=== PATIENT | male | born 1945 | race Caucasian/White ===

== ENCOUNTER 2020-05-08 10:22 | Emergency (ER) | payer OTHER, SELFPAY ==
[2020-05-08 10:33] VITALS: BP 163/53; PULSE 77; RESP 18; TEMP 36.4; O2SAT 98; BMI 24.4
--- NOTE | 2020-05-08 12:18 | XRR_ITS ---
PROCEDURE INFORMATION: Exam: XR Chest, 1 View Exam date and time: 05/08/2020 12:19 PM Age: 75 years old Clinical indication: Other: Syncope TECHNIQUE: Imaging protocol: XR of the chest Views: 1 view. COMPARISON: CR Chest 1 [place] [id number] 03/28/2018 10:21 PM FINDINGS: Lungs: Mild pleural thickening left hemithorax persist. Lungs are well aerated without a focal area of consolidation. Pleural space: Unremarkable. No pleural effusion. No pneumothorax. Heart/Mediastinum: Unremarkable. No cardiomegaly. Bones/joints: Prior sternotomy XR/XR chest 1V portable [id number] IMPRESSION: 1. Mild pleural thickening left hemithorax persist. 2. Lungs are well aerated without a focal area of consolidation.
--- NOTE | 2020-05-08 12:19 | ECG_ITS ---
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 Measurements Intervals [place] Rate: 63 P: ME: -1 QRS: 81 QRSD: 120 T: 36 QT: 394 QTc: 405 Interpretive Statements INDETERMINATE RHYTHM ANTEROSEPTAL MYOCARDIAL INFARCTION , OF INDETERMINATE AGE [40+ ms Q WAVE IN V1-V4] Compared to ECG 03/28/2018 23:02:32 No significant changes Electronically Signed On 05-09-2020 20:24:50 CDT by Tito Hernandez M.D. [id number]
--- NOTE | 2020-05-08 12:57 | ED_ITS ---
HPI - SOB/Dyspnea General: Chief Complaint: Shortness of Breath/Dyspnea Stated Complaint: head pain,sob Time Seen by Provider: 05/08/20 12:26 History of Present Illness: HPI Narrative: 75-year-old male presents to the emergency room with complaint of just generally not feeling well. He had some shortness of breath as well as headaches malaise low-grade subjective fever prior to all of this starting he had a few days of diarrhea. The shortness of breath began 5 days ago diarrhea was a couple of days prior to that. He has a chronic baseline mildly productive cough of clear mucousy sputum it is not changed in character or color or quantity. MD elicited complaint: shortness of breath and cough Pertinent past history: COPD Onset (ago): day(s) Timing: constant Severity: mild Exacerbating factors: exertion and coughing Relieving factors: nothing Known history of: COPD Associated symptoms: Reports chest congestion, cough, lightheadedness, myalgias and nausea; Deny abdominal pain, chest pain, diaphoresis, dizziness, extremity pain, fever(s), hemoptysis, orthopnea, palpitations, paresthesias, polydipsia, polyuria, rash, sense of impending doom, syncope or vomiting Treatment prior to arrival: none Review of Systems Const: Denies: fever(s) or diaphoresis ENMT: Denies: throat pain, ear or mastoid pain, nasal discharge or nasal congestion Card: Reports: lightheadedness; Denies: chest pain, palpitations, syncope or orthopnea Resp: Reports: chest congestion; Denies: hemoptysis GI: Reports: nausea; Denies: abdominal pain or vomiting : Denies: flank pain, dysuria, urinary frequency or urinary urgency Musc: Denies: extremity pain Skin/Breast: Denies: rash or pruritus Neuro: Denies: dizziness Endo: Denies: polyuria or polydipsia PFS ED PFSH: Medical History (Updated 05/08/20 @ 14:48 by Raymundo Gutierrez DO) COPD (chronic obstructive pulmonary disease) Physical Exam Const: COMMON NORMALS: no acute distress GENERAL APPEARANCE: cooperative and comfortable ORIENTATION/CONSCIOUSNESS: Yes oriented to person, Yes oriented to place and Yes oriented to time HENMT: COMMON NORMALS: normocephalic, atraumatic and hearing grossly normal bilaterally HEAD & SCALP: normocephalic and atraumatic Eye: COMMON NORMALS: Equal, round and reactive pupils present, EOMs intact bilaterally, conjunctivae normal and no scleral icterus CONJUNCTIVA: Yes conjunctivae normal PUPIL: Yes Equal, round and reactive pupils present Neck/C-Spine: COMMON NORMALS: full ROM, no lymphadenopathy, supple and no JVD Lymph: LYMPHATIC: no lymphadenopathy noted and no lymphedema noted Resp: AUSCULTATION: crackles (Base) Laterality: bilateral and wheezes expiratory wheezes (mild) Cardio: COMMON NORMALS: no JVD, regular rate, regular rhythm and No murmurs present (Cardio) RATE: regular rate RHYTHM: regular rhythm GI: COMMON NORMALS: Soft to palpation and No hepatosplenomegaly present AUSCULTATION: Yes normoactive bowel sounds PALPATION: Yes Soft to palpation, No Tenderness to palpation present (GI), No Guarding due to palpation present (GI) and Yes No hepatosplenomegaly present Extremity: COMMON NORMALS: normal to inspection, capillary refill normal, no clubbing, cyanosis or edema, no calf tenderness and no pedal edema Neuro: SENSORIUM/ORIENTATION: Yes oriented to person, Yes oriented to place and Yes oriented to time Skin: COMMON NORMALS: no rashes or lesions noted GENERAL SKIN EXAM: no rashes or lesions noted Course Vital Signs: Vital signs: Vital Signs Temperature 97.5 F L 05/08/20 10:33 Pulse Rate 73 05/08/20 15:05 Respiratory Rate 20 H 05/08/20 15:05 Blood Pressure 146/70 05/08/20 15:05 Pulse Oximetry 96 05/08/20 15:05 MDM - SOB/Dyspnea MDM Narrative: Medical decision making narrative: We will discharge him home with at home O2 sat monitor continue to monitor regularly watch for sets of blood fall below 90% or difficulty breathing return if has problems Lab Data: Labs: Lab Results 05/08/20 05/08/20 05/08/20 Range/Units 13:46 13:46 13:46 WBC 6.1 (4.0-10.0) 10^3/ uL RBC 3.42 L (4.1-5.3) 10^6/u L Hgb 11.0 L (11.7-16.6) g/dL Hct 34.6 L (42.0-52.0) % MCV 101.2 H (80-94) fL MCH 32.2 (28.0-34.0) pg MCHC 31.8 (30.0-36.0) g/dL RDW 14.0 (12.1-15.1) % Plt Count 191 (130-400) 10^3/c mm MPV 10.6 H (7.4-10.4) fL Neut % (Auto) 73.9 % Lymph % (Auto) 14.0 % [place] % (Auto) 10.6 % Eos % (Auto) 0.5 % Baso % (Auto) 0.2 % Neut # (Auto) 4.54 (1.8-7.7) 10^3/u L Lymph # (Auto) 0.9 (0.8-4.8) 10^3/u L [place] # (Auto) 0.7 (0.2-0.9) 10^3/u L Eos # (Auto) 0.0 (0.0-0.8) 10^3/u L Baso # (Auto) 0.0 (0.0-0.1) 10^3/u L Nucleated RBC % (a uto) 0 % Nucleated RBCs # 0.0 /100WBC D-Dimer 0.63 H (0-0.59) ug/mIFE U Sodium 136 (136-145) mmol/L Potassium 4.5 (3.5-5.1) mmol/L Chloride 100 (98-107) mmol/L Carbon Dioxide 25 (22-29) mmol/L Anion Gap 15.5 (5-19) BUN 10 (8-23) mg/dL Creatinine 0.8 (0.7-1.2) mg/dL GFR Calculation Not Reportable Glucose 214 H (65-115) mg/dL Calculated Osmolal ity 287 (285-295) mOsm/k g Lactate (0.5-2.2) mmol/L Calcium 9.9 (8.5-10.5) mg/dL Total Bilirubin 0.5 (0.15-1.2) mg/dL AST 35 (0-40) U/L ALT 33 (0-41) U/L Alkaline Phosphata se 93 (40-130) IU/L Troponin T Baselin e (0-15) ng/L NT-Pro-B Natriuret Pep 2152 H (0-450) pg/mL Total Protein 6.9 (6.6-8.7) g/dL Albumin 4.3 (3.5-5.2) g/dL Globulin 2.6 (1.3-4.6) g/dL 05/08/20 05/08/20 Range/Units 13:46 13:46 WBC (4.0-10.0) 10^3/ uL RBC (4.1-5.3) 10^6/u L Hgb (11.7-16.6) g/dL Hct (42.0-52.0) % MCV (80-94) fL MCH (28.0-34.0) pg MCHC (30.0-36.0) g/dL RDW (12.1-15.1) % Plt Count (130-400) 10^3/c mm MPV (7.4-10.4) fL Neut % (Auto) % Lymph % (Auto) % [place] % (Auto) % Eos % (Auto) % Baso % (Auto) % Neut # (Auto) (1.8-7.7) 10^3/u L Lymph # (Auto) (0.8-4.8) 10^3/u L [place] # (Auto) (0.2-0.9) 10^3/u L Eos # (Auto) (0.0-0.8) 10^3/u L Baso # (Auto) (0.0-0.1) 10^3/u L Nucleated RBC % (a uto) % Nucleated RBCs # /100WBC D-Dimer (0-0.59) ug/mIFE U Sodium (136-145) mmol/L Potassium (3.5-5.1) mmol/L Chloride (98-107) mmol/L Carbon Dioxide (22-29) mmol/L Anion Gap (5-19) BUN (8-23) mg/dL Creatinine (0.7-1.2) mg/dL GFR Calculation Glucose (65-115) mg/dL Calculated Osmolal ity (285-295) mOsm/k g Lactate 1.2 (0.5-2.2) mmol/L Calcium (8.5-10.5) mg/dL Total Bilirubin (0.15-1.2) mg/dL AST (0-40) U/L ALT (0-41) U/L Alkaline Phosphata se (40-130) IU/L Troponin T Baselin e 18 H (0-15) ng/L NT-Pro-B Natriuret Pep (0-450) pg/mL Total Protein (6.6-8.7) g/dL Albumin (3.5-5.2) g/dL Globulin (1.3-4.6) g/dL Discharge Plan Discharge Patient Disposition: Home Clinical Impression: COPD (chronic obstructive pulmonary disease), Suspected 2019-nCoV infection Condition: Stable Discharge Orders: Discharge Order (Routine); Ordered 05/08/20 Ordered By: Raymundo Gutierrez Referrals: Hamilton Lovett [Primary Care Provider] - Discharge Diet: Usual diet Discharge Activity: Increase activity as tolerated Discharge Date/Time: 05/08/20 15:05 Coding Level of Care Code ED Access Representative for Deyanira Fwd Exam Comprehensive
[2020-05-08 13:47] VITALS: BP 149/89; PULSE 63; RESP 20; O2SAT 97
[2020-05-08 14:02] LABS: Basophils % 0.2 %; Eosinophils % 0.5 %; Hematocrit 34.6 % (42.0-52.0); Lymphocytes # 0.9 10^3/uL (0.8-4.8); Mean Corpuscular HGB Conc 31.8 g/dL (30.0-36.0); Mean Corpuscular Hemoglobin 32.2 pg (28.0-34.0); Mean Corpuscular Volume 101.2 fL (80-94); Mean Platelet Volume 10.6 fL (7.4-10.4); Monocytes # 0.7 10^3/uL (0.2-0.9); Monocytes % 10.6 %; Neutrophils # 4.54 10^3/uL (1.8-7.7); Neutrophils % 73.9 %; Nucleated Red Blood Cells % 0 %; Platelet Count 191 10^3/cmm (130-400); Red Blood Count 3.42 10^6/uL (4.1-5.3); White Blood Count 6.1 10^3/uL (4.0-10.0)
--- NOTE | 2020-05-08 14:19 | ECG_ITS ---
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 Measurements Intervals [place] Rate: 71 P: MS: -1 QRS: 101 QRSD: 120 T: 53 QT: 377 QTc: 410 Interpretive Statements ATRIAL FLUTTER RIGHT AXIS DEVIATION [QRS AXIS > 100] MODERATE INTRAVENTRICULAR CONDUCTION DELAY [110+ ms QRS DURATION] NONSPECIFIC ST & T-WAVE ABNORMALITY Compared to ECG 05/08/2020 13:18:48 Right-axis deviation now present Intraventricular conduction delay now present T-wave abnormality now present Myocardial infarct finding no longer present Electronically Signed On 05-09-2020 20:51:19 CDT by Tito Hernandez M.D. [id number]
[2020-05-08 14:21] LABS: D Dimer 0.63 ug/mIFEU (0-0.59)
[2020-05-08 14:26] LABS: Lactate (Lactic Acid level) 1.2 mmol/L (0.5-2.2)
[2020-05-08 14:30] LABS: Troponin(5th) Baseline 18 ng/L (0-15)
[2020-05-08 14:38] LABS: Alanine Aminotransferase 33 U/L (0-41); Albumin Level 4.3 g/dL (3.5-5.2); Alkaline Phosphatase 93 IU/L (40-130); Aspartate Amino Transferase 35 U/L (0-40); Blood Urea Nitrogen 10 mg/dL (8-23); Calcium 9.9 mg/dL (8.5-10.5); Carbon Dioxide 25 mmol/L (22-29); Chloride 100 mmol/L (98-107); Globulin 2.6 g/dL (1.3-4.6); Glucose 214 mg/dL (65-115); NT Pro B Type Natriuretic Pept 2152 pg/mL (0-450); Osmolality Calculated 287 mOsm/kg (285-295); Sodium 136 mmol/L (136-145); Total Bilirubin 0.5 mg/dL (0.15-1.2); Total Protein 6.9 g/dL (6.6-8.7)
[2020-05-08 14:43] LABS: Anion Gap 15.5 (5-19)
[2020-05-08 14:44] LABS: Potassium 4.5 mmol/L (3.5-5.1)
[2020-05-08 15:05] VITALS: BP 146/70; PULSE 73; RESP 20; O2SAT 96
[2020-05-10 03:25] LABS: Coronavirus Lab Test PTC Negative
== END 2020-05-08 15:05 | disposition home or self-care (01) ==
PROVIDERS: Nurse Practitioner Family; Emergency Provider Family Medicine; Family Provider Family Medicine; PCP Family Medicine
DX: J44.9 Chronic obstructive pulmonary disease, unspecified (principal); Z20.828 Contact with and (suspected) exposure to other viral communicable diseases
CPT/HCPCS: 12345; 71045; 80053; 83605; 83880; 84484; 85025; 85378; 87635; 93005; 99282; 99283

== ENCOUNTER 2020-08-09 16:47 | Emergency (ER) | payer OTHER, SELFPAY ==
[2020-08-09 16:54] VITALS: BP 167/75; PULSE 78; RESP 24; TEMP 36.6; O2SAT 97; BMI 25.0
--- NOTE | 2020-08-09 17:07 | XRR_ITS ---
PROCEDURE INFORMATION: Exam: XR Chest, 1 View Exam date and time: 08/09/2020 5:20 PM Age: 75 years old Clinical indication: Cough and shortness of breath; Prior surgery; Surgery type: Heart; Additional info: Dyspnea TECHNIQUE: Imaging protocol: XR of the chest Views: 1 view. COMPARISON: CR XR chest 1V portable [id number] 05/08/2020 12:29 PM FINDINGS: Lungs: Lungs are clear bilaterally. Pleural space: No pleural effusion. No pneumothorax. Heart/Mediastinum: Redemonstration of a prosthetic heart valve. Stable mild enlargement of the cardiac silhouette. Mediastinal contours are unremarkable. Vasculature: Stable vascular calcifications in the aorta. Bones/joints: Stable poststernotomy changes in the chest. XR/XR chest 1V portable [id number] IMPRESSION: 1. No acute cardiopulmonary process. 2. Incidental/nonacute findings are listed in the report.
--- NOTE | 2020-08-09 17:09 | ED_ITS ---
Documented by User: Raymundo Gutierrez DO 08/10/20 07:15 HPI - SOB/Dyspnea General: Chief Complaint: Shortness of Breath/Dyspnea Stated Complaint: Weakness/SOB/ Cough Time Seen by Provider: 08/09/20 17:05 History of Present Illness: HPI Narrative: 75-year-old male presents to the emergency room with complaint of shortness of breath for the last 7 days. He also has chills and a cough. He has had some myalgias as well as some diarrhea with it for the last week as well. No anosmia. MD elicited complaint: shortness of breath and cough Pertinent past history: COPD, diabetes and other (Coronary artery disease) Onset (ago): day(s) (7) Timing: constant Severity: mild Exacerbating factors: coughing Relieving factors: rest Known history of: COPD, diabetes and other (Coronary artery disease) Associated symptoms: Reports chest congestion (Chronic at baseline with baseline sputum production no changes), cough and myalgias; Deny abdominal pain, chest pain, diaphoresis, dizziness, extremity pain, fever(s), hemoptysis, lightheadedness, nausea, orthopnea, palpitations, paresthesias, polydipsia, polyuria, rash, sense of impending doom, syncope or vomiting Treatment prior to arrival: none Review of Systems Const: Denies: fever(s) or diaphoresis ENMT: Denies: throat pain, ear or mastoid pain, nasal discharge or nasal congestion Card: Denies: chest pain, palpitations, lightheadedness, syncope or orthopnea Resp: Reports: chest congestion (Chronic at baseline with baseline sputum production no changes); Denies: hemoptysis GI: Denies: abdominal pain, nausea or vomiting : Denies: flank pain, dysuria, urinary frequency or urinary urgency Musc: Denies: extremity pain Skin/Breast: Denies: rash or pruritus Neuro: Denies: dizziness Endo: Denies: polyuria or polydipsia PFS ED PFSH: Medical History (Updated 08/09/20 @ 19:40 by Andrei Gabriel DO) COPD (chronic obstructive pulmonary disease) Coronary artery disease Diabetes mellitus Physical Exam Const: COMMON NORMALS: no acute distress GENERAL APPEARANCE: cooperative and comfortable ORIENTATION/CONSCIOUSNESS: Yes awake, Yes oriented to person, Yes oriented to place and Yes oriented to time HENMT: COMMON NORMALS: normocephalic, atraumatic and hearing grossly normal bilaterally HEAD & SCALP: normocephalic and atraumatic Neck/C-Spine: COMMON NORMALS: no JVD Resp: COMMON NORMALS: normal respiratory effort AUSCULTATION: rhonchi and wheezes Cardio: COMMON NORMALS: no JVD, regular rate, regular rhythm and No murmurs present (Cardio) RATE: regular rate RHYTHM: regular rhythm GI: COMMON NORMALS: Soft to palpation and No hepatosplenomegaly present AUSCULTATION: Yes normoactive bowel sounds PALPATION: Yes Soft to palpation, No Tenderness to palpation present (GI), No Guarding due to palpation present (GI) and Yes No hepatosplenomegaly present Extremity: COMMON NORMALS: normal to inspection, capillary refill normal, no clubbing, cyanosis or edema, no calf tenderness and no pedal edema Neuro: SENSORIUM/ORIENTATION: Yes oriented to person, Yes oriented to place and Yes oriented to time Skin: COMMON NORMALS: no rashes or lesions noted GENERAL SKIN EXAM: no rashes or lesions noted Course Vital Signs: Vital signs: Vital Signs Temperature 97.8 F 08/09/20 16:54 Pulse Rate 78 08/09/20 20:41 Respiratory Rate 18 08/09/20 20:41 Blood Pressure 147/87 08/09/20 20:41 Pulse Oximetry 94 08/09/20 20:41 MDM - SOB/Dyspnea MDM Narrative: Medical decision making narrative: Care turned over to Dr. Gabriel at change of shift. Please see his notes for final diagnosis and disposition. Lab Data: Labs: Lab Results 08/09/20 08/09/20 08/09/20 Range/Units 17:28 17:28 17:28 WBC 7.0 (4.0-10.0) 10^3/ uL RBC 3.58 L (4.1-5.3) 10^6/u L Hgb 11.1 L (11.7-16.6) g/dL Hct 33.2 L (42.0-52.0) % MCV 92.7 (80-94) fL MCH 31.0 (28.0-34.0) pg MCHC 33.4 (30.0-36.0) g/dL RDW 14.4 (12.1-15.1) % Plt Count 210 (130-400) 10^3/c mm MPV 11.8 H (7.4-10.4) fL Neut % (Auto) 61.8 % Lymph % (Auto) 19.2 % [place] % (Auto) 13.0 % Eos % (Auto) 0.3 % Baso % (Auto) 0.3 % Neut # (Auto) 4.34 (1.8-7.7) 10^3/u L Lymph # (Auto) 1.4 (0.8-4.8) 10^3/u L [place] # (Auto) 0.9 (0.2-0.9) 10^3/u L Eos # (Auto) 0.0 (0.0-0.8) 10^3/u L Baso # (Auto) 0.0 (0.0-0.1) 10^3/u L Nucleated RBC % (a uto) 0 % Nucleated RBCs # 0.0 /100WBC PT (12.1-14.9) SECO NDS INR (0.8-1.2) D-Dimer (0-0.59) ug/mIFE U Sodium 131 L (136-145) mmol/L Potassium 4.8 (3.5-5.1) mmol/L Chloride 92 L (98-107) mmol/L Carbon Dioxide 27 (22-29) mmol/L Anion Gap 16.8 (5-19) BUN 14 (8-23) mg/dL Creatinine 1.0 (0.7-1.2) mg/dL GFR Calculation Not Reportable Glucose 368 H (65-115) mg/dL Calculated Osmolal ity 287 (285-295) mOsm/k g Lactic Acid 2.2 (0.5-2.2) mmol/L Calcium 9.8 (8.5-10.5) mg/dL Ferritin 186 (30-400) ng/mL Total Bilirubin 0.2 (0.15-1.2) mg/dL AST 20 (0-40) U/L ALT 22 (0-41) U/L Alkaline Phosphata se 141 H (40-130) IU/L Troponin T Baselin e (0-15) ng/L Troponin T 120 [address] [place] (0-15) ng/L Delta Troponin T (0-10) ABS# Total Protein 7.1 (6.6-8.7) g/dL Albumin 4.1 (3.5-5.2) g/dL Globulin 3.0 (1.3-4.6) g/dL SARS-CoV-2 Ag (Rap id) (Negative) 08/09/20 08/09/20 08/09/20 Range/Units 17:28 17:28 17:32 WBC (4.0-10.0) 10^3/ uL RBC (4.1-5.3) 10^6/u L Hgb (11.7-16.6) g/dL Hct (42.0-52.0) % MCV (80-94) fL MCH (28.0-34.0) pg MCHC (30.0-36.0) g/dL RDW (12.1-15.1) % Plt Count (130-400) 10^3/c mm MPV (7.4-10.4) fL Neut % (Auto) % Lymph % (Auto) % [place] % (Auto) % Eos % (Auto) % Baso % (Auto) % Neut # (Auto) (1.8-7.7) 10^3/u L Lymph # (Auto) (0.8-4.8) 10^3/u L [place] # (Auto) (0.2-0.9) 10^3/u L Eos # (Auto) (0.0-0.8) 10^3/u L Baso # (Auto) (0.0-0.1) 10^3/u L Nucleated RBC % (a uto) % Nucleated RBCs # /100WBC PT 13.70 (12.1-14.9) SECO NDS INR 1.02 (0.8-1.2) D-Dimer 1.31 H (0-0.59) ug/mIFE U Sodium (136-145) mmol/L Potassium (3.5-5.1) mmol/L Chloride (98-107) mmol/L Carbon Dioxide (22-29) mmol/L Anion Gap (5-19) BUN (8-23) mg/dL Creatinine (0.7-1.2) mg/dL GFR Calculation Glucose (65-115) mg/dL Calculated Osmolal ity (285-295) mOsm/k g Lactic Acid (0.5-2.2) mmol/L Calcium (8.5-10.5) mg/dL Ferritin (30-400) ng/mL Total Bilirubin (0.15-1.2) mg/dL AST (0-40) U/L ALT (0-41) U/L Alkaline Phosphata se (40-130) IU/L Troponin T Baselin e 17 H (0-15) ng/L Troponin T 120 Min [place] (0-15) ng/L Delta Troponin T (0-10) ABS# Total Protein (6.6-8.7) g/dL Albumin (3.5-5.2) g/dL Globulin (1.3-4.6) g/dL SARS-CoV-2 Ag (Rap id) Negative (Negative) 08/09/20 Range/Units 19:35 WBC (4.0-10.0) 10^3/ uL RBC (4.1-5.3) 10^6/u L Hgb (11.7-16.6) g/dL Hct (42.0-52.0) % MCV (80-94) fL MCH (28.0-34.0) pg MCHC (30.0-36.0) g/dL RDW (12.1-15.1) % Plt Count (130-400) 10^3/c mm MPV (7.4-10.4) fL Neut % (Auto) % Lymph % (Auto) % [place] % (Auto) % Eos % (Auto) % Baso % (Auto) % Neut # (Auto) (1.8-7.7) 10^3/u L Lymph # (Auto) (0.8-4.8) 10^3/u L [place] # (Auto) (0.2-0.9) 10^3/u L Eos # (Auto) (0.0-0.8) 10^3/u L Baso # (Auto) (0.0-0.1) 10^3/u L Nucleated RBC % (a uto) % Nucleated RBCs # /100WBC PT (12.1-14.9) SECO NDS INR (0.8-1.2) D-Dimer (0-0.59) ug/mIFE U Sodium (136-145) mmol/L Potassium (3.5-5.1) mmol/L Chloride (98-107) mmol/L Carbon Dioxide (22-29) mmol/L Anion Gap (5-19) BUN (8-23) mg/dL Creatinine (0.7-1.2) mg/dL GFR Calculation Glucose (65-115) mg/dL Calculated Osmolal ity (285-295) mOsm/k g Lactic Acid (0.5-2.2) mmol/L Calcium (8.5-10.5) mg/dL Ferritin (30-400) ng/mL Total Bilirubin (0.15-1.2) mg/dL AST (0-40) U/L ALT (0-41) U/L Alkaline Phosphata se (40-130) IU/L Troponin T Baselin e (0-15) ng/L Troponin T 120 Min [place] 15.76 H (0-15) ng/L Delta Troponin T -1.24 L (0-10) ABS# Total Protein (6.6-8.7) g/dL Albumin (3.5-5.2) g/dL Globulin (1.3-4.6) g/dL SARS-CoV-2 Ag (Rap id) (Negative) Discharge Plan Discharge Patient Disposition: Home Clinical Impression: Acute exacerbation of chronic obstructive airways disease, Suspected 2019-nCoV infection Condition: Stable Prescriptions: New dexamethasone 6 mg tablet 6 mg PO DAILY Qty: 5 RF: 0 Discharge Orders: Discharge ED (Routine); Ordered 08/09/20 Ordered By: Andrei Gabriel Referrals: Hamilton Lovett [Primary Care Provider] - 1-3 days Discharge Diet: Advance as tolerated Discharge Activity: Limit activity as instructed Patient Instructions: Chronic Obstructive Pulmonary Disease (ED) Activity Restrictions/Additional Instructions: Medications as directed. Use your inhaler every 4 hours while awake for the next 48 hours, then as needed. Return for increasing shortness of breath despite treatment, inability to control fever, vomiting liquids or medications, other concerning symptoms. You should get a call Wednesday or Wednesday about your Covid PCR test. You should stay at home/quarantine your self until the results of that test are complete and known to be negative. 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 Line Repairer for Chg Fwd Exam Comprehensive Documented by User: Andrei Gabriel DO 08/10/20 00:03 HPI - SOB/Dyspnea General: Chief Complaint: Shortness of Breath/Dyspnea Stated Complaint: Weakness/SOB/ Cough Time Seen by Provider: 08/09/20 17:05 PFSH ED PFSH: Medical History (Updated 08/09/20 @ 19:40 by Andrei Gabriel DO) COPD (chronic obstructive pulmonary disease) Coronary artery disease Diabetes mellitus Course Vital Signs: Vital signs: Vital Signs Temperature 97.8 F 08/09/20 16:54 Pulse Rate 78 08/09/20 20:41 Respiratory Rate 18 08/09/20 20:41 Blood Pressure 147/87 08/09/20 20:41 Pulse Oximetry 94 08/09/20 20:41 MDM - SOB/Dyspnea MDM Narrative: Medical decision making narrative: 5-year-old male checked out to me by Dr. Gutierrez at shift change. This gentleman has had some cough, diarrhea, and shortness of breath. No fever tonight. On my reexamination, he is sitting up in bed, eating a sandwich. Respirations are nonlabored. His chest x-ray is stable from prior, no definite signs of pneumonitis or pneumonia. Hemoglobin is 11.1. White blood cell count is 7. His D-dimer is elevated. His rapid antigen Covid test is negative he is reswabbed for PCR Covid test. He is not requiring oxygen. He will be discharged home. He knows to return for any worsening of his shortness of breath. He is on day 6 or 7 of symptoms. If his test comes back positive in the 10-day window, he could be a candidate for monoclonal antibody infusion. He was made aware of this. Lab Data: Labs: Lab Results 08/09/20 08/09/20 08/09/20 Range/Units 17:28 17:28 17:28 WBC 7.0 (4.0-10.0) 10^3/ uL RBC 3.58 L (4.1-5.3) 10^6/u L Hgb 11.1 L (11.7-16.6) g/dL Hct 33.2 L (42.0-52.0) % MCV 92.7 (80-94) fL MCH 31.0 (28.0-34.0) pg MCHC 33.4 (30.0-36.0) g/dL RDW 14.4 (12.1-15.1) % Plt Count 210 (130-400) 10^3/c mm MPV 11.8 H (7.4-10.4) fL Neut % (Auto) 61.8 % Lymph % (Auto) 19.2 % [place] % (Auto) 13.0 % Eos % (Auto) 0.3 % Baso % (Auto) 0.3 % Neut # (Auto) 4.34 (1.8-7.7) 10^3/u L Lymph # (Auto) 1.4 (0.8-4.8) 10^3/u L [place] # (Auto) 0.9 (0.2-0.9) 10^3/u L Eos # (Auto) 0.0 (0.0-0.8) 10^3/u L Baso # (Auto) 0.0 (0.0-0.1) 10^3/u L Nucleated RBC % (a uto) 0 % Nucleated RBCs # 0.0 /100WBC PT (12.1-14.9) SECO NDS INR (0.8-1.2) D-Dimer (0-0.59) ug/mIFE U Sodium 131 L (136-145) mmol/L Potassium 4.8 (3.5-5.1) mmol/L Chloride 92 L (98-107) mmol/L Carbon Dioxide 27 (22-29) mmol/L Anion Gap 16.8 (5-19) BUN 14 (8-23) mg/dL Creatinine 1.0 (0.7-1.2) mg/dL GFR Calculation Not Reportable Glucose 368 H (65-115) mg/dL Calculated Osmolal ity 287 (285-295) mOsm/k g Lactic Acid 2.2 (0.5-2.2) mmol/L Calcium 9.8 (8.5-10.5) mg/dL Ferritin 186 (30-400) ng/mL Total Bilirubin 0.2 (0.15-1.2) mg/dL AST 20 (0-40) U/L ALT 22 (0-41) U/L Alkaline Phosphata se 141 H (40-130) IU/L Troponin T Baselin e (0-15) ng/L Troponin T 120 [address] [place] (0-15) ng/L Delta Troponin T (0-10) ABS# Total Protein 7.1 (6.6-8.7) g/dL Albumin 4.1 (3.5-5.2) g/dL Globulin 3.0 (1.3-4.6) g/dL SARS-CoV-2 Ag (Rap id) (Negative) 08/09/20 08/09/20 08/09/20 Range/Units 17:28 17:28 17:32 WBC (4.0-10.0) 10^3/ uL RBC (4.1-5.3) 10^6/u L Hgb (11.7-16.6) g/dL Hct (42.0-52.0) % MCV (80-94) fL MCH (28.0-34.0) pg MCHC (30.0-36.0) g/dL RDW (12.1-15.1) % Plt Count (130-400) 10^3/c mm MPV (7.4-10.4) fL Neut % (Auto) % Lymph % (Auto) % [place] % (Auto) % Eos % (Auto) % Baso % (Auto) % Neut # (Auto) (1.8-7.7) 10^3/u L Lymph # (Auto) (0.8-4.8) 10^3/u L [place] # (Auto) (0.2-0.9) 10^3/u L Eos # (Auto) (0.0-0.8) 10^3/u L Baso # (Auto) (0.0-0.1) 10^3/u L Nucleated RBC % (a uto) % Nucleated RBCs # /100WBC PT 13.70 (12.1-14.9) SECO NDS INR 1.02 (0.8-1.2) D-Dimer 1.31 H (0-0.59) ug/mIFE U Sodium (136-145) mmol/L Potassium (3.5-5.1) mmol/L Chloride (98-107) mmol/L Carbon Dioxide (22-29) mmol/L Anion Gap (5-19) BUN (8-23) mg/dL Creatinine (0.7-1.2) mg/dL GFR Calculation Glucose (65-115) mg/dL Calculated Osmolal ity (285-295) mOsm/k g Lactic Acid (0.5-2.2) mmol/L Calcium (8.5-10.5) mg/dL Ferritin (30-400) ng/mL Total Bilirubin (0.15-1.2) mg/dL AST (0-40) U/L ALT (0-41) U/L Alkaline Phosphata se (40-130) IU/L Troponin T Baselin e 17 H (0-15) ng/L Troponin T 120 [address] [place] (0-15) ng/L Delta Troponin T (0-10) ABS# Total Protein (6.6-8.7) g/dL Albumin (3.5-5.2) g/dL Globulin (1.3-4.6) g/dL SARS-CoV-2 Ag (Rap id) Negative (Negative) 08/09/20 Range/Units 19:35 WBC (4.0-10.0) 10^3/ uL RBC (4.1-5.3) 10^6/u L Hgb (11.7-16.6) g/dL Hct (42.0-52.0) % MCV (80-94) fL MCH (28.0-34.0) pg MCHC (30.0-36.0) g/dL RDW (12.1-15.1) % Plt Count (130-400) 10^3/c mm MPV (7.4-10.4) fL Neut % (Auto) % Lymph % (Auto) % [place] % (Auto) % Eos % (Auto) % Baso % (Auto) % Neut # (Auto) (1.8-7.7) 10^3/u L Lymph # (Auto) (0.8-4.8) 10^3/u L [place] # (Auto) (0.2-0.9) 10^3/u L Eos # (Auto) (0.0-0.8) 10^3/u L Baso # (Auto) (0.0-0.1) 10^3/u L Nucleated RBC % (a uto) % Nucleated RBCs # /100WBC PT (12.1-14.9) SECO NDS INR (0.8-1.2) D-Dimer (0-0.59) ug/mIFE U Sodium (136-145) mmol/L Potassium (3.5-5.1) mmol/L Chloride (98-107) mmol/L Carbon Dioxide (22-29) mmol/L Anion Gap (5-19) BUN (8-23) mg/dL Creatinine (0.7-1.2) mg/dL GFR Calculation Glucose (65-115) mg/dL Calculated Osmolal ity (285-295) mOsm/k g Lactic Acid (0.5-2.2) mmol/L Calcium (8.5-10.5) mg/dL Ferritin (30-400) ng/mL Total Bilirubin (0.15-1.2) mg/dL AST (0-40) U/L ALT (0-41) U/L Alkaline Phosphata se (40-130) IU/L Troponin T Baselin e (0-15) ng/L Troponin T 120 Min [place] 15.76 H (0-15) ng/L Delta Troponin T -1.24 L (0-10) ABS# Total Protein (6.6-8.7) g/dL Albumin (3.5-5.2) g/dL Globulin (1.3-4.6) g/dL SARS-CoV-2 Ag (Rap id) (Negative) Discharge Plan Discharge Patient Disposition: Home Clinical Impression: Acute exacerbation of chronic obstructive airways disease, Suspected 2019-nCoV infection Condition: Stable Prescriptions: New dexamethasone 6 mg tablet 6 mg PO DAILY Qty: 5 RF: 0 Discharge Orders: Discharge ED (Routine); Ordered 08/09/20 Ordered By: Andrei Gabriel Referrals: Hamilton Lovett [Primary Care Provider] - 1-3 days Discharge Diet: Advance as tolerated Discharge Activity: Limit activity as instructed Patient Instructions: Chronic Obstructive Pulmonary Disease (ED) Activity Restrictions/Additional Instructions: Medications as directed. Use your inhaler every 4 hours while awake for the next 48 hours, then as needed. Return for increasing shortness of breath despite treatment, inability to control fever, vomiting liquids or medications, other concerning symptoms. You should get a call Wednesday or Wednesday about your Covid PCR test. You should stay at home/quarantine your self until the results of that test are complete and known to be negative. 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 Line Repairer for Deyan[employer] Fwd Exam Comprehensive
[2020-08-09 17:26] VITALS: O2SAT 97
--- NOTE | 2020-08-09 17:40 | PC.NURSE ---
portable xray at bedside
--- NOTE | 2020-08-09 17:49 | ECG_ITS ---
[facility] Test Date: 2020-08-09 Pat Name: Anuj Irving Department: Room: Gender: Male Telephone Sales Representative: : 1945 Requested By: Raymundo Tomas Order Number: [id number] Dolly MD: Ariana Schwartz M.D. Measurements Intervals [place] Rate: 60 P: 68 [place]: 153 QRS: 74 QRSD: 116 T: 40 QT: 429 QTc: 431 Interpretive Statements SINUS RHYTHM LOW QRS VOLTAGE IN PRECORDIAL LEADS [QRS DEFLECTION < 1.0 mV IN CHEST LEADS] POSSIBLE ANTERIOR MYOCARDIAL INFARCTION , OF INDETERMINATE AGE [30 ms Q WAVE IN V3/V4, OR R < 0.2 mV IN V4] Compared to ECG 05/08/2020 14:39:07 Low QRS voltage now present Myocardial infarct finding now present Atrial flutter no longer present Right-axis deviation no longer present Intraventricular conduction delay no longer present T-wave abnormality no longer present Electronically Signed On 08-11-2020 9:14:52 ADMINISTRATIVE UNDERWRITER by Ariana Schwartz M.D. [email or web address]
[2020-08-09 18:12] LABS: Basophils % 0.3 %; Eosinophils % 0.3 %; Hematocrit 33.2 % (42.0-52.0); Hemoglobin 11.1 g/dL (11.7-16.6); Lymphocytes # 1.4 10^3/uL (0.8-4.8); Lymphocytes % 19.2 %; Mean Corpuscular HGB Conc 33.4 g/dL (30.0-36.0); Mean Corpuscular Volume 92.7 fL (80-94); Mean Platelet Volume 11.8 fL (7.4-10.4); Monocytes # 0.9 10^3/uL (0.2-0.9); Neutrophils # 4.34 10^3/uL (1.8-7.7); Neutrophils % 61.8 %; Nucleated Red Blood Cells % 0 %; Platelet Count 210 10^3/cmm (130-400); Red Blood Count 3.58 10^6/uL (4.1-5.3); Red Cell Distribution Width 14.4 % (12.1-15.1)
[2020-08-09 18:22] LABS: Lactic Sepsis W/Reflex 2.2 mmol/L (0.5-2.2)
[2020-08-09 18:27] LABS: Alanine Aminotransferase 22 U/L (0-41); Albumin Level 4.1 g/dL (3.5-5.2); Alkaline Phosphatase 141 IU/L (40-130); Anion Gap 16.8 (5-19); Aspartate Amino Transferase 20 U/L (0-40); Blood Urea Nitrogen 14 mg/dL (8-23); Calcium 9.8 mg/dL (8.5-10.5); Carbon Dioxide 27 mmol/L (22-29); Chloride 92 mmol/L (98-107); Ferritin 186 ng/mL (30-400); Glucose 368 mg/dL (65-115); Osmolality Calculated 287 mOsm/kg (285-295); Potassium 4.8 mmol/L (3.5-5.1); Sodium 131 mmol/L (136-145); Total Bilirubin 0.2 mg/dL (0.15-1.2); Total Protein 7.1 g/dL (6.6-8.7)
[2020-08-09 18:31] LABS: SARS Covid-2 Antigen Negative (Negative)
[2020-08-09 18:33] LABS: Slide Review Slide Review Perform
[2020-08-09 18:34] LABS: Troponin(5th) Baseline 17 ng/L (0-15)
[2020-08-09 18:35] LABS: INR 1.02 (0.8-1.2)
[2020-08-09 18:38] LABS: D Dimer 1.31 ug/mIFEU (0-0.59)
[2020-08-09] MEDS: dexamethasone 4 mg/mL INJ 6 MG IVP (18:40)
[2020-08-09 18:52] VITALS: BP 132/80; PULSE 60; RESP 23; O2SAT 98
[2020-08-09 19:00] VITALS: BP 144/84; PULSE 87; RESP 18; O2SAT 97
[2020-08-09 19:39] LABS: Reflex Lactate Order REFLEX LACTIC ORDERD
[2020-08-09 20:00] VITALS: BP 158/78; PULSE 82; RESP 18; O2SAT 97
[2020-08-09 20:03] LABS: Troponin 5 2HR 15.76 ng/L (0-15)
[2020-08-09 20:27] LABS: Troponin 5 2HR Delta -1.24 ABS# (0-10)
[2020-08-09 20:41] VITALS: BP 147/87; PULSE 78; RESP 18; O2SAT 94
[2020-08-11 18:29] LABS: Coronavirus Test Green County Not Detected
== END 2020-08-09 20:43 | disposition home or self-care (01) ==
PROVIDERS: Family Medicine; Emergency Provider Emergency Medicine; PCP Family Medicine
DX: J44.1 Chronic obstructive pulmonary disease with (acute) exacerbation (principal); Z20.822 Contact with and (suspected) exposure to COVID-19; I25.10 Atherosclerotic heart disease of native coronary artery without angina pectoris; E11.9 Type 2 diabetes mellitus without complications
CPT/HCPCS: 12345; 71045; 80053; 82728; 83605; 84484; 85025; 85378; 85610; 87426; 87635; 93005; 96374; 99283; 99284; J1100

== ENCOUNTER 2021-07-12 10:54 | Observation (INO) | payer OTHER, MEDICARE, SELFPAY ==
--- NOTE | 2021-07-12 11:05 | XRR_ITS ---
PROCEDURE INFORMATION: Exam: XR Chest Exam date and time: 07/12/2021 11:05 AM Age: 76 years old Clinical indication: Dyspnea TECHNIQUE: Imaging protocol: XR of the chest. Views: 1 view. COMPARISON: CR XR chest 1V portable [id number] 08/09/2020 5:28 PM FINDINGS: Tubes, catheters and devices: There is prosthetic mitral valve. Lungs: Lungs are moderately hyperinflated. Visualized portions of the lungs are otherwise clear. Pleural spaces: Unremarkable. No pleural effusion. No pneumothorax. Heart/Mediastinum: See Bones/joints finding. Bones/joints: Sternotomy wires and mediastinal surgical clips are present, consistent with previous coronary arterial bypass grafting. XR/XR chest 1V portable [id number] IMPRESSION: 1. Pulmonary emphysema. 2. No acute infiltrate.
[2021-07-12 11:17] VITALS: BP 120/57; PULSE 91; RESP 20; O2SAT 91
--- NOTE | 2021-07-12 11:21 | W.ED.GENADLT ---
HPI - General Adult General: Chief complaint: Weakness Stated complaint: WEAKNESS/ WHEEZING Time Seen by Provider: 07/12/21 11:01 History of Present Illness: HPI narrative: Patient is a 76-year-old male with history of CAD w/ CABG from 2009, prosthetic mitral valve repalcement, COPD followed by cardiology at [facility] presenting to the emergency room with complaints generalized weakness and inability get up from the ground earlier this morning. Patient for the last 3 days point has become increasingly short of breath physical activity. Earlier this morning, patient was sitting down when he could not get up. His called EMS and patient was brought to the emergency room. Patient has no complaints of cough, runny nose, sore throat, fever/chills, abdominal complaints diarrhea, melena or hematochezia. Patient tells me that he tries to use disability for the last 3 days without any improvement in his dyspnea. He does not remember when his last catheter echo was. Onset: inability to get up x 1 hr ago, dyspnea on exertion x 3 days Duration: ongoing Location: home Severity:moderate Review of Systems Narrative: Constitutional: No fever, no chills. HEENT: No vision changes CV: No chest pain, no palpitations PULM: no cough, +dyspnea. GI: No abdominal pain, no N/V/D. : No dysuria MSKEL: No muscle pain SKIN: No new rashes, no lesions. NEURO: No headache, no focal weakness. HEME: No visible bruises PSYCH: Normal mood PFSH ED PFSH: Medical History (Updated 08/17/20 @ 00:00 by ) COPD (chronic obstructive pulmonary disease) Coronary artery disease Diabetes mellitus Physical Exam Narrative: EXAM NARRATIVE: Head: Atraumatic Eyes: PERRL, conjunctiva without injection ENT: Mucous membrane moist NECK: Supple, ROM intact LUNGS: +b/l wheezing diffusely CV: RRR ABDOMEN: Soft, nontender in all quadrants EXTREMITY: Normal ROM SKIN: No rash or erythema NEURO: Awake and alert, no focal motor deficits PSYCH: Normal mood and affect Course Vital Signs: Vital signs: Vital Signs Pulse Rate 102 H 07/12/21 12:52 Respiratory Rate 18 07/12/21 12:52 Blood Pressure 126/62 07/12/21 12:52 Pulse Oximetry 98 07/12/21 12:52 MDM - General Adult MDM Narrative: Medical decision making narrative: 76-year-old male with history of COPD, CABG presenting to the emergency room for complaints of generalized weakness and inability to get up from the ground earlier today. On exam, patient was noted to be bilateral wheezing, satting at 93% on room air. Had a conversation with patient's was tells me that patient has exertional dyspnea for the last 3 days. EKG showing regular sinus rhythm at HT of [93]. Normal axis. No ST elevations/depressions to suggest coronary occlusion. Normal IA, QRS, QT intervals. Troponin within normal limit. BNP is noted to be 1200. Previous BNP of 2000 consistent with baseline. Patient has no signs of volume overload at this time. Given high HEART score and no recent cardiac evaluation in over 2 years in the setting of exertional chest pain, patient will admitted for chest pain workup. Wheezing improved with a breathing treamtent. Disposition: Admission Lab Data: Labs: Lab Results 07/12/21 07/12/21 07/12/21 11:30 11:30 11:30 WBC 8.2 10^3/uL 10^3/ uL (4.0-10.0) RBC 3.89 10^6/uL L 10 ^6/uL (4.1-5.3) Hgb 12.5 g/dL g/dL (11.7-16.6) Hct 37.5 % L % (42.0-52.0) MCV 96.4 fl H fl (80-94) MCH 32.1 pg pg (28.0-34.0) MCHC 33.3 g/dL g/dL (30.0-36.0) RDW 14.8 % % (12.1-15.1) Plt Count 152 10^3/cmm 10^3 /cmm (130-400) MPV 12.0 fL H fL (7.4-10.4) Neut % (Auto) 71.0 % % Lymph % (Auto) 10.6 % % [place] % (Auto) 15.9 % % Eos % (Auto) 0.1 % % Baso % (Auto) 0.1 % % Neut # (Auto) 5.82 10^3/uL 10^3 /uL (1.8-7.7) Lymph # (Auto) 0.9 10^3/uL 10^3/ uL (0.8-4.8) [place] # (Auto) 1.3 10^3/uL H 10^ 3/uL (0.2-0.9) Eos # (Auto) 0.0 10^3/uL 10^3/ uL (0.0-0.8) Baso # (Auto) 0.0 10^3/uL 10^3/ uL (0.0-0.1) Nucleated RBC % (a uto) 0 % % Nucleated RBCs # 0.0 /100WBC /100W BC Sodium 140 mmol/L mmol/L (136-145) Potassium 4.9 mmol/L mmol/L (3.5-5.1) Chloride 102 mmol/L mmol/L (98-107) Carbon Dioxide 18 mmol/L L mmol/ L (22-29) Anion Gap 24.9 H (5-19) BUN 19 mg/dL mg/dL (8-23) Creatinine 1.1 mg/dL mg/dL (0.7-1.2) GFR Calculation Not Reportable Glucose 215 mg/dL H mg/dL (65-115) Calculated Osmolal ity 299 mOsm/kg H mOs m/kg (285-295) Calcium 8.7 mg/dL mg/dL (8.5-10.5) Troponin T Baselin e 15 ng/L ng/L (0-15) Troponin T 120 Min [place] Troponin T NT-Pro-B Natriuret Pep 1223 pg/mL H pg/m L (0-450) 07/12/21 13:15 WBC RBC Hgb Hct MCV MCH MCHC RDW Plt Count MPV Neut % (Auto) Lymph % (Auto) [place] % (Auto) Eos % (Auto) Baso % (Auto) Neut # (Auto) Lymph # (Auto) [place] # (Auto) Eos # (Auto) Baso # (Auto) Nucleated RBC % (a uto) Nucleated RBCs # Sodium Potassium Chloride Carbon Dioxide Anion Gap BUN Creatinine GFR Calculation Glucose Calculated Osmolal ity Calcium Troponin T Baselin e Troponin T 120 Min [place] 15.79 ng/L H ng/L (0-15) Delta Troponin T 0.79 ABS# ABS# (0-10) NT-Pro-B Natriuret Pep Discharge Plan Discharge Prescriptions: No Action dexamethasone 6 mg tablet 6 mg PO DAILY Qty: 5 RF: 0 Coding Level of Care Code ED Chief Development Officer for Deyanira Pinon
[2021-07-12] MEDS: ipratropium-albuterol 3 mL Neb INHALATION ×3 (11:28→12:09)
[2021-07-12 11:47] LABS: Basophils % 0.1 %; Eosinophils % 0.1 %; Hematocrit 37.5 % (42.0-52.0); Hemoglobin 12.5 g/dL (11.7-16.6); Lymphocytes # 0.9 10^3/uL (0.8-4.8); Lymphocytes % 10.6 %; Mean Corpuscular HGB Conc 33.3 g/dL (30.0-36.0); Mean Corpuscular Hemoglobin 32.1 pg (28.0-34.0); Mean Corpuscular Volume 96.4 fl (80-94); Monocytes # 1.3 10^3/uL (0.2-0.9); Monocytes % 15.9 %; Neutrophils # 5.82 10^3/uL (1.8-7.7); Nucleated Red Blood Cells % 0 %; Platelet Count 152 10^3/cmm (130-400); Red Blood Count 3.89 10^6/uL (4.1-5.3); Red Cell Distribution Width 14.8 % (12.1-15.1); White Blood Count 8.2 10^3/uL (4.0-10.0)
[2021-07-12 12:10] LABS: Troponin(5th) Baseline 15 ng/L (0-15)
[2021-07-12 12:17] LABS: Anion Gap 24.9 (5-19); Blood Urea Nitrogen 19 mg/dL (8-23); Calcium 8.7 mg/dL (8.5-10.5); Carbon Dioxide 18 mmol/L (22-29); Chloride 102 mmol/L (98-107); Glucose 215 mg/dL (65-115); NT Pro B Type Natriuretic Pept 1223 pg/mL (0-450); Osmolality Calculated 299 mOsm/kg (285-295); Potassium 4.9 mmol/L (3.5-5.1); Sodium 140 mmol/L (136-145)
[2021-07-12 12:52] VITALS: BP 126/62; PULSE 102; RESP 18; O2SAT 98
--- NOTE | 2021-07-12 13:00 | PC.NURSE ---
Patient given lunch
--- NOTE | 2021-07-12 13:05 | ECG_ITS ---
[facility] Test Date: 2021-07-12 Pat Name: Anuj Irving Department: Room: Gender: Male Cut Pressman: : 1945 Requested By: Lanie Hooker Order Number: [id number] Reading MD: CECE BLOOM Measurements Intervals [place] Rate: 93 P: -69 MI: 203 QRS: 81 QRSD: 121 T: -27 QT: 379 QTc: 473 Interpretive Statements SINUS RHYTHM ANTEROSEPTAL MYOCARDIAL INFARCTION , OF INDETERMINATE AGE [40+ ms Q WAVE IN V1-V4] MODERATE T-WAVE ABNORMALITY, CONSIDER INFERIOR ISCHEMIA [-0.1+ mV T-WAVE IN II/aVF] Compared to ECG 07/12/2021 11:57:01 T-wave abnormality now present Possible ischemia now present First degree AV block no longer present Myocardial infarct finding still present Electronically Signed On 07-13-2021 19:59:52 IT QUALITY ANALYST by CECE BLOOM [id number]
[2021-07-12 14:07] LABS: Troponin 5 2HR 15.79 ng/L (0-15); Troponin 5 2HR Delta 0.79 ABS# (0-10)
--- NOTE | 2021-07-12 16:50 | PM.HP ---
Providers/Chief Complaint Primary Care Provider: Hamilton Lovett Chief Complaint: WEAKNESS/ WHEEZING History of Present Illness Anuj Irving is a 76 year old male who is presenting today for leg weakness. Patient is stating that today when he got out of his chair he just could not get enough energy to keep his balance, his legs gave up on him and he sat on the floor. No chest pain, no strokelike symptoms, no seizure-like activities. Patient is stating that he is active for his age she takes care of daily activities at home, rakes leaves take care of his yard. No chest pain. He occasionally gets short of breath. He was on oxygen in the past however does not require any for his COPD. 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 His flight control manager was in [place]. Today his main complaint is leg weakness: By the time I saw him he was nonfocal, able to move his upper and lower extremities without any limitations, has good strength, patient stated that he walked in the emergency room without any problems, he thinks he is back to his baseline He is worried about his sugar because he does not eat very much at home after taking insulin, no recent chest pain, fever, he is vaccinated for COVID-19 In the ER normal hemodynamics EKG without any ischemic or infarctive changes, hospital requested to admit him for observation because of his recent leg weakness Normal TSH, BNP 1200, clinically does not look fluid overloaded, chest x-ray without from edema, no infiltrate EKG without ischemic or infarctive changes Troponin without significant delta Review of Systems Const: Reports: fatigue; Denies: fever(s), chills or body aches Eyes: Denies: change in vision ENMT: Denies: throat pain Card: Denies: chest pain Resp: Reports: dyspnea GI: Denies: abdominal pain : Denies: flank pain Musc: Denies: neck pain Skin/Breast: Denies: rash Neuro: Denies: headache(s) Psych: Denies: anxiety Endo: Denies: polyuria Marvel/Lymph: Denies: easy bruising All/Imm: Denies: urticaria Medications/Allergies Home Medications Medication Instructions Recorded Confirmed Last Taken Type albuterol sulfate 2 puff INHALATION QID PRN 07/12/21 07/12/21 Unknown History apixaban [Eliquis] 5 mg PO BID 07/12/21 07/12/21 07/12/21 History atorvastatin 40 mg PO DAILY 07/12/21 07/12/21 07/11/21 History cholecalciferol (vitamin D3) 25 mcg PO DAILY 07/12/21 07/12/21 07/12/21 History [Vitamin D3] docusate sodium 200 mg PO BEDTIME 07/12/21 07/12/21 07/11/21 History ferrous gluconate 324 mg PO BID 07/12/21 07/12/21 07/12/21 History furosemide [Lasix] 20 mg PO DAILY 07/12/21 07/12/21 07/12/21 History glipizide 5 mg PO BID 07/12/21 07/12/21 07/12/21 History insulin glargine [Lantus Solostar 15 unit SUBCUT BID 07/12/21 07/12/21 07/12/21 History U-100 Insulin] ipratropium bromide 1 puff INHALATION QID 07/12/21 07/12/21 Unknown History lisinopril 5 mg PO DAILY 07/12/21 07/12/21 07/12/21 History metformin 1,000 mg PO BID 07/12/21 07/12/21 07/12/21 History metoprolol tartrate 50 mg PO BID 07/12/21 07/12/21 07/12/21 History multivitamin 1 tab PO DAILY 07/12/21 07/12/21 07/12/21 History omeprazole 40 mg PO BID 07/12/21 07/12/21 07/12/21 History potassium chloride 10 meq PO DAILY 07/12/21 07/12/21 07/12/21 History Allergies Allergy/AdvReac Type Severity Reaction Status Date / Time No Known Allergies Allergy Verified 05/08/20 10:38 PFSH Acute PFSH: Medical History (Updated 07/12/21 @ 18:08 by Asya Giron MD) COPD (chronic obstructive pulmonary disease) Coronary artery disease Diabetes mellitus HTN (hypertension) Surgical History (Updated 07/12/21 @ 18:08 by Asya Giron MD) 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 Family History (Updated 07/12/21 @ 18:05 by Asya Giron MD) Denies family history of Diabetes Clotting disorder Dementia Social History (Updated 07/12/21 @ 18:05 by Asya Giron MD) Smoking and tobacco status: current every day smoker Alcohol intake: never Substance/Drug Use: never Household members: spouse Housing: House Vitals/I&O/Wt Last Vital Signs Pulse 102 H 07/12/21 12:52 Resp 18 07/12/21 12:52 BP 126/62 07/12/21 12:52 Pulse Ox 98 07/12/21 12:52 Physical Exam Narrative: EXAM NARRATIVE: Very pleasant elderly male Appears stated age Clinically euvolemic Mild rhonchi at the base of the lungs Saturating well on room air Variable S1, S2 with systolic murmur Soft abdomen No signs of focal deficits Abdomen soft No signs of edema No signs of meningismus Has good strength of upper and lower extremities No focal deficit NIH 0 Data : 07/12/21 11:30 07/12/21 11:30 A&P Assessment and plan (1) Generalized weakness: Status: Acute Additional A&P Information Generalized weakness Check TSH No active chest pain or shortness of breath Saturating well on room air Troponin without significant delta EKG without ischemic changes We will check B12 level will request PT evaluation in the morning Consistent carb diet Hyperglycemia noted, will check A1c level, will request diabetic teaching at discharge Plan to discharge him tomorrow if clinically stable We will request echo Keep him on low-dose Lasix for now however clinically euvolemic Full code Attestations Medical Necessity Statement*: Less than 2 midnights anticipated Time Spent in Patient Care: Greater than 35 minutes Coding Level of Care Code Acute Tracer Clerk for Deyanira Pinon Diagnoses Generalized weakness R53.1
--- NOTE | 2021-07-12 17:05 | ECG_ITS ---
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: : 1945 Requested By: Lanie Hooker Order Number: [id number] Reading MD: CEEC BLOOM Measurements Intervals Warren Rate: 92 P: 0 WA: 288 QRS: 44 QRSD: 101 T: 60 QT: 361 QTc: 447 Interpretive Statements SINUS RHYTHM WITH FIRST DEGREE AV BLOCK POSSIBLE ANTERIOR MYOCARDIAL INFARCTION , OF INDETERMINATE AGE [30 ms Q WAVE IN V3/V4, OR R < 0.2 mV IN V4] Compared to ECG 08/09/2020 17:58:42 First degree AV block now present Myocardial infarct finding still present Electronically Signed On 07-13-2021 19:59:57 REGISTRATION MANAGER by CECE BLOOM [email or web address]
[2021-07-12 18:12] LABS: Troponin 5 6HR 14.62 ng/L (0-15)
[2021-07-12 18:13] LABS: Troponin 5 6HR Delta -0.38 ng/L (0-12)
[2021-07-12 19:01] LABS: Vitamin B12 607 pg/mL (232-1245)
[2021-07-12 19:09] LABS: Estmated Average Glucose 163; Hemoglobin A1C 7.3 % (4.0-6.0)
[2021-07-12 19:55] VITALS: BMI 27.1
[2021-07-12 20:04] VITALS: BP 126/62; PULSE 102; RESP 18; O2SAT 98
[2021-07-12] MEDS: FUROsemide 20 mg Tablet PO (20:35)
[2021-07-12] MEDS: pantoprazole DR 40 mg Tablet PO (20:35)
[2021-07-12] MEDS: docusate sodium 100 mg Capsule 200 MG PO (20:35)
[2021-07-12] MEDS: apixaban 5 mg Tablet PO (20:35)
[2021-07-12] MEDS: insulin glargine 100 units/1 mL 15 UNIT SUBCUT (21:14)
[2021-07-12] MEDS: insulin lispro 100 unit/1 mL SUBCUT (21:15)
[2021-07-12 23:47] VITALS: BP 121/71; PULSE 89; RESP 18; TEMP 36.8; O2SAT 96
[2021-07-13] VITALS (8 sets, daily range): BP systolic 127–159; BP diastolic 67–75; PULSE 76–93; RESP 16–19; TEMP 36.4–36.8; O2SAT 97–98
[2021-07-13 06:25] LABS: Hematocrit 30.9 % (42.0-52.0); Hemoglobin 10.5 g/dL (11.7-16.6); Lymphocytes # 0.5 10^3/uL (0.8-4.8); Lymphocytes % 10.2 %; Mean Corpuscular Hemoglobin 32.5 pg (28.0-34.0); Mean Corpuscular Volume 95.7 fl (80-94); Mean Platelet Volume 11.5 fL (7.4-10.4); Monocytes # 0.6 10^3/uL (0.2-0.9); Monocytes % 11.4 %; Neutrophils # 3.94 10^3/uL (1.8-7.7); Neutrophils % 77.6 %; Nucleated Red Blood Cells % 0 %; Platelet Count 129 10^3/cmm (130-400); Red Blood Count 3.23 10^6/uL (4.1-5.3); Red Cell Distribution Width 14.6 % (12.1-15.1); White Blood Count 5.1 10^3/uL (4.0-10.0)
[2021-07-13 07:08] LABS: Alanine Aminotransferase 18 U/L (0-41); Albumin Level 4.1 g/dL (3.5-5.2); Alkaline Phosphatase 83 IU/L (40-130); Anion Gap 19.9 (5-19); Aspartate Amino Transferase 32 U/L (0-40); Blood Urea Nitrogen 23 mg/dL (8-23); Calcium 8.5 mg/dL (8.5-10.5); Carbon Dioxide 20 mmol/L (22-29); Chloride 100 mmol/L (98-107); Globulin 2.3 g/dL (1.3-4.6); Glucose 282 mg/dL (65-115); Osmolality Calculated 294 mOsm/kg (285-295); Potassium 4.9 mmol/L (3.5-5.1); Sodium 135 mmol/L (136-145); Total Bilirubin 0.7 mg/dL (0.15-1.2); Total Protein 6.4 g/dL (6.6-8.7)
[2021-07-13 07:10] LABS: Magnesium 2.1 mg/dL (1.7-2.3)
[2021-07-13] MEDS: insulin lispro 100 unit/1 mL SUBCUT ×2 (09:32→13:47)
[2021-07-13] MEDS: insulin glargine 100 units/1 mL 15 UNIT SUBCUT (09:33)
[2021-07-13] MEDS: atorvastatin 40 mg Tablet PO (09:33)
[2021-07-13] MEDS: potassium chloride ER 10 mEq Tablet PO (09:33)
[2021-07-13] MEDS: pantoprazole DR 40 mg Tablet PO (09:33)
[2021-07-13] MEDS: apixaban 5 mg Tablet PO (09:33)
[2021-07-13] MEDS: lisinopril 5 mg Tablet PO (09:33)
[2021-07-13] MEDS: metoprolol tartrate 50 mg Tablet PO (09:33)
--- NOTE | 2021-07-13 10:11 | PC.CHAP ---
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 administration specialist visit [] Patient/Family/Request visit [] Outpatient visit [] Follow-up visit [] Physician referral [] Code/Alert [x] Routine visit [] Staff referral [] Actively dying [] Patient sleeping [] Family support [] [] Out of room [] Palliative care [] [] Receiving care in room [] Pre-surgical visit [] Trauma [] Long length of stay [] ICU visit [] Other: Relational/Emotional Strength [x] Patient feels connected with others/family/visitors/staff [] Distress [] Loneliness/isolation [] Abandonment Spirituality of Patient [x] Person of Laxmi [] Attends Taoism of their Laxmi [x] Believes in Prayer [x Reads Bible or Faith materials [] There are Spiritual issues to be addressed 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 Interventions [x] Prayer [x] Active listening [x] Non-anxious presence [x] Spiritual/emotional support [] Crisis/trauma care [] Spiritual counseling [] Bereavement support [] Provided bereavement packet [] Provided Bible/devotional materials [] Provided toy/stuffed animal, coloring book to patient or family member [] Provided Communion [] Anointing/[place] [] Salvation [x] Completed spiritual assessment [] Other: Impact on Illness or Injury [] Angry [] Fearful [] Anxious [] Often cries [] Exhaustion [] Unable to work [] Unable to attend mormonism [] Unable to walk/stand [] Unable to read [] Unable to drive [] Unable to eat/drink [] Unable to sleep [] Unable to be with family [] Patient intubated [] Other: Z Summary 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 prayed With patient and 1 staff. Time spent with patient 7 minutes.
--- NOTE | 2021-07-13 11:44 | PM.DCS ---
Discharge Providers Date of Admission: 07/12/21 15:12 Date of Discharge: July 13, 2021 Attending Provider at Admission: Asya Giron MD Attending Provider at Discharge: Asya Giron MD Primary Care Provider: Hamilton Lovett Diagnoses at Discharge Discharge Diagnosis (1) Generalized weakness: Status: Acute Reason for Visit Reason for Visit: WEAKNESS/ WHEEZING Hospital Course Hospital Course 76-year-old male who was admitted for evaluation of his recent fall at home. Patient is stating that he try to get up from his chair when he landed on the ground. He attributed this event to his legs giving up on him. He was not able to get up and that is why his called the EMS. However by the time he was evaluated in the ER his symptoms resolved there was no leg weakness there were no strokelike symptoms. He was back to his baseline walking in the ER. Overnight his telemetry did not show any malignant arrhythmia, sinus rhythm no QTC prolongation, TSH, prolactin, normal. PT recommended home exercise program. No severe electrolyte imbalance. 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 Patient will be discharged on 07/13 without change in his medications. Home exercise program recommended. Patient never had any syncopal event, chest pain, shortness of breath. His BNP is high however he was not tachycardic or fluid overloaded, he was not requiring oxygen. Chest x-ray unremarkable. Physical Exam Narrative: EXAM NARRATIVE: male, very pleasant and cooperative S1, S2 Systolic murmur appreciated right second intercostal space Abdomen soft Saturating well on room air EOMI, PERRLA Nonfocal neuro exam Discharge Data Data Completed and Pending: Completed Studies During Hospitalization Category Date Time Status XR chest 1V marya ble [id number] Urgent Exams 07/12/21 11:05 Completed Pending at discharge Category Date Time Status CV. echo complete * [id number] Routine Ultrasound 07/13/21 19:38 Ordered Labs from last 24 hours 07/13/21 07/13/21 07/13/21 05:16 05:16 05:16 WBC 5.1 RBC 3.23 L Hgb 10.5 L Hct 30.9 L MCV 95.7 H MCH 32.5 MCHC 34.0 RDW 14.6 Plt Count 129 L MPV 11.5 H Neut % (Auto) 77.6 Lymph % (Auto) 10.2 Smyth % (Auto) 11.4 Eos % (Auto) 0.0 Baso % (Auto) 0.0 Neut # (Auto) 3.94 Lymph # (Auto) 0.5 L Smyth # (Auto) 0.6 Eos # (Auto) 0.0 Baso # (Auto) 0.0 Nucleated RBC % (a uto) 0 Nucleated RBCs # 0.0 D-Dimer Sodium 135 L Potassium 4.9 Chloride 100 Carbon Dioxide 20 L Anion Gap 19.9 H BUN 23 Creatinine 1.1 GFR Calculation Not Reportable Glucose 282 H Estimat Average Gl ucose Hemoglobin A1c Calculated Osmolal ity 294 Calcium 8.5 Magnesium 2.1 Total Bilirubin 0.7 AST 32 ALT 18 Alkaline Phosphata se 83 Troponin T Baselin e Troponin T 120 Min southern ute Delta Troponin T Troponin T Hi Sens 6Hr Troponin T Hi Sens 6Hr Delta C-Reactive Protein 92.0 H NT-Pro-B Natriuret Pep Total Protein 6.4 L Albumin 4.1 Globulin 2.3 Vitamin B12 Procalcitonin TSH 07/12/21 07/12/21 07/12/21 17:49 13:15 13:15 WBC RBC Hgb Hct MCV MCH MCHC RDW Plt Count MPV Neut % (Auto) Lymph % (Auto) Smyth % (Auto) Eos % (Auto) Baso % (Auto) Neut # (Auto) Lymph # (Auto) Smyth # (Auto) Eos # (Auto) Baso # (Auto) Nucleated RBC % (a uto) Nucleated RBCs # D-Dimer Sodium Potassium Chloride Carbon Dioxide Anion Gap BUN Creatinine GFR Calculation Glucose Estimat Average Gl ucose Hemoglobin A1c Calculated Osmolal ity Calcium Magnesium Total Bilirubin AST ALT Alkaline Phosphata se Troponin T Baselin e Troponin T 120 Min southern [place] Delta Troponin T Troponin T Hi Sens 6Hr 14.62 Troponin T Hi Sens 6Hr Delta -0.38 L C-Reactive Protein NT-Pro-B Natriuret Pep Total Protein Albumin Globulin Vitamin B12 607 Procalcitonin 0.10 TSH 1.00 07/12/21 07/12/21 07/12/21 13:15 11:30 11:30 WBC RBC Hgb Hct MCV MCH MCHC RDW Plt Count MPV Neut % (Auto) Lymph % (Auto) Smyth % (Auto) Eos % (Auto) Baso % (Auto) Neut # (Auto) Lymph # (Auto) Smyth # (Auto) Eos # (Auto) Baso # (Auto) Nucleated RBC % (a uto) Nucleated RBCs # D-Dimer 0.40 Sodium Potassium Chloride Carbon Dioxide Anion Gap BUN Creatinine GFR Calculation Glucose Estimat Average Gl ucose 163 Hemoglobin A1c 7.3 H Calculated Osmolal ity Calcium Magnesium Total Bilirubin AST ALT Alkaline Phosphata se Troponin T Baselin e Troponin T 120 Min southern ute 15.79 H Delta Troponin T 0.79 Troponin T Hi Sens 6Hr Troponin T Hi Sens 6Hr Delta C-Reactive Protein NT-Pro-B Natriuret Pep Total Protein Albumin Globulin Vitamin B12 Procalcitonin TSH 07/12/21 07/12/21 07/12/21 11:30 11:30 11:30 WBC 8.2 RBC 3.89 L Hgb 12.5 Hct 37.5 L MCV 96.4 H MCH 32.1 MCHC 33.3 RDW 14.8 Plt Count 152 MPV 12.0 H Neut % (Auto) 71.0 Lymph % (Auto) 10.6 Smyth % (Auto) 15.9 Eos % (Auto) 0.1 Baso % (Auto) 0.1 Neut # (Auto) 5.82 Lymph # (Auto) 0.9 Smyth # (Auto) 1.3 H Eos # (Auto) 0.0 Baso # (Auto) 0.0 Nucleated RBC % (a uto) 0 Nucleated RBCs # 0.0 D-Dimer Sodium 140 Potassium 4.9 Chloride 102 Carbon Dioxide 18 L Anion Gap 24.9 H BUN 19 Creatinine 1.1 GFR Calculation Not Reportable Glucose 215 H Estimat Average Gl ucose Hemoglobin A1c Calculated Osmolal ity 299 H Calcium 8.7 Magnesium Total Bilirubin AST ALT Alkaline Phosphata se Troponin T Baselin e 15 Troponin T 120 Min [place] Troponin T Troponin T Hi Sens 6Hr Troponin T Hi Sens 6Hr Delta C-Reactive Protein NT-Pro-B Natriuret Pep 1223 H Total Protein Albumin Globulin Vitamin B12 Procalcitonin TSH Vitals: Last Vital Signs Temp 98.3 F 07/13/21 07:00 Pulse 93 07/13/21 07:00 Resp 18 07/13/21 07:00 BP 127/71 07/13/21 07:00 Pulse Ox 97 07/13/21 07:00 Discharge Plan Discharge Patient Disposition: Home Condition: Stable Prescriptions: Continued multivitamin Tablet 1 tab PO DAILY RF: 0 metoprolol tartrate 100 mg Tablet 50 mg PO BID RF: 0 omeprazole 40 mg Capsule,Delayed Release(Dr/Ec) 40 mg PO BID RF: 0 metformin 1,000 mg Tablet 1,000 mg PO BID RF: 0 lisinopril 10 mg Tablet 5 mg PO DAILY RF: 0 docusate sodium 100 mg Capsule 200 mg PO BEDTIME RF: 0 Lasix 20 mg Tablet 20 mg PO DAILY RF: 0 albuterol sulfate 90 mcg/actuation Hfa Aerosol Inhaler 2 puff INHALATION QID PRN (Reason: Shortness Of Breath) RF: 0 glipizide 5 mg Tablet 5 mg PO BID RF: 0 ipratropium bromide 17 mcg/actuation Hfa Aerosol Inhaler 1 puff INHALATION QID RF: 0 ferrous gluconate 324 mg (36 mg iron) Tablet 324 mg PO BID RF: 0 Eliquis 5 mg Tablet 5 mg PO BID RF: 0 potassium chloride 20 mEq Tablet Extended Release 10 meq PO DAILY RF: 0 atorvastatin 80 mg Tablet 40 mg PO DAILY RF: 0 Vitamin D3 25 mcg (1,000 unit) Capsule 25 mcg PO DAILY RF: 0 Lantus Solostar U-100 Insulin 100 unit/mL (3 mL) Insulin Pen 15 unit SUBCUT BID RF: 0 Discharge Orders: Discharge Order (Routine); Ordered 07/13/21 Ordered By: Asya Giron Discharge Diet: Diabetic Discharge Activity: Increase activity as tolerated Patient Instructions: Opioid Safety, Weakness (Generalized) Discharge Attestations Time Spent in Discharge Care*: less than 30 min Quality Metrics Clinical Quality Measures During this hospital stay, did patient experience: None Coding Level of Care Code Acute [facility] note Diagnoses Generalized weakness R53.1
--- NOTE | 2021-07-13 19:38 | USCV_ITS ---
Maria Fernanda Anuj Age: 76 Gender: M : 1945 Exam Date: 07/13/2021 11:17 Ordering Phys: Asya Giron MD Technologist: KATIA Exam Location: [facility] [place] Indication: NEWBY BP: 145 / 74 HR: 94 Rhythm: Sinus Technical Quality: Technically difficult study MEASUREMENTS (Male / Female) Normal Values 2D ECHO LV Diastolic Diameter PLAX 5.3 cm 4.2 - 5.9 / 3.9 - 5.3 cm LV Systolic Diameter PLAX 4.8 cm IVS Diastolic Thickness 1.0 cm 0.6 - 1.0 / 0.6 - 0.9 cm IVS Systolic Thickness 1.2 cm LVPW Diastolic Thickness 0.8 cm 0.6 - 1.0 / 0.6 - 0.9 cm LVPW Systolic Thickness 0.9 cm RV Chamber Size 2.7 cm LVOT Diameter 1.9 cm LV Ejection Fraction 2D Teich 20.9 % LA Diameter 4.0 cm LA Width 3.6 cm LA Height 5.4 cm RA Width 3.2 cm RA Height 4.9 cm Aorta at Sinotubular Diameter 2.1 cm M-MODE LV Diastolic Diameter MM 5.5 cm 4.2 - 5.9 / 3.9 - 5.3 cm LV Systolic Diameter MM 4.8 cm LV Ejection Fraction MM Teich 26.3 % IVS Diastolic Thickness MM 0.9 cm 0.6 - 1.0 / 0.6 - 0.9 cm IVS Systolic Thickness MM 1.1 cm LVPW Diastolic Thickness MM 1.2 cm 0.6 - 1.0 / 0.6 - 0.9 cm LVPW Systolic Thickness MM 1.3 cm RV Diastolic Diameter MM 1.4 cm Aortic Annulus Diameter 3.3 cm LA Ao Ratio MM 1.5 MV E Point Septal Separation 1.5 cm DOPPLER AV Peak Velocity 162.0 cm/s LVOT Peak Velocity 86.0 cm/s AV Area Cont Eq vti 1.3 cm squared AV Area Cont Eq pk 1.5 cm squared MV Peak Velocity 172.0 cm/s MV Area PHT 3.1 cm squared Mitral E to A Ratio 1.6 MV E' Velocity 88.5 cm/s Mitral E to MV E' Ratio 29.9 Mitral E to LV E' Lateral Ratio 26.2 Mitral E to LV E' Septal Ratio 35.5 TR Peak Velocity 157.0 cm/s TR Peak Gradient 9.9 mmHg TV Peak E Velocity 69.0 cm/s Right Atrial Pressure 3.0 mmHg Pulmonary Artery Systolic Pressu 12.9 mmHg RV Acceleration Time 0.1 s RV Ejection Time 0.3 s RV AcT/ET 0.4 FINDINGS Left Ventricle Moderately increased left ventricular cavity size. Severely decreased left ventricular systolic function. Left ventricular ejection fraction is estimated at 35 %. Mid to distal anterior and apical dyskinesis. Right Ventricle The right ventricle is normal in size and function. Right Atrium The right atrium is normal in size. Left Atrium The left atrium is normal in size. Mitral Valve Severely thickened mitral valve. Severe mitral annular calcification. No mitral valve stenosis. Mild mitral valve regurgitation. Aortic Valve Severe aortic valve calcification. Moderate aortic valve stenosis, mean gradient 6 mmHg, YEHUDA 1.3 cm squared. Mild aortic valve regurgitation. Tricuspid Valve Structurally normal tricuspid valve without significant stenosis or regurgitation. Pulmonary artery systolic pressure is normal. Pulmonic Valve Structurally normal pulmonic valve without significant stenosis. There is no pulmonic regurgitation. Pericardium Normal pericardium without effusion. Aorta Normal ascending aorta dimension. CONCLUSIONS 1-Moderately increased left ventricular cavity size. Severely decreased left ventricular systolic function. Left ventricular ejection fraction is estimated at 35 %. Mid to distal anterior and apical dyskinesis. 2-Severely thickened mitral valve. Severe mitral annular calcification. No mitral valve stenosis. Mild mitral valve regurgitation. 3-Severe aortic valve calcification. Moderate aortic valve stenosis, mean gradient 6 mmHg, YEHUDA 1.3 cm squared. Mild aortic valve regurgitation. 4-There is no pericardial effusion. 5-Pulmonary artery systolic pressure is within normal limits. 6-When compared to the prior echocardiogram dated March 30, 2018 there is worsening of aortic stenosis to moderate category with aortic valve area of 1.3 cm squared. Asya Granda MD (Electronically Signed) Final Date: 13 July 2021 19:43 S
== END 2021-07-13 16:25 | disposition home or self-care (01) ==
LOC: ER 18:07 → MEDSURG 19:05
PROVIDERS: Admitting Provider Internal Medicine; Emergency Provider Emergency Medicine; PCP Family Medicine; Visit Provider Internal Medicine
DX: R53.1 Weakness (principal); J44.9 Chronic obstructive pulmonary disease, unspecified; I25.10 Atherosclerotic heart disease of native coronary artery without angina pectoris; E11.9 Type 2 diabetes mellitus without complications; I10 Essential (primary) hypertension; Z95.1 Presence of aortocoronary bypass graft; F17.210 Nicotine dependence, cigarettes, uncomplicated
CPT/HCPCS: 36415; 71045; 80048; 80053; 82607; 83036; 83735; 83880; 84145; 84443; 84484; 85025; 85378; 86140; 93005; 93306; 94640; 96372; 97161; 99285; G0378; J1815 ×2; J2930

== ENCOUNTER 2021-08-18 07:41 | Outpatient (CLI) | payer SELFPAY ==
[2021-08-18 07:47] VITALS: BP 134/72; PULSE 94; RESP 18; TEMP 36.6; O2SAT 98; BMI 25.5
[2021-08-18 08:41] VITALS: BP 125/62; PULSE 91; RESP 17; TEMP 36.6; O2SAT 98
[2021-08-18 09:41] VITALS: BP 130/76; PULSE 92; RESP 18; TEMP 36.4; O2SAT 97
== END 2021-08-18 07:42 | disposition home or self-care (01) ==
LOC: OPS 07:44
PROVIDERS: PCP Family Medicine; Visit Provider Emergency Medicine Emergency Medical Services
DX: U07.1 COVID-19 (principal)
CPT/HCPCS: 96365

== ENCOUNTER 2021-08-26 14:05 | Outpatient (CLI) | payer OTHER, SELFPAY ==
--- NOTE | 2021-08-26 14:35 | CT_ITS ---
WS: [id number] CT HEAD NONCONTRAST HISTORY: HEADACHES X 1 MONTH W/INCREASED WEAKNESS/SYNCOPAL EPISODE TECHNIQUE: Contiguous axial imaging performed through the brain in 2.5 mm imaging. Bone and soft tiss ue windows. Sagittal and coronal reformats reviewed. All CT scans at [facility] use at least one of these dose optimization techniques: automated exposure control; mA and/or kV adjustment per pa tient size (includes targeted exams where dose is matched to clinical indication); or iterative recon struction. DLP: 1076.98 mGy.cm COMPARISON: 10/18/2017 No acute intracranial hemorrhage, midline shift or mass effect. Mild atrophy and moderate low-attenuation in the periventricular white matter from chronic ischemic d isease. No focal area of sulcal effacement. Only mild progression since 2018 of the chronic ischemic type changes. Ventricles: Normal size with no hydrocephalus. No inferior displacement of the cerebellar tonsils. Paranasal sinuses: As visualized are clear. Mastoid air cells: Well pneumatized. Calvarium and scalp: Skull is intact with no soft tissue edema or swelling. Moderate atherosclerotic plaque within the intracranial carotid arteries. CT/CT head wo con* [id number] IMPRESSION: 1. No acute intracranial hemorrhage or edema. 2. Moderate small vessel ischemic disease. No significant progression since e prior study. 3. Moderate calcification in the intracranial carotid arteries.
== END 2021-08-26 14:06 | disposition home or self-care (01) ==
LOC: RAD 14:21
PROVIDERS: PCP Family Medicine; Visit Provider Family Medicine
DX: R51.9 Headache, unspecified (principal); I65.23 Occlusion and stenosis of bilateral carotid arteries
CPT/HCPCS: 70450

== ENCOUNTER 2021-09-13 19:49 | Inpatient (IN) | payer OTHER, MEDICARE, SELFPAY ==
[2021-09-13] VITALS (7 sets, daily range): BP systolic 113–162; BP diastolic 43–72; PULSE 50–96; RESP 17–44; TEMP 36.7; O2SAT 87–100; BMI 27.7
--- NOTE | 2021-09-13 20:00 | PC.NURSE ---
PATIENT PLACED ON CONTINUOUS BEDSIDE CARDIAC, BP AND O2 MONITOR.
--- NOTE | 2021-09-13 20:27 | XRR_ITS ---
PROCEDURE INFORMATION: Exam: XR Chest Exam date and time: 09/13/2021 8:27 PM Age: 76 years old Clinical indication: Dyspnea; Additional info: SOB TECHNIQUE: Imaging protocol: XR of the chest. Views: 1 view. COMPARISON: CR XR chest 1V portable [id number] 07/12/2021 11:58 AM FINDINGS: Lungs: There is mild indistinctness of the pulmonary vasculature and some increased linear opacities present in the mid lower hemithoraces, findings could represent mild pulmonary edema. Pleural spaces: Unremarkable. No pleural effusion. No pneumothorax. Heart/Mediastinum: Mitral valve annulus is present. Bones/joints: Status post median sternotomy. XR/XR chest 1V portable [id number] IMPRESSION: Mild indistinctness of the pulmonary vasculature and increased linear opacities in the mid lower hemithoraces could represent mild pulmonary edema.
--- NOTE | 2021-09-13 20:29 | ED_ITS ---
HPI - SOB/Dyspnea General: Chief Complaint: Shortness of Breath/Dyspnea Stated Complaint: weakness Time Seen by Provider: 09/13/21 20:05 Source: patient Mode of arrival: ambulatory History of Present Illness: HPI Narrative: This patient presents to our emergency department because of increasing shortness of breath throughout the day. He has a longstanding history of COPD but does not wear oxygen at home. He does have a history of coronary disease had a bypass in 2009 but denies any chest pain. He states that he has felt more fatigued over the past couple of days and worsened this afternoon with d ifficulty breathing that did not respond to his metered-dose inhaler. He denies any fevers or chills. He denies any cough. He lives with his both his and his daughter who are both immunized against COVID-19 as is this patient. States has been eating and drinking normally. He denies any leg edema, increasing weight etc. He had a recent surgical procedure on his left eye for what sounds like a blepharoplasty or other surgical correction of lid dysfunction. MD elicited complaint: shortness of breath Pertinent past history: COPD Timing: intermittent and progressively worsening Severity: moderate Exacerbating factors: exertion Relieving factors: oxygen Known history of: COPD Associated symptoms: Deny abdominal pain, chest congestion, chest pain, cough, extremity pain, fever(s), nausea, palpitations, polydipsia, polyuria, syncope or vomiting Treatment prior to arrival: bronchodilator Review of Systems Const: Reports: fatigue; Denies: fever(s) or chills Eyes: Reports: eye redness; Denies: change in vision ENMT: Denies: throat pain, odynophagia or mouth pain Card: Denies: chest pain, palpitations or syncope Resp: Reports: dyspnea and wheezing; Denies: chest congestion GI: Denies: abdominal pain, nausea, vomiting or diarrhea : Denies: flank pain, difficulty urinating or dysuria Musc: Denies: neck pain, extremity pain, extremity swelling or joint swelling Skin/Breast: Denies: rash or skin swelling Psych: Denies: anxiety or depression Endo: Denies: polyuria or polydipsia Marvel/Lymph: Denies: easy bruising or easy bleeding PFS ED PFSH: Medical History COPD (chronic obstructive pulmonary disease) Coronary artery disease Diabetes mellitus HTN (hypertension) Surgical History 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 Family History Denies family history of Diabetes Clotting disorder Dementia Social History Smoking and tobacco status: current every day smoker Alcohol intake: never Household members: spouse Housing: House Physical Exam Narrative: EXAM NARRATIVE: Patient makes good eye contact. He answers questions in a goal-directed fashion. Does have some audible wheezing at the end of sentences but is able to complete 4-5 word sentences. Const: COMMON NORMALS: no acute distress, patient oriented x3 and alert HENMT: COMMON NORMALS: normocephalic, atraumatic, external ears normal, moist oral mucous membranes and oropharynx normal HEAD & SCALP: normocephalic and atraumatic FACE & SINUS: sinuses nontender EXTERNAL EAR: Yes external ears normal Eye: COMMON NORMALS: Equal, round and reactive pupils present, EOMs intact bilaterally and conjunctivae normal (Left conjunctiva is injected. He has some erythema to the lid margins both) EYELID: eyelid abnormality (Erythema of the left eye and surrounding skin) CONJUNCTIVA: Yes conjunctivae normal (Left conjunctiva is injected. He has some erythema to the lid margins both) PUPIL: Yes Equal, round and reactive pupils present Neck/C-Spine: COMMON NORMALS: full ROM, no lymphadenopathy, no JVD and No carotid bruits GENERAL: Yes tender CERVICAL SPINE: Yes cervical ROM normal Chest: COMMONS NORMALS: normal inspection of the chest (Median sternotomy scar noted) Resp: EFFORT & INSPECTION: Yes symmetric chest movement and Yes pursed lip breathing AUSCULTATION: wheezes Cardio: COMMON NORMALS: no JVD, regular rate, No murmurs present (Cardio) and Peripheral pulses 2+ throughout RATE: regular rate PERIPHERAL PULSES: Peripheral pulses 2+ throughout GI: COMMON NORMALS: Normal to inspection, nondistended, normoactive bowel sounds present, Soft to palpation and non-tender PALPATION: Yes Soft to palpation : COMMON NORMALS: Yes no CVA tenderness BLADDER/KIDNEY EXAM: Yes no CVA tenderness Back/Pelvis: COMMON NORMALS: no CVA tenderness, thoracic and lumbar spine normal to inspection, no thoracic nor lumbar tenderness, thoraco-lumbar ROM normal and straight leg raise negative bilaterally Extremity: COMMON NORMALS: normal to inspection, full ROM and capillary refill normal Neuro: COMMON NORMALS: patient oriented x3, moves all extremities, no focal motor deficits and no sensory deficits noted SENSORIUM/ORIENTATION: Yes alert Course Consultations: Consultation #1: I discussed case with on-call overnight hospitalist and reviewed his current findings. She agreed to the admission. Time: 22:31 Vital Signs: Vital signs: Vital Signs Temperature 98.0 F 09/13/21 19:55 Pulse Rate 96 09/13/21 21:36 Respiratory Rate 24 H 09/13/21 21:36 Blood Pressure 133/67 09/13/21 21:36 Pulse Oximetry 95 09/13/21 21:36 MDM - SOB/Dyspnea Medical Decision Making Patient's some improved after DuoNeb as well as Solu-Medrol. I think he has a component of heart failure as well that I think probably needs to be more completely evaluated regarding his dyspnea. He is displaying some irregularity to his heart rhythm throughout his emergency department stay and I think probably he has an underlying atrial fibrillation. He does take Eliquis and I suspect that is the reason for that medication. Medical Records I reviewed the patient's medical records. Lab Data I reviewed the patient's lab results. : 09/13/21 20:41 09/13/21 20:41 Labs/Radiology: Radiology Impressions Chest X-Ray 09/13/21 20:27 IMPRESSION: Mild indistinctness of the pulmonary vasculature and increased linear opacities in the mid lower hemithoraces could represent mild pulmonary edema. Laboratory Results WBC 13.3 10^3/uL (4.0-10.0) H 09/13/21 20:41 RBC 3.40 10^6/uL (4.1-5.3) L 09/13/21 20:41 Hgb 10.7 g/dL (11.7-16.6) L 09/13/21 20:41 Hct 33.8 % (42.0-52.0) L 09/13/21 20:41 MCV 99.4 fl (80-94) H 09/13/21 20:41 MCH 31.5 pg (28.0-34.0) 09/13/21 20:41 MCHC 31.7 g/dL (30.0-36.0) 09/13/21 20:41 RDW 13.7 % (12.1-15.1) 09/13/21 20:41 Plt Count 177 10^3/cmm (130-400) 09/13/21 20:41 MPV 11.2 fL (7.4-10.4) H 09/13/21 20:41 Neut % (Auto) 74.6 % 09/13/21 20:41 Lymph % (Auto) 8.5 % 09/13/21 20:41 Dunn % (Auto) 14.5 % 09/13/21 20:41 Eos % (Auto) 0.1 % 09/13/21 20:41 Baso % (Auto) 0.1 % 09/13/21 20:41 Neut # (Auto) 9.95 10^3/uL (1.8-7.7) H 09/13/21 20:41 Lymph # (Auto) 1.1 10^3/uL (0.8-4.8) 09/13/21 20:41 Dunn # (Auto) 1.9 10^3/uL (0.2-0.9) H 09/13/21 20:41 Eos # (Auto) 0.0 10^3/uL (0.0-0.8) 09/13/21 20:41 Baso # (Auto) 0.0 10^3/uL (0.0-0.1) 09/13/21 20:41 Nucleated RBC % (auto) 0 % 09/13/21 20:41 Nucleated RBCs # 0.0 /100WBC 09/13/21 20:41 Sodium 130 mmol/L (136-145) L 09/13/21 20:41 Potassium 5.5 mmol/L (3.5-5.1) H 09/13/21 20:41 Chloride 97 mmol/L (98-107) L 09/13/21 20:41 Carbon Dioxide 21 mmol/L (22-29) L 09/13/21 20:41 Anion Gap 17.5 (5-19) 09/13/21 20:41 BUN 22 mg/dL (8-23) 09/13/21 20:41 Creatinine 1.3 mg/dL (0.7-1.2) H 09/13/21 20:41 GFR Calculation Not Reportable 09/13/21 20:41 Glucose 268 mg/dL (65-115) H 09/13/21 20:41 Calculated Osmolality 287 mOsm/kg (285-295) 09/13/21 20:41 Calcium 9.3 mg/dL (8.5-10.5) 09/13/21 20:41 Total Bilirubin 0.9 mg/dL (0.15-1.2) 09/13/21 20:41 AST 21 U/L (0-40) 09/13/21 20:41 ALT 19 U/L (0-41) 09/13/21 20:41 Alkaline Phosphatase 106 IU/L (40-130) 09/13/21 20:41 Troponin T Gen 5 ng/L 19 ng/L (0-15) H 09/13/21 20:41 NT-Pro-B Natriuret Pep 3195 pg/mL (0-450) H 09/13/21 20:41 Total Protein 7.3 g/dL (6.6-8.7) 09/13/21 20:41 Albumin 4.6 g/dL (3.5-5.2) 09/13/21 20:41 Globulin 2.7 g/dL (1.3-4.6) 09/13/21 20:41 EKG Data EKG 1: Interpretation: EKG reveals baseline irritability. Appears to be a sinus rhythm. Has somewhat of an indeterminate MT interval however. He has a normal axis. Normal intervals. No evidence of ST-T wave changes at this time. Compared with prior tracings available within the system and there is no interval change. Discharge Plan Discharge Patient Disposition: Admitted As Inpatient Clinical Impression: COPD (chronic obstructive pulmonary disease), Congestive heart failure, Atrial fibrillation Condition: Stable Coding Level of Care Code ED Dialysis Equipment Technician for Chg Fwd Exam Comprehensive
--- NOTE | 2021-09-13 20:40 | ECG_ITS ---
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 Measurements Intervals [place] Rate: 95 P: [place]: QRS: 65 QRSD: 93 T: 73 QT: 338 QTc: 427 Interpretive Statements SUPRAVENTRICULAR RHYTHM LOW QRS VOLTAGE [QRS DEFLECTION < 0.5/1.0 mV IN LIMB/CHEST LEADS] ANTEROSEPTAL MYOCARDIAL INFARCTION , OF INDETERMINATE AGE [40+ ms Q WAVE IN V1-V4] Compared to ECG 07/12/2021 14:22:15 Supraventricular rhythm now present Low QRS voltage now present Sinus rhythm no longer present T-wave abnormality no longer present Possible ischemia no longer present Myocardial infarct finding still present Electronically Signed On 09-15-2021 12:18:24 MENTALLY RETARDED TEACHER by Tito Hernandez M.D. [email or web address]/store/NU/[id number] f
[2021-09-13] MEDS: ondansetron 2 mg/ML SDV 2 mL 4 MG IVP (20:50)
[2021-09-13 20:51] LABS: Basophils % 0.1 %; Eosinophils % 0.1 %; Hematocrit 33.8 % (42.0-52.0); Hemoglobin 10.7 g/dL (11.7-16.6); Lymphocytes # 1.1 10^3/uL (0.8-4.8); Lymphocytes % 8.5 %; Mean Corpuscular HGB Conc 31.7 g/dL (30.0-36.0); Mean Corpuscular Hemoglobin 31.5 pg (28.0-34.0); Mean Corpuscular Volume 99.4 fl (80-94); Mean Platelet Volume 11.2 fL (7.4-10.4); Monocytes # 1.9 10^3/uL (0.2-0.9); Monocytes % 14.5 %; Neutrophils # 9.95 10^3/uL (1.8-7.7); Neutrophils % 74.6 %; Nucleated Red Blood Cells % 0 %; Platelet Count 177 10^3/cmm (130-400); Red Cell Distribution Width 13.7 % (12.1-15.1); White Blood Count 13.3 10^3/uL (4.0-10.0)
--- NOTE | 2021-09-13 20:58 | PC.NURSE ---
PT HAVING LONG PAUSES IN HIS HEART RATE AND RHYTHM. MADE AWARE. EKG REDONE
[2021-09-13] MEDS: ipratropium-albuterol 3 mL Neb INHALATION (21:07)
[2021-09-13 21:09] LABS: Troponin T (5th) Once 19 ng/L (0-15)
[2021-09-13 21:18] LABS: Alanine Aminotransferase 19 U/L (0-41); Albumin Level 4.6 g/dL (3.5-5.2); Alkaline Phosphatase 106 IU/L (40-130); Aspartate Amino Transferase 21 U/L (0-40); Blood Urea Nitrogen 22 mg/dL (8-23); Calcium 9.3 mg/dL (8.5-10.5); Carbon Dioxide 21 mmol/L (22-29); Chloride 97 mmol/L (98-107); Globulin 2.7 g/dL (1.3-4.6); Glucose 268 mg/dL (65-115); NT Pro B Type Natriuretic Pept 3195 pg/mL (0-450); Osmolality Calculated 287 mOsm/kg (285-295); Potassium 5.5 mmol/L (3.5-5.1); Total Bilirubin 0.9 mg/dL (0.15-1.2); Total Protein 7.3 g/dL (6.6-8.7)
[2021-09-13 21:23] LABS: Anion Gap 17.5 (5-19); Sodium 130 mmol/L (136-145)
[2021-09-13 23:11] LABS: SARS Covid-2 Antigen Negative (Negative)
--- NOTE | 2021-09-13 23:36 | PC.NURSE ---
received report from VANE Mckeon. patient presented with sob. COPD. Is not on home O2. He is currently on 2L O2. has been treated with duoneb and solumedrol. he was found to have irregular heartrate, afib with slow conduction. Has h/o CAD with bipass surgery. His Covid is negative. He is to be admitted.
[2021-09-14] VITALS (16 sets, daily range): BP systolic 113–136; BP diastolic 43–69; PULSE 48–96; RESP 14–29; TEMP 36–36.7; O2SAT 84–98; BMI 26.6
--- NOTE | 2021-09-14 01:40 | PM.HP ---
Providers/Chief Complaint Admitting Physician: Belinda Roche MD Primary Care Provider: Hamilton Lovett Chief Complaint: weakness History of Present Illness Anuj Irving is a 76 year old male with PMH DM, HTN, A fib, presenting today with c/o shortness of breath that started suddenly at 2pm, lasted about 2 hrs. Initially attributed to missing his inhalers yesterday however presented to ER when symptoms did not resolve over 2 hrs. He has a new 02 requirement of 2lpm today. Denies any chest pain, palpitations, syncope. Denies any fever, cough, chills or recent URI symptoms. CXR shows B/L infiltrates which appear concerning for pulmonary edema. Rapid Ag negative, pt has had 2 doses of covid vaccine. baseline trop at 19. EKG pending. Last echo 07/15 Left ventricular ejection fraction is estimated at 35 %.? Mid to distal anterior?and apical dyskinesis, severely thickened MR,moderate . HE has a noticebale left red eye which appears to have bacterial conjunctivitis with thick pus like discharge and crusting over eyelashes. He is 1 week post cataract surgery. States that an abx ointment has been prescribed, however has not [facility] delivered [facility]. He has been using lip balm and neosporin skin ointment in his left eye with overall worsening. Review of Systems General: Reports: 10 or more systems reviewed and unremarkable except in HPI and below Const: Denies: fever(s), chills or body aches Eyes: Denies: change in vision, blurry vision or photophobia ENMT: Reports: hoarseness; Denies: throat pain, enlarged tonsils, odynophagia or nasal congestion Card: Denies: chest pain, palpitations, irregular heart rhythm, edema, swelling of feet/ankles, lightheadedness, pre-syncope, dyspnea on exertion or orthopnea Resp: Denies: dyspnea, productive cough, non-productive cough, wheezing, stridor, pain on inspiration, change in phlegm color, hemoptysis or chest congestion GI: Denies: abdominal pain, nausea, vomiting, hematemesis, coffee ground emesis, dysphagia, heartburn, diarrhea, constipation, GI cramping, change in stool character, hematochezia or melena : Denies: flank pain, dysuria, urinary frequency, urinary urgency, urinary hesitancy or hematuria Musc: Denies: neck pain, back pain, extremity pain, joint swelling, joint warmth or deformity Neuro: Denies: headache(s), numbness in extremities, weakness in extremities, sensory changes, difficulty walking, frequent falls, dizziness, vertigo, behavioral changes, Slurred speech present or seizure-like activity Psych: Denies: anxiety, depression, suicidal ideation or homicidal ideation Endo: Denies: polyuria, polydipsia, tired all the time, cold intolerance or hot flashes Marvel/Lymph: Denies: easy bruising or easy bleeding Medications/Allergies Home Medications Medication Instructions Recorded Confirmed Last Taken Type albuterol sulfate 90 mcg/actuation 2 puff INHALATION QID PRN 07/12/21 07/12/21 Unknown History aerosol inhaler apixaban 5 mg tablet (Eliquis) 5 mg PO BID 07/12/21 08/18/21 08/18/21 06:00 History atorvastatin 80 mg tablet 40 mg PO BID 07/12/21 08/18/21 08/18/21 06:00 History cholecalciferol (vitamin D3) 25 25 mcg PO DAILY 07/12/21 08/18/21 08/18/21 06:00 History mcg (1,000 unit) capsule (Vitamin D3) docusate sodium 100 mg capsule 200 mg PO BEDTIME 07/12/21 07/12/21 07/11/21 History ferrous gluconate 324 mg (36 mg 324 mg PO BID 07/12/21 08/18/21 08/18/21 06:00 History iron) tablet furosemide 20 mg tablet (Lasix) 20 mg PO DAILY 07/12/21 08/18/21 08/18/21 06:00 History glipizide 5 mg tablet 5 mg PO BID 07/12/21 08/18/21 08/18/21 06:00 History insulin glargine 100 unit/mL (3 15 unit SUBCUT BID 07/12/21 08/18/21 08/18/21 06:00 History mL) subcutaneous pen (Lantus Solostar U-100 Insulin) ipratropium bromide 17 1 puff INHALATION QID 07/12/21 07/12/21 Unknown History mcg/actuation HFA aerosol inhaler lisinopril 10 mg tablet 5 mg PO DAILY 12/08/18/21 08/18/21 06:00 History metformin 1,000 mg tablet 1,000 mg PO BID 07/12/21 08/18/21 08/18/21 06:00 History metoprolol tartrate 100 mg tablet 50 mg PO BID 07/12/21 08/18/21 08/18/21 06:00 History multivitamin 1 tab PO DAILY 07/12/21 08/18/21 08/18/21 06:00 History omeprazole 40 mg capsule,delayed 40 mg PO BID 07/12/21 08/18/21 08/18/21 06:00 History release potassium chloride 20 mEq 10 meq PO DAILY 07/12/21 08/18/21 08/18/21 06:00 History tablet,extended release Allergies Allergy/AdvReac Type Severity Reaction Status Date / Time No Known Allergies Allergy Verified 09/14/21 00:56 PFSH Acute PFSH: Medical History COPD (chronic obstructive pulmonary disease) Coronary artery disease Diabetes mellitus HTN (hypertension) Surgical History 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 Family History Denies family history of Diabetes Clotting disorder Dementia Social History Smoking and tobacco status: current every day smoker Alcohol intake: never Household members: spouse Housing: House Vitals/I&O/Wt Last Vital Signs Temp 97.4 F L 09/14/21 00:55 Pulse 56 L 09/14/21 00:55 Resp 20 H 09/14/21 00:55 BP 121/52 09/14/21 00:55 Pulse Ox 95 09/14/21 00:55 Weight last 48 hrs Weight 77.111 kg Weight 80.286 kg Physical Exam Narrative: GEN: Awake, alert and oriented, no acute distress HEENT: left eye erythema, congestion, pus like discharge, matting of eyelashes. CVS: S1S2 N RS: B/L scattered rales lung bases. Abd: Soft, nt/nd , bs+ PANTOGRAPH ENGRAVER: no focal neuro deficits Ext: 1+ pitting edema B/L Data : 09/13/21 20:41 09/13/21 20:41 Other data: Ordering Provider/Ordering MD: Jorge L Moore DO Date of Service: 09/13/21 Procedure(s): XR chest 1V portable [id number] Accession Number(s): [id number] Report Number: [id number] PROCEDURE INFORMATION: Exam: XR Chest Exam date and time: 09/13/2021 8:27 PM Age: 76 years old Clinical indication: Dyspnea; Additional info: SOB TECHNIQUE: Imaging protocol: XR of the chest. Views: 1 view. COMPARISON: CR XR chest 1V portable [id number] 07/12/2021 11:58 AM FINDINGS: Lungs: There is mild indistinctness of the pulmonary vasculature and some increased linear opacities present in the mid lower hemithoraces, findings could represent mild pulmonary edema. Pleural spaces: Unremarkable. No pleural effusion. No pneumothorax. Heart/Mediastinum: Mitral valve annulus is present. Bones/joints: Status post median sternotomy. XR/XR chest 1V portable [id number] IMPRESSION: Mild indistinctness of the pulmonary vasculature and increased linear opacities in the mid lower hemithoraces could represent mild pulmonary edema. A&P Assessment and plan (1) Congestive heart failure: CXR with B/L infiltrates c/f pulmonary edema , elevated pro BNP related to acute on chronic systolic HF last known EF 35% 06/2021 baseline trop 19, repeat with am labs, denies chest pain, repeat EKG EKG with a fib, HR well controlled between 50-80 lasix 40mg iv q12h monitor I/O Status: Acute Qualifiers: Heart failure type: systolic Heart failure chronicity: acute on chronic Qualified Code(s): I50.23 - Acute on chronic systolic (congestive) heart failure (2) Atrial fibrillation: currently rate controlled Continue Eliquis 5mg BID Status: Acute (3) Diabetes mellitus: ISS + continue home dose of Lantus Status: Acute (4) COPD (chronic obstructive pulmonary disease): Does not currently appear to be exacerbated Duonebs and budesonide scheduled inhalation Holding off on steroids for now, received 125mg IVP solumedrol x 1 Status: Acute (5) Acute bacterial conjunctivitis of left eye: s/p recent eye surgery, appears to be cataract per description Now with acute red eye and thick pus like discharge moxifloxacin eye drops to left eye , artificial tears No current signs of pre septal or orbital cellulitis Status: Acute Attestations Medical Necessity Statement*: Anticipate >2midnight admission for management of acute on chronic CHF exacerbation, iv diuretics Coding Level of Care Code Acute Dried Fruit Washer for [facility] Fwd Diagnoses Congestive heart failure I50.23 Heart failure type: systolic Heart failure chronicity: acute on chronic Atrial fibrillation I48.91 Diabetes mellitus E11.9 COPD (chronic obstructive pulmonary disease) J44.9 Acute bacterial conjunctivitis of left eye H10.32
--- NOTE | 2021-09-14 01:50 | ECG_ITS ---
[facility] Test Date: 2021-09-14 Pat Name: Anuj Irving Department: Room: 277 Gender: Male Research Group Director: : 1945 Requested By: Belinda Roche Order Number: [id number] Dolly MD: Tito Hernandez M.D. Measurements Intervals [place] Rate: 47 P: -38 SD: 135 QRS: 47 QRSD: 116 T: 80 QT: 535 QTc: 476 Interpretive Statements SINUS BRADYCARDIA ANTERIOR MYOCARDIAL INFARCTION , AGE INDETERMINATE Compared to ECG 07/12/2021 14:22:15 Sinus rhythm no longer present T-wave abnormality no longer present Possible ischemia no longer present Myocardial infarct finding still present Electronically Signed On 09-15-2021 12:15:03 NEEDLE CONTROL CHENILLER by Tito Hernandez M.D. [email or web address] Solutionswest campus of delta regional medical centerPrecyse Technologiesupper valley medical center.[employer]/store/OM/[id number]
[2021-09-14] MEDS: ipratropium-albuterol 3 mL Neb INHALATION ×5 (02:45→19:53)
[2021-09-14 04:39] LABS: Troponin T (5th) Once 21 ng/L (0-15)
[2021-09-14 05:04] LABS: Alanine Aminotransferase 19 U/L (0-41); Albumin Level 4.3 g/dL (3.5-5.2); Alkaline Phosphatase 85 IU/L (40-130); Anion Gap 20.2 (5-19); Aspartate Amino Transferase 21 U/L (0-40); Blood Urea Nitrogen 32 mg/dL (8-23); Calcium 8.8 mg/dL (8.5-10.5); Carbon Dioxide 20 mmol/L (22-29); Chloride 98 mmol/L (98-107); Globulin 2.2 g/dL (1.3-4.6); Glucose 311 mg/dL (65-115); Magnesium 1.9 mg/dL (1.7-2.3); Osmolality Calculated 295 mOsm/kg (285-295); Potassium 5.2 mmol/L (3.5-5.1); Sodium 133 mmol/L (136-145); Total Protein 6.5 g/dL (6.6-8.7)
[2021-09-14] MEDS: FUROsemide 10 mg/mL SDV 4mL 40 MG IVP (06:06)
[2021-09-14] MEDS: artificial tears Op Soln 15 mL Btl 1 DROP EYE-LEFT ×5 (06:06→20:02)
--- NOTE | 2021-09-14 06:34 | ECG_ITS ---
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 Measurements Intervals [place] Rate: 84 P: 60 [place]: 169 QRS: 41 QRSD: 124 T: 91 QT: 412 QTc: 490 Interpretive Statements SINUS RHYTHM POSSIBLE ANTERIOR MYOCARDIAL INFARCTION , OF INDETERMINATE AGE [30 ms Q WAVE IN V3/V4, OR R < 0.2 mV IN V4] Compared to ECG 09/14/2021 03:09:56 Sinus bradycardia no longer present Myocardial infarct finding still present Electronically Signed On 09-15-2021 12:14:26 COMMERCIAL REPORTER by Tito Hernandez M.D. [email or web address] [place] [employer].[facility].[employer]/store/OM/[id number]
[2021-09-14 06:49] LABS: Glucose Point of Care 350 mg/dL (70-110)
[2021-09-14] MEDS: budesonide 0.5 mg/2 mL Neb INHALATION ×2 (07:54→19:53)
[2021-09-14] MEDS: insulin lispro 100 unit/1 mL SUBCUT ×4 (08:05→20:51)
[2021-09-14] MEDS: atorvastatin 40 mg Tablet PO ×2 (08:06→17:21)
[2021-09-14] MEDS: apixaban 5 mg Tablet PO ×2 (08:06→17:21)
[2021-09-14] MEDS: insulin glargine 100 units/1 mL 15 UNIT SUBCUT ×2 (08:07→17:22)
[2021-09-14] MEDS: pantoprazole DR 40 mg Tablet PO ×2 (08:07→17:21)
--- NOTE | 2021-09-14 08:28 | USR_ITS ---
PROCEDURE INFORMATION: Exam: US Retroperitoneal; Complete; Kidneys and Bladder Exam date and time: 09/14/2021 8:28 AM Age: 76 years old Clinical indication: Other: Vidal per blood work; Patient HX: PT has had cabg TECHNIQUE: Imaging protocol: Real-time ultrasound of the retroperitoneum with image documentation. Complete exam focused on the kidneys and bladder. COMPARISON: No relevant prior studies available. FINDINGS: Right kidney: Right renal 22 mm benign cyst. The right kidney measures 10.0 x 5.2 x 5.5 cm. The renal cortex measures 0.4 cm. A brief color Doppler examination of the right kidney was performed showing normal color shifts. Left kidney: The left kidney measures 10.6 x 6.1 x 4.6 cm. The renal cortex measures 1.6 cm. Unremarkable. A brief color Doppler examination of the left kidney was performed showing normal color shifts. Aorta: The proximal abdominal aorta measures 1.3 cm. Infrarenal abdominal aortic aneurysm is present measuring 3.2 cm AP dimension. There is no evidence of rupture or leakage. Urinary bladder: The urinary bladder is imaged in the sagittal and transverse planes, and is partially decompressed but otherwise unremarkable. The wall thickness appears unremarkable. The prevoid volume is estimated to be 572 mL. The post voiding volume is estimated to be 252 mL. US/US renal BI with PV bladder IMPRESSION: 1. Right renal benign cyst. No follow-up imaging is recommended. 2. Infrarenal abdominal aortic aneurysm. 3. Large postvoiding urinary bladder residual.
--- NOTE | 2021-09-14 08:34 | ECG_ITS ---
[facility] Test Date: 2021-09-14 Pat Name: Anuj Irving Department: Room: 277 Gender: Male Product Marketer: : 1945 Requested By: Belinda Roche Order Number: [id number] Dolly MD: Tito Hernandez M.D. Measurements Intervals [place] Rate: 83 P: 63 [place]: 155 QRS: 60 QRSD: 129 T: 82 QT: 418 QTc: 491 Interpretive Statements SINUS RHYTHM POSSIBLE ANTERIOR MYOCARDIAL INFARCTION , OF INDETERMINATE AGE [30 ms Q WAVE IN V3/V4, OR R < 0.2 mV IN V4] Compared to ECG 09/14/2021 07:53:49 No significant changes Electronically Signed On 09-15-2021 12:17:52 COMBAT SYSTEMS OPERATOR MINE WARFARE by Tito Hernandez M.D. [email or web address] ClothingKubi Mobimercy health st[facility].[employer]/store/OM/[id number]
[2021-09-14 11:02] LABS: Urine Creatinine 35 mg/dL (39-259)
[2021-09-14 11:22] LABS: Urea Nitrogen,Urine Random 223 mg/dL
[2021-09-14 11:49] LABS: Glucose Point of Care 373 mg/dL (70-110)
--- NOTE | 2021-09-14 12:34 | ECG_ITS ---
[facility] Test Date: 2021-09-14 Pat Name: Anuj Irving Department: Room: 277 Gender: Male Termite Exterminator: : 1945 Requested By: Belinda Roche Order Number: [id number] Dolly MD: Tito Hernandez M.D. Measurements Intervals [place] Rate: 90 P: 60 [place]: 169 QRS: 57 QRSD: 109 T: 68 QT: 364 QTc: 447 Interpretive Statements SINUS RHYTHM LOW QRS VOLTAGE IN PRECORDIAL LEADS [QRS DEFLECTION < 1.0 mV IN CHEST LEADS] ANTEROSEPTAL MYOCARDIAL INFARCTION , OF INDETERMINATE AGE [40+ ms Q WAVE IN V1-V4] Compared to ECG 09/14/2021 10:53:46 Low QRS voltage now present Myocardial infarct finding still present Electronically Signed On 09-15-2021 12:17:16 ALIGNING INSPECTOR by Tito Hernandez M.D. [email or web address].[facility].[email or web address]/[id number]
--- NOTE | 2021-09-14 13:29 | PM.PN ---
Subjective Subjective: Reports he is feeling better. Occasional cough. Denies chest pain or pressure. Denies orthopnea. Having some wheezing. Vitals/I&O/Wt Last Vital Signs Temp 97.6 F 09/14/21 11:13 Pulse 81 09/14/21 11:31 Resp 18 09/14/21 11:31 BP 113/64 09/14/21 11:13 Pulse Ox 98 09/14/21 11:31 09/13/21 09/14/21 09/14/21 22:59 06:59 14:59 Intake Total 120 / 120 720 / 720 Output Total 400 / 400 Balance 120 / 120 320 / 320 Weight last 48 hrs Weight 77.111 kg Weight 80.286 kg Physical Exam Const: COMMON NORMALS: no acute distress and patient oriented x3 HENMT: COMMON NORMALS: oropharynx normal Neck/C-Spine: COMMON NORMALS: no JVD Resp: COMMON NORMALS: normal respiratory effort AUSCULTATION: wheezes and diminished lung sounds Cardio: COMMON NORMALS: no JVD, regular rhythm, S1 normal heart sound present, S2 normal heart sound present and No murmurs present (Cardio) RHYTHM: regular rhythm HEART SOUNDS: S1 normal heart sound present and S2 normal heart sound present GI: COMMON NORMALS: Normal to inspection, nondistended, normoactive bowel sounds present, Soft to palpation and non-tender PALPATION: Yes Soft to palpation Extremity: COMMON NORMALS: no joint enlargement and no pedal edema (Trace if any) Neuro: COMMON NORMALS: patient oriented x3 and moves all extremities Skin: COMMON NORMALS: no rashes or lesions noted GENERAL SKIN EXAM: no rashes or lesions noted Data : 09/13/21 20:41 09/14/21 03:50 A&P Assessment and plan (1) Hypoxia: Requiring 2 L nasal cannula oxygen supplementation. Not normally on oxygen. Diminished air entry, wheezing. Renal function worsened with attempted diuresis. BNP elevated, but he otherwise does not appear fluid overloaded, no lower extremity edema, cannot really detect JVD. Lungs do not sound wet. For now hold off additional diuresis. Will give bag of 25 g of 25% albumin. Reassess renal function. He appears to be having COPD distribution with some bronchospastic component. He reports was lacking energy yesterday. Reports that he normally walks around his apartment, and usually that helps with his shortness of breath, but yesterday this did not help his lack of energy and dyspnea. Denies orthopnea. No chest pain or pressure. No significant rise in troponin. BNP elevation may be related to lung disease. Escalate breathing treatment frequency, add as needed. Start steroid. Does not have purulent sputum. Check procalcitonin. May help determine if antibiotic should be added for his COPD exacerbation. Status: Acute (2) Congestive heart failure: I am not convinced that he has heart failure at the moment I cannot tell how much urine he is produced, and output is charted. He does report feeling quite better today, but did also receive a large dose of steroid yesterday. Does not appear fluid overloaded currently. If had congestive heart failure exacerbation this may resolve now. No evidence of cardiac ischemia. Hold additional diuretics now with acute kidney injury. Reassess volume status, oxygenation. Resume diuretic, possibly oral depending on further reassessments. last known EF 35% 06/2021 COVID-19 was negative on rapid study. Received full course of vaccination. Status: Acute Qualifiers: Heart failure chronicity: acute on chronic Heart failure type: systolic Qualified Code(s): I50.23 - Acute on chronic systolic (congestive) heart failure (3) Atrial fibrillation: currently rate controlled Continue Eliquis 5mg BID Status: Acute (4) Diabetes mellitus: ISS + continue home dose of Lantus Status: Acute (5) COPD (chronic obstructive pulmonary disease): COPD with exacerbation with diminished air entry, wheezing, cough, although minimal sputum production. Escalated breathing treatments. Start IV steroid given continued nasal cannula oxygen requirement. Check procalcitonin. Status: Acute (6) Acute bacterial conjunctivitis of left eye: Continue moxifloxacin. Status: Acute (7) NADER (acute kidney injury): Hold further diuretic for now. Albumin infusion. Check urine studies. Kidney ultrasound. Discussed with him. Monitor I&O. Recheck renal function. Hold lisinopril. Status: Acute (8) Hyperkalemia: Low potassium diet. Hold lisinopril. Recheck chemistries. Status: Acute Attestations Medical Necessity Statement*: Continue admission for assessment management of hypoxia, COPD exacerbation, reassessment of possible CHF exacerbation, NADER. 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
[2021-09-14 15:11] LABS: Add Urine Microscopic? NO; Charge for UA Resulting for Rev
[2021-09-14 15:16] LABS: Bilirubin Urine Neg (Negative); Blood Urine Neg (Negative); Glucose Urine UA 4+ (Normal); Ketones Urine Negative (Negative); Leukocyte Esterase Urine Negative (Negative); Nitrate Urine Negative (Negative); Protein Urine Neg (Negative); Urine Appearance Clear (CLEAR); Urine Color Straw (Yellow); Urobilinogen Urine Norm (Negative); pH Urine 5 (5-7)
[2021-09-14 16:27] LABS: Glucose Point of Care 356 mg/dL (70-110)
[2021-09-14 16:32] LABS: Anion Gap 23.6 (5-19); Blood Urea Nitrogen 35 mg/dL (8-23); Calcium 9.2 mg/dL (8.5-10.5); Carbon Dioxide 18 mmol/L (22-29); Chloride 89 mmol/L (98-107); Glucose 359 mg/dL (65-115); Osmolality Calculated 284 mOsm/kg (285-295); Potassium 4.6 mmol/L (3.5-5.1); Sodium 126 mmol/L (136-145)
[2021-09-14] MEDS: tamsulosin 0.4 mg Capsule PO (20:02)
[2021-09-14] MEDS: docusate sodium 100 mg Capsule 200 MG PO (20:02)
[2021-09-14 20:42] LABS: Glucose Point of Care 381 mg/dL (70-110)
[2021-09-15] VITALS (19 sets, daily range): BP systolic 121–149; BP diastolic 55–77; PULSE 77–108; RESP 16–24; TEMP 36.5–37; O2SAT 92–99
[2021-09-15] MEDS: artificial tears Op Soln 15 mL Btl 1 DROP EYE-LEFT ×6 (01:45→20:56)
[2021-09-15] MEDS: ipratropium-albuterol 3 mL Neb INHALATION ×6 (03:46→23:21)
[2021-09-15 04:35] LABS: Basophils % 0.1 %; Hemoglobin 8.5 g/dL (11.7-16.6); Lymphocytes # 0.3 10^3/uL (0.8-4.8); Lymphocytes % 2.6 %; Mean Corpuscular Hemoglobin 32.2 pg (28.0-34.0); Mean Corpuscular Volume 94.7 fl (80-94); Mean Platelet Volume 11.3 fL (7.4-10.4); Monocytes % 8.1 %; Neutrophils # 10.73 10^3/uL (1.8-7.7); Neutrophils % 87.6 %; Nucleated Red Blood Cells % 0 %; Platelet Count 154 10^3/cmm (130-400); Red Blood Count 2.64 10^6/uL (4.1-5.3); Red Cell Distribution Width 13.4 % (12.1-15.1); White Blood Count 12.3 10^3/uL (4.0-10.0)
[2021-09-15 04:58] LABS: Alanine Aminotransferase 15 U/L (0-41); Albumin Level 4.4 g/dL (3.5-5.2); Alkaline Phosphatase 71 IU/L (40-130); Anion Gap 18.8 (5-19); Aspartate Amino Transferase 16 U/L (0-40); Blood Urea Nitrogen 34 mg/dL (8-23); Calcium 9.2 mg/dL (8.5-10.5); Carbon Dioxide 21 mmol/L (22-29); Chloride 90 mmol/L (98-107); Globulin 1.9 g/dL (1.3-4.6); Glucose 296 mg/dL (65-115); Magnesium 1.9 mg/dL (1.7-2.3); Osmolality Calculated 279 mOsm/kg (285-295); Potassium 4.8 mmol/L (3.5-5.1); Sodium 125 mmol/L (136-145); Total Bilirubin 0.8 mg/dL (0.15-1.2); Total Protein 6.3 g/dL (6.6-8.7)
[2021-09-15 06:44] LABS: Glucose Point of Care 378 mg/dL (70-110)
[2021-09-15] MEDS: budesonide 0.5 mg/2 mL Neb INHALATION ×2 (07:45→19:33)
[2021-09-15] MEDS: insulin glargine 100 units/1 mL 15 UNIT SUBCUT (08:35)
[2021-09-15] MEDS: insulin lispro 100 unit/1 mL SUBCUT ×4 (08:36→20:58)
[2021-09-15] MEDS: pantoprazole DR 40 mg Tablet PO ×2 (08:36→17:24)
[2021-09-15] MEDS: bumetanide 1 mg Tablet PO (08:36)
[2021-09-15] MEDS: atorvastatin 40 mg Tablet PO ×2 (08:36→17:25)
[2021-09-15] MEDS: apixaban 5 mg Tablet PO ×2 (08:36→17:25)
--- NOTE | 2021-09-15 09:27 | PM.PN ---
Subjective Subjective: Patient is morning was eating breakfast when entered the room Currently on 2 L nasal cannula Patient is feeling better He is full code Ortiz catheter was placed for BPH related symptoms -2 L fluid balance Put him on Bumex 1 mg daily Change steroids to every 12 hours Vitals/I&O/Wt Last Vital Signs Temp 97.8 F 09/15/21 07:35 Pulse 80 09/15/21 08:03 Resp 16 09/15/21 08:03 BP 135/69 09/15/21 07:35 Pulse Ox 95 09/15/21 08:03 09/14/21 09/15/21 09/15/21 22:59 06:59 14:59 Intake Total 340 / 1160 600 / 1760 360 / 360 Output Total 950 / 1350 1300 / 2650 1100 / 1100 Balance -610 / -190 -700 / -890 -740 / -740 Weight last 48 hrs Weight 77.111 kg Weight 80.286 kg Physical Exam Narrative: Patient was sitting at the bedside Saturating well on 2 L nasal cannula Clinically looks slightly fluid overloaded Bilateral breath sounds with mild expiratory wheeze Abdomen soft distended with obesity Patient is fluid overloaded, 1+ edema of legs noted Appropriate mood and affect Nonfocal neuro exam Very pleasant and cooperative Urinary Catheter Management: Ortiz: Cath Placed During This Visit: yes Reason for Continuing Indwelling Catheter: Acute Urinary Retention or Obstruction Urinary Catheter Date of Insertion: 09/14/21 Urinary Catheter Time of Insertion: 15:59 Data : 09/15/21 03:55 09/15/21 03:55 A&P Assessment and plan (1) NADER (acute kidney injury): Status: Acute (2) Hyperkalemia: Status: Acute (3) Hypoxia: Status: Acute (4) Acute bacterial conjunctivitis of left eye: Status: Acute (5) Congestive heart failure: Status: Acute Qualifiers: Heart failure chronicity: acute on chronic Heart failure type: systolic Qualified Code(s): I50.23 - Acute on chronic systolic (congestive) heart failure (6) Atrial fibrillation: Status: Acute (7) Diabetes mellitus: Status: Acute Plan acute systolic congestive heart failure exacerbation Start Bumex 1 mg p.o. daily Clinical signs of fluid overload Currently doing well on 2 L nasal cannula Wean off oxygen to room air Decrease the dose of steroids to every 12 hours Left eye conjunctivitis continue antibiotic NADER: Resolved Hypervolemic hyponatremia anticipate improvement with diuresis Hyperkalemia: Resolved Hyperglycemia noted, hemoglobin A1c 7, escalate long-acting insulin, repeat A1c level Ortiz cath was placed for urine retention Voiding trial at the time of discharge Attestations Medical Necessity Statement*: Continue medical management, discharge if clinically stable by tomorrow Time Spent in Patient Care: 15min Coding Level of Care Code 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
--- NOTE | 2021-09-15 10:19 | PC.CHAP ---
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 jetting machine operator visit [] Patient/Family/Request visit [] Outpatient visit [] Follow-up visit [] Physician referral [] Code/Alert [x] Routine visit [] Staff referral [] Actively dying [] Patient sleeping [] Family support [] [] Out of room [] Palliative care [] [] Receiving care in room [] Pre-surgical visit [] Trauma [] Long length of stay [] ICU visit [] Other: Relational/Emotional Strength [x] Patient feels connected with others/family/visitors/staff [] Distress [] Loneliness/isolation [] Abandonment Spirituality of Patient [x] Person of Laxmi [x] Attends Yarsanism of their Laxmi [x] Believes in Prayer []x Reads Bible or Bahai materials [] There are Spiritual issues to be addressed General Intern Interventions [x] Prayer x] Active listening [x] Non-anxious presence [x]x Spiritual/emotional support [] Crisis/trauma care [] Spiritual counseling [] Bereavement support [] Provided bereavement packet [] Provided Bible/devotional materials [] Provided toy/stuffed animal, coloring book to patient or family member [] Provided Communion [] Anointing/[place] [] Salvation [x] Completed spiritual assessment [] Other: Impact on Illness or Injury [] Angry [] Fearful [] Anxious [] Often cries [] Exhaustion [] Unable to work [] Unable to attend baptism [] Unable to walk/stand [] Unable to read [] Unable to drive [] Unable to eat/drink [] Unable to sleep [] Unable to be with family [] Patient intubated [] Other: Summary Time spent with patient 15 min
[2021-09-15 11:11] LABS: Glucose Point of Care 529 mg/dL (70-110); Glucose Point of Care 546 mg/dL (70-110)
[2021-09-15] MEDS: insulin lispro 100 unit/1 mL 6 UNIT SUBCUT (12:01)
[2021-09-15 12:07] LABS: Estmated Average Glucose 140; Hemoglobin A1C 6.5 % (4.0-6.0)
[2021-09-15 17:02] LABS: Glucose Point of Care 395 mg/dL (70-110)
[2021-09-15 20:26] LABS: Glucose Point of Care 166 mg/dL (70-110)
[2021-09-15] MEDS: insulin glargine 100 units/1 mL 20 UNIT SUBCUT (20:57)
[2021-09-15] MEDS: tamsulosin 0.4 mg Capsule PO (20:57)
[2021-09-16] VITALS (10 sets, daily range): BP systolic 111–124; BP diastolic 60–65; PULSE 92–127; RESP 18–24; TEMP 36.6–36.7; O2SAT 90–96
[2021-09-16] MEDS: artificial tears Op Soln 15 mL Btl 1 DROP EYE-LEFT ×3 (00:05→08:02)
[2021-09-16] MEDS: ipratropium-albuterol 3 mL Neb INHALATION ×3 (03:06→11:36)
[2021-09-16 04:54] LABS: Hematocrit 25.9 % (42.0-52.0); Hemoglobin 8.6 g/dL (11.7-16.6); Lymphocytes # 0.5 10^3/uL (0.8-4.8); Lymphocytes % 4.4 %; Mean Corpuscular HGB Conc 33.2 g/dL (30.0-36.0); Mean Corpuscular Hemoglobin 31.5 pg (28.0-34.0); Mean Corpuscular Volume 94.9 fl (80-94); Mean Platelet Volume 11.3 fL (7.4-10.4); Monocytes # 1.1 10^3/uL (0.2-0.9); Neutrophils # 9.07 10^3/uL (1.8-7.7); Neutrophils % 82.7 %; Nucleated Red Blood Cells % 0 %; Platelet Count 156 10^3/cmm (130-400); Red Blood Count 2.73 10^6/uL (4.1-5.3); Red Cell Distribution Width 13.8 % (12.1-15.1)
[2021-09-16 05:09] LABS: Blood Urea Nitrogen 36 mg/dL (8-23); Calcium 9.6 mg/dL (8.5-10.5); Carbon Dioxide 23 mmol/L (22-29); Chloride 95 mmol/L (98-107); Glucose 280 mg/dL (65-115); Osmolality Calculated 290 mOsm/kg (285-295); Sodium 131 mmol/L (136-145)
[2021-09-16 06:13] LABS: Glucose Point of Care 301 mg/dL (70-110)
[2021-09-16] MEDS: apixaban 5 mg Tablet PO (08:02)
[2021-09-16] MEDS: atorvastatin 40 mg Tablet PO (08:02)
[2021-09-16] MEDS: pantoprazole DR 40 mg Tablet PO (08:02)
[2021-09-16] MEDS: bumetanide 1 mg Tablet PO (08:02)
[2021-09-16] MEDS: insulin lispro 100 unit/1 mL SUBCUT ×3 (08:03→12:08)
[2021-09-16] MEDS: insulin glargine 100 units/1 mL 20 UNIT SUBCUT (08:03)
[2021-09-16] MEDS: budesonide 0.5 mg/2 mL Neb INHALATION (08:22)
[2021-09-16] MEDS: acetaminophen 325 mg Tablet 650 MG PO (09:08)
--- NOTE | 2021-09-16 09:16 | PC.SOCIAL ---
IMM Update pg 2 of IMM updated and reviewed w/ patient. Copy provided and copy in chart updated.
--- NOTE | 2021-09-16 09:28 | PM.DCS ---
Discharge Providers Date of Admission: 09/13/21 22:31 Date of Discharge: September 16, 2021 Attending Provider at Admission: Belinda Roche MD Attending Provider at Discharge: Asya Giron MD Primary Care Provider: Hamilton Lovett Diagnoses at Discharge Discharge Diagnosis (1) NDAER (acute kidney injury): Status: Acute (2) Hyperkalemia: Status: Acute (3) Hypoxia: Status: Acute (4) Acute bacterial conjunctivitis of left eye: Status: Acute (5) Congestive heart failure: Status: Acute Qualifiers: Heart failure chronicity: acute on chronic Heart failure type: systolic Qualified Code(s): I50.23 - Acute on chronic systolic (congestive) heart failure (6) Atrial fibrillation: Status: Acute (7) Diabetes mellitus: Status: Acute Reason for Visit Reason for Visit: weakness Hospital Course Hospital Course 76-year-old male with history of systolic congestive heart failure EF 35% who it was admitted to the hospital for chief complaint of shortness of breath related to fluid overload. He also has history of moderate aortic stenosis, COPD. Does not use oxygen at home. During this hospitalization he was requiring 2 L of oxygen, we were able to wean him off to room air with diuresis, his NADER improved with diuresis with Bumex as well No active wheezing was noted by myself. He did receive Solu-Medrol in the ER. On 09/16 patient will be discharged home after home O2 evaluation and voiding trial, at the time of discharge I am adding Bumex, discontinue Lasix and glipizide. He remained hyperglycemic, hemoglobin A1c 6.5, he is at risk of hypoglycemia that is why I have discontinued his glipizide. Flomax was added because of urine retention related to prostate/BPH. Referral given to see PCP 09/22, [facility] [place]. He is at risk of fluid overload because of moderate aortic stenosis and poor ejection fraction 35%. For his left EYE blepharitis I would like him to follow-up with his front end drupal developer Dr. Pierre he did receive ophthalmic antibiotics during the hospitalization. Patient is stating that he does have ophthalmic antibiotics at home which he was not able to use because he ended up in the hospital. Physical Exam Narrative: Patient was sitting in a chair Saturating well on room air Trace edema of legs S1, S2 variable Awake and alert Left eye conjunctivitis Nonfocal neuro exam Abdomen soft Urinary Catheter Management: Ortiz: Cath Placed During This Visit: yes Reason for Continuing Indwelling Catheter: Acute Urinary Retention or Obstruction Urinary Catheter Date of Insertion: 09/14/21 Urinary Catheter Time of Insertion: 15:59 Discharge Data Studies Completed and Pending Completed Studies During Hospitalization Category Date Time Status XR chest 1V portable [id number] Urgent Exams 09/13/21 20:27 Completed US kidney bilateral with bladder [US renal BI with PV Ultrasound 09/14/21 08:28 Completed bladder] Routine Pending at discharge Category Date Time Status Complete Blood Count w/Auto AM LABS Lab 09/17/21 04:00 Ordered Radiology Impressions Chest X-Ray 09/13/21 20:27 IMPRESSION: Mild indistinctness of the pulmonary vasculature and increased linear opacities in the mid lower hemithoraces could represent mild pulmonary edema. Renal Ultrasound 09/14/21 08:28 IMPRESSION: 1. Right renal benign cyst. No follow-up imaging is recommended. 2. Infrarenal abdominal aortic aneurysm. 3. Large postvoiding urinary bladder residual. Laboratory Results WBC 11.0 10^3/uL (4.0-10.0) H 09/16/21 04:35 RBC 2.73 10^6/uL (4.1-5.3) L 09/16/21 04:35 Hgb 8.6 g/dL (11.7-16.6) L 09/16/21 04:35 Hct 25.9 % (42.0-52.0) L 09/16/21 04:35 MCV 94.9 fl (80-94) H 09/16/21 04:35 MCH 31.5 pg (28.0-34.0) 09/16/21 04:35 MCHC 33.2 g/dL (30.0-36.0) 09/16/21 04:35 RDW 13.8 % (12.1-15.1) 09/16/21 04:35 Plt Count 156 10^3/cmm (130-400) 09/16/21 04:35 MPV 11.3 fL (7.4-10.4) H 09/16/21 04:35 Neut % (Auto) 82.7 % 09/16/21 04:35 Lymph % (Auto) 4.4 % 09/16/21 04:35 [place] % (Auto) 10.0 % 09/16/21 04:35 Eos % (Auto) 0.0 % 09/16/21 04:35 Baso % (Auto) 0.0 % 09/16/21 04:35 Neut # (Auto) 9.07 10^3/uL (1.8-7.7) H 09/16/21 04:35 Lymph # (Auto) 0.5 10^3/uL (0.8-4.8) L 09/16/21 04:35 [place] # (Auto) 1.1 10^3/uL (0.2-0.9) H 09/16/21 04:35 Eos # (Auto) 0.0 10^3/uL (0.0-0.8) 09/16/21 04:35 Baso # (Auto) 0.0 10^3/uL (0.0-0.1) 09/16/21 04:35 Nucleated RBC % (auto) 0 % 09/16/21 04:35 Nucleated RBCs # 0.0 /100WBC 09/16/21 04:35 Sodium 131 mmol/L (136-145) L 09/16/21 04:35 Potassium 5.0 mmol/L (3.5-5.1) 09/16/21 04:35 Chloride 95 mmol/L (98-107) L 09/16/21 04:35 Carbon Dioxide 23 mmol/L (22-29) 09/16/21 04:35 Anion Gap 18.0 (5-19) 09/16/21 04:35 BUN 36 mg/dL (8-23) H 09/16/21 04:35 Creatinine 1.1 mg/dL (0.7-1.2) 09/16/21 04:35 GFR Calculation Not Reportable 09/16/21 04:35 Glucose 280 mg/dL (65-115) H 09/16/21 04:35 POC Glucose 301 mg/dL (70-110) H 09/16/21 06:08 Estimat Average Glucose 140 09/15/21 03:55 Hemoglobin A1c 6.5 % (4.0-6.0) H 09/15/21 03:55 Calculated Osmolality 290 mOsm/kg (285-295) 09/16/21 04:35 Calcium 9.6 mg/dL (8.5-10.5) 09/16/21 04:35 Magnesium 1.9 mg/dL (1.7-2.3) 09/15/21 03:55 Total Bilirubin 0.8 mg/dL (0.15-1.2) 09/15/21 03:55 AST 16 U/L (0-40) 09/15/21 03:55 ALT 15 U/L (0-41) 09/15/21 03:55 Alkaline Phosphatase 71 IU/L (40-130) 09/15/21 03:55 Troponin T Gen 5 ng/L 21 ng/L (0-15) H 09/14/21 03:50 Troponin T Hi Sens 6Hr Cancelled 09/14/21 12:40 Troponin T Hi Sens 6Hr Delta Cancelled 09/14/21 12:40 NT-Pro-B Natriuret Pep 3195 pg/mL (0-450) H 09/13/21 20:41 Total Protein 6.3 g/dL (6.6-8.7) L 09/15/21 03:55 Albumin 4.4 g/dL (3.5-5.2) 09/15/21 03:55 Globulin 1.9 g/dL (1.3-4.6) 09/15/21 03:55 Procalcitonin 0.10 ng/mL (0-0.5) 09/14/21 12:40 Urine Color Straw (Yellow) 09/14/21 10:00 Urine Appearance Clear (CLEAR) 09/14/21 10:00 Urine pH 5 (5-7) 09/14/21 10:00 Ur Specific [place] 1.010 (1.005-1.030) 09/14/21 10:00 Urine Protein Neg (Negative) 09/14/21 10:00 Urine Glucose (UA) 4+ (Normal) H 09/14/21 10:00 Urine Ketones Negative (Negative) 09/14/21 10:00 Urine Blood Neg (Negative) 09/14/21 10:00 Urine Nitrate Negative (Negative) 09/14/21 10:00 Urine Bilirubin Neg (Negative) 09/14/21 10:00 Urine Urobilinogen Norm mg/dL (Negative) 09/14/21 10:00 Ur Leukocyte Esterase Negative (Negative) 09/14/21 10:00 Ur Random Urea Nitrogn 223 mg/dL 09/14/21 10:00 Urine Creatinine 35 mg/dL (39-259) L 09/14/21 10:00 SARS-CoV-2 Ag (Rapid) Negative (Negative) 09/13/21 22:45 Vitals Last Vital Signs Temp 98.0 F 09/16/21 08:00 Pulse 100 09/16/21 08:32 Resp 20 H 09/16/21 08:22 BP 124/65 09/16/21 08:00 Pulse Ox 96 09/16/21 08:22 Discharge Plan Discharge Patient Disposition: Home Condition: Stable Prescriptions: New bumetanide 1 mg tablet 1 mg PO DAILY Qty: 90 5RF Medrol (Pablo) 4 mg tablets,dose pack 4 mg PO DAILY Qty: 21 0RF azithromycin 250 mg tablet 250 mg PO DAILY 4 Days Qty: 4 0RF Rx Instructions: start on day 2 of therapy Continued multivitamin Tablet 1 tab PO DAILY 0RF metoprolol tartrate 100 mg Tablet 50 mg PO BID 0RF omeprazole 40 mg Capsule,Delayed Release(Dr/Ec) 40 mg PO BID 0RF metformin 1,000 mg Tablet 1,000 mg PO BID 0RF lisinopril 10 mg Tablet 5 mg PO DAILY 0RF docusate sodium 100 mg Capsule 200 mg PO BEDTIME 0RF albuterol sulfate 90 mcg/actuation Hfa Aerosol Inhaler 2 puff INHALATION QID PRN (Reason: Shortness Of Breath) 0RF ipratropium bromide 17 mcg/actuation Hfa Aerosol Inhaler 1 puff INHALATION QID 0RF ferrous gluconate 324 mg (36 mg iron) Tablet 324 mg PO BID 0RF Eliquis 5 mg Tablet 5 mg PO BID 0RF potassium chloride 20 mEq Tablet Extended Release 10 meq PO DAILY 0RF atorvastatin 80 mg Tablet 40 mg PO BID 0RF cholecalciferol (vitamin D3) [Vitamin D3] 25 mcg (1,000 unit) Capsule 25 mcg PO DAILY 0RF Lantus Solostar U-100 Insulin 100 unit/mL (3 mL) Insulin Pen 15 unit SUBCUT BID 0RF Discontinued furosemide [Lasix] 20 mg Tablet 20 mg PO DAILY 0RF glipizide 5 mg Tablet 5 mg PO BID 0RF Discharge Orders: Discharge Order (Routine); Ordered 09/16/21 Ordered By: Asya Giron Referrals: Karyn Chester FNP [Nurse Practitioner] - 7-10 days (CHF exacerbation, added Bumex, discontinue Lasix, systolic congestive heart failure) Hamilton Lovett [Primary Care Provider] - 09/22/21 11:00 am Discharge Diet: Cardiac Discharge Activity: Increase activity as tolerated Patient Instructions: Bumetanide (By mouth) (Bumex), Heart Failure (DC), Leg Edema (ED), Low-Sodium Diet (DC), Opioid Safety Discharge Attestations Time Spent in Discharge Care*: less than 30 min Quality Metrics Clinical Quality Measures [ No reported AMI, CVA or VTE this stay] Coding Level of Care Code Acute Chg FW DC note Diagnoses NADER (acute kidney injury) N17.9 Hyperkalemia E87.5 Hypoxia R09.02 Acute bacterial conjunctivitis of left eye H10.32 Congestive heart failure I50.23 Heart failure chronicity: acute on chronic Heart failure type: systolic Atrial fibrillation I48.91 Diabetes mellitus E11.9
--- NOTE | 2021-09-16 10:17 | PC.NURSE ---
Pulled patients metz at 1015. Patient tolerated well, catheter intact.
--- NOTE | 2021-09-16 11:55 | PC.NURSE ---
Discharge teaching and education were given to patient all questions were answered at this time. IV was discontinued. Vitals stable. Ortiz was discontinued, patient urinated after removal. Medications are being delivered to bedside. All belongings are accounted for.
[2021-09-16 20:30] LABS: Glucose Point of Care 281 mg/dL (70-110)
== END 2021-09-16 12:26 | disposition home or self-care (01) | DRG 291 ==
LOC: ER 23:04 → MEDSURG 09-14 00:17
PROVIDERS: Internal Medicine; Admitting Provider Student in an Organized Health Care Education/Training Program; Emergency Provider Emergency Medicine; PCP Family Medicine; Visit Provider Internal Medicine
DX: I11.0 Hypertensive heart disease with heart failure (principal); I50.23 Acute on chronic systolic (congestive) heart failure; N17.9 Acute kidney failure, unspecified; J44.9 Chronic obstructive pulmonary disease, unspecified; I25.10 Atherosclerotic heart disease of native coronary artery without angina pectoris; E11.9 Type 2 diabetes mellitus without complications; F17.200 Nicotine dependence, unspecified, uncomplicated; I48.91 Unspecified atrial fibrillation; Z79.4 Long term (current) use of insulin; Z79.84 Long term (current) use of oral hypoglycemic drugs; Z79.01 Long term (current) use of anticoagulants; H10.32 Unspecified acute conjunctivitis, left eye; R09.02 Hypoxemia; E87.5 Hyperkalemia; R33.9 Retention of urine, unspecified; N40.1 Benign prostatic hyperplasia with lower urinary tract symptoms; Z98.42 Cataract extraction status, left eye
CPT/HCPCS: 36415; 36416; 51702; 71045; 76770; 76857; 80048; 80053; 81003; 82570; 82962; 83036; 83735; 83880; 84145; 84484; 84540; 85025; 87426; 93005; 94640; 94664; 96372; 96374; 96375; 99285; J1815 ×2; J1940; J2405; J2920; J2930; J7626; P9047

== ENCOUNTER 2021-10-22 16:34 | Emergency (ER) | payer OTHER, MEDICARE, SELFPAY ==
--- NOTE | 2021-10-22 17:10 | XRR_ITS ---
PROCEDURE INFORMATION: Exam: XR Chest Exam date and time: 10/22/2021 6:17 PM Age: 76 years old Clinical indication: Shortness of breath; Prior surgery; Surgery date: 6+ months; Surgery type: Triple bypass, weakness for 3 days; Additional info: SOB TECHNIQUE: Imaging protocol: XR of the chest. Views: 1 view. COMPARISON: CR (CHEST, ) 09/13/2021 9:31 PM FINDINGS: Lungs: Unremarkable. No consolidation. Pleural spaces: Trace bilateral pleural effusions. Heart/Mediastinum: Cardiomegaly. Bones/joints: Sternotomy wires. XR/XR chest 1V portable [id number] IMPRESSION: 1. Trace bilateral pleural effusions. 2. Cardiomegaly. 3. Sternotomy wires.
--- NOTE | 2021-10-22 17:11 | ECG_ITS ---
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 Measurements Intervals [place] Rate: 93 P: -47 HI: 219 QRS: 36 QRSD: 118 T: 83 QT: 357 QTc: 445 Interpretive Statements SINUS RHYTHM WITH FIRST DEGREE AV BLOCK LOW QRS VOLTAGE IN PRECORDIAL LEADS [QRS DEFLECTION < 1.0 mV IN CHEST LEADS] POSSIBLE ANTERIOR MYOCARDIAL INFARCTION , OF INDETERMINATE AGE [30 ms Q WAVE IN V3/V4, OR R < 0.2 mV IN V4] Compared to ECG 09/14/2021 15:53:12 First degree AV block now present Myocardial infarct finding still present Electronically Signed On 10-24-2021 10:46:23 CDT by Ariana Schwartz M.D. [email or web address]
[2021-10-22 17:22] VITALS: BP 144/72; PULSE 94; RESP 16; TEMP 36.8; O2SAT 93; BMI 26.9
--- NOTE | 2021-10-22 19:22 | ED_ITS ---
HPI - SOB/Dyspnea General: Chief Complaint: Shortness of Breath/Dyspnea Stated Complaint: SOB, weak Time Seen by Provider: 10/22/21 19:14 History of Present Illness: HPI Narrative: States has had mild shortness of breath the last 3 to 4 days. He said he has h ad it off and on ever since his open heart surgery. He has been on fluid pill and does produce phlegm daily. He denies any fever chest pain chills bowel or bladder problems. Associated symptoms: Deny abdominal pain, chest pain, fever(s), nausea or vomiting Review of Systems Const: Denies: fever(s), chills or body aches Eyes: Denies: eye discomfort ENMT: Denies: throat pain Card: Denies: chest pain Resp: Reports: dyspnea; Denies: wheezing, pain on inspiration or change in phlegm color GI: Denies: abdominal pain, nausea or vomiting Skin/Breast: Denies: rash Neuro: Denies: headache(s) Psych: Denies: depression or suicidal ideation PFS ED PFSH: Medical History COPD (chronic obstructive pulmonary disease) Coronary artery disease Diabetes mellitus HTN (hypertension) Surgical History 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 Family History Denies family history of Diabetes Clotting disorder Dementia Social History Smoking and tobacco status: current every day smoker Alcohol intake: never Household members: spouse Housing: House Physical Exam Const: COMMON NORMALS: no acute distress, patient oriented x3 and alert HENMT: COMMON NORMALS: normocephalic and external ears normal HEAD & SCALP: normocephalic EXTERNAL EAR: Yes external ears normal Eye: COMMON NORMALS: EOMs intact bilaterally Neck/C-Spine: COMMON NORMALS: no JVD Resp: COMMON NORMALS: normal respiratory effort and No use of accessory muscles AUSCULTATION: crackles (Bases very mild) Laterality: right and left Cardio: COMMON NORMALS: no JVD GI: INSPECTION: Yes normal to inspection Extremity: COMMON NORMALS: normal to inspection and full ROM Neuro: COMMON NORMALS: patient oriented x3 SENSORIUM/ORIENTATION: Yes alert Psych: COMMON NORMALS: mental status grossly normal Skin: COMMON NORMALS: no rashes or lesions noted GENERAL SKIN EXAM: no rashes or lesions noted Course Vital Signs: Vital signs: Vital Signs Temperature 98.3 F 10/22/21 17: Pulse Rate 94 10/22/21 17:22 Respiratory Rate 16 10/22/21 17:22 Blood Pressure 144/72 10/22/21 17:22 Pulse Oximetry 93 10/22/21 17:22 MDM - SOB/Dyspnea Medical Decision Making Patient presents with mild exacerbation of chronic dyspnea. Patient does have history of CHF. Does take water pill. Laboratory studies were negative for any concerning finding things. Patient does have chronic anemia and it does appear improved compared to past readings. Chest x-ray shows mild effusions bilateral patient was encouraged to double up water pill next 3 days primary care provider on Wednesday or return here if worsening. Lab Data : 10/22/21 19:26 10/22/21 19:26 Labs/Radiology: Radiology Impressions Chest X-Ray 10/22/21 17:10 IMPRESSION: 1. Trace bilateral pleural effusions. 2. Cardiomegaly. 3. Sternotomy wires. Laboratory Results WBC 4.6 10^3/uL (4.0-10.0) 10/22/21 19: RBC 3.20 10^6/uL (4.1-5.3) L 10/22/21 19: Hgb 10.1 g/dL (11.7-16.6) L 10/22/21 19: Hct 31.4 % (42.0-52.0) L 10/22/21 19: MCV 98.1 fl (80-94) H 10/22/21 19: MCH 31.6 pg (28.0-34.0) 10/22/21 19: MCHC 32.2 g/dL (30.0-36.0) 10/22/21 19: RDW 15.2 % (12.1-15.1) H 10/22/21 19:26 Plt Count 146 10^3/cmm (130-400) 10/22/21 19: MPV 10.5 fL (7.4-10.4) H 10/22/21 19:26 Neut % (Auto) 64.2 % 10/22/21 19:26 Lymph % (Auto) 14.1 % 10/22/21 19:26 [place] % (Auto) 20.6 % 10/22/21 19: Eos % (Auto) 0.4 % 10/22/21 19:26 Baso % (Auto) 0.0 % 10/22/21 19: Neut # (Auto) 2.96 10^3/uL (1.8-7.7) 10/22/21 19: Lymph # (Auto) 0.7 10^3/uL (0.8-4.8) L 10/22/21 19: [place] # (Auto) 1.0 10^3/uL (0.2-0.9) H 10/22/21 19: Eos # (Auto) 0.0 10^3/uL (0.0-0.8) 10/22/21 19: Baso # (Auto) 0.0 10^3/uL (0.0-0.1) 10/22/21 19: Nucleated RBC % (auto) 0 % 10/22/21 19: Nucleated RBCs # 0.0 /100WBC 10/22/21 19:26 Sodium 133 mmol/L (136-145) L 10/22/21 19: Potassium 4.4 mmol/L (3.5-5.1) 10/22/21 19: Chloride 101 mmol/L (98-107) 10/22/21 19: Carbon Dioxide 22 mmol/L (22-29) 10/22/21 19:26 Anion Gap 14.4 (5-19) 10/22/21 19:26 BUN 17 mg/dL (8-23) 10/22/21 19: Creatinine 1.1 mg/dL (0.7-1.2) 10/22/21 19:26 GFR Calculation Not Reportable 10/22/21 19: Glucose 272 mg/dL (65-115) H 10/22/21 19: Calculated Osmolality 287 mOsm/kg (285-295) 10/22/21 19: Calcium 9.4 mg/dL (8.5-10.5) 10/22/21 19: Total Bilirubin 0.8 mg/dL (0.15-1.2) 10/22/21 19:26 AST 20 U/L (0-40) 10/22/21 19:26 ALT 19 U/L (0-41) 10/22/21 19:26 Alkaline Phosphatase 107 IU/L (40-130) 10/22/21 19:26 NT-Pro-B Natriuret Pep 1187 pg/mL (0-450) H 10/22/21 19:26 Total Protein 6.7 g/dL (6.6-8.7) 10/22/21 19:26 Albumin 4.3 g/dL (3.5-5.2) 10/22/21 19:26 Globulin 2.4 g/dL (1.3-4.6) 10/22/21 19:26 Lipase 41 U/L (13-60) 10/22/21 19:26 Discharge Plan Discharge Patient Disposition: Home Clinical Impression: Chronic dyspnea Condition: Stable Prescriptions: No Action bumetanide 1 mg tablet 1 mg PO DAILY Qty: 90 5RF Medrol (Pablo) 4 mg tablets,dose pack 4 mg PO DAILY Qty: 21 0RF multivitamin Tablet 1 tab PO DAILY 0RF metoprolol tartrate 100 mg Tablet 50 mg PO BID 0RF omeprazole 40 mg Capsule,Delayed Release(Dr/Ec) 40 mg PO BID 0RF metformin 1,000 mg Tablet 1,000 mg PO BID 0RF lisinopril 10 mg Tablet 5 mg PO DAILY 0RF docusate sodium 100 mg Capsule 200 mg PO BEDTIME 0RF albuterol sulfate 90 mcg/actuation Hfa Aerosol Inhaler 2 puff INHALATION QID PRN (Reason: Shortness Of Breath) 0RF ipratropium bromide 17 mcg/actuation Hfa Aerosol Inhaler 1 puff INHALATION QID 0RF ferrous gluconate 324 mg (36 mg iron) Tablet 324 mg PO BID 0RF Eliquis 5 mg Tablet 5 mg PO BID 0RF potassium chloride 20 mEq Tablet Extended Release 10 meq PO DAILY 0RF atorvastatin 80 mg Tablet 40 mg PO BID 0RF cholecalciferol (vitamin D3) [Vitamin D3] 25 mcg (1,000 unit) Capsule 25 mcg PO DAILY 0RF Lantus Solostar U-100 Insulin 100 unit/mL (3 mL) Insulin Pen 15 unit SUBCUT BID 0RF Discharge Orders: Discharge ED (Routine); Ordered 10/22/21 Ordered By: Gómez Lema Referrals: Hamilton Lovett [Primary Care Provider] - Discharge Diet: Usual diet Discharge Activity: Increase activity as tolerated Patient Instructions: Pleural Effusion (DC) Activity Restrictions/Additional Instructions: Follow-up with medical provider as directed. Double up water pill for next 3 days follow-up your primary care provider on Wednesday if you have worsening symptoms please return the ER or see your primary care provider.Return to the ER or your medical provider if condition worsens. Please read and understand discharge instructions. If any questions ask please. To use of inhaler. Coding Level of Care Code ED Industrial Coffee Grinder for Chg Fwd Exam Comprehensive
[2021-10-22 19:41] LABS: Eosinophils % 0.4 %; Hematocrit 31.4 % (42.0-52.0); Hemoglobin 10.1 g/dL (11.7-16.6); Lymphocytes # 0.7 10^3/uL (0.8-4.8); Lymphocytes % 14.1 %; Mean Corpuscular HGB Conc 32.2 g/dL (30.0-36.0); Mean Corpuscular Hemoglobin 31.6 pg (28.0-34.0); Mean Corpuscular Volume 98.1 fl (80-94); Mean Platelet Volume 10.5 fL (7.4-10.4); Monocytes % 20.6 %; Neutrophils # 2.96 10^3/uL (1.8-7.7); Neutrophils % 64.2 %; Nucleated Red Blood Cells % 0 %; Platelet Count 146 10^3/cmm (130-400); Red Cell Distribution Width 15.2 % (12.1-15.1); White Blood Count 4.6 10^3/uL (4.0-10.0)
[2021-10-22 20:23] LABS: Alanine Aminotransferase 19 U/L (0-41); Albumin Level 4.3 g/dL (3.5-5.2); Alkaline Phosphatase 107 IU/L (40-130); Anion Gap 14.4 (5-19); Aspartate Amino Transferase 20 U/L (0-40); Blood Urea Nitrogen 17 mg/dL (8-23); Calcium 9.4 mg/dL (8.5-10.5); Carbon Dioxide 22 mmol/L (22-29); Chloride 101 mmol/L (98-107); Globulin 2.4 g/dL (1.3-4.6); Glucose 272 mg/dL (65-115); Lipase 41 U/L (13-60); NT Pro B Type Natriuretic Pept 1187 pg/mL (0-450); Osmolality Calculated 287 mOsm/kg (285-295); Potassium 4.4 mmol/L (3.5-5.1); Sodium 133 mmol/L (136-145); Total Bilirubin 0.8 mg/dL (0.15-1.2); Total Protein 6.7 g/dL (6.6-8.7)
== END 2021-10-22 20:47 | disposition home or self-care (01) ==
PROVIDERS: Emergency Medicine; Emergency Provider Nurse Practitioner Family; PCP Family Medicine
DX: J90 Pleural effusion, not elsewhere classified (principal); I51.7 Cardiomegaly; I50.9 Heart failure, unspecified; R06.00 Dyspnea, unspecified; D64.9 Anemia, unspecified; J44.9 Chronic obstructive pulmonary disease, unspecified; I25.10 Atherosclerotic heart disease of native coronary artery without angina pectoris; E11.9 Type 2 diabetes mellitus without complications; I10 Essential (primary) hypertension; F17.200 Nicotine dependence, unspecified, uncomplicated
CPT/HCPCS: 71045; 80053; 83690; 83880; 85025; 93005; 99283

== ENCOUNTER 2021-11-26 11:04 | Observation (INO) | payer OTHER, MEDICARE, SELFPAY ==
[2021-11-26] VITALS (13 sets, daily range): BP systolic 115–150; BP diastolic 34–67; PULSE 31–81; RESP 15–30; TEMP 36.4–36.8; O2SAT 93–99
--- NOTE | 2021-11-26 11:14 | W.ED.WEAKNES ---
HPI - Weakness General: Chief complaint: Weakness Stated complaint: low HR Time Seen by Provider: 11/26/21 11:14 History of Present Illness: Mr. Irving is a 76-year-old gentleman with history of CAD with history of CABG, atrial fibrillation, COPD, diabetes, hypertension who presents to the emergency department due to generalized weakness and unwell feeling. Over the past few days he has been feeling unwell and saw his primary care provider yesterday. At that time he was prescribed metoprolol succinate 50 mg. It is somewhat unclear the exact plan as he was on metoprolol tartrate 100 mg twice daily however the patient ended up taking both and starting this morning had generalized symptoms. He feels short of breath especially with exertion and feels generalized weakness. Intensity symptoms moderate to severe. Course has persisted. No other specific changes in health, exacerbating, or alleviating factors identified. 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 Family History Denies family history of Diabetes Clotting disorder Dementia Social History Smoking and tobacco status: current every day smoker Alcohol intake: never Household members: spouse Housing: House Physical Exam Const: COMMON NORMALS: alert GENERAL APPEARANCE: cooperative, well developed and ill appearing (somewhat) HENMT: COMMON NORMALS: normocephalic and atraumatic HEAD & SCALP: normocephalic and atraumatic Eye: COMMON NORMALS: conjunctivae normal CONJUNCTIVA: Yes conjunctivae normal SCLERA: sclerae normal Neck/C-Spine: COMMON NORMALS: supple GENERAL: Yes trachea midline Resp: EFFORT & INSPECTION: Yes tachypneic AUSCULTATION: diminished lung sounds Cardio: COMMON NORMALS: regular rhythm RATE: bradycardic RHYTHM: regular rhythm GI: COMMON NORMALS: Soft to palpation PALPATION: Yes Soft to palpation and No Tenderness to palpation present (GI) PERCUSSION: normal to percussion Extremity: GENERAL: Yes normal exam except as noted and No edema Neuro: COMMON NORMALS: moves all extremities SENSORIUM/ORIENTATION: Yes alert and No Orientation impaired Psych: COMMON NORMALS: mental status grossly normal and Normal thought process present THOUGHT PROCESS: Normal thought process present Course ED course: - Patient was seen and evaluated by me at bedside - Patient placed on cardiac monitors, IV access obtained - Initial evaluation notable for exam as above. Initially somewhat ill appearing, blood pressure adequate despite bradycardia. - Labs and xrays personally interpreted by me. EKGs reviewed and personally interpreted. - On initial review of EKG P waves are not identified and therefore atropine was not attempted, given likely history of beta-olivia overdose high-dose IV glucagon given. - Patient had mild improvement, though this sustained beyond predicted half-life of glucagon, heart rates from consistently low 30s to low to mid 40s. - Attempted to order additional dose of glucagon however unfortunately, due to overall hospital supply, we do not have enough to repeat dose can start drip. Given uncertain response to initial dose I will plan to treat hyperkalemia first and observe for effect. I feel that this is reasonable given patient's improvement and overall clinical feeling and blood pressure remaining adequate. - Labs notable for minimal leukocytosis, normal hemoglobin. Metabolic panel notable for likely intravascular dehydration as well as hyperkalemia. - Albuterol, insulin, dextrose given for hyperkalemia - Imaging notable for no lobar consolidation or pneumothorax - Upon serial reexamination after treatment the patient was improved though remains bradycardic requiring inpatient observation period for washout medication - Based on patient history, evaluation, and testing as interpreted the most likely cause of the patient's condition is symptomatic bradycardia likely secondary to beta-olivia toxicity - The results of ED evaluation were discussed with the patient including plan for admission due to requirement for level of care not available if discharged to prevent significant worsening/deterioration. - Admitting service was contacted and Dr Harrell with the hospitalist service agreed to admit the patient - Patient was admitted without further deterioration or significant events. Note: Click bubbles or prepopulated fraga in note writing are used for assistance with data collection and billing and are inherently more limited than narrative and other text portions of this note. Please use narrative for additional clinical history and defer to narrative/free test for any case of contradictory information. If information appears in only free text or click bubble it should be considered present or absent as reported. Please contact note real estate underwriter for clarifications of clinical information or contradictory information. MDM is a brief summary, contradictory or erroneous seeming information should be clarified and full note should be reviewed. Vital Signs: Vital signs: Vital Signs Temperature 98.5 F 11/27/21 11:26 Pulse Rate 67 11/27/21 11:26 Respiratory Rate 19 H 11/27/21 11:26 Blood Pressure 129/57 11/27/21 11:26 Pulse Oximetry 98 11/27/21 11:26 MDM - Weakness Medical Decision Making 76-year-old gentleman presenting with symptomatic bradycardia in the context of likely misunderstanding regarding medications which. Blood pressure remained adequate. Attempted IV glucagon with some improvement that persisted beyond likely half-life of uncertain etiology. Admitted for further observation and management. Medical Records I reviewed the patient's medical records. Lab Data I reviewed the patient's lab results. : 11/27/21 05:01 11/27/21 05:01 Radiology Impressions Chest X-Ray 11/26/21 11:21 IMPRESSION: No acute abnormality. Laboratory Results WBC 11.2 10^3/uL (4.0-10.0) H 11/26/21 11:32 RBC 3.71 10^6/uL (4.1-5.3) L 11/26/21 11:32 Hgb 11.8 g/dL (11.7-16.6) 11/26/21 11:32 Hct 36.5 % (42.0-52.0) L 11/26/21 11:32 MCV 98.4 fl (80-94) H 11/26/21 11:32 MCH 31.8 pg (28.0-34.0) 11/26/21 11:32 MCHC 32.3 g/dL (30.0-36.0) 11/26/21 11:32 RDW 14.4 % (12.1-15.1) 11/26/21 11:32 Plt Count 184 10^3/cmm (130-400) 11/26/21 11:32 MPV 11.8 fL (7.4-10.4) H 11/26/21 11:32 Neut % (Auto) 74.3 % 11/26/21 11:32 Lymph % (Auto) 11.7 % 11/26/21 11:32 [place] % (Auto) 12.4 % 11/26/21 11:32 Eos % (Auto) 0.2 % 11/26/21 11:32 Baso % (Auto) 0.1 % 11/26/21 11:32 Neut # (Auto) 8.35 10^3/uL (1.8-7.7) H 11/26/21 11:32 Lymph # (Auto) 1.3 10^3/uL (0.8-4.8) 11/26/21 11:32 [place] # (Auto) 1.4 10^3/uL (0.2-0.9) H 11/26/21 11:32 Eos # (Auto) 0.0 10^3/uL (0.0-0.8) 11/26/21 11:32 Baso # (Auto) 0.0 10^3/uL (0.0-0.1) 11/26/21 11:32 Nucleated RBC % (auto) 0 % 11/26/21 11:32 Nucleated RBCs # 0.0 /100WBC 11/26/21 11:32 Sodium 136 mmol/L (136-145) 11/26/21 11:32 Potassium 6.0 mmol/L (3.5-5.1) H 11/26/21 11:32 Chloride 100 mmol/L (98-107) 11/26/21 11:32 Carbon Dioxide 23 mmol/L (22-29) 11/26/21 11:32 Anion Gap 19.0 (5-19) 11/26/21 11:32 BUN 25 mg/dL (8-23) H 11/26/21 11:32 Creatinine 1.5 mg/dL (0.7-1.2) H 11/26/21 11:32 GFR Calculation Not Reportable 11/26/21 11:32 Glucose 238 mg/dL (65-115) H 11/26/21 11:32 POC Glucose 249 mg/dL (70-110) H 11/26/21 11:44 Calculated Osmolality 294 mOsm/kg (285-295) 11/26/21 11:32 Calcium 10.0 mg/dL (8.5-10.5) 11/26/21 11:32 Magnesium 1.8 mg/dL (1.7-2.3) 11/26/21 11:32 Total Bilirubin 0.6 mg/dL (0.15-1.2) 11/26/21 11:32 AST 21 U/L (0-40) 11/26/21 11:32 ALT 20 U/L (0-41) 11/26/21 11:32 Alkaline Phosphatase 136 IU/L (40-130) H 11/26/21 11:32 Troponin T Baseline 23 ng/L (0-15) H 11/26/21 11:32 NT-Pro-B Natriuret Pep 2063 pg/mL (0-450) H 11/26/21 11:32 Total Protein 6.9 g/dL (6.6-8.7) 11/26/21 11:32 Albumin 5.0 g/dL (3.5-5.2) 11/26/21 11:32 Globulin 1.9 g/dL (1.3-4.6) 11/26/21 11:32 TSH 2.36 uIU/mL (0.27-4.20) 11/26/21 11:32 Critical Care Time Critical Care Time: Critical Care Time: Yes Total Critical Care Time: 50 Attestation: Due to a high probability of clinically significant, possibly life threatening deterioration, the patient required my highest level of attention and preparedness to intervene emergently and I personally spent this critical care time directly and personally managing the patient. This critical care time included obtaining a history; examining the patient; pulse oximetry; ordering and review of laboratory and imaging studies; arranging urgent treatment with development of a management plan; evaluation of patient's response to treatment; frequent reassessment; and, discussions with other providers as applicable. It was exclusive of separately billable procedures. Primary system involved is cardiac Discharge Plan Discharge Patient Disposition: Admitted As Inpatient Admit Provider: Donnie Harrell Clinical Impression: Symptomatic bradycardia, Toxic effect of beta olivia, NADER (acute kidney injury), Hyperkalemia Condition: Stable Discharge Diet: Cardiac Discharge Activity: Resume usual activity Coding Level of Care Code ED Mine Safety Director for g Fwd Exam Comprehensive
--- NOTE | 2021-11-26 11:21 | ECG_ITS ---
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 Measurements Intervals [place] Rate: 53 P: [place]: QRS: 72 QRSD: 110 T: 71 QT: 464 QTc: 440 Interpretive Statements Sinus rhythm with occasional ventricular standstill and junctional escape beats ANTEROSEPTAL MYOCARDIAL INFARCTION , OF INDETERMINATE AGE [40+ ms Q WAVE IN V1-V4] Compared to ECG 10/22/2021 19:17:21 First degree AV block no longer present Myocardial infarct finding still present Electronically Signed On 11-27-2021 10:55:19 CDT by Himanshu Chavarria M.D. [id number]
--- NOTE | 2021-11-26 11:21 | XRR_ITS ---
PROCEDURE INFORMATION: Exam: XR Chest Exam date and time: 11/26/2021 11:45 AM Age: 76 years old Clinical indication: Shortness of breath; Additional info: Bradycardia, SOB TECHNIQUE: Imaging protocol: XR of the chest. Views: 1 view. COMPARISON: CR (CHEST, ) 10/22/2021 6:17 PM FINDINGS: Lungs: Unremarkable. No consolidation. Pleural spaces: Unremarkable. No pleural effusion. No pneumothorax. Heart/Mediastinum: The heart is not enlarged. The patient has undergone coronary bypass and aortic valve replacement. Bones/joints: Median sternotomy. XR/XR chest 1V portable [id number] IMPRESSION: No acute abnormality.
[2021-11-26 11:42] LABS: Basophils % 0.1 %; Eosinophils % 0.2 %; Hematocrit 36.5 % (42.0-52.0); Hemoglobin 11.8 g/dL (11.7-16.6); Lymphocytes # 1.3 10^3/uL (0.8-4.8); Lymphocytes % 11.7 %; Mean Corpuscular HGB Conc 32.3 g/dL (30.0-36.0); Mean Corpuscular Hemoglobin 31.8 pg (28.0-34.0); Mean Corpuscular Volume 98.4 fl (80-94); Mean Platelet Volume 11.8 fL (7.4-10.4); Monocytes # 1.4 10^3/uL (0.2-0.9); Monocytes % 12.4 %; Neutrophils # 8.35 10^3/uL (1.8-7.7); Neutrophils % 74.3 %; Nucleated Red Blood Cells % 0 %; Platelet Count 184 10^3/cmm (130-400); Red Blood Count 3.71 10^6/uL (4.1-5.3); Red Cell Distribution Width 14.4 % (12.1-15.1); White Blood Count 11.2 10^3/uL (4.0-10.0)
[2021-11-26 11:57] LABS: Glucose Point of Care 249 mg/dL (70-110)
[2021-11-26 12:13] LABS: Troponin(5th) Baseline 23 ng/L (0-15)
[2021-11-26 12:20] LABS: Alanine Aminotransferase 20 U/L (0-41); Alkaline Phosphatase 136 IU/L (40-130); Aspartate Amino Transferase 21 U/L (0-40); Blood Urea Nitrogen 25 mg/dL (8-23); Carbon Dioxide 23 mmol/L (22-29); Chloride 100 mmol/L (98-107); Globulin 1.9 g/dL (1.3-4.6); Glucose 238 mg/dL (65-115); Magnesium 1.8 mg/dL (1.7-2.3); NT Pro B Type Natriuretic Pept 2063 pg/mL (0-450); Osmolality Calculated 294 mOsm/kg (285-295); Sodium 136 mmol/L (136-145); Thyroid Stimulating Hormone 2.36 uIU/mL (0.27-4.20); Total Bilirubin 0.6 mg/dL (0.15-1.2); Total Protein 6.9 g/dL (6.6-8.7)
--- NOTE | 2021-11-26 13:00 | PC.PHAR ---
PT STATES HE TAKES CARE OF HIS OWN MEDICATIONS-PT STATES HE IS UNSURE OF ALL THE NAMES OF THE MEDICATIONS-PT BROUGHT IN METOPROLOL SUCCINATE ER 50MG DAILY AND METOPROLOL TARTRATE 50MG BID PT STATES HE TOOK BOTH OF THEM TODAY-PTS WENT THROUGH THE PTS MEDICATION BOTTLES AT HOME AND STATES THE PT TAKES THE MEDICATIONS ENTERED-PTS STATES THE PT HAS A BOTTLE OF CARVEDILOL 3.125MG BID MEDICATION IS NOT ON PTS VA MED LIST-PT STATES HE IS ONLY USING ONE PRESCRIPTION EYE DROP-NOTES ARE MADE IN THE PHARMACY COMMENTS
--- NOTE | 2021-11-26 13:21 | ECG_ITS ---
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 Measurements Intervals [place] Rate: 35 P: [place]: QRS: 71 QRSD: 95 T: 71 QT: 479 QTc: 367 Interpretive Statements Junctional rhythm, bradycardia ANTEROSEPTAL MYOCARDIAL INFARCTION , PROBABLY old Compared to ECG 11/26/2021 11:37:42 No significant changes Electronically Signed On 11-27-2021 11:00:07 CDT by Himanshu Chavarria M.D. [id number]
[2021-11-26] MEDS: dextrose 10% 250 ML 999 ML IV (13:27)
[2021-11-26] MEDS: insulin regular-human 100 units/1 mL 10 UNIT IVP (13:56)
[2021-11-26 14:00] LABS: Troponin 5 2HR 20.54 ng/L (0-15)
[2021-11-26 14:02] LABS: Troponin 5 2HR Delta -2.46 ABS# (0-10)
--- NOTE | 2021-11-26 15:59 | PM.HP ---
Providers/Chief Complaint Admitting Physician: Donnie Harrell MD Primary Care Provider: Hamilton Lovett Chief Complaint: low HR History of Present Illness Anuj Irving is a 76 year old male with a past medical history of CABG, atrial fibrillation on Eliquis, hypertension, insulin-dependent type 2 diabetes mellitus, hyperlipidemia, COPD, who presents to [facility] due to lightheadedness, dizziness, feeling unwell. Patient tells [facility] 100 metoprolol tartrate q. 24 hours to 50 mg metoprolol succinate. This morning, he accidentally took both of these medications, then he was feeling lightheaded dizzy and feeling unwell. In the emergency room he was found to have sinus bradycardia, heart rate in the 40s, has received calcium gluconate, insulin, glucagon, fluid, magnesium, currently heart rates in the 60s, alert oriented x3, normotensive, feels like he is clinically doing better. Denies any chest pain, no palpitations, no nausea, no vomiting, no history of cardiac arrhythmias, history of bradycardia Review of Systems Const: Denies: fever(s) Eyes: Denies: change in vision ENMT: Denies: nasal congestion Resp: Denies: dyspnea, productive cough, non-productive cough or wheezing GI: Denies: abdominal pain, nausea or vomiting : Denies: dysuria Musc: Denies: back pain Skin/Breast: Denies: rash Endo: Denies: polyuria or polydipsia Medications/Allergies Home Medications Medication Instructions Recorded Confirmed Last Taken Type albuterol sulfate 90 mcg/actuation 2 puff INHALATION Q4H PRN 07/12/21 11/26/21 Unknown History aerosol inhaler apixaban 5 mg tablet (Eliquis) 5 mg PO BID 07/12/21 11/26/21 08/18/21 06:00 History atorvastatin 80 mg tablet 80 mg PO QPM 07/12/21 11/26/21 08/18/21 06:00 History cholecalciferol (vitamin D3) 25 25 mcg PO DAILY 07/12/21 11/26/21 08/18/21 06:00 History mcg (1,000 unit) capsule (Vitamin D3) docusate sodium 100 mg capsule 100 - 200 mg PO DAILY PRN 07/12/21 11/26/21 07/11/21 History insulin glargine 100 unit/mL (3 15 unit SUBCUT BID@0630,1830 07/12/21 11/26/21 11/26/21 History mL) subcutaneous pen (Lantus Solostar U-100 Insulin) lisinopril 10 mg tablet 5 mg PO DAILY 07/12/21 11/26/21 08/18/21 06:00 History metformin 1,000 mg tablet 1,000 mg PO BID 07/12/21 11/26/21 08/18/21 06:00 History metoprolol tartrate 100 mg tablet 50 mg PO BID 07/12/21 11/26/21 11/26/21 History multivitamin 1 tab PO DAILY 07/12/21 11/26/21 08/18/21 06:00 History omeprazole 40 mg capsule,delayed 40 mg PO BID 07/12/21 11/26/21 08/18/21 06:00 History release potassium chloride 20 mEq 10 meq PO DAILY 07/12/21 11/26/21 08/18/21 06:00 History tablet,extended release carboxymethylcellulose sodium 1 % 1 drp OPHTHALMIC (EYE) BID PRN 11/26/21 11/26/21 Unknown History eye liquid gel drops (Refresh Liquigel) carvedilol 6.25 mg tablet 3.125 mg PO BID 11/26/21 11/26/21 Unknown History ferrous gluconate 324 mg (38 mg 324 mg PO BID 11/26/21 11/26/21 Unknown History iron) tablet fluticasone 100 mcg-salmeterol 50 1 inh INHALATION BID 11/26/21 11/26/21 Unknown History mcg/dose blistr powdr for inhalation (Advair Diskus) furosemide 40 mg tablet (Lasix) 40 mg PO QAM 11/26/21 11/26/21 Unknown History glipizide 10 mg tablet 20 mg PO BID 11/26/21 11/26/21 Unknown History ipratropium 20 mcg-albuterol 100 1 puff INHALATION Q6H PRN 11/26/21 11/26/21 Unknown History mcg/actuation mist for inhalation metoprolol succinate 50 mg 50 mg PO DAILY 11/26/21 11/26/21 11/26/21 History tablet,extended release 24 hr prednisolone acetate 1 % eye 1 drp OPHTHALMIC (EYE) BID 11/26/21 11/26/21 Unknown History drops,suspension Allergies Allergy/AdvReac Type Severity Reaction Status Date / Time No Known Allergies Allergy Verified 11/26/21 12:51 PFSH Acute PFSH: Medical History Atrial fibrillation COPD (chronic obstructive pulmonary disease) Coronary artery disease Diabetes mellitus HTN (hypertension) Surgical History 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 Family History Denies family history of Diabetes Clotting disorder Dementia Social History Smoking and tobacco status: current every day smoker Alcohol intake: never Household members: spouse Housing: House Vitals/I&O/Wt Last Vital Signs Temp 97.6 F 11/26/21 11:06 Pulse 43 L 11/26/21 13:30 Resp 20 H 11/26/21 13:30 BP 115/34 11/26/21 13:30 Pulse Ox 99 11/26/21 13:30 Weight last 48 hrs Weight 77.564 kg Physical Exam Const: COMMON NORMALS: no acute distress and patient oriented x3 HENMT: COMMON NORMALS: normocephalic HEAD & SCALP: normocephalic Neck/C-Spine: COMMON NORMALS: no JVD Resp: COMMON NORMALS: normal respiratory effort, No retractions, No use of accessory muscles and clear to auscultation bilaterally AUSCULTATION: clear to auscultation bilaterally Cardio: COMMON NORMALS: no JVD, regular rate, regular rhythm, S1 normal heart sound present and S2 normal heart sound present RATE: regular rate RHYTHM: regular rhythm HEART SOUNDS: S1 normal heart sound present and S2 normal heart sound present GI: COMMON NORMALS: Normal to inspection, nondistended, normoactive bowel sounds present, Soft to palpation, non-tender, No hepatosplenomegaly present, no masses and no bruits PALPATION: Yes Soft to palpation and Yes No hepatosplenomegaly present Extremity: COMMON NORMALS: capillary refill normal, no clubbing, cyanosis or edema, no calf tenderness and no pedal edema Neuro: COMMON NORMALS: patient oriented x3, CN's II-XII intact bilaterally, moves all extremities, no focal motor deficits and no sensory deficits noted Psych: COMMON NORMALS: mental status grossly normal Data : 11/26/21 11:32 11/26/21 11:32 A&P Assessment and plan (1) Symptomatic bradycardia: Status: Acute (2) Toxic effect of beta olivia: Status: Acute (3) NADER (acute kidney injury): Status: Acute (4) Hyperkalemia: Status: Acute Plan Beta-olivia toxicity -Hold beta-blockers -Heart rates in the 60s, normotensive, alert oriented x3 -Continue to monitor Hyperkalemia, status post calcium gluconate, insulin, recheck BMP NADER, will give 5 cc bolus, monitor urine output, monitor creatinine History of CABG, Atrial fibrillation continue Eliquis, hold beta-olivia Insulin-dependent diabetes mellitus, decrease Lantus dose to 10 units twice daily, low-dose sliding scale Full code Eliquis for DVT prophylaxis Attestations Medical Necessity Statement*: Patient requires hospitalization for beta-olivia toxicity, outpatient with observation Coding Level of Care Code Acute Branch Credit Counselor for [facility] Fwd Diagnoses Symptomatic bradycardia R00.1 Toxic effect of beta olivia NADER (acute kidney injury) N17.9 Hyperkalemia E87.5
[2021-11-26] MEDS: sodium chloride 0.9% 500 ML 250 ML IV (16:08)
[2021-11-26 16:43] LABS: Glucose Point of Care 432 mg/dL (70-110)
[2021-11-26] MEDS: calcium gluconate 0.9% NaCL 1 GM/50 ML PREMIX IV (16:53)
[2021-11-26 17:06] LABS: Anion Gap 17.9 (5-19); Blood Urea Nitrogen 29 mg/dL (8-23); Calcium 9.3 mg/dL (8.5-10.5); Carbon Dioxide 19 mmol/L (22-29); Chloride 100 mmol/L (98-107); Glucose 318 mg/dL (65-115); Osmolality Calculated 290 mOsm/kg (285-295); Potassium 5.9 mmol/L (3.5-5.1); Sodium 131 mmol/L (136-145)
--- NOTE | 2021-11-26 17:21 | ECG_ITS ---
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 Measurements Intervals [place] Rate: 43 P: -41 MD: 155 QRS: 63 QRSD: 109 T: 72 QT: 471 QTc: 401 Interpretive Statements Junctional rhythm ANTEROSEPTAL MYOCARDIAL INFARCTION , OF INDETERMINATE AGE [40+ ms Q WAVE IN V1-V4] Compared to ECG 11/26/2021 11:54:09 Myocardial infarct finding still present Electronically Signed On 11-27-2021 11:00:29 CDT by Himanshu Chavarria M.D. [id number]
[2021-11-26 17:49] LABS: Glucose Point of Care 405 mg/dL (70-110)
[2021-11-26] MEDS: pantoprazole DR 40 mg Tablet PO (18:25)
[2021-11-26] MEDS: ferrous gluconate 324 mg Tablet PO (18:25)
[2021-11-26] MEDS: apixaban 5 mg Tablet PO (18:25)
[2021-11-26] MEDS: insulin glargine 100 units/1 mL 10 UNIT SUBCUT (18:25)
[2021-11-26] MEDS: atorvastatin 40 mg Tablet 80 MG PO (18:25)
[2021-11-26] MEDS: insulin lispro 100 unit/1 mL SUBCUT (18:26)
[2021-11-26 20:26] LABS: Add Urine Microscopic? NO; Charge for UA Resulting for Rev
[2021-11-26 20:32] LABS: Bilirubin Urine Neg (Negative); Blood Urine Neg (Negative); Glucose Urine UA 4+ (Normal); Ketones Urine Negative (Negative); Leukocyte Esterase Urine Negative (Negative); Nitrate Urine Negative (Negative); Protein Urine Neg (Negative); Specific Gravity, Urine 1.005 (1.005-1.030); Urine Appearance Clear (CLEAR); Urine Color Yellow (Yellow); Urobilinogen Urine Norm (Negative); pH Urine 5 (5-7)
[2021-11-26] MEDS: prednisoLONE 1% Op Susp 5 mL Btl 1 DROP EYE-BOTH (21:03)
[2021-11-26 21:14] LABS: Glucose Point of Care 163 mg/dL (70-110)
--- NOTE | 2021-11-26 22:56 | PC.NURSE ---
2 doses of Calcium Gluconate given as ordered per day shift Naomi CIFUENTES. Per report from Naomi, RN, ED gave 1 dose of Calcium Gluconate as ordered but ED did not scan it, per report from Naomi. Naomi gave second dose as seen on SEP.
[2021-11-27] VITALS: BP 110/61; PULSE 68; RESP 18; TEMP 36.2; O2SAT 97
[2021-11-27 03:54] VITALS: BP 128/59; PULSE 65; RESP 18; TEMP 36.6; O2SAT 97
[2021-11-27 04:16] VITALS: PULSE 67
[2021-11-27] MEDS: acetaminophen 325 mg Tablet 650 MG PO (04:44)
[2021-11-27 06:14] LABS: Basophils % 0.1 %; Eosinophils % 0.3 %; Hemoglobin 9.8 g/dL (11.7-16.6); Mean Corpuscular HGB Conc 31.6 g/dL (30.0-36.0); Mean Corpuscular Hemoglobin 31.3 pg (28.0-34.0); Mean Platelet Volume 11.7 fL (7.4-10.4); Monocytes # 0.9 10^3/uL (0.2-0.9); Neutrophils # 5.88 10^3/uL (1.8-7.7); Neutrophils % 74.3 %; Nucleated Red Blood Cells % 0 %; Platelet Count 160 10^3/cmm (130-400); Red Blood Count 3.13 10^6/uL (4.1-5.3); Red Cell Distribution Width 14.3 % (12.1-15.1); White Blood Count 7.9 10^3/uL (4.0-10.0)
[2021-11-27 06:22] LABS: Glucose Point of Care 102 mg/dL (70-110)
[2021-11-27 06:53] LABS: Alanine Aminotransferase 21 U/L (0-41); Albumin Level 4.3 g/dL (3.5-5.2); Alkaline Phosphatase 103 IU/L (40-130); Anion Gap 18.3 (5-19); Aspartate Amino Transferase 23 U/L (0-40); Blood Urea Nitrogen 23 mg/dL (8-23); Calcium 9.8 mg/dL (8.5-10.5); Carbon Dioxide 20 mmol/L (22-29); Chloride 103 mmol/L (98-107); Globulin 1.8 g/dL (1.3-4.6); Glucose 92 mg/dL (65-115); Magnesium 1.8 mg/dL (1.7-2.3); NT Pro B Type Natriuretic Pept 920 pg/mL (0-450); Osmolality Calculated 287 mOsm/kg (285-295); Phosphorus 4.3 mg/dL (2.5-4.5); Potassium 4.3 mmol/L (3.5-5.1); Sodium 137 mmol/L (136-145); Total Bilirubin 0.5 mg/dL (0.15-1.2); Total Protein 6.1 g/dL (6.6-8.7)
[2021-11-27] MEDS: insulin glargine 100 units/1 mL 10 UNIT SUBCUT (07:19)
[2021-11-27 07:36] VITALS: BP 140/47; PULSE 67; RESP 17; TEMP 36.5; O2SAT 98
[2021-11-27] MEDS: multivitamin therapeutic Tablet 1 TAB PO (08:20)
[2021-11-27] MEDS: prednisoLONE 1% Op Susp 5 mL Btl 1 DROP EYE-BOTH (08:20)
[2021-11-27] MEDS: apixaban 5 mg Tablet PO (08:20)
[2021-11-27] MEDS: pantoprazole DR 40 mg Tablet PO (08:20)
[2021-11-27 08:59] VITALS: PULSE 67; RESP 16; O2SAT 98
[2021-11-27] MEDS: amiodarone 200 mg Tablet PO (09:22)
[2021-11-27] MEDS: cholecalciferol (vitamin D3) 1,000 unit Tablet 1000 UNIT PO (09:22)
[2021-11-27] MEDS: ferrous gluconate 324 mg Tablet PO (09:22)
--- NOTE | 2021-11-27 10:08 | PM.DCS ---
Discharge Providers Date of Admission: 11/26/21 13:05 Date of Discharge: November 27, 2021 Attending Provider at Admission: Donnie Harrell MD Attending Provider at Discharge: Donnie Harrell MD Primary Care Provider: Hamilton Lovett Diagnoses at Discharge Discharge Diagnosis (1) Symptomatic bradycardia: Status: Acute (2) Toxic effect of beta olivia: Status: Acute (3) NADER (acute kidney injury): Status: Acute (4) Hyperkalemia: Status: Acute Reason for Visit Reason for Visit: low HR Hospital Course Hospital Course Anuj Irving is a 76 year old male with a past medical history of CABG, atrial fibrillation on Eliquis, hypertension, insulin-dependent type 2 diabetes mellitus, hyperlipidemia, COPD, who presents to [facility] due to lightheadedness, dizziness, feeling unwell. Patient was admitted to [facility] for beta-olivia toxicity, symptomatic bradycardia, he accidentally took his metoprolol tart Solo, and succinate. These medications were held, he clinically improved, his heart rates remained in the 60s to 70s s normal sinus rhythm, asymptomatic. Will be discharged on instructions to discontinue metoprolol succinate, Metroprolol tartrate, and to discontinue Coreg which was also on his medication list. For his atrial fibrillation, he was discharged on amiodarone 200 mg once a day, tolerated well, [facility] He also developed acute kidney injury, and hyperkalemia secondary to dehydration, low blood pressures and bradycardia secondary to beta-olivia toxicity. Required fluids, calcium gluconate, insulin, resolved on discharge Physical Exam Const: COMMON NORMALS: no acute distress and patient oriented x3 Resp: COMMON NORMALS: normal respiratory effort, No retractions, No use of accessory muscles and clear to auscultation bilaterally AUSCULTATION: clear to auscultation bilaterally Cardio: COMMON NORMALS: regular rate, regular rhythm, S1 normal heart sound present and S2 normal heart sound present RATE: regular rate RHYTHM: regular rhythm HEART SOUNDS: S1 normal heart sound present and S2 normal heart sound present GI: COMMON NORMALS: Normal to inspection, nondistended, normoactive bowel sounds present, Soft to palpation and non-tender PALPATION: Yes Soft to palpation Extremity: COMMON NORMALS: no pedal edema Neuro: COMMON NORMALS: patient oriented x3 Psych: COMMON NORMALS: mental status grossly normal Discharge Data Studies Completed and Pending Completed Studies During Hospitalization Category Date Time Status XR chest 1V portable [id number] Urgent Exams 11/26/21 11:21 Completed Pending at discharge Category Date Time Status Complete Blood Count w/Auto AM LABS Lab 11/28/21 04:00 Ordered Complete Blood Count w/Auto AM LABS Lab 11/29/21 04:00 Ordered Comprehensive Metabolic Panel AM LABS Lab 11/28/21 04:00 Ordered Comprehensive Metabolic Panel AM LABS Lab 11/29/21 04:00 Ordered Magnesium AM LABS Lab 11/28/21 04:00 Ordered Magnesium AM LABS Lab 11/29/21 04:00 Ordered NT Pro B Type Natriuretic Pept QAM Lab 11/28/21 06:00 Ordered NT Pro B Type Natriuretic Pept QAM Lab 11/29/21 06:00 Ordered Phosphorus AM LABS Lab 11/28/21 04:00 Ordered Phosphorus AM LABS Lab 11/29/21 04:00 Ordered Radiology Impressions Chest X-Ray 11/26/21 11:21 IMPRESSION: No acute abnormality. Laboratory Results WBC 7.9 10^3/uL (4.0-10.0) 11/27/21 05:01 RBC 3.13 10^6/uL (4.1-5.3) L 11/27/21 05:01 Hgb 9.8 g/dL (11.7-16.6) L 11/27/21 05:01 Hct 31.0 % (42.0-52.0) L 11/27/21 05:01 MCV 99.0 fl (80-94) H 11/27/21 05:01 MCH 31.3 pg (28.0-34.0) 11/27/21 05:01 MCHC 31.6 g/dL (30.0-36.0) 11/27/21 05:01 RDW 14.3 % (12.1-15.1) 11/27/21 05:01 Plt Count 160 10^3/cmm (130-400) 11/27/21 05:01 MPV 11.7 fL (7.4-10.4) H 11/27/21 05:01 Neut % (Auto) 74.3 % 11/27/21 05:01 Lymph % (Auto) 13.0 % 11/27/21 05:01 [place] % (Auto) 11.0 % 11/27/21 05:01 Eos % (Auto) 0.3 % 11/27/21 05:01 Baso % (Auto) 0.1 % 11/27/21 05:01 Neut # (Auto) 5.88 10^3/uL (1.8-7.7) 11/27/21 05:01 Lymph # (Auto) 1.0 10^3/uL (0.8-4.8) 11/27/21 05:01 [place] # (Auto) 0.9 10^3/uL (0.2-0.9) 11/27/21 05:01 Eos # (Auto) 0.0 10^3/uL (0.0-0.8) 11/27/21 05:01 Baso # (Auto) 0.0 10^3/uL (0.0-0.1) 11/27/21 05:01 Nucleated RBC % (auto) 0 % 11/27/21 05:01 Nucleated RBCs # 0.0 /100WBC 11/27/21 05:01 Sodium 137 mmol/L (136-145) 11/27/21 05:01 Potassium 4.3 mmol/L (3.5-5.1) 11/27/21 05:01 Chloride 103 mmol/L (98-107) 11/27/21 05:01 Carbon Dioxide 20 mmol/L (22-29) L 11/27/21 05:01 Anion Gap 18.3 (5-19) 11/27/21 05:01 BUN 23 mg/dL (8-23) 11/27/21 05:01 Creatinine 1.2 mg/dL (0.7-1.2) 11/27/21 05:01 GFR Calculation Not Reportable 11/27/21 05:01 Glucose 92 mg/dL (65-115) 11/27/21 05:01 POC Glucose 102 mg/dL (70-110) 11/27/21 06:16 Calculated Osmolality 287 mOsm/kg (285-295) 11/27/21 05:01 Calcium 9.8 mg/dL (8.5-10.5) 11/27/21 05:01 Phosphorus 4.3 mg/dL (2.5-4.5) 11/27/21 05:01 Magnesium 1.8 mg/dL (1.7-2.3) 11/27/21 05:01 Total Bilirubin 0.5 mg/dL (0.15-1.2) 11/27/21 05:01 AST 23 U/L (0-40) 11/27/21 05:01 ALT 21 U/L (0-41) 11/27/21 05:01 Alkaline Phosphatase 103 IU/L (40-130) 11/27/21 05:01 Troponin T Baseline 23 ng/L (0-15) H 11/26/21 11:32 Troponin T 120 Minute 20.54 ng/L (0-15) H 11/26/21 13:31 Delta Troponin T -2.46 ABS# (0-10) L 11/26/21 13:31 Troponin T Hi Sens 6Hr 19.10 ng/L (0-15) H 11/26/21 16:12 Troponin T Hi Sens 6Hr Delta -3.90 ng/L (0-12) L 11/26/21 16:12 NT-Pro-B Natriuret Pep 920 pg/mL (0-450) H 11/27/21 05:01 NT-Pro-B Natriuret Pep Cancelled 11/27/21 05:01 Total Protein 6.1 g/dL (6.6-8.7) L 11/27/21 05:01 Albumin 4.3 g/dL (3.5-5.2) 11/27/21 05:01 Globulin 1.8 g/dL (1.3-4.6) 11/27/21 05:01 TSH 2.36 uIU/mL (0.27-4.20) 11/26/21 11:32 Urine Color Yellow (Yellow) 11/26/21 20:00 Urine Appearance Clear (CLEAR) 11/26/21 20:00 Urine pH 5 (5-7) 11/26/21 20:00 Ur Specific [place] 1.005 (1.005-1.030) 11/26/21 20:00 Urine Protein Neg (Negative) 11/26/21 20:00 Urine Glucose (UA) 4+ (Normal) H 11/26/21 20:00 Urine Ketones Negative (Negative) 11/26/21 20:00 Urine Blood Neg (Negative) 11/26/21 20:00 Urine Nitrate Negative (Negative) 11/26/21 20:00 Urine Bilirubin Neg (Negative) 11/26/21 20:00 Urine Urobilinogen Norm mg/dL (Negative) 11/26/21 20:00 Ur Leukocyte Esterase Negative (Negative) 11/26/21 20:00 Vitals Last Vital Signs Temp 97.7 F 11/27/21 07:36 Pulse 67 11/27/21 08:59 Resp 16 11/27/21 08:59 BP 140/47 11/27/21 07:36 Pulse Ox 98 11/27/21 08:59 Discharge Plan Discharge Patient Disposition: Home Condition: Stable Prescriptions: New amiodarone [Pacerone] 200 mg Tablet 200 mg PO DAILY 30 Days Qty: 30 0RF Continued multivitamin Tablet 1 tab PO DAILY 0RF omeprazole 40 mg Capsule,Delayed Release(Dr/Ec) 40 mg PO BID 0RF metformin 1,000 mg Tablet 1,000 mg PO BID 0RF lisinopril 10 mg Tablet 5 mg PO DAILY 0RF docusate sodium 100 mg Capsule 100 - 200 mg PO DAILY PRN (Reason: Constipation) 0RF albuterol sulfate 90 mcg/actuation Hfa Aerosol Inhaler 2 puff INHALATION Q4H PRN (Reason: Shortness Of Breath) 0RF Eliquis 5 mg Tablet 5 mg PO BID 0RF potassium chloride 20 mEq Tablet Extended Release 10 meq PO DAILY 0RF atorvastatin 80 mg Tablet 80 mg PO QPM 0RF cholecalciferol (vitamin D3) [Vitamin D3] 25 mcg (1,000 unit) Capsule 25 mcg PO DAILY 0RF Lantus Solostar U-100 Insulin 100 unit/mL (3 mL) Insulin Pen 15 unit SUBCUT BID@0630,1830 0RF Lasix 40 mg Tablet 40 mg PO QAM 0RF glipizide 10 mg Tablet 20 mg PO BID 0RF prednisolone acetate 1 % Drops,Suspension 1 drp ophthalmic (eye) BID 0RF Rx Instructions: left eye Advair Diskus 100-50 mcg/dose Blister With Device 1 inh INHALATION BID 0RF Refresh Liquigel 1 % Drops, Liquid Gel 1 drp OPHTHALMIC (EYE) BID PRN (Reason: Dry Eye(S)) 0RF ferrous gluconate 324 mg (38 mg iron) Tablet 324 mg PO BID 0RF ipratropium-albuterol 20-100 mcg/actuation Mist 1 puff INHALATION Q6H PRN (Reason: Shortness Of Breath) 0RF Discontinued metoprolol tartrate 100 mg Tablet 50 mg PO BID 0RF carvedilol 6.25 mg Tablet 3.125 mg PO BID 0RF metoprolol succinate 50 mg Tablet Extended Release 24 Hr 50 mg PO DAILY 0RF Discharge Orders: Discharge Order (Routine); Ordered 11/27/21 Ordered By: Donnie Harrell Referrals: Hamilton Lovett [Primary Care Provider] - Discharge Diet: Cardiac Discharge Activity: Resume usual activity Patient Instructions: Amiodarone (By mouth) (Cordarone, Pacerone), Opioid Safety Activity Restrictions/Additional Instructions: - Please stop beta-olivia including metoprolol tartrate, metoprolol succinate, and Coreg -I started you on amiodarone 200 mg once daily -Follow-up with primary care provider at the [place] next week Discharge Attestations Time Spent in Discharge Care*: less than 30 min Quality Metrics Clinical Quality Measures [ No reported AMI, CVA or VTE this stay] Coding Level of Care Code Acute Chg FW DC note Diagnoses Symptomatic bradycardia R00.1 Toxic effect of beta olivia NADER (acute kidney injury) N17.9 Hyperkalemia E87.5
--- NOTE | 2021-11-27 10:27 | DCPLANNER ---
After several attempts to reach [facility] (All calls unanswered and after awhile ringing in, being disconnected) I [facility]ed info to [facility] as if it were the weekend asking for them to call patient to make appointment please.
--- NOTE | 2021-11-27 10:31 | PC.CHAP ---
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 dinkey locomotive operator visit [] Patient/Family/Request visit [] Outpatient visit [] Follow-up visit [] Physician referral [] Code/Alert [x] Routine visit [] Staff referral [] Actively dying [] Patient sleeping [] Family support [] [] Out of room [] Palliative care [] [x] Receiving care in room [] Pre-surgical visit [] Trauma [x] Long length of stay [] ICU visit [] Other: Relational/Emotional Strength [x] Patient feels connected with others/family/visitors/staff [] Distress [] Loneliness/isolation [] Abandonment Spirituality of Patient [x] Person of Laxmi [] Attends Druze of their Laxmi [x] Believes in Prayer [] Reads Bible or Judaism materials [] There are Spiritual issues to be addressed Experimental Welder Interventions [x] Prayer [x] Active listening [x] Non-anxious presence [x] Spiritual/emotional support [] Crisis/trauma care [x] Spiritual counseling [] Bereavement support [] Provided bereavement packet [] Provided Bible/devotional materials [] Provided toy/stuffed animal, coloring book to patient or family member [] Provided Communion [] Anointing/[place] [] Salvation [x] Completed spiritual assessment [] Other: Impact on Illness or Injury [] Angry [] Fearful [x] Anxious [] Often cries [] Exhaustion [x] Unable to work [] Unable to attend scientology [] Unable to walk/stand [] Unable to read [] Unable to drive [] Unable to eat/drink [] Unable to sleep [] Unable to be with family [] Patient intubated [] Other: Summary Senior took wrong meds going home has good attitude Time spent with patient 10 mins
[2021-11-27 10:59] LABS: Glucose Point of Care 299 mg/dL (70-110)
[2021-11-27 11:26] VITALS: BP 129/57; PULSE 67; RESP 19; TEMP 36.9; O2SAT 98
[2021-11-27] MEDS: insulin lispro 100 unit/1 mL SUBCUT (12:27)
== END 2021-11-27 12:30 | disposition home or self-care (01) ==
LOC: ER 13:05 → CSU 16:20
PROVIDERS: Admitting Provider Family Medicine; Emergency Provider Emergency Medicine; PCP Family Medicine; Visit Provider Family Medicine
DX: R00.1 Bradycardia, unspecified (principal); N17.9 Acute kidney failure, unspecified; E87.5 Hyperkalemia; Z95.1 Presence of aortocoronary bypass graft; I48.91 Unspecified atrial fibrillation; I10 Essential (primary) hypertension; E11.9 Type 2 diabetes mellitus without complications; Z79.4 Long term (current) use of insulin; E78.5 Hyperlipidemia, unspecified; J44.9 Chronic obstructive pulmonary disease, unspecified; Z79.84 Long term (current) use of oral hypoglycemic drugs; I25.10 Atherosclerotic heart disease of native coronary artery without angina pectoris; F17.210 Nicotine dependence, cigarettes, uncomplicated
CPT/HCPCS: 36415; 36416; 71045; 80048; 80053; 81003; 82962; 83735; 83880; 84100; 84443; 84484; 85025; 93005; 94640; 94664; 96365; 96367; 96372; 96375; 99285; G0378; J0610; J1610; J1815 ×2; J3475; J7040; J7611; J7799

== ENCOUNTER → 2021-12-03 13:58 | Outpatient (BNVA) | payer OTHER, SELFPAY | PROVIDERS: PCP Family Medicine; Visit Provider Internal Medicine Cardiovascular Disease | DX: R55 Syncope and collapse (principal); I49.1 Atrial premature depolarization; I49.3 Ventricular premature depolarization | CPT/HCPCS: 93225 ==

== ENCOUNTER → 2021-12-23 12:27 | Outpatient (BNVA) | payer OTHER, SELFPAY | PROVIDERS: PCP Family Medicine; Visit Provider Internal Medicine | DX: I48.91 Unspecified atrial fibrillation (principal); I11.0 Hypertensive heart disease with heart failure; I50.9 Heart failure, unspecified; I35.0 Nonrheumatic aortic (valve) stenosis; I25.10 Atherosclerotic heart disease of native coronary artery without angina pectoris; Z79.01 Long term (current) use of anticoagulants; E11.9 Type 2 diabetes mellitus without complications; Z87.891 Personal history of nicotine dependence; Z79.4 Long term (current) use of insulin | CPT/HCPCS: 99204 ==

== ENCOUNTER 2022-03-03 10:09 | Observation (INO) | payer OTHER, MEDICARE, SELFPAY ==
[2022-03-03] VITALS (23 sets, daily range): BP systolic 111–144; BP diastolic 53–82; PULSE 81–118; RESP 16–25; TEMP 36.4–36.6; O2SAT 88–99; BMI 25.7
--- NOTE | 2022-03-03 10:10 | ECG_ITS ---
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 Measurements Intervals [place] Rate: 109 P: CO: QRS: 70 QRSD: 133 T: -81 QT: 334 QTc: 451 Interpretive Statements ATRIAL FIBRILLATION WITH RAPID VENTRICULAR RESPONSE INTRAVENTRICULAR CONDUCTION DELAY [130+ ms QRS DURATION] POSSIBLE ANTERIOR MYOCARDIAL INFARCTION , OF INDETERMINATE AGE [30 ms Q WAVE IN V3/V4, OR R < 0.2 mV IN V4] POSSIBLE INFERIOR MYOCARDIAL INFARCTION , OF INDETERMINATE AGE [30 ms Q WAVE IN II/aVF] Compared to ECG 11/26/2021 13:36:39 Intraventricular conduction delay now present Junctional rhythm no longer present Myocardial infarct finding still present Electronically Signed On 03-03-2022 18:57:05 CDT by Tito Hernandez M.D. [id number]
--- NOTE | 2022-03-03 10:13 | XRR_ITS ---
PROCEDURE INFORMATION: Exam: XR Chest Exam date and time: 03/03/2022 10:45 AM Age: 77 years old Clinical indication: Cough and dyspnea; Additional info: Dyspnea/cough TECHNIQUE: Imaging protocol: Radiologic exam of the chest. Views: 1 view. Total images: 2 COMPARISON: CR XR chest 1V portable [id number] 11/26/2021 11:45 AM FINDINGS: Lungs: Pulmonary hyperinflation, suggesting COPD. Pleural spaces: Unremarkable. No pleural effusion. No pneumothorax. Heart/Mediastinum: Prior coronary artery bypass grafting. Bones/joints: Spinal degenerative changes are evident. XR/XR chest 1V portable [id number] IMPRESSION: 1. Pulmonary hyperinflation, suggesting COPD. 2. No acute cardiopulmonary process.
[2022-03-03 10:34] LABS: Basophils % 0.2 %; Eosinophils % 0.3 %; Hematocrit 36.1 % (42.0-52.0); Hemoglobin 11.4 g/dL (11.7-16.6); Lymphocytes # 1.3 10^3/uL (0.8-4.8); Lymphocytes % 13.3 %; Mean Corpuscular HGB Conc 31.6 g/dL (30.0-36.0); Mean Corpuscular Hemoglobin 30.4 pg (28.0-34.0); Mean Corpuscular Volume 96.3 fl (80-94); Mean Platelet Volume 12.2 fL (7.4-10.4); Monocytes # 1.1 10^3/uL (0.2-0.9); Neutrophils # 7.39 10^3/uL (1.8-7.7); Nucleated Red Blood Cells % 0 %; Platelet Count 167 10^3/cmm (130-400); Red Blood Count 3.75 10^6/uL (4.1-5.3); Red Cell Distribution Width 15.6 % (12.1-15.1); White Blood Count 10.1 10^3/uL (4.0-10.0)
--- NOTE | 2022-03-03 11:04 | W.ED.SOB ---
HPI - SOB/Dyspnea General: Chief Complaint: Shortness of Breath/Dyspnea Stated Complaint: SOB/ DIZZY/ ELEVATED HEART RATE Time Seen by Provider: 03/03/22 10:13 Source: patient Mode of arrival: EMS Limitations: no limitations History of Present Illness: HPI Narrative: 77-year-old male presents to the emergency room with complaint of dizziness elevated heart rate. He was at the [facility] this morning and was noted to be evidently hypoxic when ambulating. He denies having any chest pain he also reported that he had a rapid heart rate. On arrival here via EMS he is completely asymptomatic satting normally does have a EKG showing A. fib with a rate of 109. Patient has a known history of atrial fibrillation and COPD. MD elicited complaint: shortness of breath Pertinent past history: COPD and other (Atrial fibrillation.) Context: occurred during exertion Timing: intermittent Severity: mild Exacerbating factors: exertion Relieving factors: nothing Known history of: COPD and other (Atrial fibrillation) Associated symptoms: Deny abdominal pain, chest congestion, chest pain, cough, diaphoresis, dizziness, extremity pain, fever(s), hemoptysis, lightheadedness, myalgias, nausea, orthopnea, palpitations, paresthesias, polydipsia, polyuria, rash, sense of impending doom, syncope or vomiting Treatment prior to arrival: none Review of Systems Const: Denies: fever(s), chills, fatigue, malaise or diaphoresis ENMT: Denies: throat pain, ear or mastoid pain, nasal discharge or nasal congestion Card: Denies: chest pain, palpitations, lightheadedness, syncope or orthopnea Resp: Denies: hemoptysis or chest congestion GI: Denies: abdominal pain, nausea or vomiting : Denies: flank pain, difficulty urinating, dysuria, urinary frequency or urinary urgency Musc: Denies: extremity pain Skin/Breast: Denies: rash or pruritus Neuro: Denies: dizziness Endo: Denies: polyuria or polydipsia PFSH ED PFSH: Medical History Atrial fibrillation COPD (chronic obstructive pulmonary disease) Coronary artery disease Diabetes mellitus HTN (hypertension) Surgical History 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 Family History Mother Stroke Denies family history of Diabetes CAD (coronary artery disease) Clotting disorder Dementia Social History Smoking and tobacco status: light tobacco smoker Quit status (tobacco): has quit using tobacco Year quit tobacco: 2016 Former quit date comment: smoked 1 pack per day x 36 years Alcohol intake: current Household members: spouse Housing: House Physical Exam Const: GENERAL APPEARANCE: cooperative and comfortable ORIENTATION/CONSCIOUSNESS: Yes awake, Yes oriented to person, Yes oriented to place and Yes oriented to time HENMT: COMMON NORMALS: normocephalic and atraumatic HEAD & SCALP: normocephalic and atraumatic Resp: COMMON NORMALS: normal respiratory effort, No retractions, No use of accessory muscles and clear to auscultation bilaterally AUSCULTATION: clear to auscultation bilaterally Cardio: COMMON NORMALS: regular rate, regular rhythm and No murmurs present (Cardio) RATE: regular rate RHYTHM: regular rhythm GI: COMMON NORMALS: Soft to palpation and No hepatosplenomegaly present AUSCULTATION: Yes normoactive bowel sounds PALPATION: Yes Soft to palpation, No Tenderness to palpation present (GI), No Guarding due to palpation present (GI) and Yes No hepatosplenomegaly present Extremity: COMMON NORMALS: normal to inspection, capillary refill normal, no clubbing, cyanosis or edema, no calf tenderness and no pedal edema Neuro: SENSORIUM/ORIENTATION: Yes oriented to person, Yes oriented to place and Yes oriented to time Skin: COMMON NORMALS: no rashes or lesions noted GENERAL SKIN EXAM: no rashes or lesions noted Course Vital Signs: Vital signs: Vital Signs Temperature 97.8 F 03/04/22 15:32 Pulse Rate 85 03/04/22 15:32 Respiratory Rate 17 03/04/22 15:32 Blood Pressure 128/65 03/04/22 15:32 Pulse Oximetry 97 03/04/22 15:32 Oxygen Delivery Me thod 03/04/22 11:12 Oxygen Flow Rate 2 03/03/22 14:30 MDM - SOB/Dyspnea Medical Decision Making A. ryan with poor rate control. Made attempts to control his rate in the emergency room however is not well controlled at this point discussed Dr. Rincon will place patient in observation to obtain rate control and adjust medications. He has had recent changes with stopping of his amiodarone and starting I believe digoxin discussed with hospitalist orders written Medical Records I reviewed the patient's medical records. Lab Data I reviewed the patient's lab results. : 03/04/22 05:16 03/04/22 05:16 Labs/Radiology: Radiology Impressions Chest X-Ray 03/03/22 10:13 IMPRESSION: 1. Pulmonary hyperinflation, suggesting COPD. 2. No acute cardiopulmonary process. ADDENDUM: 03/03/22 1112 There has been an aortic valve replacement. Laboratory Results WBC 10.1 10^3/uL (4.0-10.0) H 03/03/22 09:56 RBC 3.75 10^6/uL (4.1-5.3) L 03/03/22 09:56 Hgb 11.4 g/dL (11.7-16.6) L 03/03/22 09:56 Hct 36.1 % (42.0-52.0) L 03/03/22 09:56 MCV 96.3 fl (80-94) H 03/03/22 09:56 MCH 30.4 pg (28.0-34.0) 03/03/22 09:56 MCHC 31.6 g/dL (30.0-36.0) 03/03/22 09:56 RDW 15.6 % (12.1-15.1) H 03/03/22 09:56 Plt Count 167 10^3/cmm (130-400) 03/03/22 09:56 MPV 12.2 fL (7.4-10.4) H 03/03/22 09:56 Neut % (Auto) 73.0 % 03/03/22 09:56 Lymph % (Auto) 13.3 % 03/03/22 09:56 [place] % (Auto) 11.0 % 03/03/22 09:56 Eos % (Auto) 0.3 % 03/03/22 09:56 Baso % (Auto) 0.2 % 03/03/22 09:56 Neut # (Auto) 7.39 10^3/uL (1.8-7.7) 03/03/22 09:56 Lymph # (Auto) 1.3 10^3/uL (0.8-4.8) 03/03/22 09:56 [place] # (Auto) 1.1 10^3/uL (0.2-0.9) H 03/03/22 09:56 Eos # (Auto) 0.0 10^3/uL (0.0-0.8) 03/03/22 09:56 Baso # (Auto) 0.0 10^3/uL (0.0-0.1) 03/03/22 09:56 Nucleated RBC % (auto) 0 % 03/03/22 09:56 Nucleated RBCs # 0.0 /100WBC 03/03/22 09:56 PT 14.40 SECONDS (12.1-14.9) 03/03/22 12:00 INR 1.08 (0.8-1.2) 03/03/22 12:00 Sodium 140 mmol/L (136-145) 03/03/22 09:56 Potassium 4.7 mmol/L (3.5-5.1) 03/03/22 09:56 Chloride 101 mmol/L (98-107) 03/03/22 09:56 Carbon Dioxide 23 mmol/L (22-29) 03/03/22 09:56 Anion Gap 20.7 (5-19) H 03/03/22 09:56 BUN 13 mg/dL (8-23) 03/03/22 09:56 Creatinine 1.0 mg/dL (0.7-1.2) 03/03/22 09:56 GFR Calculation Not Reportable 03/03/22 09:56 Glucose 238 mg/dL (65-115) H 03/03/22 09:56 Calculated Osmolality 298 mOsm/kg (285-295) H 03/03/22 09:56 Calcium 10.2 mg/dL (8.5-10.5) 03/03/22 09:56 Magnesium 1.9 mg/dL (1.7-2.3) 03/03/22 09:56 Total Bilirubin 0.4 mg/dL (0.15-1.2) 03/03/22 09:56 AST 18 U/L (0-40) 03/03/22 09:56 ALT 9 U/L (0-41) 03/03/22 09:56 Alkaline Phosphatase 111 IU/L (40-130) 03/03/22 09:56 Troponin T Baseline 28 ng/L (0-15) H 03/03/22 09:56 Troponin T 120 Minute 24.30 ng/L (0-15) H 03/03/22 11:53 Delta Troponin T -3.70 ABS# (0-10) L 03/03/22 11:53 NT-Pro-B Natriuret Pep 619 pg/mL (0-450) H 03/03/22 09:56 Total Protein 7.5 g/dL (6.6-8.7) 03/03/22 09:56 Albumin 5.0 g/dL (3.5-5.2) 03/03/22 09:56 Globulin 2.5 g/dL (1.3-4.6) 03/03/22 09:56 TSH 2.97 uIU/mL (0.27-4.20) 03/03/22 09:56 Digoxin 0.5 ng/mL (0.6-1.2) L 03/03/22 12:00 Discharge Plan Discharge Patient Disposition: Placed in Observation Admit Provider: Chaz Low Clinical Impression: Atrial fibrillation, Moderate aortic stenosis, Ischemic cardiomyopathy, Diabetes mellitus, Hypoxia Discharge Diet: Diabetic Discharge Activity: Increase activity as tolerated Coding Level of Care Code 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
[2022-03-03 11:15] LABS: Troponin(5th) Baseline 28 ng/L (0-15)
[2022-03-03 11:19] LABS: Alanine Aminotransferase 9 U/L (0-41); Alkaline Phosphatase 111 IU/L (40-130); Anion Gap 20.7 (5-19); Aspartate Amino Transferase 18 U/L (0-40); Blood Urea Nitrogen 13 mg/dL (8-23); Calcium 10.2 mg/dL (8.5-10.5); Carbon Dioxide 23 mmol/L (22-29); Chloride 101 mmol/L (98-107); Globulin 2.5 g/dL (1.3-4.6); Glucose 238 mg/dL (65-115); NT Pro B Type Natriuretic Pept 619 pg/mL (0-450); Osmolality Calculated 298 mOsm/kg (285-295); Potassium 4.7 mmol/L (3.5-5.1); Sodium 140 mmol/L (136-145); Total Bilirubin 0.4 mg/dL (0.15-1.2); Total Protein 7.5 g/dL (6.6-8.7)
[2022-03-03] MEDS: metoprolol succinate ER (24 HR) 25 mg Tablet PO (12:09)
--- NOTE | 2022-03-03 12:13 | ECG_ITS ---
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 Measurements Intervals [place] Rate: 82 P: -89 CA: 174 QRS: 71 QRSD: 109 T: 124 QT: 359 QTc: 419 Interpretive Statements ECTOPIC ATRIAL RHYTHM ANTEROSEPTAL MYOCARDIAL INFARCTION , OF INDETERMINATE AGE [40+ ms Q WAVE IN V1-V4] MODERATE T-WAVE ABNORMALITY, CONSIDER INFERIOR ISCHEMIA [-0.1+ mV T-WAVE IN II/aVF] Compared to ECG 03/03/2022 10:17:50 Ectopic atrial rhythm now present T-wave abnormality now present Possible ischemia now present Atrial fibrillation no longer present Intraventricular conduction delay no longer present Myocardial infarct finding still present Electronically Signed On 03-03-2022 19:01:24 CDT by Tito Hernandez M.D. [id number]
[2022-03-03 12:23] LABS: Digoxin 0.5 ng/mL (0.6-1.2)
--- NOTE | 2022-03-03 12:27 | PC.PHAR ---
PT UNABLE TO VERIFY HOME MEDICATIONS - UNABLE TO VERIFY MEDICATIONS AND AGENCY PT USES FOR HOME HEALTH - [facility] AGENCY - [facility] RECORDS SHOW [facility]'S ELIQUIS IS SUSPENDED AND PT WAS PUT ON DIGOXIN 125MCG ONCE DAILY
[2022-03-03 12:33] LABS: Magnesium 1.9 mg/dL (1.7-2.3); Thyroid Stimulating Hormone 2.97 uIU/mL (0.27-4.20)
--- NOTE | 2022-03-03 12:51 | PM.HP ---
Providers/Chief Complaint Admitting Physician: Chaz Low MD Primary Care Provider: Paola Moore MD Chief Complaint: SOB/ DIZZY/ ELEVATED HEART RATE History of Present Illness Anuj Irving is a 77 year old male who presents to the hospital from his [facility] care provider [facility] the [facility] with concerns of low oxygen level and high heart rate. He reports he went in for regular follow-up today, and this was noticed. He reports he really has not had any symptoms. He has a past history of atrial fibrillation, and in November his medication was changed somewhat secondary to an inadvertent overdose of beta-olivia and at that time he was bradycardic. It appears from reviewing his records that he has paroxysmal atrial fibrillation. It appears he is off anticoagulation secondary to significant GI bleeding requiring transfusion where he was found to have a gastric ulcer. It sounds like this was in November or December. He reports no chest pain or shortness of breath. He reports he gets a little winded when he walks. Recent fever or cough. No blood in stool or black or tarry stool. The emergency department they noted that he presented with atrial fibrillation with rapid ventricular rate. With ambulation his heart rate went up significantly, and he would become hypoxic. Patient had little symptoms with this. Review of Systems General: Reports: 10 or more systems reviewed and unremarkable except in HPI and below Const: Denies: fever(s) or chills Eyes: Denies: change in vision ENMT: Denies: throat pain Card: Denies: chest pain or swelling of feet/ankles Resp: Denies: dyspnea GI: Denies: abdominal pain, nausea, vomiting, hematemesis, hematochezia or melena : Denies: flank pain Musc: Denies: neck pain Skin/Breast: Denies: rash Neuro: Denies: headache(s) or dizziness Psych: Denies: anxiety or depression Endo: Denies: polyuria Marvel/Lymph: Denies: easy bruising All/Imm: Denies: urticaria Medications/Allergies Home Medications Medication Instructions Recorded Confirmed Last Taken Type albuterol sulfate 90 mcg/actuation 2 puff inhalation Q4H PRN 07/12/21 12/23/21 Unknown History aerosol inhaler Shortness Of Breath apixaban 5 mg tablet (Eliquis) 5 mg PO BID 07/12/21 12/23/21 08/18/21 06:00 History atorvastatin 80 mg tablet 80 mg PO QPM 07/12/21 12/23/21 08/18/21 06:00 History cholecalciferol (vitamin D3) 25 25 mcg PO DAILY 07/12/21 12/23/21 08/18/21 06:00 History mcg (1,000 unit) capsule (Vitamin D3) docusate sodium 100 mg capsule 100 - 200 mg PO DAILY PRN 07/12/21 12/23/21 07/11/21 History Constipation insulin glargine 100 unit/mL (3 15 unit SUBCUT BID@0630,1830 07/12/21 12/23/21 11/26/21 History mL) subcutaneous pen (Lantus Solostar U-100 Insulin) lisinopril 10 mg tablet 5 mg PO DAILY 07/12/21 12/23/21 08/18/21 06:00 History metformin 1,000 mg tablet 1,000 mg PO BID 07/12/21 12/23/21 08/18/21 06:00 History multivitamin 1 tab PO DAILY 07/12/21 12/23/21 08/18/21 06:00 History omeprazole 40 mg capsule,delayed 40 mg PO BID 07/12/21 12/23/21 08/18/21 06:00 History release carboxymethylcellulose sodium 1 % 1 drp ophthalmic (eye) BID PRN Dry 11/26/21 12/23/21 Unknown History eye liquid gel drops (Refresh Eye(S) Liquigel) ferrous gluconate 324 mg (38 mg 324 mg PO BID 11/26/21 12/23/21 Unknown History iron) tablet fluticasone 100 mcg-salmeterol 50 1 inh inhalation BID 11/26/21 12/23/21 Unknown History mcg/dose blistr powdr for inhalation (Advair Diskus) furosemide 40 mg tablet (Lasix) 40 mg PO QAM 11/26/21 12/23/21 Unknown History glipizide 10 mg tablet 20 mg PO BID 11/26/21 12/23/21 Unknown History ipratropium 20 mcg-albuterol 100 1 puff inhalation Q6H PRN 11/26/21 12/23/21 Unknown History mcg/actuation mist for inhalation Shortness Of Breath prednisolone acetate 1 % eye 1 drp ophthalmic (eye) BID 11/26/21 12/23/21 Unknown History drops,suspension digoxin 125 mcg (0.125 mg) tablet 125 mcg PO DAILY 03/03/22 03/03/22 Unknown History Allergies Allergy/AdvReac Type Severity Reaction Status Date / Time No Known Allergies Allergy Verified 11/26/21 12:51 PFSH Acute PFSH: Medical History Atrial fibrillation COPD (chronic obstructive pulmonary disease) Coronary artery disease Diabetes mellitus HTN (hypertension) Surgical History 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 Family History Mother Stroke Denies family history of Diabetes CAD (coronary artery disease) Clotting disorder Dementia Social History (Updated 03/03/22 @ 12:55 by Chaz Low MD) Smoking and tobacco status: light tobacco smoker Quit status (tobacco): has quit using tobacco Year quit tobacco: 2016 Former quit date comment: smoked 1 pack per day x 36 years Alcohol intake: current Household members: spouse Housing: House Vitals/I&O/Wt Last Vital Signs Temp 97.9 F 03/03/22 10:26 Pulse 118 H 03/03/22 10:45 Resp 18 03/03/22 10:45 BP 130/68 03/03/22 10:45 Pulse Ox 96 03/03/22 11:23 O2 Del Method 03/03/22 10:45 O2 Flow Rate 2 03/03/22 11:23 Weight last 48 hrs Weight 74.389 kg Physical Exam Narrative: White male, no distress HEENT: Pupils equally round. Oropharynx clear. Neck is supple no lymphadenopathy or thyromegaly Cardiovascular irregular, with current controlled rate. 2/6 systolic murmur Lungs a few faint wheezes on expiration bilaterally Abdomen is soft nontender positive bowel sounds. No obvious organomegaly exams deferred Extremities no cyanosis clubbing. Trace edema. Skin no rash Neuro no obvious focal deficits Data : 03/03/22 09:56 03/03/22 09:56 Other Labs: Initial EKG demonstrates atrial fibrillation with rapid ventricular rate, poor R wave progression and some T wave inversion inferior leads. Chest x-ray shows no infiltrate, consistent with COPD Previous echo in June 2021 demonstrated an EF of 35%, mild mitral regurgitation and moderate aortic stenosis LFTs are normal Troponin 28 with repeat of 24 BNP 619, less elevated than previous numbers TSH normal Digoxin level 0.5 Magnesium level 1.9 Urine may demonstrated baseline rhythm, 98 with frequent supraventricular beats and short runs of paroxysmal atrial tachycardia. No atrial fibrillation was found on this. There was occasional short runs of nonsustained V. tach, bigeminy and trigeminy. No bradycardia was noted. A&P Assessment and plan (1) Atrial fibrillation: It appears patient has paroxysmal atrial fibrillation. His pickle pumper at the [facility] I believe took him off his amiodarone and put him on digoxin for rate control It does not appear he is on any anticoagulation currently. I think this is likely secondary to GI bleed and significant anemia with gastric ulcer that happened rather recently. He has received metoprolol extended release 25 mg in the emergency department. I think this is a good adjunct to add for rate control of his atrial fibrillation. We will plan on continuing this daily. TSH and magnesium level has been checked and normal. Monitor overnight for any bradycardia as this has been an issue in the past during an inadvertent beta-olivia overdose. If does well plan discharge tomorrow. Echocardiogram, to check status of aortic stenosis. Status: Acute (2) Hypoxia: They have noticed hypoxia with ambulation when heart rate increases. I suspect he will need home oxygen. I believe a home oxygen evaluation has already been done. It is not surprising that his oxygen level drops with ambulation considering his ejection fraction is 35%, he has moderate aortic stenosis, probable moderate to severe COPD. I do not suspect any other cause currently Status: Acute (3) Moderate aortic stenosis: Repeat echocardiogram Status: Acute (4) Ischemic cardiomyopathy: History of ischemic cardiomyopathy with history of porcine mitral valve replacement, coronary artery bypass grafting in the past. Last EF is 35%. He appears well compensated currently without evidence of CHF. 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
[2022-03-03 13:57] LABS: INR 1.08 (0.8-1.2)
--- NOTE | 2022-03-03 15:01 | PC.NURSE ---
Patient report called to VANE Schuster for patient admitting to 250.2. Patient remains a/o, vss, without c/o at time of discharge.
--- NOTE | 2022-03-03 16:34 | USCV_ITS ---
Anuj Irving Age: 77 Gender: M : 1945 Exam Date: 03/03/2022 16:41 Ordering Phys: Chaz Low MD Technologist: DIGNA [place] [facility] [place]: A FIB, AORTIC STENOSIS BP: 139 / 68 HR: 83 Rhythm: Atrial fibrillation Technical Quality: Adequate MEASUREMENTS (Male / Female) Normal Values 2D ECHO LV Diastolic Diameter PLAX 5.1 cm 4.2 - 5.9 / 3.9 - 5.3 cm LV Systolic Diameter PLAX 4.2 cm IVS Diastolic Thickness 1.3 cm 0.6 - 1.0 / 0.6 - 0.9 cm IVS Systolic Thickness 1.3 cm LVPW Diastolic Thickness 1.2 cm 0.6 - 1.0 / 0.6 - 0.9 cm LVPW Systolic Thickness 1.3 cm LVOT Diameter 2.0 cm LV Ejection Fraction 2D Teich 37.1 % LV Ejection Fraction MOD 2C 20.9 % LV Ejection Fraction 2C AL 21.9 % LA Diameter 3.7 cm LA Width 4.2 cm LA Height 5.1 cm RA Width 3.6 cm RA Height 5.0 cm Aorta at Sinotubular Diameter 2.4 cm IVC Diameter 1.3 cm M-MODE Aortic Annulus Diameter 2.0 cm LA Ao Ratio MM 1.7 MV E Point Septal Separation 0.9 cm DOPPLER AV Peak Velocity 219.7 cm/s LVOT Peak Velocity 133.0 cm/s AV Area Cont Eq vti 1.8 cm squared AV Area Cont Eq pk 1.9 cm squared MV Peak Velocity 183.0 cm/s MV Area PHT 4.8 cm squared Mitral E to A Ratio 2.7 MV E' Velocity 76.5 cm/s Mitral E to MV E' Ratio 18.8 Mitral E to LV E' Lateral Ratio 17.3 Mitral E to LV E' Septal Ratio 21.0 TR Peak Velocity 334.2 cm/s TR Peak Gradient 44.7 mmHg TR Mean Velocity 271.5 cm/s TR Mean Gradient 31.1 mmHg TR Velocity Time Integral 125.6 cm TV Peak E Velocity 57.0 cm/s Right Atrial Pressure 3.0 mmHg Pulmonary Artery Systolic Pressu 47.7 mmHg PV Peak Velocity 109.0 cm/s RV Acceleration Time 0.1 s RV Ejection Time 0.3 s RV AcT/ET 0.3 FINDINGS Left Ventricle Normal left ventricular cavity size. Mildly increased left ventricular wall thickness. Moderately decreased left ventricular systolic function. Left ventricular ejection fraction is estimated at 35-40%. There is severe hypokinesis of mid to apical inferoseptal, mid to apical inferior , apical anterior, apical lateral and apical mcrae. Abnormal septal motion consistent with conduction abnormality. Right Ventricle Normal right ventricular size and systolic function. RVSP could not be calculated due to incomplete tricuspid regurgitation velocity profile. Right Atrium Normal right atrial size. Left Atrium Mildly increased left atrial size. Mitral Valve Well seated and normal functioning bioprosthetic mitral valve. Prosthetic mitral valve mean gradient is 4.8 mmHg. Trace to mild mitral regurgitation. Aortic Valve Aortic valve not well visualized. Visually appears to be moderately stenotic. Mild aortic valve stenosis by continuity equation peak velocity 2.1 m/s, peak gradient 19 mm Hg, mean gradient 9.9 mmHg, YEHUDA 1.8 cm squared. Mild aortic valve regurgitation. Tricuspid Valve Structurally normal tricuspid valve. No tricuspid valve stenosis. Mild tricuspid valve regurgitation. Pulmonic Valve Pulmonic valve not well visualized. No pulmonary valve stenosis. Trace pulmonary valve regurgitation. Pericardium No pericardial effusion. Aorta Normal size aortic root. IVC Normal IVC dimension with >50% respiratory change of the inferior vena cava. CONCLUSIONS 1. Normal left ventricular cavity size. Mildly increased left ventricular wall thickness. Moderately decreased left ventricular systolic function. Left ventricular ejection fraction is estimated at 35-40%. There is severe hypokinesis of mid to apical inferoseptal, mid to apical inferior , apical anterior, apical lateral and apical mcrae. 2. Well seated and normal functioning bioprosthetic mitral valve. Prosthetic mitral valve mean gradient is 4.8 mmHg. Trace to mild mitral regurgitation. 3. Visually appears to be moderately stenotic. Mild aortic valve stenosis by continuity equation peak velocity 2.1 m/s, peak gradient 19 mm Hg, mean gradient 9.9 mmHg, YEHUDA 1.8 cm squared. Mild aortic valve regurgitation. 4. Study was technically difficult. Optiosn was used per protocol. Miracle Cash MD (Electronically Signed) Final Date: 04 March 2022 19:49 S
[2022-03-03 17:18] LABS: Troponin 5 6HR 25.27 ng/L (0-15)
--- NOTE | 2022-03-03 17:19 | ECG_ITS ---
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 Measurements Intervals [place] Rate: 92 P: -64 DC: 176 QRS: 61 QRSD: 112 T: 92 QT: 352 QTc: 437 Interpretive Statements ECTOPIC ATRIAL RHYTHM WITH OCCASIONAL VENTRICULAR PREMATURE COMPLEXES ANTEROSEPTAL MYOCARDIAL INFARCTION , OF INDETERMINATE AGE [40+ ms Q WAVE IN V1-V4] Compared to ECG 03/03/2022 12:07:37 Ventricular premature complex(es) now present T-wave abnormality no longer present Possible ischemia no longer present Myocardial infarct finding still present Electronically Signed On 03-03-2022 18:58:55 CDT by Tito Hernandez M.D. [id number]
[2022-03-03 17:21] LABS: Troponin 5 6HR Delta -2.73 ng/L (0-12)
[2022-03-03] MEDS: perflutren protein-a microsphr 0.22 mg/mL SDV 3 mL IV (17:28)
[2022-03-03 17:46] LABS: Glucose Point of Care 139 mg/dL (70-110)
[2022-03-03] MEDS: enoxaparin 40 mg/0.4 mL Syringe SUBCUT (18:04)
[2022-03-03] MEDS: pantoprazole DR 40 mg Tablet PO (18:05)
[2022-03-03 20:17] LABS: Glucose Point of Care 297 mg/dL (70-110)
[2022-03-03] MEDS: insulin lispro 100 unit/1 mL SUBCUT (20:28)
[2022-03-03] MEDS: insulin glargine 100 units/1 mL 15 UNIT SUBCUT (20:29)
[2022-03-03] MEDS: budesonide 0.5 mg/2 mL Neb INHALATION (20:44)
[2022-03-03] MEDS: acetaminophen 325 mg Tablet 650 MG PO (21:45)
[2022-03-04] VITALS (7 sets, daily range): BP systolic 128–132; BP diastolic 62–70; PULSE 74–86; RESP 16–18; TEMP 36.6–36.7; O2SAT 95–97
[2022-03-04] MEDS: FUROsemide 40 mg Tablet PO (05:28)
[2022-03-04 05:50] LABS: Basophils % 0.1 %; Eosinophils # 0.1 10^3/uL (0.0-0.8); Eosinophils % 0.6 %; Hematocrit 33.1 % (42.0-52.0); Hemoglobin 10.5 g/dL (11.7-16.6); Lymphocytes # 1.2 10^3/uL (0.8-4.8); Lymphocytes % 11.9 %; Mean Corpuscular HGB Conc 31.7 g/dL (30.0-36.0); Mean Corpuscular Hemoglobin 30.2 pg (28.0-34.0); Mean Corpuscular Volume 95.1 fl (80-94); Mean Platelet Volume 11.9 fL (7.4-10.4); Monocytes # 1.3 10^3/uL (0.2-0.9); Monocytes % 13.1 %; Neutrophils # 7.16 10^3/uL (1.8-7.7); Neutrophils % 72.8 %; Nucleated Red Blood Cells % 0 %; Platelet Count 158 10^3/cmm (130-400); Red Blood Count 3.48 10^6/uL (4.1-5.3); Red Cell Distribution Width 15.6 % (12.1-15.1); White Blood Count 9.8 10^3/uL (4.0-10.0)
[2022-03-04 06:14] LABS: Alanine Aminotransferase 8 U/L (0-41); Albumin Level 4.4 g/dL (3.5-5.2); Alkaline Phosphatase 99 IU/L (40-130); Anion Gap 14.1 (5-19); Aspartate Amino Transferase 16 U/L (0-40); Blood Urea Nitrogen 14 mg/dL (8-23); Calcium 9.8 mg/dL (8.5-10.5); Carbon Dioxide 28 mmol/L (22-29); Chloride 102 mmol/L (98-107); Globulin 2.3 g/dL (1.3-4.6); Glucose 100 mg/dL (65-115); Magnesium 2.1 mg/dL (1.7-2.3); Osmolality Calculated 291 mOsm/kg (285-295); Potassium 4.1 mmol/L (3.5-5.1); Sodium 140 mmol/L (136-145); Total Bilirubin 0.4 mg/dL (0.15-1.2); Total Protein 6.7 g/dL (6.6-8.7)
[2022-03-04 06:32] LABS: Glucose Point of Care 123 mg/dL (70-110)
[2022-03-04] MEDS: insulin glargine 100 units/1 mL 15 UNIT SUBCUT (07:55)
[2022-03-04] MEDS: pantoprazole DR 40 mg Tablet PO (07:56)
[2022-03-04] MEDS: metoprolol succinate ER (24 HR) 25 mg Tablet PO (07:57)
[2022-03-04] MEDS: digoxin 125 mcg Tablet PO (07:57)
[2022-03-04] MEDS: lisinopril 5 mg Tablet PO (07:58)
[2022-03-04 11:03] LABS: Glucose Point of Care 341 mg/dL (70-110)
--- NOTE | 2022-03-04 11:32 | PC.CHAP ---
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 utility locate technician visit [] Patient/Family/Request visit [] Outpatient visit [] Follow-up visit [] Physician referral [] Code/Alert [x] Routine visit [] Staff referral [] Actively dying [] Patient sleeping [] Family support [] [] Out of room [] Palliative care [] [x] Receiving care in room [] Pre-surgical visit [] Trauma [] Long length of stay [] ICU visit [] Other: Relational/Emotional Strength [] Patient feels connected with others/family/visitors/staff [] Distress [] Loneliness/isolation [] Abandonment Spirituality of Patient [] Person of Laxmi [] Attends Temple of their Laxmi [] Believes in Prayer [] Reads Bible or Holiness materials [] There are Spiritual issues to be addressed Radio Disc Jockey Interventions [] Prayer [] Active listening [] Non-anxious presence [] Spiritual/emotional support [] Crisis/trauma care [] Spiritual counseling [] Bereavement support [] Provided bereavement packet [] Provided Bible/devotional materials [] Provided toy/stuffed animal, coloring book to patient or family member [] Provided Communion [] Anointing/[place] [] Salvation [] Completed spiritual assessment [] Other: Impact on Illness or Injury [] Angry [] Fearful [] Anxious [] Often cries [] Exhaustion [] Unable to work [] Unable to attend yazidism [] Unable to walk/stand [] Unable to read [] Unable to drive [] Unable to eat/drink [] Unable to sleep [] Unable to be with family [] Patient intubated [] Other: Summary Time spent with patient
--- NOTE | 2022-03-04 11:40 | PM.DCS ---
Discharge Providers Date of Admission: 03/03/22 13:05 Date of Discharge: March 04, 2022 Attending Provider at Admission: Chaz Low MD Attending Provider at Discharge: Chaz Low MD Primary Care Provider: Paola Moore MD Diagnoses at Discharge Discharge Diagnosis (1) Atrial fibrillation: Status: Acute (2) Hypoxia: Status: Acute (3) Moderate aortic stenosis: Status: Acute (4) Ischemic cardiomyopathy: Status: Acute (5) Diabetes mellitus: Status: Acute Reason for Visit Reason for Visit: SOB/ DIZZY/ ELEVATED HEART RATE Hospital Course Hospital Course Anuj reports he is feeling good this morning. No palpitations or chest discomfort overnight. Does not really feel short of breath. Patient was admitted yesterday with atrial fibrillation with rapid ventricular rate, decreased oxygen saturation with ambulation. Metoprolol 25 mg was added to his digoxin. He tolerated this well and his heart rate was controlled throughout the night. Based upon a home oxygen evaluation done yesterday qualifies for 2 L of oxygen. This is notable with exertion, and he does not seem to require this at rest. Therefore initially as the patient desires to be discharged quickly he can be discharged without oxygen during transport. An echocardiogram was performed during his hospital stay demonstrating aortic stenosis, diminished EF around 35%, and no real changes from previous echo. 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 There was some confusion regarding his Eliquis and whether he was still taking this. It was not resolved on discharge. I instructed the patient to resume his home medications. This will be addressed at his follow-up in 3 to 5 days. Physical Exam Narrative: White male, no distress HEENT: Pupils equally round. Oropharynx clear. Neck is supple no lymphadenopathy or thyromegaly Cardiovascular irregular, with current controlled rate. 2/6 systolic murmur Lungs a few faint wheezes on expiration bilaterally Abdomen is soft nontender positive bowel sounds. No obvious organomegaly exams deferred Extremities no cyanosis clubbing. Trace edema. Skin no rash Neuro no obvious focal deficits Discharge Data Studies Completed and Pending Completed Studies During Hospitalization Category Date Time Status XR chest 1V portable [id number] Stat Exams 03/03/22 10:13 Completed Pending at discharge Category Date Time Status CV. echo wo/w contrast [id number] Routine Ultrasound 03/03/22 16:34 Taken Radiology Impressions Chest X-Ray 03/03/22 10:13 IMPRESSION: 1. Pulmonary hyperinflation, suggesting COPD. 2. No acute cardiopulmonary process. ADDENDUM: 03/03/22 1112 There has been an aortic valve replacement. Laboratory Results WBC 9.8 10^3/uL (4.0-10.0) 03/04/22 05:16 RBC 3.48 10^6/uL (4.1-5.3) L 03/04/22 05:16 Hgb 10.5 g/dL (11.7-16.6) L 03/04/22 05:16 Hct 33.1 % (42.0-52.0) L 03/04/22 05:16 MCV 95.1 fl (80-94) H 03/04/22 05:16 MCH 30.2 pg (28.0-34.0) 03/04/22 05:16 MCHC 31.7 g/dL (30.0-36.0) 03/04/22 05:16 RDW 15.6 % (12.1-15.1) H 03/04/22 05:16 Plt Count 158 10^3/cmm (130-400) 03/04/22 05:16 MPV 11.9 fL (7.4-10.4) H 03/04/22 05:16 Neut % (Auto) 72.8 % 03/04/22 05:16 Lymph % (Auto) 11.9 % 03/04/22 05:16 [place] % (Auto) 13.1 % 03/04/22 05:16 Eos % (Auto) 0.6 % 03/04/22 05:16 Baso % (Auto) 0.1 % 03/04/22 05:16 Neut # (Auto) 7.16 10^3/uL (1.8-7.7) 03/04/22 05:16 Lymph # (Auto) 1.2 10^3/uL (0.8-4.8) 03/04/22 05:16 [place] # (Auto) 1.3 10^3/uL (0.2-0.9) H 03/04/22 05:16 Eos # (Auto) 0.1 10^3/uL (0.0-0.8) 03/04/22 05:16 Baso # (Auto) 0.0 10^3/uL (0.0-0.1) 03/04/22 05:16 Nucleated RBC % (auto) 0 % 03/04/22 05:16 Nucleated RBCs # 0.0 /100WBC 03/04/22 05:16 PT 14.40 SECONDS (12.1-14.9) 03/03/22 12:00 INR 1.08 (0.8-1.2) 03/03/22 12:00 Sodium 140 mmol/L (136-145) 03/04/22 05:16 Potassium 4.1 mmol/L (3.5-5.1) 03/04/22 05:16 Chloride 102 mmol/L (98-107) 03/04/22 05:16 Carbon Dioxide 28 mmol/L (22-29) 03/04/22 05:16 Anion Gap 14.1 (5-19) 03/04/22 05:16 BUN 14 mg/dL (8-23) 03/04/22 05:16 Creatinine 0.9 mg/dL (0.7-1.2) 03/04/22 05:16 GFR Calculation Not Reportable 03/04/22 05:16 Glucose 100 mg/dL (65-115) 03/04/22 05:16 POC Glucose 341 mg/dL (70-110) H 03/04/22 10:52 Calculated Osmolality 291 mOsm/kg (285-295) 03/04/22 05:16 Calcium 9.8 mg/dL (8.5-10.5) 03/04/22 05:16 Magnesium 2.1 mg/dL (1.7-2.3) 03/04/22 05:16 Total Bilirubin 0.4 mg/dL (0.15-1.2) 03/04/22 05:16 AST 16 U/L (0-40) 03/04/22 05:16 ALT 8 U/L (0-41) 03/04/22 05:16 Alkaline Phosphatase 99 IU/L (40-130) 03/04/22 05:16 Troponin T Baseline 28 ng/L (0-15) H 03/03/22 09:56 Troponin T 120 Minute 24.30 ng/L (0-15) H 03/03/22 11:53 Delta Troponin T -3.70 ABS# (0-10) L 03/03/22 11:53 Troponin T Hi Sens 6Hr 25.27 ng/L (0-15) H 03/03/22 16:03 Troponin T Hi Sens 6Hr Delta -2.73 ng/L (0-12) L 03/03/22 16:03 NT-Pro-B Natriuret Pep 619 pg/mL (0-450) H 03/03/22 09:56 Total Protein 6.7 g/dL (6.6-8.7) 03/04/22 05:16 Albumin 4.4 g/dL (3.5-5.2) 03/04/22 05:16 Globulin 2.3 g/dL (1.3-4.6) 03/04/22 05:16 TSH 2.97 uIU/mL (0.27-4.20) 03/03/22 09:56 Digoxin 0.5 ng/mL (0.6-1.2) L 03/03/22 12:00 Vitals Last Vital Signs Temp 97.8 F 03/04/22 11:12 Pulse 85 03/04/22 11:12 Resp 17 03/04/22 11:12 BP 128/65 03/04/22 11:12 Pulse Ox 97 03/04/22 11:12 O2 Del Method 03/04/22 11:12 O2 Flow Rate 2 03/03/22 14:30 Discharge Plan Discharge Patient Disposition: Home Condition: Stable Prescriptions: New metoprolol succinate 25 mg Tablet Extended Release 24 Hr 25 mg PO DAILY Qty: 30 0RF Continued multivitamin Tablet 1 tab PO DAILY omeprazole 40 mg Capsule,Delayed Release(Dr/Ec) 40 mg PO BID metformin 1,000 mg Tablet 1,000 mg PO BID lisinopril 10 mg Tablet 5 mg PO DAILY docusate sodium 100 mg Capsule 100 - 200 mg PO DAILY PRN (Reason: Constipation) albuterol sulfate 90 mcg/actuation Hfa Aerosol Inhaler 2 puff INHALATION Q4H PRN (Reason: Shortness Of Breath) Eliquis 5 mg Tablet 5 mg PO BID atorvastatin 80 mg Tablet 80 mg PO QPM cholecalciferol (vitamin D3) [Vitamin D3] 25 mcg (1,000 unit) Capsule 25 mcg PO DAILY insulin glargine [Lantus Solostar U-100 Insulin] 100 unit/mL (3 mL) Insulin Pen 15 unit SUBCUT BID@0630,1830 furosemide [Lasix] 40 mg Tablet 40 mg PO QAM glipizide 10 mg Tablet 20 mg PO BID prednisolone acetate 1 % Drops,Suspension 1 drp ophthalmic (eye) BID Rx Instructions: left eye fluticasone propion-salmeterol [Advair Diskus] 100-50 mcg/dose Blister With Device 1 inh INHALATION BID carboxymethylcellulose sodium [Refresh Liquigel] 1 % Drops, Liquid Gel 1 drp OPHTHALMIC (EYE) BID PRN (Reason: Dry Eye(S)) ferrous gluconate 324 mg (38 mg iron) Tablet 324 mg PO BID ipratropium-albuterol 20-100 mcg/actuation Mist 1 puff INHALATION Q6H PRN (Reason: Shortness Of Breath) digoxin 125 mcg (0.125 mg) Tablet 125 mcg PO DAILY Discharge Orders: Discharge Order (Routine); Ordered 03/04/22 Ordered By: Chaz Low Other Ambulatory Orders: DME: Oxygen (Order) Location: None Selected Ordered By: Chaz Low Referrals: Paola Moore MD [Primary Care Provider] - 4-7 days Discharge Diet: Diabetic Discharge Activity: Increase activity as tolerated Patient Instructions: Opioid Safety Activity Restrictions/Additional Instructions: Ask your [facility] physician whether you supposed to be taking Eliquis. This may have been discontinued Home oxygen evaluation prior to discharge New medicine is Toprol-XL 25 mg once daily When seen by your primary care provider, see if glipizide dose should be lowered as this could potentially cause hypoglycemia with increasing age Discharge Attestations Time Spent in Discharge Care*: greater than 30 min Quality Metrics Clinical Quality Measures [ No reported AMI, CVA or VTE this stay] Coding Level of Care Code Acute Chg FW DC note Diagnoses Atrial fibrillation I48.91 Hypoxia R09.02 Moderate aortic stenosis I35.0 Ischemic cardiomyopathy I25.5 Diabetes mellitus E11.9
[2022-03-04] MEDS: insulin lispro 100 unit/1 mL SUBCUT (12:11)
[2022-03-04] MEDS: acetaminophen 325 mg Tablet 650 MG PO (12:12)
--- NOTE | 2022-03-04 13:25 | PC.NURSE ---
Discussed discharge, medications and follow up appointments with patient. Verbalized understanding.
== END 2022-03-04 14:30 | disposition home or self-care (01) ==
LOC: ER 11:48 → MEDSURG 14:43
PROVIDERS: Admitting Provider Internal Medicine; Emergency Provider Family Medicine; PCP Family Medicine; Visit Provider Internal Medicine
DX: I48.91 Unspecified atrial fibrillation (principal); R09.02 Hypoxemia; I35.0 Nonrheumatic aortic (valve) stenosis; I25.5 Ischemic cardiomyopathy; E11.9 Type 2 diabetes mellitus without complications; Z79.01 Long term (current) use of anticoagulants; Z79.4 Long term (current) use of insulin; J44.9 Chronic obstructive pulmonary disease, unspecified; I25.10 Atherosclerotic heart disease of native coronary artery without angina pectoris; I10 Essential (primary) hypertension; Z95.1 Presence of aortocoronary bypass graft; F17.210 Nicotine dependence, cigarettes, uncomplicated
CPT/HCPCS: 36415; 36416; 71045; 80053; 80162; 82962; 83735; 83880; 84443; 84484; 85025; 85610; 93005; 93306; 94640; 94760; 96360; 96361; 96372; 99285; C8929; G0378; J1650; J1815; J7626; Q9956

== ENCOUNTER 2022-04-04 05:48 | Inpatient (IN) | payer OTHER, SELFPAY ==
[2022-04-04] VITALS (10 sets, daily range): BP systolic 136–175; BP diastolic 61–81; PULSE 81–112; RESP 21–34; TEMP 36.6–37.7; O2SAT 85–99; BMI 25.7; BMI 30.2
--- NOTE | 2022-04-04 05:55 | ECG_ITS ---
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 Measurements Intervals [place] Rate: 105 P: MD: QRS: 58 QRSD: 125 T: 71 QT: 326 QTc: 431 Interpretive Statements ATRIAL FLUTTER/TACHYCARDIA WITH RAPID VENTRICULAR RESPONSE WITH ABERRANT CONDUCTION OR VENTRICULAR PREMATURE COMPLEXES ANTEROSEPTAL MYOCARDIAL INFARCTION , OF INDETERMINATE AGE [40+ ms Q WAVE IN V1-V4] Compared to ECG 03/03/2022 17:19:06 Ectopic atrial rhythm no longer present Myocardial infarct finding still present Electronically Signed On 04-05-2022 13:21:37 CDT by Tito Hernandez M.D. [id number]
--- NOTE | 2022-04-04 05:58 | ED_ITS ---
HPI - Arrhythmia/Palpitations General: Chief Complaint: Fall Stated Complaint: WEAKNESS Time Seen by Provider: 04/04/22 05:57 Source: patient Mode of arrival: EMS History of Present Illness: 77-year-old male presents to the emergency room via EMS after a fall at home.. Patient states he fell this morning while he was on the commode he leaned forward and fell off the floor Mar he hit his head. He struck states he did not lose consciousness he just fell. He fell several hours ago he could not tell me exactly when he is normally on oxygen at home on arrival here he is hypoxic. He is awake and alert at this time he is c omplaining of shortness of breath he placed back on oxygen after arriving here. He denies any recent fever sweats chills nausea vomiting diarrhea no dysuria urgency or frequency denies abdominal or chest pain. He was early last month with Mk davis. He is currently on Eliquis. He is diabetic he is also on Lasix. He states he did take his medications last night. MD complaint: rapid heart beat Severity: moderate Arrhythmia history: atrial fibrillation Associated symptoms: Reports short of breath and syncope; Deny anxiety, cough, diaphoresis, muscle cramps, nausea, paresthesias, pre- syncope, sense of impending doom or vomiting Review of Systems Const: Denies: fever(s), chills, fatigue, malaise or diaphoresis ENMT: Denies: throat pain, ear or mastoid pain, nasal discharge or nasal congestion Card: Reports: palpitations, irregular heart rhythm, edema and syncope; Denies: chest pain or pre-syncope Resp: Denies: dyspnea, productive cough or non-productive cough GI: Reports: abdominal pain; Denies: nausea or vomiting : Denies: flank pain, difficulty urinating, dysuria, urinary frequency or urinary urgency Musc: Denies: muscle cramps Skin/Breast: Denies: rash or pruritus Psych: Denies: anxiety PFSH ED PFSH: Medical History Atrial fibrillation COPD (chronic obstructive pulmonary disease) Coronary artery disease Diabetes mellitus HTN (hypertension) Surgical History 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 Family History Mother Stroke Denies family history of Diabetes CAD (coronary artery disease) Clotting disorder Dementia Social History Smoking and tobacco status: light tobacco smoker Quit status (tobacco): has quit using tobacco Year quit tobacco: 2016 Former quit date comment: smoked 1 pack per day x 36 years Alcohol intake: current Household members: spouse Housing: House Physical Exam Const: ORIENTATION/CONSCIOUSNESS: Yes awake, Yes oriented to person, Yes oriented to place and Yes oriented to time HENMT: COMMON NORMALS: normocephalic, atraumatic and hearing grossly normal bilaterally HEAD & SCALP: normocephalic and atraumatic Resp: AUSCULTATION: crackles Laterality: bilateral and posterior Cardio: COMMON NORMALS: No murmurs present (Cardio) RATE: tachycardic RHYTHM: abnormal rhythm irregularly irregular GI: COMMON NORMALS: Soft to palpation and No hepatosplenomegaly present AUSCULTATION: Yes normoactive bowel sounds PALPATION: Yes Soft to palpation, No Tenderness to palpation present (GI), No Guarding due to palpation present (GI) and Yes No hepatosplenomegaly present Extremity: COMMON NORMALS: normal to inspection, capillary refill normal, no clubbing, cyanosis or edema, no calf tenderness and no pedal edema Neuro: SENSORIUM/ORIENTATION: Yes oriented to person, Yes oriented to place and Yes oriented to time Skin: COMMON NORMALS: no rashes or lesions noted GENERAL SKIN EXAM: no rashes or lesions noted Course Vital Signs: Vital signs: Vital Signs Temperature 99.8 F H 04/04/22 05:49 Pulse Rate 96 04/04/22 05:49 Respiratory Rate 23 H 04/04/22 05:49 Blood Pressure 148/74 04/04/22 05:49 Pulse Oximetry 85 L 04/04/22 05:49 Oxygen Delivery Me thod 04/04/22 05:49 MDM - Arrhythmia/Palpitations Medical Decision Making Congestive heart failure exacerbation along with rhabdomyolysis possible sepsis and mild acute kidney injury. We will admit the patient. He was down for quite some time he has some pretty impressive pressure ulcers developed on his knees from being on the floor last night suspect he is down longer than he is leading us to believe discussed with hospitalist orders written Medical Records I reviewed the patient's medical records. Lab Data I reviewed the patient's lab results. : 04/04/22 06:04 04/04/22 06:04 Laboratory Results WBC 14.0 10^3/uL (4.0-10.0) H 04/04/22 06:04 RBC 3.10 10^6/uL (4.1-5.3) L 04/04/22 06:04 Hgb 9.4 g/dL (11.7-16.6) L 04/04/22 06:04 Hct 28.9 % (42.0-52.0) L 04/04/22 06:04 MCV 93.2 fl (80-94) 04/04/22 06:04 MCH 30.3 pg (28.0-34.0) 04/04/22 06:04 MCHC 32.5 g/dL (30.0-36.0) 04/04/22 06:04 RDW 15.6 % (12.1-15.1) H 04/04/22 06:04 Plt Count 160 10^3/cmm (130-400) 04/04/22 06:04 MPV 12.0 fL (7.4-10.4) H 04/04/22 06:04 Neut % (Auto) 79.7 % 04/04/22 06:04 Lymph % (Auto) 2.2 % 04/04/22 06:04 [place] % (Auto) 15.8 % 04/04/22 06:04 Eos % (Auto) 0.0 % 04/04/22 06:04 Baso % (Auto) 0.1 % 04/04/22 06:04 Neut # (Auto) 11.19 10^3/uL (1.8-7.7) H 04/04/22 06:04 Lymph # (Auto) 0.3 10^3/uL (0.8-4.8) L 04/04/22 06:04 [place] # (Auto) 2.2 10^3/uL (0.2-0.9) H 04/04/22 06:04 Eos # (Auto) 0.0 10^3/uL (0.0-0.8) 04/04/22 06:04 Baso # (Auto) 0.0 10^3/uL (0.0-0.1) 04/04/22 06:04 Nucleated RBC % (auto) 0 % 04/04/22 06:04 Nucleated RBCs # 0.0 /100WBC 04/04/22 06:04 Specimen Type Arterial 04/04/22 06:22 Sample Site Radial, right 04/04/22 06:22 ABG pH 7.46 (7.35-7.45) H 04/04/22 06: ABG pCO2 31.7 mmHg (35-45) L 04/04/22 06: ABG pO2 98.3 mmHg (80.0-100.0) 04/04/22 06: ABG HCO3 22.7 mmol/L (22-26) 04/04/22: ABG O2 Saturation 99.1 04/04/22 06:22 ABG Base Excess -0.7 mmol/L (-2.0-2.0) 04/04/22 06: Lei Test Pos 04/04/22 06:22 A-a O2 Gradient 1.4 mmHg (5-10) L 04/04/22 06:22 Hematocrit 29.3 % (42-52) L 04/04/22 06:22 Hgb O2 Saturation 96.4 % (95-100) 04/04/22 06:22 Carboxyhemoglobin 2.1 %THgb (0.4-20.1) 04/04/22 06: Methemoglobin 0.7 % (0.4-1.5) 04/04/22 06:22 Total Hemoglobin 9.6 g/dL (14-18) L 04/04/22 06:22 Sodium 135.0 mmol/L (131-143) 04/04/22 06:22 Potassium 4.1 mmol/L (3.5-5.0) 04/04/22 06:22 Glucose 338.0 mg/dL (70-115) H 04/04/22 06:22 Ionized Calcium 1.1 mmol/L (1.1-1.4) 04/04/22 06:22 O2 Delivery Device Nc 04/04/22 06:22 O2 Liters/Min 3.0 % 04/04/22 06:22 Stock Parts Inspector ID [email or web address] 04/04/22 06:22 Sodium 135 mmol/L (136-145) L 04/04/22 06:04 Potassium 4.3 mmol/L (3.5-5.1) 04/04/22 06:04 Chloride 96 mmol/L (98-107) L 04/04/22 06:04 Carbon Dioxide 22 mmol/L (22-29) 04/04/22 06:04 Anion Gap 21.3 (5-19) H 04/04/22 06:04 BUN 20 mg/dL (8-23) 04/04/22 06:04 Creatinine 1.5 mg/dL (0.7-1.2) H 04/04/22 06:04 GFR Calculation Not Reportable 04/04/22 06:04 Glucose 319 mg/dL (65-115) H 04/04/22 06:04 Calculated Osmolality 295 mOsm/kg (285-295) 04/04/22 06:04 Lactic Acid 3.2 mmol/L (0.5-2.2) H 04/04/22 06:04 Calcium 9.1 mg/dL (8.5-10.5) 04/04/22 06:04 Magnesium 1.8 mg/dL (1.7-2.3) 04/04/22 06:04 Total Bilirubin 0.9 mg/dL (0.15-1.2) 04/04/22 06:04 AST 28 U/L (0-40) 04/04/22 06:04 ALT 16 U/L (0-41) 04/04/22 06:04 Alkaline Phosphatase 88 U/L (40-130) 04/04/22 06:04 Creatine Kinase 619 U/L (39-308) H* 04/04/22 06:04 Troponin T Baseline 34 ng/L (0-15) H 04/04/22 06:04 NT-Pro-B Natriuret Pep 1667 pg/mL (0-450) H 04/04/22 06:04 Total Protein 7.2 g/dL (6.6-8.7) 04/04/22 06:04 Albumin 4.2 g/dL (3.5-5.2) 04/04/22 06:04 Globulin 3.0 g/dL (1.3-4.6) 04/04/22 06:04 Lipase 47 U/L (13-60) 04/04/22 06:04 Digoxin 1.0 ng/mL (0.6-1.2) 04/04/22 06:04 Serum Ketones Negative (Negative) 04/04/22 06:45 Discharge Plan Discharge Condition: Stable Prescriptions: No Action multivitamin Tablet 1 tab PO DAILY omeprazole 40 mg Capsule,Delayed Release(Dr/Ec) 40 mg PO BID metformin 1,000 mg Tablet 1,000 mg PO BID lisinopril 10 mg Tablet 5 mg PO DAILY docusate sodium 100 mg Capsule 100 - 200 mg PO DAILY PRN (Reason: Constipation) albuterol sulfate 90 mcg/actuation Hfa Aerosol Inhaler 2 puff INHALATION Q4H PRN (Reason: Shortness Of Breath) Eliquis 5 mg Tablet 5 mg PO BID atorvastatin 80 mg Tablet 80 mg PO QPM cholecalciferol (vitamin D3) [Vitamin D3] 25 mcg (1,000 unit) Capsule 25 mcg PO DAILY insulin glargine [Lantus Solostar U-100 Insulin] 100 unit/mL (3 mL) Insulin Pen 15 unit SUBCUT BID@0630,1830 furosemide [Lasix] 40 mg Tablet 40 mg PO QAM glipizide 10 mg Tablet 20 mg PO BID prednisolone acetate 1 % Drops,Suspension 1 drp ophthalmic (eye) BID Rx Instructions: left eye fluticasone propion-salmeterol [Advair Diskus] 100-50 mcg/dose Blister With Device 1 inh INHALATION BID carboxymethylcellulose sodium [Refresh Liquigel] 1 % Drops, Liquid Gel 1 drp OPHTHALMIC (EYE) BID PRN (Reason: Dry Eye(S)) ferrous gluconate 324 mg (38 mg iron) Tablet 324 mg PO BID ipratropium-albuterol 20-100 mcg/actuation Mist 1 puff INHALATION Q6H PRN (Reason: Shortness Of Breath) digoxin 125 mcg (0.125 mg) Tablet 125 mcg PO DAILY metoprolol succinate 25 mg Tablet Extended Release 24 Hr 25 mg PO DAILY Qty: 30 0RF Referrals: Paola Moore MD [Primary Care Provider] - Coding Level of Care Code ED Field Representative for Chg Fwd Exam Detailed
--- NOTE | 2022-04-04 05:59 | XRR_ITS ---
PROCEDURE INFORMATION: Exam: XR Chest Exam date and time: 04/04/2022 6:25 AM Age: 77 years old Clinical indication: Cough and dyspnea; Additional info: Dyspnea/cough TECHNIQUE: Imaging protocol: Radiologic exam of the chest. Views: 1 view. COMPARISON: CR XR chest 1V portable [id number] 03/03/2022 10:45 AM FINDINGS: Lungs: Lungs symmetrically expanded. No consolidation. Mild basilar scarring. Pulmonary vasculature within normal limits. Pleural spaces: Unremarkable. No pleural effusion. No pneumothorax. Heart/Mediastinum: Evidence of CABG and prosthetic valve. No cardiomegaly. Bones/joints: Median sternotomy wires. XR/XR chest 1V portable [id number] IMPRESSION: No acute radiographic findings.
--- NOTE | 2022-04-04 06:01 | CTR_ITS ---
PROCEDURE INFORMATION: Exam: CT Head Without Contrast Exam date and time: 04/04/2022 6:30 AM Age: 77 years old Clinical indication: Injury or trauma; Fall; Blunt trauma (contusions or hematomas); Additional info: Fall/anti-coagulants TECHNIQUE: Imaging protocol: Computed tomography of the head without contrast. Radiation optimization: All CT scans at this facility use at least one of these dose optimization techniques: automated exposure control; mA and/or kV adjustment per patient size (includes targeted exams where dose is matched to clinical indication); or iterative reconstruction. COMPARISON: CT head wo con* [id number] 08/26/2021 2:49 PM RADIATION DOSE METRICS: Total DLP (mGy-cm): 1140.39 FINDINGS: Brain: No intracranial hemorrhage. Diffuse age related atrophy. Normal doherty-white differentiation with no evidence of edema or territorial infarct. Chronic decreased attenuation of the deep white matter is nonspecific but compatible with chronic microvascular angiopathy. No extra-axial fluid collection. Cerebral ventricles: Ventriculomegaly in the setting of atrophy, similar to prior. No hydrocephalus. Paranasal sinuses: Visualized sinuses are unremarkable. No fluid levels. Mastoid air cells: Visualized mastoid air cells are well aerated. Bones/joints: No acute fracture. Soft tissues: Unremarkable. CT/CT head wo con* [id number] IMPRESSION: 1. No acute findings. 2. Atrophy and chronic small vessel ischemic disease.
--- NOTE | 2022-04-04 06:01 | CTR_ITS ---
PROCEDURE INFORMATION: Exam: CT Cervical Spine Without Contrast Exam date and time: 04/04/2022 6:34 AM Age: 77 years old Clinical indication: Injury or trauma; Fall; Blunt trauma; Additional info: Fall/trauma TECHNIQUE: Imaging protocol: Computed tomography of the cervical spine without contrast. Radiation optimization: All CT scans at this facility use at least one of these dose optimization techniques: automated exposure control; mA and/or kV adjustment per patient size (includes targeted exams where dose is matched to clinical indication); or iterative reconstruction. COMPARISON: CT head wo con* [id number] 04/04/2022 6:30 AM RADIATION DOSE METRICS: Total DLP (mGy-cm): 201.17 FINDINGS: Bones/joints: Vertebral bodies and posterior elements intact and normally aligned. Disc space narrowing at C5 through 7 with small osteophytes. No high-grade stenosis. Lungs: No acute findings within the included lung apices. Pleural thickening on the left. Soft tissues: Unremarkable. CT/CT cervical spin wo con* [id number] IMPRESSION: 1. No acute findings. 2. Cervical spondylosis. No evidence of high-grade stenosis.
[2022-04-04 06:10] LABS: Basophils % 0.1 %; Hematocrit 28.9 % (42.0-52.0); Hemoglobin 9.4 g/dL (11.7-16.6); Lymphocytes # 0.3 10^3/uL (0.8-4.8); Lymphocytes % 2.2 %; Mean Corpuscular HGB Conc 32.5 g/dL (30.0-36.0); Mean Corpuscular Hemoglobin 30.3 pg (28.0-34.0); Mean Corpuscular Volume 93.2 fl (80-94); Monocytes # 2.2 10^3/uL (0.2-0.9); Monocytes % 15.8 %; Neutrophils # 11.19 10^3/uL (1.8-7.7); Neutrophils % 79.7 %; Nucleated Red Blood Cells % 0 %; Platelet Count 160 10^3/cmm (130-400); Red Cell Distribution Width 15.6 % (12.1-15.1)
--- NOTE | 2022-04-04 06:15 | PC.NURSE ---
patient fell some time during the night, unsure on what time or how long he lay in the floor. He states he remembers getting up to go to the bathroom and then when EMS got there. He denies pain anywhere. He has redness to both knees but denies pain. He is unsure if he hit his head. He denies any dizziness, headache. No obvious injuries noted to head. Of note his O2 sat was 84% on RA. He states he has home O2 but has not been having to wear it and checks his O2 sat daily and has been 96% on RA. His has audible crackles. He denies any increase in sob but resp are 30. No edema noted to extremities.
[2022-04-04 06:28] LABS: ABG PCO2 31.7 mmHg (35-45); ABG PH Result 7.46 (7.35-7.45); Alveolar-Arterial Oxygen Gradi 1.4 mmHg (5-10); Arterial Blood Gas Hematocrit 29.3 % (42-52); Base Excess ABG -0.7 mmol/L (-2.0-2.0); Blood Gas Allen Test Pos; Blood Gas Sample Site Radial, right; Blood Gas Sample Type Arterial; Carboxyhemoglobin 2.1 %THgb (0.4-20.1); HCO3 ABG 22.7 mmol/L (22-26); HGB O2 Sat 96.4 % (95-100); Ionized Calcium Level - ABG 1.1 mmol/L (1.1-1.4); Methemoglobin 0.7 % (0.4-1.5); Oxygen Device NC; Oxygen Saturation ABG 99.1; PO2 ABG 98.3 mmHg (80.0-100.0); Potassium Level - ABG 4.1 mmol/L (3.5-5.0); Total Hemoglobin 9.6 g/dL (14-18)
[2022-04-04 06:36] LABS: Lactic Sepsis W/Reflex 3.2 mmol/L (0.5-2.2)
[2022-04-04 06:37] LABS: Alanine Aminotransferase 16 U/L (0-41); Albumin Level 4.2 g/dL (3.5-5.2); Alkaline Phosphatase 88 U/L (40-130); Anion Gap 21.3 (5-19); Aspartate Amino Transferase 28 U/L (0-40); Blood Urea Nitrogen 20 mg/dL (8-23); Calcium 9.1 mg/dL (8.5-10.5); Carbon Dioxide 22 mmol/L (22-29); Chloride 96 mmol/L (98-107); Glucose 319 mg/dL (65-115); Lipase 47 U/L (13-60); Magnesium 1.8 mg/dL (1.7-2.3); Osmolality Calculated 295 mOsm/kg (285-295); Potassium 4.3 mmol/L (3.5-5.1); Sodium 135 mmol/L (136-145); Total Bilirubin 0.9 mg/dL (0.15-1.2); Total Protein 7.2 g/dL (6.6-8.7); Troponin(5th) Baseline 34 ng/L (0-15)
[2022-04-04 06:40] LABS: Creatine Phosphokinase 619 U/L (39-308)
[2022-04-04] MEDS: FUROsemide 10 mg/mL SDV 4mL 40 MG IVP (06:45)
[2022-04-04] MEDS: piperacillin-tazobactam 3.375 GM in sodium chloride 0.9% (plus) 50 ML IV (06:54)
[2022-04-04 07:02] LABS: NT Pro B Type Natriuretic Pept 1667 pg/mL (0-450)
--- NOTE | 2022-04-04 07:11 | PC.NURSE ---
WHILE AT DOORWAY PT IS RESTING IN BED. LAB IN ROOM OBTAINING BLOOD CULTURES. PT IS ON CONTINUOUS SPO2, NIBP, AND CM.
[2022-04-04 07:36] LABS: Ketone (Acetest) Serum Negative (Negative)
--- NOTE | 2022-04-04 07:46 | ECG_ITS ---
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 Measurements Intervals [place] Rate: 90 P: [place]: QRS: 67 QRSD: 119 T: 89 QT: 381 QTc: 467 Interpretive Statements ATRIAL FIBRILLATION ANTEROSEPTAL MYOCARDIAL INFARCTION , OF INDETERMINATE AGE [40+ ms Q WAVE IN V1-V4] Compared to ECG 04/04/2022 05:55:19 Ventricular premature complex(es) no longer present Myocardial infarct finding still present Electronically Signed On 04-05-2022 13:30:15 CDT by Tito Hernandez M.D. [id number]
[2022-04-04 07:55] LABS: Reflex Lactate Order REFLEX LACTIC ORDERD
[2022-04-04 08:56] LABS: Adenovirus Not Detected (NOT DETECT); Chlamydia Pneumoniae Not Detected (NOT DETECT); Coronavirus 229E,HKU1,NL63,OC4 Not Detected (NOT DETECT); Human Metapneumovirus Not Detected (NOT DETECT); Human Rhinovirus/Enterovirus Not Detected (NOT DETECT); Influenza A Not Detected (NOT DETECT); Influenza A H1 Not Detected (NOT DETECT); Influenza A H1-2009 Not Detected (NOT DETECT); Influenza A H3 Not Detected (NOT DETECT); Influenza B Not Detected (NOT DETECT); Mycoplasma Pneumoniae Not Detected (NOT DETECT); Parainfluenza Virus Type 1 Not Detected (NOT DETECT); Parainfluenza Virus Type 2 Not Detected (NOT DETECT); Parainfluenza Virus Type 3 Not Detected (NOT DETECT); Parainfluenza Virus Type 4 Not Detected (NOT DETECT); Respiratory Syncytial Virus A Not Detected (NOT DETECT); Respiratory Syncytial Virus B Not Detected (NOT DETECT); SARS-COV-2 Not Detected (NOT DETECT)
[2022-04-04 08:56] LABS: Lactic Acid level (Lactate) 1.2 mmol/L (0.5-2.2)
--- NOTE | 2022-04-04 09:47 | PC.PHAR ---
Addendum entered by Mariely Hernandez 04/04/22 10:13: Spoke with pt's - gave a phone number to [facility] & [facility]. I spoke with Paty and she stated the main location is closed today and may be unable to get medication list until Wednesday. Paty is supposed to call back with an update. Original Note: Pt states he uses [facility] for assistance at home with medications. Attempting to call [facility] to obtain med list
--- NOTE | 2022-04-04 11:36 | ECG_ITS ---
[facility] Test Date: 2022-04-04 Pat Name: Anuj Irving Department: Room: 277 Gender: Male [employer]: : 1945 Requested By: Raymundo Tomas Order Number: [id number] Dolly MD: Tito Hernandez M.D. Measurements Intervals Dowell Rate: 99 P: ND: QRS: 46 QRSD: 120 T: 67 QT: 351 QTc: 450 Interpretive Statements ATRIAL FIBRILLATION ANTEROSEPTAL MYOCARDIAL INFARCTION , OF INDETERMINATE AGE [40+ ms Q WAVE IN V1-V4] Compared to ECG 04/04/2022 07:46:55 No significant changes Electronically Signed On 04-05-2022 13:29:30 CDT by Tito Hernandez M.D. [id number]
[2022-04-04 14:10] LABS: Troponin 5 6HR 45.07 ng/L (0-15)
[2022-04-04 14:22] LABS: Troponin 5 6HR Delta 11.07 ng/L (0-12)
--- NOTE | 2022-04-04 16:19 | PM.HP ---
Providers/Chief Complaint Admitting Physician: Sincere Quinonez MD Primary Care Provider: Paola Moore MD Chief Complaint: WEAKNESS History of Present Illness Anuj Irving is a 77 year old male with history of A. fib on Eliquis, coronary artery bypass graft times 09/2009, hypertension, hyperlipidemia, NIDDM followed by Dr. Hernandez. Patient was in the bathroom and fell down. He does not recall the fall but states that he could not get up thereafter he had not been weak or dizzy or using a walker in the preceding time. Typically he walks fine and lives with his . was outside working in the yard so he was down for an hour or more on his own. He states his knees were injured from trying to get up off the ground she found him and called 911 Patient was hypoxic in the emergency department and started on oxygen but that did slowly improve. He denies fevers chills sweats nausea vomiting diarrhea or chest pain. He does admit to cough and dyspnea on exertion the last 3 days Of note the patient was just discharged following observation hospitalization by Dr. Low for new onset atrial fibrillation with RVR. Patient noted to have EKG showing septal ID age indeterminant and echocardiogram showing EF 35 to 40% with severe hypokinesis of the mid and apical inferoseptal and essentially apical portions of his heart. Patient has a prosthetic mitral valve and this is moderately stenotic. There is mild aortic stenosis IVC did not show volume overload on 03/03/2022. Weight that day 74.389 kg today's weight unchanged but I am not sure this was a measured weight possibly just recorded from previous Review of Systems Narrative: General no fevers chills weight gain weight loss night sweats Cardiovascular no chest pain palpitations or significant edema Respiratory positive for cough shortness of breath dyspnea on exertion last 3 days GI no nausea vomiting diarrhea constipation melena hematochezia no dysuria hematuria incontinence Neuro no seizures strokes limb weakness he did fall off the commode feeling very weak cannot give a good story why Heme no bleeding or bruising problems before he is on Eliquis Psych negative Musculoskeletal he states he does not hurt anywhere now but did hurt in the knees earlier states the injuries are from trying to get up off the ground Medications/Allergies Home Medications Medication Instructions Recorded Confirmed Last Taken Type albuterol sulfate 90 mcg/actuation 2 puff inhalation Q4H PRN 07/12/21 04/04/22 Unknown History aerosol inhaler Shortness Of Breath apixaban 5 mg tablet (Eliquis) 5 mg PO BID 07/12/21 04/04/22 08/18/21 06:00 History atorvastatin 80 mg tablet 80 mg PO QPM 07/12/21 04/04/22 08/18/21 06:00 History cholecalciferol (vitamin D3) 25 25 mcg PO DAILY 07/12/21 04/04/22 08/18/21 06:00 History mcg (1,000 unit) capsule (Vitamin D3) docusate sodium 100 mg capsule 100 - 200 mg PO DAILY PRN 07/12/21 04/04/22 07/11/21 History Constipation insulin glargine 100 unit/mL (3 15 unit SUBCUT BID@0630,1830 07/12/21 04/04/22 11/26/21 History mL) subcutaneous pen (Lantus Solostar U-100 Insulin) lisinopril 10 mg tablet 5 mg PO DAILY 07/12/21 04/04/22 08/18/21 06:00 History metformin 1,000 mg tablet 1,000 mg PO BID 07/12/21 04/04/22 08/18/21 06:00 History multivitamin 1 tab PO DAILY 07/12/21 04/04/22 08/18/21 06:00 History omeprazole 40 mg capsule,delayed 40 mg PO BID 07/12/21 04/04/22 08/18/21 06:00 History release carboxymethylcellulose sodium 1 % 1 drp ophthalmic (eye) BID PRN Dry 11/26/21 04/04/22 Unknown History eye liquid gel drops (Refresh Eye(S) Liquigel) ferrous gluconate 324 mg (38 mg 324 mg PO BID 11/26/21 04/04/22 Unknown History iron) tablet fluticasone 100 mcg-salmeterol 50 1 inh inhalation BID 11/26/21 04/04/22 Unknown History mcg/dose blistr powdr for inhalation (Advair Diskus) furosemide 40 mg tablet (Lasix) 40 mg PO QAM 11/26/21 04/04/22 Unknown History glipizide 10 mg tablet 20 mg PO BID 11/26/21 04/04/22 Unknown History ipratropium 20 mcg-albuterol 100 1 puff inhalation Q6H PRN 11/26/21 04/04/22 Unknown History mcg/actuation mist for inhalation Shortness Of Breath prednisolone acetate 1 % eye 1 drp ophthalmic (eye) BID 11/26/21 04/04/22 Unknown History drops,suspension digoxin 125 mcg (0.125 mg) tablet 125 mcg PO DAILY 03/03/22 04/04/22 Unknown History metoprolol succinate 25 mg 25 mg PO DAILY #30 tabs 03/04/22 04/04/22 Unknown Rx tablet,extended release 24 hr Allergies Allergy/AdvReac Type Severity Reaction Status Date / Time No Known Allergies Allergy Verified 11/26/21 12:51 PFSH Acute PFSH: Medical History Atrial fibrillation COPD (chronic obstructive pulmonary disease) Coronary artery disease Diabetes mellitus HTN (hypertension) Surgical History 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 Family History Mother Stroke Denies family history of Diabetes CAD (coronary artery disease) Clotting disorder Dementia Social History Smoking and tobacco status: light tobacco smoker Quit status (tobacco): has quit using tobacco Year quit tobacco: 2016 Former quit date comment: smoked 1 pack per day x 36 years Alcohol intake: current Household members: spouse Housing: House Vitals/I&O/Wt Last Vital Signs Temp 99.8 F H 04/04/22 05:49 Pulse 98 04/04/22 11:09 Resp 25 H 04/04/22 11:09 BP 140/66 04/04/22 11:09 Pulse Ox 95 04/04/22 11:09 O2 Del Method 04/04/22 05:49 04/04/22 04/04/22 04/04/22 06:59 14:59 22:59 Intake Total 50 / 50 Balance 50 / 50 Weight last 48 hrs Weight 74.389 kg Physical Exam Narrative: General well-developed well-nourished male chronically ill-appearing CV regular rate and rhythm without murmurs rubs gallops Lungs wheezing tight with coarse rhonchi throughout and moderate air movement Abdomen positive bowel sounds soft nontender mild lower abdominal distention no rebound tenderness Calves 1+ bilateral pretibial edema Skin warm and dry Mentation is alert and oriented to person place his age and his birthday but did not know the day date month or year. He did correct the year from 2011 to 2020 to 2021 Data : 04/04/22 06:04 04/04/22 06:04 Micro: Microbiology 04/04/22 07:17 Blood Culture - Preliminary Blood SPECIMEN COLLECTED 04/04/22 07:13 Blood Culture - Preliminary Blood SPECIMEN COLLECTED A&P Assessment and plan (1) Ischemic cardiomyopathy: Patient fell off the toilet and did not had head or neck injury but did have significant difficulty getting back up. He will do physical therapy. He will be on telemetry looking for arrhythmia. Status: Acute (2) Moderate aortic stenosis: Stable Status: Acute (3) Suspected 2019-nCoV infection: PCR and rapid testing sent thus far negative Status: Acute (4) Rhabdomyolysis: Continue with IV fluid and daily BMP repeat CPK in the morning Status: Acute (5) Atrial fibrillation: Resume digoxin Eliquis and metoprolol Status: Acute (6) Acute kidney injury: Monitor urine output Status: Acute Attestations Medical Necessity Statement*: Patient with rhabdomyolysis will be hydrated and kidney function followed anticipate 2 days in the hospital start physical therapy continue telemetry Coding Level of Care Code Acute Software Security Consultant for Deyanira Pinon History Comprehensive Exam Comprehensive Medical Decision Making High Complexity Diagnoses Ischemic cardiomyopathy I25.5 Moderate aortic stenosis I35.0 Suspected 2019-nCoV infection Z20.828 Rhabdomyolysis M62.82 Atrial fibrillation I48.91 Acute kidney injury N17.9
--- NOTE | 2022-04-04 17:34 | XRR_ITS ---
PROCEDURE INFORMATION: Exam: XR Chest Exam date and time: 04/04/2022 5:42 PM Age: 77 years old Clinical indication: Other: Weakness; Additional info: Respiratory distress and tachypnea TECHNIQUE: Imaging protocol: Radiologic exam of the chest. Views: 1 view. COMPARISON: CR (CHEST, ) 04/04/2022 6:25 AM FINDINGS: Lungs: Emphysematous changes. Bilateral mid to lower lung field right greater left atelectasis versus early infiltrate. Pleural spaces: Unremarkable. No pleural effusion. No pneumothorax. Heart/Mediastinum: Mild cardiomegaly. Bones/joints: Sternotomy wires. XR/XR chest 1V portable [id number] IMPRESSION: 1. Emphysematous changes. 2. Bilateral mid to lower lung field right greater left atelectasis versus early infiltrate. 3. Mild cardiomegaly.
[2022-04-04] MEDS: sodium chlor 0.9% + KCl 20 mEq 20 MEQ/1,000 ML BAG 125 MEQ IV ×2 (17:51→23:21)
[2022-04-04] MEDS: apixaban 5 mg Tablet PO (17:51)
[2022-04-04 18:46] LABS: SARS Covid-2 Antigen Negative (Negative)
[2022-04-04 19:56] LABS: Add Urine Microscopic? YES; Bilirubin Urine Neg (Negative); Blood Urine 3+ (Negative); Glucose Urine UA 4+ (Normal); Ketones Urine Negative (Negative); Leukocyte Esterase Urine Trace (Negative); Nitrate Urine Negative (Negative); Protein Urine 2+ (Negative); Specific Gravity, Urine 1.015 (1.005-1.030); Urine Appearance SL Hazy (CLEAR); Urine Color Dark Yellow (Yellow); Urobilinogen Urine 4 mg/dL (Negative); pH Urine 5 (5-7)
[2022-04-04 19:57] LABS: Add Urine Culture? No; Bacteria Urine TRACE /hpf; Coarse Granular Casts Urine 0-4 /lpf; Mucus Urine TRACE /hpf
[2022-04-04 23:14] LABS: Glucose Point of Care 360 mg/dL (70-110)
--- NOTE | 2022-04-04 23:30 | PC.NURSE ---
Spoke with regarding patient with History of dm, takes 15units of lantus BID at home but does not have accuchecks or coverage ordered here. The patients blood glucose was 360 when checked by the nurse. Dr Giron ordered accuchecks and mod coverage, home dose of lantus, and also changed diet order.
[2022-04-04] MEDS: insulin lispro 100 unit/1 mL SUBCUT (23:51)
[2022-04-05] VITALS (14 sets, daily range): BP systolic 110–163; BP diastolic 48–68; PULSE 65–90; RESP 16–26; TEMP 36.4–37.1; O2SAT 93–99
[2022-04-05 05:27] LABS: Basophils % 0.2 %; Eosinophils % 0.4 %; Hematocrit 29.3 % (42.0-52.0); Hemoglobin 9.2 g/dL (11.7-16.6); Lymphocytes % 10.3 %; Mean Corpuscular HGB Conc 31.4 g/dL (30.0-36.0); Mean Corpuscular Volume 95.4 fl (80-94); Mean Platelet Volume 11.4 fL (7.4-10.4); Neutrophils # 6.24 10^3/uL (1.8-7.7); Neutrophils % 66.9 %; Nucleated Red Blood Cells % 0 %; Platelet Count 153 10^3/cmm (130-400); Red Blood Count 3.07 10^6/uL (4.1-5.3); Red Cell Distribution Width 15.5 % (12.1-15.1); White Blood Count 9.3 10^3/uL (4.0-10.0)
[2022-04-05] MEDS: FUROsemide 40 mg Tablet PO (05:44)
[2022-04-05 05:56] LABS: Anion Gap 12.8 (5-19); Blood Urea Nitrogen 17 mg/dL (8-23); Calcium 8.5 mg/dL (8.5-10.5); Carbon Dioxide 27 mmol/L (22-29); Chloride 104 mmol/L (98-107); Creatinine Clr Calc Pharmacy 64.9615; Glucose 141 mg/dL (65-115); Osmolality Calculated 294 mOsm/kg (285-295); Potassium 3.8 mmol/L (3.5-5.1); Sodium 140 mmol/L (136-145)
[2022-04-05 06:16] LABS: Glucose Point of Care 170 mg/dL (70-110)
[2022-04-05] MEDS: insulin glargine 100 units/1 mL 15 UNIT SUBCUT ×2 (06:30→18:06)
[2022-04-05] MEDS: sodium chlor 0.9% + KCl 20 mEq 20 MEQ/1,000 ML BAG 125 MEQ IV ×2 (06:30→20:45)
[2022-04-05] MEDS: insulin lispro 100 unit/1 mL SUBCUT ×3 (09:12→17:44)
[2022-04-05] MEDS: lisinopril 10 mg Tablet 5 MG PO (09:13)
[2022-04-05] MEDS: apixaban 5 mg Tablet PO ×2 (09:13→17:44)
[2022-04-05] MEDS: metoprolol succinate ER (24 HR) 25 mg Tablet PO (09:13)
[2022-04-05] MEDS: pantoprazole DR 40 mg Tablet PO (09:13)
[2022-04-05] MEDS: digoxin 125 mcg Tablet PO (09:13)
--- NOTE | 2022-04-05 11:11 | P.PN_ITS ---
Subjective Subjective: The 77-year-old male admitted following fall in the bathroom and could not get up without help. He admits to shortness of breath but does not have good recollection of how he crumpled to the floor. He was found to have mild rhabdomyolysis and mild lactic acidosis on admission. Notably he is on metformin. Lactic acid normalized quickly and his renal function has been stable. On my evaluation he had significant tachypnea coarse breath sounds ultimately improved with nebulizer therapy. He states he has inhalers at home. Patient tells me he smoked since 1960 and quit about 3 years ago. He states he did not inhale. Tells me not to laugh but that he really did not inhale Vitals/I&O/Wt Last Vital Signs Temp 98.5 F 04/05/22 08:00 Pulse 90 04/05/22 09:13 Resp 16 04/05/22 08:47 BP 141/68 04/05/22 08:00 Pulse Ox 97 04/05/22 08:47 O2 Del Method 04/05/22 08:47 O2 Flow Rate 2 04/05/22 08:47 04/04/22 04/05/22 04/05/22 22:59 06:59 14:59 Intake Total 100 / 150 2081.25 / 2231.25 360 / 360 Output Total 500 / 800 1350 / 2150 Balance -400 / -650 731.25 / 81.25 360 / 360 Weight last 48 hrs Weight 89.448 kg Weight 87.543 kg Weight 74.389 kg Physical Exam Narrative: General well-developed well-nourished male chronically ill-appearing CV regular rate and rhythm without murmurs rubs gallops Lungs wheezing with coarse rhonchi throughout and moderate air movement improved from yesterday Abdomen positive bowel sounds soft nontender mild lower abdominal distention no rebound tenderness Calves 1+ bilateral pretibial edema Skin warm and dry Data : 04/05/22 05:15 04/05/22 05:15 Micro: Microbiology 04/04/22 07:17 Blood Culture - Preliminary Blood NEGATIVE TO DATE 04/04/22 07:13 Blood Culture - Preliminary Blood NEGATIVE TO DATE A&P Assessment and plan (1) Acute exacerbation of chronic obstructive pulmonary disease (COPD): I think the patient has COPD from smoking despite not inhaling. He is getting better with nebulizers. Add steroids. Patient will be scheduled for pulmonary function tests. Status: Acute (2) Ischemic cardiomyopathy: Patient fell off the toilet and did not had head or neck injury but did have significant difficulty getting back up. He will do physical therapy. He will be on telemetry looking for arrhythmia. No significant arrhythmias Status: Acute (3) Moderate aortic stenosis: Stable Status: Acute (4) Suspected 2019-nCoV infection: COVID testing negative on PCR and antigen Status: Acute (5) Rhabdomyolysis: Continue with IV fluid and daily BMP repeat CPK in the morning Resolving Status: Acute (6) Atrial fibrillation: Resume digoxin Eliquis and metoprolol Stable Status: Acute (7) Acute kidney injury: Monitor urine output Status: Acute Attestations Medical Necessity Statement*: Hospitalized through tomorrow start PT and OT. We will do home oxygen need testing Time Spent in Patient Care: 35 minutes spent in the evaluation and coordination of care for this patient today Coding Level of Care Code Acute Transfer Car Operator for Deyanira Pinon History Detailed Exam Detailed Medical Decision Making High Complexity Diagnoses Acute exacerbation of chronic obstructive pulmonary disease (COPD) J44.1 Ischemic cardiomyopathy I25.5 Moderate aortic stenosis I35.0 Suspected 2019-nCoV infection Z20.828 Rhabdomyolysis M62.82 Atrial fibrillation I48.91 Acute kidney injury N17.9
[2022-04-05] MEDS: acetaminophen 325 mg Tablet 650 MG PO ×2 (11:16→18:19)
[2022-04-05 13:24] LABS: Glucose Point of Care 271 mg/dL (70-110)
[2022-04-05] MEDS: dilTIAZem ER (24HR) 180 mg Capsule PO (13:49)
[2022-04-05 16:51] LABS: Glucose Point of Care 165 mg/dL (70-110)
[2022-04-05] MEDS: dexamethasone 4 mg Tablet PO (17:44)
[2022-04-05 20:32] LABS: Glucose Point of Care 127 mg/dL (70-110)
[2022-04-06] VITALS (9 sets, daily range): BP systolic 132–158; BP diastolic 51–59; PULSE 61–76; RESP 18–24; TEMP 36.6–37.1; O2SAT 87–99
[2022-04-06] MEDS: sodium chlor 0.9% + KCl 20 mEq 20 MEQ/1,000 ML BAG 125 MEQ IV (05:06)
[2022-04-06] MEDS: insulin glargine 100 units/1 mL 15 UNIT SUBCUT (05:07)
[2022-04-06] MEDS: FUROsemide 40 mg Tablet PO (05:07)
[2022-04-06 06:35] LABS: Glucose Point of Care 267 mg/dL (70-110)
[2022-04-06] MEDS: dexamethasone 4 mg Tablet PO (08:29)
[2022-04-06] MEDS: lisinopril 10 mg Tablet 5 MG PO (08:29)
[2022-04-06] MEDS: digoxin 125 mcg Tablet PO (08:29)
[2022-04-06] MEDS: pantoprazole DR 40 mg Tablet PO (08:29)
[2022-04-06] MEDS: dilTIAZem ER (24HR) 180 mg Capsule PO (08:29)
[2022-04-06] MEDS: apixaban 5 mg Tablet PO (08:29)
[2022-04-06] MEDS: insulin lispro 100 unit/1 mL SUBCUT (08:30)
--- NOTE | 2022-04-06 10:44 | P.DS_ITS ---
Discharge Providers Date of Admission: 04/04/22 11:35 Date of Discharge: April 06, 2022 Attending Provider at Admission: Sincere Quinonez MD Attending Provider at Discharge: Yung Morrison MD Primary Care Provider: Paola Moore MD Diagnoses at Discharge Discharge Diagnosis (1) Acute exacerbation of chronic obstructive pulmonary disease (COPD): Status: Acute (2) Ischemic cardiomyopathy: Status: Acute (3) Moderate aortic stenosis: Status: Acute (4) Suspected 2019-nCoV infection: Status: Acute (5) Rhabdomyolysis: Status: Acute (6) Atrial fibrillation: Status: Acute (7) Acute kidney injury: Status: Acute Reason for Visit Reason for Visit: WEAKNESS Hospital Course Hospital Course HPI: Sincere Quinonez MD 77 year old male with history of A. fib on Eliquis, coronary artery bypass graft times 09/2009, hypertension, hyperlipidemia, NIDDM followed by Dr. Hernandez. Patient was in the bathroom and fell down.? He does not recall the fall but states that he could not get up thereafter he had not been weak or dizzy or using a walker in the preceding time.? Typically he walks fine and lives with his .? was outside working in the yard so he was down for an hour or more on his own.? He states his knees were injured from trying to get up off the ground she found him and called 911 Patient was hypoxic in the emergency department and started on oxygen but that did slowly improve.? He denies fevers chills sweats nausea vomiting diarrhea or chest pain.? He does admit to cough and dyspnea on exertion the last 3 days Of note the patient was just discharged following observation hospitalization by Dr. Low for new onset atrial fibrillation with RVR.? Patient noted to have EKG showing septal [place] age indeterminant and echocardiogram showing EF 35 to 40% with severe hypokinesis of the mid and apical inferoseptal and essentially apical portions of his heart.? Patient has a prosthetic mitral valve and this is moderately stenotic.? There is mild aortic stenosis IVC did not show volume o verload on 03/03/2022.? Weight that day 74.389 kg today's weight unchanged but I am not sure this was a measured weight possibly just recorded from previous. Hospital course: During the hospital stay was managed for COPD exacerbation, he was kept on nebs steroids, supplemental oxygen as needed, Responded well to above conservative medical management at the time of discharge he qualified for 2 L home oxygen, Outpatient PFT has been scheduled, patient has also been discharged on prednisone 40 mg p.o. daily for 5 days, and has been asked to continue with his home inhalers. For his history of A. fib Cardizem 180 mg p.o. daily was started, which provided better heart rate control, metoprolol has been discontinued, he has been continued on Eliquis. Overall patient responded well to medical management Will continue to see cardiology as outpatient, as well as primary care physician. Patient was discharged in stable condition to home. Physical Exam Const: COMMON NORMALS: patient oriented x3 HENMT: COMMON NORMALS: hearing grossly normal bilaterally Resp: COMMON NORMALS: normal respiratory effort, No retractions and No use of accessory muscles OTHER: Bilateral expiratory wheezing present in both lungs field Cardio: COMMON NORMALS: No gallops present (Cardio), No murmurs present (Cardio), No rub (Cardio) and Peripheral pulses 2+ throughout PERIPHERAL PULSES: Peripheral pulses 2+ throughout OTHER: Irregularly irregular irregularly irregular rhythm, S1-S2 variable intensity GI: COMMON NORMALS: Normal to inspection, nondistended, normoactive bowel sounds present, Soft to palpation, non-tender, No hepatosplenomegaly present and no masses AUSCULTATION: Yes normoactive bowel sounds PALPATION: Yes Soft to palpation and Yes No hepatosplenomegaly present RECTAL EXAM: Yes deferred Extremity: COMMON NORMALS: no clubbing, cyanosis or edema and no pedal edema Neuro: COMMON NORMALS: patient oriented x3 Discharge Data Studies Completed and Pending Completed Studies During Hospitalization Category Date Time Status CT cervical spin wo con* [id number] Stat Cat Scan 04/04/22 06:[address] head wo con* [id number] Stat Cat Scan 04/04/22 06:01 Completed XR chest 1V portable [id number] Stat Exams 04/04/22 05:59 Completed XR chest 1V portable [id number] Urgent Exams 04/04/22 17:34 Completed Pending at discharge Category Date Time Status Blood Culture Stat Lab 04/04/22 07:17 Results Respiratory Viral Panel PCR Stat Lab 04/04/22 07:15 Received Radiology Impressions Cervical Spine CT 04/04/22 06:01 IMPRESSION: 1. No acute findings. 2. Cervical spondylosis. No evidence of high-grade stenosis. Head CT 04/04/22 06:01 IMPRESSION: 1. No acute findings. 2. Atrophy and chronic small vessel ischemic disease. Chest X-Ray 04/04/22 17:34 IMPRESSION: 1. Emphysematous changes. 2. Bilateral mid to lower lung field right greater left atelectasis versus early infiltrate. 3. Mild cardiomegaly. Laboratory Results WBC 9.3 10^3/uL (4.0-10.0) 04/05/22 05:15 RBC 3.07 10^6/uL (4.1-5.3) L 04/05/22 05:15 Hgb 9.2 g/dL (11.7-16.6) L 04/05/22 05:15 Hct 29.3 % (42.0-52.0) L 04/05/22 05:15 MCV 95.4 fl (80-94) H 04/05/22 05:15 MCH 30.0 pg (28.0-34.0) 04/05/22 05:15 MCHC 31.4 g/dL (30.0-36.0) 04/05/22 05:15 RDW 15.5 % (12.1-15.1) H 04/05/22 05:15 Plt Count 153 10^3/cmm (130-400) 04/05/22 05:15 MPV 11.4 fL (7.4-10.4) H 04/05/22 05:15 Neut % (Auto) 66.9 % 04/05/22 05:15 Lymph % (Auto) 10.3 % 04/05/22 05:15 [place] % (Auto) 21.0 % 04/05/22 05:15 Eos % (Auto) 0.4 % 04/05/22 05:15 Baso % (Auto) 0.2 % 04/05/22 05:15 Neut # (Auto) 6.24 10^3/uL (1.8-7.7) 04/05/22 05:15 Lymph # (Auto) 1.0 10^3/uL (0.8-4.8) 04/05/22 05:15 [place] # (Auto) 2.0 10^3/uL (0.2-0.9) H 04/05/22 05:15 Eos # (Auto) 0.0 10^3/uL (0.0-0.8) 04/05/22 05:15 Baso # (Auto) 0.0 10^3/uL (0.0-0.1) 04/05/22 05:15 Nucleated RBC % (auto) 0 % 04/05/22 05:15 Nucleated RBCs # 0.0 /100WBC 04/05/22 05:15 Specimen Type Arterial 04/04/22 06:22 Sample Site Radial, right 04/04/22 06:22 ABG pH 7.46 (7.35-7.45) H 04/04/22 06:22 ABG pCO2 31.7 mmHg (35-45) L 04/04/22 06: ABG pO2 98.3 mmHg (80.0-100.0) 04/04/22 06: ABG HCO3 22.7 mmol/L (22-26) 04/04/22 06: ABG O2 Saturation 99.1 04/04/22 06:22 ABG Base Excess -0.7 mmol/L (-2.0-2.0) 04/04/22 06:22 Lei Test Pos 04/04/22 06:22 A-a O2 Gradient 1.4 mmHg (5-10) L 04/04/22 06:22 Hematocrit 29.3 % (42-52) L 04/04/22 06:22 Hgb O2 Saturation 96.4 % (95-100) 04/04/22 06:22 Carboxyhemoglobin 2.1 %THgb (0.4-20.1) 04/04/22 06:22 Methemoglobin 0.7 % (0.4-1.5) 04/04/22 06:22 Total Hemoglobin 9.6 g/dL (14-18) L 04/04/22 06:22 Sodium 135.0 mmol/L (131-143) 04/04/22 06:22 Potassium 4.1 mmol/L (3.5-5.0) 04/04/22 06:22 Glucose 338.0 mg/dL (70-115) H 04/04/22 06:22 Ionized Calcium 1.1 mmol/L (1.1-1.4) 04/04/22 06:22 O2 Delivery Device Nc 04/04/22 06:22 O2 Liters/Min 3.0 % 04/04/22 06:22 Silk Screen Operator ID [email or web address] 04/04/22 06:22 Sodium 140 mmol/L (136-145) 04/05/22 05:15 Potassium 3.8 mmol/L (3.5-5.1) 04/05/22 05:15 Chloride 104 mmol/L (98-107) 04/05/22 05:15 Carbon Dioxide 27 mmol/L (22-29) 04/05/22 05:15 Anion Gap 12.8 (5-19) 04/05/22 05:15 BUN 17 mg/dL (8-23) 04/05/22 05:15 Creatinine 1.0 mg/dL (0.7-1.2) 04/05/22 05:15 GFR Calculation Not Reportable 04/05/22 05:15 Glucose 141 mg/dL (65-115) H 04/05/22 05:15 POC Glucose 267 mg/dL (70-110) H 04/06/22 06:31 Calculated Osmolality 294 mOsm/kg (285-295) 04/05/22 05:15 Lactic Acid 3.2 mmol/L (0.5-2.2) H 04/04/22 06:04 Lactic Acid (Sepsis) 1.2 mmol/L (0.5-2.2) 04/04/22 08:17 Calcium 8.5 mg/dL (8.5-10.5) 04/05/22 05:15 Magnesium 1.8 mg/dL (1.7-2.3) 04/04/22 06:04 Total Bilirubin 0.9 mg/dL (0.15-1.2) 04/04/22 06:04 AST 28 U/L (0-40) 04/04/22 06:04 ALT 16 U/L (0-41) 04/04/22 06:04 Alkaline Phosphatase 88 U/L (40-130) 04/04/22 06:04 Creatine Kinase 619 U/L (39-308) H* 04/04/22 06:04 Troponin T Baseline 34 ng/L (0-15) H 04/04/22 06:04 Troponin T 120 Minute 37.90 ng/L (0-15) H 04/04/22 08:17 Delta Troponin T 3.90 ABS# (0-10) 04/04/22 08:17 Troponin T Hi Sens 6Hr 45.07 ng/L (0-15) H 04/04/22 13:11 Troponin T Hi Sens 6Hr Delta 11.07 ng/L (0-12) 04/04/22 13:11 NT-Pro-B Natriuret Pep 1667 pg/mL (0-450) H 04/04/22 06:04 Total Protein 7.2 g/dL (6.6-8.7) 04/04/22 06:04 Albumin 4.2 g/dL (3.5-5.2) 04/04/22 06:04 Globulin 3.0 g/dL (1.3-4.6) 04/04/22 06:04 Lipase 47 U/L (13-60) 04/04/22 06:04 Urine Color Dark yellow (Yellow) 04/04/22 19:40 Urine Appearance Sl hazy (CLEAR) 04/04/22 19:40 Urine pH 5 (5-7) 04/04/22 19:40 Ur Specific Widen 1.015 (1.005-1.030) 04/04/22 19:40 Urine Protein 2+ (Negative) H 04/04/22 19:40 Urine Glucose (UA) 4+ (Normal) H 04/04/22 19:40 Urine Ketones Negative (Negative) 04/04/22 19:40 Urine Blood 3+ (Negative) H 04/04/22 19:40 Urine Nitrate Negative (Negative) 04/04/22 19:40 Urine Bilirubin Neg (Negative) 04/04/22 19:40 Urine Urobilinogen 4 mg/dL (Negative) H 04/04/22 19:40 Ur Leukocyte Esterase Trace (Negative) H 04/04/22 19:40 Urine RBC 5-10 /hpf (0-2) H 04/04/22 19:40 Urine WBC 5-10 /hpf (0-5) H 04/04/22 19:40 Ur Squamous Epith Cells 5-10 /hpf (0-5) H 04/04/22 19:40 Amorphous Sediment Not Reportable 04/04/22 19:40 Urine Bacteria Trace /hpf (NONE) 04/04/22 19:40 Coarse Granular Casts 0-4 /lpf H 04/04/22 19:40 Urine Mucus Trace /hpf 04/04/22 19:40 Digoxin 1.0 ng/mL (0.6-1.2) 04/04/22 06:04 Serum Ketones Negative (Negative) 04/04/22 06:45 Coronavirus 229E (PCR) Not detected (NOT DETECT) 04/04/22 06:53 SARS-CoV-2 (PCR) Not detected (NOT DETECT) 04/04/22 06:53 SARS-CoV-2 Ag (Rapid) Negative (Negative) 04/04/22 18:00 Vitals Last Vital Signs Temp 98.2 F 04/06/22 07:16 Pulse 64 04/06/22 08:29 Resp 18 04/06/22 07:55 BP 134/59 04/06/22 07:16 Pulse Ox 95 04/06/22 07:55 O2 Del Method 04/06/22 07:55 O2 Flow Rate 2 04/06/22 07:53 Discharge Plan Discharge Patient Disposition: Home Condition: Stable Prescriptions: New DILT-XR 180 mg Capsule,Ext.Rel 24h Degradable 180 mg PO DAILY 30 Days Qty: 30 3RF prednisone 20 mg tablet 40 mg PO BID 5 Days Qty: 20 0RF Continued multivitamin Tablet 1 tab PO DAILY omeprazole 40 mg Capsule,Delayed Release(Dr/Ec) 40 mg PO BID metformin 1,000 mg Tablet 1,000 mg PO BID lisinopril 10 mg Tablet 5 mg PO DAILY docusate sodium 100 mg Capsule 100 - 200 mg PO DAILY PRN (Reason: Constipation) albuterol sulfate 90 mcg/actuation Hfa Aerosol Inhaler 2 puff INHALATION Q4H PRN (Reason: Shortness Of Breath) Eliquis 5 mg Tablet 5 mg PO BID atorvastatin 80 mg Tablet 80 mg PO QPM cholecalciferol (vitamin D3) [Vitamin D3] 25 mcg (1,000 unit) Capsule 25 mcg PO DAILY insulin glargine [Lantus Solostar U-100 Insulin] 100 unit/mL (3 mL) Insulin Pen 15 unit SUBCUT BID@0630,1830 furosemide [Lasix] 40 mg Tablet 40 mg PO QAM glipizide 10 mg Tablet 20 mg PO BID prednisolone acetate 1 % Drops,Suspension 1 drp ophthalmic (eye) BID Rx Instructions: left eye fluticasone propion-salmeterol [Advair Diskus] 100-50 mcg/dose Blister With Device 1 inh INHALATION BID carboxymethylcellulose sodium [Refresh Liquigel] 1 % Drops, Liquid Gel 1 drp OPHTHALMIC (EYE) BID PRN (Reason: Dry Eye(S)) ferrous gluconate 324 mg (38 mg iron) Tablet 324 mg PO BID ipratropium-albuterol 20-100 mcg/actuation Mist 1 puff INHALATION Q6H PRN (Reason: Shortness Of Breath) digoxin 125 mcg (0.125 mg) Tablet 125 mcg PO DAILY Discontinued metoprolol succinate 25 mg Tablet Extended Release 24 Hr 25 mg PO DAILY Qty: 30 0RF Discharge Orders: Discharge Order (Routine); Ordered 04/06/22 Ordered By: Yung Morrison Other Ambulatory Orders: Pulmonary Function Screen with Bronchodilator (Routine) Facility: [facility] - Location: Respiratory Therapy Ordered By: Sincere Quinonez Referrals: Paola Moore MD [Primary Care Provider] - 04/14/22 9:00 am Patient Instructions: Diltiazem (By mouth), Prednisone (By mouth), Acute Kidney Injury (DC), Opioid Safety Discharge Attestations Time Spent in Discharge Care*: less than 30 min Quality Metrics Clinical Quality Measures [ No reported AMI, CVA or VTE this stay] Coding Level of Care Code Acute Chg FW DC note Exam Detailed Diagnoses Acute exacerbation of chronic obstructive pulmonary disease (COPD) J44.1 Ischemic cardiomyopathy I25.5 Moderate aortic stenosis I35.0 Suspected 2019-nCoV infection Z20.828 Rhabdomyolysis M62.82 Atrial fibrillation I48.91 Acute kidney injury N17.9
[2022-04-06 11:38] LABS: Glucose Point of Care 541 mg/dL (70-110)
[2022-04-06] MEDS: insulin lispro 100 unit/1 mL 25 UNIT SUBCUT (13:17)
--- NOTE | 2022-04-06 14:25 | PC.NURSE ---
Discharge Note Patient discharged to home via private vehicle accompanied by spouse. Discharge instructions reviewed with patient and/or hvac sales representative. Mobile pharmacy medications and/or prescriptions provided. Belongings/home medications returned.
[2022-04-08 17:08] LABS: Adenovirus Not Detected (Not Detected); Human Metapneumovirus Not Detected (Not Detected); Human Parainflu Virus 1 Not Detected (Not Detected); Human Parainflu Virus 2 Not Detected (Not Detected); Human Parainflu Virus 3 Not Detected (Not Detected); Human Rsv A Not Detected (Not Detected); Influenza A Not Detected (Not Detected); Influenza B Not Detected (Not Detected); Rhinovirus/Enterovirus Not Detected (Not Detected)
== END 2022-04-06 14:25 | disposition home or self-care (01) | DRG 191 ==
LOC: ER 06:26 → MEDSURG 12:29
PROVIDERS: Admitting Provider Internal Medicine; Emergency Provider Family Medicine; PCP Family Medicine; Visit Provider Internal Medicine
DX: J44.1 Chronic obstructive pulmonary disease with (acute) exacerbation (principal); E87.2 Acidosis; M62.82 Rhabdomyolysis; N17.9 Acute kidney failure, unspecified; I25.5 Ischemic cardiomyopathy; I35.0 Nonrheumatic aortic (valve) stenosis; I48.91 Unspecified atrial fibrillation; Z79.01 Long term (current) use of anticoagulants; Z95.1 Presence of aortocoronary bypass graft; W18.30XA Fall on same level, unspecified, initial encounter; Z87.891 Personal history of nicotine dependence; E11.9 Type 2 diabetes mellitus without complications; Z79.84 Long term (current) use of oral hypoglycemic drugs; I10 Essential (primary) hypertension; E78.5 Hyperlipidemia, unspecified
CPT/HCPCS: 36415; 36416; 36600; 70450; 71045; 72125; 80048; 80051; 80053; 80162; 81001; 82009; 82330; 82550; 82805; 82962; 83605; 83690; 83735; 83880; 84484; 85025; 87040; 87426; 87633; 87635; 93005; 94640; 94760; 96365; 96372; 96375; 97110; 97116; 97161; 97166; 99285; J1815; J1940; J2543; J3535; J8540

== ENCOUNTER 2022-04-10 09:46 | Emergency (ER) | payer OTHER, SELFPAY ==
[2022-04-10 09:49] VITALS: BP 149/78; PULSE 124; RESP 24; TEMP 36.5; O2SAT 89; BMI 25.7
[2022-04-10 09:54] VITALS: BP 125/87; PULSE 98; RESP 22; TEMP 36.5; O2SAT 96
--- NOTE | 2022-04-10 10:02 | ECG_ITS ---
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 Measurements Intervals [place] Rate: 94 P: VT: QRS: 71 QRSD: 117 T: 94 QT: 342 QTc: 430 Interpretive Statements ATRIAL FIBRILLATION ANTEROSEPTAL MYOCARDIAL INFARCTION , OF INDETERMINATE AGE [40+ ms Q WAVE IN V1-V4] Compared to ECG 04/04/2022 11:36:54 Myocardial infarct finding still present Electronically Signed On 04-10-2022 13:41:55 CDT by Miracle Cash M.D. [email or web address]
--- NOTE | 2022-04-10 10:02 | XR_ITS ---
WS: [id number] XR chest 1V portable [id number] REASON FOR EXAM: sob FINDINGS: The chest appears similar to presumed baseline examination of 03/03/2022. Status post aortocoronary artery bypass surgery and porcine aortic valve replacement. Mild cardiomega ly. Compared to the previous examination of 04/04/2022, the ill-defined lung opacity in the right lower laurence ng has resolved. The remaining reticular interstitial densities in the lower lung fraga appear to be chronic compared to recent exams. Ill-defined lucencies in the upper lung fraga. Chronic blunting of the costophrenic angles and flattening of the hemidiaphragms. XR/XR chest 1V portable [id number] IMPRESSION: The chest appears similar to previous presumed baseline examination with no def inite acute abnormality. Mild cardiomegaly. Probable obstructive lung disease/Central lobar emphysema.
--- NOTE | 2022-04-10 10:14 | PC.NURSE ---
Nurse's assessment completed on patient. His vitals are stable now that he is on 3L nasal cannula. Patient states he was a patient here a week ago for a fall. He has intermittent confusion reportedly, but is A&Ox4 now and is recalling events from last stay. EKG completed, IV is being started and labs obtained.
[2022-04-10 10:15] VITALS: BP 125/87; PULSE 98; RESP 22; TEMP 36.5; O2SAT 99
--- NOTE | 2022-04-10 10:15 | ED_ITS ---
HPI - SOB/Dyspnea General: Chief Complaint: Shortness of Breath/Dyspnea Stated Complaint: weakness Time Seen by Provider: 04/10/22 09:57 Source: patient Mode of arrival: ambulatory Limitations: no limitations History of Present Illness: HPI Narrative: 77-year-old male who has a history of COPD was admitted last week discharged on the I believe with COPD exacerbation he was discharged on 2 L of oxygen. He states that he has had weakness along with continuing dyspnea since his discharge denies any fever patient's pulse ox here is 98% on that 2 L he was discharged on. He is able speak in full sentences denies any chest pain. Associated symptoms: Deny abdominal pain, chest pain, fever(s), nausea or vomiting Review of Systems Const: Reports: fatigue; Denies: fever(s), chills, body aches or change in appetite Eyes: Denies: blurry vision or eye discomfort ENMT: Denies: throat pain or dental pain Card: Denies: chest pain Resp: Reports: dyspnea GI: Denies: abdominal pain, nausea, vomiting or diarrhea : Denies: dysuria Musc: Denies: neck pain or back pain Skin/Breast: Denies: rash Neuro: Denies: headache(s) Psych: Denies: depression Marvel/Lymph: Denies: easy bruising All/Imm: Denies: urticaria PFSH ED PFSH: Medical History Acute exacerbation of chronic obstructive pulmonary disease (COPD) Acute kidney injury Atrial fibrillation COPD (chronic obstructive pulmonary disease) Coronary artery disease Diabetes mellitus HTN (hypertension) Ischemic cardiomyopathy Moderate aortic stenosis Rhabdomyolysis Suspected 2019-nCoV infection Surgical History 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 Family History Mother Stroke Denies family history of Diabetes CAD (coronary artery disease) Clotting disorder Dementia Social History Smoking and tobacco status: light tobacco smoker Quit status (tobacco): has quit using tobacco Year quit tobacco: 2016 Former quit date comment: smoked 1 pack per day x 36 years Alcohol intake: current Household members: spouse Housing: House 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 Const: COMMON NORMALS: patient oriented x3 HENMT: COMMON NORMALS: normocephalic and atraumatic HEAD & SCALP: normocephalic and atraumatic Eye: COMMON NORMALS: Equal, round and reactive pupils present and EOMs intact bilaterally PUPIL: Yes Equal, round and reactive pupils present Neck/C-Spine: COMMON NORMALS: full ROM and supple Chest: COMMONS NORMALS: normal inspection of the chest and normal palpation of entire chest wall Resp: COMMON NORMALS: normal respiratory effort, No retractions, No use of accessory muscles and clear to auscultation bilaterally AUSCULTATION: clear to auscultation bilaterally Cardio: COMMON NORMALS: regular rate and No murmurs present (Cardio) RATE: regular rate RHYTHM: abnormal rhythm irregularly irregular GI: COMMON NORMALS: Normal to inspection, nondistended, normoactive bowel sounds present, Soft to palpation, non-tender and no masses PALPATION: Yes Soft to palpation Extremity: COMMON NORMALS: normal to inspection and full ROM Neuro: COMMON NORMALS: patient oriented x3, moves all extremities and no focal motor deficits Psych: COMMON NORMALS: mental status grossly normal, Normal thought process present and cooperative THOUGHT PROCESS: Normal thought process present Skin: COMMON NORMALS: no rashes or lesions noted and no wounds GENERAL SKIN EXAM: no rashes or lesions noted Course Vital Signs: Vital signs: Vital Signs Temperature 97.7 F 04/10/22 10:15 Pulse Rate 75 04/10/22 11:17 Respiratory Rate 18 04/10/22 11:17 Blood Pressure 159/67 04/10/22 11:17 Pulse Oximetry 98 04/10/22 11:17 Oxygen Delivery Id thod 04/10/22 11:17 Oxygen Flow Rate 2 04/10/22 11:17 MDM - SOB/Dyspnea Medical Decision Making Patient presents for shortness of breath he states that she feels much better here currently he is not on any extra oxygen he is requesting discharge informed him his electrolytes hemolyzed he does not want to stay for redraw informed his white count is elevated as well his x-ray shows no change she has been on the steroids could cause a slight leukocytosis we will start him on antibiotics as well we will start him on doxycycline he is to follow-up with PCP and return if worsening he understands agrees to plan. Lab Data : 04/10/22 10:18 04/10/22 11:35 Labs/Radiology: Radiology Impressions Chest X-Ray 04/10/22 10:02 IMPRESSION: The chest appears similar to previous presumed baseline examination with no definite acute abnormality. Mild cardiomegaly. Probable obstructive lung disease/Central lobar emphysema. Laboratory Results WBC 22.8 10^3/uL (4.0-10.0) H 04/10/22 10:18 RBC 3.30 10^6/uL (4.1-5.3) L 04/10/22 10:18 Hgb 9.8 g/dL (11.7-16.6) L 04/10/22 10:18 Hct 31.7 % (42.0-52.0) L 04/10/22 10:18 MCV 96.1 fl (80-94) H 04/10/22 10:18 MCH 29.7 pg (28.0-34.0) 04/10/22 10:18 MCHC 30.9 g/dL (30.0-36.0) 04/10/22 10:18 RDW 15.5 % (12.1-15.1) H 04/10/22 10:18 Plt Count 311 10^3/cmm (130-400) 04/10/22 10:18 MPV 11.5 fL (7.4-10.4) H 04/10/22 10:18 Lymph % (Auto) Not Reportable 04/10/22 10:18 [place] % (Auto) Not Reportable 04/10/22 10:18 Lymph # (Auto) Not Reportable 04/10/22 10:18 [place] # (Auto) Not Reportable 04/10/22 10:18 Total Counted 100 (0-100) 04/10/22 10:18 Atypical Lymphs % 0.0 % (0-5) 04/10/22 10:18 Absolute Neutrophils 19.4 10^3/cmm (1.4-6.5) H 04/10/22 10:18 Segmented Neutrophils 84 % 04/10/22 10:18 Abs Segm Neuts (Man) 19.2 10/cmm (1.6-7.1) H 04/10/22 10:18 Band Neutrophils 1.0 % 04/10/22 10:18 Abs Band Neuts (Man) 0.2 10^3/cmm (0.0-1.2) 04/10/22 10:18 Absolute Lymphocytes 0.9 10^3/cmm (1.2-3.4) L 04/10/22 10:18 Lymphocytes (Manual) 4 % 04/10/22 10:18 Monocytes (Manual) 8.0 % 04/10/22 10:18 Absolute Monocytes 1.8 10^3/cmm (0.1-0.6) H 04/10/22 10:18 Eosinophils (Manual) 0 % 04/10/22 10:18 Absolute Eosinophils 0.0 10^3/cmm (0.0-0.7) 04/10/22 10:18 Basophils (Manual) 0.0 % 04/10/22 10: Absolute Basophils 0.0 10^3/cmm (0.0-0.2) 04/10/22 10:18 Metamyelocytes 1.0 % 04/10/22 10:18 Myelocytes 2.0 % 04/10/22 10:18 Platelet Estimate Normal (Normal) 04/10/22 10:18 Hypochromasia 1+ H 04/10/22 10:18 Anisocytosis 1+ H 04/10/22 10:18 Specimen Type Arterial 04/10/22 10:29 Sample Site Radial, right 04/10/22 10:29 ABG pH 7.45 (7.35-7.45) 04/10/22 10:29 ABG pCO2 34.9 mmHg (35-45) L 04/10/22 10:29 ABG pO2 122.0 mmHg (80.0-100.0) H 04/10/22 10:29 ABG HCO3 24.3 mmol/L (22-26) 04/10/22 10:29 ABG Base Excess 0.5 mmol/L (-2.0-2.0) 04/10/22 10:29 Lei Test Pos 04/10/22 10:29 Hematocrit 29.7 % (42-52) L 04/10/22 10:29 Hgb O2 Saturation 97.8 % (95-100) 04/10/22 10:29 Carboxyhemoglobin 1.8 %THgb (0.4-20.1) 04/10/22 10:29 Methemoglobin 0.6 % (0.4-1.5) 04/10/22 10:29 Total Hemoglobin 9.7 g/dL (14-18) L 04/10/22 10:29 O2 Delivery Device Nc 04/10/22 10:29 O2 Liters/Min 2.0 % 04/10/22 10:29 FiO2 28.0 % 04/10/22 10:29 Anatomic Pathology Assistant ID Ed 04/10/22 10:29 Sodium Cancelled 04/10/22 10:18 Potassium Cancelled 04/10/22 10:18 Chloride Cancelled 04/10/22 10:18 Carbon Dioxide Cancelled 04/10/22 10:18 Anion Gap Cancelled 04/10/22 10:18 BUN Cancelled 04/10/22 10:18 Creatinine Cancelled 04/10/22 10:18 GFR Calculation Cancelled 04/10/22 10:18 Glucose Cancelled 04/10/22 10:18 Calculated Osmolality Cancelled 04/10/22 10:18 Calcium Cancelled 04/10/22 10:18 Total Bilirubin Cancelled 04/10/22 10:18 AST Cancelled 04/10/22 10:18 ALT Cancelled 04/10/22 10:18 Alkaline Phosphatase Cancelled 04/10/22 10:18 NT-Pro-B Natriuret Pep Cancelled 04/10/22 10:18 Total Protein Cancelled 04/10/22 10:18 Albumin Cancelled 04/10/22 10:18 Globulin Cancelled 04/10/22 10:18 Discharge Plan Discharge Patient Disposition: Home Clinical Impression: Acute exacerbation of chronic obstructive airways disease Condition: Stable Prescriptions: New doxycycline hyclate 100 mg capsule 100 mg PO BID 7 Days Qty: 14 0RF No Action multivitamin Tablet 1 tab PO DAILY omeprazole 40 mg Capsule,Delayed Release(Dr/Ec) 40 mg PO BID metformin 1,000 mg Tablet 1,000 mg PO BID lisinopril 10 mg Tablet 5 mg PO DAILY docusate sodium 100 mg Capsule 100 - 200 mg PO DAILY PRN (Reason: Constipation) albuterol sulfate 90 mcg/actuation Hfa Aerosol Inhaler 2 puff INHALATION Q4H PRN (Reason: Shortness Of Breath) Eliquis 5 mg Tablet 5 mg PO BID atorvastatin 80 mg Tablet 80 mg PO QPM cholecalciferol (vitamin D3) [Vitamin D3] 25 mcg (1,000 unit) Capsule 25 mcg PO DAILY insulin glargine [Lantus Solostar U-100 Insulin] 100 unit/mL (3 mL) Insulin Pen 15 unit SUBCUT BID@0630,1830 furosemide [Lasix] 40 mg Tablet 40 mg PO QAM glipizide 10 mg Tablet 20 mg PO BID prednisolone acetate 1 % Drops,Suspension 1 drp ophthalmic (eye) BID Rx Instructions: left eye fluticasone propion-salmeterol [Advair Diskus] 100-50 mcg/dose Blister With D evice 1 inh INHALATION BID carboxymethylcellulose sodium [Refresh Liquigel] 1 % Drops, Liquid Gel 1 drp OPHTHALMIC (EYE) BID PRN (Reason: Dry Eye(S)) ferrous gluconate 324 mg (38 mg iron) Tablet 324 mg PO BID ipratropium-albuterol 20-100 mcg/actuation Mist 1 puff INHALATION Q6H PRN (Reason: Shortness Of Breath) digoxin 125 mcg (0.125 mg) Tablet 125 mcg PO DAILY DILT-XR 180 mg Capsule,Ext.Rel 24h Degradable 180 mg PO DAILY 30 Days Qty: 30 3RF prednisone 20 mg tablet 40 mg PO BID 5 Days Qty: 20 0RF Discharge Orders: Discharge ED (Routine); Ordered 04/10/22 Ordered By: Dayana Lane Referrals: Paola Moore MD [Primary Care Provider] - Discharge Diet: Advance as tolerated Discharge Activity: Resume usual activity Patient Instructions: COPD (Chronic Obstructive Pulmonary Disease) (ED) Coding Level of Care Code ED Cosmetic Account Coordinator for Chg Fwd Exam Comprehensive
[2022-04-10 10:25] VITALS: PULSE 82; RESP 17; O2SAT 99
[2022-04-10] MEDS: levalbuterol 1.25 mg/3 mL Neb INHALATION (10:25)
[2022-04-10] MEDS: ipratropium-albuterol 3 mL Neb INHALATION (10:25)
[2022-04-10 10:28] LABS: Hematocrit 31.7 % (42.0-52.0); Hemoglobin 9.8 g/dL (11.7-16.6); Mean Corpuscular HGB Conc 30.9 g/dL (30.0-36.0); Mean Corpuscular Hemoglobin 29.7 pg (28.0-34.0); Mean Corpuscular Volume 96.1 fl (80-94); Mean Platelet Volume 11.5 fL (7.4-10.4); Platelet Count 311 10^3/cmm (130-400); Red Cell Distribution Width 15.5 % (12.1-15.1); White Blood Count 22.8 10^3/uL (4.0-10.0)
[2022-04-10 10:32] VITALS: PULSE 76
[2022-04-10 10:39] LABS: ABG PCO2 34.9 mmHg (35-45); ABG PH Result 7.45 (7.35-7.45); Arterial Blood Gas Hematocrit 29.7 % (42-52); Base Excess ABG 0.5 mmol/L (-2.0-2.0); Blood Gas Allen Test Pos; Blood Gas Operator Identificat ED; Blood Gas Sample Site Radial, right; Blood Gas Sample Type Arterial; Carboxyhemoglobin 1.8 %THgb (0.4-20.1); HCO3 ABG 24.3 mmol/L (22-26); HGB O2 Sat 97.8 % (95-100); Methemoglobin 0.6 % (0.4-1.5); Oxygen Device NC; Total Hemoglobin 9.7 g/dL (14-18)
--- NOTE | 2022-04-10 11:00 | PC.NURSE ---
Report from VANE Perez
[2022-04-10 11:04] LABS: Slide Review Slide Review Perform
[2022-04-10 11:11] LABS: Absolute Neutrophil 19.4 10^3/cmm (1.4-6.5); Absolute Segmented Neutrophil 19.2 10/cmm (1.6-7.1); Band Neutrophils Absolute 0.2 10^3/cmm (0.0-1.2); Eosinophils 0 %; Lymphocytes 4 %; Lymphocytes Absolute 0.9 10^3/cmm (1.2-3.4); Monocytes Absolute 1.8 10^3/cmm (0.1-0.6); Platelet Estimate Normal (Normal); Segmented Neutrophils 84 %; Total Cells Counted 100 (0-100)
[2022-04-10 11:12] LABS: Anisocytosis 1+; Hypochromasia 1+
[2022-04-10 11:17] VITALS: BP 159/67; PULSE 75; RESP 18; O2SAT 98
[2022-04-10] MEDS: doxycycline 100 mg Tablet PO (11:33)
[2022-04-10 12:16] LABS: Alanine Aminotransferase 99 U/L (0-41); Albumin Level 3.5 g/dL (3.5-5.2); Alkaline Phosphatase 94 U/L (40-130); Aspartate Amino Transferase 78 U/L (0-40); Blood Urea Nitrogen 28 mg/dL (8-23); Calcium 8.8 mg/dL (8.5-10.5); Carbon Dioxide 23 mmol/L (22-29); Chloride 102 mmol/L (98-107); Globulin 2.4 g/dL (1.3-4.6); Glucose 181 mg/dL (65-115); NT Pro B Type Natriuretic Pept 2226 pg/mL (0-450); Osmolality Calculated 288 mOsm/kg (285-295); Sodium 134 mmol/L (136-145); Total Bilirubin 0.6 mg/dL (0.15-1.2); Total Protein 5.9 g/dL (6.6-8.7)
[2022-04-10 12:19] LABS: Anion Gap 13.6 (5-19); Potassium 4.6 mmol/L (3.5-5.1)
== END 2022-04-10 11:42 | disposition home or self-care (01) ==
PROVIDERS: Emergency Provider Emergency Medicine; PCP Family Medicine
DX: J44.1 Chronic obstructive pulmonary disease with (acute) exacerbation (principal); I10 Essential (primary) hypertension; E11.9 Type 2 diabetes mellitus without complications; I48.91 Unspecified atrial fibrillation; I25.10 Atherosclerotic heart disease of native coronary artery without angina pectoris; Z87.891 Personal history of nicotine dependence
CPT/HCPCS: 36600; 71045; 80053; 82805; 83880; 85007; 85025; 93005; 94640; 96374; 99285; J2930; J7614

== ENCOUNTER 2022-04-27 15:01 | Emergency (ER) | payer OTHER, SELFPAY ==
--- NOTE | 2022-04-27 15:03 | ECG_ITS ---
[facility] Test Date: 2022-04-27 Pat Name: Anuj Irving Department: Room: Gender: Male Change Room Attendant: : 1945 Requested By: Jignesh Umaña Order Number: [id number] Dolly MD: Tito Hernandez M.D. Measurements Intervals [place] Rate: 89 P: MT: QRS: 65 QRSD: 113 T: 90 QT: 345 QTc: 422 Interpretive Statements ATRIAL FIBRILLATION LOW QRS VOLTAGE IN PRECORDIAL LEADS [QRS DEFLECTION < 1.0 mV IN CHEST LEADS] POSSIBLE ANTERIOR MYOCARDIAL INFARCTION , OF INDETERMINATE AGE [30 ms Q WAVE IN V3/V4, OR R < 0.2 mV IN V4] Compared to ECG 04/10/2022 10:11:17 Low QRS voltage now present Atrial fibrillation no longer present Myocardial infarct finding still present Electronically Signed On 04-27-2022 17:35:54 CDT by Tito Hernandez M.D. [email or web address]
--- NOTE | 2022-04-27 15:03 | XR_ITS ---
WS: [id number] XR chest 1V portable [id number] REASON FOR EXAM: sob FINDINGS: The chest is unchanged compared to previous examination 04/10/2022. The chest is unchanged compared to previous examination of 04/10/2022. Previous aortocoronary artery bypass surgery and poor seen aortic valve replacement. Mild cardiomegal y. Chronic lung opacity and lucencies compatible with central lobar emphysema. Blunting of the costophrenic angles. No acute pulmonary parenchymal or pleural abnormality is identified. XR/XR chest 1V portable [id number] IMPRESSION: Stable abnormal chest.
[2022-04-27 15:05] VITALS: BP 133/52; PULSE 91; RESP 24; TEMP 36.8; O2SAT 97; BMI 25.7
--- NOTE | 2022-04-27 15:31 | ED_ITS ---
Documented by User: MINDA Cook 04/28/22 07:21 HPI - SOB/Dyspnea General: Chief Complaint: Shortness of Breath/Dyspnea Stated Complaint: SOB Time Seen by Provider: 04/27/22 15:09 History of Present Illness: HPI Narrative: Patient is a 77-year-old male who comes to the ED with shortness of breath. Patient has a history of CAD, hypertension, diabetes and COPD. he is on 2 L of oxygen continuously at home. Shortness of breath started today when he went out and did grocery shopping. He had his oxygen with him and was wearing it but forgot to turn it on. His shortness of breath progressed and got worse while he was out shopping and when he came home he noticed the oxygen was not turned on and then he turned on his oxygen. He called EMS and they came out and evaluated patient and brought him here to the ED for further evaluation. They gave him a dose of terbutaline and Decadron while in route patient says that shortness of breath is completely resolved. Denies any chest pain or cough. Here in the ED he says he feels completely normal and denies any current shortness of breath or chest pain. Associated symptoms: Deny abdominal pain, chest pain, fever(s), nausea, orthopnea, palpitations or vomiting Review of Systems Const: Denies: fever(s), chills or fatigue Eyes: Denies: change in vision or eye discomfort ENMT: Denies: throat pain, odynophagia, nasal discharge or nasal congestion Card: Denies: chest pain, palpitations, edema, swelling of feet/ankles, dyspnea on exertion or orthopnea Resp: Reports: dyspnea; Denies: productive cough or non-productive cough GI: Denies: abdominal pain, nausea, vomiting, diarrhea, constipation or hematochezia : Denies: flank pain, difficulty urinating, dysuria or hematuria Musc: Denies: neck pain, back pain or extremity swelling Skin/Breast: Denies: rash or new lesions Neuro: Denies: headache(s), numbness in extremities or weakness in extremities [facility] ED PFSH: Medical History Acute exacerbation of chronic obstructive pulmonary disease (COPD) Acute kidney injury Atrial fibrillation COPD (chronic obstructive pulmonary disease) Coronary artery disease Diabetes mellitus HTN (hypertension) Ischemic cardiomyopathy Moderate aortic stenosis Rhabdomyolysis Suspected 2019-nCoV infection Surgical History 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 Family History Mother Stroke Denies family history of Diabetes CAD (coronary artery disease) Clotting disorder Dementia Social History Smoking and tobacco status: light tobacco smoker Quit status (tobacco): has quit using tobacco Year quit tobacco: 2016 Former quit date comment: smoked 1 pack per day x 36 years Alcohol intake: current Household members: spouse Housing: House 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 Const: COMMON NORMALS: patient oriented x3 HENMT: COMMON NORMALS: normocephalic HEAD & SCALP: normocephalic MOUTH: Normal oral and palatal mucosa present THROAT: posterior oropharynx normal and uvula midline Neck/C-Spine: COMMON NORMALS: supple GENERAL: Yes normal visual inspection Resp: COMMON NORMALS: normal respiratory effort, No retractions, No use of accessory muscles and clear to auscultation bilaterally AUSCULTATION: clear to auscultation bilaterally Cardio: COMMON NORMALS: regular rate, regular rhythm, S1 normal heart sound present, S2 normal heart sound present, No gallops present (Cardio), No clicks present (Cardio), No murmurs present (Cardio) and Peripheral pulses 2+ throughout RATE: regular rate RHYTHM: regular rhythm HEART SOUNDS: S1 normal heart sound present and S2 normal heart sound present PERIPHERAL PULSES: Peripheral pulses 2+ throughout GI: COMMON NORMALS: Normal to inspection, nondistended, normoactive bowel sounds present, Soft to palpation, non-tender and no masses PALPATION: Yes Soft to palpation : COMMON NORMALS: Yes no CVA tenderness BLADDER/KIDNEY EXAM: Yes no CVA tenderness Back/Pelvis: COMMON NORMALS: no CVA tenderness Neuro: COMMON NORMALS: patient oriented x3 GAIT: Yes Normal gait present Course Vital Signs: Vital signs: Vital Signs Temperature 98.3 F 04/27/22 16:13 Pulse Rate 82 04/27/22 16:13 Respiratory Rate 19 H 04/27/22 16:13 Blood Pressure 123/56 04/27/22 16:13 Pulse Oximetry 99 04/27/22 16:13 Oxygen Delivery Me thod 04/27/22 15:05 Oxygen Flow Rate 2 04/27/22 15:05 MDM - SOB/Dyspnea Lab Data I reviewed the patient's lab results. : 04/27/22 15:20 04/27/22 15:20 Labs/Radiology: Radiology Impressions Chest X-Ray 04/27/22 15:03 IMPRESSION: Stable abnormal chest. Laboratory Results WBC 8.6 10^3/uL (4.0-10.0) 04/27/22 15:20 RBC 2.86 10^6/uL (4.1-5.3) L 04/27/22 15:20 Hgb 8.5 g/dL (11.7-16.6) L 04/27/22 15:20 Hct 26.7 % (42.0-52.0) L 04/27/22 15:20 MCV 93.4 fl (80-94) 04/27/22 15:20 MCH 29.7 pg (28.0-34.0) 04/27/22 15:20 MCHC 31.8 g/dL (30.0-36.0) 04/27/22 15:20 RDW 16.6 % (12.1-15.1) H 04/27/22 15:20 Plt Count 117 10^3/cmm (130-400) L 04/27/22 15:20 MPV 11.9 fL (7.4-10.4) H 04/27/22 15:20 Neut % (Auto) 71.4 % 04/27/22 15:20 Lymph % (Auto) 12.5 % 04/27/22 15:20 [place] % (Auto) 14.2 % 04/27/22 15:20 Eos % (Auto) 0.3 % 04/27/22 15:20 Baso % (Auto) 0.0 % 04/27/22 15:20 Neut # (Auto) 6.16 10^3/uL (1.8-7.7) 04/27/22 15:20 Lymph # (Auto) 1.1 10^3/uL (0.8-4.8) 04/27/22 15:20 [place] # (Auto) 1.2 10^3/uL (0.2-0.9) H 04/27/22 15:20 Eos # (Auto) 0.0 10^3/uL (0.0-0.8) 04/27/22 15:20 Baso # (Auto) 0.0 10^3/uL (0.0-0.1) 04/27/22 15:20 Nucleated RBC % (auto) 0 % 04/27/22 15:20 Nucleated RBCs # 0.0 /100WBC 04/27/22 15:20 Sodium 135 mmol/L (136-145) L 04/27/22 15:20 Potassium 4.1 mmol/L (3.5-5.1) 04/27/22 15:20 Chloride 98 mmol/L (98-107) 04/27/22 15:20 Carbon Dioxide 22 mmol/L (22-29) 04/27/22 15:20 Anion Gap 19.1 (5-19) H 04/27/22 15:20 BUN 17 mg/dL (8-23) 04/27/22 15:20 Creatinine 1.1 mg/dL (0.7-1.2) 04/27/22 15:20 GFR Calculation Not Reportable 04/27/22 15:20 Glucose 254 mg/dL (65-115) H 04/27/22 15:20 Calculated Osmolality 290 mOsm/kg (285-295) 04/27/22 15:20 Calcium 9.3 mg/dL (8.5-10.5) 04/27/22 15:20 Total Bilirubin 0.7 mg/dL (0.15-1.2) 04/27/22 15:20 AST 17 U/L (0-40) 04/27/22 15:20 ALT 17 U/L (0-41) 04/27/22 15:20 Alkaline Phosphatase 109 U/L (40-130) 04/27/22 15:20 Troponin T Baseline 65 ng/L (0-15) H 04/27/22 15:20 Troponin T 120 Minute 58.01 ng/L (0-15) H 04/27/22 17:20 Delta Troponin T -6.99 ABS# (0-10) L 04/27/22 17:20 NT-Pro-B Natriuret Pep 1311 pg/mL (0-450) H 04/27/22 15:20 Total Protein 6.4 g/dL (6.6-8.7) L 04/27/22 15:20 Albumin 3.8 g/dL (3.5-5.2) 04/27/22 15:20 Globulin 2.6 g/dL (1.3-4.6) 04/27/22 15:20 Discharge Plan Discharge Patient Disposition: Home Clinical Impression: COPD (chronic obstructive pulmonary disease) Qualifiers: COPD type: unspecified COPD Qualified Code(s): J44.9 - Chronic obstructive pulmonary disease, unspecified Condition: Stable Prescriptions: No Action multivitamin Tablet 1 tab PO DAILY omeprazole 40 mg Capsule,Delayed Release(Dr/Ec) 40 mg PO BID metformin 1,000 mg Tablet 1,000 mg PO BID lisinopril 10 mg Tablet 5 mg PO DAILY docusate sodium 100 mg Capsule 100 - 200 mg PO DAILY PRN (Reason: Constipation) albuterol sulfate 90 mcg/actuation Hfa Aerosol Inhaler 2 puff INHALATION Q4H PRN (Reason: Shortness Of Breath) Eliquis 5 mg Tablet 5 mg PO BID atorvastatin 80 mg Tablet 80 mg PO QPM cholecalciferol (vitamin D3) [Vitamin D3] 25 mcg (1,000 unit) Capsule 25 mcg PO DAILY insulin glargine [Lantus Solostar U-100 Insulin] 100 unit/mL (3 mL) Insulin Pen 15 unit SUBCUT BID@0630,1830 furosemide [Lasix] 40 mg Tablet 40 mg PO QAM glipizide 10 mg Tablet 20 mg PO BID prednisolone acetate 1 % Drops,Suspension 1 drp ophthalmic (eye) BID Rx Instructions: left eye fluticasone propion-salmeterol [Advair Diskus] 100-50 mcg/dose Blister With Device 1 inh INHALATION BID carboxymethylcellulose sodium [Refresh Liquigel] 1 % Drops, Liquid Gel 1 drp OPHTHALMIC (EYE) BID PRN (Reason: Dry Eye(S)) ferrous gluconate 324 mg (38 mg iron) Tablet 324 mg PO BID ipratropium-albuterol 20-100 mcg/actuation Mist 1 puff INHALATION Q6H PRN (Reason: Shortness Of Breath) digoxin 125 mcg (0.125 mg) Tablet 125 mcg PO DAILY DILT-XR 180 mg Capsule,Ext.Rel 24h Degradable 180 mg PO DAILY 30 Days Qty: 30 3RF Discharge Orders: Discharge ED (Routine); Ordered 04/27/22 Ordered By: Hamilton Rahman Referrals: Paola Moore MD [Primary Care Provider] - Discharge Diet: Usual diet Discharge Activity: Resume usual activity Patient Instructions: COPD (Chronic Obstructive Pulmonary Disease) (ED) Activity Restrictions/Additional Instructions: Continue with routine care. Follow-up with primary care for further instruction and evaluation. Return to ER for increased shortness of breath, chest pain, or new concerns. Sign Out Sign Out Data: Patient Sign Out occurred on 04/27/22 at 17:05. Patient's care was discussed, and care was transferred from to Hamilton Rahman. Coding Level of Care Code ED Clinical Account Specialist for Chg Fwd Exam Comprehensive Documented by User: SHLOMO Cifuentes 04/27/22 18:18 HPI - SOB/Dyspnea General: Chief Complaint: Shortness of Breath/Dyspnea Stated Complaint: SOB Time Seen by Provider: 04/27/22 15:09 PFSH ED PFSH: Medical History Acute exacerbation of chronic obstructive pulmonary disease (COPD) Acute kidney injury Atrial fibrillation COPD (chronic obstructive pulmonary disease) Coronary artery disease Diabetes mellitus HTN (hypertension) Ischemic cardiomyopathy Moderate aortic stenosis Rhabdomyolysis Suspected 2019-nCoV infection Surgical History 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 Family History Mother Stroke Denies family history of Diabetes CAD (coronary artery disease) Clotting disorder Dementia Social History Smoking and tobacco status: light tobacco smoker Quit status (tobacco): has quit using tobacco Year quit tobacco: 2016 Former quit date comment: smoked 1 pack per day x 36 years Alcohol intake: current Household members: spouse Housing: House 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 Patient had gone to the [facility] and was being evaluated and noticed to have a low oxygen level and complaints of shortness of breath. EMS was called and brought patient to the emergency department. It was noted that patient's oxygen tank that he had taken for his appointment at the [facility] was turned off causing patient to be short of breath. Patient was treated by EMS with 1 dose of steroid and terbutaline. Patient was significantly improved on arrival to the ER with oxygen in place. Physical exam was unremarkable. Laboratory values noted a troponin of 65 which patient does tend to run a elevated troponin, the second troponin came down to 58 and showed a delta decline. BNP was lower than normal in the 1100s. CBC did note some anemia with patient although patient is chronically low in the 9000's. Remainder of labs were unremarkable. Patient felt better and wanted to be discharged home. Differential diagnosis included but not limited to ACS, pneumonia, exacerbation of COPD. Lab Data : 04/27/22 15:20 04/27/22 15:20 Labs/Radiology: Radiology Impressions Chest X-Ray 04/27/22 15:03
[2022-04-27 15:36] LABS: Eosinophils % 0.3 %; Hematocrit 26.7 % (42.0-52.0); Hemoglobin 8.5 g/dL (11.7-16.6); Lymphocytes # 1.1 10^3/uL (0.8-4.8); Lymphocytes % 12.5 %; Mean Corpuscular HGB Conc 31.8 g/dL (30.0-36.0); Mean Corpuscular Hemoglobin 29.7 pg (28.0-34.0); Mean Corpuscular Volume 93.4 fl (80-94); Mean Platelet Volume 11.9 fL (7.4-10.4); Monocytes # 1.2 10^3/uL (0.2-0.9); Monocytes % 14.2 %; Neutrophils # 6.16 10^3/uL (1.8-7.7); Neutrophils % 71.4 %; Nucleated Red Blood Cells % 0 %; Platelet Count 117 10^3/cmm (130-400); Red Blood Count 2.86 10^6/uL (4.1-5.3); Red Cell Distribution Width 16.6 % (12.1-15.1); White Blood Count 8.6 10^3/uL (4.0-10.0)
[2022-04-27 15:40] VITALS: PULSE 94; RESP 20; O2SAT 98
[2022-04-27 15:55] LABS: Troponin(5th) Baseline 65 ng/L (0-15)
[2022-04-27 16:12] LABS: Alanine Aminotransferase 17 U/L (0-41); Albumin Level 3.8 g/dL (3.5-5.2); Alkaline Phosphatase 109 U/L (40-130); Anion Gap 19.1 (5-19); Aspartate Amino Transferase 17 U/L (0-40); Blood Urea Nitrogen 17 mg/dL (8-23); Calcium 9.3 mg/dL (8.5-10.5); Carbon Dioxide 22 mmol/L (22-29); Chloride 98 mmol/L (98-107); Globulin 2.6 g/dL (1.3-4.6); Glucose 254 mg/dL (65-115); NT Pro B Type Natriuretic Pept 1311 pg/mL (0-450); Osmolality Calculated 290 mOsm/kg (285-295); Potassium 4.1 mmol/L (3.5-5.1); Sodium 135 mmol/L (136-145); Total Bilirubin 0.7 mg/dL (0.15-1.2); Total Protein 6.4 g/dL (6.6-8.7)
[2022-04-27 16:13] VITALS: BP 123/56; PULSE 82; RESP 19; TEMP 36.8; O2SAT 99
[2022-04-27 18:08] LABS: Troponin 5 2HR 58.01 ng/L (0-15)
== END 2022-04-27 18:40 | disposition home or self-care (01) ==
PROVIDERS: Physician Assistant; Emergency Provider Nurse Practitioner Family; PCP Family Medicine
DX: J44.9 Chronic obstructive pulmonary disease, unspecified (principal); E11.9 Type 2 diabetes mellitus without complications; I10 Essential (primary) hypertension; I48.91 Unspecified atrial fibrillation; I25.5 Ischemic cardiomyopathy; I25.10 Atherosclerotic heart disease of native coronary artery without angina pectoris; Z79.4 Long term (current) use of insulin; Z79.84 Long term (current) use of oral hypoglycemic drugs; Z79.01 Long term (current) use of anticoagulants; Z87.891 Personal history of nicotine dependence; Z95.3 Presence of xenogenic heart valve; Z95.1 Presence of aortocoronary bypass graft; Z99.81 Dependence on supplemental oxygen
CPT/HCPCS: 71045; 80053; 83880; 84484; 85025; 93005; 99285

== ENCOUNTER 2022-06-20 17:02 | Inpatient (IN) | payer OTHER, SELFPAY ==
[2022-06-20 17:31] VITALS: BP 127/48; PULSE 59; RESP 16; TEMP 36.4; O2SAT 93
[2022-06-20 18:53] LABS: Basophils % 0.1 %; Eosinophils # 0.1 10^3/uL (0.0-0.8); Eosinophils % 0.6 %; Hematocrit 30.5 % (42.0-52.0); Hemoglobin 9.7 g/dL (11.7-16.6); Lymphocytes # 1.2 10^3/uL (0.8-4.8); Lymphocytes % 11.5 %; Mean Corpuscular HGB Conc 31.8 g/dL (30.0-36.0); Mean Corpuscular Hemoglobin 29.6 pg (28.0-34.0); Mean Platelet Volume 12.3 fL (7.4-10.4); Monocytes # 1.3 10^3/uL (0.2-0.9); Monocytes % 12.2 %; Neutrophils # 7.89 10^3/uL (1.8-7.7); Neutrophils % 74.3 %; Nucleated Red Blood Cells % 0 %; Platelet Count 141 10^3/cmm (130-400); Red Blood Count 3.28 10^6/uL (4.1-5.3); Red Cell Distribution Width 15.7 % (12.1-15.1); White Blood Count 10.6 10^3/uL (4.0-10.0)
[2022-06-20 19:15] LABS: Troponin(5th) Baseline 50 ng/L (0-15)
[2022-06-20 19:19] LABS: Alanine Aminotransferase 10 U/L (0-41); Albumin Level 4.4 g/dL (3.5-5.2); Alkaline Phosphatase 93 U/L (40-130); Anion Gap 18.2 (5-19); Aspartate Amino Transferase 21 U/L (0-40); Blood Urea Nitrogen 29 mg/dL (8-23); Carbon Dioxide 21 mmol/L (22-29); Chloride 91 mmol/L (98-107); Globulin 2.4 g/dL (1.3-4.6); Glucose 137 mg/dL (65-115); Lipase 75 U/L (13-60); Osmolality Calculated 268 mOsm/kg (285-295); Potassium 5.2 mmol/L (3.5-5.1); Sodium 125 mmol/L (136-145); Total Bilirubin 0.4 mg/dL (0.15-1.2); Total Protein 6.8 g/dL (6.6-8.7)
--- NOTE | 2022-06-20 19:53 | W.ED.NAVMDI ---
HPI - Nausea/Vomiting/Diarrhea General: Chief complaint: Nausea/Vomiting/Diarrhea Stated complaint: weakness Time Seen by Provider: 06/20/22 19:40 History of Present Illness: 77-year-old male presents emergency department chief complaint of having some epigastric abdominal pain in which she had episode couple of his of vomiting just prior to arrival reports he feels much improved patient reports having a longstanding history of cardiac issues did not call any recent chest pain back pain or any current abdominal pain patient does report his heart rate does run low at times, the patient does remark cardiac medications earlier today. Patient reports having no other associated symptoms. Besides he had several episodes of nonbloody emesis prior to arrival. Associated nausea: Yes Associated symtoms: Reports fatigue, malaise and nausea; Denies anxiety, change in vision, chest pain, headache(s) or palpitations Review of Systems General: Reports: 10 or more systems reviewed and unremarkable except in HPI and below Const: Reports: fatigue and malaise; Denies: fever(s) or chills Eyes: Denies: change in vision or blurry vision Card: Denies: chest pain or palpitations Resp: Denies: dyspnea or productive cough GI: Reports: abdominal pain, nausea and vomiting : Denies: flank pain Musc: Denies: extremity pain or extremity swelling Skin/Breast: Denies: rash or pruritus Neuro: Denies: headache(s) Psych: Denies: anxiety or depression Marvel/Lymph: Denies: easy bleeding All/Imm: Denies: urticaria, throat swelling or facial swelling PFS ED PFSH: Medical History Acute exacerbation of chronic obstructive pulmonary disease (COPD) Acute kidney injury Atrial fibrillation COPD (chronic obstructive pulmonary disease) Coronary artery disease Diabetes mellitus HTN (hypertension) Ischemic cardiomyopathy Moderate aortic stenosis Rhabdomyolysis Suspected 2019-nCoV infection Surgical History 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 Family History Mother Stroke Denies family history of Diabetes CAD (coronary artery disease) Clotting disorder Dementia Social History Smoking and tobacco status: light tobacco smoker Quit status (tobacco): has quit using tobacco Year quit tobacco: 2017 Former quit date comment: smoked 1 pack per day x 36 years Alcohol intake: current Household members: spouse Housing: House 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 Const: COMMON NORMALS: no acute distress, patient oriented x3 and healthy appearing HENMT: COMMON NORMALS: normocephalic and atraumatic HEAD & SCALP: normocephalic and atraumatic Eye: COMMON NORMALS: Equal, round and reactive pupils present and EOMs intact bilaterally PUPIL: Yes Equal, round and reactive pupils present Neck/C-Spine: COMMON NORMALS: full ROM, supple and no JVD Lymph: LYMPHATIC: no lymphadenopathy noted Chest: COMMONS NORMALS: normal inspection of the chest and normal palpation of entire chest wall Resp: COMMON NORMALS: normal respiratory effort, No retractions and clear to auscultation bilaterally EFFORT & INSPECTION: Yes able to speak in complete sentences and Yes symmetric chest movement AUSCULTATION: clear to auscultation bilaterally Cardio: COMMON NORMALS: no JVD, regular rate and regular rhythm RATE: regular rate RHYTHM: regular rhythm GI: COMMON NORMALS: Normal to inspection, nondistended, normoactive bowel sounds present, Soft to palpation and non-tender INSPECTION: Yes normal to inspection PALPATION: Yes Soft to palpation : COMMON NORMALS: Yes no CVA tenderness BLADDER/KIDNEY EXAM: Yes no CVA tenderness Back/Pelvis: COMMON NORMALS: no CVA tenderness Extremity: COMMON NORMALS: normal to inspection and full ROM Neuro: COMMON NORMALS: patient oriented x3, CN's II-XII intact bilaterally, moves all extremities and no focal motor deficits Psych: COMMON NORMALS: mental status grossly normal, Normal thought process present, cooperative and normal affect THOUGHT PROCESS: Normal thought process present Skin: COMMON NORMALS: no rashes or lesions noted GENERAL SKIN EXAM: no rashes or lesions noted Course Vital Signs: Vital signs: Vital Signs Temperature 97.6 F 06/20/22 17:31 Pulse Rate 59 L 06/20/22 17:31 Respiratory Rate 16 06/20/22 17:31 Blood Pressure 127/48 06/20/22 17:31 Pulse Oximetry 93 06/20/22 17:31 Oxygen Delivery Me thod 06/20/22 17:31 MDM - Nausea/Vomiting/Diarrhea Medical Decision Making Due to the patient's symptoms and condition lab work and imaging will be obtained we will continue to follow did note to the patient his heart rates been running in the high 40s upon his arrival patient reports he is chronic for him he is not recalling any recent chest pain or palpitations we will be doing a basic cardiac work-up patient reports his abdominal pain is since this resolved obtain basic lab work on his abdomen as well patient continues to be very symptomatic and being very bradycardic have witnessed the rate get down to the low 30s this is suggestive of a calcium channel overdose patient's blood pressure also continue to get lower with time which witness of blood pressure less than 90/40 due to this patient be treated the calcium channel overdose in which glucagon and calcium gluconate will be provided as well as IV fluids patient's blood pressure and heart rate did not respond to fluids. Patient did have a CT imaging the abdomen pelvis obtained that came back unremarkable patient did have several slight lab abnormalities include his chronic renal failure and slightly elevated troponins discussed the patient's case with the on-call hospitalist Dr. Gray is recommended placement in the ICU at this time. Lab Data 06/20/22 18:23 06/20/22 18:23 Radiology Impressions Chest/Abdomen X-ray 06/20/22 19:55 IMPRESSION: No acute findings. Abdomen/Pelvis CT 06/20/22 20:07 IMPRESSION: 1. No acute findings. 2. Punctate cholelithiasis. 3. Infrarenal abdominal aortic aneurysm measuring up to 3.4 cm. COMMENTS: Consistent with the [place] [employer]'s Incidental Findings Committee white paper (J Am Kyara Radiol 2018): Any incidental renal lesion less than 1 cm or classified as too small to characterize, or any incidental cystic renal lesion characterized as simple-appearing, is likely benign. No follow-up imaging is recommended for these lesions per consensus recommendations based on imaging criteria. Laboratory Results WBC 10.6 10^3/uL (4.0-10.0) H 06/20/22 18: RBC 3.28 10^6/uL (4.1-5.3) L 06/20/22 18:23 Hgb 9.7 g/dL (11.7-16.6) L 06/20/22 18:23 Hct 30.5 % (42.0-52.0) L 06/20/22 18:23 MCV 93.0 fl (80-94) 06/20/22 18:23 MCH 29.6 pg (28.0-34.0) 06/20/22 18: MCHC 31.8 g/dL (30.0-36.0) 06/20/22 18: RDW 15.7 % (12.1-15.1) H 06/20/22 18: Plt Count 141 10^3/cmm (130-400) 06/20/22 18: MPV 12.3 fL (7.4-10.4) H 06/20/22 18: Neut % (Auto) 74.3 % 06/20/22 18: Lymph % (Auto) 11.5 % 06/20/22 18: [place] % (Auto) 12.2 % 06/20/22 18: Eos % (Auto) 0.6 % 06/20/22 18: Baso % (Auto) 0.1 % 06/20/22 18: Neut # (Auto) 7.89 10^3/uL (1.8-7.7) H 06/20/22 18: Lymph # (Auto) 1.2 10^3/uL (0.8-4.8) 06/20/22 18: [place] # (Auto) 1.3 10^3/uL (0.2-0.9) H 06/20/22 18: Eos # (Auto) 0.1 10^3/uL (0.0-0.8) 06/20/22 18: Baso # (Auto) 0.0 10^3/uL (0.0-0.1) 06/20/22 18: Nucleated RBC % (auto) 0 % 06/20/22 18: Nucleated RBCs # 0.0 /100WBC 06/20/22 18: Sodium 125 mmol/L (136-145) L 06/20/22 18: Potassium 5.2 mmol/L (3.5-5.1) H 06/20/22 18: Chloride 91 mmol/L (98-107) L 06/20/22 18: Carbon Dioxide 21 mmol/L (22-29) L 06/20/22 18: Anion Gap 18.2 (5-19) 06/20/22 18: BUN 29 mg/dL (8-23) H 06/20/22 18: Creatinine 1.6 mg/dL (0.7-1.2) H 06/20/22 18: GFR Calculation Not Reportable 06/20/22 18: Glucose 137 mg/dL (65-115) H 06/20/22 18: POC Glucose 178 mg/dL (70-110) H 06/20/22 21:42 Calculated Osmolality 268 mOsm/kg (285-295) L 06/20/22 18: Calcium 9.0 mg/dL (8.5-10.5) 06/20/22 18: Total Bilirubin 0.4 mg/dL (0.15-1.2) 06/20/22 18: AST 21 U/L (0-40) 06/20/22 18: ALT 10 U/L (0-41) 06/20/22 18: Alkaline Phosphatase 93 U/L (40-130) 06/20/22 18: Troponin T Baseline 50 ng/L (0-15) H 06/20/22 18: Troponin T 120 Minute 44.39 ng/L (0-15) H 06/20/22 20:08 Delta Troponin T -5.61 ABS# (0-10) L 06/20/22 20:08 C-Reactive Protein 3.0 mg/L (0.0-4.9) 06/20/22 20:08 NT-Pro-B Natriuret Pep 1008 pg/mL (0-450) H 06/20/22 20:08 Total Protein 6.8 g/dL (6.6-8.7) 06/20/22 18: Albumin 4.4 g/dL (3.5-5.2) 06/20/22 18: Globulin 2.4 g/dL (1.3-4.6) 06/20/22 18: Lipase 75 U/L (13-60) H 06/20/22 18: Urine Color Yellow (Yellow) 06/20/22 20:21 Urine Appearance Clear (CLEAR) 06/20/22 20: Urine pH 5 (5-7) 06/20/22 20: Ur Specific [place] 1.015 (1.005-1.030) 06/20/22 20:21 Urine Protein Neg (Negative) 06/20/22 20:21 Urine Glucose (UA) Norm (Normal) 06/20/22 20:21 Urine Ketones Negative (Negative) 06/20/22 20:21 Urine Blood Neg (Negative) 06/20/22 20:21 Urine Nitrate Negative (Negative) 06/20/22 20:21 Urine Bilirubin Neg (Negative) 06/20/22 20:21 Urine Urobilinogen Neg mg/dL (Negative) 06/20/22 20:21 Ur Leukocyte Esterase 1+ (Negative) H 06/20/22 20:21 Urine RBC None /hpf (0-2) 06/20/22 20:21 Urine WBC 0-4 /hpf (0-5) H 06/20/22 20:21 Ur Squamous Epith Cells None /hpf (0-5) 06/20/22 20:21 Amorphous Sediment Not Reportable 06/20/22 20:21 Urine Bacteria None /hpf (NONE) 06/20/22 20:21 Hyaline Casts 0-4 /lpf H 06/20/22 20:21 Discharge Plan Discharge Patient Disposition: Admitted As Inpatient Clinical Impression: Symptomatic bradycardia, Poisoning by calcium-channel blockers, Chronic kidney failure, Vomiting, Abdominal pain Condition: Stable Prescriptions: No Action multivitamin Tablet 1 tab PO DAILY omeprazole 40 mg Capsule,Delayed Release(Dr/Ec) 40 mg PO BID metformin 1,000 mg Tablet 1,000 mg PO BID lisinopril 10 mg Tablet 5 mg PO DAILY docusate sodium 100 mg Capsule 100 - 200 mg PO DAILY PRN (Reason: Constipation) albuterol sulfate 90 mcg/actuation Hfa Aerosol Inhaler 2 puff INHALATION Q4H PRN (Reason: Shortness Of Breath) Eliquis 5 mg Tablet 5 mg PO BID atorvastatin 80 mg Tablet 80 mg PO QPM cholecalciferol (vitamin D3) [Vitamin D3] 25 mcg (1,000 unit) Capsule 25 mcg PO DAILY insulin glargine [Lantus Solostar U-100 Insulin] 100 unit/mL (3 mL) Insulin Pen 15 unit SUBCUT BID@0630,1830 furosemide [Lasix] 40 mg Tablet 40 mg PO QAM glipizide 10 mg Tablet 20 mg PO BID prednisolone acetate 1 % Drops,Suspension 1 drp ophthalmic (eye) BID Rx Instructions: left eye fluticasone propion-salmeterol [Advair Diskus] 100-50 mcg/dose Blister With Device 1 inh INHALATION BID carboxymethylcellulose sodium [Refresh Liquigel] 1 % Drops, Liquid Gel 1 drp OPHTHALMIC (EYE) BID PRN (Reason: Dry Eye(S)) ferrous gluconate 324 mg (38 mg iron) Tablet 324 mg PO BID ipratropium-albuterol 20-100 mcg/actuation Mist 1 puff INHALATION Q6H PRN (Reason: Shortness Of Breath) digoxin 125 mcg (0.125 mg) Tablet 125 mcg PO DAILY DILT-XR 180 mg Capsule,Ext.Rel 24h Degradable 180 mg PO DAILY 30 Days Qty: 30 3RF Referrals: Paola Moore MD [Primary Care Provider] - Coding Level of Care Code ED Sliding Joint Maker for Chg Fwd Exam Comprehensive
--- NOTE | 2022-06-20 19:55 | XRR_ITS ---
PROCEDURE INFORMATION: Exam: XR Complete Acute Abdomen Series Including Chest Exam date and time: 06/20/2022 9:22 PM Age: 77 years old Clinical indication: Vomiting; Prior surgery; Surgery date: 6+ months; Surgery type: Cabg TECHNIQUE: Imaging protocol: Radiologic exam. Complete acute abdomen series, including 2 or more views of the abdomen and a single view chest. COMPARISON: CT abdomen pelvis w con* [id number] 06/20/2022 8:35 PM FINDINGS: Lungs: No consolidation. Pleural spaces: No pleural effusions. No pneumothorax. Heart/Mediastinum: Sequela of prior CABG. No cardiomegaly. Gastrointestinal tract: Normal. No bowel dilation. Intraperitoneal space: Normal. No free air. Bones/joints: Sternotomy wires noted. No acute fracture. Soft tissues: Normal. XR/XR acute abdomen series [id number] IMPRESSION: No acute findings.
--- NOTE | 2022-06-20 19:56 | ECG_ITS ---
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 Measurements Intervals [place] Rate: 43 P: 0 [place]: 0 QRS: 67 QRSD: 123 T: 55 QT: 394 QTc: 333 Interpretive Statements ATRIAL FIBRILLATION WITH SLOW VENTRICULAR RESPONSE ANTEROSEPTAL MYOCARDIAL INFARCTION , OF INDETERMINATE AGE [40+ ms Q WAVE IN V1-V4] Diffuse nonspecific ST-T changes Compared to ECG 04/27/2022 15:15:07 No significant changes Electronically Signed On 06-22-2022 14:55:12 FISHER EEL by Ariana Schwartz M.D. [id number]
--- NOTE | 2022-06-20 20:07 | CTR_ITS ---
PROCEDURE INFORMATION: Exam: CT Abdomen And Pelvis With Contrast Exam date and time: 06/20/2022 8:35 PM Age: 77 years old Clinical indication: Vomiting; Abdominal pain; Epigastric; Additional info: Epigastric abdominal pain TECHNIQUE: Imaging protocol: Computed tomography of the abdomen and pelvis with contrast. Radiation optimization: All CT scans at this facility use at least one of these dose optimization techniques: automated exposure control; mA and/or kV adjustment per patient size (includes targeted exams where dose is matched to clinical indication); or iterative reconstruction. Contrast material: OMNI 350; Contrast volume: 70 ml; Contrast route: INTRAVENOUS (IV); COMPARISON: US renal BI with PV bladder 09/14/2021 8:42 AM RADIATION DOSE METRICS: Total DLP (mGy-cm): 633.63 FINDINGS: Liver: No mass. Gallbladder and bile ducts: Contracted gallbladder with punctate gallstone. No ductal dilation. Pancreas: Normal. No ductal dilation. Spleen: Normal. No splenomegaly. Adrenal glands: Normal. No mass. Kidneys and ureters: 3 cm cyst noted in the upper pole of the right kidney. No hydronephrosis. Stomach and bowel: Colonic diverticulosis. No obstruction. No mucosal thickening. Appendix: No evidence of appendicitis. Intraperitoneal space: Unremarkable. No free air. No significant fluid collection. Vasculature: Infrarenal abdominal aortic aneurysm measuring up to 3.4 cm in size. Lymph nodes: Unremarkable. No enlarged lymph nodes. Urinary bladder: Unremarkable as visualized. Reproductive: Unremarkable as visualized. Bones/joints: No acute fracture. Soft tissues: Unremarkable. CT/CT abdomen pelvis w con* [id number] IMPRESSION: 1. No acute findings. 2. Punctate cholelithiasis. 3. Infrarenal abdominal aortic aneurysm measuring up to 3.4 cm. COMMENTS: Consistent with the [employer]'s Incidental Findings Committee white paper (J Am Kyara Radiol 2018): Any incidental renal lesion less than 1 cm or classified as too small to characterize, or any incidental cystic renal lesion characterized as simple-appearing, is likely benign. No follow-up imaging is recommended for these lesions per consensus recommendations based on imaging criteria.
[2022-06-20] MEDS: sodium chloride 0.9% 500 ML IV (20:14)
[2022-06-20] MEDS: ondansetron 2 mg/ML SDV 2 mL 4 MG IVP ×2 (20:14→22:49)
[2022-06-20 20:33] LABS: Troponin 5 2HR 44.39 ng/L (0-15)
[2022-06-20 20:35] LABS: Troponin 5 2HR Delta -5.61 ABS# (0-10)
[2022-06-20 20:41] LABS: NT Pro B Type Natriuretic Pept 1008 pg/mL (0-450)
[2022-06-20 21:11] LABS: Urine Appearance Clear (CLEAR); Urine Color Yellow (Yellow)
[2022-06-20 21:12] LABS: Add Urine Microscopic? YES; Bilirubin Urine Neg (Negative); Blood Urine Neg (Negative); Glucose Urine UA Norm (Normal); Ketones Urine Negative (Negative); Leukocyte Esterase Urine 1+ (Negative); Nitrate Urine Negative (Negative); Protein Urine Neg (Negative); Specific Gravity, Urine 1.015 (1.005-1.030); Urobilinogen Urine Neg (Negative); pH Urine 5 (5-7)
[2022-06-20] MEDS: iohexol 350 mg/mL 500 mL Btl (per mL) IV (21:12)
[2022-06-20 21:13] LABS: Add Urine Culture? No; Hyaline Casts Urine 0-4 /lpf; WBC Urine 0-4 /hpf (0-5)
[2022-06-20] MEDS: calcium gluconate 0.9% NaCL 1 GM/50 ML PREMIX IV (21:46)
[2022-06-20] MEDS: sodium chloride 0.9% 1,000 ML 125 ML IV (21:47)
--- NOTE | 2022-06-20 21:52 | ECG_ITS ---
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 Measurements Intervals [place] Rate: 55 P: -79 MS: 148 QRS: 62 QRSD: 124 T: -68 QT: 406 QTc: 389 Interpretive Statements SINUS BRADYCARDIA ANTERIOR MYOCARDIAL INFARCTION , PROBABLY RECENT [40+ ms Q WAVE AND/OR ST/T ABNORMALITY IN V3/V4] ACUTE [place] Compared to ECG 06/20/2022 19:41:15 Atrial fibrillation no longer present Myocardial infarct finding still present Electronically Signed On 06-22-2022 14:55:31 SUBSTANCE ABUSE THERAPIST by Ariana Schwartz M.D. [email or web address]/store/OM/[id number]
[2022-06-20 21:54] LABS: Glucose Point of Care 178 mg/dL (70-110)
--- NOTE | 2022-06-20 22:48 | P.HP_ITS ---
Providers/Chief Complaint Admitting Physician: Isatu Gray MD Primary Care Provider: Paola Moore MD Chief Complaint: weakness History of Present Illness Anuj Irving is a 77 year old male past medical history of COPD, atrial fibrillation, coronary artery disease, diabetes mellitus, hypertension, ischemic cardiomyopathy, moderate aortic stenosis, rhabdomyolysis presented to the hospital today with complaint of epigastric abdominal pain. He also had vomiting just prior to arrival to the ER and vomited again once he came here. He was found to be bradycardic into the 30s. He states he does have low heart rate at home as well from time to time. He did take all his medications today as directed. He has had several episodes of vomiting today. Reports feeling tired overall. Denies any vision changes, chest pain, headache, palpitations. Generally feels weak. He says earlier he was also short of breath but now is feeling better. He has been feeling lightheaded from time to time as well all day today. He is chronically on oxygen 2 L nasal cannula at home around-the- clock. He says he does smoke cigars once in a while. Lives at home with his . Denies any lower extremity edema. No blood in the vomitus noted. ED course: On arrival to ER blood pressure 127/48, respiratory 16, pulse high 30s to low 40s. Patient states this is chronic for him. ER suspected calcium channel olivia overdose as patient's blood pressure continuing to get lower over time as well. Patient was given 5 mg of glucagon and calcium gluconate x1. Heart rate occasionally would go into 50s but dropped out again. He also was given IV fluids. Heart rate and blood pressure did not respond to IV fluids either. CT abdomen pelvis was done which did not show any acute pathology. Patient's labs remarkable for WBC 10.6, hemoglobin 9.7, sodium 125, potassium 5.2, chloride 91, CO2 21, creatinine 1.6, magnesium 1.5, BNP 1000, lipase 75, UA positive for 1+ leukocyte esterase, WBC 0-4, hyaline cast 0-4. I have requested a digoxin level at this time. It has returned at 1.6. Medications/Allergies Home Medications Medication Instructions Recorded Confirmed Last Taken Type albuterol sulfate 90 mcg/actuation 2 puff inhalation Q4H PRN 07/12/21 06/21/22 Unknown History aerosol inhaler Shortness Of Breath apixaban 5 mg tablet (Eliquis) 5 mg PO BID 07/12/21 04/04/22 08/18/21 06:00 History atorvastatin 80 mg tablet 80 mg PO QPM 07/12/21 06/21/22 08/18/21 06:00 History cholecalciferol (vitamin D3) 25 25 mcg PO DAILY 07/12/21 04/04/22 08/18/21 06:00 History mcg (1,000 unit) capsule (Vitamin D3) docusate sodium 100 mg capsule 100 - 200 mg PO DAILY PRN 07/12/21 04/04/2207/11 History Constipation insulin glargine 100 unit/mL (3 15 unit SUBCUT BID@0630,1830 07/12/21 04/04/22 11/26/21 History mL) subcutaneous pen (Lantus Solostar U-100 Insulin) lisinopril 10 mg tablet 5 mg PO DAILY 07/12/21 04/04/22 08/18/21 06:00 History metformin 1,000 mg tablet 1,000 mg PO BID 07/12/21 04/04/22 08/18/21 06:00 History multivitamin 1 tab PO DAILY 07/12/21 04/04/22 08/18/21 06:00 History omeprazole 40 mg capsule,delayed 40 mg PO BID 07/12/21 04/04/22 08/18/21 06:00 History release carboxymethylcellulose sodium 1 % 1 drp ophthalmic (eye) BID PRN Dry 11/26/21 04/04/22 Unknown History eye liquid gel drops (Refresh Eye(S) Liquigel) ferrous gluconate 324 mg (38 mg 324 mg PO BID 11/26/21 04/04/22 Unknown History iron) tablet fluticasone 100 mcg-salmeterol 50 1 inh inhalation BID 11/26/21 06/21/22 06/20/22 History mcg/dose blistr powdr for inhalation (Advair Diskus) furosemide 40 mg tablet (Lasix) 40 mg PO QAM 11/26/21 04/04/22 Unknown History glipizide 10 mg tablet 20 mg PO BID 11/26/21 04/04/22 Unknown History ipratropium 20 mcg-albuterol 100 1 puff inhalation Q6H PRN 11/26/21 06/21/22 Unknown History mcg/actuation mist for inhalation Shortness Of Breath prednisolone acetate 1 % eye 1 drp ophthalmic (eye) BID 11/26/21 04/04/22 Unknown History drops,suspension digoxin 125 mcg (0.125 mg) tablet 125 mcg PO DAILY 03/03/22 04/04/22 Unknown History diltiazem HCl 180 mg 180 mg PO DAILY 30 days #30 caps 04/06/22 Unknown Rx capsule,extended release 24 hr, controlled (DILT-XR) Allergies Allergy/AdvReac Type Severity Reaction Status Date / Time No Known Allergies Allergy Verified 11/26/21 12:51 PFSH Acute PFSH: Medical History Acute exacerbation of chronic obstructive pulmonary disease (COPD) Acute kidney injury Atrial fibrillation COPD (chronic obstructive pulmonary disease) Coronary artery disease Diabetes mellitus HTN (hypertension) Ischemic cardiomyopathy Moderate aortic stenosis Rhabdomyolysis Suspected 2019-nCoV infection Surgical History 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 Family History Mother Stroke Denies family history of Diabetes CAD (coronary artery disease) Clotting disorder Dementia Social History Smoking and tobacco status: light tobacco smoker Quit status (tobacco): has quit using tobacco Year quit tobacco: 2016 Former quit date comment: smoked 1 pack per day x 36 years Alcohol intake: current Household members: spouse Housing: House 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 No acute respiratory distress. HEENT: Normocephalic, atraumatic, EOMI, breathing normally. Cardio: Bradycardic, normal S1-S2 Respiratory: Good bilateral air entry, no wheezes no rhonchi appreciated GI: Abdomen soft, nontender, nondistended, bowel sounds + Behavior: Appropriate and cooperative Extremities: No edema, no cyanosis Data 06/20/22 18:23 06/20/22 18:23 A&P Assessment and plan (1) Symptomatic bradycardia: (2) Chronic kidney failure: (3) Vomiting: (4) Abdominal pain: (5) COPD (chronic obstructive pulmonary disease): Qualifiers: COPD type: unspecified COPD Qualified Code(s): J44.9 - Chronic obstructive pulmonary disease, unspecified (6) Diabetes mellitus: (7) HTN (hypertension): (8) Coronary artery disease: (9) Congestive heart failure (CHF): (10) Aortic stenosis: (11) History of mitral valve replacement with bioprosthetic valve: (12) Hyperkalemia: (13) Hyponatremia: Plan #Symptomatic sinus bradycardia secondary to digoxin toxicity with component of polypharmacy #Hyponatremia, hyperkalemia secondary to above #Acute kidney injury, unsure if underlying CKD, baseline normal to 1.1 #Hypomagnesemia #Chronic congestive heart failure with reduced ejection fraction 35 to 40% #Mitral valve replacement, bioprosthetic #Mild aortic valve stenosis #Diabetes mellitus, insulin-dependent #COPD ? Digoxin level 1.6. No evidence of heart block on EKGs done in ER ? Status post glucagon 5 mg, calcium gluconate x1 ? We will administer 60 mg DigiFab after discussion with pharmacy regarding dosage. May repeat dose if response inadequate. - Check dig level again in AM. ? Check serum potassium hourly for 4 hours, replete as needed. - Check serial EKG's - Sliding scale insulin low intensity sliding scale as pt vomiting. Will hold home lantus at this time. - Hold diltiazem. Stop digoxin indefinitely - Hold glipizide, lisinopril, lasix - Continue omeprazole - Continue supportive care - Duoneb q6H PRN - Discussed with poison control as well who discussed with their lpn private duty as well. - Consider cardiology consultation. Full Code Attestations Medical Necessity Statement*: Will cross > 2 midnight stay for management of bradycardia due to digoxin toxicity. Critical Care Time: The high probability of a clinically significant, sudden or life threatening deterioration of the patient's [cardiovascular, ga strointestinal] system(s) required my full and direct attention, intervention and personal management. The critical care time is as shown. This time is in addition to time spent performing any reported procedures but includes the following: [x] Data and vital sign review and interpretation [x] Patient assessment, examination and intervention [x] Documentation [x] Medication orders and management, discussion with poison control, discussion with pharmacy, discussion with RN, ER doc. Critical Care Time (min): 80 Coding Level of Care Code Acute Spun Paste Machine Operator for g Fwd Diagnoses Symptomatic bradycardia R00.1 Chronic kidney failure N18.9 Vomiting R11.10 Abdominal pain R10.9 COPD (chronic obstructive pulmonary disease) J44.9 COPD type: unspecified COPD Diabetes mellitus E11.9 HTN (hypertension) I10 Coronary artery disease I25.10 Congestive heart failure (CHF) I50.9 Aortic stenosis I35.0 History of mitral valve replacement with bioprosthetic valve Z95.3 Hyperkalemia E87.5 Hyponatremia E87.1
[2022-06-20 23:11] LABS: Digoxin 1.6 ng/mL (0.6-1.2)
[2022-06-20 23:18] VITALS: BP 127/51; PULSE 47; RESP 16; O2SAT 96
[2022-06-20 23:56] VITALS: O2SAT 86
[2022-06-21] VITALS (61 sets, daily range): BP systolic 102–155; BP diastolic 39–90; PULSE 33–85; RESP 14–30; TEMP 36.4–36.6; O2SAT 82–96; BMI 23.4
[2022-06-21 00:38] LABS: Glucose Point of Care 237 mg/dL (70-110)
[2022-06-21 01:46] LABS: Magnesium 1.5 mg/dL (1.7-2.3)
[2022-06-21 01:48] LABS: Troponin 5 6HR 44.52 ng/L (0-15)
--- NOTE | 2022-06-21 01:49 | ECG_ITS ---
[facility] Test Date: 2022-06-21 Pat Name: Anuj Irving Department: Room: [facility]07 Gender: Male Digitizer: : 1945 Requested By: Isatu Gray Order Number: [id number] Dolly MD: Ariana Schwartz M.D. Measurements Intervals [place] Rate: 44 P: -52 IL: 146 QRS: 54 QRSD: 117 T: 36 QT: 406 QTc: 348 Interpretive Statements SINUS BRADYCARDIA LOW QRS VOLTAGE IN EXTREMITY LEADS [QRS DEFLECTION < 0.5 mV IN LIMB LEADS] ANTERIOR MYOCARDIAL INFARCTION , OF INDETERMINATE AGE [40+ ms Q WAVE AND/OR ST/T ABNORMALITY IN V3/V4] Compared to ECG 06/20/2022 21:56:22 Low QRS voltage now present Myocardial infarct finding still present Electronically Signed On 06-22-2022 15:38:44 SCARF AND ANNEAL OPERATOR by Ariana Schwartz M.D. [email or web address] [email or web address]/store/[id number]
[2022-06-21 01:52] LABS: Troponin 5 6HR Delta -5.48 ng/L (0-12)
--- NOTE | 2022-06-21 02:00 | PC.NURSE ---
Physician Communication Upon patient transfer to ICU, orders received for metz catheter and an NPO diet. Additionally, patient's blood sugar 237; insulin sliding scale set to start at 0800. Patient requesting something to eat and drink, able to use urinal as needed. Dr. Gray contacted; order received for a clear liquid diet (advance as tolerated) and to give a first dose of insulin now, metz catheter order cancelled as well. Pharmacy called and insulin sliding scale order modified to accommodate first dose now.
[2022-06-21] MEDS: insulin lispro 100 unit/1 mL SUBCUT ×3 (02:22→21:31)
[2022-06-21 02:30] LABS: Glucose Point of Care 184 mg/dL (70-110)
--- NOTE | 2022-06-21 03:15 | ECG_ITS ---
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 Measurements Intervals [place] Rate: 39 P: 0 [place]: 0 QRS: 59 QRSD: 82 T: 102 QT: 401 QTc: 323 Interpretive Statements SUPRAVENTRICULAR BRADYCARDIA LOW QRS VOLTAGE [QRS DEFLECTION < 0.5/1.0 mV IN LIMB/CHEST LEADS] ANTEROSEPTAL MYOCARDIAL INFARCTION , OF INDETERMINATE AGE [40+ ms Q WAVE IN V1-V4] MODERATE T-WAVE ABNORMALITY, CONSIDER LATERAL ISCHEMIA [-0.1+ mV T-WAVE IN I/aVL/V5/V6] MODERATE T-WAVE ABNORMALITY, CONSIDER INFERIOR ISCHEMIA [-0.1+ mV T-WAVE IN II/aVF] CRITICAL TEST RESULT Compared to ECG 06/21/2022 01:49:43 T-wave abnormality now present Possible ischemia now present Sinus bradycardia no longer present Myocardial infarct finding still present Electronically Signed On 06-22-2022 18:04:14 PSYCHOLOGY INTERN by Ariana Schwartz M.D. [id number]
[2022-06-21] MEDS: atropine 0.1 mg/mL Syr 10 mL 0.5 MG IVP (03:38)
[2022-06-21 03:58] LABS: Alanine Aminotransferase 11 U/L (0-41); Albumin Level 3.8 g/dL (3.5-5.2); Alkaline Phosphatase 85 U/L (40-130); Anion Gap 14.5 (5-19); Aspartate Amino Transferase 22 U/L (0-40); Blood Urea Nitrogen 27 mg/dL (8-23); Calcium 8.3 mg/dL (8.5-10.5); Carbon Dioxide 21 mmol/L (22-29); Chloride 95 mmol/L (98-107); Globulin 1.9 g/dL (1.3-4.6); Glucose 137 mg/dL (65-115); Magnesium 1.5 mg/dL (1.7-2.3); Osmolality Calculated 269 mOsm/kg (285-295); Potassium 4.5 mmol/L (3.5-5.1); Sodium 126 mmol/L (136-145); Total Bilirubin 0.4 mg/dL (0.15-1.2); Total Protein 5.7 g/dL (6.6-8.7)
--- NOTE | 2022-06-21 04:08 | PC.NURSE ---
Bradycardia Following digifab administration, patient's HR was maintaining in the mid-high 40s, order received from Dr. Gray to notify her if HR decreases further. At 0330, patient's HR dropping into the low 30s, as low as 33. Dr. Gray notified and order received for 0.5 mg atropine IVP once now. Medication administered per SEP.
--- NOTE | 2022-06-21 05:07 | ECG_ITS ---
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 Measurements Intervals [place] Rate: 54 P: 0 VA: 0 QRS: 57 QRSD: 124 T: 69 QT: 432 QTc: 411 Interpretive Statements ATRIAL FIBRILLATION WITH SLOW VENTRICULAR RESPONSE MODERATE INTRAVENTRICULAR CONDUCTION DELAY [105+ ms QRS DURATION, 80+ ms Q/S IN V1/V2, NO Q AND 60+ ms R IN I/aVL/V5/V6] ST DEVIATION AND MODERATE T-WAVE ABNORMALITY, CONSIDER LATERAL ISCHEMIA [-0.1+ mV T-WAVE IN I/aVL/V5/V6] Compared to ECG 06/21/2022 03:17:10 Intraventricular conduction delay now present Myocardial infarct finding no longer present T-wave abnormality still present Possible ischemia still present Electronically Signed On 06-22-2022 13:53:28 INVERFORM MACHINE OPERATOR by Ariana Schwartz M.D. [id number]
--- NOTE | 2022-06-21 05:16 | PC.NURSE ---
EKG Since atropine administration, patient's telemetry showed change in rhythm. Dr. Gray notified, order for EKG obtained. See report.
[2022-06-21 05:48] LABS: Basophils % 0.1 %; Eosinophils % 0.5 %; Hematocrit 29.3 % (42.0-52.0); Hemoglobin 9.2 g/dL (11.7-16.6); Lymphocytes # 1.2 10^3/uL (0.8-4.8); Lymphocytes % 14.2 %; Mean Corpuscular HGB Conc 31.4 g/dL (30.0-36.0); Mean Corpuscular Hemoglobin 30.1 pg (28.0-34.0); Mean Corpuscular Volume 95.8 fl (80-94); Mean Platelet Volume 11.6 fL (7.4-10.4); Monocytes % 11.4 %; Neutrophils # 5.96 10^3/uL (1.8-7.7); Neutrophils % 69.6 %; Nucleated Red Blood Cells % 0 %; Platelet Count 111 10^3/cmm (130-400); Red Blood Count 3.06 10^6/uL (4.1-5.3); Red Cell Distribution Width 15.9 % (12.1-15.1); White Blood Count 8.6 10^3/uL (4.0-10.0)
--- NOTE | 2022-06-21 06:15 | ECG_ITS ---
[facility] Test Date: 2022-06-21 Pat Name: Anuj Irving Department: Room: [facility]07 Gender: Male Legal Document Specialist: : 1945 Requested By: Isatu Gray Order Number: [id number] Dolly MD: Ariana Schwartz M.D. Measurements Intervals [place] Rate: 40 P: 0 MS: 0 QRS: 62 QRSD: 120 T: 88 QT: 388 QTc: 319 Interpretive Statements Possible junctional rhythm ANTEROSEPTAL MYOCARDIAL INFARCTION , PROBABLY OLD [40+ ms Q WAVE IN V1-V4] CRITICAL TEST RESULT Diffuse nonspecific ST-T changes Compared to ECG 06/21/2022 05:07:43 Myocardial infarct finding now present Atrial fibrillation no longer present Intraventricular conduction delay no longer present T-wave abnormality no longer present Possible ischemia no longer present Electronically Signed On 06-23-2022 0:04:26 DIRECTOR BUSINESS DEVELOPMENT by Ariana Schwartz M.D. [email or web address] medical [id number]
[2022-06-21 06:58] LABS: Potassium 4.6 mmol/L (3.5-5.1)
[2022-06-21 07:27] LABS: Glucose Point of Care 74 mg/dL (70-110)
[2022-06-21] MEDS: apixaban 5 mg Tablet PO ×2 (09:37→21:33)
--- NOTE | 2022-06-21 09:49 | USCV_ITS ---
Anuj Irving Age: 77 Gender: M : 1945 Exam Date: 06/21/2022 10:14 Ordering Phys: Ariana Schwartz MD ([email or web address]) Technologist: Jose Aden Exam Location: [facility] [place] Indication: BETH CARDIA BP: 134 / 75 HR: 49 Rhythm: Sinus Technical Quality: Adequate MEASUREMENTS (Male / Female) Normal Values 2D ECHO LV Diastolic Diameter PLAX 5.5 cm 4.2 - 5.9 / 3.9 - 5.3 cm LV Systolic Diameter PLAX 3.8 cm IVS Diastolic Thickness 1.1 cm 0.6 - 1.0 / 0.6 - 0.9 cm IVS Systolic Thickness 1.6 cm LVPW Diastolic Thickness 1.3 cm 0.6 - 1.0 / 0.6 - 0.9 cm LVPW Systolic Thickness 1.1 cm LVOT Diameter 2.0 cm LV Ejection Fraction 2D Teich 57.6 % LV Ejection Fraction MOD 2C 59.0 % LV Ejection Fraction 2C AL 58.8 % LA Diameter 3.9 cm Aorta at Sinotubular Diameter 3.1 cm M-MODE Aortic Annulus Diameter 3.2 cm LA Ao Ratio MM 1.2 MV E Point Septal Separation 1.4 cm FINDINGS Left Ventricle Severe hypokinesia of the mid and apical septum and inferior wall segments. Left ventricular ejection fraction around 45% Right Ventricle The right ventricle is normal in size and function. Right Atrium The right atrium is normal in size. Left Atrium The left atrium is normal in size. Mitral Valve Thickened mitral valve. Moderate mitral annular calcification. Aortic Valve Thickened aortic valve. Tricuspid Valve No gross abnormalities noted Pulmonic Valve Could not visualize well Pericardium No pericardial effusion. Aorta Normal aortic annulus size. IVC Inferior vena cava not visualized. CONCLUSIONS Severe hypokinesia of the mid and apical septum and inferior wall segments. Left ventricular ejection fraction around 45%. Thickened mitral valve. Moderate mitral annular calcification. Thickened aortic valve. There is no pericardial effusion. There are no intracardiac masses. Compared to the study from 03/03/2022, the LV ejection fraction appears to have improved. Dr Ariana Schwartz MD [facility] (Electronically Signed) Final Date: 21 June 2022 14:15 S
[2022-06-21 10:46] LABS: Digoxin 1.2 ng/mL (0.6-1.2)
[2022-06-21] MEDS: pantoprazole 40 mg SDV IVP (11:11)
[2022-06-21 11:23] LABS: Glucose Point of Care 187 mg/dL (70-110)
--- NOTE | 2022-06-21 15:28 | P.CONIM_ITS ---
Providers/Reason For Consult Consulting Physician/Specialty*: ALICJA Schwartz MD/cardiology Reason for Consult*: Patient with bradycardia/digitoxicity Requesting Physician: Dr. Gray/Dr. Schaefer Attending Physician: Jignesh Schaefer MD Primary Care Provider: Paola Moore MD History of Present Illness History of Present Illness Anuj Irving is a 77 year old male with a history of atherosclerotic heart diseas, high blood pressure, dyslipidemia, type 2 diabetes and atrial fibrillation, initially presented to the emergency room with complaints of some queasy sensation in the stomach. Later on he had an episode of nausea and vomi ting, while being in the emergency room. Patient was found to be bradycardic with a heart rate in the 40s. He also had some low blood pressures in the 90s. He was told to have low-dose of calcium olivia. He was given calcium gluconate in the emergency room. Digoxin level is 1.6. He returned he was also given Digibind. He was found to have hyponatremia and some hyperkalemia. Currently seems to be in atrial fibrillation with controlled ventricular response rate. Denies any chest pain or chest tightness. Has a history of coronary artery disease and had three-vessel coronary bypass surgery, approximately 10 years ago in [place]. He has not had any recent coronary interventions. He has a history of chronic atrial fibrillation and is on oral anticoagulation. Has not had bleeding complications. Overall functional status has been fairly stable. Denies any fever or chills. No cough. Review of Systems Narrative: CONSTITUTIONAL: No fever or chills. EYES: No blurring of vision or other visual disturbances lately. ENT: No hoarseness of voice, auditory disturbances or sore throat. CARDIOVASCULAR: As mentioned above. RESPIRATORY: No significant cough. GASTROINTESTINAL: Nausea and vomiting as mentioned above GENITOURINARY: No dysuria or hematuria. INTEGUMENTARY: No skin rashes or history of skin cancer. NEURO: No transient ischemic attacks or amaurosis. PSYCHIATRIC: No history of psychosis or major depression. HEMATOLOGIC: No bleeding disorders or significant anemia. ENDOCRINE: No history of polyuria or polydipsia. MUSCULOSKELETAL: No recent joint pain or swelling. ALLERGY/IMMUNOLOGY: As mentioned above. Medications/Allergies Home Medications Medication Instructions Recorded Confirmed Last Taken Type albuterol sulfate 90 mcg/actuation 2 puff inhalation Q4H PRN 07/12/21 06/21/22 Unknown History aerosol inhaler Shortness Of Breath apixaban 5 mg tablet (Eliquis) 5 mg PO BID 07/12/21 06/21/22 06/20/22 History atorvastatin 80 mg tablet 80 mg PO QPM 07/12/21 06/21/22 08/18/21 06:00 History cholecalciferol (vitamin D3) 25 25 mcg PO DAILY 07/12/21 06/21/22 06/20/22 History mcg (1,000 unit) capsule (Vitamin D3) docusate sodium 100 mg capsule 100 - 200 mg PO DAILY PRN 07/12/21 06/21/22 06/20/22 History Constipation insulin glargine 100 unit/mL (3 15 unit SUBCUT BID@0630,1830 07/12/21 06/21/22 06/20/22 History mL) subcutaneous pen (Lantus Solostar U-100 Insulin) lisinopril 10 mg tablet 5 mg PO DAILY 07/12/21 04/04/22 08/18/21 06:00 History metformin 1,000 mg tablet 1,000 mg PO BID 07/12/21 04/04/22 08/18/21 06:00 History multivitamin 1 tab PO DAILY 07/12/21 04/04/22 08/18/21 06:00 History omeprazole 40 mg capsule,delayed 40 mg PO BID 07/12/21 06/21/22 06/20/22 History release carboxymethylcellulose sodium 1 % 1 drp ophthalmic (eye) BID PRN Dry 11/26/21 04/04/22 Unknown History eye liquid gel drops (Refresh Eye(S) Liquigel) ferrous gluconate 324 mg (38 mg 324 mg PO BID 11/26/21 06/21/22 06/20/22 History iron) tablet fluticasone 100 mcg-salmeterol 50 1 inh inhalation BID 11/26/21 06/21/22 06/20/22 History mcg/dose blistr powdr for inhalation (Advair Diskus) furosemide 40 mg tablet (Lasix) 40 mg PO QAM 11/26/21 06/21/22 06/20/22 History glipizide 10 mg tablet 20 mg PO BID 11/26/21 06/21/22 06/20/22 History ipratropium 20 mcg-albuterol 100 1 puff inhalation Q6H PRN 11/26/21 06/21/22 Unknown History mcg/actuation mist for inhalation Shortness Of Breath prednisolone acetate 1 % eye 1 drp ophthalmic (eye) BID 11/26/21 04/04/22 Unknown History drops,suspension digoxin 125 mcg (0.125 mg) tablet 125 mcg PO DAILY 03/03/22 06/21/22 06/20/22 History diltiazem HCl 180 mg 180 mg PO DAILY 30 days #30 caps 04/06/22 06/21/22 06/20/22 Rx capsule,extended release 24 hr, controlled (DILT-XR) Allergies Allergy/AdvReac Type Severity Reaction Status Date / Time No Known Allergies Allergy Verified 11/26/21 12:51 Current Medications Generic Name Dose Route Start Last Admin Trade Name Freq PRN Reason Stop Dose Admin Apixaban 5 mg 06/21/22 09:00 06/21/22 09:37 Apixaban 5 Mg Tablet PO 5 mg BID@0900,2100 SHIELA Administration Insulin Human Lispro 0 unit 06/21/22 02:30 06/21/22 12:38 Insulin Lispro 100 Unit/1 Ml SUBCUT 4 unit WM&BEDTIME SHIELA Administration Protocol Pantoprazole Sodium 40 mg 06/21/22 09:00 06/21/22 11:11 Pantoprazole 40 Mg Sdv IVP 40 mg DAILY SHIELA Administration PFSH Acute PFSH: Medical History (Updated 06/21/22 @ 15:35 by Jignesh Schaefer MD) Acute exacerbation of chronic obstructive pulmonary disease (COPD) Acute kidney injury Atrial fibrillation COPD (chronic obstructive pulmonary disease) Coronary artery disease Diabetes mellitus HTN (hypertension) Ischemic cardiomyopathy Moderate aortic stenosis Rhabdomyolysis Suspected 2019-nCoV infection Surgical History (Updated 06/21/22 @ 03:12 by Isatu Gray MD) 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 Family History Mother Stroke Denies family history of Diabetes CAD (coronary artery disease) Clotting disorder Dementia Social History Smoking and tobacco status: light tobacco smoker Quit status (tobacco): has quit using tobacco Year quit tobacco: 2016 Former quit date comment: smoked 1 pack per day x 36 years Alcohol intake: current Household members: spouse Housing: House 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 Not in any acute distress. HEENT: No significant pallor, icterus or lymphadenopathy.Oral cavity: There are no mucous membrane lesions. NECK: Trachea appears to be central. No masses noted. No JVD or thyromegaly appreciated. RESPIRATORY: Chest is symmetrical. No intercostals muscle retraction or any accessory muscle activation. There is no chest wall tenderness. Breath sounds are heard bilaterally. No rales or rhonchi heard. No evidence of any conso lidation. BREASTS: Deferred. HEART: The first heart sound is variable. Second heart rate is normal. No S3. Short systolic murmur in the mitral area. No diastolic murmurs. ABDOMEN: No vessel pulsations or distention. No tenderness. No organomegaly appreciated. Bowel sounds are normally heard. : Deferred. RECTAL: Deferred. LYMPHATIC: No lymphadenopathy noted in the neck. EXTREMITIES: No edema or cyanosis. No clubbing. Peripheral pulses are palpable but weak bilaterally. MUSCULOSKELETAL: No acute joint deformities or swelling SKIN: There are no significant rashes or ecchymosis NEUROPSYCHIATRIC: The patient is alert and oriented x3. Appears to be in a good mood. No tremors or rigidity noted. Data 06/21/22 04:23 06/21/22 06:11 Other Labs: Laboratory Last Values WBC 8.6 10^3/uL (4.0-10.0) 06/21/22 04:23 RBC 3.06 10^6/uL (4.1-5.3) L 06/21/22 04:23 Hgb 9.2 g/dL (11.7-16.6) L 06/21/22 04:23 Hct 29.3 % (42.0-52.0) L 06/21/22 04:23 MCV 95.8 fl (80-94) H 06/21/22 04:23 MCH 30.1 pg (28.0-34.0) 06/21/22 04:23 MCHC 31.4 g/dL (30.0-36.0) 06/21/22 04:23 RDW 15.9 % (12.1-15.1) H 06/21/22 04:23 Plt Count 111 10^3/cmm (130-400) L 06/21/22 04:23 MPV 11.6 fL (7.4-10.4) H 06/21/22 04:23 Neut % (Auto) 69.6 % 06/21/22 04:23 Lymph % (Auto) 14.2 % 06/21/22 04:23 [place] % (Auto) 11.4 % 06/21/22 04:23 Eos % (Auto) 0.5 % 06/21/22 04:23 Baso % (Auto) 0.1 % 06/21/22 04:23 Neut # (Auto) 5.96 10^3/uL (1.8-7.7) 06/21/22 04:23 Lymph # (Auto) 1.2 10^3/uL (0.8-4.8) 06/21/22 04:23 [place] # (Auto) 1.0 10^3/uL (0.2-0.9) H 06/21/22 04:23 Eos # (Auto) 0.0 10^3/uL (0.0-0.8) 06/21/22 04:23 Baso # (Auto) 0.0 10^3/uL (0.0-0.1) 06/21/22 04:23 Nucleated RBC % (auto) 0 % 06/21/22 04:23 Nucleated RBCs # 0.0 /100WBC 06/21/22 04:23 Sodium 126 mmol/L (136-145) L 06/21/22 03:27 Sodium Cancelled 06/21/22 03:27 Potassium 4.6 mmol/L (3.5-5.1) 06/21/22 06:11 Chloride 95 mmol/L (98-107) L 06/21/22 03:27 Chloride Cancelled 06/21/22 03:27 Carbon Dioxide 21 mmol/L (22-29) L 06/21/22 03:27 Carbon Dioxide Cancelled 06/21/22 03:27 Anion Gap 14.5 (5-19) 06/21/22 03:27 Anion Gap Cancelled 06/21/22 03:27 BUN 27 mg/dL (8-23) H 06/21/22 03:27 BUN Cancelled 06/21/22 03:27 Creatinine 1.5 mg/dL (0.7-1.2) H 06/21/22 03:27 Creatinine Cancelled 06/21/22 03:27 GFR Calculation Cancelled 06/21/22 03:27 GFR Calculation Not Reportable 06/21/22 03:27 Glucose 137 mg/dL (65-115) H 06/21/22 03:27 Glucose Cancelled 06/21/22 03:27 POC Glucose 187 mg/dL (70-110) H 06/21/22 11:15 Calculated Osmolality 269 mOsm/kg (285-295) L 06/21/22 03:27 Calculated Osmolality Cancelled 06/21/22 03:27 Calcium 8.3 mg/dL (8.5-10.5) L 06/21/22 03:27 Calcium Cancelled 06/21/22 03:27 Magnesium 1.5 mg/dL (1.7-2.3) L 06/21/22 03:27 Total Bilirubin 0.4 mg/dL (0.15-1.2) 06/21/22 03:27 AST 22 U/L (0-40) 06/21/22 03:27 ALT 11 U/L (0-41) 06/21/22 03:27 Alkaline Phosphatase 85 U/L (40-130) 06/21/22 03:27 Troponin T Baseline 50 ng/L (0-15) H 06/20/22 18:23 Troponin T 120 Minute 44.39 ng/L (0-15) H 06/20/22 20:08 Delta Troponin T -5.61 ABS# (0-10) L 06/20/22 20:08 Troponin T Hi Sens 6Hr 44.52 ng/L (0-15) H 06/21/22 00:50 Troponin T Hi Sens 6Hr Delta -5.48 ng/L (0-12) L 06/21/22 00:50 C-Reactive Protein 3.0 mg/L (0.0-4.9) 06/20/22 20:08 NT-Pro-B Natriuret Pep 1008 pg/mL (0-450) H 06/20/22 20:08 Total Protein 5.7 g/dL (6.6-8.7) L 06/21/22 03:27 Albumin 3.8 g/dL (3.5-5.2) 06/21/22 03:27 Globulin 1.9 g/dL (1.3-4.6) 06/21/22 03:27 Lipase 75 U/L (13-60) H 06/20/22 18:23 Urine Color Yellow (Yellow) 06/20/22 20:21 Urine Appearance Clear (CLEAR) 06/20/22 20:21 Urine pH 5 (5-7) 06/20/22 20:21 Ur Specific [place] 1.015 (1.005-1.030) 06/20/22 20:21 Urine Protein Neg (Negative) 06/20/22 20:21 Urine Glucose (UA) Norm (Normal) 06/20/22 20:21 Urine Ketones Negative (Negative) 06/20/22 20:21 Urine Blood Neg (Negative) 06/20/22 20:21 Urine Nitrate Negative (Negative) 06/20/22 20:21 Urine Bilirubin Neg (Negative) 06/20/22 20:21 Urine Urobilinogen Neg mg/dL (Negative) 06/20/22 20:21 Ur Leukocyte Esterase 1+ (Negative) H 06/20/22 20:21 Urine RBC None /hpf (0-2) 06/20/22 20:21 Urine WBC 0-4 /hpf (0-5) H 06/20/22 20:21 Ur Squamous Epith Cells None /hpf (0-5) 06/20/22 20:21 Amorphous Sediment Not Reportable 06/20/22 20:21 Urine Bacteria None /hpf (NONE) 06/20/22 20:21 Hyaline Casts 0-4 /lpf H 06/20/22 20:21 Digoxin 1.2 ng/mL (0.6-1.2) 06/21/22 06:11 Echo: My impression: Severe hypokinesia of the mid and apical septum and inferior ?wall segments.? ?Left ventricular ejection fraction around 45%. ?Thickened mitral valve. Moderate mitral annular calcification. ?Thickened aortic valve. ?There is no pericardial effusion. ?There are no intracardiac masses. ?Compared to the study from 03/03/2022, the LV ejection fraction ?appears to have improved. EKG 1: My Interpretation: Possible junctional rhythm rate of [address]-T changes. Poor R wave progression. Possible old anteroseptal IN EKG computer-generated impression: Chest/Abdomen X-ray 06/20/22 19:55 IMPRESSION: No acute findings. Abdomen/Pelvis CT 06/20/22 20:07 IMPRESSION: 1. No acute findings. 2. Punctate cholelithiasis. 3. Infrarenal abdominal aortic aneurysm measuring up to 3.4 cm. COMMENTS: Consistent with the [employer]'s Incidental Findings Committee white paper (J Am Kyara Radiol 2018): Any incidental renal lesion less than 1 cm or classified as too small to characterize, or any incidental cystic renal lesion characterized as simple-appearing, is likely benign. No follow-up imaging is recommended for these lesions per consensus recommendations based on imaging criteria. A&P Assessment and plan (1) Atrial fibrillation: Patient apparently has a history of bradycardia off and on. Currently seems to be in controlled ventricular response rate. Hemodynamically seems to be stable. It might be appropriate for him to stay off the digoxin. May start him on a lower dose of diltiazem-120 mg p.o. daily. Based on the clinical progress, further recommendations will be made. (2) Hypomagnesemia: Magnesium supplement the magnesium SR would be appropriate. (3) Digoxin overdose: The patient may stay off the digoxin at this point. (4) Hyponatremia: This is being corrected. Repeat BMP in the morning (5) Hyperkalemia: There is also being corrected. (6) History of mitral valve replacement with bioprosthetic valve: The mitral valve function appears to be appropriate. (7) Aortic stenosis: Patient was found to have a low gradient severe aortic valve stenosis. (8) Congestive heart failure (CHF): The heart failure seems to be compensated clinically. May continue on the current medications for the time being . IV Lasix on a as needed basis (9) Symptomatic bradycardia: Patient is currently seems to be back to the atrial fibrillation with a controlled ventricular response rate. May stay off the digoxin. Consider starting on a lower dose of Cardizem. Plan Based on the clinical progress, further recommendations will be made. Thank for the opportunity to this patient make these recommendations Coding Level of Care Code Acute Electrical Engineer for Deyanira Pinon Medical Decision Making Moderate Complexity Diagnoses Atrial fibrillation I48.91 Hypomagnesemia E83.42 Digoxin overdose T46.0X1A Hyponatremia E87.1 Hyperkalemia E87.5 History of mitral valve replacement with bioprosthetic valve Z95.3 Aortic stenosis I35.0 Congestive heart failure (CHF) I50.9 Symptomatic bradycardia R00.1
--- NOTE | 2022-06-21 15:28 | PM.PN ---
Subjective Subjective: Patient reports nausea, emesis, and abdominal pain has resolved. Endorses a history of bradycardia. Expresses strong desire to discharge as soon as possible. Denies fevers, chills chest pain or shortness of breath. Chronically on oxygen at baseline Medications: Reviewed: Yes Vitals/I&O/Wt Last Vital Signs Temp 97.9 F 06/21/22 14:00 Pulse 47 L 06/21/22 15:00 Resp 21 H 06/21/22 15:00 BP 123/55 06/21/22 15:00 Pulse Ox 94 06/21/22 15:00 O2 Del Method 06/21/22 15:00 O2 Flow Rate 2 06/21/22 15:00 06/21/22 06/21/22 06/21/22 06:59 14:59 22:59 Intake Total 290 / 290 772 / 772 Output Total 150 / 150 Balance 140 / 140 772 / 772 Weight last 48 hrs Weight 67.993 kg Weight 67.993 kg Weight 75.75 kg Physical Exam Narrative: General: Patient is awake and alert. Frail appearing. Head: Normocephalic. Atraumatic. Neck: No JVD. Cardiovascular: No gallops. No murmurs. No peripheral edema. Bradycardic. Lungs: Breath sounds are diminished in bilateral bases, no use of accessory muscles, no crackles or wheezes. Skin: No jaundice. No rashes. Abdomen: Normal bowel sounds, abdomen soft and nontender. Genito Urinary: Genital exam not performed since complaints not related. Rectal: Rectal exam not performed since no symptoms indicated blood loss. Extremities: No cyanosis or clubbing. Musculoskeletal: Muscle mass appropriate for age. Neurological: Moves all 4 extremities. No myoclonus. Data 06/21/22 04:23 06/21/22 06:11 A&P Assessment and plan (1) Digoxin overdose: Status post digifab Repeat digoxin level 1.2 Discontinue digoxin Telemetry monitoring (2) Symptomatic bradycardia: Bradycardia is improving Remains bradycardic but asymptomatic throughout day shift Telemetry monitoring Cardiology consulted, appreciate recommendations (3) Atrial fibrillation: Continue apixaban Restart home cardizem per cardiology Telemetry monitoring Correct electrolytes (4) Hyponatremia: Acute on chronic Na 126 Trend (5) Hypomagnesemia: Replace magnesium (6) Hyperkalemia: Resolved Continue to monitor electrolytes (7) History of mitral valve replacement with bioprosthetic valve: Echocardiogram ordered, follow up (8) Congestive heart failure (CHF): Restart home oral Lasix Strict I&Os Daily weights (9) Chronic kidney failure: Renal function somewhat labile (10) Vomiting: Nausea/emesis has resolved Advanced diet Antiemetics if needed (11) Hypoxia: Chronic hypoxic respiratory failure Oxygen demands at baseline (12) COPD (chronic obstructive pulmonary disease): Not in acute exacerbation Continue to monitor DuoNebs PRN Qualifiers: COPD type: unspecified COPD Qualified Code(s): J44.9 - Chronic obstructive pulmonary disease, unspecified (13) Diabetes mellitus: Hold glipizide Hold metformin Start home Lantus at reduced dose Sliding scale insulin correction (14) Coronary artery disease: Continue high intensity statin Attestations Medical Necessity Statement*: Patient requires ongoing hospitalization for bradycardia and digoxin overdose management including telemetry monitoring, serial labs, electrolyte replacement, and cardiology evaluation with expected hospitalization to cross two midnights. Coding Level of Care Code Acute Assistant Manager Pt for Deyanira Pinon Diagnoses Digoxin overdose T46.0X1A Symptomatic bradycardia R00.1 Atrial fibrillation I48.91 Hyponatremia E87.1 Hypomagnesemia E83.42 Hyperkalemia E87.5 History of mitral valve replacement with bioprosthetic valve Z95.3 Congestive heart failure (CHF) I50.9 Chronic kidney failure N18.9 Vomiting R11.10 Hypoxia R09.02 COPD (chronic obstructive pulmonary disease) J44.9 COPD type: unspecified COPD Diabetes mellitus E11.9 Coronary artery disease I25.10
[2022-06-21 17:50] LABS: Glucose Point of Care 121 mg/dL (70-110)
[2022-06-21] MEDS: dilTIAZem ER (24HR) 120 mg Capsule PO (18:03)
[2022-06-21] MEDS: atorvastatin 40 mg Tablet 80 MG PO (18:03)
[2022-06-21] MEDS: insulin glargine 100 units/1 mL 10 UNIT SUBCUT (18:47)
[2022-06-21 20:21] LABS: Glucose Point of Care 176 mg/dL (70-110)
[2022-06-22] VITALS (40 sets, daily range): BP systolic 121–150; BP diastolic 38–69; PULSE 43–76; RESP 19–34; O2SAT 89–96
[2022-06-22 03:52] LABS: Basophils % 0.1 %; Eosinophils % 0.1 %; Hematocrit 28.8 % (42.0-52.0); Hemoglobin 9.1 g/dL (11.7-16.6); Lymphocytes # 0.4 10^3/uL (0.8-4.8); Lymphocytes % 2.9 %; Mean Corpuscular HGB Conc 31.6 g/dL (30.0-36.0); Mean Corpuscular Hemoglobin 29.9 pg (28.0-34.0); Mean Corpuscular Volume 94.7 fl (80-94); Mean Platelet Volume 12.9 fL (7.4-10.4); Monocytes % 15.4 %; Neutrophils % 79.9 %; Nucleated Red Blood Cells % 0 %; Platelet Count 122 10^3/cmm (130-400); Red Blood Count 3.04 10^6/uL (4.1-5.3); Red Cell Distribution Width 15.9 % (12.1-15.1); White Blood Count 13.1 10^3/uL (4.0-10.0)
[2022-06-22 04:23] LABS: Digoxin 1.1 ng/mL (0.6-1.2)
[2022-06-22 04:28] LABS: Albumin Level 4.1 g/dL (3.5-5.2); Anion Gap 16.3 (5-19); Blood Urea Nitrogen 23 mg/dL (8-23); Calcium 9.1 mg/dL (8.5-10.5); Carbon Dioxide 21 mmol/L (22-29); Chloride 102 mmol/L (98-107); Glucose 184 mg/dL (65-115); Magnesium 1.8 mg/dL (1.7-2.3); Phosphorus 2.4 mg/dL (2.5-4.5); Potassium 5.3 mmol/L (3.5-5.1); Sodium 134 mmol/L (136-145)
[2022-06-22 05:53] LABS: 25 Hydroxy Vitamin D 43 ng/mL (30-100)
[2022-06-22] MEDS: FUROsemide 40 mg Tablet PO (06:38)
[2022-06-22] MEDS: insulin glargine 100 units/1 mL 10 UNIT SUBCUT (06:40)
--- NOTE | 2022-06-22 06:54 | PC.NURSE ---
Shift Note Frequent safety and comfort rounds continue. Orders and/or nursing care completed as indicated. Patient monitored for response to intervention and treatment(s). Education provided includes treatment plan. Patient verbalized understanding of teaching. Patient had an uneventful shift, remains alert & oriented x4 on 2LNC. No wounds or skin issues noted at this time. No reports of pain overnight. Will continue to monitor.
[2022-06-22 08:09] LABS: Glucose Point of Care 180 mg/dL (70-110)
[2022-06-22] MEDS: pantoprazole 40 mg SDV IVP (08:23)
[2022-06-22] MEDS: apixaban 5 mg Tablet PO (08:23)
[2022-06-22] MEDS: dilTIAZem ER (24HR) 120 mg Capsule PO (08:23)
[2022-06-22] MEDS: insulin lispro 100 unit/1 mL SUBCUT ×2 (08:24→12:46)
--- NOTE | 2022-06-22 10:02 | PC.CHAP ---
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 health program analyst visit [] Patient/Family/Request visit [] Outpatient visit [] Follow-up visit [] Physician referral [] Code/Alert [x] Routine visit [] Staff referral [] Actively dying [x] Patient sleeping [] Family support [] [] Out of room [] Palliative care [] [] Receiving care in room [] Pre-surgical visit [] Trauma [] Long length of stay [x] ICU visit [] Other: Relational/Emotional Strength [] Patient feels connected with others/family/visitors/staff [] Distress [] Loneliness/isolation [] Abandonment Spirituality of Patient [] Person of Laxmi [] Attends Sikh of their Laxmi [] Believes in Prayer [] Reads Bible or Jehovah'S Witness materials [] There are Spiritual issues to be addressed Supervisor Offset Plate Preparation Interventions [x] Prayer [] Active listening [] Non-anxious presence [] Spiritual/emotional support [] Crisis/trauma care [] Spiritual counseling [] Bereavement support [] Provided bereavement packet [] Provided Bible/devotional materials [] Provided toy/stuffed animal, coloring book to patient or family member [] Provided Communion [] Anointing/[place] [] Salvation [x] Completed spiritual assessment [] Other: Impact on Illness or Injury [] Angry [] Fearful [] Anxious [] Often cries [] Exhaustion [] Unable to work [] Unable to attend zoroastrian [] Unable to walk/stand [] Unable to read [] Unable to drive [] Unable to eat/drink [] Unable to sleep [] Unable to be with family [] Patient intubated [] Other: Summary Time spent with patient
--- NOTE | 2022-06-22 11:06 | PM.DCS ---
Discharge Providers Date of Admission: 06/20/22 23:08 Date of Discharge: June 22, 2022 Attending Provider at Admission: Isatu Gray MD Attending Provider at Discharge: Yung Morrison MD Primary Care Provider: Paola Moore MD Diagnoses at Discharge Discharge Diagnosis (1) Atrial fibrillation: Status: Acute (2) Hypomagnesemia: Status: Acute (3) Digoxin overdose: Status: Acute (4) Hyponatremia: Status: Acute (5) Hyperkalemia: Status: Acute (6) History of mitral valve replacement with bioprosthetic valve: Status: Acute (7) Aortic stenosis: Status: Acute (8) Congestive heart failure (CHF): Status: Acute (9) Symptomatic bradycardia: Status: Acute Reason for Visit Reason for Visit: weakness Hospital Course Hospital Course HPI : Isatu Gray MD Anuj Irving is a 77 year old male past medical history of COPD, atrial fibrillation, coronary artery disease, diabetes mellitus, hypertension, ischemic cardiomyopathy, moderate aortic stenosis, rhabdomyolysis presented to the hospital today with complaint of epigastric abdominal pain.? He also had vomiting just prior to arrival to the ER and vomited again once he came here.? He was found to be bradycardic into the 30s.? He states he does have low heart rate at home as well from time to time.? He did take all his medications today as directed.? He has had several episodes of vomiting today.? Reports feeling tired overall.? Denies any vision changes, chest pain, headache, palpitations.? Generally feels weak.? He says earlier he was also short of breath but now is feeling better.? He has been feeling lightheaded from time to time as well all day today.? He is chronically on oxygen 2 L nasal cannula at home [id number].? He says he does smoke cigars once in a while.? Lives at home with his .? Denies any lower extremity edema.? No blood in the vomitus noted. ED course: On arrival to ER blood pressure 127/48, respiratory 16, pulse high 30s to low 40s.? Patient states this is chronic for him.? ER suspected calcium channel olivia overdose as patient's blood pressure continuing to get lower over time as well.? Patient was given 5 mg of glucagon and calcium gluconate x1.? Heart rate occasionally would go into 50s but dropped out again.? He also was given IV fluids.? Heart rate and blood pressure did not respond to IV fluids either.? CT abdomen pelvis was done which did not show any acute pathology.? Patient's labs remarkable for WBC 10.6, hemoglobin 9.7, sodium 125, potassium 5.2, chloride 91, CO2 21, creatinine 1.6, magnesium 1.5, BNP 1000, lipase 75, UA positive for 1+ leukocyte esterase, WBC 0-4, hyaline cast 0-4. I have requested a digoxin level at this time.? It has returned at 1.6. Hospital course: Patient was admitted for the management of dig toxicity, during the hospital stay he received DigiFab, electrolyte abnormality were corrected , patient heart rate continue to be in low 50s, digoxin has been discontinued on discharge, dose of Cardizem has been decreased to 120 from 180. Patient also possibly NADER on CKD, for now serum creatinine was improving, his metformin has been kept on hold, given borderline GFR, he has been asked to repeat BMP in a week, and follow-up with his primary care physician, at that point in time decision regarding initiation of metformin can be taken, or possibly can be switched to some other oral antidiabetic. Patient has been asked to follow-up with his PCP as well as cardiology as outpatient. Patient has overall responded well to above medical management and is being discharged in stable condition to home. Physical Exam Const: COMMON NORMALS: patient oriented x3 Resp: COMMON NORMALS: normal respiratory effort, No retractions, No use of accessory muscles and clear to auscultation bilaterally EFFORT & INSPECTION: Yes symmetric chest movement AUSCULTATION: clear to auscultation bilaterally Cardio: COMMON NORMALS: regular rate, regular rhythm, S1 normal heart sound present, S2 normal heart sound present, No gallops present (Cardio), No murmurs present (Cardio), No rub (Cardio) and Peripheral pulses 2+ throughout RATE: regular rate RHYTHM: regular rhythm HEART SOUNDS: S1 normal heart sound present and S2 normal heart sound present PERIPHERAL PULSES: Peripheral pulses 2+ throughout GI: COMMON NORMALS: Normal to inspection, nondistended, normoactive bowel sounds present, Soft to palpation, non-tender, No hepatosplenomegaly present and no masses AUSCULTATION: Yes normoactive bowel sounds PALPATION: Yes Soft to palpation and Yes No hepatosplenomegaly present RECTAL EXAM: Yes deferred Extremity: COMMON NORMALS: no clubbing, cyanosis or edema and no pedal edema Neuro: COMMON NORMALS: patient oriented x3 Discharge Data Studies Completed and Pending Completed Studies During Hospitalization Category Date Time Status CT abdomen pelvis w con* [id number] Stat Cat Scan 06/20/22 20:07 Completed XR acute abdomen series [id number] Stat Exams 06/20/22 19:55 Completed CV. echo limited [id number] Routine Ultrasound 06/21/22 09:49 Completed Radiology Impressions Chest/Abdomen X-ray 06/20/22 19:55 IMPRESSION: No acute findings. Abdomen/Pelvis CT 06/20/22 20:07 IMPRESSION: 1. No acute findings. 2. Punctate cholelithiasis. 3. Infrarenal abdominal aortic aneurysm measuring up to 3.4 cm. COMMENTS: Consistent with the [employer]'s Incidental Findings Committee white paper (J Am Kyara Radiol 2018): Any incidental renal lesion less than 1 cm or classified as too small to characterize, or any incidental cystic renal lesion characterized as simple-appearing, is likely benign. No follow-up imaging is recommended for these lesions per consensus recommendations based on imaging criteria. Laboratory Results WBC 13.1 10^3/uL (4.0-10.0) H 06/22/22 02:59 RBC 3.04 10^6/uL (4.1-5.3) L 06/22/22 02:59 Hgb 9.1 g/dL (11.7-16.6) L 06/22/22 02:59 Hct 28.8 % (42.0-52.0) L 06/22/22 02:59 MCV 94.7 fl (80-94) H 06/22/22 02:59 MCH 29.9 pg (28.0-34.0) 06/22/22 02:59 MCHC 31.6 g/dL (30.0-36.0) 06/22/22 02:59 RDW 15.9 % (12.1-15.1) H 06/22/22 02:59 Plt Count 122 10^3/cmm (130-400) L 06/22/22 02:59 MPV 12.9 fL (7.4-10.4) H 06/22/22 02:59 Neut % (Auto) 79.9 % 06/22/22 02:59 Lymph % (Auto) 2.9 % 06/22/22 02:59 [place] % (Auto) 15.4 % 06/22/22 02:59 Eos % (Auto) 0.1 % 06/22/22 02:59 Baso % (Auto) 0.1 % 06/22/22 02:59 Neut # (Auto) 10.50 10^3/uL (1.8-7.7) H 06/22/22 02:59 Lymph # (Auto) 0.4 10^3/uL (0.8-4.8) L 06/22/22 02:59 [place] # (Auto) 2.0 10^3/uL (0.2-0.9) H 06/22/22 02:59 Eos # (Auto) 0.0 10^3/uL (0.0-0.8) 06/22/22 02:59 Baso # (Auto) 0.0 10^3/uL (0.0-0.1) 06/22/22 02:59 Nucleated RBC % (auto) 0 % 06/22/22 02:59 Nucleated RBCs # 0.0 /100WBC 06/22/22 02:59 Sodium 134 mmol/L (136-145) L 06/22/22 02:59 Potassium 5.3 mmol/L (3.5-5.1) H 06/22/22 02:59 Chloride 102 mmol/L (98-107) 06/22/22 02:59 Carbon Dioxide 21 mmol/L (22-29) L 06/22/22 02:59 Anion Gap 16.3 (5-19) 06/22/22 02:59 BUN 23 mg/dL (8-23) 06/22/22 02:59 Creatinine 1.4 mg/dL (0.7-1.2) H 06/22/22 02:59 GFR Calculation Not Reportable 06/22/22 02:59 Glucose 184 mg/dL (65-115) H 06/22/22 02:59 POC Glucose 180 mg/dL (70-110) H 06/22/22 08:05 Calculated Osmolality 269 mOsm/kg (285-295) L 06/21/22 03:27 Calculated Osmolality Cancelled 06/21/22 03:27 Calcium 9.1 mg/dL (8.5-10.5) 06/22/22 02:59 Phosphorus 2.4 mg/dL (2.5-4.5) L 06/22/22 02:59 Magnesium 1.8 mg/dL (1.7-2.3) 06/22/22 02:59 Total Bilirubin 0.4 mg/dL (0.15-1.2) 06/21/22 03:27 AST 22 U/L (0-40) 06/21/22 03:27 ALT 11 U/L (0-41) 06/21/22 03:27 Alkaline Phosphatase 85 U/L (40-130) 06/21/22 03:27 Troponin T Baseline 50 ng/L (0-15) H 06/20/22 18:23 Troponin T 120 Minute 44.39 ng/L (0-15) H 06/20/22 20:08 Delta Troponin T -5.61 ABS# (0-10) L 06/20/22 20:08 Troponin T Hi Sens 6Hr 44.52 ng/L (0-15) H 06/21/22 00:50 Troponin T Hi Sens 6Hr Delta -5.48 ng/L (0-12) L 06/21/22 00:50 C-Reactive Protein 3.0 mg/L (0.0-4.9) 06/20/22 20:08 NT-Pro-B Natriuret Pep 1008 pg/mL (0-450) H 06/20/22 20:08 Total Protein 5.7 g/dL (6.6-8.7) L 06/21/22 03:27 Albumin 4.1 g/dL (3.5-5.2) 06/22/22 02:59 Globulin 1.9 g/dL (1.3-4.6) 06/21/22 03:27 Lipase 75 U/L (13-60) H 06/20/22 18:23 25-OH Vitamin D Total 43 ng/mL (30-100) 06/22/22 02:59 Urine Color Yellow (Yellow) 06/20/22 20:21 Urine Appearance Clear (CLEAR) 06/20/22 20:21 Urine pH 5 (5-7) 06/20/22 20:21 Ur Specific [place] 1.015 (1.005-1.030) 06/20/22 20:21 Urine Protein Neg (Negative) 06/20/22 20:21 Urine Glucose (UA) Norm (Normal) 06/20/22 20:21 Urine Ketones Negative (Negative) 06/20/22 20:21 Urine Blood Neg (Negative) 06/20/22 20:21 Urine Nitrate Negative (Negative) 06/20/22 20:21 Urine Bilirubin Neg (Negative) 06/20/22 20:21 Urine Urobilinogen Neg mg/dL (Negative) 06/20/22 20:21 Ur Leukocyte Esterase 1+ (Negative) H 06/20/22 20:21 Urine RBC None /hpf (0-2) 06/20/22 20:21 Urine WBC 0-4 /hpf (0-5) H 06/20/22 20:21 Ur Squamous Epith Cells None /hpf (0-5) 06/20/22 20:21 Amorphous Sediment Not Reportable 06/20/22 20:21 Urine Bacteria None /hpf (NONE) 06/20/22 20:21 Hyaline Casts 0-4 /lpf H 06/20/22 20:21 Digoxin 1.1 ng/mL (0.6-1.2) 06/22/22 02:59 Vitals Last Vital Signs Temp 97.5 F L 06/21/22 21:30 Pulse 47 L 06/22/22 10:00 Resp 27 H 06/22/22 10:00 BP 140/53 06/22/22 09:00 Pulse Ox 96 06/22/22 10:00 O2 Del Method 06/21/22 21:30 O2 Flow Rate 2 06/21/22 21:30 Discharge Plan Discharge Patient Disposition: Home Condition: Stable Prescriptions: New diltiazem HCl 120 mg Capsule,Extended Release 24hr 120 mg PO DAILY 30 Days Qty: 30 2RF Continued multivitamin Tablet 1 tab PO DAILY omeprazole 40 mg Capsule,Delayed Release(Dr/Ec) 40 mg PO BID lisinopril 10 mg Tablet 5 mg PO DAILY docusate sodium 100 mg Capsule 100 - 200 mg PO DAILY PRN (Reason: Constipation) albuterol sulfate 90 mcg/actuation Hfa Aerosol Inhaler 2 puff INHALATION Q4H PRN (Reason: Shortness Of Breath) Eliquis 5 mg Tablet 5 mg PO BID atorvastatin 80 mg Tablet 80 mg PO QPM cholecalciferol (vitamin D3) [Vitamin D3] 25 mcg (1,000 unit) Capsule 25 mcg PO DAILY insulin glargine [Lantus Solostar U-100 Insulin] 100 unit/mL (3 mL) Insulin Pen 15 unit SUBCUT BID@0630,1830 furosemide [Lasix] 40 mg Tablet 40 mg PO QAM glipizide 10 mg Tablet 20 mg PO BID prednisolone acetate 1 % Drops,Suspension 1 drp ophthalmic (eye) BID Rx Instructions: left eye fluticasone propion-salmeterol [Advair Diskus] 100-50 mcg/dose Blister With Device 1 inh INHALATION BID carboxymethylcellulose sodium [Refresh Liquigel] 1 % Drops, Liquid Gel 1 drp OPHTHALMIC (EYE) BID PRN (Reason: Dry Eye(S)) ferrous gluconate 324 mg (38 mg iron) Tablet 324 mg PO BID ipratropium-albuterol 20-100 mcg/actuation Mist 1 puff INHALATION Q6H PRN (Reason: Shortness Of Breath) Held metformin 1,000 mg Tablet 1,000 mg PO BID Hold Instructions: Resume on 07/06/22. Discontinued digoxin 125 mcg (0.125 mg) Tablet 125 mcg PO DAILY diltiazem HCl [DILT-XR] 180 mg Capsule,Ext.Rel 24h Degradable 180 mg PO DAILY 30 Days Qty: 30 3RF Discharge Orders: Discharge Order (Routine); Ordered 06/22/22 Ordered By: Yung Morrison Other Ambulatory Orders: Basic Metabolic Panel (Routine) Timeframe: 1 Week Facility: [facility] - Location: Lab - Main Lab Ordered By: Yung Morrison Referrals: Paola Moore MD [Primary Care Provider] - 1 week Tito Hernandez M.D [Physician] - 1 month Karyn Chester FNP [Nurse Practitioner] - 1 week Patient Instructions: Opioid Safety Discharge Attestations Time Spent in Discharge Care*: less than 30 min Quality Metrics Clinical Quality Measures [ No reported AMI, CVA or VTE this stay] Coding Level of Care Code Acute Chg FW DC note Diagnoses Atrial fibrillation I48.91 Hypomagnesemia E83.42 Digoxin overdose T46.0X1A Hyponatremia E87.1 Hyperkalemia E87.5 History of mitral valve replacement with bioprosthetic valve Z95.3 Aortic stenosis I35.0 Congestive heart failure (CHF) I50.9 Symptomatic bradycardia R00.1
[2022-06-22 11:49] LABS: Glucose Point of Care 177 mg/dL (70-110)
--- NOTE | 2022-06-22 13:59 | PC.NURSE ---
Patient was given all discharge instructions and went over all medications and appointments. was informed of all information over the phone as well. Patient left the facility without oxygen and stated that he would make it home without it. Education provided.
== END 2022-06-22 13:20 | disposition home health service (06) | DRG 309 ==
LOC: ER 23:06 → ICU 23:09
PROVIDERS: Internal Medicine; Nurse Practitioner; Admitting Provider Internal Medicine; Emergency Provider Emergency Medicine; PCP Family Medicine; Visit Provider Internal Medicine
DX: R00.1 Bradycardia, unspecified (principal); E87.1 Hypo-osmolality and hyponatremia; I13.0 Hypertensive heart and chronic kidney disease with heart failure and stage 1 through stage 4 chronic kidney disease, or unspecified chronic kidney disease; I50.22 Chronic systolic (congestive) heart failure; N17.9 Acute kidney failure, unspecified; T46.0X5A Adverse effect of cardiac-stimulant glycosides and drugs of similar action, initial encounter; J44.9 Chronic obstructive pulmonary disease, unspecified; I48.20 Chronic atrial fibrillation, unspecified; I25.10 Atherosclerotic heart disease of native coronary artery without angina pectoris; Z95.1 Presence of aortocoronary bypass graft; N18.9 Chronic kidney disease, unspecified; E11.22 Type 2 diabetes mellitus with diabetic chronic kidney disease; I25.5 Ischemic cardiomyopathy; I35.0 Nonrheumatic aortic (valve) stenosis; Z99.81 Dependence on supplemental oxygen; Z95.2 Presence of prosthetic heart valve; F17.210 Nicotine dependence, cigarettes, uncomplicated; E87.5 Hyperkalemia; E83.42 Hypomagnesemia; E78.5 Hyperlipidemia, unspecified; Z79.84 Long term (current) use of oral hypoglycemic drugs; Z79.01 Long term (current) use of anticoagulants; Z79.51 Long term (current) use of inhaled steroids
CPT/HCPCS: 36415; 36416; 74022; 74177; 80053; 80069; 80162; 81001; 82306; 82962; 83690; 83735; 83880; 84132; 84484; 85025; 86140; 93005; 93308; 94664; 96361; 96372; 96374; 96375; 99285; C9113; J0461; J0610; J1162; J1610; J1815; J2405; J3475; J7030; J7040; Q9967

== ENCOUNTER → 2022-06-29 13:23 | Outpatient (BNVA) | payer OTHER, SELFPAY | PROVIDERS: PCP Family Medicine; Visit Provider Nurse Practitioner Family | DX: I48.91 Unspecified atrial fibrillation (principal); Z79.01 Long term (current) use of anticoagulants | CPT/HCPCS: 93005; 99213 ==

== ENCOUNTER 2022-08-16 14:45 | Emergency (ER) | payer OTHER, SELFPAY ==
[2022-08-16 15:11] VITALS: BP 148/56; PULSE 50; RESP 18; TEMP 36.6; O2SAT 93; BMI 23.0
--- NOTE | 2022-08-16 15:13 | W.ED.SOB ---
HPI - SOB/Dyspnea General: Chief Complaint: Shortness of Breath/Dyspnea Stated Complaint: SOB Time Seen by Provider: 08/16/22 15:13 History of Present Illness: HPI Narrative: Mr. Irving is a 77-year-old gentleman with history of atrial fibrillation on anticoagulation, insulin-dependent diabetic, hypertension presenting to the emergency department due to shortness of breath. He reports mostly headache over the past few days which is frontal in nature and pounding. He rarely gets headaches. He also noticed increased work of breathing. He has had mild cough. Denies other infectious symptoms. Intensity of symptoms is moderate to severe. Course has persisted. No other specific changes in health, exacerbating, or alleviating factors identified. Onset (ago): day(s) Timing: progressively worsening Severity: moderate Exacerbating factors: exertion Relieving factors: nothing Known history of: COPD and other Associated symptoms: Reports no associated symptoms Review of Systems General: Reports: 10 or more systems reviewed and unremarkable except in HPI and below PFSH ED PFSH: Medical History Abdominal pain Acute exacerbation of chronic obstructive pulmonary disease (COPD) Acute kidney injury Aortic stenosis Atrial fibrillation Chronic kidney failure Congestive heart failure (CHF) COPD (chronic obstructive pulmonary disease) Coronary artery disease Diabetes mellitus Digoxin overdose HTN (hypertension) Hyperkalemia Hypomagnesemia Hyponatremia Hypoxia Ischemic cardiomyopathy Moderate aortic stenosis Poisoning by calcium-channel blockers Rhabdomyolysis Suspected 2019-nCoV infection Symptomatic bradycardia Vomiting Surgical History History of mitral valve replacement with bioprosthetic valve 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 Family History Mother Stroke Denies family history of Diabetes CAD (coronary artery disease) Clotting disorder Dementia Social History Smoking and tobacco status: light tobacco smoker Quit status (tobacco): has quit using tobacco Year quit tobacco: 2017 Former quit date comment: smoked 1 pack per day x 36 years Alcohol intake: current Household members: spouse Housing: House 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 Const: COMMON NORMALS: patient oriented x3 and alert GENERAL APPEARANCE: cooperative and well developed HENMT: COMMON NORMALS: normocephalic and atraumatic HEAD & SCALP: normocephalic and atraumatic Eye: COMMON NORMALS: conjunctivae normal CONJUNCTIVA: Yes conjunctivae normal SCLERA: sclerae normal Neck/C-Spine: COMMON NORMALS: supple GENERAL: Yes trachea midline Resp: COMMON NORMALS: normal respiratory effort EFFORT & INSPECTION: Yes able to speak in complete sentences AUSCULTATION: diminished lung sounds Cardio: COMMON NORMALS: regular rate RATE: regular rate RHYTHM: abnormal rhythm irregularly irregular GI: COMMON NORMALS: Soft to palpation PALPATION: Yes Soft to palpation and No Tenderness to palpation present (GI) PERCUSSION: normal to percussion Extremity: GENERAL: Yes normal exam except as noted and No edema Neuro: COMMON NORMALS: patient oriented x3, CN's II-XII intact bilaterally, moves all extremities, no focal motor deficits and no sensory deficits noted SENSORIUM/ORIENTATION: Yes alert and No Orientation impaired Psych: COMMON NORMALS: mental status grossly normal and Normal thought process present THOUGHT PROCESS: Normal thought process present Course Vital Signs: Vital signs: Vital Signs Temperature 97.9 F 08/16/22 15:11 Pulse Rate 76 08/16/22 19:35 Respiratory Rate 16 08/16/22 19:35 Blood Pressure 151/85 08/16/22 19:35 Pulse Oximetry 93 08/16/22 19:35 Oxygen Delivery Nd thod 08/16/22 18:28 MDM - SOB/Dyspnea Medical Decision Making 77-year-old gentleman with history of COPD and atrial fibrillation presenting to the emergency department for headache and increased work of breathing. Exam as above. EKG personally interpreted by me and showing sinus rhythm with nonspecific ST segment abnormalities. There is interventricular conduction delay. No STEMI. In comparison to prior bradycardia is no longer present. Laboratory studies personally interpreted by me. Hematologic panel with no leukocytosis, near baseline anemia present, normal platelet count which is improved from prior. Metabolic panel with mild hyperkalemia and evidence of dehydration, CKD again noted. Negative range 2-hour delta troponin. BNP is mildly elevated. Rapid viral testing is negative. Chest x-ray interpreted by me with bibasilar consolidation which is mild., No pneumothorax. Confirmed with radiology interpretation. CT head with no large intracranial hemorrhage. No acute finding confirmed by radiology interpretation. The patient felt improved with ED treatment including IV fluids, analgesia, RT treatment and methylprednisolone. The most likely etiology of the patient's symptoms is likely multifactorial. Patient has COPD exacerbation however is on baseline room air and after treatment does not have evidence of dyspnea on exam. His headache is improved and represents nonspecific headache. I considered disposition options. Patient is comfortable with discharge The results of ED evaluation were discussed with the patient including prescriptions and/or symptomatic cares (if applicable) including appropriate and responsible use, followup plan, and return precautions. Plan to treat for COPD exacerbation with steroids, albuterol, antibiotic. The patient verbalized understanding and felt safe for discharge. A broad range of differentials were considered in this case and ED evaluation tailored to likely and clinically significant etiologies as appropriate. Medical complexity is increased by patient's significant pertinent comorbidities including atrial fibrillation, COPD. Based on my interaction with the patient and their medical understanding/literacy I believe that the presentation to the emergency department is reasonable as they could not differentiate and/or assess for potentially emergent conditions without my evaluation. I reviewed recent notes including cardiology note and discharge summary/H&P from prior hospitalization. I reviewed multiple prior imaging studies including chest x-rays, CT imaging of head abdomen and pelvis. I reviewed multiple prior laboratory studies for recent comparison. Medical Records I reviewed the patient's medical records. Lab Data I reviewed the patient's lab results. 08/16/22 15:48 08/16/22 15:48 Labs/Radiology: Radiology Impressions Chest X-Ray 08/16/22 15:17 IMPRESSION: Probable bilateral small volume pleural effusions. Head CT 08/16/22 15:56 IMPRESSION: No acute intracranial abnormality. Laboratory Results WBC 7.3 10^3/uL (4.0-10.0) 08/16/22 15:48 RBC 2.94 10^6/uL (4.1-5.3) L 08/16/22 15:48 Hgb 8.7 g/dL (11.7-16.6) L 08/16/22 15:48 Hct 27.9 % (42.0-52.0) L 08/16/22 15:48 MCV 94.9 fl (80-94) H 08/16/22 15:48 MCH 29.6 pg (28.0-34.0) 08/16/22 15:48 MCHC 31.2 g/dL (30.0-36.0) 08/16/22 15:48 RDW 16.0 % (12.1-15.1) H 08/16/22 15:48 Plt Count 153 10^3/cmm (130-400) 08/16/22 15:48 MPV 12.3 fL (7.4-10.4) H 08/16/22 15:48 Neut % (Auto) 73.9 % 08/16/22 15:48 Lymph % (Auto) 11.3 % 08/16/22 15:48 [place] % (Auto) 12.9 % 08/16/22 15:48 Eos % (Auto) 0.6 % 08/16/22 15:48 Baso % (Auto) 0.1 % 08/16/22 15:48 Neut # (Auto) 5.37 10^3/uL (1.8-7.7) 08/16/22 15:48 Lymph # (Auto) 0.8 10^3/uL (0.8-4.8) 08/16/22 15:48 [place] # (Auto) 0.9 10^3/uL (0.2-0.9) 08/16/22 15:48 Eos # (Auto) 0.0 10^3/uL (0.0-0.8) 08/16/22 15:48 Baso # (Auto) 0.0 10^3/uL (0.0-0.1) 08/16/22 15:48 Nucleated RBC % (auto) 0 % 08/16/22 15:48 Nucleated RBCs # 0.0 /100WBC 08/16/22 15:48 Sodium 140 mmol/L (136-145) 08/16/22 15:48 Potassium 5.3 mmol/L (3.5-5.1) H 08/16/22 15:48 Chloride 106 mmol/L (98-107) 08/16/22 15:48 Carbon Dioxide 20 mmol/L (22-29) L 08/16/22 15:48 Anion Gap 19.3 (5-19) H 08/16/22 15:48 BUN 20 mg/dL (8-23) 08/16/22 15:48 Creatinine 1.3 mg/dL (0.7-1.2) H 08/16/22 15:48 GFR Calculation Not Reportable 08/16/22 15:48 Glucose 87 mg/dL (65-115) 08/16/22 15:48 Calculated Osmolality 292 mOsm/kg (285-295) 08/16/22 15:48 Calcium 9.3 mg/dL (8.5-10.5) 08/16/22 15:48 Total Bilirubin 0.4 mg/dL (0.15-1.2) 08/16/22 15:48 AST 16 U/L (0-40) 08/16/22 15:48 ALT 10 U/L (0-41) 08/16/22 15:48 Alkaline Phosphatase 81 U/L (40-130) 08/16/22 15:48 Troponin T Baseline 36 ng/L (0-15) H 08/16/22 15:48 Troponin T 120 Minute 36.66 ng/L (0-15) H 08/16/22 17:50 Delta Troponin T 0.66 ABS# (0-10) 08/16/22 17:50 NT-Pro-B Natriuret Pep 1212 pg/mL (0-450) H 08/16/22 15:48 Total Protein 6.3 g/dL (6.6-8.7) L 08/16/22 15:48 Albumin 4.2 g/dL (3.5-5.2) 08/16/22 15:48 Globulin 2.1 g/dL (1.3-4.6) 08/16/22 15:48 Influenza Type A Ag negative (Negative) 08/16/22 17:30 Influenza Type B Ag negative (Negative) 08/16/22 17:30 SARS-CoV-2 Ag (Rapid) negative (Negative) 08/16/22 17:30 Discharge Plan Discharge Patient Disposition: Home Clinical Impression: Acute exacerbation of chronic obstructive airways disease, Headache Condition: Stable Prescriptions: New prednisone 50 mg tablet 50 mg PO DAILY 5 Days Qty: 5 0RF albuterol sulfate 90 mcg/actuation HFA aerosol inhaler 2 inh inhalation Q4H PRN (Reason: shortness of breath or wheezing) Qty: 8.5 0RF amoxicillin-pot clavulanate 875-125 mg tablet 1 tab PO BID Qty: 20 0RF No Action multivitamin Tablet 1 tab PO DAILY omeprazole 40 mg Capsule,Delayed Release(Dr/Ec) 40 mg PO BID metformin 1,000 mg Tablet 1,000 mg PO BID Hold Instructions: Resume on 12/12/22. lisinopril 10 mg Tablet 5 mg PO DAILY docusate sodium 100 mg Capsule 100 - 200 mg PO DAILY PRN (Reason: Constipation) albuterol sulfate 90 mcg/actuation Hfa Aerosol Inhaler 2 puff INHALATION Q4H PRN (Reason: Shortness Of Breath) Eliquis 5 mg Tablet 5 mg PO BID atorvastatin 80 mg Tablet 80 mg PO QPM cholecalciferol (vitamin D3) [Vitamin D3] 25 mcg (1,000 unit) Capsule 25 mcg PO DAILY insulin glargine [Lantus Solostar U-100 Insulin] 100 unit/mL (3 mL) Insulin Pen 15 unit SUBCUT BID@0630,1830 furosemide [Lasix] 40 mg Tablet 40 mg PO QAM glipizide 10 mg Tablet 20 mg PO BID prednisolone acetate 1 % Drops,Suspension 1 drp ophthalmic (eye) BID Rx Instructions: left eye fluticasone propion-salmeterol [Advair Diskus] 100-50 mcg/dose Blister With Device 1 inh INHALATION BID carboxymethylcellulose sodium [Refresh Liquigel] 1 % Drops, Liquid Gel 1 drp OPHTHALMIC (EYE) BID PRN (Reason: Dry Eye(S)) ferrous gluconate 324 mg (38 mg iron) Tablet 324 mg PO BID ipratropium-albuterol 20-100 mcg/actuation Mist 1 puff INHALATION Q6H PRN (Reason: Shortness Of Breath) diltiazem HCl 120 mg Capsule,Extended Release 24hr 120 mg PO DAILY 30 Days Qty: 30 2RF Discharge Orders: Discharge ED (Routine); Ordered 08/16/22 Ordered By: Cornell Hernandez Referrals: Paola Moore MD [Primary Care Provider] - Discharge Diet: Usual diet Discharge Activity: Increase activity as tolerated Patient Instructions: Dehydration (ED), Acute Headache (ED), Pneumonia (ED) Activity Restrictions/Additional Instructions: Thank you for visiting the emergency department. You were seen and evaluated for headache and generalized illness. The most likely cause of your symptoms is multifactorial including pneumonia with exacerbation of underlying lung disease. I will prescribe steroids and antibiotics. Please also use your albuterol metered-dose inhaler 2 puffs every 4 hours for 24 hours followed by 2 puffs every 6 hours for 24 hours followed by 2 puffs every 8 hours for 24 hours and then return to the normal schedule. Please follow-up with your primary care provider. Return to the emergency department for worsening symptoms or anything else that you are concerned about a feel needs emergency department evaluation. Coding Level of Care Code ED Hand Laminator for Deyanira Pinon
--- NOTE | 2022-08-16 15:17 | XRR_ITS ---
PROCEDURE INFORMATION: Exam: XR Chest Exam date and time: 08/16/2022 3:56 PM Age: 77 years old Clinical indication: Shortness of breath; Prior surgery; Surgery type: Bypass; Additional info: SOB TECHNIQUE: Imaging protocol: Radiologic exam of the chest. Views: 1 view. COMPARISON: CR XR chest 1V portable [id number] 04/27/2022 3:19 PM FINDINGS: Lungs: No consolidation. Pleural spaces: Probable bilateral small volume pleural effusions. No pneumothorax. Heart/Mediastinum: No cardiomegaly. Cardiac valve replacement noted. Bones/joints: Sternotomy wires noted. Visualized osseous structures are intact. XR/XR chest 1V portable [id number] IMPRESSION: Probable bilateral small volume pleural effusions.
--- NOTE | 2022-08-16 15:17 | ECG_ITS ---
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 Measurements Intervals [place] Rate: 50 P: 0 [place]: 0 QRS: 54 QRSD: 126 T: 32 QT: 422 QTc: 386 Interpretive Statements UNCERTAIN REGULAR RHYTHM MODERATE INTRAVENTRICULAR CONDUCTION DELAY [110+ ms QRS DURATION] NONSPECIFIC ST & T-WAVE ABNORMALITY Compared to ECG 06/21/2022 06:33:17 Intraventricular conduction delay now present T-wave abnormality now present Myocardial infarct finding no longer present ST (T wave) deviation no longer present Electronically Signed On 08-18-2022 7:45:42 COMMUNICATIONS EDITOR by Tito Hernandez M.D. [email or web address].Net Orange/store/[id number]
[2022-08-16] MEDS: ketorolac 30 mg/mL INJ 15 MG IVP (15:44)
[2022-08-16] MEDS: acetaminophen 500 mg Tablet 1000 MG PO (15:47)
--- NOTE | 2022-08-16 15:56 | CTR_ITS ---
PROCEDURE INFORMATION: Exam: CT Head Without Contrast Exam date and time: 08/16/2022 4:04 PM Age: 77 years old Clinical indication: Pain; Headache TECHNIQUE: Imaging protocol: Computed tomography of the head without contrast. Radiation optimization: All CT scans at this facility use at least one of these dose optimization techniques: automated exposure control; mA and/or kV adjustment per patient size (includes targeted exams where dose is matched to clinical indication); or iterative reconstruction. COMPARISON: CT head wo con* [id number] 04/04/2022 6:30 AM RADIATION DOSE METRICS: Total DLP (mGy-cm): 1110.59 FINDINGS: Brain: No hemorrhage. No edema. Moderate diffuse cerebral atrophy and sequela of chronic small vessel ischemic disease. No mass effect. Cerebral ventricles: No ventriculomegaly. Paranasal sinuses: Visualized sinuses are unremarkable. No fluid levels. Mastoid air cells: Visualized mastoid air cells are well aerated. Bones/joints: Unremarkable. No acute fracture. Soft tissues: Unremarkable. CT/CT head wo con* [id number] IMPRESSION: No acute intracranial abnormality.
[2022-08-16 16:04] LABS: Basophils % 0.1 %; Eosinophils % 0.6 %; Hematocrit 27.9 % (42.0-52.0); Hemoglobin 8.7 g/dL (11.7-16.6); Lymphocytes # 0.8 10^3/uL (0.8-4.8); Lymphocytes % 11.3 %; Mean Corpuscular HGB Conc 31.2 g/dL (30.0-36.0); Mean Corpuscular Hemoglobin 29.6 pg (28.0-34.0); Mean Corpuscular Volume 94.9 fl (80-94); Mean Platelet Volume 12.3 fL (7.4-10.4); Monocytes # 0.9 10^3/uL (0.2-0.9); Monocytes % 12.9 %; Neutrophils # 5.37 10^3/uL (1.8-7.7); Neutrophils % 73.9 %; Nucleated Red Blood Cells % 0 %; Platelet Count 153 10^3/cmm (130-400); Red Blood Count 2.94 10^6/uL (4.1-5.3); White Blood Count 7.3 10^3/uL (4.0-10.0)
[2022-08-16] MEDS: ipratropium-albuterol 3 mL Neb INHALATION (16:27)
[2022-08-16 16:28] VITALS: PULSE 47; RESP 18; O2SAT 95
[2022-08-16 16:31] VITALS: PULSE 42
[2022-08-16 16:50] LABS: Troponin(5th) Baseline 36 ng/L (0-15)
[2022-08-16 16:55] LABS: Alanine Aminotransferase 10 U/L (0-41); Albumin Level 4.2 g/dL (3.5-5.2); Alkaline Phosphatase 81 U/L (40-130); Anion Gap 19.3 (5-19); Aspartate Amino Transferase 16 U/L (0-40); Blood Urea Nitrogen 20 mg/dL (8-23); Calcium 9.3 mg/dL (8.5-10.5); Carbon Dioxide 20 mmol/L (22-29); Chloride 106 mmol/L (98-107); Globulin 2.1 g/dL (1.3-4.6); Glucose 87 mg/dL (65-115); NT Pro B Type Natriuretic Pept 1212 pg/mL (0-450); Osmolality Calculated 292 mOsm/kg (285-295); Potassium 5.3 mmol/L (3.5-5.1); Sodium 140 mmol/L (136-145); Total Bilirubin 0.4 mg/dL (0.15-1.2); Total Protein 6.3 g/dL (6.6-8.7)
[2022-08-16] MEDS: sodium chloride 0.9% 500 ML 999 ML IV (17:30)
--- NOTE | 2022-08-16 17:44 | ECG_ITS ---
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 Measurements Intervals [place] Rate: 58 P: -29 NV: 165 QRS: 82 QRSD: 124 T: 60 QT: 425 QTc: 417 Interpretive Statements SINUS BRADYCARDIA WITH OCCASIONAL SUPRAVENTRICULAR PREMATURE COMPLEXES MODERATE INTRAVENTRICULAR CONDUCTION DELAY [110+ ms QRS DURATION] NONSPECIFIC ST & T-WAVE ABNORMALITY Compared to ECG 08/16/2022 15:13:23 No significant changes Electronically Signed On 08-18-2022 7:50:29 RETURN AGENT AIRPORT by Tito Hernandez M.D. [id number]
[2022-08-16 18:06] LABS: Influenza A by IFA negative (Negative); Influenza B by IFA negative (Negative); SARS Covid-2 Antigen negative (Negative)
[2022-08-16 18:28] VITALS: BP 133/92; O2SAT 98
[2022-08-16 19:05] LABS: Troponin 5 2HR 36.66 ng/L (0-15)
[2022-08-16 19:12] LABS: Troponin 5 2HR Delta 0.66 ABS# (0-10)
[2022-08-16 19:35] VITALS: BP 151/85; PULSE 76; RESP 16; O2SAT 93
--- NOTE | 2022-08-16 19:45 | PC.NURSE ---
PO tylenol. Pt sent home with Tylenol 1000mg to take later on.
== END 2022-08-16 19:51 | disposition home or self-care (01) ==
PROVIDERS: Emergency Provider Emergency Medicine; PCP Family Medicine
DX: J44.1 Chronic obstructive pulmonary disease with (acute) exacerbation (principal); R51.9 Headache, unspecified; Z79.01 Long term (current) use of anticoagulants; Z79.84 Long term (current) use of oral hypoglycemic drugs; Z79.4 Long term (current) use of insulin; Z20.822 Contact with and (suspected) exposure to COVID-19; F17.210 Nicotine dependence, cigarettes, uncomplicated; I13.0 Hypertensive heart and chronic kidney disease with heart failure and stage 1 through stage 4 chronic kidney disease, or unspecified chronic kidney disease; E11.22 Type 2 diabetes mellitus with diabetic chronic kidney disease; N18.9 Chronic kidney disease, unspecified; I50.9 Heart failure, unspecified; I25.10 Atherosclerotic heart disease of native coronary artery without angina pectoris; Z95.1 Presence of aortocoronary bypass graft
CPT/HCPCS: 36415; 70450; 71045; 80053; 83880; 84484; 85025; 87040; 87426; 87804; 93005; 94640; 96361; 96374; 96375; 99285; J1885; J2930; J7040

== ENCOUNTER 2022-09-10 16:34 | Inpatient (IN) | payer OTHER, SELFPAY ==
[2022-09-10] VITALS (10 sets, daily range): BP systolic 132–141; BP diastolic 35–42; PULSE 51–59; RESP 18–27; TEMP 36.9; O2SAT 93–98; BMI 25.7
--- NOTE | 2022-09-10 16:53 | ED_ITS ---
HPI - SOB/Dyspnea General: Chief Complaint: Shortness of Breath/Dyspnea Stated Complaint: RESPIRATORY DISTRESS Time Seen by Provider: 09/10/22 16:52 History of Present Illness: HPI Narrative: Mr. Irving is a 77-year-old gentleman with complex past medical history including atrial fibrillation, COPD presenting to the emergency department for generalized illness. He reports a few day history of diarrhea and some lower abdominal pain mostly with radiation to the back. Additionally he was in respiratory distress despite his supplemental oxygen for EMS. He does endorse cough and generalized malaise. Denies fevers. No other specific changes in health, exacerbating, or alleviating factors identified. Onset (ago): day(s) Timing: constant Severity: moderate Exacerbating factors: exertion Known history of: COPD Associated symptoms: Reports abdominal pain, nausea and other Review of Systems General: Reports: 10 or more systems reviewed and unremarkable except in HPI and below GI: Reports: abdominal pain and nausea PFS ED PFSH: Medical History Abdominal pain Acute exacerbation of chronic obstructive pulmonary disease (COPD) Acute kidney injury Aortic stenosis Atrial fibrillation Chronic kidney failure Congestive heart failure (CHF) COPD (chronic obstructive pulmonary disease) Coronary artery disease Diabetes mellitus Digoxin overdose HTN (hypertension) Hyperkalemia Hypomagnesemia Hyponatremia Hypoxia Ischemic cardiomyopathy Moderate aortic stenosis Poisoning by calcium-channel blockers Rhabdomyolysis Suspected 2019-nCoV infection Symptomatic bradycardia Vomiting Surgical History History of mitral valve replacement with bioprosthetic valve 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 Family History Mother Stroke Denies family history of Diabetes CAD (coronary artery disease) Clotting disorder Dementia Social History Smoking and tobacco status: light tobacco smoker Quit status (tobacco): has quit using tobacco Year quit tobacco: 2017 Former quit date comment: smoked 1 pack per day x 36 years Alcohol intake: current Household members: spouse Housing: House 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 Const: COMMON NORMALS: alert GENERAL APPEARANCE: cooperative, well developed and ill appearing HENMT: COMMON NORMALS: normocephalic and atraumatic HEAD & SCALP: normocephalic and atraumatic Eye: COMMON NORMALS: conjunctivae normal CONJUNCTIVA: Yes conjunctivae normal SCLERA: sclerae normal Neck/C-Spine: COMMON NORMALS: supple GENERAL: Yes trachea midline Resp: EFFORT & INSPECTION: Yes tachypneic AUSCULTATION: rhonchi and diminished lung sounds Cardio: COMMON NORMALS: regular rate and regular rhythm RATE: regular rate RHYTHM: regular rhythm GI: COMMON NORMALS: Soft to palpation PALPATION: Yes Soft to palpation and Yes Tenderness to palpation present (GI) Extremity: GENERAL: Yes normal exam except as noted and No edema Neuro: COMMON NORMALS: moves all extremities SENSORIUM/ORIENTATION: Yes alert and No Orientation impaired Psych: COMMON NORMALS: mental status grossly normal and Normal thought process present THOUGHT PROCESS: Normal thought process present Course Vital Signs: Vital signs: Vital Signs Temperature 97.9 F 09/15/22 12:00 Pulse Rate 91 09/15/22 12:00 Respiratory Rate 16 09/15/22 12:00 Blood Pressure 135/77 09/15/22 12:00 Pulse Oximetry 94 09/15/22 12:00 Oxygen Delivery Me thod 09/15/22 11:43 Oxygen Flow Rate 2 09/15/22 11:43 MDM - SOB/Dyspnea Medical Decision Making 77-year-old gentleman presenting with abdominal pain and respiratory symptoms. Patient on nasal cannula 4 L at 85 to 87%. He received albuterol, steroids, and was placed on CPAP. Exam as above. RT to bedside ABG pH 7.48, PCO2 31.3, PO2 66 on supplemental oxygen. EKG notable for atrial fibrillation with slowed response, no STEMI. Labs history significant for cytosis, normocytic anemia, normal platelet count. Metabolic panel with hyponatremia and hypokalemia, patient is significant NADER, elevated lactic and hypomagnesemia present. Initial troponin elevated with negative range 2-hour delta of your BNP is elevated at baseline. Chest x-ray demonstrates retrocardiac consolidation and pleural effusions. CT with likely pneumonia and gastroenteritis. During ED course patient treated with albuterol, insulin and D50, broad-spectrum antibiotics, fluids, calcium, magnesium replenishment. Nephrology consulted. Most likely etiology patient symptoms is NADER with electrolyte treat in the context of enteritis and pneumonia with exacerbation of underlying lung disease. The results of ED evaluation were discussed with the patient including plan for admission due to requirement for level of care not available if discharged to prevent significant worsening/deterioration. Patient agreeable with plan. Discussed with hospitalist service who was agreeable to admit patient. Medical Records I reviewed the patient's medical records. Lab Data I reviewed the patient's lab results. 09/15/22 01:02 09/15/22 11:42 Labs/Radiology: Radiology Impressions Chest X-Ray 09/10/22 17:29 IMPRESSION: 1. Retrocardiac consolidation that may be secondary to atelectasis or in the appropriate clinical setting, pneumonia. 2. A layering small left pleural effusion or pleural thickening, not significantly changed from the comparison examinations. ADDENDUM: 09/10/221944 Findings were discussed with Cornell Hernandez at 09/10/2022 7:43 PM CLAIM EXAMINER. Chest/Abdomen/Pelvis CT 09/10/22 18:55 IMPRESSION: 1. Left retrocardiac and lingular patchy consolidation that in the appropriate clinical setting, may represent pneumonia. Aspiration may present a similar picture. 2. Peribronchial thickening/inflammatory changes noted in the right upper lobe consistent with a focal area bronchitis/pneumonitis. 3. A small left pleural effusion. 4. Severe coronary artery atherosclerotic disease, status post surgical revascularization and mitral valve replacement. IMPRESSION: 1. Findings consistent with gastroenteritis and a diarrheal state. 2. Moderate diverticulosis of the left colon without acute diverticulitis. 3. 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 Renal Ultrasound 09/11/22 23:14 IMPRESSION: 1. No hydronephrosis or solid mass. 2. Stable 2.3 cm RIGHT renal cyst. Laboratory Results WBC 34.3 10^3/uL (4.0-10.0) H* 09/10/22 17:41 RBC 3.27 10^6/uL (4.1-5.3) L 09/10/22 17:41 Hgb 9.7 g/dL (11.7-16.6) L 09/10/22 17:41 Hct 30.7 % (42.0-52.0) L 09/10/22 17:41 MCV 93.9 fl (80-94) 09/10/22 17:41 MCH 29.7 pg (28.0-34.0) 09/10/22 17:41 MCHC 31.6 g/dL (30.0-36.0) 09/10/22 17:41 RDW 16.7 % (12.1-15.1) H 09/10/22 17:41 Plt Count 213 10^3/cmm (130-400) 09/10/22 17:41 MPV 12.2 fL (7.4-10.4) H 09/10/22 17:41 Neut % (Auto) 85.6 % 09/10/22 17:41 Lymph % (Auto) 1.6 % 09/10/22 17:41 [place] % (Auto) 9.8 % 09/10/22 17:41 Eos % (Auto) 0.0 % 09/10/22 17:41 Baso % (Auto) 0.1 % 09/10/22 17:41 Neut # (Auto) 29.38 10^3/uL (1.8-7.7) H 09/10/22 17:41 Lymph # (Auto) 0.6 10^3/uL (0.8-4.8) L 09/10/22 17:41 [place] # (Auto) 3.4 10^3/uL (0.2-0.9) H 09/10/22 17:41 Eos # (Auto) 0.0 10^3/uL (0.0-0.8) 09/10/22 17:41 Baso # (Auto) 0.1 10^3/uL (0.0-0.1) 09/10/22 17:41 Nucleated RBC % (auto) 0 % 09/10/22 17:41 Nucleated RBCs # 0.0 /100WBC 09/10/22 17:41 Specimen Type Arterial 09/10/22 17:28 Sample Site Radial, left 09/10/22 17:28 ABG pH 7.48 (7.35-7.45) H 09/10/22 17:28 ABG pCO2 31.3 mmHg (35-45) L 09/10/22 17:28 ABG pO2 66.0 mmHg (80.0-100.0) L 09/10/22 17:28 ABG HCO3 23.3 mmol/L (22-26) 09/10/22 17:28 ABG Base Excess 0.2 mmol/L (-2.0-2.0) 09/10/22 17:28 Lei Test Pos 09/10/22 17:28 Hematocrit 30.6 % (42-52) L 09/10/22 17:28 O2 Delivery Device Nc 09/10/22 17:28 O2 Liters/Min 4.0 % 09/10/22 17:28 FiO2 36.0 % 09/10/22 17:28 Event Coordinator Marketing And Sales ID [email or web address] 09/10/22 17:28 Sodium 131 mmol/L (136-145) L 09/10/22 17:41 Potassium 7.6 mmol/L (3.5-5.1) H* 09/10/22 17:41 Chloride 89 mmol/L (98-107) L 09/10/22 17:41 Carbon Dioxide 24 mmol/L (22-29) 09/10/22 17:41 Anion Gap 25.6 (5-19) H 09/10/22 17:41 BUN 48 mg/dL (8-23) H 09/10/22 17:41 Creatinine 5.2 mg/dL (0.7-1.2) H 09/10/22 17:41 GFR Calculation Not Reportable 09/10/22 17:41 Glucose 226 mg/dL (65-115) H 09/10/22 17:41 Calculated Osmolality 292 mOsm/kg (285-295) 09/10/22 17:41 Lactate 2.3 mmol/L (0.5-2.2) H 09/10/22 17:41 Calcium 9.2 mg/dL (8.5-10.5) 09/10/22 17:41 Magnesium 1.4 mg/dL (1.7-2.3) L 09/10/22 17:41 Total Bilirubin 0.7 mg/dL (0.15-1.2) 09/10/22 17:41 AST 27 U/L (0-40) 09/10/22 17:41 ALT 10 U/L (0-41) 09/10/22 17:41 Alkaline Phosphatase 82 U/L (40-130) 09/10/22 17:41 Troponin T Baseline 120 ng/L (0-15) H* 09/10/22 17:41 Troponin T 120 Minute 111.3 ng/L (0-15) H 09/10/22 19:20 Delta Troponin T -8.7 ABS# (0-10) L 09/10/22 19:20 NT-Pro-B Natriuret Pep 7948 pg/mL (0-450) H 09/10/22 17:41 Total Protein 6.7 g/dL (6.6-8.7) 09/10/22 17:41 Albumin 4.4 g/dL (3.5-5.2) 09/10/22 17:41 Globulin 2.3 g/dL (1.3-4.6) 09/10/22 17:41 Lipase 43 U/L (13-60) 09/10/22 17:41 TSH 3.22 uIU/mL (0.27-4.20) 09/10/22 17:41 Urine Color Yellow (Yellow) 09/10/22 19:17 Urine Appearance Clear (CLEAR) 09/10/22 19:17 Urine pH 5 (5-7) 09/10/22 19:17 Ur Specific [place] 1.020 (1.005-1.030) 09/10/22 19:17 Urine Protein 1+ (Negative) H 09/10/22 19:17 Urine Glucose (UA) Norm (Normal) 09/10/22 19:17 Urine Ketones Negative (Negative) 09/10/22 19:17 Urine Blood 3+ (Negative) H 09/10/22 19:17 Urine Nitrate Negative (Negative) 09/10/22 19:17 Urine Bilirubin 1+ (Negative) H 09/10/22 19:17 Urine Urobilinogen Norm mg/dL (Negative) 09/10/22 19:17 Ur Leukocyte Esterase Negative (Negative) 09/10/22 19:17 Urine RBC 0-4 /hpf (0-2) H 09/10/22 19:17 Urine WBC 0-4 /hpf (0-5) H 09/10/22 19:17 Ur Squamous Epith Cells 0-4 /hpf (0-5) H 09/10/22 19:17 Amorphous Sediment Not Reportable 09/10/22 19:17 Urine Bacteria Trace /hpf (NONE) 09/10/22 19:17 Coronavirus 229E (PCR) Not detected (NOT DETECT) 09/10/22 17:55 SARS-CoV-2 (PCR) Not detected (NOT DETECT) 09/10/22 17:55 Critical Care Time Critical Care Time: Critical Care Time: Yes Total Critical Care Time: 45 Attestation: Due to a high probability of clinically significant, possibly life threatening deterioration, the patient required my highest level of attention and preparedness to intervene emergently and I personally spent this critical care time directly and personally managing the patient. This critical care time included obtaining a history; examining the patient; pulse oximetry; ordering and review of laboratory and imaging studies; arranging urgent treatment with development of a management plan; evaluation of patient's response to treatment; frequent reassessment; and, discussions with other providers as applicable. It was exclusive of separately billable procedures. Primary this involved is metabolic Discharge Plan Discharge Patient Disposition: Admitted As Inpatient Admit Provider: Yung Morrison Clinical Impression: Pneumonia, NADER (acute kidney injury), Acute hyperkalemia Condition: Stable Coding Level of Care Code ED Clinical Secretary for Deyanira Pinon
--- NOTE | 2022-09-10 17:29 | XRR_ITS ---
PROCEDURE INFORMATION: Exam: XR Chest Exam date and time: 09/10/2022 6:59 PM Age: 77 years old Clinical indication: Cough and shortness of breath; Additional info: SOB TECHNIQUE: Imaging protocol: Radiologic exam of the chest. Views: 1 view. COMPARISON: 1. CR (CHEST, ) 08/16/2022 3:56 PM 2. XR CHEST 1V PORTABLE 04/27/2022 3:20 PM FINDINGS: Tubes, catheters and devices: EKG monitoring leads overlie the thoracic wall. Lungs: There is retrocardiac consolidation. Pleural spaces: There is a small left layering pleural effusion or pleural thickening. No pneumothorax. Heart/Mediastinum: Normal in size. There has been a median sternotomy for coronary revascularization and mitral valve replacement. Bones/joints: No acute fracture. XR/XR chest 1V portable [id number] IMPRESSION: 1. Retrocardiac consolidation that may be secondary to atelectasis or in the appropriate clinical setting, pneumonia. 2. A layering small left pleural effusion or pleural thickening, not significantly changed from the comparison examinations.
[2022-09-10 17:41] LABS: ABG PCO2 31.3 mmHg (35-45); ABG PH Result 7.48 (7.35-7.45); Arterial Blood Gas Hematocrit 30.6 % (42-52); Base Excess ABG 0.2 mmol/L (-2.0-2.0); Blood Gas Allen Test Pos; Blood Gas Operator Identificat MONRO; Blood Gas Sample Site Radial, left; Blood Gas Sample Type Arterial; HCO3 ABG 23.3 mmol/L (22-26); Oxygen Device NC
--- NOTE | 2022-09-10 17:41 | ECG_ITS ---
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 Measurements Intervals [place] Rate: 41 P: 0 VT: 0 QRS: -38 QRSD: 118 T: 163 QT: 484 QTc: 403 Interpretive Statements ATRIAL FIBRILLATION WITH SLOW VENTRICULAR RESPONSE INDETERMINATE AXIS ANTEROSEPTAL MYOCARDIAL INFARCTION , PROBABLY RECENT [40+ ms Q WAVE IN V1-V4] ACUTE [place] Compared to ECG 08/16/2022 17:44:38 Indeterminate axis now present Myocardial infarct finding now present Sinus bradycardia no longer present Intraventricular conduction delay no longer present T-wave abnormality no longer present Electronically Signed On 09-10-2022 20:08:12 SOFTWARE ENGINEERING ASSOCIATE MANAGER by Ariana Schwartz M.D. [email or web address].[email or web address]/store/[id number]
[2022-09-10 18:17] LABS: Basophils # 0.1 10^3/uL (0.0-0.1); Basophils % 0.1 %; Hematocrit 30.7 % (42.0-52.0); Hemoglobin 9.7 g/dL (11.7-16.6); Lymphocytes # 0.6 10^3/uL (0.8-4.8); Lymphocytes % 1.6 %; Mean Corpuscular HGB Conc 31.6 g/dL (30.0-36.0); Mean Corpuscular Hemoglobin 29.7 pg (28.0-34.0); Mean Corpuscular Volume 93.9 fl (80-94); Mean Platelet Volume 12.2 fL (7.4-10.4); Monocytes # 3.4 10^3/uL (0.2-0.9); Monocytes % 9.8 %; Neutrophils # 29.38 10^3/uL (1.8-7.7); Neutrophils % 85.6 %; Nucleated Red Blood Cells % 0 %; Platelet Count 213 10^3/cmm (130-400); Red Blood Count 3.27 10^6/uL (4.1-5.3); Red Cell Distribution Width 16.7 % (12.1-15.1)
[2022-09-10 18:27] LABS: White Blood Count 34.3 10^3/uL (4.0-10.0)
[2022-09-10 18:39] LABS: Lactate (Lactic Acid level) 2.3 mmol/L (0.5-2.2)
[2022-09-10 18:48] LABS: Troponin(5th) Baseline 120 ng/L (0-15)
[2022-09-10 18:50] LABS: Alanine Aminotransferase 10 U/L (0-41); Albumin Level 4.4 g/dL (3.5-5.2); Alkaline Phosphatase 82 U/L (40-130); Anion Gap 25.6 (5-19); Aspartate Amino Transferase 27 U/L (0-40); Blood Urea Nitrogen 48 mg/dL (8-23); Calcium 9.2 mg/dL (8.5-10.5); Carbon Dioxide 24 mmol/L (22-29); Chloride 89 mmol/L (98-107); Globulin 2.3 g/dL (1.3-4.6); Glucose 226 mg/dL (65-115); Lipase 43 U/L (13-60); Magnesium 1.4 mg/dL (1.7-2.3); NT Pro B Type Natriuretic Pept 7948 pg/mL (0-450); Osmolality Calculated 292 mOsm/kg (285-295); Sodium 131 mmol/L (136-145); Thyroid Stimulating Hormone 3.22 uIU/mL (0.27-4.20); Total Bilirubin 0.7 mg/dL (0.15-1.2); Total Protein 6.7 g/dL (6.6-8.7)
[2022-09-10 18:51] LABS: Potassium 7.6 mmol/L (3.5-5.1)
[2022-09-10] MEDS: piperacillin-tazobactam 3.375 GM in sodium chloride 0.9% (plus) 50 ML IV (18:55)
--- NOTE | 2022-09-10 18:55 | CTR_ITS ---
PROCEDURE INFORMATION: Exam: CT Chest Without Contrast; Diagnostic Exam date and time: 09/10/2022 8:39 PM Age: 77 years old Clinical indication: Other: Vidal. Hyperpotassemia; Shortness of breath; Prior surgery; Surgery type: Cabg. Mitral valve; Patient HX: SOB with hyperpotassemia and vidal. ; Additional info: SOB, vidal, abd pain TECHNIQUE: Imaging protocol: Diagnostic computed tomography of the chest without contrast. Radiation optimization: All CT scans at this facility use at least one of these dose optimization techniques: automated exposure control; mA and/or kV adjustment per patient size (includes targeted exams where dose is matched to clinical indication); or iterative reconstruction. Other protocol: This patient has received 4 known CTs and 0 known cardiac nuclear medicine studies in the 12 months prior to the current study. COMPARISON: CR (CHEST, ) 09/10/2022 6:59 PM RADIATION DOSE METRICS: Total DLP (mGy-cm): 519.08 FINDINGS: Lungs: There is mosaic attenuation of the lung parenchyma as seen in small airways disease. There is a small area of peribronchial thickening/inflammatory changes in the suprahilar region of the right upper lobe. Pleural spaces: A small left pleural effusion is present, similar to that of the comparison study. Heart: There is left lower lobe retrocardiac and lingular patchy consolidation. Coronary arteries: There is severe atherosclerotic calcification of the coronary arteries. There has been a median sternotomy for coronary revascularization. There has been mitral valvular replacement. Esophagus: No focal wall thickening. Mediastinal space: There are no enlarged mediastinal lymph nodes or masses. Lymph nodes: No enlarged hilar lymph nodes. Vasculature: There is no thoracic aortic aneurysm. There are moderate atherosclerotic calcifications scattered throughout the thoracic aorta. Liver: Normal in size and homogeneous density. Bones/joints: No acute fracture. There has been a median sternotomy. There is segmental ossification of the anterior longitudinal ligament consistent with benign diffuse idiopathic skeletal hyperostosis (DISH). Soft tissues: Unremarkable. PROCEDURE INFORMATION: Exam: CT Abdomen And Pelvis Without Contrast Exam date and time: 09/10/2022 8:39 PM Age: 77 years old Clinical indication: Other: Vidal. Hyperpotassemia; Shortness of breath; Prior surgery; Surgery type: Cabg. Mitral valve; Patient HX: SOB with hyperpotassemia and vidal. ; Additional info: SOB, vidal, abd pain TECHNIQUE: Imaging protocol: Computed tomography of the abdomen and pelvis without contrast. Radiation optimization: All CT scans at this facility use at least one of these dose optimization techniques: automated exposure control; mA and/or kV adjustment per patient size (includes targeted exams where dose is matched to clinical indication); or iterative reconstruction. Other protocol: This patient has received 4 known CTs and 0 known cardiac nuclear medicine studies in the 12 months prior to the current study. COMPARISON: CT abdomen pelvis w con* [id number] 06/20/2022 8:35 PM RADIATION DOSE METRICS: Total DLP (mGy-cm): 519.08 FINDINGS: Lungs: There is patchy consolidation in the left lower lobe. Liver: The liver is normal in size and homogeneous density. Gallbladder and bile ducts: No calcified gallstones. No ductal dilation. Pancreas: Normal size and homogeneous density. No ductal dilation. Spleen: The spleen is top-normal in size measuring 12 cm in length. It contains a small punctate granuloma. Adrenal glands: Normal. No mass. Kidneys and ureters: No evidence of hydronephrosis. No renal or ureteral calculi. There are vascular calcifications in both renal julieta. Stomach and bowel: There is thickening of the gastric wall that may be secondary to gastritis or underdistension. There is no evidence of small bowel or colonic obstruction. There are multiple, small bowel loops with thickened mcrae consistent with enteritis (axial series 15, images 43 - 66; coronal series 16, image 22). There is fluid and stool throughout the colon consistent with a diarrheal state. Moderate diverticulosis is present in the left colon without acute diverticulitis. Appendix: No evidence of appendicitis. Intraperitoneal space: No free air. No significant fluid collection. Vasculature: There is moderate atherosclerotic calcification of the abdominal aorta and its branches. In the mid infrarenal aorta, there is a small aneurysm measuring 3.3 cm in diameter, stable from the comparison study. There are no para-aortic fluid collections to suggest leakage. Lymph nodes: No enlarged retroperitoneal or mesenteric lymph nodes. Urinary bladder: The bladder is mostly decompressed by Ortiz catheter. There is bladder wall thickening that may be secondary to cystitis, underdistension or increased trabeculation. Reproductive: Unremarkable as visualized. Bones/joints: No acute fracture. There are multilevel anterior osteophytes and degenerative disc disease. Soft tissues: Unremarkable. CT/[place] [id number] IMPRESSION: 1. Left retrocardiac and lingular patchy consolidation that in the appropriate clinical setting, may represent pneumonia. Aspiration may present a similar picture. 2. Peribronchial thickening/inflammatory changes noted in the right upper lobe consistent with a focal area bronchitis/pneumonitis. 3. A small left pleural effusion. 4. Severe coronary artery atherosclerotic disease, status post surgical revascularization and mitral valve replacement. IMPRESSION: 1. Findings consistent with gastroenteritis and a diarrheal state. 2. Moderate diverticulosis of the left colon without acute diverticulitis. 3. 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
[2022-09-10] MEDS: calcium gluconate 0.9% NaCL 1 GM/50 ML PREMIX IV ×2 (19:25→22:17)
--- NOTE | 2022-09-10 19:29 | ECG_ITS ---
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 Measurements Intervals [place] Rate: 49 P: -19 ND: 142 QRS: 69 QRSD: 104 T: 132 QT: 472 QTc: 428 Interpretive Statements SINUS BRADYCARDIA ANTEROSEPTAL MYOCARDIAL INFARCTION , PROBABLY RECENT [40+ ms Q WAVE IN V1-V4] ACUTE [place] Nonspecific T wave change Compared to ECG 09/10/2022 17:41:48 Atrial fibrillation no longer present Indeterminate axis no longer present Myocardial infarct finding still present Electronically Signed On 09-10-2022 20:19:39 TRIAGE SPECIALIST by Ariana Schwartz M.D. [id number]
[2022-09-10] MEDS: albuterol 2.5 mg/3 mL Neb INHALATION ×2 (19:31→22:19)
[2022-09-10] MEDS: dextrose 50% syringe 50 mL IVP (19:48)
[2022-09-10] MEDS: insulin regular-human 100 units/1 mL 10 UNIT IVP (19:51)
[2022-09-10 20:10] LABS: Troponin 5 2HR Delta -8.7 ABS# (0-10)
[2022-09-10] MEDS: magnesium sulfate premix 4 GM/100 ML PREMIX IV (20:10)
[2022-09-10] MEDS: sodium chloride 0.9% 500 ML 999 ML IV ×3 (20:10→23:00)
[2022-09-10 20:11] LABS: Troponin 5 2HR 111.3 ng/L (0-15)
[2022-09-10 20:19] LABS: Bilirubin Urine 1+ (Negative); Blood Urine 3+ (Negative); Protein Urine 1+ (Negative); Urine Appearance Clear (CLEAR); Urine Color Yellow (Yellow); pH Urine 5 (5-7)
[2022-09-10] MEDS: vancomycin 1,500 MG/300 ML PIGGYBACK 200 MG IV (20:19)
[2022-09-10 20:20] LABS: Add Urine Microscopic? YES
[2022-09-10 20:22] LABS: Squamous Epithelial Cell Urine 0-4 /hpf (0-5)
[2022-09-10 20:23] LABS: Add Urine Culture? No
[2022-09-10 21:15] LABS: Adenovirus Not Detected (NOT DETECT); Chlamydia Pneumoniae Not Detected (NOT DETECT); Coronavirus 229E,HKU1,NL63,OC4 Not Detected (NOT DETECT); Human Metapneumovirus Not Detected (NOT DETECT); Human Rhinovirus/Enterovirus Not Detected (NOT DETECT); Influenza A Not Detected (NOT DETECT); Influenza A H1 Not Detected (NOT DETECT); Influenza A H1-2009 Not Detected (NOT DETECT); Influenza A H3 Not Detected (NOT DETECT); Influenza B Not Detected (NOT DETECT); Mycoplasma Pneumoniae Not Detected (NOT DETECT); Parainfluenza Virus Type 1 Not Detected (NOT DETECT); Parainfluenza Virus Type 2 Not Detected (NOT DETECT); Parainfluenza Virus Type 3 Not Detected (NOT DETECT); Parainfluenza Virus Type 4 Not Detected (NOT DETECT); Respiratory Syncytial Virus A Not Detected (NOT DETECT); Respiratory Syncytial Virus B Not Detected (NOT DETECT); SARS-COV-2 Not Detected (NOT DETECT)
[2022-09-10 21:43] LABS: Bacteria Urine TRACE /hpf; Glucose Urine UA Norm (Normal); Ketones Urine Negative (Negative); Leukocyte Esterase Urine Negative (Negative); Nitrate Urine Negative (Negative); RBC Urine 0-4 /hpf (0-2); Urobilinogen Urine Norm (Negative); WBC Urine 0-4 /hpf (0-5)
--- NOTE | 2022-09-10 22:58 | P.HP_ITS ---
Providers/Chief Complaint Admitting Physician: Yung Morrison MD Primary Care Provider: Paola Moore MD Chief Complaint: RESPIRATORY DISTRESS History of Present Illness Anuj Irving is a 77 year old male with PMH of ?COPD, atrial fibrillation, coronary artery disease, diabetes mellitus, hypertension, ischemic cardiomyopathy, moderate aortic stenosis, patient likely has underlying sick sinus syndrome, was according to patient he does have episodes of bradycardia event at home, came in today with chief complaint of lower abdominal pain as well as diarrhea going on for the last 3 days, patient is a poor historian, but currently he denies any chest pain shortness of breath fever nausea vomiting cough, states that he was having good urine output at home, I will have to corroborate his complaints with the family members, as it looks like that patient is not a very good historian. CT chest abdomen and pelvis without contrast had shown: Left retrocardiac and lingular patchy consolidation, Peribronchial thickening/inflammatory changes noted in the right upper lobe consistent with a focal area bronchitis/pneumonitis. A small left pleural effusion. Abdomen and pelvis findings: Suggestive of possible gastroenteritis. EKG : Atrial fibrillation with slow ventricular response Pertinent labs WBC 34.3, H&H 9.7/30, PLT : 213 , serum sodium 131 serum potassium 7.6, BUN 48 serum creatinine 5.2, serum lactic acid 2.3, AST ALT alk phos T. bili normal Troponin trend:120-111 Urinalysis: Urine WBC 0-4, urine bacteria trace, 3+ blood, nitrate negative, leukocyte esterase negative Patient received hyperkalemia cocktail, has also received , patient has received normal saline bolus. Review of Systems General: Reports: 10 or more systems reviewed and unremarkable except in HPI and below Const: Denies: fever(s), chills, body aches, change in appetite or diaphoresis Card: Denies: palpitations, edema, swelling of feet/ankles, dyspnea on exertion, orthopnea or leg pain with exertion Resp: Denies: dyspnea, productive cough, wheezing or pain on inspiration GI: Reports: abdominal pain and diarrhea; Denies: nausea, vomiting or constipation : Denies: flank pain or difficulty urinating Musc: Denies: back pain, extremity pain or extremity swelling Neuro: Denies: headache(s), difficulty walking or confusion Medications/Allergies Home Medications Medication Instructions Recorded Confirmed Last Taken Type albuterol sulfate 90 mcg/actuation 2 puff inhalation Q4H PRN 07/12/21 09/10/22 Unknown History aerosol inhaler Shortness Of Breath apixaban 5 mg tablet (Eliquis) 5 mg PO BID 07/12/21 09/10/22 09/10/22 History atorvastatin 80 mg tablet 80 mg PO QPM 07/12/21 09/10/22 09/09/22 History cholecalciferol (vitamin D3) 25 25 mcg PO DAILY 07/12/21 09/10/22 09/09/22 History mcg (1,000 unit) capsule (Vitamin D3) docusate sodium 100 mg capsule 100 - 200 mg PO DAILY PRN 07/12/21 09/10/22 06/20/22 History Constipation insulin glargine 100 unit/mL (3 15 unit SUBCUT BID@0630,1830 07/12/21 09/10/22 09/10/22 History mL) subcutaneous pen (Lantus Solostar U-100 Insulin) lisinopril 10 mg tablet 5 mg PO DAILY 07/12/21 09/10/22 09/10/22 History metformin 1,000 mg tablet 1,000 mg PO BID 07/12/21 09/10/22 09/10/22 History multivitamin 1 tab PO DAILY 07/12/21 09/10/22 09/10/22 History omeprazole 40 mg capsule,delayed 40 mg PO BID 07/12/21 09/10/22 09/10/22 History release carboxymethylcellulose sodium 1 % 1 drp ophthalmic (eye) BID PRN Dry 11/26/21 09/10/22 Unknown History eye liquid gel drops (Refresh Eye(S) Liquigel) ferrous gluconate 324 mg (38 mg 324 mg PO BID 11/26/21 09/10/22 09/10/22 History iron) tablet fluticasone 100 mcg-salmeterol 50 1 inh inhalation BID 11/26/21 09/10/22 09/09/22 History mcg/dose blistr powdr for inhalation (Advair Diskus) furosemide 40 mg tablet (Lasix) 40 mg PO QAM 11/26/21 09/10/22 09/10/22 History glipizide 10 mg tablet 20 mg PO BID 11/26/21 09/10/22 09/10/22 History ipratropium 20 mcg-albuterol 100 1 puff inhalation Q6H PRN 11/26/21 09/10/22 Unknown History mcg/actuation mist for inhalation Shortness Of Breath prednisolone acetate 1 % eye 1 drp ophthalmic (eye) BID 11/26/21 09/10/22 09/10/22 History drops,suspension diltiazem HCl 120 mg 120 mg PO DAILY 30 days #30 caps 06/22/22 09/10/22 09/09/22 Rx capsule,extended release 24 hr albuterol sulfate 90 mcg/actuation 2 inh inhalation Q4H PRN shortness 08/16/22 09/10/22 Unknown Rx aerosol inhaler of breath or wheezing #8.5 grams Allergies Allergy/AdvReac Type Severity Reaction Status Date / Time No Known Allergies Allergy Verified 06/29/22 09:24 PFSH Acute PFSH: Medical History (Updated 09/10/22 @ 23:21 by Yung Morrison MD) Abdominal pain Acute exacerbation of chronic obstructive pulmonary disease (COPD) Acute kidney injury Aortic stenosis Atrial fibrillation Chronic kidney failure Congestive heart failure (CHF) COPD (chronic obstructive pulmonary disease) Coronary artery disease Diabetes mellitus Digoxin overdose HTN (hypertension) Hyperkalemia Hypomagnesemia Hyponatremia Hypoxia Ischemic cardiomyopathy Moderate aortic stenosis Poisoning by calcium-channel blockers Rhabdomyolysis Suspected 2018-nCoV infection Symptomatic bradycardia Vomiting Surgical History History of mitral valve replacement with bioprosthetic valve 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 Family History Mother Stroke Denies family history of Diabetes CAD (coronary artery disease) Clotting disorder Dementia Social History Smoking and tobacco status: light tobacco smoker Quit status (tobacco): has quit using tobacco Year quit tobacco: 2016 Former quit date comment: smoked 1 pack per day x 36 years Alcohol intake: current Household members: spouse Housing: House 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 Vital Signs Temp 98.5 F 09/10/22 17:02 Pulse 51 L 09/10/22 22:25 Resp 20 H 09/10/22 22:25 BP 140/42 09/10/22 22:00 Pulse Ox 94 09/10/22 22:25 O2 Del Method 09/10/22 22:25 O2 Flow Rate 2.5 09/10/22 22:25 09/10/22 09/10/22 09/10/22 06:59 14:59 22:59 Intake Total 1100 / 1100 Balance 1100 / 1100 Weight last 48 hrs Weight 74.389 kg Physical Exam Const: COMMON NORMALS: patient oriented x3 HENMT: COMMON NORMALS: normocephalic and atraumatic HEAD & SCALP: normocephalic and atraumatic Resp: COMMON NORMALS: normal respiratory effort, No retractions, No use of accessory muscles and clear to auscultation bilaterally EFFORT & INSPECTION: Yes symmetric chest movement AUSCULTATION: clear to auscultation bilaterally Cardio: COMMON NORMALS: regular rate, regular rhythm, S1 normal heart sound present, S2 normal heart sound present, No gallops present (Cardio), No murmurs present (Cardio), No rub (Cardio) and Peripheral pulses 2+ throughout RATE: regular rate RHYTHM: regular rhythm HEART SOUNDS: S1 normal heart sound present and S2 normal heart sound present PERIPHERAL PULSES: Peripheral pulses 2+ throughout GI: COMMON NORMALS: Normal to inspection, nondistended, normoactive bowel sounds present, Soft to palpation, non-tender, No hepatosplenomegaly present and no masses AUSCULTATION: Yes normoactive bowel sounds PALPATION: Yes Soft to palpation and Yes No hepatosplenomegaly present RECTAL EXAM: Yes deferred : COMMON NORMALS: Yes no CVA tenderness BLADDER/KIDNEY EXAM: Yes no CVA tenderness Back/Pelvis: COMMON NORMALS: no CVA tenderness Extremity: COMMON NORMALS: no clubbing, cyanosis or edema and no pedal edema Neuro: COMMON NORMALS: patient oriented x3 Urinary Catheter Management: Ortiz: Cath Placed During This Visit: yes Urinary Catheter Date of Insertion: 09/10/22 Urinary Catheter Time of Insertion: 19:30 Data 09/10/22 17:41 09/10/22 17:41 Micro: Microbiology 09/10/22 18:25 Blood Culture - Preliminary Blood SPECIMEN COLLECTED 09/10/22 18:35 Blood Culture - Preliminary Blood SPECIMEN COLLECTED A&P Assessment and plan (1) Atrial fibrillation: (2) COPD (chronic obstructive pulmonary disease): (3) Aortic stenosis: (4) HFrEF (heart failure with reduced ejection fraction): (5) Acute hyperkalemia: (6) Pneumonia: (7) Acute renal failure: (8) Acute bacterial conjunctivitis of left eye: (9) Diarrhea: (10) Diabetes mellitus: (11) HTN (hypertension): (12) NSTEMI (non-ST elevated myocardial infarction): (13) Sepsis: Plan 77 year old male with PMH of ?COPD, atrial fibrillation, coronary artery disease, diabetes mellitus, hypertension, ischemic cardiomyopathy, moderate aortic stenosis, patient likely has underlying sick sinus syndrome, was according to patient he does have episodes of bradycardia event at home, came in today with chief complaint of lower abdominal pain as well as diarrhea going on for the last 3 days. Assessment: Acute renal failure: Possibly prerenal: Patient is complaining of diarrhea, is on lisinopril as well Lasix at home. Baseline serum creatinine is around 1-1.4. CT abdomen and pelvis has failed to show any obstructive uropathy Follow renal ultrasound Random urine sodium Random urine creatinine Random urine protein FENA Random UPCR Patient has received IV fluid bolus Monitor and output charting Ortiz catheter in place Avoid nephrotoxic's Monitor BMP every 4 hours Renal on board Sepsis: Patient meets sepsis criteria, significant leukocytosis, elevated lactic acid, diarrhea, pneumonia, acute kidney injury. Follow blood culture, urine culture Currently empirically started on Vanco and Zosyn Acute hyperkalemia: Has received hyperkalemia cocktail (dextrose insulin, calcium gluconate) Monitor serum potassium every 4H Telemetry monitoring Diarrhea: Follow stool C. difficile PCR and other stool studies. Ensure adequate hydration History of COPD: Continue DuoNebs, home inhaler, supplemental oxygen as needed H/OHFrEF : Currently compensated Most recent 2D echo done in May results reviewed: Severe hypokinesia of the mid and apical septum and inferior wall segments.? Left ventricular ejection fraction around 45%.?Thickened mitral valve. Moderate mitral annular calcification. ?Thickened aortic valve. History of atrial fibrillation: Currently heart rate is well controlled Hold Cardizem, hold Eliquis for now, in view of any procedure. Possible placement of dialysis catheter. Can be resumed later at appropriate stage. History of diabetes: LDSSI Monitor fingerstick glucose CODE STATUS: Full code DVT prophylaxis: On subcu heparin Attestations Medical Necessity Statement*: Patient is to be in hospital for management of acute renal failure. Anticipate length of stay greater than 2 midnights Time Spent in Patient Care: Greater than 35 minutes (>than 50% of time spent in counselling and/or direct pt care on unit) . Critical Care Time: The high probability of a clinically significant, sudden or life threatening deterioration of the patient's [] system(s) required my full and direct attention, intervention and personal management. The critical care time is as shown. This time is in addition to time spent performing any reported procedures but includes the following: [x] Data and vital sign review and interpretation [x] Patient assessment, examination and intervention [x] Documentation [x] Medication orders and management Critical Care Time (min): 60 Coding Level of Care Code Critical Care >/= 30 minutes Diagnoses Atrial fibrillation I48.91 COPD (chronic obstructive pulmonary disease) J44.9 Aortic stenosis I35.0 HFrEF (heart failure with reduced ejection fraction) I50.20 Acute hyperkalemia E87.5 Pneumonia J18.9 Acute renal failure N17.9 Acute bacterial conjunctivitis of left eye H10.32 Diarrhea R19.7 Diabetes mellitus E11.9 HTN (hypertension) I10 NSTEMI (non-ST elevated myocardial infarction) I21.4 Sepsis A41.9
--- NOTE | 2022-09-10 23:29 | ECG_ITS ---
[facility] Test Date: 2022-09-11 Pat Name: Anuj Irving Department: Room: [facility] Gender: Male Food Order Expediter: : 1945 Requested By: Cornell Hernandez Order Number: [id number] Dolly MD: Miracle Cash M.D. Measurements Intervals [place] Rate: 58 P: 0 [place]: 0 QRS: 34 QRSD: 141 T: 114 QT: 451 QTc: 446 Interpretive Statements POSSIBLE JUNCTIONAL RHYTHM INTRAVENTRICULAR CONDUCTION DELAY [130+ ms QRS DURATION] Compared to ECG 09/10/2022 19:29:13 Intraventricular conduction delay now present Sinus bradycardia no longer present Myocardial infarct finding no longer present T-wave abnormality no longer present Electronically Signed On 09-11-2022 23:22:53 LITIGATION ATTORNEY by Miracle Cash M.D. [id number]
[2022-09-11] VITALS (32 sets, daily range): BP systolic 111–146; BP diastolic 30–70; PULSE 38–102; RESP 12–27; TEMP 36.6–36.8; O2SAT 83–100
[2022-09-11] MEDS: heparin 5,000 unit/mL INJ 1 mL 5000 UNIT SUBCUT ×3 (00:04→23:21)
[2022-09-11 00:11] LABS: Anion Gap 31.5 (5-19); Blood Urea Nitrogen 54 mg/dL (8-23); Calcium 9.2 mg/dL (8.5-10.5); Carbon Dioxide 17 mmol/L (22-29); Chloride 88 mmol/L (98-107); Glucose 403 mg/dL (65-115); Osmolality Calculated 304 mOsm/kg (285-295); Potassium 5.5 mmol/L (3.5-5.1); Sodium 131 mmol/L (136-145)
[2022-09-11 00:13] LABS: Troponin 5 6HR Delta -14.2 ng/L (0-12)
[2022-09-11 00:14] LABS: Creatinine Clr Calc Pharmacy 9.7991
[2022-09-11 00:15] LABS: Troponin 5 6HR 105.8 ng/L (0-15)
[2022-09-11 00:57] LABS: Creatinine Urine, Random 128 mg/dL (39-259)
[2022-09-11] MEDS: insulin lispro 100 unit/1 mL 10 UNIT SUBCUT (01:08)
[2022-09-11] MEDS: sodium bicarbonate 650 mg Tablet 1300 MG PO ×4 (01:08→20:50)
[2022-09-11] MEDS: insulin glargine 100 units/1 mL 20 UNIT SUBCUT ×2 (01:08→20:50)
[2022-09-11] MEDS: lactated ringers 1,000 ML 100 ML IV ×3 (01:09→23:20)
[2022-09-11] MEDS: piperacillin-tazobactam 3.375 GM in sodium chloride 0.9% (plus) 50 ML IV ×3 (01:09→20:49)
[2022-09-11 02:12] LABS: ABG PCO2 31.7 mmHg (35-45); ABG PH Result 7.31 (7.35-7.45); Alveolar-Arterial Oxygen Gradi 3.9 mmHg (5-10); Arterial Blood Gas Hematocrit 28.6 % (42-52); Base Excess ABG -9.2 mmol/L (-2.0-2.0); Blood Gas Allen Test Pos; Blood Gas LPM 2.5 %; Blood Gas Operator Identificat JB; Blood Gas Sample Site Radial, right; Blood Gas Sample Type Arterial; Carboxyhemoglobin 2.1 %THgb (0.4-20.1); HGB O2 Sat 93.7 % (95-100); Ionized Calcium Level - ABG 1.2 mmol/L (1.1-1.4); Methemoglobin 0.3 % (0.4-1.5); Oxygen Device NC; Oxygen Saturation ABG 95.9; PO2 ABG 80.3 mmHg (80.0-100.0); Potassium Level - ABG 5.4 mmol/L (3.5-5.0); Total Hemoglobin 9.3 g/dL (14-18)
[2022-09-11 03:23] LABS: Hematocrit 28.9 % (42.0-52.0); Hemoglobin 8.8 g/dL (11.7-16.6); Lymphocytes # 0.4 10^3/uL (0.8-4.8); Lymphocytes % 1.7 %; Mean Corpuscular HGB Conc 30.4 g/dL (30.0-36.0); Mean Corpuscular Hemoglobin 29.3 pg (28.0-34.0); Mean Corpuscular Volume 96.3 fl (80-94); Mean Platelet Volume 12.7 fL (7.4-10.4); Monocytes # 1.5 10^3/uL (0.2-0.9); Monocytes % 6.2 %; Neutrophils # 21.68 10^3/uL (1.8-7.7); Neutrophils % 89.5 %; Nucleated Red Blood Cells % 0 %; Platelet Count 181 10^3/cmm (130-400); White Blood Count 24.2 10^3/uL (4.0-10.0)
[2022-09-11 03:31] LABS: INR 1.39 (0.8-1.2)
[2022-09-11 03:32] LABS: Partial Thromboplastin Time 35.4 SECONDS (23.9-36.7)
[2022-09-11 03:35] LABS: Anion Gap 26.7 (5-19); Blood Urea Nitrogen 55 mg/dL (8-23); Carbon Dioxide 19 mmol/L (22-29); Chloride 87 mmol/L (98-107); Glucose 438 mg/dL (65-115); Magnesium 2.7 mg/dL (1.7-2.3); Osmolality Calculated 298 mOsm/kg (285-295); Phosphorus 2.9 mg/dL (2.5-4.5); Potassium 5.7 mmol/L (3.5-5.1); Sodium 127 mmol/L (136-145)
[2022-09-11 03:43] LABS: Procalcitonin 6.16 ng/mL (0-0.5)
[2022-09-11] MEDS: sodium polystyrene sulfonate 15 gm/60 mL Btl PO (04:24)
--- NOTE | 2022-09-11 06:05 | ECG_ITS ---
[facility] Test Date: 2022-09-11 Pat Name: Anuj Irving Department: Room: [facility] Gender: Male Psychological Operations Officer: : 1945 Requested By: Yung Morrison Order Number: [id number] Dolyl MD: Miracle Cash M.D. Measurements Intervals [place] Rate: 41 P: 0 AL: 0 QRS: 81 QRSD: 118 T: 118 QT: 521 QTc: 430 Interpretive Statements SUPRAVENTRICULAR BRADYCARDIA ANTEROSEPTAL MYOCARDIAL INFARCTION , PROBABLY RECENT [40+ ms Q WAVE IN V1-V4] Compared to ECG 09/11/2022 00:24:34 Myocardial infarct finding now present Intraventricular conduction delay no longer present Electronically Signed On 09-11-2022 16:47:51 MEDIA SUPERVISOR by Miracle Cash M.D. [id number]
[2022-09-11 06:25] LABS: Urine Random Sodium 64 mmol/L
[2022-09-11 06:40] LABS: Urine Protein Random 273 mg/dL
[2022-09-11] MEDS: budesonide 0.5 mg/2 mL Neb INHALATION ×2 (07:50→20:03)
[2022-09-11] MEDS: ipratropium-albuterol 3 mL Neb INHALATION ×4 (07:50→20:03)
[2022-09-11 08:04] LABS: ABG PCO2 30.1 mmHg (35-45); ABG PH Result 7.49 (7.35-7.45); Arterial Blood Gas Hematocrit 24.7 % (42-52); Base Excess ABG -0.5 mmol/L (-2.0-2.0); Blood Gas Allen Test Pos; Blood Gas Operator Identificat CAK; Blood Gas Sample Site Radial, right; Blood Gas Sample Type Arterial; Carboxyhemoglobin 1.9 %THgb (0.4-20.1); HCO3 ABG 22.6 mmol/L (22-26); HGB O2 Sat 97.4 % (95-100); Ionized Calcium Level - ABG 1.1 mmol/L (1.1-1.4); Methemoglobin 0.3 % (0.4-1.5); Oxygen Device NC; Oxygen Saturation ABG 99.5; PO2 ABG 97.2 mmHg (80.0-100.0); Potassium Level - ABG 5.1 mmol/L (3.5-5.0); Total Hemoglobin 8.1 g/dL (14-18)
[2022-09-11 08:05] LABS: Blood Urea Nitrogen 56 mg/dL (8-23); Calcium 8.8 mg/dL (8.5-10.5); Carbon Dioxide 20 mmol/L (22-29); Chloride 92 mmol/L (98-107); Glucose 354 mg/dL (65-115); Osmolality Calculated 304 mOsm/kg (285-295); Sodium 132 mmol/L (136-145)
[2022-09-11 08:06] LABS: Potassium 5.4 mmol/L (3.5-5.1)
[2022-09-11 08:08] LABS: Anion Gap 25.4 (5-19)
[2022-09-11] MEDS: insulin lispro 100 unit/1 mL SUBCUT ×3 (08:47→18:22)
[2022-09-11] MEDS: pantoprazole DR 40 mg Tablet PO ×2 (08:47→18:20)
[2022-09-11 08:56] LABS: Glucose Point of Care 333 mg/dL (70-110)
[2022-09-11] MEDS: citric acid-sodium citrate 30 mL UDC 60 ML PO ×2 (09:19→18:20)
--- NOTE | 2022-09-11 10:03 | PM.CONSULT ---
Providers/Reason For Consult Consulting Physician/Specialty*: [facility]/Nephrology Reason for Consult*: NADER Attending Physician: Isatu Gray MD Primary Care Provider: Paola Moore MD History of Present Illness History of Present Illness Anuj Irving is a 77 year old male Patient is a 77-year-old male with past medical history of atrial fibrillation, COPD, coronary artery disease, diabetes, diabetes Beatties, hypertension, ischemic cardiomyopathy, moderate aortic stenosis, presented to the emergency department with abdominal pain and diarrhea going on for [address] chest abdomen pelvis without contrast was done in the ER that showed left-sided consolidation and findings suggestive of gastroenteritis. EKG showed A-fib. Patient's creatinine was 1.2 in July, now he presented with a creatinine of 5.2 with a serum potassium initially of 7.6. Also has elevated lactate of 2.3. After patient received medical management in the ER for hyperkalemia his potassium this morning is 5.4 creatinine is stable. He has poor urine output about 50 cc in the last 24 hours. Currently he denies any complaints. Currently receiving LR at 75 cc an hour. Review of Systems Narrative: Other ros NEGATIVE Medications/Allergies Home Medications Medication Instructions Recorded Confirmed Last Taken Type albuterol sulfate 90 mcg/actuation 2 puff inhalation Q4H PRN 07/12/21 09/10/22 Unknown History aerosol inhaler Shortness Of Breath apixaban 5 mg tablet (Eliquis) 5 mg PO BID 07/12/21 09/10/22 09/10/22 History atorvastatin 80 mg tablet 80 mg PO QPM 07/12/21 09/10/22 09/09/22 History cholecalciferol (vitamin D3) 25 25 mcg PO DAILY 07/12/21 09/10/22 09/09/22 History mcg (1,000 unit) capsule (Vitamin D3) docusate sodium 100 mg capsule 100 - 200 mg PO DAILY PRN 07/12/21 09/10/22 06/20/22 History Constipation insulin glargine 100 unit/mL (3 15 unit SUBCUT BID@0630,1830 07/12/21 09/10/22 09/10/22 History mL) subcutaneous pen (Lantus Solostar U-100 Insulin) lisinopril 10 mg tablet 5 mg PO DAILY 07/12/21 09/10/22 09/10/22 History metformin 1,000 mg tablet 1,000 mg PO BID 07/12/21 09/10/22 09/10/22 History multivitamin 1 tab PO DAILY 07/12/21 09/10/22 09/10/22 History omeprazole 40 mg capsule,delayed 40 mg PO BID 07/12/21 09/10/22 09/10/22 History release carboxymethylcellulose sodium 1 % 1 drp ophthalmic (eye) BID PRN Dry 11/26/21 09/10/22 Unknown History eye liquid gel drops (Refresh Eye(S) Liquigel) ferrous gluconate 324 mg (38 mg 324 mg PO BID 11/26/21 09/10/22 09/10/22 History iron) tablet fluticasone 100 mcg-salmeterol 50 1 inh inhalation BID 11/26/21 09/10/22 09/09/22 History mcg/dose blistr powdr for inhalation (Advair Diskus) furosemide 40 mg tablet (Lasix) 40 mg PO QAM 11/26/21 09/10/22 09/10/22 History glipizide 10 mg tablet 20 mg PO BID 11/26/21 09/10/22 09/10/22 History ipratropium 20 mcg-albuterol 100 1 puff inhalation Q6H PRN 11/26/21 09/10/22 Unknown History mcg/actuation mist for inhalation Shortness Of Breath prednisolone acetate 1 % eye 1 drp ophthalmic (eye) BID 11/26/21 09/10/22 09/10/22 History drops,suspension diltiazem HCl 120 mg 120 mg PO DAILY 30 days #30 caps 06/22/22 09/10/22 09/09/22 Rx capsule,extended release 24 hr albuterol sulfate 90 mcg/actuation 2 inh inhalation Q4H PRN shortness 08/16/22 09/10/22 Unknown Rx aerosol inhaler of breath or wheezing #8.5 grams Allergies Allergy/AdvReac Type Severity Reaction Status Date / Time No Known Allergies Allergy Verified 06/29/22 09:24 Current Medications Generic Name Dose Route Start Last Admin Trade Name Freq PRN Reason Stop Dose Admin Albuterol Sulfate 2.5 mg 09/11/22 08:00 09/11/22 07:50 Albuterol 2.5 Mg/3 Ml Neb INHALATION Not Given QID.RESPIRATORY SHIELA Albuterol/Ipratropium 3 ml 09/11/22 08:00 09/11/22 07:50 Ipratropium-Albuterol 3 Ml Neb INHALATION 3 ml QID.RESPIRATORY SHIELA Administration Budesonide 0.5 mg 09/11/22 08:00 09/11/22 07:50 Budesonide 0.5 Mg/2 Ml Neb INHALATION 0.5 mg BID.RESPIRATORY SHIELA Administration Citric Acid/Sodium Citrate 60 ml 09/11/22 09:00 09/11/22 09:19 Citric Acid-Sodium Citrate 30 Ml Udc PO 09/13/22 18:00 60 ml BID SHIELA Administration Heparin Sodium (Porcine) 5,000 unit 09/10/22 23:00 09/11/22 00:04 Heparin 5,000 Unit/Ml Inj 1 Ml SUBCUT 5,000 unit Q12H SHIELA Administration Piperacillin Sod/Tazobactam 50 mls @ 12.5 mls/hr 09/11/22 01:00 09/11/22 08:45 Sod 3.375 gm/ Sodium Chloride IV 12.5 mls/hr Q8H SHIELA Administration Protocol Lactated Ringer's 1,000 mls @ 100 mls/hr 09/11/22 01:00 09/11/22 01:09 Lactated Ringers IV 100 mls/hr .Q10H SHIELA Administration Insulin Glargine 20 unit 09/11/22 00:25 09/11/22 01:08 Insulin Glargine 100 Units/1 Ml SUBCUT 20 unit BEDTIME SHIELA Administration Insulin Human Lispro 0 unit 09/11/22 08:00 09/11/22 08:47 Insulin Lispro 100 Unit/1 Ml SUBCUT 10 unit TIDWM SHIELA Administration Protocol Pantoprazole Sodium 40 mg 09/11/22 09:00 09/11/22 08:[address] 40 Mg Tablet PO 40 mg BID SHIELA Administration Sodium Bicarbonate 1,300 mg 09/11/22 00:20 09/11/22 08:47 Sodium Bicarbonate 650 Mg Tablet PO 1,300 mg TID SHIELA Administration PFSH Acute PFSH: Medical History (Updated 09/10/22 @ 23:21 by Yung Morrison MD) Abdominal pain Acute exacerbation of chronic obstructive pulmonary disease (COPD) Acute kidney injury Aortic stenosis Atrial fibrillation Chronic kidney failure Congestive heart failure (CHF) COPD (chronic obstructive pulmonary disease) Coronary artery disease Diabetes mellitus Digoxin overdose HTN (hypertension) Hyperkalemia Hypomagnesemia Hyponatremia Hypoxia Ischemic cardiomyopathy Moderate aortic stenosis Poisoning by calcium-channel blockers Rhabdomyolysis Suspected 2018-nCoV infection Symptomatic bradycardia Vomiting Surgical History History of mitral valve replacement with bioprosthetic valve 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 Family History Mother Stroke Denies family history of Diabetes CAD (coronary artery disease) Clotting disorder Dementia Social History Smoking and tobacco status: light tobacco smoker Quit status (tobacco): has quit using tobacco Year quit tobacco: 2016 Former quit date comment: smoked 1 pack per day x 36 years Alcohol intake: current Household members: spouse Housing: House 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 Vital Signs Temp 98.2 F 09/11/22 04:00 Pulse 59 L 09/11/22 09:00 Resp 20 H 09/11/22 09:00 BP 129/51 09/11/22 09:00 Pulse Ox 93 09/11/22 09:00 O2 Del Method 09/11/22 07:45 O2 Flow Rate 2 09/11/22 07:45 09/10/22 09/11/22 09/11/22 22:59 06:59 14:59 Intake Total 1100 / 1100 1379.65 / 2479.65 480 / 480 Output Total 50 / 50 Balance 1100 / 1100 1329.65 / 2429.65 480 / 480 Weight last 48 hrs Weight 66.224 kg Weight 74.389 kg Physical Exam Narrative: PT IS WAKE ALERT , NO DISTRESS DRY MUCOUS MEMEBRANES NO EDEMA Urinary Catheter Management: Ortiz: Cath Placed During This Visit: yes Reason for Continuing Indwelling Catheter: Accurate Measurement of Urinary Output in Critically Ill Patients Urinary Catheter Date of Insertion: 09/10/22 Urinary Catheter Time of Insertion: 19:30 Data 09/11/22 02:38 09/11/22 07:32 Micro: Microbiology 09/10/22 19:47 Legionella Urinary Antigen - Final Urine Catheterized 09/10/22 18:25 Blood Culture - Preliminary Blood SPECIMEN COLLECTED 02/16/23 18:35 Blood Culture - Preliminary Blood SPECIMEN COLLECTED A&P Assessment and plan (1) Acute renal failure: Plan 1. Acute on chronic kidney disease: Creatinine baseline of 1.2 a month ago, now presents with NADER secondary to prerenal/likely has developed ATN. Continue IV fluids, no acute indication for dialysis, continue to monitor renal function closely. Avoid nephrotoxins and IV contrast studies. Holding RAÚL inhibitors, diuretics and metformin 2. Metabolic acidosis: We will order Bicitra and monitor 3. Severe hyperkalemia: Status post med management,, potassium 5.4 this morning, bicarbonate should help, we will also check with pharmacy if Lokelma is available. 4. Acute on chronic respiratory failure: History of COPD and CHF, hold diuretics and RAÚL inhibitor's temporarily 5. A-fib: Rate controlled 6. History of CHF Patient evaluated using audiovisual cart. Time spent 45 minutes. Consult Attestations Medical Necessity Statement: PER PRIMARY Coding Level of Care Code Acute Code for [facility] Diagnoses Acute renal failure N17.9
--- NOTE | 2022-09-11 11:02 | PC.CHAP ---
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 monitoring analyst visit [] Patient/Family/Request visit [] Outpatient visit [] Follow-up visit [] Physician referral [] Code/Alert [x] Routine visit [] Staff referral [] Actively dying [] Patient sleeping []x Family support [] [] Out of room [] Palliative care [] [] Receiving care in room [] Pre-surgical visit [] Trauma [] Long length of stay [] ICU visit [] Other: Relational/Emotional Strength [x] Patient feels connected with others/family/visitors/staff [] Distress [] Loneliness/isolation [] Abandonment Spirituality of Patient [x] Person of Laxmi [] Attends Quaker of their Laxmi []x Believes in Prayer [] Reads Bible or Bahai materials [] There are Spiritual issues to be addressed Rod Mill Operator Interventions []x Prayer [x] Active listening []x Non-anxious presence [] Spiritual/emotional support [] Crisis/trauma care [] Spiritual counseling [] Bereavement support [] Provided bereavement packet [] Provided Bible/devotional materials [] Provided toy/stuffed animal, coloring book to patient or family member [] Provided Communion [] Anointing/[place] [] Salvation [x] Completed spiritual assessment [] Other: Impact on Illness or Injury [] Angry [] Fearful [] Anxious [] Often cries [] Exhaustion [] Unable to work [] Unable to attend buddhism [] Unable to walk/stand [] Unable to read [] Unable to drive [] Unable to eat/drink [] Unable to sleep [] Unable to be with family [] Patient intubated [] Other: Summary Time spent with patient 10 min
[2022-09-11 12:07] LABS: Glucose Point of Care 295 mg/dL (70-110)
--- NOTE | 2022-09-11 12:07 | ECG_ITS ---
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 Measurements Intervals Gonzales Rate: 45 P: 0 TN: 0 QRS: 77 QRSD: 118 T: 115 QT: 518 QTc: 448 Interpretive Statements Atrial fibrillation with a slow ventricular response rate of 45 bpm LOW QRS VOLTAGE IN EXTREMITY LEADS [QRS DEFLECTION < 0.5 mV IN LIMB LEADS] POSSIBLE ANTERIOR MYOCARDIAL INFARCTION , OF INDETERMINATE AGE [30 ms Q WAVE IN V3/V4, OR R < 0.2 mV IN V4] CRITICAL TEST RESULT Compared to ECG 09/11/2022 06:13:36 Low QRS voltage now present Myocardial infarct finding still present Electronically Signed On 09-12-2022 19:28:44 DIRECTOR OF OPERATIONS HOME HEALTH by Ariana Schwartz M.D. [id number]
--- NOTE | 2022-09-11 12:38 | PM.PN ---
Subjective Subjective: Seen this morning. Patient was having bouts of bradycardia on telemetry down to 40s. It was this morning around 1030 he had another bradycardic episode. He is sleeping at this time. He does have a history of symptomatic bradycardia in the past. Recently in May he was in the hospital for digoxin toxicity with bradycardia for which she required DigiFab antibodies. His digoxin was stopped. His Cardizem dose was reduced from 1 80-1 20. Potassium was also elevated this morning at 5.4. When seen he states he has no symptoms at this time denies any chest pain, shortness of breath, abdominal pain. He states the diarrhea started a few days ago and he does not know what the trigger for it was. He did not eat out at a restaurant. Denies recent antibiotic use. Vitals/I&O/Wt Last Vital Signs Temp 98.2 F 09/11/22 04:00 Pulse 45 L 09/11/22 12:26 Resp 16 09/11/22 12:00 BP 116/52 09/11/22 12:00 Pulse Ox 94 09/11/22 12:00 O2 Del Method 09/11/22 12:00 O2 Flow Rate 2 09/11/22 12:00 09/10/22 09/11/22 09/11/22 22:59 06:59 14:59 Intake Total 1100 / 1100 1379.65 / 2479.65 1480 / 1480 Output Total 50 / 50 Balance 1100 / 1100 1329.65 / 2429.65 1480 / 1480 Weight last 48 hrs Weight 66.224 kg Weight 74.389 kg Physical Exam Narrative: General: Alert oriented x3, patient seen sitting up in bed on 2 L nasal cannula appearing comfortable.? No acute respiratory distress. HEENT: Normocephalic, atraumatic, EOMI, breathing normally. Cardio: Bradycardic, normal S1-S2 Respiratory: Good bilateral air entry, no wheezes no rhonchi appreciated GI: Abdomen soft, nontender, nondistended, bowel sounds + Behavior: Appropriate and cooperative Extremities: No edema, no cyanosis ? Urinary Catheter Management: Ortiz: Cath Placed During This Visit: yes Reason for Continuing Indwelling Catheter: Accurate Measurement of Urinary Output in Critically Ill Patients Urinary Catheter Date of Insertion: 09/10/22 Urinary Catheter Time of Insertion: 19:30 Data 09/11/22 02:38 09/11/22 07:32 Micro: Microbiology 09/10/22 19:47 Bacterial Antigens - Final Urine Kidney 09/10/22 19:47 Legionella Urinary Antigen - Final Urine Catheterized 09/10/22 18:25 Blood Culture - Preliminary Blood SPECIMEN COLLECTED 09/10/22 18:35 Blood Culture - Preliminary Blood SPECIMEN COLLECTED A&P Assessment and plan (1) Sepsis: (2) Diarrhea: (3) Diabetes mellitus: (4) HTN (hypertension): (5) Acute renal failure: (6) HFrEF (heart failure with reduced ejection fraction): (7) Aortic stenosis: (8) COPD (chronic obstructive pulmonary disease): (9) Pneumonia: (10) NADER (acute kidney injury): (11) Acute hyperkalemia: (12) Atrial fibrillation: (13) Bradycardia: Plan #Sepsis secondary to diarrhea, rule out C. difficile. #Hyperkalemia secondary to NADER #Pneumonia #Acute kidney injury, unsure if underlying CKD, baseline normal to 1.1. Presented with creatinine 6.1. Patient is oliguric. #Hypomagnesemia #Gastroenteritis #Chronic congestive heart failure with reduced ejection fraction 35 to 40% #Mitral valve replacement, bioprosthetic #Mild aortic valve stenosis #Diabetes mellitus, insulin-dependent #COPD #History of CABG x3 #Bradycardia, most likely sick sinus syndrome -Baseline creatinine 1-1.4. CT abdomen pelvis did not show any obstructive uropathy ? Follow renal ultrasound ? Urine sodium urine creatinine urine protein Francia pending at this time ? Avoid nephrotoxic's ? Renal on board. Plan for possibly Lokelma and Bicitra today. ? Hold RAÚL inhibitor, metformin ? Continue on vancomycin and Zosyn at this time. Follow blood culture, urine culture ? Check C. difficile and other stool studies ova parasite screen, stool culture bacterial panel ? Check potassium every 4-6 hours. Did receive x-ray insulin calcium gluconate in the ER. ? We will hold off on Kayexalate due to diarrhea. We will see if we have Lokelma available. ? DuoNeb every 4 hour as needed, supplemental oxygen as needed ? Heart failure seems to be compensated at this time. ? Heart rate is well controlled and at times bradycardic. Hold Cardizem for now. Hold Eliquis for now in case of any procedure. ? Consult cardiology for bradycardia/sick sinus syndrome. Question of whether pacemaker would be appropriate at this point. Discussed with Dr. Schwartz. He will see the patient in consultation. Diet: Renal diet, low potassium GI prophylaxis: On omeprazole 40 twice daily at home Full code Continue subcutaneous heparin twice daily Attestations Medical Necessity Statement*: Will cross greater than 2 midnight stay for management of acute kidney injury, sepsis secondary to diarrhea versus pneumonia, bradycardia. Other Coding Information Focused coding review requested Diagnoses Sepsis A41.9 Diarrhea R19.7 Diabetes mellitus E11.9 HTN (hypertension) I10 Acute renal failure N17.9 HFrEF (heart failure with reduced ejection fraction) I50.20 Aortic stenosis I35.0 COPD (chronic obstructive pulmonary disease) J44.9 Pneumonia J18.9 NADER (acute kidney injury) N17.9 Acute hyperkalemia E87.5 Atrial fibrillation I48.91 Bradycardia R00.1
--- NOTE | 2022-09-11 14:31 | PM.CONSULT ---
Providers/Reason For Consult Consulting Physician/Specialty*: ALICJA Schwartz MD/cardiology Reason for Consult*: Patient to bradycardia and multiple cardiac problem Requesting Physician: Dr. Gray Attending Physician: Isatu Gray MD Primary Care Provider: Paola Moore MD History of Present Illness History of Present Illness Anuj Irving is a 77 year old male with a history of atherosclerotic heart disease, atrial fibrillation and cardiomyopathy, was brought to the emergency room for progressive weakness and shortness of breath. He was having diarrhea for 3 days or so prior to the hospital admission. Patient was found to be in acute renal failure with hyperkalemia. The electrolyte abnormalities is being corrected. His potassium is almost back to the normal range now. He was found to have heart rate in the upper 30s and low 40s for a while. Cardiology consult is requested for further cardiac evaluation recommendations. This patient has a history of coronary artery disease and had three-vessel coronary bypass surgery in 2009, ischemic cardiomyopathy with an ejection fraction of 45% by echocardiogram in May 2022, history of chronic atrial fibrillation , occasional bradycardia, COPD with intermittent exacerbation, chronic renal insufficiency, type 2 diabetes, dyslipidemia and multiple other medical problems. In the past, he had a hospital admission for dig toxicity complicated with bradycardia. The beta-olivia is also causes bradycardia. He denies any chest pain or chest tightness. No shortness of breath.\ He was getting Kyoxalate. The potassium level was around 7.4 at the time of admission currently it is at 5.4. Patient denies any chest pain or chest tightness. No unusual shortness of breath. He is a very poor historian. No fever, chills or cough. Review of Systems Narrative: GENERAL: The patient is alert and oriented times three. Not in any acute distress. HEENT: Mild pallor, no icterus or lymphadenopathy.Oral cavity: There are no mucous membrane lesions. NECK: Trachea appears to be central. No masses noted. No JVD or thyromegaly appreciated. RESPIRATORY: Chest is symmetrical. No intercostals muscle retraction or any accessory muscle activation. There is no chest wall tenderness. Breath sounds are heard bilaterally. No rales or rhonchi heard. No evidence of any consolidation. BREASTS: Deferred. HEART: The heart sounds are normal. No S3 or S4. No significant murmurs. No pericardial rub ABDOMEN: No vessel pulsations or distention. No tenderness. No organomegaly appreciated. Bowel sounds are normally heard. : Deferred. RECTAL: Deferred. LYMPHATIC: No lymphadenopathy noted in the neck. EXTREMITIES: No edema or cyanosis. No clubbing. MUSCULOSKELETAL: No acute joint deformities or swelling SKIN: There are no significant rashes or ecchymosis NEUROPSYCHIATRIC: The patient is alert and oriented x3. Appears to be in a good mood. No tremors or rigidity noted. Medications/Allergies Home Medications Medication Instructions Recorded Confirmed Last Taken Type albuterol sulfate 90 mcg/actuation 2 puff inhalation Q4H PRN 07/12/21 09/10/22 Unknown History aerosol inhaler Shortness Of Breath apixaban 5 mg tablet (Eliquis) 5 mg PO BID 07/12/21 09/10/22 09/10/22 History atorvastatin 80 mg tablet 80 mg PO QPM 07/12/21 09/10/22 09/09/22 History cholecalciferol (vitamin D3) 25 25 mcg PO DAILY 07/12/21 09/10/22 09/09/22 History mcg (1,000 unit) capsule (Vitamin D3) docusate sodium 100 mg capsule 100 - 200 mg PO DAILY PRN 07/12/21 09/10/22 06/20/22 History Constipation insulin glargine 100 unit/mL (3 15 unit SUBCUT BID@0630,1830 07/12/21 09/10/22 09/10/22 History mL) subcutaneous pen (Lantus Solostar U-100 Insulin) lisinopril 10 mg tablet 5 mg PO DAILY 07/12/21 09/10/22 09/10/22 History metformin 1,000 mg tablet 1,000 mg PO BID 07/12/21 09/10/22 09/10/22 History multivitamin 1 tab PO DAILY 07/12/21 09/10/22 09/10/22 History omeprazole 40 mg capsule,delayed 40 mg PO BID 07/12/21 09/10/22 09/10/22 History release carboxymethylcellulose sodium 1 % 1 drp ophthalmic (eye) BID PRN Dry 11/26/21 09/10/22 Unknown History eye liquid gel drops (Refresh Eye(S) Liquigel) ferrous gluconate 324 mg (38 mg 324 mg PO BID 11/26/21 09/10/22 09/10/22 History iron) tablet fluticasone 100 mcg-salmeterol 50 1 inh inhalation BID 11/26/21 09/10/22 09/09/22 History mcg/dose blistr powdr for inhalation (Advair Diskus) furosemide 40 mg tablet (Lasix) 40 mg PO QAM 11/26/21 09/10/22 09/10/22 History glipizide 10 mg tablet 20 mg PO BID 11/26/21 09/10/22 09/10/22 History ipratropium 20 mcg-albuterol 100 1 puff inhalation Q6H PRN 11/26/21 09/10/22 Unknown History mcg/actuation mist for inhalation Shortness Of Breath prednisolone acetate 1 % eye 1 drp ophthalmic (eye) BID 11/26/21 09/10/22 09/10/22 History drops,suspension diltiazem HCl 120 mg 120 mg PO DAILY 30 days #30 caps 06/22/22 09/10/22 09/09/22 Rx capsule,extended release 24 hr albuterol sulfate 90 mcg/actuation 2 inh inhalation Q4H PRN shortness 08/16/22 09/10/22 Unknown Rx aerosol inhaler of breath or wheezing #8.5 grams Allergies Allergy/AdvReac Type Severity Reaction Status Date / Time No Known Allergies Allergy Verified 06/29/22 09:24 Current Medications Generic Name Dose Route Start Last Admin Trade Name Freq PRN Reason Stop Dose Admin Albuterol Sulfate 2.5 mg 09/11/22 08:00 09/11/22 12:25 Albuterol 2.5 Mg/3 Ml Neb INHALATION Not Given QID.RESPIRATORY SHIELA Albuterol/Ipratropium 3 ml 09/11/22 08:00 09/11/22 12:22 Ipratropium-Albuterol 3 Ml Neb INHALATION 3 ml QID.RESPIRATORY SHIELA Administration Budesonide 0.5 mg 09/11/22 08:00 09/11/22 07:50 Budesonide 0.5 Mg/2 Ml Neb INHALATION 0.5 mg BID.RESPIRATORY SHIELA Administration Citric Acid/Sodium Citrate 60 ml 09/11/22 09:00 09/11/22 09:19 Citric Acid-Sodium Citrate 30 Ml Udc PO 09/13/22 18:00 60 ml BID SHIELA Administration Heparin Sodium (Porcine) 5,000 unit 09/10/22 23:00 09/11/22 11:58 Heparin 5,000 Unit/Ml Inj 1 Ml SUBCUT 5,000 unit Q12H SHIELA Administration Lactated Ringer's 1,000 mls @ 75 mls/hr 09/11/22 01:00 09/11/22 11:58 Lactated Ringers IV 100 mls/hr .[id number] SHIELA Administration Insulin Glargine 20 unit 09/11/22 00:25 09/11/22 01:08 Insulin Glargine 100 Units/1 Ml SUBCUT 20 unit BEDTIME SHIELA Administration Insulin Human Lispro 0 unit 09/11/22 08:00 09/11/22 11:59 Insulin Lispro 100 Unit/1 Ml SUBCUT 8 unit TIDWM SHIELA Administration Protocol Pantoprazole Sodium 40 mg 09/11/22 09:00 09/11/22 08:[address] 40 Mg Tablet PO 40 mg BID SHIELA Administration Sodium Bicarbonate 1,300 mg 09/11/22 00:20 09/11/22 08:47 Sodium Bicarbonate 650 Mg Tablet PO 1,300 mg TID SHIELA Administration PFSH Acute PFSH: Medical History Abdominal pain Acute exacerbation of chronic obstructive pulmonary disease (COPD) Acute kidney injury Aortic stenosis Atrial fibrillation Chronic kidney failure Congestive heart failure (CHF) COPD (chronic obstructive pulmonary disease) Coronary artery disease Diabetes mellitus Digoxin overdose HTN (hypertension) Hyperkalemia Hypomagnesemia Hyponatremia Hypoxia Ischemic cardiomyopathy Moderate aortic stenosis Poisoning by calcium-channel blockers Rhabdomyolysis Suspected 2019-nCoV infection Symptomatic bradycardia Vomiting Surgical History History of mitral valve replacement with bioprosthetic valve 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 Family History Mother Stroke Denies family history of Diabetes CAD (coronary artery disease) Clotting disorder Dementia Social History Smoking and tobacco status: light tobacco smoker Quit status (tobacco): has quit using tobacco Year quit tobacco: 2016 Former quit date comment: smoked 1 pack per day x 36 years Alcohol intake: current Household members: spouse Housing: House 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 Not in any acute distress. [] HEENT: Moderate pallor. No icterus or lymphadenopathy.Oral cavity: There are no mucous membrane lesions. NECK: Trachea appears to be central. No masses noted. No JVD or thyromegaly appreciated. RESPIRATORY: Chest is symmetrical. No intercostals muscle retraction or any accessory muscle activation. There is no chest wall tenderness. Breath sounds are heard bilaterally. No rales or rhonchi heard. No evidence of any consolidation. [] BREASTS: Deferred. [] HEART: The heart sounds are normal. No S3 or S4. Ejection systolic murmur grade 3 or 6 in the aortic area. No diastolic murmurs. No pericardial rub ABDOMEN: No vessel pulsations or distention. No tenderness. No organomegaly appreciated. Bowel sounds are normally heard. [] : Deferred. [] RECTAL: Deferred. [] LYMPHATIC: No lymphadenopathy noted in the neck. EXTREMITIES: No edema or cyanosis. No clubbing. MUSCULOSKELETAL: No acute joint deformities or swelling SKIN: There are no significant rashes or ecchymosis NEUROPSYCHIATRIC: Alert and oriented to place and person. No focal motor deficits. Urinary Catheter Management: Ortiz: Cath Placed During This Visit: yes Reason for Continuing Indwelling Catheter: Accurate Measurement of Urinary Output in Critically Ill Patients Urinary Catheter Date of Insertion: 09/10/22 Urinary Catheter Time of Insertion: 19:30 Data 09/11/22 02:38 09/11/22 07:32 Other Labs: Laboratory Last Values WBC 24.2 10^3/uL (4.0-10.0) H 09/11/22 02:38 RBC 3.00 10^6/uL (4.1-5.3) L 09/11/22 02:38 Hgb 8.8 g/dL (11.7-16.6) L 09/11/22 02:38 Hct 28.9 % (42.0-52.0) L 09/11/22 02:38 MCV 96.3 fl (80-94) H 09/11/22 02:38 MCH 29.3 pg (28.0-34.0) 09/11/22 02:38 MCHC 30.4 g/dL (30.0-36.0) 09/11/22 02:38 RDW 17.0 % (12.1-15.1) H 09/11/22 02:38 Plt Count 181 10^3/cmm (130-400) 09/11/22 02:38 MPV 12.7 fL (7.4-10.4) H 09/11/22 02:38 Neut % (Auto) 89.5 % 09/11/22 02:38 Lymph % (Auto) 1.7 % 09/11/22 02:38 Elliott % (Auto) 6.2 % 09/11/22 02:38 Eos % (Auto) 0.0 % 09/11/22 02:38 Baso % (Auto) 0.0 % 09/11/22 02:38 Neut # (Auto) 21.68 10^3/uL (1.8-7.7) H 09/11/22 02:38 Lymph # (Auto) 0.4 10^3/uL (0.8-4.8) L 09/11/22 02:38 Elliott # (Auto) 1.5 10^3/uL (0.2-0.9) H 09/11/22 02:38 Eos # (Auto) 0.0 10^3/uL (0.0-0.8) 09/11/22 02:38 Baso # (Auto) 0.0 10^3/uL (0.0-0.1) 09/11/22 02:38 Nucleated RBC % (auto) 0 % 09/11/22 02:38 Nucleated RBCs # 0.0 /100WBC 09/11/22 02:38 PT 17.50 SECONDS (12.1-14.9) H 09/11/22 02:38 INR 1.39 (0.8-1.2) H 09/11/22 02:38 APTT 35.4 SECONDS (23.9-36.7) 09/11/22 02:38 Specimen Type Arterial 09/11/22 07:53 Sample Site Radial, right 09/11/22 07:53 ABG pH 7.49 (7.35-7.45) H 09/11/22 07:53 ABG pCO2 30.1 mmHg (35-45) L 09/11/22 07:53 ABG pO2 97.2 mmHg (80.0-100.0) 09/11/22 07:53 ABG HCO3 22.6 mmol/L (22-26) 09/11/22 07:53 ABG O2 Saturation 99.5 09/11/22 07:53 ABG Base Excess -0.5 mmol/L (-2.0-2.0) 09/11/22 07:53 Lei Test Pos 09/11/22 07:53 A-a O2 Gradient 2.0 mmHg (5-10) L 09/11/22 07:53 Hematocrit 24.7 % (42-52) L 09/11/22 07:53 Hgb O2 Saturation 97.4 % (95-100) 09/11/22 07:53 Carboxyhemoglobin 1.9 %THgb (0.4-20.1) 09/11/22 07:53 Methemoglobin 0.3 % (0.4-1.5) L 09/11/22 07:53 Total Hemoglobin 8.1 g/dL (14-18) L 09/11/22 07:53 Sodium 131.0 mmol/L (131-143) 09/11/22 07:53 Potassium 5.1 mmol/L (3.5-5.0) H 09/11/22 07:53 Glucose 339.0 mg/dL (70-115) H 09/11/22 07:53 Ionized Calcium 1.1 mmol/L (1.1-1.4) 09/11/22 07:53 O2 Delivery Device Nc 09/11/22 07:53 O2 Liters/Min 2.0 % 09/11/22 07:53 FiO2 36.0 % 09/10/22 17:28 Leasing Property Manager ID Cak 09/11/22 07:53 Sodium 137 mmol/L (136-145) 09/11/22 13:40 Potassium 4.4 mmol/L (3.5-5.1) 09/11/22 13:40 Chloride 93 mmol/L (98-107) L 09/11/22 13:40 Carbon Dioxide 24 mmol/L (22-29) 09/11/22 13:40 Anion Gap 24.4 (5-19) H 09/11/22 13:40 BUN 56 mg/dL (8-23) H 09/11/22 13:40 Creatinine 5.9 mg/dL (0.7-1.2) H* 09/11/22 13:40 GFR Calculation Not Reportable 09/11/22 13:40 Glucose 181 mg/dL (65-115) H 09/11/22 13:40 POC Glucose 202 mg/dL (70-110) H 09/11/22 18:17 Calculated Osmolality 304 mOsm/kg (285-295) H 09/11/22 13:40 Lactate 2.3 mmol/L (0.5-2.2) H 09/10/22 17:41 Calcium 8.9 mg/dL (8.5-10.5) 09/11/22 13:40 Phosphorus 2.9 mg/dL (2.5-4.5) 09/11/22 02:38 Magnesium 2.7 mg/dL (1.7-2.3) H 09/11/22 02:38 Total Bilirubin 0.7 mg/dL (0.15-1.2) 09/10/22 17:41 AST 27 U/L (0-40) 09/10/22 17:41 ALT 10 U/L (0-41) 09/10/22 17:41 Alkaline Phosphatase 82 U/L (40-130) 09/10/22 17:41 Troponin T Baseline 120 ng/L (0-15) H* 09/10/22 17:41 Troponin T 120 Minute 111.3 ng/L (0-15) H 09/10/22 19:20 Delta Troponin T -8.7 ABS# (0-10) L 09/10/22 19:20 Troponin T Hi Sens 6Hr 105.8 ng/L (0-15) H 09/10/22 23:33 Troponin T Hi Sens 6Hr Delta -14.2 ng/L (0-12) L 09/10/22 23:33 NT-Pro-B Natriuret Pep 7948 pg/mL (0-450) H 09/10/22 17:41 Total Protein 6.7 g/dL (6.6-8.7) 09/10/22 17:41 Albumin 4.4 g/dL (3.5-5.2) 09/10/22 17:41 Globulin 2.3 g/dL (1.3-4.6) 09/10/22 17:41 Lipase 43 U/L (13-60) 09/10/22 17:41 Procalcitonin 6.16 ng/mL (0-0.5) H 09/11/22 02:38 TSH 3.22 uIU/mL (0.27-4.20) 09/10/22 17:41 Urine Color Yellow (Yellow) 09/10/22 19:17 Urine Appearance Clear (CLEAR) 09/10/22 19:17 Urine pH 5 (5-7) 09/10/22 19:17 Ur Specific Dike 1.020 (1.005-1.030) 09/10/22 19:17 Urine Protein 1+ (Negative) H 09/10/22 19:17 Urine Glucose (UA) Norm (Normal) 09/10/22 19:17 Urine Ketones Negative (Negative) 09/10/22 19:17 Urine Blood 3+ (Negative) H 09/10/22 19:17 Urine Nitrate Negative (Negative) 09/10/22 19:17 Urine Bilirubin 1+ (Negative) H 09/10/22 19:17 Urine Urobilinogen Norm mg/dL (Negative) 09/10/22 19:17 Ur Leukocyte Esterase Negative (Negative) 09/10/22 19:17 Urine RBC 0-4 /hpf (0-2) H 09/10/22 19:17 Urine WBC 0-4 /hpf (0-5) H 09/10/22 19:17 Ur Squamous Epith Cells 0-4 /hpf (0-5) H 09/10/22 19:17 Amorphous Sediment Not Reportable 09/10/22 19:17 Urine Bacteria Trace /hpf (NONE) 09/10/22 19:17 U Random Total Protein 273 mg/dL 09/11/22 Unknown Ur Random Sodium 64 mmol/L 09/11/22 Unknown Urine Creatinine 128 mg/dL (39-259) 09/11/22 00:05 Digoxin 1.0 ng/mL (0.6-1.2) 09/11/22 13:40 Coronavirus 229E (PCR) Not detected (NOT DETECT) 09/10/22 17:55 SARS-CoV-2 (PCR) Not detected (NOT DETECT) 09/10/22 17:55 Micro: Microbiology 09/11/22 03:20 MRSA Culture - Final Nose 09/11/22 06:20 Enteric Pathogens (PCR) - Final Stool Routine Collection Parasite Antigen Panel - Final 09/10/22 19:47 Bacterial Antigens - Final Urine Kidney 09/10/22 19:47 Legionella Urinary Antigen - Final Urine Catheterized 09/10/22 18:25 Blood Culture - Preliminary Blood SPECIMEN COLLECTED 09/10/22 18:35 Blood Culture - Preliminary Blood SPECIMEN COLLECTED Echo: My impression: ?Severe hypokinesia of the mid and apical septum and inferior ?wall segments.? ?Left ventricular ejection fraction around 45%. ?Thickened mitral valve. Moderate mitral annular calcification. ?Thickened aortic valve. ?There is no pericardial effusion. ?There are no intracardiac masses. ?Compared to the study from 03/03/2022, the LV ejection fraction ?appears to have improved. EKG 1: My Interpretation: Atrial fibrillation with possible junctional rhythm of 45 bpm. Occasional supraventricular ectopics. Poor R wave progression with a QS pattern in lead V2 and V3 suggesting anteroseptal infarction nonspecific T wave change the anterolateral leads A&P Assessment and plan (1) Acute hyperkalemia: The hyperkalemia is being corrected now. The latest potassium level was 5.4. (2) NADER (acute kidney injury): Most likely the dehydration might have caused the the acute kidney injury. Careful hydration would be appropriate. (3) HFrEF (heart failure with reduced ejection fraction): The heart failure is currently compensated. May continue on the current medications. (4) Aortic stenosis: The stenosis is moderate based on the echocardiogram. We may do a repeat echocardiogram to reevaluate the valve. Based on the results, further recommendations will be made (5) COPD (chronic obstructive pulmonary disease): Patient is on 24-hour oxygen. Has been using 2 and half liters at home; currently is on 3 L (6) Pneumonia: Clinically the patient is stable -continue antibiotics as prescribed (7) Atrial fibrillation: Patient may have underlying sinus node dysfunction. Sometime down the line he may require a permanent pacer implantation. As of now since he is stable, will be closely monitored on the telemetry Plan Continue the treatment for the acute renal failure as per nephrology. We will closely monitor the heart rhythm Continue on your current medications. Consult Attestations Medical Necessity Statement: Patient requires continued hospital stay for close monitoring and further management Coding Level of Care Code 35486 Diagnoses Acute hyperkalemia E87.5 NADER (acute kidney injury) N17.9 HFrEF (heart failure with reduced ejection fraction) I50.20 Aortic stenosis I35.0 COPD (chronic obstructive pulmonary disease) J44.9 Pneumonia J18.9 Atrial fibrillation I48.91
[2022-09-11 14:40] LABS: Anion Gap 24.4 (5-19); Blood Urea Nitrogen 56 mg/dL (8-23); Calcium 8.9 mg/dL (8.5-10.5); Carbon Dioxide 24 mmol/L (22-29); Chloride 93 mmol/L (98-107); Glucose 181 mg/dL (65-115); Osmolality Calculated 304 mOsm/kg (285-295); Potassium 4.4 mmol/L (3.5-5.1); Sodium 137 mmol/L (136-145)
[2022-09-11 15:15] LABS: Creatinine Clr Calc Pharmacy 9.6546
[2022-09-11 18:20] LABS: Glucose Point of Care 202 mg/dL (70-110)
[2022-09-11] MEDS: atorvastatin 40 mg Tablet 80 MG PO (18:20)
[2022-09-11 20:41] LABS: Anion Gap 20.8 (5-19); Blood Urea Nitrogen 63 mg/dL (8-23); Calcium 8.9 mg/dL (8.5-10.5); Carbon Dioxide 25 mmol/L (22-29); Chloride 91 mmol/L (98-107); Glucose 285 mg/dL (65-115); Osmolality Calculated 302 mOsm/kg (285-295); Potassium 4.8 mmol/L (3.5-5.1); Sodium 132 mmol/L (136-145)
[2022-09-11 20:47] LABS: Creatinine Clr Calc Pharmacy 9.6546
[2022-09-11 20:56] LABS: Glucose Point of Care 322 mg/dL (70-110)
--- NOTE | 2022-09-11 23:14 | US_ITS ---
WS: [id number] RENAL ULTRASOUND HISTORY: ARF COMPARISON: 09/14/2021 TECHNIQUE: 2-D and color Doppler imaging of the kidney submitted. Right kidney: 13.0 cm x 5.1 cm x 4.9 cm. Normal size kidney. Cortical cyst upper pole measures 2.3 x 2.0 cm. Similar to the prior exam. No hyd ronephrosis or solid mass. Left kidney: 11.1 cm x 6.6 cm x 5.2 cm. Normal echogenicity with no hydronephrosis or mass. Aorta: Not visualized. Urinary Bladder: Nondistended urinary bladder. US/US renal BI* [id number] IMPRESSION: 1. No hydronephrosis or solid mass. 2. Stable 2.3 cm RIGHT renal cyst.
[2022-09-12] VITALS (28 sets, daily range): BP systolic 102–146; BP diastolic 42–69; PULSE 72–107; RESP 16–26; O2SAT 92–100; BMI 22.8
[2022-09-12 05:33] LABS: Basophils % 0.1 %; Eosinophils % 0.2 %; Hematocrit 22.7 % (42.0-52.0); Hemoglobin 7.3 g/dL (11.7-16.6); Lymphocytes # 0.7 10^3/uL (0.8-4.8); Lymphocytes % 5.9 %; Mean Corpuscular HGB Conc 32.2 g/dL (30.0-36.0); Mean Corpuscular Hemoglobin 30.3 pg (28.0-34.0); Mean Corpuscular Volume 94.2 fl (80-94); Mean Platelet Volume 12.2 fL (7.4-10.4); Monocytes # 1.4 10^3/uL (0.2-0.9); Monocytes % 12.6 %; Neutrophils # 8.93 10^3/uL (1.8-7.7); Neutrophils % 80.1 %; Nucleated Red Blood Cells % 0 %; Platelet Count 168 10^3/cmm (130-400); Red Blood Count 2.41 10^6/uL (4.1-5.3); Red Cell Distribution Width 16.7 % (12.1-15.1); White Blood Count 11.1 10^3/uL (4.0-10.0)
[2022-09-12 08:02] LABS: Glucose Point of Care 207 mg/dL (70-110)
[2022-09-12] MEDS: ipratropium-albuterol 3 mL Neb INHALATION ×3 (08:25→20:27)
[2022-09-12] MEDS: budesonide 0.5 mg/2 mL Neb INHALATION ×2 (08:25→20:27)
[2022-09-12] MEDS: sodium bicarbonate 650 mg Tablet 1300 MG PO ×3 (09:24→20:50)
[2022-09-12] MEDS: pantoprazole DR 40 mg Tablet PO ×2 (09:24→17:20)
[2022-09-12] MEDS: citric acid-sodium citrate 30 mL UDC 60 ML PO ×2 (09:25→17:20)
[2022-09-12] MEDS: insulin lispro 100 unit/1 mL SUBCUT ×4 (09:25→20:49)
[2022-09-12] MEDS: piperacillin-tazobactam 3.375 GM in sodium chloride 0.9% (plus) 50 ML IV ×2 (09:26→20:49)
[2022-09-12] MEDS: vancomycin 500 MG in sodium chloride 0.9% (plus) 100 ML 200 MG IV (09:37)
--- NOTE | 2022-09-12 10:40 | PM.PN ---
Subjective Subjective: Patient is feeling okay. No chest pain or palpitations no dizziness or syncopal episodes. Denies any unusual shortness of breath. No fever, chills or cough Medications: Medication Review Details: Current Medications Acetaminophen (Acetaminophen 325 Mg Tablet) 650 mg PO Q6H PRN PRN Reason: Mild/Mod Pain Or Temp >/= 101 Albuterol/Ipratropium (Ipratropium-Albuterol 3 Ml Neb) 3 ml INHALATION QID.RESPIRATORY SHIELA Last Admin: 09/12/22 08:25 Dose: 3 ml Atorvastatin Calcium (Atorvastatin 40 Mg Tablet) 80 mg PO QPM SHIELA Last Admin: 09/11/22 18:20 Dose: 80 mg Bisacodyl (Bisacodyl 5 Mg Tablet) 10 mg PO DAILY PRN; Protocol PRN Reason: Constipation (see protocol) Budesonide (Budesonide 0.5 Mg/2 Ml Neb) 0.5 mg INHALATION BID.RESPIRATORY [facility] Last Admin: 09/12/22 08:25 Dose: 0.5 mg Citric Acid/Sodium Citrate (Citric Acid-Sodium Citrate 30 Ml Udc) 60 ml PO BID [facility] Stop: 09/13/22 18:00 Last Admin: 09/12/22 09:25 Dose: 60 ml Dextrose (Dextrose 50% Syringe 50 Ml) 25 ml IVP ONCE PRN; Protocol PRN Reason: hypoglycemia protocol Dextrose (Dextrose 50% Syringe 50 Ml) 50 ml IVP PRN PRN; Protocol PRN Reason: hypoglycemia protocol Dextrose (Dextrose 50% Syringe 50 Ml) 25 ml IVP ONCE PRN; Protocol PRN Reason: hypoglycemia protocol Dextrose (Dextrose 50% Syringe 50 Ml) 50 ml IVP PRN PRN; Protocol PRN Reason: hypoglycemia protocol Glucagon (Glucagon 1 Mg/Ml Inj 1 Ml) 1 mg IM ONCE PRN; Protocol PRN Reason: Adult Acute Hypoglycemia Prot. Glucagon (Glucagon 1 Mg/Ml Inj 1 Ml) 1 mg IM ONCE PRN; Protocol PRN Reason: Adult Acute Hypoglycemia Prot. Heparin Sodium (Porcine) (Heparin 5,000 Unit/Ml Inj 1 Ml) 5,000 unit SUBCUT Q12H [facility] Last Admin: 09/11/22 23:21 Dose: 5,000 unit Dextrose (D5w) 500 mls @ 100 mls/hr IV ONCE PRN; Protocol PRN Reason: Adult Acute Hypoglycemia Prot Vancomycin HCl 500 mg/ Sodium (Chloride) 100 mls @ 200 mls/hr IV Q24H [facility] Last Infusion: 09/12/22 10:07 Dose: Infused Lactated Ringer's (Lactated Ringers) 1,000 mls @ 75 mls/hr IV .[id number] [facility] Last Admin: 09/11/22 23:20 Dose: 100 mls/hr Piperacillin Sod/Tazobactam (Sod 3.375 gm/ Sodium Chloride) 50 mls @ 12.5 mls/hr IV Q12H [facility]IELA; Protocol Last Admin: 09/12/22 09:26 Dose: 12.5 mls/hr Dextrose (D5w) 500 mls @ 100 mls/hr IV ONCE PRN; Protocol PRN Reason: Adult Acute Hypoglycemia Prot Insulin Glargine (Insulin Glargine 100 Units/1 Ml) 20 unit SUBCUT BEDTIME [facility] Last Admin: 09/11/22 20:50 Dose: 20 unit Insulin Human Lispro (Insulin Lispro 100 Unit/1 Ml) 0 unit SUBCUT WM&BEDTIME [facility]; Protocol Last Admin: 09/12/22 09:25 Dose: 8 unit Ondansetron HCl (Ondansetron 2 Mg/Ml Sdv 2 Ml) 4 mg IVP Q8H PRN PRN Reason: vomiting, or N/V if npo Pantoprazole Sodium (Pantoprazole Dr 40 Mg Tablet) 40 mg PO BID [facility] Last Admin: 09/12/22 09:24 Dose: 40 mg Sodium Bicarbonate (Sodium Bicarbonate 650 Mg Tablet) 1,300 mg PO TID [facility] Last Admin: 09/12/22 09:24 Dose: 1,300 mg Vitals/I&O/Wt Last Vital Signs Temp 97.8 F 09/11/22 16:00 Pulse 79 09/12/22 10:00 Resp 25 H 09/12/22 10:00 BP 144/55 09/12/22 10:00 Pulse Ox 99 09/12/22 10:00 O2 Del Method 09/12/22 08:30 O2 Flow Rate 2 09/12/22 08:30 09/11/22 09/12/22 09/12/22 22:59 06:59 14:59 Intake Total 1680.35 / 3520.35 530 / 4050.35 580 / 580 Output Total 1800 / 1800 Balance 1680.35 / 3520.35 -1270 / 2250.35 580 / 580 Weight last 48 hrs Weight 146 lb Weight 146 lb Weight 164 lb Physical Exam Narrative: GENERAL: The patient is alert and oriented times three. Not in any acute distress. HEENT: Moderate pallor. No icterus or lymphadenopathy.Oral cavity: There are no mucous membrane lesions. NECK: Trachea appears to be central. No masses noted. No JVD or thyromegaly appreciated. RESPIRATORY: Chest is symmetrical. No intercostals muscle retraction or any accessory muscle activation. There is no chest wall tenderness. Breath sounds are heard bilaterally. No rales or rhonchi heard. No evidence of any consolidation. BREASTS: Deferred. HEART: The heart sounds are normal. No S3 or S4. Ejection systolic murmur grade 3 or 6 in the aortic area. No diastolic murmurs. No pericardial rub ABDOMEN: No vessel pulsations or distention. No tenderness. No organomegaly appreciated. Bowel sounds are normally heard. : Deferred. RECTAL: Deferred. LYMPHATIC: No lymphadenopathy noted in the neck. EXTREMITIES: No edema or cyanosis. No clubbing. MUSCULOSKELETAL: No acute joint deformities or swelling SKIN: There are no significant rashes or ecchymosis NEUROPSYCHIATRIC: Alert and oriented to place and person. No focal motor deficits. Urinary Catheter Management: Ortiz: Cath Placed During This Visit: yes Reason for Continuing Indwelling Catheter: Accurate Measurement of Urinary Output in Critically Ill Patients Urinary Catheter Date of Insertion: 09/10/22 Urinary Catheter Time of Insertion: 19:30 Data 09/12/22 04:52 09/11/22 20:15 Other Labs: Laboratory Last Values WBC 11.1 10^3/uL (4.0-10.0) H 09/12/22 04:52 RBC 2.41 10^6/uL (4.1-5.3) L 09/12/22 04:52 Hgb 7.3 g/dL (11.7-16.6) L 09/12/22 04:52 Hct 22.7 % (42.0-52.0) L 09/12/22 04:52 MCV 94.2 fl (80-94) H 09/12/22 04:52 MCH 30.3 pg (28.0-34.0) 09/12/22 04:52 MCHC 32.2 g/dL (30.0-36.0) D 09/12/22 04:52 RDW 16.7 % (12.1-15.1) H 09/12/22 04:52 Plt Count 168 10^3/cmm (130-400) 09/12/22 04:52 MPV 12.2 fL (7.4-10.4) H 09/12/22 04:52 Neut % (Auto) 80.1 % 09/12/22 04:52 Lymph % (Auto) 5.9 % 09/12/22 04:52 [place] % (Auto) 12.6 % 09/12/22 04:52 Eos % (Auto) 0.2 % 09/12/22 04:52 Baso % (Auto) 0.1 % 09/12/22 04:52 Neut # (Auto) 8.93 10^3/uL (1.8-7.7) H 09/12/22 04:52 Lymph # (Auto) 0.7 10^3/uL (0.8-4.8) L 09/12/22 04:52 [place] # (Auto) 1.4 10^3/uL (0.2-0.9) H 09/12/22 04:52 Eos # (Auto) 0.0 10^3/uL (0.0-0.8) 09/12/22 04:52 Baso # (Auto) 0.0 10^3/uL (0.0-0.1) 09/12/22 04:52 Nucleated RBC % (auto) 0 % 09/12/22 04:52 Nucleated RBCs # 0.0 /100WBC 09/12/22 04:52 PT 17.50 SECONDS (12.1-14.9) H 09/11/22 02:38 INR 1.39 (0.8-1.2) H 09/11/22 02:38 APTT 35.4 SECONDS (23.9-36.7) 09/11/22 02:38 Specimen Type Arterial 09/11/22 07:53 Sample Site Radial, right 09/11/22 07:53 ABG pH 7.49 (7.35-7.45) H 09/11/22 07:53 ABG pCO2 30.1 mmHg (35-45) L 09/11/22 07:53 ABG pO2 97.2 mmHg (80.0-100.0) 09/11/22 07:53 ABG HCO3 22.6 mmol/L (22-26) 09/11/22 07:53 ABG O2 Saturation 99.5 09/11/22 07:53 ABG Base Excess -0.5 mmol/L (-2.0-2.0) 09/11/22 07:53 Lei Test Pos 09/11/22 07:53 A-a O2 Gradient 2.0 mmHg (5-10) L 09/11/22 07:53 Hematocrit 24.7 % (42-52) L 09/11/22 07:53 Hgb O2 Saturation 97.4 % (95-100) 09/11/22 07:53 Carboxyhemoglobin 1.9 %THgb (0.4-20.1) 09/11/22 07:53 Methemoglobin 0.3 % (0.4-1.5) L 09/11/22 07:53 Total Hemoglobin 8.1 g/dL (14-18) L 09/11/22 07:53 Sodium 131.0 mmol/L (131-143) 09/11/22 07:53 Potassium 5.1 mmol/L (3.5-5.0) H 09/11/22 07:53 Glucose 339.0 mg/dL (70-115) H 09/11/22 07:53 Ionized Calcium 1.1 mmol/L (1.1-1.4) 09/11/22 07:53 O2 Delivery Device Nc 09/11/22 07:53 O2 Liters/Min 2.0 % 09/11/22 07:53 FiO2 36.0 % 09/10/22 17:28 [employer] Service Officer ID Cak 09/11/22 07:53 Sodium 132 mmol/L (136-145) L 09/11/22 20:15 Potassium 4.8 mmol/L (3.5-5.1) 09/11/22 20:15 Chloride 91 mmol/L (98-107) L 09/11/22 20:15 Carbon Dioxide 25 mmol/L (22-29) 09/11/22 20:15 Anion Gap 20.8 (5-19) H 09/11/22 20:15 BUN 63 mg/dL (8-23) H 09/11/22 20:15 Creatinine 5.9 mg/dL (0.7-1.2) H* 09/11/22 20:15 GFR Calculation Not Reportable 09/11/22 20:15 Glucose 285 mg/dL (65-115) H 09/11/22 20:15 POC Glucose 207 mg/dL (70-110) H 09/12/22 07:59 Calculated Osmolality 302 mOsm/kg (285-295) H 09/11/22 20:15 Lactate 2.3 mmol/L (0.5-2.2) H 09/10/22 17:41 Calcium 8.9 mg/dL (8.5-10.5) 09/11/22 20:15 Phosphorus 2.9 mg/dL (2.5-4.5) 09/11/22 02:38 Magnesium 2.7 mg/dL (1.7-2.3) H 09/11/22 02:38 Total Bilirubin 0.7 mg/dL (0.15-1.2) 09/10/22 17:41 AST 27 U/L (0-40) 09/10/22 17:41 ALT 10 U/L (0-41) 09/10/22 17:41 Alkaline Phosphatase 82 U/L (40-130) 09/10/22 17:41 Troponin T Baseline 120 ng/L (0-15) H* 09/10/22 17:41 Troponin T 120 Minute 111.3 ng/L (0-15) H 09/10/22 19:20 Delta Troponin T -8.7 ABS# (0-10) L 09/10/22 19:20 Troponin T Hi Sens 6Hr 105.8 ng/L (0-15) H 09/10/22 23:33 Troponin T Hi Sens 6Hr Delta -14.2 ng/L (0-12) L 09/10/22 23:33 NT-Pro-B Natriuret Pep 7948 pg/mL (0-450) H 09/10/22 17:41 Total Protein 6.7 g/dL (6.6-8.7) 09/10/22 17:41 Albumin 4.4 g/dL (3.5-5.2) 09/10/22 17:41 Globulin 2.3 g/dL (1.3-4.6) 09/10/22 17:41 Lipase 43 U/L (13-60) 09/10/22 17:41 Procalcitonin 6.16 ng/mL (0-0.5) H 09/11/22 02:38 TSH 3.22 uIU/mL (0.27-4.20) 09/10/22 17:41 Urine Color Yellow (Yellow) 09/10/22 19:17 Urine Appearance Clear (CLEAR) 09/10/22 19:17 Urine pH 5 (5-7) 09/10/22 19:17 Ur Specific [place] 1.020 (1.005-1.030) 09/10/22 19:17 Urine Protein 1+ (Negative) H 09/10/22 19:17 Urine Glucose (UA) Norm (Normal) 09/10/22 19:17 Urine Ketones Negative (Negative) 09/10/22 19:17 Urine Blood 3+ (Negative) H 09/10/22 19:17 Urine Nitrate Negative (Negative) 09/10/22 19:17 Urine Bilirubin 1+ (Negative) H 09/10/22 19:17 Urine Urobilinogen Norm mg/dL (Negative) 09/10/22 19:17 Ur Leukocyte Esterase Negative (Negative) 09/10/22 19:17 Urine RBC 0-4 /hpf (0-2) H 09/10/22 19:17 Urine WBC 0-4 /hpf (0-5) H 09/10/22 19:17 Ur Squamous Epith Cells 0-4 /hpf (0-5) H 09/10/22 19:17 Amorphous Sediment Not Reportable 09/10/22 19:17 Urine Bacteria Trace /hpf (NONE) 09/10/22 19:17 U Random Total Protein 273 mg/dL 09/11/22 Unknown Ur Random Sodium 64 mmol/L 09/11/22 Unknown Urine Creatinine 128 mg/dL (39-259) 09/11/22 00:05 Digoxin 1.0 ng/mL (0.6-1.2) 09/11/22 13:40 Coronavirus 229E (PCR) Not detected (NOT DETECT) 09/10/22 17:55 SARS-CoV-2 (PCR) Not detected (NOT DETECT) 09/10/22 17:55 Micro: Microbiology 09/10/22 18:25 Blood Culture - Preliminary Blood NEGATIVE TO DATE 09/10/22 18:35 Blood Culture - Preliminary Blood NEGATIVE TO DATE 09/11/22 03:20 MRSA Culture - Final Nose 09/11/22 06:20 Enteric Pathogens (PCR) - Final Stool Routine Collection Parasite Antigen Panel - Final 09/10/22 19:47 Bacterial Antigens - Final Urine Kidney A&P Assessment and plan (1) Acute hyperkalemia: Patient is currently normokalemic. The BUN and the creatinine still remains high. The urine output is improving. (2) Atrial fibrillation: Patient may have underlying sinus node dysfunction. Sometime down the line he may require a permanent pacer implantation. As of now since he is stable, will be closely monitored on the telemetry (3) NADER (acute kidney injury): Evaluation and management as per the nephrology service (4) HFrEF (heart failure with reduced ejection fraction): The heart failure is currently compensated. May continue on the current medications. (5) Aortic stenosis: The stenosis is moderate based on the echocardiogram. We may do a repeat echocardiogram to reevaluate the valve. Based on the results, further recommendations will be made (6) COPD (chronic obstructive pulmonary disease): Patient is on 24-hour oxygen. Has been using 2.5 L/min by NC at home; currently is on 3 L. May continue on the current measures. (7) Pneumonia: Clinically the patient is stable -continue antibiotics as prescribed Plan Continue the treatment for the acute renal failure as per nephrology. We will closely monitor the heart rhythm Continue on the other current medications. At this point, the patient may not require any specific cardiac intervention. Attestations Medical Necessity Statement*: Deferred to the primary Coding Level of Care Code 75030 Diagnoses Acute hyperkalemia E87.5 Atrial fibrillation I48.91 NADER (acute kidney injury) N17.9 HFrEF (heart failure with reduced ejection fraction) I50.20 Aortic stenosis I35.0 COPD (chronic obstructive pulmonary disease) J44.9 Pneumonia J18.9
[2022-09-12 11:24] LABS: Glucose Point of Care 196 mg/dL (70-110)
[2022-09-12] MEDS: heparin 5,000 unit/mL INJ 1 mL 5000 UNIT SUBCUT (11:25)
--- NOTE | 2022-09-12 12:02 | P.PN_ITS ---
Subjective Subjective: seen this AM digoxin level 1.0 therapeutic talked with pt he states he may have accidentally taken his old digoxin at home however is unsure his dig level should have been < 0.3 as undetected he was aware that he is not supposed to be taking it he states this time, he will just throw the bottle out to ensure such an accident doesnt happen again cr 5.9 today K 4.8 1800 cc urine output overnight hb 7.3. wbc 11.1(down from 33 at admission) Vitals/I&O/Wt Last Vital Signs Temp 97.8 F 09/11/22 16:00 Pulse 81 09/12/22 11:13 Resp 16 09/12/22 11:10 BP 144/55 09/12/22 10:00 Pulse Ox 96 09/12/22 11:10 O2 Del Method 09/12/22 11:10 O2 Flow Rate 2 09/12/22 11:10 09/11/22 09/12/22 09/12/22 22:59 06:59 14:59 Intake Total 1680.35 / 3520.35 530 / 4050.35 580 / 580 Output Total 1800 / 1800 Balance 1680.35 / 3520.35 -1270 / 2250.35 580 / 580 Weight last 48 hrs Weight 66.224 kg Weight 66.224 kg Weight 74.389 kg Physical Exam Narrative: General: Alert oriented x3, patient seen sitting up in recliner on 2 L nasal cannula appearing comfortable.? No acute respiratory distress. HEENT: Normocephalic, atraumatic, EOMI, breathing normally. Cardio: RRR, normal S1-S2 Respiratory: Good bilateral air entry, no wheezes no rhonchi appreciated GI: Abdomen soft, nontender, nondistended, bowel sounds + Behavior: Appropriate and cooperative Extremities: No edema, no cyanosis ? Urinary Catheter Management: Ortiz: Cath Placed During This Visit: yes Reason for Continuing Indwelling Catheter: Accurate Measurement of Urinary Output in Critically Ill Patients Urinary Catheter Date of Insertion: 09/10/22 Urinary Catheter Time of Insertion: 19:30 Data 09/12/22 04:52 09/11/22 20:15 Micro: Microbiology 09/10/22 18:25 Blood Culture - Preliminary Blood NEGATIVE TO DATE 09/10/22 18:35 Blood Culture - Preliminary Blood NEGATIVE TO DATE 09/11/22 03:20 MRSA Culture - Final Nose 09/11/22 06:20 Enteric Pathogens (PCR) - Final Stool Routine Collection Parasite Antigen Panel - Final 09/10/22 19:47 Bacterial Antigens - Final Urine Kidney A&P Assessment and plan (1) Sepsis: (2) Diarrhea: (3) Diabetes mellitus: (4) HTN (hypertension): (5) Acute renal failure: (6) HFrEF (heart failure with reduced ejection fraction): (7) Aortic stenosis: (8) COPD (chronic obstructive pulmonary disease): (9) Pneumonia: (10) NADER (acute kidney injury): (11) Acute hyperkalemia: (12) Atrial fibrillation: (13) Bradycardia: Plan #Sepsis secondary to diarrhea, rule out C. difficile. #Hyperkalemia secondary to NADER #Pneumonia #Acute kidney injury, unsure if underlying CKD, baseline normal to 1.1. Pre sented with creatinine 6.1. Patient is oliguric. #Hypomagnesemia #Gastroenteritis #Chronic congestive heart failure with reduced ejection fraction 35 to 40% #Mitral valve replacement, bioprosthetic #Mild aortic valve stenosis #Diabetes mellitus, insulin-dependent #COPD #History of CABG x3 #Bradycardia, most likely sick sinus syndrome -Baseline creatinine 1-1.4. CT abdomen pelvis did not show any obstructive uropathy ? Renal ultrasound showed: no hydronephrosis. Stable 2.3 cm right renal cyst. ? Avoid nephrotoxic's ? Renal on board. ? Hold RAÚL inhibitor, metformin ? Continue on vancomycin and Zosyn at this time. Follow blood culture, urine culture ? Check C. difficile (pending) and other stool studies ova parasite screen negative, stool culture bacterial panel negative ? Check potassium Q12H. Did receive x-ray insulin calcium gluconate in the ER. ? We will hold off on Kayexalate due to diarrhea. ? DuoNeb every 4 hour as needed, supplemental oxygen as needed ? Heart failure seems to be compensated at this time. ? Heart rate is well controlled and at times bradycardic. Hold Cardizem for now. Hold Eliquis for now in case of any procedure. Patient apparently may have taken digoxin at home. Level 1.0. Had a discussion with patient. He is not to take anymore of that. ? Consult cardiology for bradycardia/sick sinus syndrome. Pacemaker recommended at some point down the road. For now focus on electrolytes and kidney function. Diet: Renal diet, low potassium GI prophylaxis: On omeprazole 40 twice daily at home Full code Continue subcutaneous heparin twice daily Attestations Medical Necessity Statement*: Continued hospitalization for management of NADER, bradycardia. Diagnoses Sepsis A41.9 Diarrhea R19.7 Diabetes mellitus E11.9 HTN (hypertension) I10 Acute renal failure N17.9 HFrEF (heart failure with reduced ejection fraction) I50.20 Aortic stenosis I35.0 COPD (chronic obstructive pulmonary disease) J44.9 Pneumonia J18.9 NADER (acute kidney injury) N17.9 Acute hyperkalemia E87.5 Atrial fibrillation I48.91 Bradycardia R00.1
[2022-09-12 12:53] LABS: Ferritin 226 ng/mL (30-400); Iron 17 ug/dL (59-158); Percent Saturation 6.7 % (20-50); Total Iron Binding Capacity 251 mcg/dl; Unsaturated Iron Binding 234 ug/dL (112-347)
--- NOTE | 2022-09-12 13:02 | PM.PN ---
Subjective Subjective: no new complaints Medications: Reviewed: Yes Vitals/I&O/Wt Last Vital Signs Temp 97.8 F 09/11/22 16:00 Pulse 107 H 09/12/22 12:00 Resp 23 H 09/12/22 12:00 BP 124/63 09/12/22 12:00 Pulse Ox 96 09/12/22 12:00 O2 Del Method 09/12/22 11:10 O2 Flow Rate 2 09/12/22 11:10 09/11/22 09/12/22 09/12/22 22:59 06:59 14:59 Intake Total 1680.35 / 3520.35 530 / 4050.35 580 / 580 Output Total 1800 / 1800 Balance 1680.35 / 3520.35 -1270 / 2250.35 580 / 580 Weight last 48 hrs Weight 66.224 kg Weight 66.224 kg Weight 74.389 kg Physical Exam Narrative: PT IS WAKE ALERT , NO DISTRESS DRY MUCOUS MEMEBRANES NO EDEMA Urinary Catheter Management: Ortiz: Cath Placed During This Visit: yes Reason for Continuing Indwelling Catheter: Accurate Measurement of Urinary Output in Critically Ill Patients Urinary Catheter Date of Insertion: 09/10/22 Urinary Catheter Time of Insertion: 19:30 Data 09/12/22 04:52 09/11/22 20:15 Micro: Microbiology 09/10/22 19:47 Urine Culture - Preliminary Urine,Clean Catch 09/10/22 18:25 Blood Culture - Preliminary Blood NEGATIVE TO DATE 09/10/22 18:35 Blood Culture - Preliminary Blood NEGATIVE TO DATE 09/11/22 03:20 MRSA Culture - Final Nose 09/11/22 06:20 Enteric Pathogens (PCR) - Final Stool Routine Collection Parasite Antigen Panel - Final 09/10/22 19:47 Bacterial Antigens - Final Urine Kidney A&P Assessment and plan (1) Acute renal failure: Plan 1. Acute on chronic kidney disease: Creatinine baseline of 1.2 a month ago, now presents with NADER secondary to prerenal/likely has developed ATN. Continue IV fluids, no acute indication for dialysis, continue to monitor renal function closely. Avoid nephrotoxins and IV contrast studies. Holding RAÚL inhibitors, diuretics and metformin 2. Metabolic acidosis: We will order Bicitra and monitor 3. Severe hyperkalemia: improved 4. Acute on chronic respiratory failure: History of COPD and CHF, hold diuretics and RAÚL inhibitor's temporarily 5. A-fib: Rate controlled 6. History of CHF Patient evaluated using audiovisual cart. Time spent 45 minutes. Attestations Medical Necessity Statement*: Continued hospitalization for management of NADER, bradycardia. Coding Level of Care Code Acute Code for g Fwd Diagnoses Acute renal failure N17.9
[2022-09-12] MEDS: lactated ringers 1,000 ML 100 ML IV (14:15)
[2022-09-12] MEDS: acetaminophen 325 mg Tablet 650 MG PO ×2 (14:19→20:50)
[2022-09-12 17:10] LABS: Glucose Point of Care 147 mg/dL (70-110)
[2022-09-12] MEDS: atorvastatin 40 mg Tablet 80 MG PO (17:20)
--- NOTE | 2022-09-12 18:59 | PC.NURSE ---
Shift Note Frequent safety and comfort rounds continue. Orders and nursing care completed as indicated. Patient sat up in the chair today for about 5 hours with SBA, patient tolerated well. After lunch this nurse assisted patient back to bed and at this time patient complained of a headache, this nurse gave PRN order of Tylenol as ordered. Patient's vital signs noted to be WNL throughout the day, also received a linen change. Patient monitored for response to intervention and treatments. Education provided includes oxygen requirement, prevention of pressure injury and NADER disease process, more educational reinforcement needed. Report given bedside to VANE Giles.
[2022-09-12 19:34] LABS: Basophils % 0.1 %; Eosinophils % 0.3 %; Hematocrit 21.5 % (42.0-52.0); Hemoglobin 6.7 g/dL (11.7-16.6); Lymphocytes # 0.5 10^3/uL (0.8-4.8); Lymphocytes % 7.1 %; Mean Corpuscular HGB Conc 31.2 g/dL (30.0-36.0); Mean Corpuscular Hemoglobin 29.5 pg (28.0-34.0); Mean Corpuscular Volume 94.7 fl (80-94); Mean Platelet Volume 11.7 fL (7.4-10.4); Monocytes % 12.5 %; Neutrophils # 5.99 10^3/uL (1.8-7.7); Neutrophils % 78.3 %; Nucleated Red Blood Cells % 0 %; Platelet Count 143 10^3/cmm (130-400); Red Blood Count 2.27 10^6/uL (4.1-5.3); Red Cell Distribution Width 16.6 % (12.1-15.1); White Blood Count 7.7 10^3/uL (4.0-10.0)
[2022-09-12 20:38] LABS: Glucose Point of Care 205 mg/dL (70-110)
[2022-09-12] MEDS: insulin glargine 100 units/1 mL 20 UNIT SUBCUT (20:48)
[2022-09-13] VITALS (26 sets, daily range): BP systolic 110–153; BP diastolic 49–71; PULSE 78–90; RESP 16–27; O2SAT 93–100
[2022-09-13] MEDS: lactated ringers 1,000 ML 100 ML IV (03:20)
[2022-09-13 05:35] LABS: Basophils % 0.1 %; Eosinophils % 0.6 %; Hematocrit 23.9 % (42.0-52.0); Hemoglobin 7.5 g/dL (11.7-16.6); Lymphocytes # 0.6 10^3/uL (0.8-4.8); Lymphocytes % 9.3 %; Mean Corpuscular HGB Conc 31.4 g/dL (30.0-36.0); Mean Corpuscular Volume 95.6 fl (80-94); Monocytes # 0.9 10^3/uL (0.2-0.9); Monocytes % 12.5 %; Neutrophils # 5.26 10^3/uL (1.8-7.7); Neutrophils % 76.2 %; Nucleated Red Blood Cells % 0 %; Platelet Count 172 10^3/cmm (130-400); Red Cell Distribution Width 16.4 % (12.1-15.1); White Blood Count 6.9 10^3/uL (4.0-10.0)
[2022-09-13 06:00] LABS: Anion Gap 15.4 (5-19); Blood Urea Nitrogen 35 mg/dL (8-23); Calcium 8.7 mg/dL (8.5-10.5); Carbon Dioxide 27 mmol/L (22-29); Chloride 99 mmol/L (98-107); Glucose 76 mg/dL (65-115); Magnesium 2.1 mg/dL (1.7-2.3); Osmolality Calculated 291 mOsm/kg (285-295); Phosphorus 3.9 mg/dL (2.5-4.5); Potassium 4.4 mmol/L (3.5-5.1); Sodium 137 mmol/L (136-145)
[2022-09-13 06:03] LABS: Creatinine Clr Calc Pharmacy 14.1264
[2022-09-13] MEDS: acetaminophen 325 mg Tablet 650 MG PO (07:18)
[2022-09-13] MEDS: citric acid-sodium citrate 30 mL UDC 60 ML PO ×2 (08:36→17:11)
[2022-09-13] MEDS: sodium bicarbonate 650 mg Tablet 1300 MG PO ×3 (08:36→20:44)
[2022-09-13] MEDS: piperacillin-tazobactam 3.375 GM in sodium chloride 0.9% (plus) 50 ML IV ×2 (08:36→20:44)
[2022-09-13] MEDS: pantoprazole DR 40 mg Tablet PO ×2 (08:36→17:11)
[2022-09-13 08:37] LABS: Glucose Point of Care 75 mg/dL (70-110)
--- NOTE | 2022-09-13 09:19 | PM.PN ---
Subjective Subjective: seen today feeling better urine output 4800 cc in last 24 hours HR better no bradycardia Vitals/I&O/Wt Last Vital Signs Temp 97.8 F 09/11/22 16:00 Pulse 78 09/13/22 08:00 Resp 16 09/13/22 08:00 BP 148/69 09/13/22 08:00 Pulse Ox 96 09/13/22 08:00 O2 Del Method 09/13/22 08:00 O2 Flow Rate 2 09/13/22 08:00 09/12/22 09/13/22 09/13/22 22:59 06:59 14:59 Intake Total 600 / 2470 1050 / 3520 Output Total 1900 / 1900 2900 / 4800 Balance -1300 / 570 -1850 / -1280 Weight last 48 hrs Weight 69 kg Weight 66.224 kg Physical Exam Narrative: General: Alert oriented x3, patient seen sitting up in recliner on 2 L nasal cannula appearing comfortable.? No acute respiratory distress. HEENT: Normocephalic, atraumatic, EOMI, breathing normally. Cardio: RRR, normal S1-S2 Respiratory: Good bilateral air entry, no wheezes no rhonchi appreciated GI: Abdomen soft, nontender, nondistended, bowel sounds + Behavior: Appropriate and cooperative Extremities: No edema, no cyanosis ? Urinary Catheter Management: Ortiz: Cath Placed During This Visit: yes Reason for Continuing Indwelling Catheter: Accurate Measurement of Urinary Output in Critically Ill Patients Urinary Catheter Date of Insertion: 09/10/22 Urinary Catheter Time of Insertion: 19:30 Data 09/13/22 04:40 09/13/22 04:40 Micro: Microbiology 09/10/22 19:47 Urine Culture - Final Urine,Clean Catch 09/11/22 06:20 Enteric Pathogens (PCR) - Final Stool Routine Collection Parasite Antigen Panel - Final C.difficile Toxin B Gene (PCR) - Final A&P Assessment and plan (1) Sepsis: (2) Diarrhea: (3) Diabetes mellitus: (4) HTN (hypertension): (5) Acute renal failure: (6) HFrEF (heart failure with reduced ejection fraction): (7) Aortic stenosis: (8) COPD (chronic obstructive pulmonary disease): (9) Pneumonia: (10) NADER (acute kidney injury): (11) Acute hyperkalemia: (12) Atrial fibrillation: (13) Bradycardia: Plan #Sepsis secondary to diarrhea, rule out C. difficile. #Hyperkalemia secondary to NADER #Pneumonia #Anemia, iron deficiency vs kidney dysfunction #Acute kidney injury, unsure if underlying CKD, baseline normal to 1.1. Presented with creatinine 6.1. Patient is oliguric. #Hypomagnesemia #Gastroenteritis #Chronic congestive heart failure with reduced ejection fraction 35 to 40% #Mitral valve replacement, bioprosthetic #Mild aortic valve stenosis #Diabetes mellitus, insulin-dependent #COPD #History of CABG x3 #Bradycardia, most likely sick sinus syndrome -Baseline creatinine 1-1.4. CT abdomen pelvis did not show any obstructive uropathy ? Renal ultrasound showed: no hydronephrosis. Stable 2.3 cm right renal cyst. ? Avoid nephrotoxic's ? Renal on board. ? Hold RAÚL inhibitor, metformin ? Continue on vancomycin and Zosyn at this time. Follow blood culture, urine culture ? Check C. difficile (neg) and other stool studies ova parasite screen negative, stool culture bacterial panel negative. ? We will hold off on Kayexalate due to diarrhea. ? DuoNeb every 4 hour as needed, supplemental oxygen as needed ? Heart failure seems to be compensated at this time. ? Heart rate is well controlled and at times bradycardic. Hold Cardizem for now. Hold Eliquis for now in case of any procedure. Patient apparently may have taken digoxin at home. Level 1.0. Had a discussion with patient. He is not to take anymore of that. ? Consult cardiology for bradycardia/sick sinus syndrome. Pacemaker recommended at some point down the road. For now focus on electrolytes and kidney function. - order IV iron sucrose 200 mg x3 days. - no digoxin at dc - start cardizem cd 60 mg daily Diet: Renal diet, low potassium GI prophylaxis: On omeprazole 40 twice daily at home Full code Continue subcutaneous heparin twice daily Attestations Medical Necessity Statement*: Continued hospitalization for management of NADER, bradycardia. Diagnoses Sepsis A41.9 Diarrhea R19.7 Diabetes mellitus E11.9 HTN (hypertension) I10 Acute renal failure N17.9 HFrEF (heart failure with reduced ejection fraction) I50.20 Aortic stenosis I35.0 COPD (chronic obstructive pulmonary disease) J44.9 Pneumonia J18.9 NADER (acute kidney injury) N17.9 Acute hyperkalemia E87.5 Atrial fibrillation I48.91 Bradycardia R00.1
[2022-09-13] MEDS: vancomycin 500 MG in sodium chloride 0.9% (plus) 100 ML 200 MG IV (10:13)
[2022-09-13] MEDS: ipratropium-albuterol 3 mL Neb INHALATION (11:17)
--- NOTE | 2022-09-13 11:55 | PC.SOCIAL ---
Imm update Imm updated with patient at bedside. Copy of page 2 provided. Patient verbalized understanding. Copy in chart initialed, dated and timed.
[2022-09-13] MEDS: iron sucrose 200 MG in sodium chloride 0.9% (100 ml) 100 ML 220 MG IV (12:41)
[2022-09-13] MEDS: insulin lispro 100 unit/1 mL SUBCUT ×2 (12:42→17:19)
--- NOTE | 2022-09-13 12:50 | PC.NURSE ---
Patient up in chair with SBA for breakfast and lunch, patient tolerated the transfer well. Granddaughter currently visiting at bedside. This nurse notified by blood bank that ordered unit of RBCs is ready for patient. Hbg this am noted to be 7.5 notified, verbal orders to hold unit of blood at this time.
--- NOTE | 2022-09-13 13:03 | PM.PN ---
Subjective Subjective: no new complaints Medications: Reviewed: Yes Vitals/I&O/Wt Last Vital Signs Temp 97.8 F 09/11/22 16:00 Pulse 87 09/13/22 12:00 Resp 16 09/13/22 11:17 BP 110/63 09/13/22 12:00 Pulse Ox 98 09/13/22 12:00 O2 Del Method 09/13/22 11:17 O2 Flow Rate 2 09/13/22 11:17 09/12/22 09/13/22 09/13/22 22:59 06:59 14:59 Intake Total 600 / 2470 1050 / 3520 1110 / 1110 Output Total 1900 / 1900 2900 / 4800 Balance -1300 / 570 -1850 / -1280 1110 / 1110 Weight last 48 hrs Weight 69 kg Weight 66.224 kg Physical Exam Narrative: PT IS WAKE ALERT , NO DISTRESS DRY MUCOUS MEMEBRANES NO EDEMA Urinary Catheter Management: Ortiz: Cath Placed During This Visit: yes Reason for Continuing Indwelling Catheter: Accurate Measurement of Urinary Output in Critically Ill Patients Urinary Catheter Date of Insertion: 09/10/22 Urinary Catheter Time of Insertion: 19:30 Data 09/13/22 04:40 09/13/22 04:40 Micro: Microbiology 09/10/22 19:47 Urine Culture - Final Urine,Clean Catch 09/11/22 06:20 Enteric Pathogens (PCR) - Final Stool Routine Collection Parasite Antigen Panel - Final C.difficile Toxin B Gene (PCR) - Final A&P Assessment and plan (1) Acute renal failure: Plan 1. Acute on chronic kidney disease: Creatinine baseline of 1.2 a month ago, now presents with NADER secondary to prerenal/likely has developed ATN. Continue IV fluids, no acute indication for dialysis, continue to monitor renal function closely. Avoid nephrotoxins and IV contrast studies. Holding RAÚL inhibitors, diuretics and metformin - -Cr peakd at 5.9 , improved to 4.1 today , noted polyuria due to recovering ATN 2. Metabolic acidosis: improved , s/p r Bicitra and monitor 3. Severe hyperkalemia: improved 4. Acute on chronic respiratory failure: History of COPD and CHF, hold diuretics and RAÚL inhibitor's temporarily 5. A-fib: Rate controlled 6. History of CHF 7. Anemia : Iron def , Hb 7.5 Patient evaluated using audiovisual cart. Time spent 45 minutes. Attestations Medical Necessity Statement*: Continued hospitalization for management of NADER Coding Level of Care Code Acute Code for Chg Fwd Diagnoses Acute renal failure N17.9
[2022-09-13] MEDS: atorvastatin 40 mg Tablet 80 MG PO (17:11)
[2022-09-13 17:20] LABS: Glucose Point of Care 155 mg/dL (70-110)
[2022-09-13 17:20] LABS: Glucose Point of Care 143 mg/dL (70-110)
[2022-09-13 20:36] LABS: Glucose Point of Care 79 mg/dL (70-110)
[2022-09-13] MEDS: insulin glargine 100 units/1 mL 20 UNIT SUBCUT (20:46)
--- NOTE | 2022-09-13 21:25 | PM.PN ---
Subjective Subjective: The patient is feeling okay. Has not had any chest pain or palpitations. No recurrence of bradycardia on the monitor. Currently he is in atrial fibrillation with a controlled ventricular response rate. Currently the patient was taking digoxin at home and the digoxin level was found to be 1.0. Medications: Medication Review Details: Current Medications Acetaminophen (Acetaminophen 325 Mg Tablet) 650 mg PO Q6H PRN PRN Reason: Mild/Mod Pain Or Temp >/= 101 Last Admin: 09/13/22 07:18 Dose: 650 mg Albuterol/Ipratropium (Ipratropium-Albuterol 3 Ml Neb) 3 ml INHALATION QID.RESPIRATORY SHIELA Last Admin: 09/13/22 20:31 Dose: Not Given Atorvastatin Calcium (Atorvastatin 40 Mg Tablet) 80 mg PO QPM SHIELA Last Admin: 09/13/22 17:11 Dose: 80 mg Bisacodyl (Bisacodyl 5 Mg Tablet) 10 mg PO DAILY PRN; Protocol PRN Reason: Constipation (see protocol) Budesonide (Budesonide 0.5 Mg/2 Ml Neb) 0.5 mg INHALATION BID.RESPIRATORY SHIELA Last Admin: 09/13/22 20:31 Dose: Not Given Dextrose (Dextrose 50% Syringe 50 Ml) 25 ml IVP ONCE PRN; Protocol PRN Reason: hypoglycemia protocol Dextrose (Dextrose 50% Syringe 50 Ml) 50 ml IVP PRN PRN; Protocol PRN Reason: hypoglycemia protocol Dextrose (Dextrose 50% Syringe 50 Ml) 25 ml IVP ONCE PRN; Protocol PRN Reason: hypoglycemia protocol Dextrose (Dextrose 50% Syringe 50 Ml) 50 ml IVP PRN PRN; Protocol PRN Reason: hypoglycemia protocol Glucagon (Glucagon 1 Mg/Ml Inj 1 Ml) 1 mg IM ONCE PRN; Protocol PRN Reason: Adult Acute Hypoglycemia Prot. Glucagon (Glucagon 1 Mg/Ml Inj 1 Ml) 1 mg IM ONCE PRN; Protocol PRN Reason: Adult Acute Hypoglycemia Prot. Dextrose (D5w) 500 mls @ 100 mls/hr IV ONCE PRN; Protocol PRN Reason: Adult Acute Hypoglycemia Prot Vancomycin HCl 500 mg/ Sodium (Chloride) 100 mls @ 200 mls/hr IV Q24H SHIELA Last Infusion: 09/13/22 10:43 Dose: Infused Piperacillin Sod/Tazobactam (Sod 3.375 gm/ Sodium Chloride) 50 mls @ 12.5 mls/hr IV Q12H SHIELA; Protocol Last Admin: 09/13/22 20:44 Dose: 12.5 mls/hr Dextrose (D5w) 500 mls @ 100 mls/hr IV ONCE PRN; Protocol PRN Reason: Adult Acute Hypoglycemia Prot Iron Sucrose 200 mg/ Sodium (Chloride) 110 mls @ 220 mls/hr IV Q24H [facility] Stop: 09/15/22 10:29 Last Infusion: 09/13/22 13:11 Dose: Infused Insulin Glargine (Insulin Glargine 100 Units/1 Ml) 20 unit SUBCUT BEDTIME [facility] Last Admin: 09/13/22 20:46 Dose: 20 unit Insulin Human Lispro (Insulin Lispro 100 Unit/1 Ml) 0 unit SUBCUT WM&BEDTIME [facility]; Protocol Last Admin: 09/13/22 20:45 Dose: Not Given Ondansetron HCl (Ondansetron 2 Mg/Ml Sdv 2 Ml) 4 mg IVP Q8H PRN PRN Reason: vomiting, or N/V if npo Pantoprazole Sodium (Pantoprazole Dr 40 Mg Tablet) 40 mg PO BID [facility] Last Admin: 09/13/22 17:11 Dose: 40 mg Sodium Bicarbonate (Sodium Bicarbonate 650 Mg Tablet) 1,300 mg PO TID [facility] Last Admin: 09/13/22 20:44 Dose: 1,300 mg Vitals/I&O/Wt Last Vital Signs Temp 97.8 F 09/11/22 16:00 Pulse 83 09/13/22 20:00 Resp 22 H 09/13/22 20:00 BP 152/71 09/13/22 20:00 Pulse Ox 97 09/13/22 20:00 O2 Del Method 09/13/22 11:17 O2 Flow Rate 2 09/13/22 11:17 09/13/22 09/13/22 09/13/22 06:59 14:59 22:59 Intake Total 1050 / 3520 2220 / 2220 Output Total 2900 / 4800 1575 / 1575 Balance -1850 / -1280 2220 / 2220 -1575 / 645 Weight last 48 hrs Weight 152 lb 1.903 oz Weight 146 lb Physical Exam Narrative: GENERAL: The patient is alert and oriented times three. Not in any acute distress. HEENT: Moderate pallor. No icterus or lymphadenopathy.Oral cavity: There are no mucous membrane lesions. NECK: Trachea appears to be central. No masses noted. No JVD or thyromegaly appreciated. RESPIRATORY: Chest is symmetrical. No intercostals muscle retraction or any accessory muscle activation. There is no chest wall tenderness. Breath sounds are heard bilaterally. No rales or rhonchi heard. No evidence of any consolidation. BREASTS: Deferred. HEART: The heart sounds are normal. No S3 or S4. Ejection systolic murmur grade 3 or 6 in the aortic area. No diastolic murmurs. No pericardial rub ABDOMEN: No vessel pulsations or distention. No tenderness. No organomegaly appreciated. Bowel sounds are normally heard. : Deferred. RECTAL: Deferred. LYMPHATIC: No lymphadenopathy noted in the neck. EXTREMITIES: No edema or cyanosis. No clubbing. MUSCULOSKELETAL: No acute joint deformities or swelling SKIN: There are no significant rashes or ecchymosis NEUROPSYCHIATRIC: Alert and oriented to place and person. No focal motor deficits. Urinary Catheter Management: Ortiz: Cath Placed During This Visit: yes Reason for Continuing Indwelling Catheter: Accurate Measurement of Urinary Output in Critically Ill Patients Urinary Catheter Date of Insertion: 09/10/22 Urinary Catheter Time of Insertion: 19:30 Data 09/13/22 04:40 09/13/22 04:40 Micro: Microbiology 09/10/22 19:47 Urine Culture - Final Urine,Clean Catch A&P Assessment and plan (1) Bradycardia: The bradycardia is currently resolved. Possibility related to the electrolyte normalities of renal failure coupled with onboard digoxin. Patient that he is advised not to take the digoxin anymore (2) Acute hyperkalemia: Patient is currently normokalemic. The BUN and the creatinine seems to be improving. (3) Atrial fibrillation: Patient may have underlying sinus node dysfunction. Heart rate seems to be staying in the normal range after the correction of the electrolytes. (4) NADER (acute kidney injury): Kidney function is improving evaluation and management as per the nephrology service (5) HFrEF (heart failure with reduced ejection fraction): The heart failure is currently compensated. May continue on the current medications. (6) Aortic stenosis: Patient has moderate aortic valve stenosis. May not require any further investigation at this point. (7) COPD (chronic obstructive pulmonary disease): Patient is on 24-hour oxygen. Has been using 2.5 L/min by MS at home; currently is on 3 L. May continue on the current measures. (8) Pneumonia: Clinically the patient is stable -clinically has improved. (9) Anemia: May need to consider blood transfusion. Plan patient does not require any further intervention at this point from a cardiac standpoint. Attestations Medical Necessity Statement*: Deferred to the primary Coding Level of Care Code 80011 Diagnoses Bradycardia R00.1 Acute hyperkalemia E87.5 Atrial fibrillation I48.91 NADER (acute kidney injury) N17.9 HFrEF (heart failure with reduced ejection fraction) I50.20 Aortic stenosis I35.0 COPD (chronic obstructive pulmonary disease) J44.9 Pneumonia J18.9 Anemia D64.9
[2022-09-14] VITALS (28 sets, daily range): BP systolic 118–169; BP diastolic 59–82; PULSE 72–101; RESP 16–34; TEMP 36.7–37; O2SAT 88–100
[2022-09-14 05:33] LABS: Eosinophils # 0.1 10^3/uL (0.0-0.8); Eosinophils % 0.8 %; Hematocrit 26.1 % (42.0-52.0); Hemoglobin 8.1 g/dL (11.7-16.6); Lymphocytes # 0.9 10^3/uL (0.8-4.8); Lymphocytes % 11.7 %; Mean Corpuscular Hemoglobin 29.5 pg (28.0-34.0); Mean Corpuscular Volume 94.9 fl (80-94); Mean Platelet Volume 11.5 fL (7.4-10.4); Monocytes # 0.9 10^3/uL (0.2-0.9); Neutrophils # 5.57 10^3/uL (1.8-7.7); Neutrophils % 72.8 %; Nucleated Red Blood Cells % 0 %; Platelet Count 203 10^3/cmm (130-400); Red Blood Count 2.75 10^6/uL (4.1-5.3); Red Cell Distribution Width 16.2 % (12.1-15.1); White Blood Count 7.7 10^3/uL (4.0-10.0)
[2022-09-14 05:57] LABS: Anion Gap 16.8 (5-19); Blood Urea Nitrogen 26 mg/dL (8-23); Calcium 8.5 mg/dL (8.5-10.5); Carbon Dioxide 25 mmol/L (22-29); Chloride 104 mmol/L (98-107); Glucose 52 mg/dL (65-115); Osmolality Calculated 294 mOsm/kg (285-295); Potassium 4.8 mmol/L (3.5-5.1); Sodium 141 mmol/L (136-145)
[2022-09-14 07:11] LABS: Glucose Point of Care 48 mg/dL (70-110)
--- NOTE | 2022-09-14 07:12 | PC.NURSE ---
Morning glucose check resulted at 48. Patient alert and oriented, given apple juice, will recheck glucose per protocol.
[2022-09-14 07:45] LABS: Glucose Point of Care 83 mg/dL (70-110)
[2022-09-14] MEDS: piperacillin-tazobactam 3.375 GM in sodium chloride 0.9% (plus) 50 ML IV (08:16)
[2022-09-14] MEDS: pantoprazole DR 40 mg Tablet PO ×2 (08:16→17:37)
[2022-09-14] MEDS: sodium bicarbonate 650 mg Tablet 1300 MG PO (08:16)
[2022-09-14] MEDS: budesonide 0.5 mg/2 mL Neb INHALATION (09:39)
[2022-09-14] MEDS: albuterol 2.5 mg/3 mL Neb INHALATION ×2 (09:39→12:20)
[2022-09-14] MEDS: ipratropium 0.5 mg/2.5 mL Neb INHALATION ×2 (09:39→12:20)
--- NOTE | 2022-09-14 10:34 | P.PN_ITS ---
Subjective Subjective: wheezing, sob, no edema. feels better. no cp or palps or black Medications: Reviewed: Yes Medication Review Details: Current Medications Acetaminophen (Acetaminophen 325 Mg Tablet) 650 mg PO Q6H PRN PRN Reason: Mild/Mod Pain Or Temp >/= 101 Last Admin: 09/13/22 07:18 Dose: 650 mg Albuterol Sulfate (Albuterol 2.5 Mg/3 Ml Neb) 2.5 mg INHALATION QID.RESPIRATORY SHIELA Last Admin: 09/14/22 09:39 Dose: 2.5 mg Atorvastatin Calcium (Atorvastatin 40 Mg Tablet) 80 mg PO QPM SHIELA Last Admin: 09/13/22 17:11 Dose: 80 mg Bisacodyl (Bisacodyl 5 Mg Tablet) 10 mg PO DAILY PRN; Protocol PRN Reason: Constipation (see protocol) Budesonide (Budesonide 0.5 Mg/2 Ml Neb) 0.5 mg INHALATION BID.RESPIRATORY SHIELA Last Admin: 09/14/22 09:39 Dose: 0.5 mg Dextrose (Dextrose 50% Syringe 50 Ml) 25 ml IVP ONCE PRN; Protocol PRN Reason: hypoglycemia protocol Dextrose (Dextrose 50% Syringe 50 Ml) 50 ml IVP PRN PRN; Protocol PRN Reason: hypoglycemia protocol Dextrose (Dextrose 50% Syringe 50 Ml) 25 ml IVP ONCE PRN; Protocol PRN Reason: hypoglycemia protocol Dextrose (Dextrose 50% Syringe 50 Ml) 50 ml IVP PRN PRN; Protocol PRN Reason: hypoglycemia protocol Glucagon (Glucagon 1 Mg/Ml Inj 1 Ml) 1 mg IM ONCE PRN; Protocol PRN Reason: Adult Acute Hypoglycemia Prot. Glucagon (Glucagon 1 Mg/Ml Inj 1 Ml) 1 mg IM ONCE PRN; Protocol PRN Reason: Adult Acute Hypoglycemia Prot. Dextrose (D5w) 500 mls @ 100 mls/hr IV ONCE PRN; Protocol PRN Reason: Adult Acute Hypoglycemia Prot Vancomycin HCl 500 mg/ Sodium (Chloride) 100 mls @ 200 mls/hr IV Q24H SHIELA Last Infusion: 09/13/22 10:43 Dose: Infused Piperacillin Sod/Tazobactam (Sod 3.375 gm/ Sodium Chloride) 50 mls @ 12.5 mls/hr IV Q12H SHIELA; Protocol Last Admin: 09/14/22 08:16 Dose: 12.5 mls/hr Dextrose (D5w) 500 mls @ 100 mls/hr IV ONCE PRN; Protocol PRN Reason: Adult Acute Hypoglycemia Prot Iron Sucrose 200 mg/ Sodium (Chloride) 110 mls @ 220 mls/hr IV Q24H SHIELA Stop: 09/15/22 10:29 Last Infusion: 09/13/22 13:11 Dose: Infused Insulin Glargine (Insulin Glargine 100 Units/1 Ml) 20 unit SUBCUT BEDTIME SHIELA Last Admin: 09/13/22 20:46 Dose: 20 unit Insulin Human Lispro (Insulin Lispro 100 Unit/1 Ml) 0 unit SUBCUT WM&BEDTIME SHIELA; Protocol Last Admin: 09/14/22 08:10 Dose: Not Given Ipratropium [place] (Ipratropium 0.5 Mg/2.5 Ml Neb) 0.5 mg INHALATION QID.RESPIRATORY SHIELA Last Admin: 09/14/22 09:39 Dose: 0.5 mg Ondansetron HCl (Ondansetron 2 Mg/Ml Sdv 2 Ml) 4 mg IVP Q8H PRN PRN Reason: vomiting, or N/V if npo Pantoprazole Sodium (Pantoprazole Dr 40 Mg Tablet) 40 mg PO BID SHIELA Last Admin: 09/14/22 08:16 Dose: 40 mg Sodium Bicarbonate (Sodium Bicarbonate 650 Mg Tablet) 1,300 mg PO TID SHIELA Last Admin: 09/14/22 08:16 Dose: 1,300 mg Vitals/I&O/Wt Last Vital Signs Temp 98.1 F 09/14/22 08:00 Pulse 82 09/14/22 09:55 Resp 16 09/14/22 09:39 BP 155/70 09/14/22 09:00 Pulse Ox 100 09/14/22 09:39 O2 Del Method 09/14/22 09:39 O2 Flow Rate 2 09/14/22 09:39 09/13/22 09/14/22 09/14/22 22:59 06:59 14:59 Intake Total 160 / 2380 410 / 2790 Output Total 2775 / 2775 1600 / 4375 Balance -2615 / -395 -1190 / -1585 Weight last 48 hrs Weight 68.5 kg Weight 69 kg Physical Exam Narrative: comfortable in bed, ANRD vss heent- nc/at, eomi, anicteric neck supple lungs exp wheezes heart irreg, rate controlled abd soft, nt, nd, + bs ext no edema neuro a,a, o x 3 Urinary Catheter Management: Ortiz: Cath Placed During This Visit: yes Reason for Continuing Indwelling Catheter: Accurate Measurement of Urinary Output in Critically Ill Patients Urinary Catheter Date of Insertion: 09/10/22 Urinary Catheter Time of Insertion: 19:30 Data 09/14/22 04:49 09/14/22 04:49 Micro: Microbiology 09/10/22 19:47 Urine Culture - Final Urine,Clean Catch A&P Assessment and plan (1) NADER (acute kidney injury): 77 yr old man a fib, HFrEF, moderate , copd, pna. 1. CKD stage 3- baseline cr 1.2 mg/dl 2. NADER -prerenal azotemia vs ATN -cr improving- d/c ivf -d/c na bicarb 3. anemia- tsat 6.7 %, ferritin 226- iron and epo 4. dm care per medicine 5. normal phos 6. check vanco trough- keep under 19 seen and examined w/ RN- telehealth visit time spent >30 minutes Plan as above Attestations Medical Necessity Statement*: per medicine Time Spent in Patient Care: 16 - 35 minutes (>than 50% of time spent in counselling and/or direct pt care on unit) . Coding Level of Care Code Acute Code for g Fwd Diagnoses NADER (acute kidney injury) N17.9
[2022-09-14] MEDS: vancomycin 500 MG in sodium chloride 0.9% (plus) 100 ML 200 MG IV (10:56)
[2022-09-14 11:12] LABS: Glucose Point of Care 166 mg/dL (70-110)
[2022-09-14] MEDS: iron sucrose 200 MG in sodium chloride 0.9% (100 ml) 100 ML 220 MG IV (11:35)
[2022-09-14] MEDS: epoetin alfa 10,000 unit/mL INJ 10000 UNIT SUBCUT (11:48)
--- NOTE | 2022-09-14 12:09 | PC.CHAP ---
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 vehicle care specialist visit [] Patient/Family/Request visit [] Outpatient visit [] Follow-up visit [] Physician referral [] Code/Alert [x] Routine visit [] Staff referral [] Actively dying [x] Patient sleeping [] Family support [] [] Out of room [] Palliative care [] [] Receiving care in room [] Pre-surgical visit [] Trauma [] Long length of stay [x] ICU visit [] Other: Relational/Emotional Strength [] Patient feels connected with others/family/visitors/staff [] Distress [] Loneliness/isolation [] Abandonment Spirituality of Patient [] Person of Laxmi [] Attends Religious of their Laxmi [] Believes in Prayer [] Reads Bible or Islam materials [] There are Spiritual issues to be addressed Prep Room Supervisor Interventions [x] Prayer [] Active listening [] Non-anxious presence [] Spiritual/emotional support [] Crisis/trauma care [] Spiritual counseling [] Bereavement support [] Provided bereavement packet [] Provided Bible/devotional materials [] Provided toy/stuffed animal, coloring book to patient or family member [] Provided Communion [] Anointing/[place] [] Salvation [x] Completed spiritual assessment [] Other: Impact on Illness or Injury [] Angry [] Fearful [] Anxious [] Often cries [] Exhaustion [] Unable to work [] Unable to attend amish [] Unable to walk/stand [] Unable to read [] Unable to drive [] Unable to eat/drink [] Unable to sleep [] Unable to be with family [] Patient intubated [] Other: Summary Time spent with patient
[2022-09-14 12:30] LABS: Vancomycin Random 24.2 ug/mL (20.0-40.0)
[2022-09-14] MEDS: insulin lispro 100 unit/1 mL SUBCUT ×2 (12:31→17:37)
--- NOTE | 2022-09-14 14:17 | PM.PN ---
Subjective Subjective: Overnight events noted low blood sugar he was given 3 orange juices servings Discontinued Lantus De-escalate sliding scale to low intensity Currently hemodynamically stable Can be transferred to [facility] We will follow-up with nephro recommendations Telemetry did not show any arrhythmias PVCs noted Vitals/I&O/Wt Last Vital Signs Temp 98.6 F 09/14/22 13:00 Pulse 85 09/14/22 13:00 Resp 30 H 09/14/22 13:00 BP 127/64 09/14/22 13:00 Pulse Ox 97 09/14/22 13:00 O2 Del Method 09/14/22 13:00 O2 Flow Rate 2 09/14/22 12:20 09/13/22 09/14/22 09/14/22 22:59 06:59 14:59 Intake Total 160 / 2380 410 / 2790 500 / 500 Output Total 2775 / 2775 1600 / 4375 Balance -2615 / -395 -1190 / -1585 500 / 500 Weight last 48 hrs Weight 68.5 kg Weight 69 kg Physical Exam Narrative: Patient uses 3 L [id number] at home Awake and alert Euvolemic Abdomen soft Pleasant cooperative Hemodynamically stable Nonfocal neuro exam Pleasant and cooperative Variable S1-S2 Urinary Catheter Management: Ortiz: Cath Placed During This Visit: yes Reason for Continuing Indwelling Catheter: Accurate Measurement of Urinary Output in Critically Ill Patients Urinary Catheter Date of Insertion: 09/10/22 Urinary Catheter Time of Insertion: 19:30 Data 09/14/22 04:49 09/14/22 04:49 Micro: Microbiology 09/10/22 19:47 Urine Culture - Final Urine,Clean Catch A&P Assessment and plan (1) Anemia: (2) Bradycardia: (3) Sepsis: (4) NSTEMI (non-ST elevated myocardial infarction): (5) Diarrhea: (6) Diabetes mellitus: (7) HTN (hypertension): (8) Acute renal failure: (9) HFrEF (heart failure with reduced ejection fraction): (10) Aortic stenosis: (11) COPD (chronic obstructive pulmonary disease): (12) Pneumonia: (13) NADER (acute kidney injury): (14) Acute hyperkalemia: (15) Atrial fibrillation: (16) Acute bacterial conjunctivitis of left eye: Plan Sepsis: Resolved Hyperkalemia, ATN: Creatinine improving, appreciate nephro recommendations Chronic iron deficiency anemia: Hemoglobin is stable Hypomagnesemia: Repleted CHF without acute exacerbation EF 35 to 40% Bioprosthetic mitral valve, diabetes: Low blood sugar episodes overnight, discontinue Lantus, de-escalate to low intensity sliding scale Bradycardia: Drug-related, no arrhythmias noted overnight Placement needed pacemaker Renal diet Full code DVT prophylaxis will be sufficed with low-dose Eliquis Discontinue digoxin Counseling done Asked catalytic case operator to arrange home health services Chronic hypoxia patient uses 3 to 3.5 L of 24/7 Transfer out to [facility] Gastroenteritis. Diarrhea, C. difficile ruled out Discontinue IV antibiotics 3.3 cm infrarenal abdominal aorta no active pain hemodynamically stable Attestations Medical Necessity Statement*: Transfer out to [facility] and Moderate Time for a total of 40 minutes, includes reviewing past or interval history, examining/interviewing patient, placing orders, counseling patient/family/other support, updating patient/family/other support, discussing plan of care with staff, communicating with other healthcare providers, documenting encounter and coordinating care Diagnoses Anemia D64.9 Bradycardia R00.1 Sepsis A41.9 NSTEMI (non-ST elevated myocardial infarction) I21.4 Diarrhea R19.7 Diabetes mellitus E11.9 HTN (hypertension) I10 Acute renal failure N17.9 HFrEF (heart failure with reduced ejection fraction) I50.20 Aortic stenosis I35.0 COPD (chronic obstructive pulmonary disease) J44.9 Pneumonia J18.9 NADER (acute kidney injury) N17.9 Acute hyperkalemia E87.5 Atrial fibrillation I48.91 Acute bacterial conjunctivitis of left eye H10.32
--- NOTE | 2022-09-14 14:54 | P.PN_ITS ---
Subjective Subjective: Patient is feeling okay. His hemoglobin slowly is improving. His functional status is also slowly getting better. Telemetry shows atrial fibrillation with a controlled ventricular response rate. No chest pain or shortness of breath. No bradycardic episodes. Medications: Medication Review Details: Home Medications albuterol sulfate 90 mcg/actuation aerosol inhaler 2 puff inhalation Q4H PRN Shortness Of Breath 07/12/21 [History Confirmed 09/10/22] apixaban 5 mg tablet (Eliquis) 5 mg PO BID 07/12/21 [History Confirmed 09/10/22] atorvastatin 80 mg tablet 80 mg PO QPM 07/12/21 [History Confirmed 09/10/22] cholecalciferol (vitamin D3) 25 mcg (1,000 unit) capsule (Vitamin D3) 25 mcg PO DAILY 07/12/21 [History Confirmed 09/10/22] docusate sodium 100 mg capsule 100 - 200 mg PO DAILY PRN Constipation 07/12/21 [History Confirmed 09/10/22] insulin glargine 100 unit/mL (3 mL) subcutaneous pen (Lantus Solostar U-100 Insulin) 15 unit SUBCUT BID@0630,1830 07/12/21 [History Confirmed 09/10/22] lisinopril 10 mg tablet 5 mg PO DAILY 07/12/21 [History Confirmed 09/10/22] metformin 1,000 mg tablet 1,000 mg PO BID 07/12/21 [History Confirmed 09/10/22] multivitamin 1 tab PO DAILY 07/12/21 [History Confirmed 09/10/22] omeprazole 40 mg capsule,delayed release 40 mg PO BID 07/12/21 [History Co nfirmed 09/10/22] carboxymethylcellulose sodium 1 % eye liquid gel drops (Refresh Liquigel) 1 drp ophthalmic (eye) BID PRN Dry Eye(S) 11/26/21 [History Confirmed 09/10/22] ferrous gluconate 324 mg (38 mg iron) tablet 324 mg PO BID 11/26/21 [History Confirmed 09/10/22] fluticasone 100 mcg-salmeterol 50 mcg/dose blistr powdr for inhalation (Advair Diskus) 1 inh inhalation BID 11/26/21 [History Confirmed 09/10/22] furosemide 40 mg tablet (Lasix) 40 mg PO QAM 11/26/21 [History Confirmed 09/10/22] glipizide 10 mg tablet 20 mg PO BID 11/26/21 [History Confirmed 09/10/22] ipratropium 20 mcg-albuterol 100 mcg/actuation mist for inhalation 1 puff inhalation Q6H PRN Shortness Of Breath 11/26/21 [History Confirmed 09/10/22] prednisolone acetate 1 % eye drops,suspension 1 drp ophthalmic (eye) BID 11/14 [History Confirmed 09/10/22] diltiazem HCl 120 mg capsule,extended release 24 hr 120 mg PO DAILY 30 days #30 caps 06/22/22 [Rx Confirmed 09/10/22] albuterol sulfate 90 mcg/actuation aerosol inhaler 2 inh inhalation Q4H PRN shortness of breath or wheezing #8.5 grams 08/16/22 [Rx Confirmed 09/10/22] Active Medications Acetaminophen (Acetaminophen 325 Mg Tablet) 650 mg PO Q6H PRN PRN Reason: Mild/Mod Pain Or Temp >/= 101 Last Admin: 09/13/22 07:18 Dose: 650 mg Albuterol Sulfate (Albuterol 2.5 Mg/3 Ml Neb) 2.5 mg INHALATION QID.RESPIRATORY SHIELA Last Admin: 09/14/22 12:20 Dose: 2.5 mg Atorvastatin Calcium (Atorvastatin 40 Mg Tablet) 80 mg PO QPM SHIELA Last Admin: 09/13/22 17:11 Dose: 80 mg Bisacodyl (Bisacodyl 5 Mg Tablet) 10 mg PO DAILY PRN; Protocol PRN Reason: Constipation (see protocol) Budesonide (Budesonide 0.5 Mg/2 Ml Neb) 0.5 mg INHALATION BID.RESPIRATORY SHIELA Last Admin: 09/14/22 09:39 Dose: 0.5 mg Dextrose (Dextrose 50% Syringe 50 Ml) 25 ml IVP ONCE PRN; Protocol PRN Reason: hypoglycemia protocol Dextrose (Dextrose 50% Syringe 50 Ml) 50 ml IVP PRN PRN; Protocol PRN Reason: hypoglycemia protocol Dextrose (Dextrose 50% Syringe 50 Ml) 25 ml IVP ONCE PRN; Protocol PRN Reason: hypoglycemia protocol Dextrose (Dextrose 50% Syringe 50 Ml) 50 ml IVP PRN PRN; Protocol PRN Reason: hypoglycemia protocol Glucagon (Glucagon 1 Mg/Ml Inj 1 Ml) 1 mg IM ONCE PRN; Protocol PRN Reason: Adult Acute Hypoglycemia Prot. Glucagon (Glucagon 1 Mg/Ml Inj 1 Ml) 1 mg IM ONCE PRN; Protocol PRN Reason: Adult Acute Hypoglycemia Prot. Dextrose (D5w) 500 mls @ 100 mls/hr IV ONCE PRN; Protocol PRN Reason: Adult Acute Hypoglycemia Prot Vancomycin HCl 500 mg/ Sodium (Chloride) 100 mls @ 200 mls/hr IV Q24H SHIELA Last Infusion: 09/14/22 11:38 Dose: Infused Piperacillin Sod/Tazobactam (Sod 3.375 gm/ Sodium Chloride) 50 mls @ 12.5 mls/ hr IV Q12H SHIELA; Protocol Last Infusion: 09/14/22 12:22 Dose: Infused Dextrose (D5w) 500 mls @ 100 mls/hr IV ONCE PRN; Protocol PRN Reason: Adult Acute Hypoglycemia Prot Iron Sucrose 200 mg/ Sodium (Chloride) 110 mls @ 220 mls/hr IV Q24H SHIELA Stop: 09/15/22 10:29 Last Infusion: 09/14/22 12:22 Dose: Infused Insulin Glargine (Insulin Glargine 100 Units/1 Ml) 20 unit SUBCUT BEDTIME SHIELA Last Admin: 09/13/22 20:46 Dose: 20 unit Insulin Human Lispro (Insulin Lispro 100 Unit/1 Ml) 0 unit SUBCUT WM&BEDTIME SHIELA; Protocol Last Admin: 09/14/22 12:31 Dose: 6 unit Ipratropium [place] (Ipratropium 0.5 Mg/2.5 Ml Neb) 0.5 mg INHALATION QID.RESPIRATORY SHIELA Last Admin: 09/14/22 12:20 Dose: 0.5 mg Ondansetron HCl (Ondansetron 2 Mg/Ml Sdv 2 Ml) 4 mg IVP Q8H PRN PRN Reason: vomiting, or N/V if npo Pantoprazole Sodium (Pantoprazole Dr 40 Mg Tablet) 40 mg PO BID SHIELA Last Admin: 09/14/22 08:16 Dose: 40 mg Vitals/I&O/Wt Last Vital Signs Temp 98.6 F 09/14/22 13:00 Pulse 82 09/14/22 14:25 Resp 30 H 09/14/22 13:00 BP 127/64 09/14/22 13:00 Pulse Ox 97 09/14/22 13:00 O2 Del Method 09/14/22 13:00 O2 Flow Rate 2 09/14/22 12:20 09/13/22 09/14/22 09/14/22 22:59 06:59 14:59 Intake Total 160 / 2380 410 / 2790 500 / 500 Output Total 2775 / 2775 1600 / 4375 Balance -2615 / -395 -1190 / -1585 500 / 500 Weight last 48 hrs Weight 151 lb 0.266 oz Weight 152 lb 1.903 oz Physical Exam Narrative: GENERAL: The patient is alert and oriented times three. Not in any acute distress. HEENT: Moderate pallor. No icterus or lymphadenopathy.Oral cavity: There are no mucous membrane lesions. NECK: Trachea appears to be central. No masses noted. No JVD or thyromegaly appreciated. RESPIRATORY: Chest is symmetrical. No intercostals muscle retraction or any accessory muscle activation. There is no chest wall tenderness. Breath sounds are heard bilaterally. No rales or rhonchi heard. No evidence of any consolidation. BREASTS: Deferred. HEART: The heart sounds are normal. No S3 or S4. No significant murmurs. No pericardial rub ABDOMEN: No vessel pulsations or distention. No tenderness. No organomegaly appreciated. Bowel sounds are normally heard. : Deferred. RECTAL: Deferred. LYMPHATIC: No lymphadenopathy noted in the neck. EXTREMITIES: No edema or cyanosis. No clubbing. MUSCULOSKELETAL: No acute joint deformities or swelling SKIN: There are no significant rashes or ecchymosis NEUROPSYCHIATRIC: The patient is alert and oriented x3. Appears to be in a good mood. No tremors or rigidity noted. Urinary Catheter Management: Ortiz: Cath Placed During This Visit: yes Reason for Continuing Indwelling Catheter: Accurate Measurement of Urinary Output in Critically Ill Patients Urinary Catheter Date of Insertion: 09/10/22 Urinary Catheter Time of Insertion: 19:30 Data 09/14/22 04:49 09/14/22 04:49 Other Labs: Laboratory Last Values WBC 7.7 10^3/uL (4.0-10.0) 09/14/22 04:49 RBC 2.75 10^6/uL (4.1-5.3) L 09/14/22 04:49 Hgb 8.1 g/dL (11.7-16.6) L 09/14/22 04:49 Hct 26.1 % (42.0-52.0) L 09/14/22 04:49 MCV 94.9 fl (80-94) H 09/14/22 04:49 MCH 29.5 pg (28.0-34.0) 09/14/22 04:49 MCHC 31.0 g/dL (30.0-36.0) 09/14/22 04:49 RDW 16.2 % (12.1-15.1) H 09/14/22 04:49 Plt Count 203 10^3/cmm (130-400) 09/14/22 04:49 MPV 11.5 fL (7.4-10.4) H 09/14/22 04:49 Neut % (Auto) 72.8 % 09/14/22 04:49 Lymph % (Auto) 11.7 % 09/14/22 04:49 [place] % (Auto) 12.0 % 09/14/22 04:49 Eos % (Auto) 0.8 % 09/14/22 04:49 Baso % (Auto) 0.0 % 09/14/22 04:49 Neut # (Auto) 5.57 10^3/uL (1.8-7.7) 09/14/22 04:49 Lymph # (Auto) 0.9 10^3/uL (0.8-4.8) 09/14/22 04:49 [place] # (Auto) 0.9 10^3/uL (0.2-0.9) 09/14/22 04:49 Eos # (Auto) 0.1 10^3/uL (0.0-0.8) 09/14/22 04:49 Baso # (Auto) 0.0 10^3/uL (0.0-0.1) 09/14/22 04:49 Nucleated RBC % (auto) 0 % 09/14/22 04:49 Nucleated RBCs # 0.0 /100WBC 09/14/22 04:49 PT 17.50 SECONDS (12.1-14.9) H 09/11/22 02:38 INR 1.39 (0.8-1.2) H 09/11/22 02:38 APTT 35.4 SECONDS (23.9-36.7) 09/11/22 02:38 Specimen Type Arterial 09/11/22 07:53 Sample Site Radial, right 09/11/22 07:53 ABG pH 7.49 (7.35-7.45) H 09/11/22 07:53 ABG pCO2 30.1 mmHg (35-45) L 09/11/22 07:53 ABG pO2 97.2 mmHg (80.0-100.0) 09/11/22 07:53 ABG HCO3 22.6 mmol/L (22-26) 09/11/22 07:53 ABG O2 Saturation 99.5 09/11/22 07:53 ABG Base Excess -0.5 mmol/L (-2.0-2.0) 09/11/22 07:53 Lei Test Pos 09/11/22 07:53 A-a O2 Gradient 2.0 mmHg (5-10) L 09/11/22 07:53 Hematocrit 24.7 % (42-52) L 09/11/22 07:53 Hgb O2 Saturation 97.4 % (95-100) 09/11/22 07:53 Carboxyhemoglobin 1.9 %THgb (0.4-20.1) 09/11/22 07:53 Methemoglobin 0.3 % (0.4-1.5) L 09/11/22 07:53 Total Hemoglobin 8.1 g/dL (14-18) L 09/11/22 07:53 Sodium 131.0 mmol/L (131-143) 09/11/22 07:53 Potassium 5.1 mmol/L (3.5-5.0) H 09/11/22 07:53 Glucose 339.0 mg/dL (70-115) H 09/11/22 07:53 Ionized Calcium 1.1 mmol/L (1.1-1.4) 09/11/22 07:53 O2 Delivery Device Nc 09/11/22 07:53 O2 Liters/Min 2.0 % 09/11/22 07:53 FiO2 36.0 % 09/10/22 17:28 Net [employer] Developer ID Cak 09/11/22 07:53 Sodium 141 mmol/L (136-145) 09/14/22 04:49 Potassium 4.8 mmol/L (3.5-5.1) 09/14/22 04:49 Chloride 104 mmol/L (98-107) 09/14/22 04:49 Carbon Dioxide 25 mmol/L (22-29) 09/14/22 04:49 Anion Gap 16.8 (5-19) 09/14/22 04:49 BUN 26 mg/dL (8-23) H 09/14/22 04:49 Creatinine 2.9 mg/dL (0.7-1.2) H 09/14/22 04:49 GFR Calculation Not Reportable 09/14/22 04:49 Glucose 52 mg/dL (65-115) L 09/14/22 04:49 POC Glucose 166 mg/dL (70-110) H 09/14/22 11:09 Calculated Osmolality 294 mOsm/kg (285-295) 09/14/22 04:49 Lactate 2.3 mmol/L (0.5-2.2) H 09/10/22 17:41 Calcium 8.5 mg/dL (8.5-10.5) 09/14/22 04:49 Phosphorus 3.9 mg/dL (2.5-4.5) 09/13/22 04:40 Magnesium 2.1 mg/dL (1.7-2.3) 09/13/22 04:40 Iron 17 ug/dL (59-158) L 09/11/22 13:40 TIBC 251 mcg/dl 09/11/22 13:40 % Saturation 6.7 % (20-50) L 09/11/22 13:40 Unsat Iron Binding 234 ug/dL (112-347) 09/11/22 13:40 Ferritin 226 ng/mL (30-400) 09/11/22 13:40 Total Bilirubin 0.7 mg/dL (0.15-1.2) 09/10/22 17:41 AST 27 U/L (0-40) 09/10/22 17:41 ALT 10 U/L (0-41) 09/10/22 17:41 Alkaline Phosphatase 82 U/L (40-130) 09/10/22 17:41 Troponin T Baseline 120 ng/L (0-15) H* 09/10/22 17:41 Troponin T 120 Minute 111.3 ng/L (0-15) H 09/10/22 19:20 Delta Troponin T -8.7 ABS# (0-10) L 09/10/22 19:20 Troponin T Hi Sens 6Hr 105.8 ng/L (0-15) H 09/10/22 23:33 Troponin T Hi Sens 6Hr Delta -14.2 ng/L (0-12) L 09/10/22 23:33 NT-Pro-B Natriuret Pep 7948 pg/mL (0-450) H 09/10/22 17:41 Total Protein 6.7 g/dL (6.6-8.7) 09/10/22 17:41 Albumin 4.4 g/dL (3.5-5.2) 09/10/22 17:41 Globulin 2.3 g/dL (1.3-4.6) 09/10/22 17:41 Lipase 43 U/L (13-60) 09/10/22 17:41 Procalcitonin 6.16 ng/mL (0-0.5) H 09/11/22 02:38 TSH 3.22 uIU/mL (0.27-4.20) 09/10/22 17:41 Urine Color Yellow (Yellow) 09/10/22 19:17 Urine Appearance Clear (CLEAR) 09/10/22 19:17 Urine pH 5 (5-7) 09/10/22 19:17 Ur Specific [place] 1.020 (1.005-1.030) 09/10/22 19:17 Urine Protein 1+ (Negative) H 09/10/22 19:17 Urine Glucose (UA) Norm (Normal) 09/10/22 19:17 Urine Ketones Negative (Negative) 09/10/22 19:17 Urine Blood 3+ (Negative) H 09/10/22 19:17 Urine Nitrate Negative (Negative) 09/10/22 19:17 Urine Bilirubin 1+ (Negative) H 09/10/22 19:17 Urine Urobilinogen Norm mg/dL (Negative) 09/10/22 19:17 Ur Leukocyte Esterase Negative (Negative) 09/10/22 19:17 Urine RBC 0-4 /hpf (0-2) H 09/10/22 19:17 Urine WBC 0-4 /hpf (0-5) H 09/10/22 19:17 Ur Squamous Epith Cells 0-4 /hpf (0-5) H 09/10/22 19:17 Amorphous Sediment Not Reportable 09/10/22 19:17 Urine Bacteria Trace /hpf (NONE) 09/10/22 19:17 U Random Total Protein 273 mg/dL 09/11/22 Unknown Ur Random Sodium 64 mmol/L 09/11/22 Unknown Urine Creatinine 128 mg/dL (39-259) 09/11/22 00:05 Vancomycin Trough 13.0 ug/mL (10-15) 09/14/22 08:57 Random Vancomycin 24.2 ug/mL (20.0-40.0) 09/14/22 11:55 Digoxin 1.0 ng/mL (0.6-1.2) 09/11/22 13:40 Coronavirus 229E (PCR) Not detected (NOT DETECT) 09/10/22 17:55 SARS-CoV-2 (PCR) Not detected (NOT DETECT) 09/10/22 17:55 Blood Type O Negative 09/12/22 21:00 Rho(D) Type Negative 09/12/22 21:00 Antibody Screen Positive 09/12/22 21:00 Antibody Identification Anti-Fya 09/12/22 21:00 Antigen Identification Fya Antigen - NEGATIVE 09/12/22 21:00 Crossmatch See Detail 09/12/22 21:00 A&P Assessment and plan (1) Bradycardia: The bradycardia is currently resolved. Possibility related to the electrolyte normalities of renal failure coupled with onboard digoxin. Patient that he is advised not to take the digoxin anymore (2) Atrial fibrillation: Patient may have underlying sinus node dysfunction. Heart rate seems to be staying in the normal range after the correction of the electrolytes. (3) NADER (acute kidney injury): Kidney function is improving; evaluation and management as per the nephrology service (4) HFrEF (heart failure with reduced ejection fraction): The heart failure is currently compensated. May continue on the current medications. (5) Aortic stenosis: Patient has moderate aortic valve stenosis. May not require any further investigation at this point. (6) COPD (chronic obstructive pulmonary disease): Patient seems to be stable. He is on oxygen supplement which may be continued. (7) Pneumonia: Clinically the patient is stable -clinically has improved. (8) Anemia: The anemia seems to be improving. Management as per the primary Plan patient does not require any further intervention at this point from a cardiac standpoint. Attestations Medical Necessity Statement*: Deferred to the primary Coding Level of Care Code 64573 Diagnoses Bradycardia R00.1 Atrial fibrillation I48.91 NADER (acute kidney injury) N17.9 HFrEF (heart failure with reduced ejection fraction) I50.20 Aortic stenosis I35.0 COPD (chronic obstructive pulmonary disease) J44.9 Pneumonia J18.9 Anemia D64.9
[2022-09-14 17:28] LABS: Glucose Point of Care 171 mg/dL (70-110)
[2022-09-14] MEDS: apixaban 5 mg Tablet 2.5 MG PO (17:36)
[2022-09-14 22:16] LABS: Glucose Point of Care 210 mg/dL (70-110)
--- NOTE | 2022-09-14 22:39 | PC.NURSE ---
Report called to [facility]. Pt transferring to room 277.
[2022-09-15] VITALS (7 sets, daily range): BP systolic 130–157; BP diastolic 56–77; PULSE 51–91; RESP 16–18; TEMP 36.4–36.7; O2SAT 94–100; BMI 23.7
[2022-09-15 01:11] LABS: Basophils % 0.1 %; Eosinophils # 0.1 10^3/uL (0.0-0.8); Eosinophils % 0.6 %; Hematocrit 26.7 % (42.0-52.0); Hemoglobin 8.1 g/dL (11.7-16.6); Lymphocytes # 0.7 10^3/uL (0.8-4.8); Lymphocytes % 8.8 %; Mean Corpuscular HGB Conc 30.3 g/dL (30.0-36.0); Mean Corpuscular Hemoglobin 29.2 pg (28.0-34.0); Mean Corpuscular Volume 96.4 fl (80-94); Mean Platelet Volume 11.1 fL (7.4-10.4); Monocytes # 0.9 10^3/uL (0.2-0.9); Monocytes % 11.9 %; Neutrophils # 5.79 10^3/uL (1.8-7.7); Neutrophils % 75.4 %; Nucleated Red Blood Cells % 0 %; Platelet Count 187 10^3/cmm (130-400); Red Blood Count 2.77 10^6/uL (4.1-5.3); Red Cell Distribution Width 16.1 % (12.1-15.1); White Blood Count 7.7 10^3/uL (4.0-10.0)
[2022-09-15 01:41] LABS: Anion Gap 17.8 (5-19); Blood Urea Nitrogen 23 mg/dL (8-23); Calcium 8.7 mg/dL (8.5-10.5); Carbon Dioxide 21 mmol/L (22-29); Chloride 104 mmol/L (98-107); Glucose 186 mg/dL (65-115); Osmolality Calculated 293 mOsm/kg (285-295); Potassium 5.8 mmol/L (3.5-5.1); Sodium 137 mmol/L (136-145)
[2022-09-15 05:43] LABS: Glucose Point of Care 157 mg/dL (70-110)
--- NOTE | 2022-09-15 06:40 | PM.DCS ---
Discharge Providers Date of Admission: 09/10/22 22:52 Date of Discharge: September 15, 2022 Attending Provider at Admission: Yung Morrison MD Attending Provider at Discharge: Asya Giron MD Primary Care Provider: Paola Moore MD Diagnoses at Discharge Discharge Diagnosis (1) Bradycardia: Status: Acute (2) Atrial fibrillation: Status: Acute (3) NADER (acute kidney injury): Status: Acute (4) HFrEF (heart failure with reduced ejection fraction): Status: Acute (5) Aortic stenosis: Status: Acute (6) COPD (chronic obstructive pulmonary disease): Status: Acute (7) Pneumonia: Status: Acute (8) Anemia: Status: Acute Reason for Visit Reason for Visit: RESPIRATORY DISTRESS Hospital Course Hospital Course 77 year old male with PMH of ?COPD, atrial fibrillation, coronary artery disease, diabetes mellitus, hypertension, ischemic cardiomyopathy, moderate aortic stenosis, patient likely has underlying sick sinus syndrome, was according to patient he does have episodes of bradycardia event at home, came in with abdominal pain and diarrhea. Initially there was concern for sepsis however stool cultures negative, blood cultures are negative so far, he was initially treated with broad-spectrum antibiotics,, there was no source of infection identified, electrolyte abnormality and lactic acidemia was related to hypovolemia due to diarrhea. He has concern for sick sinus syndrome with bradycardia with underlying atrial flutter rhythm, cardiology was consulted who did not recommend pacemaker placement because of his severe electrolyte abnormality and dehydration. Once electrolytes were replenished his heart rate remained stable in 70s to 80s, blood pressure remained stable as well. He does show atrial flutter rhythm, he does have moderate aortic valve stenosis, chronic kidney disease baseline creatinine around 1.5, patient is unfortunately suffering from polypharmacy, he was mistakenly taking digoxin which was discontinued in the past, digoxin levels were detected during this hospitalization, that would explain his nausea, vomiting, electrolyte abnormality and bradycardia. He was not given DigiFab. Home health services arranged because patient needs extensive counseling regarding his medications. Importance of taking right medication was reiterated multiple times. No need of antibiotics at the time of discharge. Nephrology was consulted for ATN, patient developed oliguric ATN initially and then transition to polyuric phase, he did not become hypotensive, he was given multiple doses of iron for iron deficiency anemia. Chronic anemia hemoglobin remained stable. Patient experienced hypoglycemia in the hospital, we will decrease the dose of Lantus to 10 units at bedtime only, discontinue metformin for worsening of kidney function, decrease the dose of Eliquis to 2.5 mg twice a day because of creatinine clearance, hold Lasix for next 2 to 3 days Discontinue Ortiz catheter before discharge Home health services to be arranged Physical Exam Narrative: Pleasant and cooperative Variable S1-S2 Abdomen soft No signs of edema Patient at baseline uses 3 L of oxygen / Urinary Catheter Management: Ortiz: Cath Placed During This Visit: yes Reason for Continuing Indwelling Catheter: Accurate Measurement of Urinary Output in Critically Ill Patients Urinary Catheter Date of Insertion: 09/10/22 Urinary Catheter Time of Insertion: 19:30 Discharge Data Studies Completed and Pending Completed Studies During Hospitalization Category Date Time Status CT chest abdomen pelvis [[place] [id number] Cat Scan 09/10/22 18:55 Completed ] Stat XR chest 1V portable [id number] Stat Exams 09/10/22 17:29 Completed US renal BI* [id number] Routine Ultrasound 09/11/22 23:14 Completed Pending at discharge Category Date Time Status Antibody Identification Routine Lab 09/12/22 21:00 Results Antigen Typing Patient Routine Lab 09/12/22 21:00 Results Blood Culture Stat Lab 09/10/22 18:25 Results Fecal Occult Blood [Immunochemical Fecal OCB] Routine Lab 09/12/22 12:11 Uncollected Leukocyte Reduced RBC Routine Lab 09/12/22 21:00 Results Sputum Culture and Gram Stain Routine Lab 09/14/22 09:45 Received Type and Screen Routine Lab 09/12/22 21:00 Results Vancomycin Random AM LABS Lab 09/16/22 04:00 Ordered Vancomycin Random AM LABS Lab 09/17/22 04:00 Ordered Radiology Impressions Chest X-Ray 09/10/22 17:29 IMPRESSION: 1. Retrocardiac consolidation that may be secondary to atelectasis or in the appropriate clinical setting, pneumonia. 2. A layering small left pleural effusion or pleural thickening, not significantly changed from the comparison examinations. ADDENDUM: 09/10/221944 Findings were discussed with Cornell Hernandez at 09/10/2022 7:43 PM TRANSACTION ADVISORY SERVICES MANAGER. Chest/Abdomen/Pelvis CT 09/10/22 18:55 IMPRESSION: 1. Left retrocardiac and lingular patchy consolidation that in the appropriate clinical setting, may represent pneumonia. Aspiration may present a similar picture. 2. Peribronchial thickening/inflammatory changes noted in the right upper lobe consistent with a focal area bronchitis/pneumonitis. 3. A small left pleural effusion. 4. Severe coronary artery atherosclerotic disease, status post surgical revascularization and mitral valve replacement. IMPRESSION: 1. Findings consistent with gastroenteritis and a diarrheal state. 2. Moderate diverticulosis of the left colon without acute diverticulitis. 3. 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 Renal Ultrasound 09/11/22 23:14 IMPRESSION: 1. No hydronephrosis or solid mass. 2. Stable 2.3 cm RIGHT renal cyst. Laboratory Results WBC 7.7 10^3/uL (4.0-10.0) 09/15/22 01:02 RBC 2.77 10^6/uL (4.1-5.3) L 09/15/22 01:02 Hgb 8.1 g/dL (11.7-16.6) L 09/15/22 01:02 Hct 26.7 % (42.0-52.0) L 09/15/22 01:02 MCV 96.4 fl (80-94) H 09/15/22 01:02 MCH 29.2 pg (28.0-34.0) 09/15/22 01:02 MCHC 30.3 g/dL (30.0-36.0) 09/15/22 01:02 RDW 16.1 % (12.1-15.1) H 09/15/22 01:02 Plt Count 187 10^3/cmm (130-400) 09/15/22 01:02 MPV 11.1 fL (7.4-10.4) H 09/15/22 01:02 Neut % (Auto) 75.4 % 09/15/22 01:02 Lymph % (Auto) 8.8 % 09/15/22 01:02 [place] % (Auto) 11.9 % 09/15/22 01:02 Eos % (Auto) 0.6 % 09/15/22 01:02 Baso % (Auto) 0.1 % 09/15/22 01:02 Neut # (Auto) 5.79 10^3/uL (1.8-7.7) 09/15/22 01:02 Lymph # (Auto) 0.7 10^3/uL (0.8-4.8) L 09/15/22 01:02 [place] # (Auto) 0.9 10^3/uL (0.2-0.9) 09/15/22 01:02 Eos # (Auto) 0.1 10^3/uL (0.0-0.8) 09/15/22 01:02 Baso # (Auto) 0.0 10^3/uL (0.0-0.1) 09/15/22 01:02 Nucleated RBC % (auto) 0 % 09/15/22 01:02 Nucleated RBCs # 0.0 /100WBC 09/15/22 01:02 PT 17.50 SECONDS (12.1-14.9) H 09/11/22 02:38 INR 1.39 (0.8-1.2) H 09/11/22 02:38 APTT 35.4 SECONDS (23.9-36.7) 09/11/22 02:38 Specimen Type Arterial 09/11/22 07:53 Sample Site Radial, right 09/11/22 07:53 ABG pH 7.49 (7.35-7.45) H 09/11/22 07:53 ABG pCO2 30.1 mmHg (35-45) L 09/11/22 07:53 ABG pO2 97.2 mmHg (80.0-100.0) 09/11/22 07:53 ABG HCO3 22.6 mmol/L (22-26) 09/11/22 07:53 ABG O2 Saturation 99.5 09/11/22 07:53 ABG Base Excess -0.5 mmol/L (-2.0-2.0) 09/11/22 07:53 Lei Test Pos 09/11/22 07:53 A-a O2 Gradient 2.0 mmHg (5-10) L 09/11/22 07:53 Hematocrit 24.7 % (42-52) L 09/11/22 07:53 Hgb O2 Saturation 97.4 % (95-100) 09/11/22 07:53 Carboxyhemoglobin 1.9 %THgb (0.4-20.1) 09/11/22 07:53 Methemoglobin 0.3 % (0.4-1.5) L 09/11/22 07:53 Total Hemoglobin 8.1 g/dL (14-18) L 09/11/22 07:53 Sodium 131.0 mmol/L (131-143) 09/11/22 07:53 Potassium 5.1 mmol/L (3.5-5.0) H 09/11/22 07:53 Glucose 339.0 mg/dL (70-115) H 09/11/22 07:53 Ionized Calcium 1.1 mmol/L (1.1-1.4) 09/11/22 07:53 O2 Delivery Device Nc 09/11/22 07:53 O2 Liters/Min 2.0 % 09/11/22 07:53 FiO2 36.0 % 09/10/22 17:28 Eyelet Riveter ID Cak 09/11/22 07:53 Sodium 137 mmol/L (136-145) 09/15/22 01:02 Potassium 5.8 mmol/L (3.5-5.1) H 09/15/22 01:02 Chloride 104 mmol/L (98-107) 09/15/22 01:02 Carbon Dioxide 21 mmol/L (22-29) L 09/15/22 01:02 Anion Gap 17.8 (5-19) 09/15/22 01:02 BUN 23 mg/dL (8-23) 09/15/22 01:02 Creatinine 2.3 mg/dL (0.7-1.2) H 09/15/22 01:02 GFR Calculation Not Reportable 09/15/22 01:02 Glucose 186 mg/dL (65-115) H 09/15/22 01:02 POC Glucose 157 mg/dL (70-110) H 09/15/22 05:33 Calculated Osmolality 293 mOsm/kg (285-295) 09/15/22 01:02 Lactate 2.3 mmol/L (0.5-2.2) H 09/10/22 17:41 Calcium 8.7 mg/dL (8.5-10.5) 09/15/22 01:02 Phosphorus 3.9 mg/dL (2.5-4.5) 09/13/22 04:40 Magnesium 2.1 mg/dL (1.7-2.3) 09/13/22 04:40 Iron 17 ug/dL (59-158) L 09/11/22 13:40 TIBC 251 mcg/dl 09/11/22 13:40 % Saturation 6.7 % (20-50) L 09/11/22 13:40 Unsat Iron Binding 234 ug/dL (112-347) 09/11/22 13:40 Ferritin 226 ng/mL (30-400) 09/11/22 13:40 Total Bilirubin 0.7 mg/dL (0.15-1.2) 09/10/22 17:41 AST 27 U/L (0-40) 09/10/22 17:41 ALT 10 U/L (0-41) 09/10/22 17:41 Alkaline Phosphatase 82 U/L (40-130) 09/10/22 17:41 Troponin T Baseline 120 ng/L (0-15) H* 09/10/22 17:41 Troponin T 120 Minute 111.3 ng/L (0-15) H 09/10/22 19:20 Delta Troponin T -8.7 ABS# (0-10) L 09/10/22 19:20 Troponin T Hi Sens 6Hr 105.8 ng/L (0-15) H 09/10/22 23:33 Troponin T Hi Sens 6Hr Delta -14.2 ng/L (0-12) L 09/10/22 23:33 NT-Pro-B Natriuret Pep 7948 pg/mL (0-450) H 09/10/22 17:41 Total Protein 6.7 g/dL (6.6-8.7) 09/10/22 17:41 Albumin 4.4 g/dL (3.5-5.2) 09/10/22 17:41 Globulin 2.3 g/dL (1.3-4.6) 09/10/22 17:41 Lipase 43 U/L (13-60) 09/10/22 17:41 Procalcitonin 6.16 ng/mL (0-0.5) H 09/11/22 02:38 TSH 3.22 uIU/mL (0.27-4.20) 09/10/22 17:41 Urine Color Yellow (Yellow) 09/10/22 19:17 Urine Appearance Clear (CLEAR) 09/10/22 19:17 Urine pH 5 (5-7) 09/10/22 19:17 Ur Specific [place] 1.020 (1.005-1.030) 09/10/22 19:17 Urine Protein 1+ (Negative) H 09/10/22 19:17 Urine Glucose (UA) Norm (Normal) 09/10/22 19:17 Urine Ketones Negative (Negative) 09/10/22 19:17 Urine Blood 3+ (Negative) H 09/10/22 19:17 Urine Nitrate Negative (Negative) 09/10/22 19:17 Urine Bilirubin 1+ (Negative) H 09/10/22 19:17 Urine Urobilinogen Norm mg/dL (Negative) 09/10/22 19:17 Ur Leukocyte Esterase Negative (Negative) 09/10/22 19:17 Urine RBC 0-4 /hpf (0-2) H 09/10/22 19:17 Urine WBC 0-4 /hpf (0-5) H 09/10/22 19:17 Ur Squamous Epith Cells 0-4 /hpf (0-5) H 09/10/22 19:17 Amorphous Sediment Not Reportable 09/10/22 19:17 Urine Bacteria Trace /hpf (NONE) 09/10/22 19:17 U Random Total Protein 273 mg/dL 09/11/22 Unknown Ur Random Sodium 64 mmol/L 09/11/22 Unknown Urine Creatinine 128 mg/dL (39-259) 09/11/22 00:05 Vancomycin Trough 13.0 ug/mL (10-15) 09/14/22 08:57 Random Vancomycin 14.0 ug/mL (20.0-40.0) L 09/15/22 01:02 Digoxin 1.0 ng/mL (0.6-1.2) 09/11/22 13:40 Coronavirus 229E (PCR) Not detected (NOT DETECT) 09/10/22 17:55 SARS-CoV-2 (PCR) Not detected (NOT DETECT) 09/10/22 17:55 Blood Type O Negative 09/12/22 21:00 Rho(D) Type Negative 09/12/22 21:00 Antibody Screen Positive 09/12/22 21:00 Antibody Identification Anti-Fya 09/12/22 21:00 Antigen Identification Fya Antigen - NEGATIVE 09/12/22 21:00 Crossmatch See Detail 09/12/22 21:00 Vitals Last Vital Signs Temp 98.0 F 09/15/22 04:00 Pulse 51 L 09/15/22 04:00 Resp 17 09/15/22 04:00 BP 157/64 09/15/22 04:00 Pulse Ox 98 09/15/22 04:00 O2 Del Method 09/15/22 04:00 O2 Flow Rate 3 09/15/22 00:00 Discharge Plan Discharge Patient Disposition: Home Health Service Condition: Stable Prescriptions: New amlodipine 10 mg tablet 10 mg PO DAILY Qty: 30 2RF hydralazine 25 mg tablet 25 mg PO BID Qty: 60 2RF Continued multivitamin Tablet 1 tab PO DAILY omeprazole 40 mg Capsule,Delayed Release(Dr/Ec) 40 mg PO BID docusate sodium 100 mg Capsule 100 - 200 mg PO DAILY PRN (Reason: Constipation) albuterol sulfate 90 mcg/actuation Hfa Aerosol Inhaler 2 puff INHALATION Q4H PRN (Reason: Shortness Of Breath) cholecalciferol (vitamin D3) [Vitamin D3] 25 mcg (1,000 unit) Capsule 25 mcg PO DAILY prednisolone acetate 1 % Drops,Suspension 1 drp ophthalmic (eye) BID Rx Instructions: left eye fluticasone propion-salmeterol [Advair Diskus] 100-50 mcg/dose Blister With Device 1 inh INHALATION BID carboxymethylcellulose sodium [Refresh Liquigel] 1 % Drops, Liquid Gel 1 drp OPHTHALMIC (EYE) BID PRN (Reason: Dry Eye(S)) ferrous gluconate 324 mg (38 mg iron) Tablet 324 mg PO BID ipratropium-albuterol 20-100 mcg/actuation Mist 1 puff INHALATION Q6H PRN (Reason: Shortness Of Breath) albuterol sulfate 90 mcg/actuation HFA aerosol inhaler 2 inh inhalation Q4H PRN (Reason: shortness of breath or wheezing) Qty: 8.5 0RF Changed Eliquis 5 mg Tablet 2.5 mg PO BID Qty: 30 0RF insulin glargine [Lantus Solostar U-100 Insulin] 100 unit/mL (3 mL) Insulin Pen 10 unit SUBCUT BEDTIME Qty: 15 0RF Held furosemide [Lasix] 40 mg Tablet 40 mg PO QAM Hold Instructions: Resume on 09/17/22. Discontinued metformin 1,000 mg Tablet 1,000 mg PO BID Hold Instructions: Resume on 07/06/22. lisinopril 10 mg Tablet 5 mg PO DAILY atorvastatin 80 mg Tablet 80 mg PO QPM glipizide 10 mg Tablet 20 mg PO BID diltiazem HCl 120 mg Capsule,Extended Release 24hr 120 mg PO DAILY 30 Days Qty: 30 2RF Discharge Orders: Discharge Order (Routine); Ordered 09/15/22 Ordered By: Asya Giron Ref[place]: [facility]) [Outside] Paola Moore MD [Primary Care Provider] - Patient Instructions: Opioid Safety, Pain Management Discharge Attestations Time Spent in Discharge Care*: less than 30 min Quality Metrics Clinical Quality Measures [ No reported AMI, CVA or VTE this stay] Coding Level of Care Code Acute Code for Chg Fwd Diagnoses Bradycardia R00.1 Atrial fibrillation I48.91 NADER (acute kidney injury) N17.9 HFrEF (heart failure with reduced ejection fraction) I50.20 Aortic stenosis I35.0 COPD (chronic obstructive pulmonary disease) J44.9 Pneumonia J18.9 Anemia D64.9
[2022-09-15] MEDS: ipratropium 0.5 mg/2.5 mL Neb INHALATION ×2 (08:11→11:41)
[2022-09-15] MEDS: albuterol 2.5 mg/3 mL Neb INHALATION ×2 (08:12→11:41)
[2022-09-15] MEDS: budesonide 0.5 mg/2 mL Neb INHALATION (09:10)
[2022-09-15] MEDS: insulin lispro 100 unit/1 mL SUBCUT (10:31)
[2022-09-15] MEDS: pantoprazole DR 40 mg Tablet PO (10:32)
[2022-09-15] MEDS: apixaban 5 mg Tablet 2.5 MG PO (10:32)
--- NOTE | 2022-09-15 11:14 | PM.PN ---
Subjective Subjective: no new complaints Medications: Reviewed: Yes Vitals/I&O/Wt Last Vital Signs Temp 97.9 F 09/15/22 07:39 Pulse 79 09/15/22 08:00 Resp 16 09/15/22 08:00 BP 130/56 09/15/22 07:39 Pulse Ox 99 09/15/22 08:00 O2 Del Method 09/15/22 08:00 O2 Flow Rate 2 09/15/22 08:00 09/14/22 09/15/22 09/15/22 22:59 06:59 14:59 Intake Total 240 / 740 Output Total 2300 / 2300 1500 / 3800 600 / 600 Balance -2060 / -1560 -1500 / -3060 -600 / -600 Weight last 48 hrs Weight 68.719 kg Weight 68.5 kg Physical Exam Narrative: comfortable in bed, ANRD vss heent- nc/at, eomi, anicteric neck supple lungs exp wheezes heart irreg, rate controlled abd soft, nt, nd, + bs ext no edema neuro a,a, o x 3 Urinary Catheter Management: Ortiz: Cath Placed During This Visit: yes, but has since been removed by the nurse Reason for Continuing Indwelling Catheter: Decision to DC Catheter Urinary Catheter Date of Insertion: 09/10/22 Urinary Catheter Time of Insertion: 19:30 Date Urinary Catheter Removed: 09/15/22 Time Urinary Catheter Discontinued: 09:49 Data 09/15/22 01:02 09/15/22 01:02 Micro: Microbiology 09/14/22 09:45 Gram Stain - Final Sputum - Expectorated Sputum Sputum Culture - Preliminary A&P Assessment and plan (1) NADER (acute kidney injury): 77 yr old man a fib, HFrEF, moderate , copd, pna. 1. CKD stage 3- baseline cr 1.2 mg/dl 2. NADER -prerenal azotemia vs ATN -cr improving- -k elevated , ordered Kayexalate 30 g x 1, repeat BMP prior to discharge 3. anemia- tsat 6.7 %, ferritin 226- iron and epo 4. dm care per medicine 5. normal phos 6. check vanco trough- keep under 19 seen and examined w/ RN- telehealth visit time spent >30 minutes Plan as above Attestations Medical Necessity Statement*: Deferred to the primary Coding Level of Care Code Acute Code for Chg Fwd Diagnoses NADER (acute kidney injury) N17.9
--- NOTE | 2022-09-15 11:15 | PC.SOCIAL ---
IMM Update pg 2 of IMM updated and reviewed w/ patient. Copy provided and Copy in chart dated, and initialed.
[2022-09-15] MEDS: sodium polystyrene sulfonate 15 gm/60 mL Btl 30 GM PO (11:35)
[2022-09-15 11:42] LABS: Glucose Point of Care 232 mg/dL (70-110)
[2022-09-15 12:11] LABS: Anion Gap 16.9 (5-19); Blood Urea Nitrogen 20 mg/dL (8-23); Calcium 8.4 mg/dL (8.5-10.5); Carbon Dioxide 19 mmol/L (22-29); Chloride 102 mmol/L (98-107); Glucose 211 mg/dL (65-115); Osmolality Calculated 285 mOsm/kg (285-295); Potassium 4.9 mmol/L (3.5-5.1); Sodium 133 mmol/L (136-145)
== END 2022-09-15 14:28 | disposition home health service (06) | DRG 917 ==
LOC: ER 21:45 → ICU 22:45 → MEDSURG 09-14 23:49
PROVIDERS: Hospitalist; Internal Medicine; Internal Medicine Nephrology; Admitting Provider Internal Medicine; Emergency Provider Emergency Medicine; PCP Family Medicine; Visit Provider Internal Medicine
DX: T46.0X1A Poisoning by cardiac-stimulant glycosides and drugs of similar action, accidental (unintentional), initial encounter (principal); N17.0 Acute kidney failure with tubular necrosis; I13.0 Hypertensive heart and chronic kidney disease with heart failure and stage 1 through stage 4 chronic kidney disease, or unspecified chronic kidney disease; I50.22 Chronic systolic (congestive) heart failure; E87.20 Acidosis, unspecified; I49.5 Sick sinus syndrome; N18.30 Chronic kidney disease, stage 3 unspecified; E11.22 Type 2 diabetes mellitus with diabetic chronic kidney disease; E11.65 Type 2 diabetes mellitus with hyperglycemia; D63.1 Anemia in chronic kidney disease; J44.9 Chronic obstructive pulmonary disease, unspecified; I48.91 Unspecified atrial fibrillation; I25.10 Atherosclerotic heart disease of native coronary artery without angina pectoris; Z95.1 Presence of aortocoronary bypass graft; I25.5 Ischemic cardiomyopathy; I35.0 Nonrheumatic aortic (valve) stenosis; E86.1 Hypovolemia; E86.0 Dehydration; D50.9 Iron deficiency anemia, unspecified; Z79.51 Long term (current) use of inhaled steroids; Z95.3 Presence of xenogenic heart valve; I71.43 Infrarenal abdominal aortic aneurysm, without rupture; K52.9 Noninfective gastroenteritis and colitis, unspecified; E83.42 Hypomagnesemia; H10.32 Unspecified acute conjunctivitis, left eye; E87.5 Hyperkalemia; Z87.891 Personal history of nicotine dependence
CPT/HCPCS: 12345; 36415; 36416; 36600; 51702; 71045; 71250; 74176; 76770; 80048; 80051; 80053; 80162; 80202; 80503; 81001; 82330; 82575; 82728; 82803; 82805; 82962; 83540; 83550; 83605; 83690; 83735; 83880; 84100; 84145; 84156; 84300; 84443; 84484; 85025; 85610; 85730; 86403; 86850; 86870; 86900; 86902; 86920; 87040; 87070; 87086; 87205; 87449; 87493; 87506; 87635; 87641; 93005; 94640; 96365; 96367; 96372; 96375; 99285; J0610; J1644; J1756; J1815; J2543; J3370; J3475; J7040; J7120; J7613; J7626; J7644; Q3014; Q4081

== ENCOUNTER 2022-11-05 14:55 | Emergency (ER) | payer OTHER, SELFPAY ==
[2022-11-05 15:00] VITALS: BP 129/69; PULSE 100; RESP 18; TEMP 36.7; O2SAT 92
--- NOTE | 2022-11-05 15:05 | XRR_ITS ---
PROCEDURE INFORMATION: Exam: XR Chest Exam date and time: 11/05/2022 3:15 PM Age: 77 years old Clinical indication: Cough and dyspnea; Prior surgery; Surgery type: Cabg. Mitral valve; Additional info: Dyspnea/cough TECHNIQUE: Imaging protocol: Radiologic exam of the chest. Views: 1 view. COMPARISON: [place] [id number] 09/10/2022 8:39 PM FINDINGS: Lungs: Interstitial congestion is seen in the bilateral lower lobes.. Pleural spaces: Unremarkable. No pleural effusion. No pneumothorax. Heart/Mediastinum: Unremarkable. No cardiomegaly. Cardiac valve prosthesis is seen. Bones/joints: Metallic sternotomy wires are present. XR/XR chest 1V portable [id number] IMPRESSION: 1. Bilateral lower lobe interstitial congestion 2. Metallic sternotomy wires are present. 3. Cardiac valve prosthesis is present
[2022-11-05 15:16] LABS: Basophils % 0.1 %; Eosinophils % 0.1 %; Hematocrit 27.6 % (42.0-52.0); Hemoglobin 8.7 g/dL (11.7-16.6); Lymphocytes # 0.5 10^3/uL (0.8-4.8); Mean Corpuscular HGB Conc 31.5 g/dL (30.0-36.0); Mean Corpuscular Hemoglobin 28.5 pg (28.0-34.0); Mean Corpuscular Volume 90.5 fl (80-94); Mean Platelet Volume 11.3 fL (7.4-10.4); Monocytes # 1.6 10^3/uL (0.2-0.9); Monocytes % 12.5 %; Neutrophils # 10.23 10^3/uL (1.8-7.7); Neutrophils % 80.2 %; Nucleated Red Blood Cells % 0 %; Platelet Count 196 10^3/cmm (130-400); Red Blood Count 3.05 10^6/uL (4.1-5.3); Red Cell Distribution Width 16.6 % (12.1-15.1); White Blood Count 12.8 10^3/uL (4.0-10.0)
[2022-11-05 15:32] LABS: ABG PCO2 34.7 mmHg (35-45); ABG PH Result 7.45 (7.35-7.45); Alveolar-Arterial Oxygen Gradi 4.4 mmHg (5-10); Base Excess ABG 0.2 mmol/L (-2.0-2.0); Blood Gas Allen Test Pos; Blood Gas Operator Identificat WALCI; Blood Gas Sample Site Radial, left; Blood Gas Sample Type Arterial; Carboxyhemoglobin 2.1 %THgb (0.4-20.1); HGB O2 Sat 93.5 % (95-100); Ionized Calcium Level - ABG 1.2 mmol/L (1.1-1.4); Methemoglobin 0.3 % (0.4-1.5); Oxygen Device NC; Oxygen Saturation ABG 95.8; PO2 ABG 71.3 mmHg (80.0-100.0); Total Hemoglobin 8.5 g/dL (14-18)
[2022-11-05 15:37] VITALS: PULSE 98; RESP 16; O2SAT 95
[2022-11-05] MEDS: ipratropium-albuterol 3 mL Neb INHALATION (15:39)
[2022-11-05 15:40] LABS: Alanine Aminotransferase 12 U/L (0-41); Albumin Level 4.5 g/dL (3.5-5.2); Alkaline Phosphatase 118 U/L (40-130); Anion Gap 16.1 (5-19); Aspartate Amino Transferase 22 U/L (0-40); Blood Urea Nitrogen 21 mg/dL (8-23); Calcium 8.5 mg/dL (8.5-10.5); Carbon Dioxide 23 mmol/L (22-29); Chloride 99 mmol/L (98-107); Globulin 2.5 g/dL (1.3-4.6); Glucose 234 mg/dL (65-115); Osmolality Calculated 289 mOsm/kg (285-295); Potassium 4.1 mmol/L (3.5-5.1); Sodium 134 mmol/L (136-145); Total Bilirubin 0.4 mg/dL (0.15-1.2)
[2022-11-05 15:41] VITALS: PULSE 101
--- NOTE | 2022-11-05 15:43 | ECG_ITS ---
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 Measurements Intervals [place] Rate: 100 P: 52 MT: 166 QRS: 109 QRSD: 145 T: 4 QT: 377 QTc: 487 Interpretive Statements SINUS TACHYCARDIA RIGHT AXIS DEVIATION [QRS AXIS > 100] INTRAVENTRICULAR CONDUCTION DELAY [130+ ms QRS DURATION] Compared to ECG 09/11/2022 12:22:38 Right-axis deviation now present Intraventricular conduction delay now present Atrial fibrillation no longer present Myocardial infarct finding no longer present Electronically Signed On 11-05-2022 21:09:24 CDT by Ariana Schwartz M.D. [id number]
--- NOTE | 2022-11-05 16:03 | ED_ITS ---
HPI - SOB/Dyspnea General: Chief Complaint: Shortness of Breath/Dyspnea Stated Complaint: Resp Distress Time Seen by Provider: 11/05/22 15:02 Source: patient Mode of arrival: ambulatory History of Present Illness: HPI Narrative: 77-year-old male presents emergency room complaining of shortness of breath he was sent from the [place] recently for pneumonia has a history of COPD is a chronic baseline cough denies fever sweats or chills no chest pain at this time. MD elicited complaint: shortness of breath and cough Pertinent past history: COPD Timing: constant Severity: mild Exacerbating factors: nothing Relieving factors: nothing Known history of: COPD Associated symptoms: Deny abdominal pain, chest congestion, chest pain, cough, diaphoresis, dizziness, extremity pain, fever(s), hemoptysis, lightheadedness, myalgias, nausea, orthopnea, palpitations, paresthesias, polydipsia, polyuria, rash, sense of impending doom, syncope or vomiting Treatment prior to arrival: none Review of Systems Const: Denies: fever(s), chills or diaphoresis ENMT: Denies: throat pain, ear or mastoid pain, nasal discharge or nasal congestion Card: Denies: chest pain, palpitations, edema, lightheadedness, syncope or orthopnea Resp: Reports: dyspnea, productive cough (Unchanged at patient's baseline) and wheezing; Denies: hemoptysis or chest congestion GI: Denies: abdominal pain, nausea or vomiting : Denies: flank pain, dysuria, urinary frequency or urinary urgency Musc: Denies: extremity pain Skin/Breast: Denies: rash or pruritus Neuro: Denies: dizziness Endo: Denies: polyuria or polydipsia PFS ED PFSH: Medical History (Updated 11/05/22 @ 18:10 by Raymundo Gutierrez DO) Abdominal pain Acute bacterial conjunctivitis of left eye Acute exacerbation of chronic obstructive pulmonary disease (COPD) Acute hyperkalemia Acute kidney injury Acute renal failure NADER (acute kidney injury) Anemia Aortic stenosis Atrial fibrillation Bradycardia Chronic kidney failure Congestive heart failure (CHF) COPD (chronic obstructive pulmonary disease) COPD (chronic obstructive pulmonary disease) Coronary artery disease Diabetes mellitus Diarrhea Digoxin overdose HFrEF (heart failure with reduced ejection fraction) HTN (hypertension) Hyperkalemia Hypomagnesemia Hyponatremia Hypoxia Ischemic cardiomyopathy Moderate aortic stenosis NSTEMI (non-ST elevated myocardial infarction) Pneumonia Poisoning by calcium-channel blockers Rhabdomyolysis Sepsis Suspected 2019-nCoV infection Symptomatic bradycardia Vomiting Surgical History History of mitral valve replacement with bioprosthetic valve 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 Family History Mother Stroke Denies family history of Diabetes CAD (coronary artery disease) Clotting disorder Dementia Social History Smoking and tobacco status: light tobacco smoker Quit status (tobacco): has quit using tobacco Year quit tobacco: 2016 Former quit date comment: smoked 1 pack per day x 36 years Alcohol intake: current Household members: spouse Housing: House 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 Const: COMMON NORMALS: no acute distress GENERAL APPEARANCE: cooperative and comfortable ORIENTATION/CONSCIOUSNESS: Yes awake, Yes oriented to person, Yes oriented to place and Yes oriented to time HENMT: COMMON NORMALS: normocephalic, atraumatic and hearing grossly normal bilaterally HEAD & SCALP: normocephalic and atraumatic Resp: COMMON NORMALS: normal respiratory effort, No retractions and No use of accessory muscles AUSCULTATION: wheezes Cardio: COMMON NORMALS: regular rate, regular rhythm and No murmurs present (Cardio) RATE: regular rate RHYTHM: regular rhythm GI: COMMON NORMALS: Soft to palpation and No hepatosplenomegaly present AUSCULTATION: Yes normoactive bowel sounds PALPATION: Yes Soft to palpation, No Tenderness to palpation present (GI), No Guarding due to palpation present (GI) and Yes No hepatosplenomegaly present Extremity: COMMON NORMALS: normal to inspection, capillary refill normal, no clubbing, cyanosis or edema, no calf tenderness and no pedal edema Neuro: SENSORIUM/ORIENTATION: Yes oriented to person, Yes oriented to place a nd Yes oriented to time Skin: COMMON NORMALS: no rashes or lesions noted GENERAL SKIN EXAM: no rashes or lesions noted Course Vital Signs: Vital signs: Vital Signs Temperature 98.1 F 11/05/22 15:00 Pulse Rate 115 H 11/05/22 18:01 Respiratory Rate 14 11/05/22 18:01 Blood Pressure 150/75 11/05/22 18:01 Pulse Oximetry 91 11/05/22 18:01 Oxygen Delivery Me thod Nasal Cannula 11/05/22 18:01 Oxygen Flow Rate 2 11/05/22 18:01 MDM - SOB/Dyspnea Medical Decision Making Bilateral lower lobe infiltrates. Patient is feeling much better is not having wheezing at this point he received a nebulizer and steroids. He is sleeping comfortably without any tachypnea or retractions. His wheezing is markedly decreased. He would prefer to go home we will discharge him home on a steroid taper and oral antibiotics. Recheck early next week with his regular doctor is not worsening or change symptoms return. Medical Records I reviewed the patient's medical records. Lab Data I reviewed the patient's lab results. 11/05/22 14:37 11/05/22 14:37 Labs/Radiology: Radiology Impressions Chest X-Ray 11/05/22 15:05 IMPRESSION: 1. Bilateral lower lobe interstitial congestion 2. Metallic sternotomy wires are present. 3. Cardiac valve prosthesis is present Laboratory Results WBC 12.8 10^3/uL (4.0-10.0) H 11/05/22 14:37 RBC 3.05 10^6/uL (4.1-5.3) L 11/05/22 14:37 Hgb 8.7 g/dL (11.7-16.6) L 11/05/22 14:37 Hct 27.6 % (42.0-52.0) L 11/05/22 14:37 MCV 90.5 fl (80-94) 11/05/22 14:37 MCH 28.5 pg (28.0-34.0) 11/05/22 14:37 MCHC 31.5 g/dL (30.0-36.0) 11/05/22 14:37 RDW 16.6 % (12.1-15.1) H 11/05/22 14:37 Plt Count 196 10^3/cmm (130-400) 11/05/22 14:37 MPV 11.3 fL (7.4-10.4) H 11/05/22 14:37 Neut % (Auto) 80.2 % 11/05/22 14:37 Lymph % (Auto) 4.0 % 11/05/22 14:37 [place] % (Auto) 12.5 % 11/05/22 14:37 Eos % (Auto) 0.1 % 11/05/22 14:37 Baso % (Auto) 0.1 % 11/05/22 14:37 Neut # (Auto) 10.23 10^3/uL (1.8-7.7) H 11/05/22 14:37 Lymph # (Auto) 0.5 10^3/uL (0.8-4.8) L 11/05/22 14:37 [place] # (Auto) 1.6 10^3/uL (0.2-0.9) H 11/05/22 14:37 Eos # (Auto) 0.0 10^3/uL (0.0-0.8) 11/05/22 14:37 Baso # (Auto) 0.0 10^3/uL (0.0-0.1) 11/05/22 14:37 Nucleated RBC % (auto) 0 % 11/05/22 14:37 Nucleated RBCs # 0.0 /100WBC 11/05/22 14:37 Specimen Type Arterial 11/05/22 15:21 Sample Site Radial, left 11/05/22 15:21 ABG pH 7.45 (7.35-7.45) 11/05/22 15:21 ABG pCO2 34.7 mmHg (35-45) L 11/05/22 15:21 ABG pO2 71.3 mmHg (80.0-100.0) L 11/05/22 15:21 ABG HCO3 24.0 mmol/L (22-26) 11/05/22 15:21 ABG O2 Saturation 95.8 11/05/22 15:21 ABG Base Excess 0.2 mmol/L (-2.0-2.0) 11/05/22 15:21 Lei Test Pos 11/05/22 15:21 A-a O2 Gradient 4.4 mmHg (5-10) L 11/05/22 15:21 Hematocrit 26.0 % (42-52) L 11/05/22 15:21 Hgb O2 Saturation 93.5 % (95-100) L 11/05/22 15:21 Carboxyhemoglobin 2.1 %THgb (0.4-20.1) 11/05/22 15:21 Methemoglobin 0.3 % (0.4-1.5) L 11/05/22 15:21 Total Hemoglobin 8.5 g/dL (14-18) L 11/05/22 15:21 Sodium 134.0 mmol/L (131-143) 11/05/22 15:21 Potassium 4.0 mmol/L (3.5-5.0) 11/05/22 15:21 Glucose 306.0 mg/dL (70-115) H 11/05/22 15:21 Ionized Calcium 1.2 mmol/L (1.1-1.4) 11/05/22 15:21 O2 Delivery Device Nc 11/05/22 15:21 O2 Liters/Min 2.0 % 11/05/22 15:21 Lamp Decorator ID [place] 11/05/22 15:21 Sodium 134 mmol/L (136-145) L 11/05/22 14:37 Potassium 4.1 mmol/L (3.5-5.1) 11/05/22 14:37 Chloride 99 mmol/L (98-107) 11/05/22 14:37 Carbon Dioxide 23 mmol/L (22-29) 11/05/22 14:37 Anion Gap 16.1 (5-19) 11/05/22 14:37 BUN 21 mg/dL (8-23) 11/05/22 14:37 Creatinine 1.2 mg/dL (0.7-1.2) 11/05/22 14:37 GFR Calculation Not Reportable 11/05/22 14:37 Glucose 234 mg/dL (65-115) H 11/05/22 14:37 Calculated Osmolality 289 mOsm/kg (285-295) 11/05/22 14:37 Calcium 8.5 mg/dL (8.5-10.5) 11/05/22 14:37 Total Bilirubin 0.4 mg/dL (0.15-1.2) 11/05/22 14:37 AST 22 U/L (0-40) 11/05/22 14:37 ALT 12 U/L (0-41) 11/05/22 14:37 Alkaline Phosphatase 118 U/L (40-130) 11/05/22 14:37 Total Protein 7.0 g/dL (6.6-8.7) 11/05/22 14:37 Albumin 4.5 g/dL (3.5-5.2) 11/05/22 14:37 Globulin 2.5 g/dL (1.3-4.6) 11/05/22 14:37 Urine Color Yellow (Yellow) 11/05/22 16:45 Urine Appearance Clear (CLEAR) 11/05/22 16:45 Urine pH 5 (5-7) 11/05/22 16:45 Ur Specific [place]zan 1.010 (1.005-1.030) 11/05/22 16:45 Urine Protein Neg (Negative) 11/05/22 16:45 Urine Glucose (UA) 4+ (Normal) H 11/05/22 16:45 Urine Ketones Negative (Negative) 11/05/22 16:45 Urine Blood Neg (Negative) 11/05/22 16:45 Urine Nitrate Negative (Negative) 11/05/22 16:45 Urine Bilirubin Neg (Negative) 11/05/22 16:45 Urine Urobilinogen Neg mg/dL (Negative) 11/05/22 16:45 Ur Leukocyte Esterase Negative (Negative) 11/05/22 16:45 Discharge Plan Discharge Patient Disposition: Home Condition: Stable Prescriptions: New doxycycline hyclate 100 mg capsule 100 mg PO BID 10 Days Qty: 20 0RF prednisone 20 mg tablet 20 mg PO TID Qty: 15 0RF Rx Instructions: 1 p.o. 3 times daily x3 days, 1 p.o. twice daily x2 days, 1 p.o. daily x2 days ipratropium-albuterol 0.5 mg-3 mg(2.5 mg base)/3 mL solution for nebulization 3 ml inhalation Q4H PRN (Reason: shortness of breath or wheezing) Qty: 90 0RF No Action multivitamin Tablet 1 tab PO DAILY omeprazole 40 mg Capsule,Delayed Release(Dr/Ec) 40 mg PO BID docusate sodium 100 mg Capsule 100 - 200 mg PO DAILY PRN (Reason: Constipation) albuterol sulfate 90 mcg/actuation Hfa Aerosol Inhaler 2 puff INHALATION Q4H PRN (Reason: Shortness Of Breath) cholecalciferol (vitamin D3) [Vitamin D3] 25 mcg (1,000 unit) Capsule 25 mcg PO DAILY furosemide [Lasix] 40 mg Tablet 40 mg PO QAM Hold Instructions: Resume on 09/17/22. prednisolone acetate 1 % Drops,Suspension 1 drp ophthalmic (eye) BID Rx Instructions: left eye fluticasone propion-salmeterol [Advair Diskus] 100-50 mcg/dose Blister With Device 1 inh INHALATION BID carboxymethylcellulose sodium [Refresh Liquigel] 1 % Drops, Liquid Gel 1 drp OPHTHALMIC (EYE) BID PRN (Reason: Dry Eye(S)) ferrous gluconate 324 mg (38 mg iron) Tablet 324 mg PO BID ipratropium-albuterol 20-100 mcg/actuation Mist 1 puff INHALATION Q6H PRN (Reason: Shortness Of Breath) albuterol sulfate 90 mcg/actuation HFA aerosol inhaler 2 inh inhalation Q4H PRN (Reason: shortness of breath or wheezing) Qty: 8.5 0RF amlodipine 10 mg tablet 10 mg PO DAILY Qty: 30 2RF hydralazine 25 mg tablet 25 mg PO BID Qty: 60 2RF Eliquis 5 mg Tablet 2.5 mg PO BID Qty: 30 0RF Lantus Solostar U-100 Insulin 100 unit/mL (3 mL) Insulin Pen 10 unit SUBCUT BEDTIME Qty: 15 0RF Discharge Orders: Discharge ED (Routine); Ordered 11/05/22 Ordered By: Raymundo Gutierrez Other Ambulatory Orders: DME: Nebulizer with Neb Kit (Order) Location: None Selected Ordered By: Raymundo Gutierrez Referrals: Paola Moore MD [Primary Care Provider] - Patient Instructions: Opioid Safety, Pain Management Coding Level of Care Code ED Vegetable Tester for Deyanira Pinon
[2022-11-05 16:45] VITALS: BP 138/72; PULSE 104; RESP 16; O2SAT 92
[2022-11-05 16:59] LABS: Add Urine Microscopic? NO; Charge for UA Resulting for Rev
[2022-11-05 17:11] LABS: Bilirubin Urine Neg (Negative); Blood Urine Neg (Negative); Glucose Urine UA 4+ (Normal); Ketones Urine Negative (Negative); Leukocyte Esterase Urine Negative (Negative); Nitrate Urine Negative (Negative); Protein Urine Neg (Negative); Urine Appearance Clear (CLEAR); Urine Color Yellow (Yellow); Urobilinogen Urine Neg (Negative); pH Urine 5 (5-7)
[2022-11-05 18:01] VITALS: BP 150/75; PULSE 115; RESP 14; O2SAT 91
== END 2022-11-05 18:45 | disposition home or self-care (01) ==
PROVIDERS: Emergency Provider Family Medicine; PCP Family Medicine
DX: R06.02 Shortness of breath (principal); Z79.01 Long term (current) use of anticoagulants; Z79.4 Long term (current) use of insulin; F17.210 Nicotine dependence, cigarettes, uncomplicated; Z95.1 Presence of aortocoronary bypass graft; E11.22 Type 2 diabetes mellitus with diabetic chronic kidney disease; I13.0 Hypertensive heart and chronic kidney disease with heart failure and stage 1 through stage 4 chronic kidney disease, or unspecified chronic kidney disease; N18.9 Chronic kidney disease, unspecified; I50.9 Heart failure, unspecified; J44.9 Chronic obstructive pulmonary disease, unspecified; I25.10 Atherosclerotic heart disease of native coronary artery without angina pectoris; I25.2 Old myocardial infarction
CPT/HCPCS: 36600; 71045; 80051; 80053; 81003; 82330; 82805; 85025; 93005; 94640; 96374; 99285; J2930

== ENCOUNTER 2022-11-06 12:48 | Emergency (ER) | payer OTHER, SELFPAY ==
[2022-11-06 12:56] VITALS: BP 120/70; PULSE 114; RESP 22; TEMP 36.4; O2SAT 92
--- NOTE | 2022-11-06 13:05 | ED_ITS ---
HPI - SOB/Dyspnea General: Chief Complaint: Shortness of Breath/Dyspnea Stated Complaint: SOB Time Seen by Provider: 11/06/22 12:58 History of Present Illness: HPI Narrative: Patient presents to the ER with complaints of his home oxygen machine not working. Patient was seen yesterday in the ER and diagnosed with pneumonia and was given an antibiotic and a steroid. [facility]. Patient then presents to the ER with a diagnosis of pneumonia and shortness of breath. Patient is currently on his 2 L of oxygen per nasal cannula satting in the mid 90s which he is currently on at home. Patient is really on for sure why he was here other than the [facility]. MD elicited complaint: anxiety (Pneumonia) Pertinent past history: pneumonia Onset (ago): day(s) (Diagnosed yesterday) Context: recent illness Timing: constant Severity: mild Known history of: COPD (Pneumonia) Associated symptoms: Reports chest congestion; Deny abdominal pain, chest pain, fever(s), nausea, palpitations, polyuria or vomiting Review of Systems General: Reports: 10 or more systems reviewed and unremarkable except in HPI and below Const: Denies: fever(s) or chills Eyes: Denies: change in vision ENMT: Denies: throat pain or odynophagia Card: Denies: chest pain, palpitations, irregular heart rhythm or edema Resp: Reports: dyspnea, productive cough and chest congestion GI: Denies: abdominal pain, nausea, vomiting or diarrhea : Denies: flank pain or dysuria Musc: Denies: neck pain or back pain Skin/Breast: Denies: rash or pruritus Neuro: Denies: headache(s), numbness in extremities or weakness in extremities Psych: Denies: anxiety or depression Endo: Denies: polyuria Marvel/Lymph: Denies: easy bruising or easy bleeding PFS ED PFSH: Medical History Abdominal pain Acute bacterial conjunctivitis of left eye Acute exacerbation of chronic obstructive pulmonary disease (COPD) Acute hyperkalemia Acute kidney injury Acute renal failure NADER (acute kidney injury) Anemia Aortic stenosis Atrial fibrillation Bradycardia Chronic kidney failure Congestive heart failure (CHF) COPD (chronic obstructive pulmonary disease) COPD (chronic obstructive pulmonary disease) Coronary artery disease Diabetes mellitus Diarrhea Digoxin overdose HFrEF (heart failure with reduced ejection fraction) HTN (hypertension) Hyperkalemia Hypomagnesemia Hyponatremia Hypoxia Ischemic cardiomyopathy Moderate aortic stenosis NSTEMI (non-ST elevated myocardial infarction) Pneumonia Poisoning by calcium-channel blockers Rhabdomyolysis Sepsis Suspected 2018-nCoV infection Symptomatic bradycardia Vomiting Surgical History History of mitral valve replacement with bioprosthetic valve 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 Family History Mother Stroke Denies family history of Diabetes CAD (coronary artery disease) Clotting disorder Dementia Social History Smoking and tobacco status: light tobacco smoker Quit status (tobacco): has quit using tobacco Year quit tobacco: 2016 Former quit date comment: smoked 1 pack per day x 36 years Alcohol intake: current Household members: spouse Housing: House 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 Const: COMMON NORMALS: no acute distress, average body habitus, patient oriented x3, no limitations, healthy appearing, alert and well nourished HENMT: COMMON NORMALS: normocephalic, atraumatic, hearing grossly normal bilaterally, external ears normal, Normal external nose present and moist oral mucous membranes HEAD & SCALP: normocephalic and atraumatic NOSE: Normal external nose present EXTERNAL EAR: Yes external ears normal Eye: COMMON NORMALS: Equal, round and reactive pupils present, EOMs intact bilaterally, conjunctivae normal and no scleral icterus CONJUNCTIVA: Yes conjunctivae normal PUPIL: Yes Equal, round and reactive pupils present Neck/C-Spine: COMMON NORMALS: full ROM, no lymphadenopathy, supple, no meningeal signs, no JVD and Thyroid normal THYROID: Thyroid normal Chest: COMMONS NORMALS: normal inspection of the chest and normal palpation of entire chest wall Resp: EFFORT & INSPECTION: Yes able to speak in complete sentences and Yes symmetric chest movement AUSCULTATION: rhonchi Cardio: COMMON NORMALS: no JVD, regular rate, regular rhythm, S1 normal heart sound present and S2 normal heart sound present RATE: regular rate RHYTHM: regular rhythm HEART SOUNDS: S1 normal heart sound present and S2 normal heart sound present GI: COMMON NORMALS: Normal to inspection, nondistended, normoactive bowel sounds present, Soft to palpation, non-tender, No hepatosplenomegaly present and no masses PALPATION: Yes Soft to palpation and Yes No hepatosplenomegaly present : COMMON NORMALS: Yes no CVA tenderness BLADDER/KIDNEY EXAM: Yes no CVA tenderness Back/Pelvis: COMMON NORMALS: no CVA tenderness Neuro: COMMON NORMALS: patient oriented x3 SENSORIUM/ORIENTATION: Yes alert MENINGEAL SIGNS: Yes no meningeal signs Psych: COMMON NORMALS: mental status grossly normal, Normal thought process present, cooperative, normal affect, speech normal and activity/motor behavior normal SPEECH: Yes normal speech THOUGHT PROCESS: Normal thought process present Course Vital Signs: Vital signs: Vital Signs Temperature 97.6 F 11/06/22 12:56 Pulse Rate 114 H 11/06/22 12:56 Respiratory Rate 22 H 11/06/22 12:56 Blood Pressure 120/70 11/06/22 12:56 Pulse Oximetry 92 11/06/22 12:56 Oxygen Delivery Me thod Nasal Cannula 11/06/22 12:56 Oxygen Flow Rate 3 11/06/22 12:56 MDM - SOB/Dyspnea Medical Decision Making Records were reviewed from patient's ER visit yesterday as well as speaking to Dr. Odell who took care of him yesterday and Sophie who took care of him as well patient presents to the ER with complaints of pneumonia and shortness of breath. Patient was sent from the [place] for further evaluation. Patient was seen yesterday and diagnosed with pneumonia and given a prescription for antibiotics and steroids. Patient is unsure why he was here other [facility] Was figured out that patient's home oxygen concentrator is not currently working however he has someone coming out to fix it today. Patient is on 2 L of oxygen per nasal cannula currently as well as this is the dose he is on at home he is in no acute distress his oxygen saturation is consistently 93+ percent patient be discharged home to get the current antibiotics and breathing treatments and steroids field. Differential Diagnosis Likely acute exacerbation of chronic obstructive airways disease and community acquired pneumonia Medical Records I reviewed the patient's medical records. Lab Data I reviewed the patient's lab results. Discharge Plan Discharge Patient Disposition: Home Clinical Impression: COPD (chronic obstructive pulmonary disease), Community acquired pneumonia Condition: Stable Prescriptions: No Action multivitamin Tablet 1 tab PO DAILY omeprazole 40 mg Capsule,Delayed Release(Dr/Ec) 40 mg PO BID docusate sodium 100 mg Capsule 100 - 200 mg PO DAILY PRN (Reason: Constipation) albuterol sulfate 90 mcg/actuation Hfa Aerosol Inhaler 2 puff INHALATION Q4H PRN (Reason: Shortness Of Breath) cholecalciferol (vitamin D3) [Vitamin D3] 25 mcg (1,000 unit) Capsule 25 mcg PO DAILY furosemide [Lasix] 40 mg Tablet 40 mg PO QAM Hold Instructions: Resume on 09/17/22. prednisolone acetate 1 % Drops,Suspension 1 drp ophthalmic (eye) BID Rx Instructions: left eye fluticasone propion-salmeterol [Advair Diskus] 100-50 mcg/dose Blister With Device 1 inh INHALATION BID carboxymethylcellulose sodium [Refresh Liquigel] 1 % Drops, Liquid Gel 1 drp OPHTHALMIC (EYE) BID PRN (Reason: Dry Eye(S)) ferrous gluconate 324 mg (38 mg iron) Tablet 324 mg PO BID ipratropium-albuterol 20-100 mcg/actuation Mist 1 puff INHALATION Q6H PRN (Reason: Shortness Of Breath) doxycycline hyclate 100 mg capsule 100 mg PO BID 10 Days Qty: 20 0RF prednisone 20 mg tablet 20 mg PO TID Qty: 15 0RF Rx Instructions: 1 p.o. 3 times daily x3 days, 1 p.o. twice daily x2 days, 1 p.o. daily x2 days ipratropium-albuterol 0.5 mg-3 mg(2.5 mg base)/3 mL solution for nebulization 3 ml inhalation Q4H PRN (Reason: shortness of breath or wheezing) Qty: 90 0RF albuterol sulfate 90 mcg/actuation HFA aerosol inhaler 2 inh inhalation Q4H PRN (Reason: shortness of breath or wheezing) Qty: 8.5 0RF amlodipine 10 mg tablet 10 mg PO DAILY Qty: 30 2RF hydralazine 25 mg tablet 25 mg PO BID Qty: 60 2RF Eliquis 5 mg Tablet 2.5 mg PO BID Qty: 30 0RF Lantus Solostar U-100 Insulin 100 unit/mL (3 mL) Insulin Pen 10 unit SUBCUT BEDTIME Qty: 15 0RF Discharge Orders: Discharge ED (Routine); Ordered 11/06/22 Ordered By: Scooby Reza Referrals: Paola Moore MD [Primary Care Provider] - 1 week Patient Instructions: Pneumonia (ED), COPD Activity Restrictions/Additional Instructions: Please get your medications filled that was prescribed to you from the ER yesterday. Today someone is currently on their way to fix your oxygen concentrator at home. Coding Level of Care Code ED Project Management Engineer for Deyanira Pinon
[2022-11-06 15:18] VITALS: BP 120/70; PULSE 100; RESP 22; TEMP 36.4; O2SAT 93
== END 2022-11-06 15:00 | disposition home or self-care (01) ==
PROVIDERS: Emergency Provider Emergency Medicine; PCP Family Medicine
DX: J44.0 Chronic obstructive pulmonary disease with (acute) lower respiratory infection (principal); J18.9 Pneumonia, unspecified organism; Z79.01 Long term (current) use of anticoagulants; Z79.4 Long term (current) use of insulin; F17.210 Nicotine dependence, cigarettes, uncomplicated; Z95.1 Presence of aortocoronary bypass graft; I13.0 Hypertensive heart and chronic kidney disease with heart failure and stage 1 through stage 4 chronic kidney disease, or unspecified chronic kidney disease; E11.22 Type 2 diabetes mellitus with diabetic chronic kidney disease; N18.9 Chronic kidney disease, unspecified; I50.9 Heart failure, unspecified; I25.10 Atherosclerotic heart disease of native coronary artery without angina pectoris; I25.2 Old myocardial infarction
CPT/HCPCS: 99282

== ENCOUNTER 2022-11-06 15:47 | Inpatient (IN) | payer OTHER, SELFPAY ==
[2022-11-06] VITALS (24 sets, daily range): BP systolic 108–155; BP diastolic 43–88; PULSE 79–160; RESP 14–40; TEMP 36.2–36.8; O2SAT 77–100; BMI 22.2
--- NOTE | 2022-11-06 15:48 | XRR_ITS ---
PROCEDURE INFORMATION: Exam: XR Chest Exam date and time: 11/06/2022 4:14 PM Age: 77 years old Clinical indication: Cough and dyspnea; Additional info: Dyspnea/cough TECHNIQUE: Imaging protocol: Radiologic exam of the chest. Views: 1 view. COMPARISON: CR XR chest 1V portable [id number] 11/05/2022 3:15 PM FINDINGS: Lungs: Worsening bibasilar consolidations, right greater than left. Pleural spaces: No pleural effusion. No pneumothorax. Heart/Mediastinum: Borderline cardiomegaly. Sequela of prior CABG. Cardiac valve replacement noted. Bones/joints: Sternotomy wires noted. Visualized osseous structures are intact. XR/XR chest 1V portable [id number] IMPRESSION: Worsening bibasilar consolidations, right greater than left, consistent with multifocal pneumonia.
--- NOTE | 2022-11-06 15:55 | ECG_ITS ---
[facility] Test Date: 2022-11-06 Pat Name: Anuj Irving Department: Room: Gender: Male Ophthalmic Assistant: : 1945 Requested By: Raymundo Tomas Order Number: [id number] Dolly MD: Tito Hernandez M.D. Measurements Intervals [place] Rate: 135 P: 50 LA: 148 QRS: 87 QRSD: 132 T: -35 QT: 295 QTc: 443 Interpretive Statements ATRIAL FIBRILLATION WITH RVR INTRAVENTRICULAR CONDUCTION DELAY [130+ ms QRS DURATION] Compared to ECG 11/05/2022 15:43:29 Right-axis deviation no longer present Electronically Signed On 11-07-2022 10:31:32 CDT by Tito Hernandez M.D. [email or web address]
[2022-11-06 16:26] LABS: ABG PCO2 35.1 mmHg (35-45); ABG PH Result 7.42 (7.35-7.45); Alveolar-Arterial Oxygen Gradi 6.2 mmHg (5-10); Arterial Blood Gas Hematocrit 27.1 % (42-52); Base Excess ABG -1.4 mmol/L (-2.0-2.0); Blood Gas Allen Test Pos; Blood Gas Operator Identificat WALCI; Blood Gas Sample Site Radial, right; Blood Gas Sample Type Arterial; Carboxyhemoglobin 2.2 %THgb (0.4-20.1); HCO3 ABG 22.8 mmol/L (22-26); HGB O2 Sat 87.2 % (95-100); Ionized Calcium Level - ABG 1.2 mmol/L (1.1-1.4); Methemoglobin 0.6 % (0.4-1.5); Oxygen Device NC; Oxygen Saturation ABG 89.7; PO2 ABG 56.5 mmHg (80.0-100.0); Potassium Level - ABG 4.3 mmol/L (3.5-5.0); Total Hemoglobin 8.8 g/dL (14-18)
--- NOTE | 2022-11-06 16:28 | ED_ITS ---
HPI - SOB/Dyspnea General: Chief Complaint: Shortness of Breath/Dyspnea Stated Complaint: pneumonia Time Seen by Provider: 11/06/22 15:48 Source: patient Mode of arrival: ambulatory History of Present Illness: HPI Narrative: Patient seen yesterday in the emergency room with exacerbation of COPD his sats were normal on his baseline and improved after nebulizers he was discharged home on doxycycline steroids and antibiotics with the finding of pneumonia on his chest x-ray. He returns today was seen by another ER physician his vital signs were stable at that time he was discharged. He returned shortly after that via ambulance. He is now on 6 L by nasal cannula. Normally is on 2 L per nasal cannula at home's oxygen saturations were documented as 93+ percent at the previous visit. There was some concern about his oxygen concentrator working correctly at home. When he was seen earlier this afternoon patient states he felt well and even mention he was not sure why they had sent him here. On arrival back he does tell me he has a moderately productive cough and is more short of breath. He has not filled the antibiotics or the steroids he was given he [facility] He also has not filled the prescription for nebulizer for the same reason. MD elicited complaint: shortness of breath and cough Pertinent past history: COPD Onset (ago): day(s) Timing: intermittent Severity: moderate Exacerbating factors: exertion and coughing Relieving factors: oxygen, rest and bronchodilators Known history of: COPD and congestive heart failure Associated symptoms: Reports chest congestion and cough; Deny abdominal pain, chest pain, diaphoresis, dizziness, extremity pain, fever(s), hemoptysis, lightheadedness, myalgias, nausea, orthopnea, palpitations, paresthesias, polydipsia, polyuria, rash, sense of impending doom, syncope or vomiting Treatment prior to arrival: oxygen Review of Systems Const: Reports: fatigue and malaise; Denies: fever(s), chills or diaphoresis ENMT: Denies: throat pain, ear or mastoid pain, nasal discharge or nasal congestion Card: Denies: chest pain, palpitations, edema, swelling of feet/ankles, lightheadedness, syncope or orthopnea Resp: Reports: chest congestion; Denies: hemoptysis GI: Denies: abdominal pain, nausea or vomiting : Denies: flank pain, dysuria, urinary frequency or urinary urgency Musc: Denies: extremity pain Skin/Breast: Denies: rash or pruritus Neuro: Denies: dizziness Endo: Denies: polyuria or polydipsia PFSH ED PFSH: Medical History Abdominal pain Acute bacterial conjunctivitis of left eye Acute exacerbation of chronic obstructive pulmonary disease (COPD) Acute hyperkalemia Acute kidney injury Acute renal failure NADER (acute kidney injury) Anemia Aortic stenosis Atrial fibrillation Bradycardia Chronic kidney failure Congestive heart failure (CHF) COPD (chronic obstructive pulmonary disease) COPD (chronic obstructive pulmonary disease) Coronary artery disease Diabetes mellitus Diarrhea Digoxin overdose HFrEF (heart failure with reduced ejection fraction) HTN (hypertension) Hyperkalemia Hypomagnesemia Hyponatremia Hypoxia Ischemic cardiomyopathy Moderate aortic stenosis NSTEMI (non-ST elevated myocardial infarction) Pneumonia Poisoning by calcium-channel blockers Rhabdomyolysis Sepsis Suspected 2019-nCoV infection Symptomatic bradycardia Vomiting Surgical History History of mitral valve replacement with bioprosthetic valve 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 Family History Mother Stroke Denies family history of Diabetes CAD (coronary artery disease) Clotting disorder Dementia Social History Smoking and tobacco status: light tobacco smoker Quit status (tobacco): has quit using tobacco Year quit tobacco: 2017 Former quit date comment: smoked 1 pack per day x 36 years Alcohol intake: current Household members: spouse Housing: House 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 Const: GENERAL APPEARANCE: comfortable ORIENTATION/CONSCIOUSNESS: Yes awake, Yes oriented to person, Yes oriented to place and Yes oriented to time HENMT: COMMON NORMALS: normocephalic, atraumatic and hearing grossly normal bilaterally HEAD & SCALP: normocephalic and atraumatic Resp: AUSCULTATION: rhonchi and wheezes Cardio: COMMON NORMALS: regular rhythm and No murmurs present (Cardio) RATE: tachycardic RHYTHM: regular rhythm GI: COMMON NORMALS: Soft to palpation and No hepatosplenomegaly present AUSCULTATION: Yes normoactive bowel sounds PALPATION: Yes Soft to palpation, No Tenderness to palpation present (GI), No Guarding due to palpation present (GI) and Yes No hepatosplenomegaly present Extremity: COMMON NORMALS: normal to inspection, capillary refill normal, no clubbing, cyanosis or edema, no calf tenderness and no pedal edema Neuro: SENSORIUM/ORIENTATION: Yes oriented to person, Yes oriented to place and Yes oriented to time Skin: COMMON NORMALS: no rashes or lesions noted GENERAL SKIN EXAM: no rashes or lesions noted Course Vital Signs: Vital signs: Vital Signs Temperature 97.8 F 11/10/22 04:00 Pulse Rate 95 11/10/22 04:00 Respiratory Rate 21 H 11/10/22 04:00 Blood Pressure 123/57 11/10/22 04:00 Pulse Oximetry 97 11/10/22 04:00 Oxygen Delivery Me thod Nasal Cannula 11/10/22 04:00 Oxygen Flow Rate 3 11/10/22 04:00 Fraction of Inspir ed Oxygen 35 11/09/22 16:00 MDM - SOB/Dyspnea Medical Decision Making Patient has a worsened particularly his oxygen deficit is increased since he was here earlier. He is not having chest pain at this time chest x-ray does show worsening pneumonia from when he was seen yesterday. Will admit started IV antibiotics steroids aggressive pulmonary toilet. Discussed with hospitalist orders written Medical Records I reviewed the patient's medical records. Lab Data I reviewed the patient's lab results. 11/10/22 02:52 11/10/22 02:52 Labs/Radiology: Radiology Impressions Chest X-Ray 11/07/22 05:29 IMPRESSION: 1. Increasing/worsening left mid and lower lung consolidation. 2. Small bilateral pleural effusions slightly worse on the right versus the left. 3. Persistent right basilar consolidation. Chest CT 11/09/22 15:19 IMPRESSION: 1. Extensive ground-glass opacities with areas of more confluency alveolar airspace disease with air bronchograms in the left lung diffusely and in the right lower lobe, increased significantly compared with the previous study. There is also worsening reticulonodular interstitial thickening in the right upper lobe and right middle lobe that has also increased. Findings are concerning for worsening pneumonia, including atypical organisms. Recommend followup chest imaging to insure resolution of these findings. 2. Small loculated pleural effusion associated pleural thickening in the posterior/man left hemithorax is stable. Possible infected pleural fluid or empyema cannot be ruled out. Recommend clinical correlation. 3. Debris layering in the left mainstem bronchus. This may represent bronchial secretions. 4. Stable nonspecific mediastinal lymphadenopathy. This could be reactive in nature. However, followup imaging is recommended to ensure stability/resolution. 5. Incidental/nonacute findings are listed in the report. ADDENDUM: 11/09/22 [id number] THIS REPORT CONTAINS FINDINGS THAT MAY BE CRITICAL TO PATIENT CARE. LIANA Law confirmed on 11/09/2022 at 11:23 PM CDT that a copy of the report containing critical findings was received and there were no questions. Head CT 11/09/22 19:17 IMPRESSION: 1. No acute intracranial abnormality. 2. Advanced diffuse cerebral atrophy and sequela of chronic small vessel ischemic disease. Laboratory Results WBC 17.5 10^3/uL (4.0-10.0) H 11/06/22 16:42 RBC 3.16 10^6/uL (4.1-5.3) L 11/06/22 16:42 Hgb 9.1 g/dL (11.7-16.6) L 11/06/22 16:42 Hct 29.3 % (42.0-52.0) L 11/06/22 16:42 MCV 92.7 fl (80-94) 11/06/22 16:42 MCH 28.8 pg (28.0-34.0) 11/06/22 16:42 MCHC 31.1 g/dL (30.0-36.0) 11/06/22 16:42 RDW 16.6 % (12.1-15.1) H 11/06/22 16:42 Plt Count 215 10^3/cmm (130-400) 11/06/22 16:42 MPV 11.6 fL (7.4-10.4) H 11/06/22 16:42 Neut % (Auto) 79.1 % 11/06/22 16:42 Lymph % (Auto) 2.1 % 11/06/22 16:42 Hunt % (Auto) 16.1 % 11/06/22 16:42 Eos % (Auto) 0.0 % 11/06/22 16:42 Baso % (Auto) 0.1 % 11/06/22 16:42 Neut # (Auto) 13.87 10^3/uL (1.8-7.7) H 11/06/22 16:42 Lymph # (Auto) 0.4 10^3/uL (0.8-4.8) L 11/06/22 16:42 Hunt # (Auto) 2.8 10^3/uL (0.2-0.9) H 11/06/22 16:42 Eos # (Auto) 0.0 10^3/uL (0.0-0.8) 11/06/22 16:42 Baso # (Auto) 0.0 10^3/uL (0.0-0.1) 11/06/22 16:42 Nucleated RBC % (auto) 0 % 11/06/22 16:42 Nucleated RBCs # 0.0 /100WBC 11/06/22 16:42 Specimen Type Arterial 11/06/22 16:15 Sample Site Radial, right 11/06/22 16:15 ABG pH 7.42 (7.35-7.45) 11/06/22 16:15 ABG pCO2 35.1 mmHg (35-45) 11/06/22 16:15 ABG pO2 56.5 mmHg (80.0-100.0) L 11/06/22 16:15 ABG HCO3 22.8 mmol/L (22-26) 11/06/22 16:15 ABG O2 Saturation 89.7 11/06/22 16:15 ABG Base Excess -1.4 mmol/L (-2.0-2.0) 11/06/22 16:15 Lei Test Pos 11/06/22 16:15 A-a O2 Gradient 6.2 mmHg (5-10) 11/06/22 16:15 Hematocrit 27.1 % (42-52) L 11/06/22 16:15 Hgb O2 Saturation 87.2 % (95-100) L 11/06/22 16:15 Carboxyhemoglobin 2.2 %THgb (0.4-20.1) 11/06/22 16:15 Methemoglobin 0.6 % (0.4-1.5) 11/06/22 16:15 Total Hemoglobin 8.8 g/dL (14-18) L 11/06/22 16:15 Sodium 135.0 mmol/L (131-143) 11/06/22 16:15 Potassium 4.3 mmol/L (3.5-5.0) 11/06/22 16:15 Glucose 522.0 mg/dL (70-115) H 11/06/22 16:15 Ionized Calcium 1.2 mmol/L (1.1-1.4) 11/06/22 16:15 O2 Delivery Device Nc 11/06/22 16:15 O2 Liters/Min 5.0 % 11/06/22 16:15 Wire Coiler ID [place] 11/06/22 16:15 Sodium 133 mmol/L (136-145) L 11/06/22 16:42 Potassium 4.4 mmol/L (3.5-5.1) 11/06/22 16:42 Chloride 96 mmol/L (98-107) L 11/06/22 16:42 Carbon Dioxide 21 mmol/L (22-29) L 11/06/22 16:42 Anion Gap 20.4 (5-19) H 11/06/22 16:42 BUN 32 mg/dL (8-23) H 11/06/22 16:42 Creatinine 1.3 mg/dL (0.7-1.2) H 11/06/22 16:42 GFR Calculation Not Reportable 11/06/22 16:42 Glucose 493 mg/dL (65-115) H 11/06/22 16:42 Calculated Osmolality 305 mOsm/kg (285-295) H 11/06/22 16:42 Calcium 9.0 mg/dL (8.5-10.5) 11/06/22 16:42 Total Bilirubin 0.4 mg/dL (0.15-1.2) 11/06/22 16:42 AST 30 U/L (0-40) 11/06/22 16:42 ALT 12 U/L (0-41) 11/06/22 16:42 Alkaline Phosphatase 111 U/L (40-130) 11/06/22 16:42 Total Protein 7.1 g/dL (6.6-8.7) 11/06/22 16:42 Albumin 4.4 g/dL (3.5-5.2) 11/06/22 16:42 Globulin 2.7 g/dL (1.3-4.6) 11/06/22 16:42 Coronavirus 229E (PCR) Not detected (NOT DETECT) 11/06/22 16:06 Influenza Type A Ag negative (Negative) 11/06/22 16:06 Influenza Type B Ag negative (Negative) 11/06/22 16:06 SARS-CoV-2 (PCR) Not detected (NOT DETECT) 11/06/22 16:06 Discharge Plan Discharge Patient Disposition: Admitted As Inpatient Admit Provider: Yung Morrison Clinical Impression: Pneumonia, COPD (chronic obstructive pulmonary disease), Acute exacerbation of chronic obstructive airways disease, Atrial fibrillation Condition: Stable Coding Level of Care Code ED 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
[2022-11-06 17:01] LABS: Influenza A by IFA negative (Negative); Influenza B by IFA negative (Negative)
[2022-11-06] MEDS: cefTRIAXone 1,000 MG in sodium chloride 0.9% (plus) 50 ML 100 MG IV (17:11)
[2022-11-06 17:12] LABS: Basophils % 0.1 %; Hematocrit 29.3 % (42.0-52.0); Hemoglobin 9.1 g/dL (11.7-16.6); Lymphocytes # 0.4 10^3/uL (0.8-4.8); Lymphocytes % 2.1 %; Mean Corpuscular HGB Conc 31.1 g/dL (30.0-36.0); Mean Corpuscular Hemoglobin 28.8 pg (28.0-34.0); Mean Corpuscular Volume 92.7 fl (80-94); Mean Platelet Volume 11.6 fL (7.4-10.4); Monocytes # 2.8 10^3/uL (0.2-0.9); Monocytes % 16.1 %; Neutrophils # 13.87 10^3/uL (1.8-7.7); Neutrophils % 79.1 %; Nucleated Red Blood Cells % 0 %; Platelet Count 215 10^3/cmm (130-400); Red Blood Count 3.16 10^6/uL (4.1-5.3); Red Cell Distribution Width 16.6 % (12.1-15.1); White Blood Count 17.5 10^3/uL (4.0-10.0)
[2022-11-06 17:34] LABS: Alanine Aminotransferase 12 U/L (0-41); Albumin Level 4.4 g/dL (3.5-5.2); Alkaline Phosphatase 111 U/L (40-130); Anion Gap 20.4 (5-19); Aspartate Amino Transferase 30 U/L (0-40); Blood Urea Nitrogen 32 mg/dL (8-23); Carbon Dioxide 21 mmol/L (22-29); Chloride 96 mmol/L (98-107); Globulin 2.7 g/dL (1.3-4.6); Glucose 493 mg/dL (65-115); Osmolality Calculated 305 mOsm/kg (285-295); Potassium 4.4 mmol/L (3.5-5.1); Sodium 133 mmol/L (136-145); Total Bilirubin 0.4 mg/dL (0.15-1.2); Total Protein 7.1 g/dL (6.6-8.7)
[2022-11-06] MEDS: azithromycin 500 MG in sodium chloride 0.9% 250 ML 250 MG IV (18:11)
[2022-11-06 18:23] LABS: Adenovirus Not Detected (NOT DETECT); Chlamydia Pneumoniae Not Detected (NOT DETECT); Coronavirus 229E,HKU1,NL63,OC4 Not Detected (NOT DETECT); Human Metapneumovirus Not Detected (NOT DETECT); Human Rhinovirus/Enterovirus Not Detected (NOT DETECT); Influenza A Not Detected (NOT DETECT); Influenza A H1 Not Detected (NOT DETECT); Influenza A H1-2009 Not Detected (NOT DETECT); Influenza A H3 Not Detected (NOT DETECT); Influenza B Not Detected (NOT DETECT); Mycoplasma Pneumoniae Not Detected (NOT DETECT); Parainfluenza Virus Type 1 Not Detected (NOT DETECT); Parainfluenza Virus Type 2 Not Detected (NOT DETECT); Parainfluenza Virus Type 3 Not Detected (NOT DETECT); Parainfluenza Virus Type 4 Not Detected (NOT DETECT); Respiratory Syncytial Virus A Not Detected (NOT DETECT); Respiratory Syncytial Virus B Not Detected (NOT DETECT); SARS-COV-2 Not Detected (NOT DETECT)
[2022-11-06] MEDS: dilTIAZem 5 mg/mL SDV 5 mL 15 MG IVP (18:30)
[2022-11-06] MEDS: levalbuterol 0.63 mg/3 mL Neb INHALATION (18:36)
--- NOTE | 2022-11-06 18:50 | PM.HP ---
Providers/Chief Complaint Admitting Physician: Yung Morrison MD Primary Care Provider: Paola Moore MD Chief Complaint: pneumonia History of Present Illness Anuj Irving is a 77 year old male with PMH of ?COPD, atrial fibrillation, coronary artery disease, diabetes mellitus, hypertension, ischemic cardiomyopathy, HFrEF,moderate aortic stenosis came in today with chief complaint of worsening shortness of breath, going on for the last few days, accompanied with mild productive cough, denied any fever chest pain, chills headache. Later in the ER patient was also found to be in A-fib with RVR, for which she had to be started on Cardizem drip. X-ray chest showed: ?Increasing/worsening left mid and lower lung consolidation.Small bilateral pleural effusions slightly worse on the right versus the left. Persistent right basilar consolidation. Labs: WBC 17.2, H&H 9.1/ , PLT : 215 , serum sodium 133 serum potassium 4.4, BUN 32 serum creatinine 1.3, ABG: pH 7.42 PCO2 35, PO2 56, on 5 LS Patient was placed on BiPAP in the ER for respiratory distress, as well as she was given 1 dose of ceftriaxone azithromycin. Review of Systems General: Reports: 10 or more systems reviewed and unremarkable except in HPI and below Const: Denies: fever(s), chills, body aches, change in appetite or diaphoresis Card: Reports: palpitations, dyspnea on exertion and orthopnea; Denies: edema, swelling of feet/ankles or leg pain with exertion Resp: Reports: dyspnea; Denies: pain on inspiration GI: Denies: abdominal pain, nausea, vomiting, diarrhea or constipation : Denies: flank pain or difficulty urinating Musc: Denies: back pain, extremity pain or extremity swelling Neuro: Denies: headache(s), difficulty walking or confusion Medications/Allergies Home Medications Medication Instructions Recorded Confirmed Last Taken Type cholecalciferol (vitamin D3) 25 25 mcg PO DAILY 07/12/21 09/16/22 09/09/22 History mcg (1,000 unit) capsule (Vitamin D3) docusate sodium 100 mg capsule 100 - 200 mg PO DAILY PRN 07/12/21 09/16/22 06/20/22 History Constipation omeprazole 40 mg capsule,delayed 40 mg PO BID 07/12/21 09/16/22 09/10/22 History release carboxymethylcellulose sodium 1 % 1 drp ophthalmic (eye) BID PRN Dry 11/26/21 09/16/22 Unknown History eye liquid gel drops (Refresh Eye(S) Liquigel) ferrous gluconate 324 mg (38 mg 324 mg PO BID 11/26/21 09/16/22 09/10/22 History iron) tablet fluticasone 100 mcg-salmeterol 50 1 inh inhalation BID 11/26/21 09/16/22 09/09/22 History mcg/dose blistr powdr for inhalation (Advair Diskus) furosemide 40 mg tablet (Lasix) 40 mg PO QAM 11/26/21 09/16/22 09/10/22 History ipratropium 20 mcg-albuterol 100 1 puff inhalation Q6H PRN 11/26/21 09/16/22 Unknown History mcg/actuation mist for inhalation Shortness Of Breath albuterol sulfate 90 mcg/actuation 2 inh inhalation Q4H PRN shortness 08/16/22 09/16/22 Unknown Rx aerosol inhaler of breath or wheezing #8.5 grams amlodipine 10 mg tablet 10 mg PO DAILY #30 tabs 09/15/22 11/07/22 Unknown Rx apixaban 5 mg tablet (Eliquis) 2.5 mg PO BID #30 tabs 09/15/22 11/07/22 09/10/22 Rx doxycycline hyclate 100 mg capsule 100 mg PO BID 10 days #20 caps 11/05/22 Unknown Rx ipratropium 0.5 mg-albuterol 3 mg 3 ml inhalation Q4H PRN shortness 11/05/22 Unknown Rx (2.5 mg base)/3 mL nebulization of breath or wheezing #90 mL soln prednisone 20 mg tablet 20 mg PO TID #15 tabs 11/05/22 Unknown Rx atorvastatin 80 mg tablet 80 mg PO QPM 11/07/22 11/07/22 Unknown History bacitracin-polymyxin B 500 1 applic ophthalmic (eye) QID 11/07/22 11/07/22 Unknown History unit-10,000 unit/gram eye ointment glimepiride 4 mg tablet 2 mg PO DAILY 11/07/22 11/07/22 Unknown History insulin glargine 100 unit/mL (3 10 unit SUBCUT BID 11/07/22 11/07/22 Unknown History mL) subcutaneous pen (Lantus Solostar U-100 Insulin) pcsyrpsq-iag-luceh acid 300 1 tab PO DAILY 11/07/22 11/07/22 Unknown History mcg-lycopene 600 mcg-lutein 300 mcg tablet (Centrum Silver Men) Allergies Allergy/AdvReac Type Severity Reaction Status Date / Time No Known Allergies Allergy Verified 11/05/22 15:05 PFSH Acute PFSH: Medical History (Updated 11/06/22 @ 18:57 by Yung Morrison MD) Abdominal pain Acute bacterial conjunctivitis of left eye Acute exacerbation of chronic obstructive pulmonary disease (COPD) Acute hyperkalemia Acute kidney injury Acute renal failure NADER (acute kidney injury) Anemia Aortic stenosis Atrial fibrillation Bradycardia Chronic kidney failure Congestive heart failure (CHF) COPD (chronic obstructive pulmonary disease) COPD (chronic obstructive pulmonary disease) Coronary artery disease Diabetes mellitus Diarrhea Digoxin overdose HFrEF (heart failure with reduced ejection fraction) HTN (hypertension) Hyperkalemia Hypomagnesemia Hyponatremia Hypoxia Ischemic cardiomyopathy Moderate aortic stenosis NSTEMI (non-ST elevated myocardial infarction) Pneumonia Poisoning by calcium-channel blockers Rhabdomyolysis Sepsis Suspected 2019-nCoV infection Symptomatic bradycardia Vomiting Surgical History History of mitral valve replacement with bioprosthetic valve 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 Family History Mother Stroke Denies family history of Diabetes CAD (coronary artery disease) Clotting disorder Dementia Social History Smoking and tobacco status: light tobacco smoker Quit status (tobacco): has quit using tobacco Year quit tobacco: 2016 Former quit date comment: smoked 1 pack per day x 36 years Alcohol intake: current Household members: spouse Housing: House 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 Vital Signs Temp 98.2 F 11/06/22 15:50 Pulse 122 H 11/06/22 18:43 Resp 30 H 11/06/22 18:43 BP 114/43 11/06/22 18:43 Pulse Ox 91 11/06/22 18:43 O2 Del Method BiPAP 11/06/22 18:43 O2 Flow Rate 6 11/06/22 16:59 FiO2 60 11/06/22 18:35 11/06/22 11/06/22 11/06/22 06:59 14:59 22:59 Intake Total 50 / 50 Balance 50 / 50 Weight last 48 hrs Weight 64.41 kg Physical Exam Const: COMMON NORMALS: patient oriented x3 HENMT: COMMON NORMALS: normocephalic and atraumatic HEAD & SCALP: normocephalic and atraumatic Resp: OTHER: Labored breathing, use of accessory muscles, tripod position, bilateral rhonchi bilateral wheezing Cardio: OTHER: Irregularly irregular rhythm S1-S2 variable intensity GI: COMMON NORMALS: Normal to inspection, nondistended, normoactive bowel sounds present, Soft to palpation, non-tender, No hepatosplenomegaly present and no masses AUSCULTATION: Yes normoactive bowel sounds PALPATION: Yes Soft to palpation and Yes No hepatosplenomegaly present RECTAL EXAM: Yes deferred Extremity: COMMON NORMALS: no clubbing, cyanosis or edema and no pedal edema Neuro: COMMON NORMALS: patient oriented x3 Data 11/07/22 03:38 11/07/22 03:38 Micro: Microbiology 11/06/22 16:50 Blood Culture - Preliminary Blood SPECIMEN COLLECTED 11/06/22 16:42 Blood Culture - Preliminary Blood SPECIMEN COLLECTED A&P Assessment and plan (1) Pneumonia: (2) COPD exacerbation: (3) Atrial fibrillation with RVR: (4) Chronic kidney disease (CKD), stage III (moderate): (5) Respiratory failure with hypoxia: (6) HTN (hypertension): Plan 77 year old male with PMH of ?COPD, atrial fibrillation, coronary artery disease, diabetes mellitus, hypertension, ischemic cardiomyopathy, HFrEF,moderate aortic stenosis came in today with chief complaint of worsening shortness of breath, going on for the last few days, accompanied with mild productive cough, denied any fever chest pain, chills headache. Later in the ER patient was also found to be in A-fib with RVR, for which she had to be started on Cardizem drip. Assessment: Acute on chronic respiratory failure with hypoxia secondary to pneumonia and COPD exacerbation. Follow blood culture Sputum Gram stain and culture Urine Legionella antigen Bacterial antigen panel MRSA PCR Currently on broad-spectrum antibiotic vancomycin and Zosyn Monitor x-ray chest as needed COPD exacerbation secondary to pneumonia: Currently on Solu-Medrol IV DuoNebs BiPAP Mucomyst inhalation Mucinex p.o. Supplemental oxygen as needed A-fib with RVR: Has been started on Cardizem drip Continue Eliquis for Ac Continue telemetry monitoring HFReF Currently compensated Monitor intake output charting Monitor daily weight Likely CKD stage III Admission serum creatinine is 1.3 Monitor BMP Avoid nephrotoxic's Monitor and output charting Diabetes: MDSSI Monitor fingerstick glucose CODE STATUS: Full code DVT prophylaxis: Currently on Eliquis Attestations Medical Necessity Statement*: Patient needs to be in hospital for management of respiratory failure with hypoxia.Anticipated length of stay greater 2 midnights Coding Level of Care Code 61553 Diagnoses Pneumonia J18.9 COPD exacerbation J44.1 Atrial fibrillation with RVR I48.91 Chronic kidney disease (CKD), stage III (moderate) N18.30 Respiratory failure with hypoxia J96.91 HTN (hypertension) I10
[2022-11-06] MEDS: vancomycin 1,000 MG in sodium chloride 0.9% 250 ML 250 MG IV (19:42)
[2022-11-06] MEDS: dilTIAZem 100 MG in sodium chloride 0.9% (add-van) 100 ML IV (20:31)
[2022-11-06] MEDS: sodium chloride 0.9% 1,000 ML 100 ML IV (21:02)
[2022-11-06] MEDS: piperacillin-tazobactam 3.375 GM in sodium chloride 0.9% (plus) 50 ML IV (21:09)
[2022-11-06] MEDS: apixaban 5 mg Tablet 2.5 MG PO (21:11)
[2022-11-07] VITALS (85 sets, daily range): BP systolic 118–162; BP diastolic 50–94; PULSE 83–117; RESP 17–39; TEMP 36.2–36.8; O2SAT 86–99; BMI 22.5
[2022-11-07] MEDS: piperacillin-tazobactam 3.375 GM in sodium chloride 0.9% (plus) 50 ML IV ×3 (04:07→20:28)
[2022-11-07 04:16] LABS: Basophils % 0.1 %; Hematocrit 30.3 % (42.0-52.0); Hemoglobin 9.2 g/dL (11.7-16.6); Lymphocytes # 0.3 10^3/uL (0.8-4.8); Mean Corpuscular HGB Conc 30.4 g/dL (30.0-36.0); Mean Corpuscular Hemoglobin 28.9 pg (28.0-34.0); Mean Corpuscular Volume 95.3 fl (80-94); Mean Platelet Volume 11.5 fL (7.4-10.4); Monocytes # 3.4 10^3/uL (0.2-0.9); Monocytes % 12.4 %; Neutrophils # 22.33 10^3/uL (1.8-7.7); Neutrophils % 82.2 %; Nucleated Red Blood Cells % 0 %; Platelet Count 307 10^3/cmm (130-400); Red Blood Count 3.18 10^6/uL (4.1-5.3); Red Cell Distribution Width 16.8 % (12.1-15.1); White Blood Count 27.2 10^3/uL (4.0-10.0)
[2022-11-07 04:42] LABS: Lactic Sepsis W/Reflex 2.7 mmol/L (0.5-2.2)
[2022-11-07 04:43] LABS: Alanine Aminotransferase 12 U/L (0-41); Albumin Level 4.1 g/dL (3.5-5.2); Alkaline Phosphatase 101 U/L (40-130); Anion Gap 19.7 (5-19); Aspartate Amino Transferase 31 U/L (0-40); Blood Urea Nitrogen 41 mg/dL (8-23); Calcium 8.7 mg/dL (8.5-10.5); Carbon Dioxide 20 mmol/L (22-29); Chloride 96 mmol/L (98-107); Globulin 2.9 g/dL (1.3-4.6); Magnesium 2.4 mg/dL (1.7-2.3); Osmolality Calculated 307 mOsm/kg (285-295); Potassium 4.7 mmol/L (3.5-5.1); Sodium 131 mmol/L (136-145); Total Bilirubin 0.4 mg/dL (0.15-1.2)
[2022-11-07 04:48] LABS: Procalcitonin 1.21 ng/mL (0-0.5)
[2022-11-07 04:55] LABS: Glucose 546 mg/dL (65-115)
[2022-11-07] MEDS: insulin lispro 100 unit/1 mL 18 UNIT SUBCUT (05:28)
--- NOTE | 2022-11-07 05:29 | XRR_ITS ---
PROCEDURE INFORMATION: Exam: XR Chest Exam date and time: 11/07/2022 5:57 AM Age: 77 years old Clinical indication: Shortness of breath; Prior surgery; Surgery date: 6+ months; Surgery type: Cabg; Additional info: SOB TECHNIQUE: Imaging protocol: Radiologic exam of the chest. Views: 1 view. COMPARISON: CR XR chest 1V portable [id number] 11/06/2022 4:14 PM FINDINGS: Lungs: Persistent right basilar consolidation. Increasing/worsening left mid and lower lung consolidation. Pleural spaces: Small bilateral pleural effusions slightly worse on the right versus the left. Heart/Mediastinum: Postsurgical changes in the mediastinum. Prosthetic heart valve. The cardiac silhouette is mildly enlarged, similar to prior exam. Bones/joints: Median sternotomy wires noted. XR/XR chest 1V portable [id number] IMPRESSION: 1. Increasing/worsening left mid and lower lung consolidation. 2. Small bilateral pleural effusions slightly worse on the right versus the left. 3. Persistent right basilar consolidation.
[2022-11-07 05:36] LABS: ABG PCO2 45.6 mmHg (35-45); ABG PH Result 7.26 (7.35-7.45); Arterial Blood Gas Hematocrit 29.1 % (42-52); Base Excess ABG -6.2 mmol/L (-2.0-2.0); Blood Gas Allen Test Pos; Blood Gas Operator Identificat JB; Blood Gas Sample Site Radial, right; Blood Gas Sample Type Arterial; Carboxyhemoglobin 1.7 %THgb (0.4-20.1); HCO3 ABG 20.6 mmol/L (22-26); HGB O2 Sat 93.1 % (95-100); Ionized Calcium Level - ABG 1.2 mmol/L (1.1-1.4); Methemoglobin 0.5 % (0.4-1.5); Oxygen Device VENT; Oxygen Saturation ABG 95.2; PO2 ABG 80.6 mmHg (80.0-100.0); Potassium Level - ABG 4.8 mmol/L (3.5-5.0); Total Hemoglobin 9.5 g/dL (14-18)
[2022-11-07 05:37] LABS: Alveolar-Arterial Oxygen Gradi 51.1 mmHg (5-10)
[2022-11-07 05:39] LABS: Estmated Average Glucose 226; Hemoglobin A1C 9.5 % (4.0-6.0)
[2022-11-07] MEDS: FUROsemide 10 mg/mL SDV 4mL 40 MG IVP ×2 (05:43→15:12)
[2022-11-07 05:59] LABS: Reflex Lactate Order REFLEX LACTIC ORDERD
[2022-11-07 06:26] LABS: Glucose Point of Care 571 mg/dL (70-110)
[2022-11-07] MEDS: insulin regular-human 250 UNIT in sodium chloride 0.9% 250 ML 13 UNIT IV (07:37)
[2022-11-07] MEDS: acetylcysteine 200 mg/mL MDV 10 mL INHALATION ×4 (07:54→19:59)
[2022-11-07] MEDS: ipratropium-albuterol 3 mL Neb INHALATION ×4 (07:54→19:59)
[2022-11-07] MEDS: budesonide 0.5 mg/2 mL Neb INHALATION ×2 (07:54→19:59)
[2022-11-07] MEDS: sodium chloride 0.9% 1,000 ML 50 ML IV (07:57)
[2022-11-07 08:07] LABS: Glucose Point of Care 494 mg/dL (70-110)
--- NOTE | 2022-11-07 08:14 | PC.PHAR ---
MEDICATIONS VERIFIED USING [facility] LIST AND BY PTS - PT HAS NOT PICKED UP DOXYCYCLINE HYCLATE 100 MG, PREDNISONE 20 MG OR IPRATROPIUM SOLUTION FROM THE PHARMACY YET WRITTEN 11/05/22
[2022-11-07] MEDS: amlodipine 10 mg Tablet PO (08:34)
[2022-11-07] MEDS: apixaban 5 mg Tablet 2.5 MG PO ×2 (08:34→20:27)
[2022-11-07] MEDS: guaiFENesin 600 mg Tablet 1200 MG PO (08:34)
[2022-11-07] MEDS: LORazepam 2 mg/mL INJ 1 mL 1 MG IVP ×3 (08:38→20:42)
[2022-11-07 08:43] LABS: Glucose Point of Care > 600 mg/dL (70-110)
[2022-11-07 08:46] LABS: Anion Gap 20.2 (5-19); Blood Urea Nitrogen 43 mg/dL (8-23); Carbon Dioxide 21 mmol/L (22-29); Chloride 100 mmol/L (98-107); Creatinine Clr Calc Pharmacy 35.4061; Glucose 453 mg/dL (65-115); Osmolality Calculated 315 mOsm/kg (285-295); Potassium 4.2 mmol/L (3.5-5.1); Sodium 137 mmol/L (136-145)
--- NOTE | 2022-11-07 08:57 | PC.NURSE ---
Upon morning assessment, patient foind to be tachypnic, rate in the mid 30's. Laboreded brathing while on bipap. Nurse lerted Dr grady and recieved orders for ativan.
[2022-11-07 09:37] LABS: Glucose Point of Care 360 mg/dL (70-110)
[2022-11-07 11:44] LABS: Glucose Point of Care 160 mg/dL (70-110)
[2022-11-07 11:44] LABS: Glucose Point of Care 269 mg/dL (70-110)
[2022-11-07 12:42] LABS: Glucose Point of Care 96 mg/dL (70-110)
[2022-11-07] MEDS: dextrose 5%-ns + KCl 20 20 MEQ/1,000 ML BAG 75 MEQ IV (13:14)
[2022-11-07 13:40] LABS: Glucose Point of Care 72 mg/dL (70-110)
--- NOTE | 2022-11-07 13:57 | P.PN_ITS ---
Subjective Subjective: Patient was seen and examined this morning, continued to be significantly short of breath, currently extremely tachypneic on BiPAP. Medications: Medication Review Details: Generic Name Dose Route Start Last Admin Trade Name Jaclyn PRN Reason Stop Dose Admin Acetylcysteine 200 mg 11/06/22 20:00 11/07/22 11:32 Acetylcysteine 2 00 Mg/Ml Mdv 10 Ml INHALATION 200 mg Q4H.RESPIRATORY S CH Administration Albuterol/Ipratrop ium 3 ml 11/06/22 20:00 11/07/22 11:28 Ipratropium-Albu terol 3 Ml Neb INHALATION 3 ml QID.RESPIRATORY S CH Administration Amlodipine Besylat e 10 mg 11/07/22 09:00 11/07/22 08:34 Amlodipine 10 Mg Tablet PO 10 mg DAILY SHIELA Administration Apixaban 2.5 mg 11/06/22 20:00 11/07/22 08:34 Apixaban 5 Mg Ta blet PO 2.5 mg BID@0800,2000 SHIELA Administration Budesonide 0.5 mg 11/06/22 20:00 11/07/22 07:54 Budesonide 0.5 M g/2 Ml Neb INHALATION 0.5 mg BID.RESPIRATORY S CH Administration Guaifenesin 1,200 mg 11/07/22 09:00 11/07/22 08:34 Guaifenesin 600 Mg Tablet PO 1,200 mg BID SHIELA Administration Diltiazem HCl 100 mg/ Sodium 100 mls @ 0 mls/h r 11/06/22 18:45 11/07/22 04:19 Chloride IV 0 mg/hr .Q0M SHIELA 0 mls/hr Titration Protocol Per Protocol Vancomycin HCl 1,0 00 mg/ 250 mls @ 250 mls /hr 11/06/22 19:00 11/06/22 20:42 Sodium Chloride IV Infused Q24H SHIELA Infusion Protocol Piperacillin Sod/T azobactam 50 mls @ 12.5 mls /hr 11/06/22 20:00 11/07/22 11:40 Sod 3.375 gm/ So dium Chloride IV 12.5 mls/hr Q8H SHIELA Administration Protocol Insulin Human Regu lar 250 unit 252.5 mls @ 0 mls /hr 11/07/22 06:30 11/07/22 12:30 / Sodium Chlorid e IV 3.8 mls/hr .Q0M SHIELA Titration Protocol Per Protocol Potassium Chloride /Dextrose/Sod Cl 20 meq in 1,000 m ls @ 75 mls/hr 11/07/22 13:15 11/07/22 13:14 Dextrose 5%-Ns + Kcl 20 IV 75 mls/hr .[id number] SHIELA Administration Lorazepam 1 mg 11/07/22 08:09 11/07/22 08:38 Lorazepam 2 Mg/M l Inj 1 Ml IVP 1 mg Q4H PRN Administration ANXIETY Methylprednisolone Sodium Succinate 60 mg 11/06/22 19:00 11/07/22 13:15 Methylprednisolo ne Sod Succ 125 Mg /2 Ml Inj IVP 60 mg Q6H SHIELA Administration Vitals/I&O/Wt Last Vital Signs Temp 97.9 F 11/07/22 12:30 Pulse 110 H 11/07/22 12:30 Resp 28 H 11/07/22 12:30 BP 130/64 11/07/22 12:30 Pulse Ox 91 11/07/22 12:30 O2 Del Method BiPAP 11/07/22 11:20 O2 Flow Rate 6 11/07/22 08:00 FiO2 40 11/07/22 12:00 11/06/22 11/07/22 11/07/22 22:59 06:59 14:59 Intake Total 420.917 / 342.639 3700.542 / 1485.459 628.016 / 628.016 Output Total 300 / 300 600 / 900 550 / 550 Balance 120.917 / 120.917 464.542 / 585.459 78.016 / 78.016 Weight last 48 hrs Weight 65.317 kg Weight 64.455 kg Weight 64.41 kg Physical Exam HENMT: COMMON NORMALS: normocephalic and atraumatic HEAD & SCALP: normocephalic and atraumatic Resp: OTHER: Labored breathing, use of accessory muscles, tripod position, bilateral rhonchi bilateral wheezing Cardio: OTHER: Irregularly irregular rhythm S1-S2 variable intensity GI: COMMON NORMALS: Normal to inspection, nondistended, normoactive bowel sounds present, Soft to palpation, non-tender, No hepatosplenomegaly present and no masses AUSCULTATION: Yes normoactive bowel sounds PALPATION: Yes Soft to palpation and Yes No hepatosplenomegaly present RECTAL EXAM: Yes deferred Extremity: COMMON NORMALS: no clubbing, cyanosis or edema and no pedal edema Urinary Catheter Management: Ortiz: Cath Placed During This Visit: yes Reason for Continuing Indwelling Catheter: Accurate Measurement of Urinary Output in Critically Ill Patients Urinary Catheter Date of Insertion: 11/07/22 Urinary Catheter Time of Insertion: 05:30 Data 11/07/22 03:38 11/07/22 13:26 Micro: Microbiology 11/06/22 16:50 Blood Culture - Preliminary Blood SPECIMEN COLLECTED 11/06/22 16:42 Blood Culture - Preliminary Blood SPECIMEN COLLECTED A&P Assessment and plan (1) Pneumonia: (2) COPD exacerbation: (3) Atrial fibrillation with RVR: (4) Chronic kidney disease (CKD), stage III (moderate): (5) Respiratory failure with hypoxia: (6) HTN (hypertension): Plan 77 year old male with PMH of ?COPD, atrial fibrillation, coronary artery dis ease, diabetes mellitus, hypertension, ischemic cardiomyopathy, HFrEF,moderate aortic stenosis came in today with chief complaint of worsening shortness of breath, going on for the last few days, accompanied with mild productive cough, denied any fever chest pain, chills headache. Later in the ER patient was also found to be in A-fib with RVR, for which she had to be started on Cardizem drip. Assessment: Acute on chronic respiratory failure with hypoxia secondary to pneumonia and COPD exacerbation. Follow blood culture Sputum Gram stain and culture Urine Legionella antigen Bacterial antigen panel MRSA PCR Currently on broad-spectrum antibiotic vancomycin and Zosyn Monitor x-ray chest as needed DKA: Patient was started on insulin drip Currently on DKA protocol (monitor BMP every 4 hours monitor fingerstick glucose) Start D5 NS when blood sugar is less than 200 Monitor and replace serum potassium keep above 4meq COPD exacerbation secondary to pneumonia: Currently on Solu-Medrol IV DuoNebs BiPAP Mucomyst inhalation Mucinex p.o. Supplemental oxygen as needed A-fib with RVR: Has been started on Cardizem drip On p.o. Cardizem Continue Eliquis for Ac Continue telemetry monitoring HFReF Continue Lasix 40 IV daily Monitor intake output charting Monitor daily weight Monitor electrolytes Likely CKD stage III Admission serum creatinine is 1.3 Monitor BMP Avoid nephrotoxic's Monitor and output charting Diabetes: MDSSI Monitor fingerstick glucose CODE STATUS: Full code DVT prophylaxis: Currently on Eliquis Attestations Medical Necessity Statement*: Needs to be in hospital for management of respiratory failure. Critical Care Time: The high probability of a clinically significant, sudden or life threatening deterioration of the patient's [] system(s) required my full and direct attention, intervention and personal management. The critical care time is as shown. This time is in addition to time spent performing any reported procedures but includes the following: [x] Data and vital sign review and interpretation [x] Patient assessment, examination and intervention [x] Documentation [x] Medication orders and management Critical Care Time (min): 35 Coding Level of Care Code Critical Care >/= 30 minutes Diagnoses Pneumonia J18.9 COPD exacerbation J44.1 Atrial fibrillation with RVR I48.91 Chronic kidney disease (CKD), stage III (moderate) N18.30 Respiratory failure with hypoxia J96.91 HTN (hypertension) I10
[2022-11-07 13:59] LABS: Anion Gap 18.1 (5-19); Blood Urea Nitrogen 39 mg/dL (8-23); Calcium 9.3 mg/dL (8.5-10.5); Carbon Dioxide 23 mmol/L (22-29); Chloride 103 mmol/L (98-107); Creatinine Clr Calc Pharmacy 35.4061; Glucose 80 mg/dL (65-115); Osmolality Calculated 300 mOsm/kg (285-295); Potassium 3.1 mmol/L (3.5-5.1); Sodium 141 mmol/L (136-145)
[2022-11-07 14:33] LABS: Glucose Point of Care 82 mg/dL (70-110)
[2022-11-07] MEDS: dilTIAZem 30 mg Tablet PO ×2 (14:38→20:28)
--- NOTE | 2022-11-07 15:00 | PC.NURSE ---
Patient's lung sounds intially improved throughout the shift, however, loud crackles have returned. Nurse alerted Dr grady and recived orders for lasix.
[2022-11-07] MEDS: lidocaine 1% 5 ML in potassium chloride premix 100 ML 26.25 ML IV (15:13)
[2022-11-07 16:40] LABS: Glucose Point of Care 237 mg/dL (70-110)
[2022-11-07 17:28] LABS: Anion Gap 18.5 (5-19); Blood Urea Nitrogen 37 mg/dL (8-23); Carbon Dioxide 22 mmol/L (22-29); Chloride 102 mmol/L (98-107); Glucose 199 mg/dL (65-115); Osmolality Calculated 302 mOsm/kg (285-295); Potassium 3.5 mmol/L (3.5-5.1); Sodium 139 mmol/L (136-145)
[2022-11-07] MEDS: insulin lispro 100 unit/1 mL SUBCUT ×2 (17:36→20:57)
--- NOTE | 2022-11-07 18:21 | PC.NURSE ---
Shift SUmmary: Uneventful shift. Patient transitioned from insulin drip to sliding scale. Rested in bed throughout the day. Lung sounds have had coarse crackles all day, sometimes more pronounced but always present. Crackles are worse on the right side.Lasix given. POtassium replaced. Ativan available PRN for anxiety and patient's increased work of breathing. Total urine output has been 1300 mL.
[2022-11-07] MEDS: vancomycin 1,000 MG in sodium chloride 0.9% 250 ML 250 MG IV (18:51)
[2022-11-07 20:41] LABS: Anion Gap 17.6 (5-19); Blood Urea Nitrogen 36 mg/dL (8-23); Calcium 8.9 mg/dL (8.5-10.5); Carbon Dioxide 22 mmol/L (22-29); Chloride 101 mmol/L (98-107); Glucose 167 mg/dL (65-115); Osmolality Calculated 296 mOsm/kg (285-295); Potassium 3.6 mmol/L (3.5-5.1); Sodium 137 mmol/L (136-145)
[2022-11-07 20:53] LABS: Glucose Point of Care 184 mg/dL (70-110)
[2022-11-07] MEDS: insulin glargine 100 units/1 mL 30 UNIT SUBCUT (20:56)
[2022-11-08] VITALS (37 sets, daily range): BP systolic 112–148; BP diastolic 59–90; PULSE 86–126; RESP 24–44; TEMP 37.2–37.6; O2SAT 90–100; BMI 23.1
[2022-11-08 01:48] LABS: Anion Gap 15.7 (5-19); Blood Urea Nitrogen 35 mg/dL (8-23); Calcium 8.9 mg/dL (8.5-10.5); Carbon Dioxide 23 mmol/L (22-29); Chloride 107 mmol/L (98-107); Glucose 78 mg/dL (65-115); Osmolality Calculated 301 mOsm/kg (285-295); Potassium 3.7 mmol/L (3.5-5.1); Sodium 142 mmol/L (136-145)
[2022-11-08] MEDS: piperacillin-tazobactam 3.375 GM in sodium chloride 0.9% (plus) 50 ML IV ×3 (04:03→20:17)
[2022-11-08] MEDS: LORazepam 2 mg/mL INJ 1 mL 1 MG IVP ×2 (04:04→17:50)
[2022-11-08 05:59] LABS: Basophils % 0.1 %; Hematocrit 25.2 % (42.0-52.0); Hemoglobin 7.8 g/dL (11.7-16.6); Lymphocytes # 0.2 10^3/uL (0.8-4.8); Lymphocytes % 1.2 %; Mean Corpuscular Hemoglobin 29.1 pg (28.0-34.0); Mean Platelet Volume 11.7 fL (7.4-10.4); Monocytes % 5.3 %; Neutrophils # 16.04 10^3/uL (1.8-7.7); Neutrophils % 90.3 %; Nucleated Red Blood Cells % 0 %; Platelet Count 168 10^3/cmm (130-400); Red Blood Count 2.68 10^6/uL (4.1-5.3); Red Cell Distribution Width 17.1 % (12.1-15.1); White Blood Count 17.8 10^3/uL (4.0-10.0)
[2022-11-08 06:20] LABS: Alanine Aminotransferase 11 U/L (0-41); Albumin Level 3.5 g/dL (3.5-5.2); Alkaline Phosphatase 61 U/L (40-130); Aspartate Amino Transferase 32 U/L (0-40); Blood Urea Nitrogen 36 mg/dL (8-23); Calcium 8.9 mg/dL (8.5-10.5); Carbon Dioxide 24 mmol/L (22-29); Chloride 107 mmol/L (98-107); Globulin 2.8 g/dL (1.3-4.6); Glucose 145 mg/dL (65-115); Osmolality Calculated 305 mOsm/kg (285-295); Sodium 142 mmol/L (136-145); Total Bilirubin 0.5 mg/dL (0.15-1.2); Total Protein 6.3 g/dL (6.6-8.7)
[2022-11-08] MEDS: acetylcysteine 200 mg/mL MDV 10 mL INHALATION ×3 (07:59→15:22)
[2022-11-08] MEDS: budesonide 0.5 mg/2 mL Neb INHALATION ×2 (07:59→19:21)
[2022-11-08] MEDS: ipratropium-albuterol 3 mL Neb INHALATION ×4 (07:59→19:21)
[2022-11-08 08:01] LABS: Glucose Point of Care 208 mg/dL (70-110)
[2022-11-08] MEDS: insulin lispro 100 unit/1 mL SUBCUT ×4 (08:09→20:15)
[2022-11-08] MEDS: FUROsemide 10 mg/mL SDV 4mL 40 MG IVP (08:09)
[2022-11-08] MEDS: apixaban 5 mg Tablet 2.5 MG PO (08:40)
[2022-11-08 09:31] LABS: Anion Gap 16.1 (5-19); Blood Urea Nitrogen 37 mg/dL (8-23); Calcium 9.2 mg/dL (8.5-10.5); Carbon Dioxide 23 mmol/L (22-29); Chloride 103 mmol/L (98-107); Glucose 198 mg/dL (65-115); Osmolality Calculated 300 mOsm/kg (285-295); Potassium 4.1 mmol/L (3.5-5.1); Sodium 138 mmol/L (136-145)
--- NOTE | 2022-11-08 11:45 | PM.PN ---
Subjective Subjective: Patient was seen and examined this morning continued to be on BiPAP extremely tachypneic, as well as tachycardic. Medications: Medication Review Details: Generic Name Dose Route Start Last Admin Trade Name Jaclyn PRN Reason Stop Dose Admin Acetylcysteine 200 mg 11/06/22 20:00 11/08/22 07:59 Acetylcysteine 2 00 Mg/Ml Mdv 10 Ml INHALATION 200 mg Q4H.RESPIRATORY S CH Administration Albuterol/Ipratrop ium 3 ml 11/06/22 20:00 11/08/22 07:59 Ipratropium-Albu terol 3 Ml Neb INHALATION 3 ml QID.RESPIRATORY S CH Administration Apixaban 2.5 mg 11/06/22 20:00 11/08/22 08:40 Apixaban 5 Mg Ta blet PO 2.5 mg BID@0800,2000 SHIELA Administration Budesonide 0.5 mg 11/06/22 20:00 11/08/22 07:59 Budesonide 0.5 M g/2 Ml Neb INHALATION 0.5 mg BID.RESPIRATORY S CH Administration Diltiazem HCl 30 mg 11/07/22 14:15 11/08/22 10:09 Diltiazem 30 Mg Tablet PO Not Given Q6H SHIELA Furosemide 40 mg 11/08/22 09:00 11/08/22 08:09 Furosemide 10 Mg /Ml Sdv 4ml IVP 40 mg Q24H SHIELA Administration Guaifenesin 1,200 mg 11/07/22 09:00 11/08/22 10:10 Guaifenesin 600 Mg Tablet PO Not Given BID SHIELA Diltiazem HCl 100 mg/ Sodium 100 mls @ 0 mls/h r 11/06/22 18:45 11/08/22 05:14 Chloride IV Infused .Q0M SHIELA Titration Protocol Per Protocol Vancomycin HCl 1,0 00 mg/ 250 mls @ 250 mls /hr 11/06/22 19:00 11/07/22 20:05 Sodium Chloride IV Infused Q24H SHIELA Infusion Protocol Piperacillin Sod/T azobactam 50 mls @ 12.5 mls /hr 11/06/22 20:00 11/08/22 08:03 Sod 3.375 gm/ So dium Chloride IV Infused Q8H SHIELA Infusion Protocol Insulin Human Regu lar 250 unit 252.5 mls @ 0 mls /hr 11/07/22 06:30 11/08/22 05:14 / Sodium Chlorid e IV Infused .Q0M SHIELA Titration Protocol Per Protocol Insulin Glargine 30 unit 11/07/22 21:00 11/07/22 20:56 Insulin Glargine 100 Units/1 Ml SUBCUT 30 unit BEDTIME SHIELA Administration Insulin Human Lisp ro 0 unit 11/07/22 18:00 11/08/22 08:09 Insulin Lispro 1 00 Unit/1 Ml SUBCUT 6 unit WM&BEDTIME SHIELA Administration Protocol Lorazepam 1 mg 11/07/22 08:09 11/08/22 04:04 Lorazepam 2 Mg/M l Inj 1 Ml IVP 1 mg Q4H PRN Administration ANXIETY Methylprednisolone Sodium Succinate 60 mg 11/06/22 19:00 11/08/22 07:52 Methylprednisolo ne Sod Succ 125 Mg /2 Ml Inj IVP 60 mg Q6H SHIELA Administration Vitals/I&O/Wt Last Vital Signs Temp 99.6 F 11/08/22 08:00 Pulse 112 H 11/08/22 11:16 Resp 31 H 11/08/22 08:00 BP 137/66 11/08/22 08:00 Pulse Ox 100 11/08/22 11:16 O2 Del Method BiPAP 11/08/22 08:00 O2 Flow Rate 60 11/07/22 20:00 FiO2 50 11/08/22 11:16 11/07/22 11/08/22 11/08/22 22:59 06:59 14:59 Intake Total 701.25 / 1333.066 160 / 1493.066 569 / 569 Output Total 1400 / 2300 1000 / 3300 Balance -698.75 / -966.934 -840 / -1806.934 569 / 569 Weight last 48 hrs Weight 66.814 kg Weight 65.317 kg Weight 64.455 kg Weight 64.41 kg Physical Exam Const: COMMON NORMALS: patient oriented x3 HENMT: COMMON NORMALS: normocephalic and atraumatic HEAD & SCALP: normocephalic and atraumatic Resp: OTHER: Labored breathing, use of accessory muscles, tripod position, bilateral rhonchi bilateral wheezing Cardio: OTHER: Irregularly irregular rhythm S1-S2 variable intensity GI: COMMON NORMALS: Normal to inspection, nondistended, normoactive bowel sounds present, Soft to palpation, non-tender, No hepatosplenomegaly present and no masses AUSCULTATION: Yes normoactive bowel sounds PALPATION: Yes Soft to palpation and Yes No hepatosplenomegaly present RECTAL EXAM: Yes deferred Extremity: COMMON NORMALS: no clubbing, cyanosis or edema and no pedal edema Neuro: COMMON NORMALS: patient oriented x3 Urinary Catheter Management: Ortiz: Cath Placed During This Visit: yes Reason for Continuing Indwelling Catheter: Accurate Measurement of Urinary Output in Critically Ill Patients Urinary Catheter Date of Insertion: 11/07/22 Urinary Catheter Time of Insertion: 05:30 Data 11/08/22 05:20 11/08/22 08:50 Micro: Microbiology 11/06/22 16:42 Blood Culture - Preliminary Blood NEGATIVE TO DATE 11/06/22 16:50 Blood Culture - Preliminary Blood NEGATIVE TO DATE A&P Assessment and plan (1) Pneumonia: (2) COPD exacerbation: (3) Atrial fibrillation with RVR: (4) Chronic kidney disease (CKD), stage III (moderate): (5) Respiratory failure with hypoxia: (6) HTN (hypertension): Plan 77 year old male with PMH of ?COPD, atrial fibrillation, coronary artery disease, diabetes mellitus, hypertension, ischemic cardiomyopathy, HFrEF,moderate aortic stenosis came in today with chief complaint of worsening shortness of breath, going on for the last few days, accompanied with mild productive cough, denied any fever chest pain, chills headache. Later in the ER patient was also found to be in A-fib with RVR, for which she had to be started on Cardizem drip. Assessment: Acute on chronic respiratory failure with hypoxia secondary to pneumonia and COPD exacerbation. Follow blood culture:NTD Sputum Gram stain and culture Urine Legionella antigen Bacterial antigen panel MRSA PCR: Currently on broad-spectrum antibiotic vancomycin and Zosyn Monitor x-ray chest as needed Monitor ABG as needed DKA:Resolved Patient was started on insulin drip Currently on DKA protocol (monitor BMP every 4 hours monitor fingerstick glucose) Start D5 NS when blood sugar is less than 200 Monitor and replace serum potassium keep above 4meq COPD exacerbation secondary to pneumonia: Currently on Solu-Medrol IV DuoNebs BiPAP Mucomyst inhalation Mucinex p.o. Supplemental oxygen as needed A-fib with RVR: Has been started on Cardizem drip On p.o. Cardizem Continue Eliquis for Ac Continue telemetry monitoring HFReF Continue Lasix 40 IV daily Monitor intake output charting Monitor daily weight Monitor electrolytes Likely CKD stage III Admission serum creatinine is 1.3 Monitor BMP Avoid nephrotoxic's Monitor and output charting Diabetes: MDSSI Lantus 30sc daily Monitor fingerstick glucose CODE STATUS: Full code DVT prophylaxis: Currently on Eliquis Attestations Medical Necessity Statement*: In hospital for management of respiratory failure. Coding Level of Care Code 98373 Diagnoses Pneumonia J18.9 COPD exacerbation J44.1 Atrial fibrillation with RVR I48.91 Chronic kidney disease (CKD), stage III (moderate) N18.30 Respiratory failure with hypoxia J96.91 HTN (hypertension) I10
[2022-11-08 12:34] LABS: Glucose Point of Care 201 mg/dL (70-110)
[2022-11-08] MEDS: FUROsemide 10 mg/mL SDV 2mL 20 MG IVP (17:50)
[2022-11-08 19:06] LABS: Glucose Point of Care 239 mg/dL (70-110)
[2022-11-08 20:12] LABS: Glucose Point of Care 237 mg/dL (70-110)
[2022-11-08] MEDS: insulin glargine 100 units/1 mL 30 UNIT SUBCUT (20:15)
[2022-11-08] MEDS: vancomycin 1,000 MG in sodium chloride 0.9% 250 ML 250 MG IV (20:16)
[2022-11-09] VITALS (59 sets, daily range): BP systolic 111–156; BP diastolic 61–95; PULSE 103–128; RESP 5–37; TEMP 36.7; O2SAT 84–100
[2022-11-09 02:16] LABS: ABG PCO2 37.3 mmHg (35-45); Alveolar-Arterial Oxygen Gradi 17.1 mmHg (5-10); Arterial Blood Gas Hematocrit 26.8 % (42-52); Base Excess ABG 5.7 mmol/L (-2.0-2.0); Blood Gas Allen Test Pos; Blood Gas Sample Site Radial, right; Blood Gas Sample Type Arterial; Carboxyhemoglobin 1.6 %THgb (0.4-20.1); HCO3 ABG 29.2 mmol/L (22-26); HGB O2 Sat 94.2 % (95-100); Ionized Calcium Level - ABG 1.3 mmol/L (1.1-1.4); Methemoglobin 0.3 % (0.4-1.5); Oxygen Device BIPAP; PO2 ABG 71.5 mmHg (80.0-100.0); Potassium Level - ABG 2.8 mmol/L (3.5-5.0); Total Hemoglobin 8.7 g/dL (14-18)
[2022-11-09] MEDS: piperacillin-tazobactam 3.375 GM in sodium chloride 0.9% (plus) 50 ML IV ×3 (03:32→20:57)
[2022-11-09 04:07] LABS: Basophils % 0.1 %; Eosinophils % 0.1 %; Hematocrit 29.3 % (42.0-52.0); Hemoglobin 8.8 g/dL (11.7-16.6); Lymphocytes # 0.3 10^3/uL (0.8-4.8); Lymphocytes % 1.6 %; Mean Corpuscular Hemoglobin 28.1 pg (28.0-34.0); Mean Corpuscular Volume 93.6 fl (80-94); Mean Platelet Volume 11.8 fL (7.4-10.4); Monocytes # 0.9 10^3/uL (0.2-0.9); Monocytes % 5.5 %; Neutrophils # 13.85 10^3/uL (1.8-7.7); Neutrophils % 89.2 %; Nucleated Red Blood Cells % 0 %; Platelet Count 185 10^3/cmm (130-400); Red Blood Count 3.13 10^6/uL (4.1-5.3); Red Cell Distribution Width 16.7 % (12.1-15.1); White Blood Count 15.5 10^3/uL (4.0-10.0)
[2022-11-09 04:27] LABS: Alanine Aminotransferase 16 U/L (0-41); Albumin Level 3.8 g/dL (3.5-5.2); Alkaline Phosphatase 88 U/L (40-130); Anion Gap 16.7 (5-19); Aspartate Amino Transferase 32 U/L (0-40); Blood Urea Nitrogen 40 mg/dL (8-23); Calcium 9.7 mg/dL (8.5-10.5); Carbon Dioxide 28 mmol/L (22-29); Chloride 108 mmol/L (98-107); Globulin 3.4 g/dL (1.3-4.6); Glucose 76 mg/dL (65-115); Osmolality Calculated 319 mOsm/kg (285-295); Sodium 150 mmol/L (136-145); Total Bilirubin 0.7 mg/dL (0.15-1.2); Total Protein 7.2 g/dL (6.6-8.7)
[2022-11-09 04:46] LABS: Potassium 2.7 mmol/L (3.5-5.1)
[2022-11-09] MEDS: potassium chloride premix 100 ML 50 MEQ IV (04:55)
[2022-11-09] MEDS: LORazepam 2 mg/mL INJ 1 mL 1 MG IVP ×2 (06:06→20:57)
[2022-11-09 07:09] LABS: Glucose Point of Care 97 mg/dL (70-110)
[2022-11-09] MEDS: acetylcysteine 200 mg/mL MDV 10 mL INHALATION (08:46)
[2022-11-09] MEDS: ipratropium-albuterol 3 mL Neb INHALATION ×4 (08:46→19:30)
[2022-11-09] MEDS: budesonide 0.5 mg/2 mL Neb INHALATION ×2 (08:46→19:30)
[2022-11-09] MEDS: FUROsemide 10 mg/mL SDV 4mL 40 MG IVP ×2 (09:28→19:49)
[2022-11-09 12:18] LABS: Glucose Point of Care 99 mg/dL (70-110)
[2022-11-09 14:13] LABS: Glucose Point of Care 88 mg/dL (70-110)
[2022-11-09] MEDS: dilTIAZem 30 mg Tablet PO (15:12)
--- NOTE | 2022-11-09 15:19 | CTR_ITS ---
PROCEDURE INFORMATION: Exam: CT Chest Without Contrast; Diagnostic Exam date and time: 11/09/2022 9:50 PM Age: 77 years old Clinical indication: Shortness of breath; Prior surgery; Surgery type: Cabg. Mitral valve; Patient HX: Worsening SOB. Left lung consolidation noted on cxr. History of copd. ; Additional info: Evalute for empyema TECHNIQUE: Imaging protocol: Diagnostic computed tomography of the chest without contrast. Sagittal and coronal reformatted images were created and reviewed. Radiation optimization: All CT scans at this facility use at least one of these dose optimization techniques: automated exposure control; mA and/or kV adjustment per patient size (includes targeted exams where dose is matched to clinical indication); or iterative reconstruction. REPORTING DATA: Count of CT and Cardiac NM exams in prior 12 months: This patient has received 6 known CTs and 0 known cardiac nuclear medicine studies in the 12 months prior to the current study. COM[place]ISON: [place] [id number] 09/10/2022 8:39 PM RADIATION DOSE METRICS: Total DLP (mGy-cm): 371.05 FINDINGS: Limitations: Evaluation of the mediastinum and vasculature is limited without intravenous contrast. Tubes, catheters and devices: A prosthetic mitral valve is stable. Trachea: Debris layering in the left mainstem bronchus. This may represent bronchial secretions. Lungs: Extensive ground-glass opacities with areas of more confluency alveolar airspace disease with air bronchograms in the left lung diffusely and in the right lower lobe, increased significantly compared with the previous study. There is also worsening reticulonodular interstitial thickening in the right upper lobe and right middle lobe that has also increased. No pulmonary parenchymal nodules or masses. Pleural spaces: Small loculated pleural effusion associated pleural thickening in the posterior/man left hemithorax is stable (series 4, images 18-39). Possible infected pleural fluid or empyema cannot be ruled out. No pneumothorax. Heart: Stable marked enlargement of the heart. Stable calcification of the aortic valve. Coronary arteries: Stable extensive atherosclerotic calcification in the coronary arteries. Esophagus: The esophagus is unremarkable. Mediastinal space: No mediastinal hematoma. No pneumomediastinum. Lymph nodes: Multiple enlarged mediastinal lymph nodes. The largest measures 1.8 cm in short axis, findings are stable (series 4, image 21). Vasculature: Stable moderate atherosclerotic changes in the visualized arteries. No evidence for aortic aneurysm. Pulmonary arteries are unremarkable. Pulmonary veins are unremarkable. Liver: The visualized liver is unremarkable. Gallbladder and bile ducts: No dilatation of the visualized bile ducts. Pancreas: The visualized pancreas is unremarkable. No pancreatic ductal dilatation. Spleen: Calcified granuloma in the spleen. Adrenal glands: The visualized right and left adrenal glands are unremarkable. Kidneys and ureters: The visualized right and left kidneys are unremarkable. Bones/joints: Degenerative changes in the spine and shoulders. Bones are diffusely osteopenic. Poststernotomy changes in the chest. Osseous findings are stable. Soft tissues: No acute abnormality in the extrathoracic soft tissues. Small sebaceous cyst in the left posterior hemithorax is stable measuring 0.9 x 2.3 cm (series 4, image 31). CT/CT chest wo con [id number] IMPRESSION: 1. Extensive ground-glass opacities with areas of more confluency alveolar airspace disease with air bronchograms in the left lung diffusely and in the right lower lobe, increased significantly compared with the previous study. There is also worsening reticulonodular interstitial thickening in the right upper lobe and right middle lobe that has also increased. Findings are concerning for worsening pneumonia, including atypical organisms. Recommend followup chest imaging to insure resolution of these findings. 2. Small loculated pleural effusion associated pleural thickening in the posterior/man left hemithorax is stable. Possible infected pleural fluid or empyema cannot be ruled out. Recommend clinical correlation. 3. Debris layering in the left mainstem bronchus. This may represent bronchial secretions. 4. Stable nonspecific mediastinal lymphadenopathy. This could be reactive in nature. However, followup imaging is recommended to ensure stability/resolution. 5. Incidental/nonacute findings are listed in the report.
--- NOTE | 2022-11-09 15:23 | ECG_ITS ---
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 Measurements Intervals [place] Rate: 126 P: 0 PA: 0 QRS: 79 QRSD: 108 T: 57 QT: 401 QTc: 583 Interpretive Statements ATRIAL FIBRILLATION WITH RAPID VENTRICULAR RESPONSE WITH ABERRANT CONDUCTION OR VENTRICULAR PREMATURE COMPLEXES POSSIBLE ANTERIOR MYOCARDIAL INFARCTION , OF INDETERMINATE AGE [30 ms Q WAVE IN V3/V4, OR R < 0.2 mV IN V4] Compared to ECG 11/06/2022 15:55:30 Ventricular premature complex(es) now present Aberrant conduction of supraventricular beat(s) now present Myocardial infarct finding now present Intraventricular conduction delay no longer present Electronically Signed On 11-09-2022 17:06:48 CDT by Tito Hernandez M.D. [email or web address]
[2022-11-09] MEDS: enoxaparin 60 mg/0.6 mL Syringe SUBCUT (16:08)
[2022-11-09] MEDS: lidocaine 1% 5 ML in potassium chloride premix 100 ML 26.25 ML IV (16:08)
[2022-11-09 16:42] LABS: Troponin(5th) Baseline 344 ng/L (0-15)
[2022-11-09] MEDS: dilTIAZem 100 MG in sodium chloride 0.9% (add-van) 100 ML IV (16:43)
--- NOTE | 2022-11-09 17:23 | ECG_ITS ---
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 Measurements Intervals [place] Rate: 123 P: 0 NE: 0 QRS: 76 QRSD: 120 T: 0 QT: 315 QTc: 451 Interpretive Statements ATRIAL FIBRILLATION WITH RAPID VENTRICULAR RESPONSE POSSIBLE ANTERIOR MYOCARDIAL INFARCTION , OF INDETERMINATE AGE [30 ms Q WAVE IN V3/V4, OR R < 0.2 mV IN V4] Compared to ECG 11/09/2022 15:51:51 Aberrant conduction of supraventricular beat(s) no longer present Ventricular premature complex(es) no longer present Myocardial infarct finding still present Electronically Signed On 11-10-2022 15:08:00 CDT by Tito Hernandez M.D. [id number]
[2022-11-09 18:01] LABS: Glucose Point of Care 244 mg/dL (70-110)
[2022-11-09] MEDS: insulin lispro 100 unit/1 mL SUBCUT ×2 (18:13→22:13)
[2022-11-09] MEDS: guaiFENesin 600 mg Tablet 1200 MG PO (18:13)
--- NOTE | 2022-11-09 18:57 | P.PN_ITS ---
Subjective Subjective: Patient continues to be on BiPAP. Currently saturating 98 to 99%, however attempts to wean off BiPAP have not been started today. Heart rate is uncontrolled ranging between 124 to 127 bpm. Patient is drowsy, easily wakes up to calling name, able to answer most questions appropriately when awakened. Following all commands, however tires out easily. KCl supplementation is ongoing. Troponin series ordered today due to persistent ongoing A-fib, chest x-ray showing diffuse bilateral infiltrates, elevated BNP, also checked today at 24,000. Baseline troponin elevated at 344. Awaiting 2 and 6-hour trend. Medications: Reviewed: Yes Medication Review Details: Generic Name Dose Route Start Last Admin Trade Name Freq PRN Reason Stop Dose Admin Acetylcysteine 200 mg 11/06/22 20:00 11/08/22 07:59 Acetylcysteine 2 00 Mg/Ml Mdv 10 Ml INHALATION 200 mg Q4H.RESPIRATORY S CH Administration Albuterol/Ipratrop ium 3 ml 11/06/22 20:00 11/08/22 07:59 Ipratropium-Albu terol 3 Ml Neb INHALATION 3 ml QID.RESPIRATORY S CH Administration Apixaban 2.5 mg 11/06/22 20:00 11/08/22 08:40 Apixaban 5 Mg Ta blet PO 2.5 mg BID@0800,2000 SHIELA Administration Budesonide 0.5 mg 11/06/22 20:00 11/08/22 07:59 Budesonide 0.5 M g/2 Ml Neb INHALATION 0.5 mg BID.RESPIRATORY S CH Administration Diltiazem HCl 30 mg 11/07/22 14:15 11/08/22 10:09 Diltiazem 30 Mg Tablet PO Not Given Q6H SHIELA Furosemide 40 mg 11/08/22 09:00 11/08/22 08:09 Furosemide 10 Mg /Ml Sdv 4ml IVP 40 mg Q24H SHIELA Administration Guaifenesin 1,200 mg 11/07/22 09:00 11/08/22 10:10 Guaifenesin 600 Mg Tablet PO Not Given BID SHIELA Diltiazem HCl 100 mg/ Sodium 100 mls @ 0 mls/h r 11/06/22 18:45 11/08/22 05:14 Chloride IV Infused .Q0M SHIELA Titration Protocol Per Protocol Vancomycin HCl 1,0 00 mg/ 250 mls @ 250 mls /hr 11/06/22 19:00 11/07/22 20:05 Sodium Chloride IV Infused Q24H SHIELA Infusion Protocol Piperacillin Sod/T azobactam 50 mls @ 12.5 mls /hr 11/06/22 20:00 11/08/22 08:03 Sod 3.375 gm/ So dium Chloride IV Infused Q8H SHIELA Infusion Protocol Insulin Human Regu lar 250 unit 252.5 mls @ 0 mls /hr 11/07/22 06:30 11/08/22 05:14 / Sodium Chlorid e IV Infused .Q0M SHIELA Titration Protocol Per Protocol Insulin Glargine 30 unit 11/07/22 21:00 11/07/22 20:56 Insulin Glargine 100 Units/1 Ml SUBCUT 30 unit BEDTIME SHIELA Administration Insulin Human Lisp ro 0 unit 11/07/22 18:00 11/08/22 08:09 Insulin Lispro 1 00 Unit/1 Ml SUBCUT 6 unit WM&BEDTIME SHIELA Administration Protocol Lorazepam 1 mg 11/07/22 08:09 11/08/22 04:04 Lorazepam 2 Mg/M l Inj 1 Ml IVP 1 mg Q4H PRN Administration ANXIETY Methylprednisolone Sodium Succinate 60 mg 11/06/22 19:00 11/08/22 07:52 Methylprednisolo ne Sod Succ 125 Mg /2 Ml Inj IVP 60 mg Q6H SHIELA Administration Vitals/I&O/Wt Last Vital Signs Temp 98.0 F 11/09/22 04:00 Pulse 124 H 11/09/22 16:00 Resp 29 H 11/09/22 16:00 BP 135/65 11/09/22 16:00 Pulse Ox 90 11/09/22 16:00 O2 Del Method BiPAP 11/09/22 15:00 O2 Flow Rate 60 11/07/22 20:00 FiO2 35 11/09/22 16:00 11/09/22 11/09/22 11/09/22 06:59 14:59 22:59 Intake Total 150 / 1019 50 / 50 50 / 100 Output Total 600 / 3650 Balance -450 / -2631 50 / 50 50 / 100 Weight last 48 hrs Weight 66.814 kg Weight 66.814 kg Physical Exam Narrative: General: Currently on BiPAP, ill-appearing, tachycardic and tachypneic. HEENT: PERRLA, pupils bilaterally equal and reactive, pallors not present Chest: Bilateral coarse conducted breath sounds CVS: S1-S2 regular, no murmurs, no tachycardia, no gallops, no rubs Abdomen: Soft, nontender, no organomegaly, bowel sounds present Neuro: No focal deficits, no facial deformity, AO x3 Extremities: No edema clubbing or cyanosis at this time Urinary Catheter Management: Ortiz: Cath Placed During This Visit: yes Reason for Continuing Indwelling Catheter: Accurate Measurement of Urinary Output in Critically Ill Patients Urinary Catheter Date of Insertion: 11/07/22 Urinary Catheter Time of Insertion: 05:30 Data 11/09/22 03:30 11/09/22 03:30 Micro: Microbiology 11/08/22 18:44 MRSA Culture - Final Nose 11/08/22 18:44 Bacterial Antigens - Final Urine,Voided 11/08/22 18:44 Legionella Urinary Antigen - Final Urine Catheterized A&P Assessment and plan (1) Pneumonia: (2) COPD exacerbation: (3) Atrial fibrillation with RVR: (4) Chronic kidney disease (CKD), stage III (moderate): (5) Respiratory failure with hypoxia: (6) HTN (hypertension): Plan 77 year old male with PMH of ?COPD, atrial fibrillation, coronary artery disease, diabetes mellitus, hypertension, ischemic cardiomyopathy, HFrEF,moderate aortic stenosis admitted to the hospital on November 06, 2022 with chief complaints of worsening dyspnea. Found to have acute hypoxic respiratory failure for which patient is continuing to be on BiPAP over the last 3 days. 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 Attempts to wean off BiPAP have not been successful thus far. Chest x-ray is showing diffuse bilateral fluffy infiltrates Will obtain CT of the chest today without contrast to further delineate, evaluate for any developing complications such as an empyema given persistent leukocytosis and hypoxia. Less likely COPD exacerbation, start tapering down steroids to Solu-Medrol 60 mg IV daily from 60 mg every 6 hrs #Bilateral infiltrates, concerning for pneumonia vs ARDS vs CHF COVID PCR performed upon admission negative, rapid influenza negative. We will check a full respiratory viral panel to evaluate for underlying metapneumovirus, parainfluenza infection which could present similarly Currently patient is appropriately empirically covered with piperacillin/tazobactam and vancomycin. Add atypical coverage with levofloxacin MRSA nares is positive therefore we will continue vancomycin coverage. Negative urine Legionella and bacterial antigens. Sputum culture is not available, will obtain if patient expectorates Patient has recently been on high-dose steroids, per review of outpatient notes he has been on 20 mg p.o. 3 times daily at least over the last 2 weeks. We will additionally check serum beta glucan screen to assess for possible pneumocystis pneumonia, will additionally check pneumocystis PCR from induced sputum CT chest without contrast ordered today. Possibility of aspiration cannot be excluded, patient noted to be coughing with attempts at taking oral medications. Will obtain swallow eval. Continued attempts to wean down BiPAP requirements Blood cx NGTD thus far #Suspected heart failure given bilateral infiltrates, persistent A-fib We will restart Cardizem infusion. Unable to tolerate p.o. Cardizem currently. If continues to be in persistent A-fib we will switch to amiodarone infusion. Check BNP check EKG and troponin series Check echocardiogram currently on lasix 40mg iv every 24 h , net -3.7 L since admission Additional dose of Lasix 40 mg IV today #NSTEMI Baseline troponin elevated at 344, will trend at 2 and 6 hours. Start anticoagulation with Lovenox 1mg/kg q12h start ASA 81 mg po daily DKA:Resolved Patient was started on insulin drip now resolved on insulin sliding scale Persisting A fib Likely CKD stage III Admission serum creatinine is 1.3, down from 5.9 past admission Monitor BMP Avoid nephrotoxic's Monitor and output charting CODE STATUS: Full code DVT prophylaxis: Currently on full dose lovenox, changed from eliquis as unable to take po intake, witnessed aspiration Attestations Medical Necessity Statement*: iv diuresis, iv amiodarone infusion, bipap respiratory support Critical Care Time: The high probability of a clinically significant, sudden or life threatening deterioration of the patient's [respiratory,cardiac] system(s) required my full and direct attention, intervention and personal management. The critical care time is as shown. This time is in addition to time spent performing any reported procedures but includes the following: [x] Data and vital sign review and interpretation [x] Patient assessment, examination and intervention [x] Documentation [x] Medication orders and management Critical Care Time (min): 75 Coding Level of Care Code Critical Care >/= 30 minutes Diagnoses Pneumonia J18.9 COPD exacerbation J44.1 Atrial fibrillation with RVR I48.91 Chronic kidney disease (CKD), stage III (moderate) N18.30 Respiratory failure with hypoxia J96.91 HTN (hypertension) I10
[2022-11-09 19:00] LABS: Troponin 5 2HR Delta -21.7 ABS# (0-10)
[2022-11-09 19:17] LABS: Troponin 5 2HR 322.3 ng/L (0-15)
--- NOTE | 2022-11-09 19:17 | CTR_ITS ---
PROCEDURE INFORMATION: Exam: CT Head Without Contrast Exam date and time: 11/09/2022 9:48 PM Age: 77 years old Clinical indication: Altered mental status/memory loss; Confusion or disorientation; Patient HX: Lethargy with confusion. Patient non verbal upon exam. ; Additional info: Confusion, AMS TECHNIQUE: Imaging protocol: Computed tomography of the head without contrast. Radiation optimization: All CT scans at this facility use at least one of these dose optimization techniques: automated exposure control; mA and/or kV adjustment per patient size (includes targeted exams where dose is matched to clinical indication); or iterative reconstruction. REPORTING DATA: Count of CT and Cardiac NM exams in prior 12 months: This patient has received 6 known CTs and 0 known cardiac nuclear medicine studies in the 12 months prior to the current study. COMPARISON: CT head wo con* [id number] 08/16/2022 4:04 PM RADIATION DOSE METRICS: Total DLP (mGy-cm): 1234.39 FINDINGS: Brain: No hemorrhage. No edema. Advanced diffuse cerebral atrophy and sequela of chronic small vessel ischemic disease. No mass effect. Cerebral ventricles: No ventriculomegaly. Paranasal sinuses: Visualized sinuses are unremarkable. No fluid levels. Mastoid air cells: Visualized mastoid air cells are well aerated. Bones/joints: Unremarkable. No acute fracture. Soft tissues: Unremarkable. CT/CT head wo con* [id number] IMPRESSION: 1. No acute intracranial abnormality. 2. Advanced diffuse cerebral atrophy and sequela of chronic small vessel ischemic disease.
[2022-11-09] MEDS: vancomycin 1,000 MG in sodium chloride 0.9% 250 ML 250 MG IV (19:48)
[2022-11-09] MEDS: levofloxacin-dextrose 5 % 500 MG/100 ML PREMIX 100 MG IV (19:49)
[2022-11-09 21:12] LABS: Glucose Point of Care 269 mg/dL (70-110)
[2022-11-09 21:28] LABS: Vancomycin Trough 12.9 ug/mL (10-15)
[2022-11-09] MEDS: insulin glargine 100 units/1 mL 30 UNIT SUBCUT (22:14)
[2022-11-09 22:39] LABS: Adenovirus Not Detected (NOT DETECT); Chlamydia Pneumoniae Not Detected (NOT DETECT); Coronavirus 229E,HKU1,NL63,OC4 Not Detected (NOT DETECT); Human Metapneumovirus Not Detected (NOT DETECT); Human Rhinovirus/Enterovirus Not Detected (NOT DETECT); Influenza A Not Detected (NOT DETECT); Influenza A H1 Not Detected (NOT DETECT); Influenza A H1-2009 Not Detected (NOT DETECT); Influenza A H3 Not Detected (NOT DETECT); Influenza B Not Detected (NOT DETECT); Mycoplasma Pneumoniae Not Detected (NOT DETECT); Parainfluenza Virus Type 1 Not Detected (NOT DETECT); Parainfluenza Virus Type 2 Not Detected (NOT DETECT); Parainfluenza Virus Type 3 Not Detected (NOT DETECT); Parainfluenza Virus Type 4 Not Detected (NOT DETECT); Respiratory Syncytial Virus A Not Detected (NOT DETECT); Respiratory Syncytial Virus B Not Detected (NOT DETECT); SARS-COV-2 Not Detected (NOT DETECT)
[2022-11-09 23:49] LABS: Magnesium 2.3 mg/dL (1.7-2.3)
[2022-11-10] VITALS (62 sets, daily range): BP systolic 110–150; BP diastolic 51–102; PULSE 88–114; RESP 16–33; TEMP 36.1–36.6; O2SAT 76–100
[2022-11-10] MEDS: enoxaparin 60 mg/0.6 mL Syringe SUBCUT ×2 (03:37→16:31)
[2022-11-10] MEDS: piperacillin-tazobactam 3.375 GM in sodium chloride 0.9% (plus) 50 ML IV ×3 (03:37→20:43)
[2022-11-10 04:03] LABS: Hematocrit 29.1 % (42.0-52.0); Hemoglobin 8.7 g/dL (11.7-16.6); Lymphocytes # 0.2 10^3/uL (0.8-4.8); Lymphocytes % 2.2 %; Mean Corpuscular HGB Conc 29.9 g/dL (30.0-36.0); Mean Corpuscular Hemoglobin 27.8 pg (28.0-34.0); Mean Platelet Volume 11.5 fL (7.4-10.4); Monocytes # 0.8 10^3/uL (0.2-0.9); Monocytes % 9.3 %; Neutrophils # 7.42 10^3/uL (1.8-7.7); Neutrophils % 85.5 %; Nucleated Red Blood Cells % 0 %; Platelet Count 192 10^3/cmm (130-400); Red Blood Count 3.13 10^6/uL (4.1-5.3); Red Cell Distribution Width 16.5 % (12.1-15.1); White Blood Count 8.7 10^3/uL (4.0-10.0)
[2022-11-10 04:29] LABS: Alanine Aminotransferase 20 U/L (0-41); Albumin Level 3.9 g/dL (3.5-5.2); Alkaline Phosphatase 104 U/L (40-130); Anion Gap 17.5 (5-19); Aspartate Amino Transferase 34 U/L (0-40); Blood Urea Nitrogen 44 mg/dL (8-23); Carbon Dioxide 29 mmol/L (22-29); Chloride 112 mmol/L (98-107); Globulin 3.1 g/dL (1.3-4.6); Glucose 80 mg/dL (65-115); Magnesium 2.3 mg/dL (1.7-2.3); Osmolality Calculated 332 mOsm/kg (285-295); Sodium 156 mmol/L (136-145); Total Bilirubin 0.7 mg/dL (0.15-1.2)
[2022-11-10 04:35] LABS: Creatinine Clr Calc Pharmacy 38.1103; Potassium 2.5 mmol/L (3.5-5.1)
[2022-11-10] MEDS: lidocaine 1% 5 ML in potassium chloride premix 100 ML 26.25 ML IV ×3 (04:52→14:02)
[2022-11-10 07:10] LABS: Glucose Point of Care 56 mg/dL (70-110)
--- NOTE | 2022-11-10 07:39 | PC.NURSE ---
Blood glucose 56, patient AO to self, follows commands, juice given
[2022-11-10 08:10] LABS: Glucose Point of Care 112 mg/dL (70-110)
[2022-11-10] MEDS: aspirin 81 mg EC Tablet PO (08:25)
[2022-11-10] MEDS: guaiFENesin 600 mg Tablet 1200 MG PO (08:25)
[2022-11-10] MEDS: budesonide 0.5 mg/2 mL Neb INHALATION ×2 (08:44→20:16)
[2022-11-10] MEDS: ipratropium-albuterol 3 mL Neb INHALATION ×4 (08:44→20:16)
--- NOTE | 2022-11-10 08:54 | PC.NURSE ---
Dr. Roche at bedside, gave order to hold ordered lasix due to low K and no crackles noted, additional dose of 40 meq k ordered
--- NOTE | 2022-11-10 08:57 | P.PN_ITS ---
Subjective Subjective: Oxygen requirements improving today to 3 L via high flow nasal cannula today. He continues to be somnolent and lethargic during the daytime. However his breathing appears to be improving today. Developing hypernatremia. Medications: Reviewed: Yes Medication Review Details: Generic Name Dose Route Start Last Admin Trade Name Freq PRN Reason Stop Dose Admin Acetylcysteine 200 mg 11/06/22 20:00 11/08/22 07:59 Acetylcysteine 2 00 Mg/Ml Mdv 10 Ml INHALATION 200 mg Q4H.RESPIRATORY S CH Administration Albuterol/Ipratrop ium 3 ml 11/06/22 20:00 11/08/22 07:59 Ipratropium-Albu terol 3 Ml Neb INHALATION 3 ml QID.RESPIRATORY S CH Administration Apixaban 2.5 mg 11/06/22 20:00 11/08/22 08:40 Apixaban 5 Mg Ta blet PO 2.5 mg BID@0800,2000 SHILEA Administration Budesonide 0.5 mg 11/06/22 20:00 11/08/22 07:59 Budesonide 0.5 M g/2 Ml Neb INHALATION 0.5 mg BID.RESPIRATORY S CH Administration Diltiazem HCl 30 mg 11/07/22 14:15 11/08/22 10:09 Diltiazem 30 Mg Tablet PO Not Given Q6H SHIELA Furosemide 40 mg 11/08/22 09:00 11/08/22 08:09 Furosemide 10 Mg /Ml Sdv 4ml IVP 40 mg Q24H SHIELA Administration Guaifenesin 1,200 mg 11/07/22 09:00 11/08/22 10:10 Guaifenesin 600 Mg Tablet PO Not Given BID SHIELA Diltiazem HCl 100 mg/ Sodium 100 mls @ 0 mls/h r 11/06/22 18:45 11/08/22 05:14 Chloride IV Infused .Q0M SHIELA Titration Protocol Per Protocol Vancomycin HCl 1,0 00 mg/ 250 mls @ 250 mls /hr 11/06/22 19:00 11/07/22 20:05 Sodium Chloride IV Infused Q24H SHIELA Infusion Protocol Piperacillin Sod/T azobactam 50 mls @ 12.5 mls /hr 11/06/22 20:00 11/08/22 08:03 Sod 3.375 gm/ So dium Chloride IV Infused Q8H SHIELA Infusion Protocol Insulin Human Regu lar 250 unit 252.5 mls @ 0 mls /hr 11/07/22 06:30 11/08/22 05:14 / Sodium Chlorid e IV Infused .Q0M SHIELA Titration Protocol Per Protocol Insulin Glargine 30 unit 11/07/22 21:00 11/07/22 20:56 Insulin Glargine 100 Units/1 Ml SUBCUT 30 unit BEDTIME SHIELA Administration Insulin Human Lisp ro 0 unit 11/07/22 18:00 11/08/22 08:09 Insulin Lispro 1 00 Unit/1 Ml SUBCUT 6 unit WM&BEDTIME SHIELA Administration Protocol Lorazepam 1 mg 11/07/22 08:09 11/08/22 04:04 Lorazepam 2 Mg/M l Inj 1 Ml IVP 1 mg Q4H PRN Administration ANXIETY Methylprednisolone Sodium Succinate 60 mg 11/06/22 19:00 11/08/22 07:52 Methylprednisolo ne Sod Succ 125 Mg /2 Ml Inj IVP 60 mg Q6H SHIELA Administration Vitals/I&O/Wt Last Vital Signs Temp 97.6 F 11/10/22 08:00 Pulse 90 11/10/22 08:45 Resp 22 H 11/10/22 08:45 BP 133/67 11/10/22 08:00 Pulse Ox 97 11/10/22 08:45 O2 Del Method High Flow Nasal Cannula 11/10/22 08:45 O2 Flow Rate 3 11/10/22 08:45 FiO2 35 11/09/22 16:00 11/09/22 11/10/22 11/10/22 22:59 06:59 14:59 Intake Total 400 / 450 300.918 / 750.918 99.312 / 99.312 Output Total 950 / 950 350 / 1300 Balance -550 / -500 -49.082 / -549.082 99.312 / 99.312 Weight last 48 hrs Weight 55.973 kg Weight 66.814 kg Physical Exam Narrative: General: Ill-appearing male, AO x2-3 HEENT: PERRLA, pupils bilaterally equal and reactive, pallors not present Chest: Normal vesicular breath sounds, no added sounds, equal good air entry bilaterally CVS: S1-S2 regular, no murmurs, no tachycardia, no gallops, no rubs Abdomen: Soft, nontender, no organomegaly, bowel sounds present Neuro: No focal deficits, moves all extremities no facial deformity, AO x2-3, lethargic Urinary Catheter Management: Ortiz: Cath Placed During This Visit: yes Reason for Continuing Indwelling Catheter: Accurate Measurement of Urinary Output in Critically Ill Patients Urinary Catheter Date of Insertion: 11/07/22 Urinary Catheter Time of Insertion: 05:30 Data 11/11/22 11:00 11/11/22 09:26 Micro: Microbiology 11/08/22 18:44 MRSA Culture - Final Nose 11/08/22 18:44 Bacterial Antigens - Final Urine,Voided A&P Assessment and plan (1) Pneumonia: (2) COPD exacerbation: (3) Atrial fibrillation with RVR: (4) Chronic kidney disease (CKD), stage III (moderate): (5) Respiratory failure with hypoxia: (6) HTN (hypertension): Plan 77 year old male with PMH of ?COPD, atrial fibrillation, coronary artery disease , diabetes mellitus, hypertension, ischemic cardiomyopathy, HFrEF,moderate aortic stenosis admitted to the hospital on November 06, 2022 with chief complaints of worsening dyspnea. Found to have acute hypoxic respiratory failure for which patient was on BiPAP for 3 days on admission. Also had A-fib with RVR. Assessment: # Acute on chronic respiratory failure with hypoxia Patient has been on BiPAP between November 06, 2022-November 09, 2022 CT of the chest was performed given persistent leukocytosis and poor respiratory status, shows bilateral infiltrates most consistent with pneumonia. May be an atypical versus aspiration process. May have had a component of pulmonary edema from his A-fib with RVR however based on the CT primary problem appears to be his pneumonic infiltrates. Additional note made of empyema on the CT chest, however no big drainable collection is seen. Per my personal review of the CT, I do not see any big loculated collections. He has an area of mild pleural thickening for which we will continue antibiotics and likely monitor with serial imaging down the line. Less likely COPD exacerbation, continue to taper down steroids to 60 mg every 24 hours. #Bilateral infiltrates, concerning for pneumonia vs CHF Negative respiratory viral panel Currently patient is appropriately empirically covered with piperacillin/tazobac logan and vancomycin, atypical coverage with levofloxacin added on November 10, 2022. MRSA nares positive. Negative urine Legionella and bacterial antigens. Sputum culture currently pending Patient has recently been on high-dose steroids, per review of outpatient notes he has been on 20 mg p.o. 3 times daily at least over the last 2 weeks. Also has been leukopenic since August 2022. 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 Appreciate swallow evaluation, patient needs a dysphagia level 4 diet with extremely thick pur?ed liquids. Maintaining saturation off BiPAP on 3 L/min supplemental O2 via high flow nasal cannula Blood cx NGTD thus far #Suspected heart failure given bilateral infiltrates, persistent A-fib Currently on amiodarone infusion. Heart rate is much better controlled now. BNP elevated at 24,000 Echocardiogram with LVEF of 35 to 40%. RV is moderately hypokinetic. Compared to echocardiogram from 05/2022 LV systolic function has worsened. Suspect patient to have had acute systolic heart failure. Lasix on hold.. Patient appears to be dehydrated after receiving Lasix yesterday. Additionally has developed hypernatremia for which we will start D5 infusion. #NSTEMI Baseline troponin elevated at 344, negative delta at 2 and 6 hours Together with low ejection fraction highly suspicious that patient had an NSTEMI. We will continue medical management for now is given patient's poor respiratory status he is unable to be likely to lay flat to obtain an angiogram. We will obtain cardiology assessment once optimized from a respiratory standpoint. Continue anticoagulation with Lovenox 1mg/kg q12h Continue ASA 81 mg po daily #Hypernatremia Patient appears to be clinically dehydrated today. We will hold off on any further doses of Lasix. Start D5 infusion at 50 mL/h. Check sodium with a.m. labs. DKA:Resolved Patient was started on insulin drip now resolved on insulin sliding scale Persisting A fib : Heart rate today better controlled in the 90s. Continue amiodarone infusion. Likely CKD stage III Admission serum creatinine is 1.3, down from 5.9 past admission Monitor BMP Avoid nephrotoxic's Monitor and output charting CODE STATUS: Full code DVT prophylaxis: Currently on full dose lovenox for NSTEMI Attestations Medical Necessity Statement*: Continued ICU level care for hypernatremia, start D5, close monitoring of respiratory status, NSTEMI Coding Level of Care Code Critical Care >/= 30 minutes Diagnoses Pneumonia J18.9 COPD exacerbation J44.1 Atrial fibrillation with RVR I48.91 Chronic kidney disease (CKD), stage III (moderate) N18.30 Respiratory failure with hypoxia J96.91 HTN (hypertension) I10
[2022-11-10] MEDS: dextrose 5% 1,000 ML 50 ML IV (10:30)
--- NOTE | 2022-11-10 10:43 | PC.PHAR ---
PHARMACY RENAL REPORT ADJUSTMENT Due to patient's continued low CrCl < 50 mL/min, the indicated dosage of Levaquin IV is 500mg on Day 1, then 250mg every 24 hours. Patient received a dose of 500mg on 11/09/22 @ 1999. New order placed for the 250mg to be administered starting 11/10/221999 every 24 hours. Please let the pharmacy know if there are any questions/concerns. We will continue to monitor this patient's renal function and make adjustments as necessary. Thanks, Kasi Marie, Pharm.D
[2022-11-10 11:16] LABS: Glucose Point of Care 174 mg/dL (70-110)
[2022-11-10] MEDS: insulin lispro 100 unit/1 mL SUBCUT ×3 (12:07→20:39)
--- NOTE | 2022-11-10 15:19 | USCV_ITS ---
Maria Fernanda Anuj Age: 77 Gender: M : 1945 Exam Date: 11/10/2022 04:21 Ordering Phys: Belinda Roche MD Technologist: SHONDA Exam Location: [facility] [place] Indication: estimate EF, RWMA, SOB, patient unresponsive in ICU-8, MRSA isolation. BP: 135 / 65 HR: 90 Rhythm: Sinus with occasional strings of atrial fibrillation Technical Quality: Adequate MEASUREMENTS (Male / Female) Normal Values 2D ECHO LV Diastolic Diameter PLAX 4.7 cm 4.2 - 5.9 / 3.9 - 5.3 cm LV Systolic Diameter PLAX 4.4 cm IVS Diastolic Thickness 1.2 cm 0.6 - 1.0 / 0.6 - 0.9 cm IVS Systolic Thickness 1.7 cm LVPW Diastolic Thickness 0.9 cm 0.6 - 1.0 / 0.6 - 0.9 cm LVPW Systolic Thickness 0.9 cm LVOT Diameter 1.8 cm LV Ejection Fraction 2D Teich 11.2 % LV Ejection Fraction MOD 2C 40.9 % LV Ejection Fraction 2C AL 42.0 % LA Diameter 3.7 cm LA Width 4.4 cm LA Height 4.8 cm RA Width 4.4 cm RA Height 5.1 cm Aorta at Sinotubular Diameter 2.8 cm IVC Diameter 1.5 cm M-MODE Aortic Annulus Diameter 3.2 cm LA Ao Ratio MM 1.1 MV E Point Septal Separation 1.4 cm DOPPLER AV Peak Velocity 233.0 cm/s LVOT Peak Velocity 87.0 cm/s AV Area Cont Eq vti 0.9 cm squared AV Area Cont Eq pk 0.9 cm squared MV Peak Velocity 156.0 cm/s MV Area PHT 2.3 cm squared Mitral E to A Ratio 1.2 MV E' Velocity 67.0 cm/s Mitral E to MV E' Ratio 38.4 Mitral E to LV E' Lateral Ratio 46.7 Mitral E to LV E' Septal Ratio 33.5 TR Peak Velocity 277.0 cm/s TR Peak Gradient 30.7 mmHg TV Peak E Velocity 26.0 cm/s Right Atrial Pressure 5.0 mmHg Pulmonary Artery Systolic Pressu 35.7 mmHg PV Peak Velocity 123.0 cm/s RV Acceleration Time 0.1 s RV Ejection Time 0.3 s RV AcT/ET 0.3 FINDINGS Left Ventricle Left ventricle is normal in size. LV systolic function is moderately reduced with EF of 35 to 40%. Moderate global hypokinesis seen. Right Ventricle RV is moderately hypokinetic Right Atrium Normal in size Left Atrium Normal in size Mitral Valve Moderate mitral annular calcification. Possibly prosthetic mitral valve. Mild mitral regurgitation Aortic Valve Aortic valve is thickened.mild to moderate aortic stenosis with aortic valve area of 1 cm2 and mean gradient across aortic valve of 8.5mmHg Tricuspid Valve Mild tricuspid regurgitation. Insufficient TR jet to calculate RVSP Pulmonic Valve Not well-visualized. Trace pulmonic regurgitation. Pericardium Normal Aorta Normal in size IVC Not well visualized CONCLUSIONS LV systolic function is moderately reduced with EF of 35 to 40%. RV is moderately hypokinetic Possibly prosthetic mitral valve seen. Mild mitral regurgitation Mild to moderate aortic stenosis Mild tricuspid regurgitation Trace pulmonic regurgitation Compared to prior echocardiogram from 06/21/2022, LV systolic function is slightly reduced. Tito Hernandez MD (Electronically Signed) Final Date: 10 November 2022 15:30 S
[2022-11-10 17:26] LABS: Glucose Point of Care 274 mg/dL (70-110)
[2022-11-10] MEDS: vancomycin 1,000 MG in sodium chloride 0.9% 250 ML 250 MG IV (18:05)
[2022-11-10] MEDS: LORazepam 2 mg/mL INJ 1 mL 1 MG IVP (19:53)
[2022-11-10 20:26] LABS: Glucose Point of Care 375 mg/dL (70-110)
[2022-11-11] VITALS (34 sets, daily range): BP systolic 118–149; BP diastolic 49–79; PULSE 75–104; RESP 16–42; TEMP 36.9; O2SAT 86–99; BMI 19.3
[2022-11-11] MEDS: LORazepam 2 mg/mL INJ 1 mL 1 MG IVP (00:20)
[2022-11-11] MEDS: enoxaparin 60 mg/0.6 mL Syringe SUBCUT ×2 (03:42→17:08)
[2022-11-11] MEDS: piperacillin-tazobactam 3.375 GM in sodium chloride 0.9% (plus) 50 ML IV ×3 (03:42→20:50)
[2022-11-11] MEDS: dextrose 5% 1,000 ML 50 ML IV (06:12)
[2022-11-11 07:06] LABS: Glucose Point of Care 290 mg/dL (70-110)
[2022-11-11] MEDS: budesonide 0.5 mg/2 mL Neb INHALATION ×2 (08:19→19:54)
[2022-11-11] MEDS: ipratropium-albuterol 3 mL Neb INHALATION ×4 (08:19→19:54)
[2022-11-11] MEDS: insulin lispro 100 unit/1 mL SUBCUT ×4 (08:29→20:47)
[2022-11-11] MEDS: guaiFENesin 600 mg Tablet 1200 MG PO (08:30)
[2022-11-11] MEDS: aspirin 81 mg EC Tablet PO (08:30)
[2022-11-11 09:54] LABS: Alanine Aminotransferase 17 U/L (0-41); Albumin Level 3.6 g/dL (3.5-5.2); Alkaline Phosphatase 101 U/L (40-130); Aspartate Amino Transferase 28 U/L (0-40); Blood Urea Nitrogen 38 mg/dL (8-23); Carbon Dioxide 24 mmol/L (22-29); Chloride 109 mmol/L (98-107); Globulin 2.2 g/dL (1.3-4.6); Glucose 284 mg/dL (65-115); Osmolality Calculated 321 mOsm/kg (285-295); Sodium 146 mmol/L (136-145); Total Bilirubin 0.7 mg/dL (0.15-1.2); Total Protein 5.8 g/dL (6.6-8.7)
[2022-11-11 09:59] LABS: Anion Gap 17.3 (5-19); Potassium 4.3 mmol/L (3.5-5.1)
[2022-11-11 11:07] LABS: Glucose Point of Care 293 mg/dL (70-110)
[2022-11-11 11:14] LABS: Basophils % 0.1 %; Hematocrit 29.4 % (42.0-52.0); Hemoglobin 8.3 g/dL (11.7-16.6); Lymphocytes # 0.3 10^3/uL (0.8-4.8); Lymphocytes % 2.9 %; Mean Corpuscular HGB Conc 28.2 g/dL (30.0-36.0); Mean Corpuscular Hemoglobin 27.7 pg (28.0-34.0); Mean Platelet Volume 11.7 fL (7.4-10.4); Monocytes # 1.1 10^3/uL (0.2-0.9); Monocytes % 9.6 %; Neutrophils % 82.6 %; Nucleated Red Blood Cells % 0 %; Platelet Count 155 10^3/cmm (130-400); Red Cell Distribution Width 16.2 % (12.1-15.1); White Blood Count 11.5 10^3/uL (4.0-10.0)
[2022-11-11 16:08] LABS: Glucose Point of Care 220 mg/dL (70-110)
--- NOTE | 2022-11-11 16:13 | PM.PN ---
Subjective Subjective: Patient appears to be more awake and alert today. Less lethargic when seen earlier this morning at 9 AM. Sodium is improving at 146. He remains on 3 L/min supplemental O2 via high flow nasal cannula. Denies any specific complaints. Heart rate is currently controlled between 90 to 100 bpm on amiodarone infusion. Medications: Reviewed: Yes Medication Review Details: Generic Name Dose Route Start Last Admin Trade Name Freq PRN Reason Stop Dose Admin Acetylcysteine 200 mg 11/06/22 20:00 11/08/22 07:59 Acetylcysteine 2 00 Mg/Ml Mdv 10 Ml INHALATION 200 mg Q4H.RESPIRATORY S CH Administration Albuterol/Ipratrop ium 3 ml 11/06/22 20:00 11/08/22 07:59 Ipratropium-Albu terol 3 Ml Neb INHALATION 3 ml QID.RESPIRATORY S CH Administration Apixaban 2.5 mg 11/06/22 20:00 11/08/22 08:40 Apixaban 5 Mg Ta blet PO 2.5 mg BID@0800,1999 SHIELA Administration Budesonide 0.5 mg 11/06/22 20:00 11/08/22 07:59 Budesonide 0.5 M g/2 Ml Neb INHALATION 0.5 mg BID.RESPIRATORY S CH Administration Diltiazem HCl 30 mg 11/07/22 14:15 11/08/22 10:09 Diltiazem 30 Mg Tablet PO Not Given Q6H SHIELA Furosemide 40 mg 11/08/22 09:00 11/08/22 08:09 Furosemide 10 Mg /Ml Sdv 4ml IVP 40 mg Q24H SHIELA Administration Guaifenesin 1,200 mg 11/07/22 09:00 11/08/22 10:10 Guaifenesin 600 Mg Tablet PO Not Given BID SHIELA Diltiazem HCl 100 mg/ Sodium 100 mls @ 0 mls/h r 11/06/22 18:45 11/08/22 05:14 Chloride IV Infused .Q0M SHIELA Titration Protocol Per Protocol Vancomycin HCl 1,0 00 mg/ 250 mls @ 250 mls /hr 11/06/22 19:00 11/07/22 20:05 Sodium Chloride IV Infused Q24H SHIELA Infusion Protocol Piperacillin Sod/T azobactam 50 mls @ 12.5 mls /hr 11/06/22 20:00 11/08/22 08:03 Sod 3.375 gm/ So dium Chloride IV Infused Q8H SHIELA Infusion Protocol Insulin Human Regu lar 250 unit 252.5 mls @ 0 mls /hr 11/07/22 06:30 11/08/22 05:14 / Sodium Chlorid e IV Infused .Q0M SHIELA Titration Protocol Per Protocol Insulin Glargine 30 unit 11/07/22 21:00 11/07/22 20:56 Insulin Glargine 100 Units/1 Ml SUBCUT 30 unit BEDTIME SHIELA Administration Insulin Human Lisp ro 0 unit 11/07/22 18:00 11/08/22 08:09 Insulin Lispro 1 00 Unit/1 Ml SUBCUT 6 unit WM&BEDTIME SHIELA Administration Protocol Lorazepam 1 mg 11/07/22 08:09 11/08/22 04:04 Lorazepam 2 Mg/M l Inj 1 Ml IVP 1 mg Q4H PRN Administration ANXIETY Methylprednisolone Sodium Succinate 60 mg 11/06/22 19:00 11/08/22 07:52 Methylprednisolo ne Sod Succ 125 Mg /2 Ml Inj IVP 60 mg Q6H SHIELA Administration Vitals/I&O/Wt Last Vital Signs Temp 98.5 F 11/11/22 03:00 Pulse 86 11/11/22 15:22 Resp 16 11/11/22 15:20 BP 124/66 11/11/22 12:00 Pulse Ox 98 11/11/22 15:20 O2 Del Method BiPAP 11/11/22 15:20 O2 Flow Rate 3 11/11/22 11:10 FiO2 30 11/11/22 15:20 11/11/22 11/11/22 11/11/22 06:59 14:59 22:59 Intake Total 1515 / 3571.394 50 / 50 Output Total 550 / 1925 Balance 965 / 1646.394 50 / 50 Weight last 48 hrs Weight 55.973 kg Weight 55.973 kg Physical Exam Narrative: General: Elderly, frail, AO x2-3 HEENT: PERRLA, pupils bilaterally equal and reactive, pallors not present Chest: Normal vesicular breath sounds, no added sounds, equal good air entry bilaterally CVS: S1-S2 regular, no murmurs, no tachycardia, no gallops, no rubs Abdomen: Soft, nontender, no organomegaly, bowel sounds present Neuro: No focal deficits, appears to be more alert compared to yesterday. Urinary Catheter Management: Rotiz: Cath Placed During This Visit: yes Reason for Continuing Indwelling Catheter: Accurate Measurement of Urinary Output in Critically Ill Patients Urinary Catheter Date of Insertion: 11/07/22 Urinary Catheter Time of Insertion: 05:30 Data 11/11/22 11:00 11/11/22 09:26 Micro: Microbiology 11/10/22 09:50 Gram Stain - Final Sputum - Expectorated Sputum Sputum Culture - Preliminary A&P Assessment and plan (1) Pneumonia: (2) COPD exacerbation: (3) Atrial fibrillation with RVR: (4) Chronic kidney disease (CKD), stage III (moderate): (5) Respiratory failure with hypoxia: (6) HTN (hypertension): Plan 77 year old male with PMH of ?COPD, atrial fibrillation, coronary artery disease, diabetes mellitus, hypertension, ischemic cardiomyopathy, HFrEF,moderate aortic stenosis admitted to the hospital on November 06, 2022 with chief complaints of worsening dyspnea. Found to have acute hypoxic respiratory failure for which patient was on BiPAP for 3 days on admission. Also had A-fib with RVR. Assessment: # Acute on chronic respiratory failure with hypoxia Patient has been on BiPAP between November 06, 2022-November 09, 2022 CT of the chest was performed given persistent leukocytosis and poor respiratory status, shows bilateral infiltrates most consistent with pneumonia. May be an atypical versus aspiration process. May have had a component of pulmonary edema from his A-fib with RVR however based on the CT primary problem appears to be his pneumonic infiltrates. Additional note made of empyema on the CT chest, however no big drainable collection is seen. Per my personal review of the CT, I do not see any big loculated collections. He has an area of mild pleural thickening for which we will continue antibiotics and likely monitor with serial imaging down the line. Less likely COPD exacerbation, continue to taper down steroids to 30 mg every 24 hours. Cannot acutely stop the steroids given that he has been on it at least over the past 3 to 4 weeks. May precipitate adrenal crisis if taken off too quickly. #Bilateral infiltrates, concerning for pneumonia vs CHF Negative respiratory viral panel Currently patient is appropriately empirically covered with piperacillin/tazobactam and vancomycin, atypical coverage with levofloxacin added on November 10, 2022. MRSA nares positive. Negative urine Legionella and bacterial antigens. Sputum culture reviewed, currently Gram stain appears suggestive of normal respiratory melba Patient has recently been on high-dose steroids, per review of outpatient notes he has been on 20 mg p.o. 3 times daily at least over the last 2 weeks. Also has been leukopenic since August 2022. Both of the latter are risk factors for development of pneumocystis pneumonia Pending serum beta glucan screen to assess for possible pneumocystis pneumonia, pending pneumocystis PCR from induced sputum CT chest without contrast showing bilateral infiltrates diffusely, more prominent in the lower lobes, which are representative personal service of pneumonia, possibility of aspiration pneumonia not excluded. Appreciate swallow evaluation, patient needs a dysphagia level 4 diet with extremely thick pur?ed liquids. Maintaining saturation off BiPAP on 3 L/min supplemental O2 via high flow nasal cannula Blood cx NGTD thus far #Suspected heart failure given bilateral infiltrates, persistent A-fib Currently on amiodarone infusion. Heart rate is much better controlled now. BNP elevated at 24,000 Echocardiogram with LVEF of 35 to 40%. RV is moderately hypokinetic. Compared to echocardiogram from 05/2022 LV systolic function has worsened. Suspect patient to have had acute systolic heart failure. Lasix on hold.. Currently clinically euvolemic #NSTEMI Baseline troponin elevated at 344, negative delta at 2 and 6 hours Together with low ejection fraction highly suspicious that patient had an NSTEMI. We will continue medical management for now is given patient's poor respiratory status he is unable to be likely to lay flat to obtain an angiogram. We will obtain cardiology assessment once optimized from a respiratory standpoint. Continue anticoagulation with Lovenox 1mg/kg q12h Continue ASA 81 mg po daily #Hypernatremia Sodium improved from 1 56-1 46 with D5 yesterday. Given improvement of 10 mEq, will hold further D5 infusion today. Recheck sodium with a.m. labs DKA:Resolved Lantus currently on hold as patient was developing hypoglycemia Currently on sliding scale insulin Persisting A fib : Heart rate today better controlled in the 90s. Continue amiodarone infusion until able to consistently swallow, will plan to transition to p.o. amiodarone at that time.. Likely CKD stage III Admission serum creatinine is 1.3, down from 5.9 past admission Monitor BMP Avoid nephrotoxic's Monitor and output charting CODE STATUS: Full code DVT prophylaxis: Currently on full dose lovenox for NSTEMI PUD prophylaxis: Protonix PT OT assessment requested. Patient appears to be severely deconditioned. Will obtain therapy assessments Attestations Medical Necessity Statement*: Continue close monitoring of sodium levels, respiratory status, amiodarone infusion Coding Level of Care Code Critical Care >/= 30 minutes Diagnoses Pneumonia J18.9 COPD exacerbation J44.1 Atrial fibrillation with RVR I48.91 Chronic kidney disease (CKD), stage III (moderate) N18.30 Respiratory failure with hypoxia J96.91 HTN (hypertension) I10
[2022-11-11 16:26] LABS: Glucose Point of Care 226 mg/dL (70-110)
[2022-11-11] MEDS: atorvastatin 40 mg Tablet 80 MG PO (17:08)
[2022-11-11 18:34] LABS: Vancomycin Trough 14.1 ug/mL (10-15)
[2022-11-11] MEDS: vancomycin 1,000 MG in sodium chloride 0.9% 250 ML 250 MG IV (19:33)
[2022-11-11 20:45] LABS: Glucose Point of Care 275 mg/dL (70-110)
[2022-11-12] VITALS (28 sets, daily range): BP systolic 117–144; BP diastolic 52–72; PULSE 69–98; RESP 10–37; TEMP 36.4–36.7; O2SAT 90–100
[2022-11-12] MEDS: acetaminophen 325 mg Tablet 650 MG PO (02:27)
[2022-11-12] MEDS: piperacillin-tazobactam 3.375 GM in sodium chloride 0.9% (plus) 50 ML IV ×3 (03:41→21:07)
[2022-11-12] MEDS: enoxaparin 60 mg/0.6 mL Syringe SUBCUT ×2 (03:44→17:43)
[2022-11-12 05:33] LABS: Hematocrit 28.4 % (42.0-52.0); Hemoglobin 8.5 g/dL (11.7-16.6); Lymphocytes # 0.4 10^3/uL (0.8-4.8); Lymphocytes % 3.7 %; Mean Corpuscular HGB Conc 29.9 g/dL (30.0-36.0); Mean Corpuscular Hemoglobin 28.1 pg (28.0-34.0); Mean Platelet Volume 11.6 fL (7.4-10.4); Monocytes # 0.7 10^3/uL (0.2-0.9); Monocytes % 6.4 %; Neutrophils # 9.11 10^3/uL (1.8-7.7); Neutrophils % 87.4 %; Nucleated Red Blood Cells % 0 %; Platelet Count 158 10^3/cmm (130-400); Red Blood Count 3.02 10^6/uL (4.1-5.3); Red Cell Distribution Width 15.9 % (12.1-15.1); White Blood Count 10.4 10^3/uL (4.0-10.0)
[2022-11-12 05:36] LABS: Alanine Aminotransferase 18 U/L (0-41); Albumin Level 3.4 g/dL (3.5-5.2); Alkaline Phosphatase 95 U/L (40-130); Anion Gap 16.2 (5-19); Aspartate Amino Transferase 22 U/L (0-40); Blood Urea Nitrogen 27 mg/dL (8-23); Calcium 9.2 mg/dL (8.5-10.5); Carbon Dioxide 25 mmol/L (22-29); Chloride 104 mmol/L (98-107); Globulin 2.8 g/dL (1.3-4.6); Glucose 213 mg/dL (65-115); Osmolality Calculated 303 mOsm/kg (285-295); Potassium 4.2 mmol/L (3.5-5.1); Sodium 141 mmol/L (136-145); Total Bilirubin 0.7 mg/dL (0.15-1.2); Total Protein 6.2 g/dL (6.6-8.7)
[2022-11-12 07:55] LABS: Glucose Point of Care 282 mg/dL (70-110)
[2022-11-12] MEDS: aspirin 81 mg EC Tablet PO (08:00)
[2022-11-12] MEDS: guaiFENesin 600 mg Tablet 1200 MG PO ×2 (08:00→17:43)
[2022-11-12] MEDS: pantoprazole 40 mg SDV IVP (08:00)
[2022-11-12] MEDS: insulin lispro 100 unit/1 mL SUBCUT ×4 (08:01→21:05)
[2022-11-12] MEDS: budesonide 0.5 mg/2 mL Neb INHALATION ×2 (08:02→20:51)
[2022-11-12] MEDS: ipratropium-albuterol 3 mL Neb INHALATION ×4 (08:02→20:51)
[2022-11-12 11:07] LABS: Glucose Point of Care 226 mg/dL (70-110)
--- NOTE | 2022-11-12 14:37 | ECG_ITS ---
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 Interpretive Statements NAME OF STUDY: LEXISCAN SESTAMIBI STRESS TEST INDICATION: Angina elevated trop, PROCEDURE: At the baseline, the EKG revealed normal sinus rhythm with a probable progression suggesting old anteroseptal NM. Nonspecific T wave changes. Occasional PVCs. The baseline heart was 93 bpm with a blood pressue of 101/72 mm of Hg Lexiscan was infused over a period of 20 seconds. A total of 0.4 milligrams of Lexiscan was infused. The stress phase was continued for a total of 5 minutes. Heart rate at the end of the stress phase was 99 bpm with a blood pressure 83/43 mm of Hg. The EKG at the peak infusion revealed no significant changes. Sestamibi was injected 20 seconds after the Lexiscan infusion. Heart rate at the end of the recovery phase was 98 bpm with a blood pressure of 116/52 mm of Hg. CONCLUSION: 1. No significant EKG changes with the LexiScan infusion 2. No LexiScan induced chest pain or cardiac arrhythmia 3. Normal blood pressure and heart rate response 4. Sestamibi/sestamibi perfusion scan pending; see separate report. Electronically Signed On 11-15-2022 18:14:02 CDT by Ariana Schwartz M.D. [email or web address]
[2022-11-12 16:40] LABS: Glucose Point of Care 209 mg/dL (70-110)
[2022-11-12] MEDS: amiodarone 200 mg Tablet 400 MG PO (17:43)
[2022-11-12] MEDS: atorvastatin 40 mg Tablet 80 MG PO (17:43)
[2022-11-12] MEDS: vancomycin 1,000 MG in sodium chloride 0.9% 250 ML 250 MG IV (18:26)
--- NOTE | 2022-11-12 18:44 | P.PN_ITS ---
Subjective Subjective: patient appears to be much improved today. He is alert, awake, conversant, sitting in bedside chair Medications: Reviewed: Yes Vitals/I&O/Wt Last Vital Signs Temp 98.1 F 11/12/22 05:00 Pulse 98 11/12/22 18:00 Resp 26 H 11/12/22 18:00 BP 140/72 11/12/22 18:00 Pulse Ox 91 11/12/22 18:00 O2 Del Method Nasal Cannula 11/12/22 15:55 O2 Flow Rate 3 11/12/22 15:55 FiO2 30 11/12/22 04:00 11/12/22 11/12/22 11/12/22 06:59 14:59 22:59 Intake Total 1439.787 / 2218.000 290 / 290 360 / 650 Output Total 650 / 1550 425 / 425 Balance 789.787 / 668.000 290 / 290 -65 / 225 Weight last 48 hrs Weight 61.28 kg Weight 55.973 kg Physical Exam Narrative: General: Elderly,appears better today, more alert, sitting in chair at bedside HEENT: PERRLA, pupils bilaterally equal and reactive, pallors not present Chest: Normal vesicular breath sounds, no added sounds, equal good air entry bilaterally CVS: S1-S2 regular, no murmurs, no tachycardia, no gallops, no rubs Abdomen: Soft, nontender, no organomegaly, bowel sounds present Urinary Catheter Management: Ortiz: Cath Placed During This Visit: yes Reason for Continuing Indwelling Catheter: Accurate Measurement of Urinary Output in Critically Ill Patients Urinary Catheter Date of Insertion: 11/07/22 Urinary Catheter Time of Insertion: 05:30 Data 11/12/22 05:03 11/12/22 05:03 Micro: Microbiology 11/12/22 03:26 C.difficile Toxin B Gene (PCR) - Final Stool Routine Collection 11/12/22 03:26 Occult Blood (FIT) - Final Stool Routine Collection 11/06/22 16:50 Blood Culture - Final Blood NO GROWTH AFTER 5 DAYS 11/06/22 16:42 Blood Culture - Final Blood NO GROWTH AFTER 5 DAYS A&P Assessment and plan (1) Pneumonia: (2) COPD exacerbation: (3) Atrial fibrillation with RVR: (4) Chronic kidney disease (CKD), stage III (moderate): (5) Respiratory failure with hypoxia: (6) HTN (hypertension): Plan 77 year old male with PMH of ?COPD, atrial fibrillation, coronary artery disease, diabetes mellitus, hypertension, ischemic cardiomyopathy, HFrEF,moderate aortic stenosis admitted to the hospital on November 06, 2022 with chief complaints of worsening dyspnea. Found to have acute hypoxic respiratory failure for which patient was on BiPAP for 3 days on admission. Also had A-fib with RVR. Assessment: # Acute on chronic respiratory failure with hypoxia Patient has been on BiPAP between November 06, 2022-November 09, 2022 CT of the chest was performed given persistent leukocytosis and poor respiratory status, shows bilateral infiltrates most consistent with pneumonia. May be an atypical versus aspiration process. May have had a component of pulmonary edema from his A-fib with RVR however based on the CT primary problem appears to be his pneumonic infiltrates. Additional note made of empyema on the CT chest, however no big drainable collection is seen. Per my personal review of the CT, I do not see any big loculated collections. He has an area of mild pleural thickening for which we will continue antibiotics and likely monitor with serial imaging down the line. Less likely COPD exacerbation, taper steroids to prednisone 20mg today. #Bilateral infiltrates, concerning for pneumonia vs CHF Negative respiratory viral panel Currently patient is appropriately empirically covered with piperacillin/tazobactam and vancomycin, atypical coverage with levofloxacin added on November 10, 2022. MRSA nares positive. Negative urine Legionella and bacterial antigens. Sputum culture reviewed, currently Gram stain appears suggestive of normal respiratory melba Patient has recently been on high-dose steroids, per review of outpatient notes he has been on 20 mg p.o. 3 times daily at least over the last 2 weeks. Also black s been leukopenic since August 2022. 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 Appreciate swallow evaluation, patient needs a dysphagia level 4 diet with extremely thick pur?ed liquids. Maintaining saturation off BiPAP, bact at baseline 02 requirement of 2lpm Blood cx NGTD thus far # metabolic encephalopathy: related to hypoxia, hypernatremia, now resolved #Suspected heart failure given bilateral infiltrates, persistent A-fib Currently on amiodarone infusion. Heart rate is much better controlled now. Change to amiodarone 400mg po BID BNP elevated at 24,000 Echocardiogram with LVEF of 35 to 40%. RV is moderately hypokinetic. Compared to echocardiogram from 05/2022 LV systolic function has worsened. Suspect patient to have had acute systolic heart failure. Lasix on hold.. Currently clinically euvolemic #NSTEMI Baseline troponin elevated at 344, negative delta at 2 and 6 hours Together with low ejection fraction highly suspicious that patient had an NSTEMI. We will continue medical management for now is given patient's poor respiratory status he is unable to be likely to lay flat to obtain an angiogram. Continue anticoagulation with Lovenox 1mg/kg q12h Continue ASA 81 mg po daily Plan for stress test in am #Hypernatremia Sodium improved from 1 56-1 46 with D5 yesterday. Given improvement of 10 mEq, will hold further D5 infusion today. Recheck sodium with a.m. labs DKA:Resolved Lantus currently on hold as patient was developing hypoglycemia Currently on sliding scale insulin, monitor blood sugar # A fib, now controlled: transition to po amiodarone. Will plan to add low dose metoprolol if tolerates. Likely CKD stage III Admission serum creatinine is 1.3, down from 5.9 past admission Monitor BMP Avoid nephrotoxic's Monitor and output charting CODE STATUS: Full code DVT prophylaxis: Currently on full dose lovenox for NSTEMI PUD prophylaxis: Protonix PT OT assessment requested. Patient appears to be severely deconditioned. Will obtain therapy assessments Attestations Medical Necessity Statement*: planned stress test tomorrow, slowly improving, tx to [facility] Coding Level of Care Code Acute Code for Chg Fwd Diagnoses Pneumonia J18.9 COPD exacerbation J44.1 Atrial fibrillation with RVR I48.91 Chronic kidney disease (CKD), stage III (moderate) N18.30 Respiratory failure with hypoxia J96.91 HTN (hypertension) I10
--- NOTE | 2022-11-12 18:51 | PC.NURSE ---
PT has been up in chair most shift. Amio off at 1800.
[2022-11-12 21:02] LABS: Glucose Point of Care 170 mg/dL (70-110)
[2022-11-13] VITALS (32 sets, daily range): BP systolic 107–133; BP diastolic 49–72; PULSE 66–101; RESP 9–28; TEMP 36.3–36.8; O2SAT 90–99; BMI 20.9
[2022-11-13] MEDS: enoxaparin 60 mg/0.6 mL Syringe SUBCUT ×2 (03:57→18:06)
[2022-11-13] MEDS: piperacillin-tazobactam 3.375 GM in sodium chloride 0.9% (plus) 50 ML IV ×3 (03:57→20:08)
[2022-11-13 04:50] LABS: Basophils % 0.1 %; Eosinophils # 0.1 10^3/uL (0.0-0.8); Eosinophils % 0.8 %; Hemoglobin 8.3 g/dL (11.7-16.6); Lymphocytes # 0.7 10^3/uL (0.8-4.8); Lymphocytes % 6.7 %; Mean Corpuscular HGB Conc 29.6 g/dL (30.0-36.0); Mean Corpuscular Hemoglobin 27.6 pg (28.0-34.0); Mean Platelet Volume 11.9 fL (7.4-10.4); Monocytes # 1.2 10^3/uL (0.2-0.9); Monocytes % 10.8 %; Neutrophils # 8.64 10^3/uL (1.8-7.7); Neutrophils % 78.6 %; Nucleated Red Blood Cells % 0 %; Platelet Count 146 10^3/cmm (130-400); Red Blood Count 3.01 10^6/uL (4.1-5.3); Red Cell Distribution Width 16.1 % (12.1-15.1)
[2022-11-13 05:08] LABS: Alanine Aminotransferase 15 U/L (0-41); Albumin Level 3.1 g/dL (3.5-5.2); Alkaline Phosphatase 90 U/L (40-130); Anion Gap 16.8 (5-19); Aspartate Amino Transferase 19 U/L (0-40); Blood Urea Nitrogen 28 mg/dL (8-23); Calcium 8.4 mg/dL (8.5-10.5); Carbon Dioxide 23 mmol/L (22-29); Chloride 106 mmol/L (98-107); Globulin 2.6 g/dL (1.3-4.6); Glucose 110 mg/dL (65-115); Osmolality Calculated 300 mOsm/kg (285-295); Potassium 3.8 mmol/L (3.5-5.1); Sodium 142 mmol/L (136-145); Total Bilirubin 0.7 mg/dL (0.15-1.2); Total Protein 5.7 g/dL (6.6-8.7)
[2022-11-13] MEDS: regadenoson 0.4 Mg/5 ml Syringe IVP (07:58)
--- NOTE | 2022-11-13 08:00 | NMCV_ITS ---
NM sailaja perf SPECT r/s* [id number] Anuj Irving Age: 77 Gender: M : 1945 Exam Date: 11/13/2022 08:00 Ordering Phys: Belinda Roche MD Technologist: ROGER Serna Exam Location: [facility] Indications: CHEST PAIN STRESS TEST [facility] IMAGE PROTOCOL Rest/Stress 1 Lexiscan Day Radiopharmaceutical Dose (mCi) Administration Site Administered by Rest: Tc-99m 10.5 IV Eder Vinson, MEDICAL EDUCATION SPECIALIST Sestamibi Stress:Tc-99m 32.8 IV Eder Vinson, MEDICAL EDUCATION SPECIALIST Sestamibi Rest: 13-Nov-2022 60 Discovery 630 Stress: 13-Nov-2022 30 Discovery 630 0.4mg Lexiscan. Supine position only as patient was unable to lay prone. SPECT RESULTS Technical Quality: Excellent Raw Data Analysis: Normal Image Corrections: No attenuation or motion correction applied Summed Stress Score: 23 Summed Rest Score: 24 Summed Difference Score: 0 PERFUSION FINDINGS Moderate to large area of moderate to severely decreased tracer uptake in the basal and mid inferior, inferolateral and all the apical segments including the LV apex. No significant reversibility was noted in these regions. Increased tracer uptake was noted in the right ventricular free wall FUNCTIONAL RESULTS (calculated via Gated SPECT) Stress Image LV EF (%): 26 Stress EDV (mL):190 TID: 1.05 Stress ESV (mL):141 FUNCTIONAL FINDINGS: Segmental wall motion analysis revealing severe diffuse hypokinesia of the anterior wall, LV apex and the septum. IMPRESSIONS 1. Myocardial perfusion imaging revealing moderate to large area of persistent decreased tracer uptake involving the inferior, inferolateral and all the apical segments suggesting myocardial scarring in the distribution of all the 3 coronary arteries. No significant ischemia was noted in these regions. 2. Markedly diminished LV ejection fraction of 26%. 3. Wall motion abnormalities as mentioned above. 4. Moderately dilated LV cavity, with an end-systolic volume of 141 ml. No similar previous studies are available for comparison Dr Ariana Schwartz MD [facility] (Electronically Signed) Final Date: 13 November 2022 15:25 S
--- NOTE | 2022-11-13 08:07 | PC.CHAP ---
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 battery assembler dry cell visit [] Patient/Family/Request visit [] Outpatient visit [] Follow-up visit [] Physician referral [] Code/Alert [x] Routine visit [] Staff referral [] Actively dying [x] Patient sleeping [] Family support [] [] Out of room [] Palliative care [] [] Receiving care in room [] Pre-surgical visit [] Trauma [] Long length of stay [] ICU visit [] Other: Relational/Emotional Strength [] Patient feels connected with others/family/visitors/staff [] Distress [] Loneliness/isolation [] Abandonment Spirituality of Patient [] Person of Laxmi [] Attends Quaker of their Laxmi [] Believes in Prayer [] Reads Bible or Jain materials [] There are Spiritual issues to be addressed Application Penetration Tester Interventions [] Prayer [] Active listening [] Non-anxious presence [] Spiritual/emotional support [] Crisis/trauma care [] Spiritual counseling [] Bereavement support [] Provided bereavement packet [] Provided Bible/devotional materials [] Provided toy/stuffed animal, coloring book to patient or family member [] Provided Communion [] Anointing/[place] [] Salvation [] Completed spiritual assessment [] Other: Impact on Illness or Injury [] Angry [] Fearful [] Anxious [] Often cries [] Exhaustion [] Unable to work [] Unable to attend yazidism [] Unable to walk/stand [] Unable to read [] Unable to drive [] Unable to eat/drink [] Unable to sleep [] Unable to be with family [] Patient intubated [] Other: Summary Time spent with patient
[2022-11-13 09:04] LABS: Glucose Point of Care 186 mg/dL (70-110)
[2022-11-13] MEDS: guaiFENesin 600 mg Tablet 1200 MG PO ×2 (09:18→18:07)
[2022-11-13] MEDS: amiodarone 200 mg Tablet 400 MG PO ×2 (09:18→18:07)
[2022-11-13] MEDS: aspirin 81 mg EC Tablet PO (09:18)
[2022-11-13] MEDS: pantoprazole 40 mg SDV IVP (09:18)
[2022-11-13] MEDS: predniSONE 20 mg Tablet PO (09:18)
[2022-11-13] MEDS: insulin lispro 100 unit/1 mL SUBCUT ×4 (09:18→20:23)
[2022-11-13 11:17] LABS: Glucose Point of Care 153 mg/dL (70-110)
[2022-11-13] MEDS: ipratropium-albuterol 3 mL Neb INHALATION ×2 (11:27→15:33)
--- NOTE | 2022-11-13 16:53 | P.PN_ITS ---
Subjective Subjective: Patient underwent stress test today, awaiting results. No new complaints today. He feels well. Medications: Reviewed: Yes Medication Review Details: Generic Name Dose Route Start Last Admin Trade Name Jaclyn PRN Reason Stop Dose Admin Acetylcysteine 200 mg 11/06/22 20:00 11/08/22 07:59 Acetylcysteine 2 00 Mg/Ml Mdv 10 Ml INHALATION 200 mg Q4H.RESPIRATORY S CH Administration Albuterol/Ipratrop ium 3 ml 11/06/22 20:00 11/08/22 07:59 Ipratropium-Albu terol 3 Ml Neb INHALATION 3 ml QID.RESPIRATORY S CH Administration Apixaban 2.5 mg 11/06/22 20:00 11/08/22 08:40 Apixaban 5 Mg Ta blet PO 2.5 mg BID@0800,2000 SHIELA Administration Budesonide 0.5 mg 11/06/22 20:00 11/08/22 07:59 Budesonide 0.5 M g/2 Ml Neb INHALATION 0.5 mg BID.RESPIRATORY S CH Administration Diltiazem HCl 30 mg 11/07/22 14:15 11/08/22 10:09 Diltiazem 30 Mg Tablet PO Not Given Q6H SHIELA Furosemide 40 mg 11/08/22 09:00 11/08/22 08:09 Furosemide 10 Mg /Ml Sdv 4ml IVP 40 mg Q24H SHIELA Administration Guaifenesin 1,200 mg 11/07/22 09:00 11/08/22 10:10 Guaifenesin 600 Mg Tablet PO Not Given BID SHIELA Diltiazem HCl 100 mg/ Sodium 100 mls @ 0 mls/h r 11/06/22 18:45 11/08/22 05:14 Chloride IV Infused .Q0M SHIELA Titration Protocol Per Protocol Vancomycin HCl 1,0 00 mg/ 250 mls @ 250 mls /hr 11/06/22 19:00 11/07/22 20:05 Sodium Chloride IV Infused Q24H SHIELA Infusion Protocol Piperacillin Sod/T azobactam 50 mls @ 12.5 mls /hr 11/06/22 20:00 11/08/22 08:03 Sod 3.375 gm/ So dium Chloride IV Infused Q8H SHIELA Infusion Protocol Insulin Human Regu lar 250 unit 252.5 mls @ 0 mls /hr 11/07/22 06:30 11/08/22 05:14 / Sodium Chlorid e IV Infused .Q0M SHIELA Titration Protocol Per Protocol Insulin Glargine 30 unit 11/07/22 21:00 11/07/22 20:56 Insulin Glargine 100 Units/1 Ml SUBCUT 30 unit BEDTIME SHIELA Administration Insulin Human Lisp ro 0 unit 11/07/22 18:00 11/08/22 08:09 Insulin Lispro 1 00 Unit/1 Ml SUBCUT 6 unit WM&BEDTIME SHIELA Administration Protocol Lorazepam 1 mg 11/07/22 08:09 11/08/22 04:04 Lorazepam 2 Mg/M l Inj 1 Ml IVP 1 mg Q4H PRN Administration ANXIETY Methylprednisolone Sodium Succinate 60 mg 11/06/22 19:00 11/08/22 07:52 Methylprednisolo ne Sod Succ 125 Mg /2 Ml Inj IVP 60 mg Q6H SHIELA Administration Vitals/I&O/Wt Last Vital Signs Temp 97.5 F L 11/13/22 09:00 Pulse 77 11/13/22 15:30 Resp 16 11/13/22 15:30 BP 117/57 11/13/22 15:00 Pulse Ox 93 11/13/22 15:30 O2 Del Method Nasal Cannula 11/13/22 15:30 O2 Flow Rate 2 11/13/22 15:30 FiO2 30 11/13/22 06:34 11/13/22 11/13/22 11/13/22 06:59 14:59 22:59 Intake Total 580 / 2092.923 530 / 530 Output Total 450 / 1950 Balance 130 / 142.923 530 / 530 Weight last 48 hrs Weight 60.736 kg Weight 61.28 kg Physical Exam Narrative: General: No acute distress, AO x3 HEENT: PERRLA, pupils bilaterally equal and reactive, pallors not present Chest: Normal vesicular breath sounds, no added sounds, equal good air entry bilaterally CVS: S1-S2 regular, no murmurs, no tachycardia, no gallops, no rubs Abdomen: Soft, nontender, no organomegaly, bowel sounds present Neuro: No focal deficits, no facial deformity, AO x3, power 5/5 in all limbs Urinary Catheter Management: Ortiz: Cath Placed During This Visit: yes Reason for Continuing Indwelling Catheter: Accurate Measurement of Urinary Output in Critically Ill Patients Urinary Catheter Date of Insertion: 11/07/22 Urinary Catheter Time of Insertion: 05:30 Data 11/14/22 03:25 11/14/22 03:25 Micro: Microbiology 11/10/22 09:50 Gram Stain - Final Sputum - Expectorated Sputum Sputum Culture - Preliminary Coag positive Staphylococcus A&P Assessment and plan (1) Pneumonia: (2) COPD exacerbation: (3) Atrial fibrillation with RVR: (4) Chronic kidney disease (CKD), stage III (moderate): (5) Respiratory failure with hypoxia: (6) HTN (hypertension): Plan 77 year old male with PMH of ?COPD, atrial fibrillation, coronary artery disease, diabetes mellitus, hypertension, ischemic cardiomyopathy, HFrEF,moderate aortic stenosis admitted to the hospital on November 06, 2022 with chief complaints of worsening dyspnea. Found to have acute hypoxic respiratory failure for which patient was on BiPAP for 3 days on admission. Also had A-fib with RVR. Assessment: # Acute on chronic respiratory failure with hypoxia Patient has been on BiPAP between November 06, 2022-November 09, 2022 CT of the chest was performed given persistent leukocytosis and poor respiratory status, shows bilateral infiltrates most consistent with pneumonia. May be an atypical versus aspiration process. May have had a component of pulmonary edema from his A-fib with RVR however based on the CT primary problem appears to be his pneumonic infiltrates. Additional note made of empyema on the CT chest, however no big drainable collection is seen. Per my personal review of the CT, I do not see any big loculated collections. He has an area of mild pleural thickening for which we will continue antibiotics and likely monitor with serial imaging down the line. Less likely COPD exacerbation, taper steroids to prednisone 20mg today. #Bilateral infiltrates, concerning for pneumonia vs CHF Negative respiratory viral panel Currently patient is appropriately empirically covered with piperacillin/tazobactam and vancomycin, atypical coverage with levofloxacin added on November 10, 2022. MRSA nares positive. Negative urine Legionella and bacterial antigens. Sputum culture reviewed, currently Gram stain appears suggestive of normal respiratory melba Patient has recently been on high-dose steroids, per review of outpatient notes he has been on 20 mg p.o. 3 times daily at least over the last 2 weeks. Also has been leukopenic since August 2022. 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 Appreciate swallow evaluation, patient needs a dysphagia level 4 diet with extremely thick pur?ed liquids. Maintaining saturation off BiPAP, bact at baseline 02 requirement of 2lpm Blood cx NGTD thus far # metabolic encephalopathy: related to hypoxia, hypernatremia, now resolved #Suspected heart failure given bilateral infiltrates, persistent A-fib Currently on amiodarone infusion. Heart rate is much better controlled now. Change to amiodarone 400mg po BID BNP elevated at 24,000 Echocardiogram with LVEF of 35 to 40%. RV is moderately hypokinetic. Compared to echocardiogram from 05/2022 LV systolic function has worsened. Suspect patie nt to have had acute systolic heart failure. Lasix on hold.. Currently clinically euvolemic #NSTEMI Baseline troponin elevated at 344, negative delta at 2 and 6 hours Together with low ejection fraction highly suspicious that patient had an NSTEMI. We will continue medical management for now is given patient's poor respiratory status he is unable to be likely to lay flat to obtain an angiogram. Continue anticoagulation with Lovenox 1mg/kg q12h Continue ASA 81 mg po daily Plan for stress test in am #Hypernatremia Sodium improved from 1 56-1 46 with D5 yesterday. Given improvement of 10 mEq, will hold further D5 infusion today. Recheck sodium with a.m. labs DKA:Resolved Lantus currently on hold as patient was developing hypoglycemia Currently on sliding scale insulin, monitor blood sugar # A fib, now controlled: transition to po amiodarone. Will plan to add low dose metoprolol if tolerates. Likely CKD stage III Admission serum creatinine is 1.3, down from 5.9 past admission Monitor BMP Avoid nephrotoxic's Monitor and output charting CODE STATUS: Full code DVT prophylaxis: Currently on full dose lovenox for NSTEMI PUD prophylaxis: Protonix PT OT assessment requested. Patient appears to be severely deconditioned. Will obtain therapy assessments Plan for today 421: Awaiting stress test results, sputum culture with coag positive Staphylococcus, awaiting susceptibilities. Attestations Medical Necessity Statement*: awaiting stress test results, awaiting susceptibilities, coninue iv abx Coding Level of Care Code Acute Code for Chg Fwd Diagnoses Pneumonia J18.9 COPD exacerbation J44.1 Atrial fibrillation with RVR I48.91 Chronic kidney disease (CKD), stage III (moderate) N18.30 Respiratory failure with hypoxia J96.91 HTN (hypertension) I10
[2022-11-13 17:12] LABS: Glucose Point of Care 372 mg/dL (70-110)
[2022-11-13] MEDS: ciprofloxacin 0.3% Op Soln 2.5 mL Btl 1 DROP EYE-BOTH ×2 (18:06→20:08)
[2022-11-13] MEDS: atorvastatin 40 mg Tablet 80 MG PO (18:07)
[2022-11-13] MEDS: metoprolol tartrate 25 mg Tablet 12.5 MG PO (18:07)
[2022-11-13] MEDS: vancomycin 1,000 MG in sodium chloride 0.9% 250 ML 250 MG IV (18:08)
--- NOTE | 2022-11-13 18:34 | ECG_ITS ---
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 Measurements Intervals [place] Rate: 130 P: 0 SD: 0 QRS: 75 QRSD: 126 T: -15 QT: 327 QTc: 481 Interpretive Statements ATRIAL FIBRILLATION WITH RAPID VENTRICULAR RESPONSE POSSIBLE INFERIOR MYOCARDIAL INFARCTION , OF INDETERMINATE AGE [30 ms Q WAVE IN II/aVF] WARNING: DATA QUALITY MAY AFFECT INTERPRETATION Compared to ECG 11/09/2022 17:27:22 No significant changes Electronically Signed On 11-13-2022 22:08:49 CDT by Ariana Schwartz M.D. [email or web address]
[2022-11-13 20:15] LABS: Glucose Point of Care 379 mg/dL (70-110)
[2022-11-14] VITALS (19 sets, daily range): BP systolic 111–142; BP diastolic 50–69; PULSE 61–87; RESP 12–31; TEMP 36.5–37.2; O2SAT 86–98
[2022-11-14] MEDS: piperacillin-tazobactam 3.375 GM in sodium chloride 0.9% (plus) 50 ML IV ×2 (04:16→12:40)
[2022-11-14] MEDS: enoxaparin 60 mg/0.6 mL Syringe SUBCUT (04:19)
[2022-11-14] MEDS: metoprolol tartrate 25 mg Tablet 12.5 MG PO (04:19)
[2022-11-14 04:56] LABS: Basophils % 0.1 %; Eosinophils % 0.2 %; Hematocrit 23.9 % (42.0-52.0); Hemoglobin 7.4 g/dL (11.7-16.6); Lymphocytes # 0.5 10^3/uL (0.8-4.8); Lymphocytes % 4.5 %; Mean Corpuscular Volume 90.5 fl (80-94); Mean Platelet Volume 11.7 fL (7.4-10.4); Monocytes # 1.7 10^3/uL (0.2-0.9); Monocytes % 14.3 %; Neutrophils # 9.28 10^3/uL (1.8-7.7); Neutrophils % 76.9 %; Nucleated Red Blood Cells % 0.2 %; Platelet Count 146 10^3/cmm (130-400); Red Blood Count 2.64 10^6/uL (4.1-5.3); Red Cell Distribution Width 16.3 % (12.1-15.1); White Blood Count 12.1 10^3/uL (4.0-10.0)
[2022-11-14 05:31] LABS: Alanine Aminotransferase 15 U/L (0-41); Albumin Level 2.8 g/dL (3.5-5.2); Alkaline Phosphatase 73 U/L (40-130); Anion Gap 16.5 (5-19); Aspartate Amino Transferase 24 U/L (0-40); Blood Urea Nitrogen 24 mg/dL (8-23); Calcium 8.3 mg/dL (8.5-10.5); Carbon Dioxide 22 mmol/L (22-29); Chloride 104 mmol/L (98-107); Globulin 2.4 g/dL (1.3-4.6); Glucose 47 mg/dL (65-115); Magnesium 1.9 mg/dL (1.7-2.3); Osmolality Calculated 289 mOsm/kg (285-295); Potassium 3.5 mmol/L (3.5-5.1); Sodium 139 mmol/L (136-145); Total Bilirubin 0.5 mg/dL (0.15-1.2); Total Protein 5.2 g/dL (6.6-8.7)
[2022-11-14 07:24] LABS: Glucose Point of Care 138 mg/dL (70-110)
[2022-11-14] MEDS: ipratropium-albuterol 3 mL Neb INHALATION ×3 (07:31→15:11)
[2022-11-14] MEDS: budesonide 0.5 mg/2 mL Neb INHALATION (07:31)
[2022-11-14 08:26] LABS: Glucose Point of Care 142 mg/dL (70-110)
--- NOTE | 2022-11-14 08:46 | PC.NURSE ---
Dr. Wyatt to see patient. Updated on patient condition. New orders noted and implemented. We will walk patient to assess heart rate with activity.
[2022-11-14] MEDS: predniSONE 20 mg Tablet 10 MG PO (08:55)
[2022-11-14] MEDS: amiodarone 200 mg Tablet 400 MG PO (08:55)
[2022-11-14] MEDS: pantoprazole 40 mg SDV IVP (08:57)
[2022-11-14] MEDS: guaiFENesin 600 mg Tablet 1200 MG PO (08:57)
[2022-11-14] MEDS: aspirin 81 mg EC Tablet PO (08:57)
--- NOTE | 2022-11-14 10:39 | P.DS_ITS ---
Discharge Providers Date of Admission: 11/06/22 18:24 Date of Discharge: November 14, 2022 Attending Provider at Admission: Yung Morrison MD Attending Provider at Discharge: Belinda Roche MD Primary Care Provider: Paola Moore MD Diagnoses at Discharge Discharge Diagnosis (1) Pneumonia: Status: Acute (2) COPD exacerbation: Status: Acute (3) Atrial fibrillation with RVR: Status: Acute (4) Chronic kidney disease (CKD), stage III (moderate): Status: Acute (5) Respiratory failure with hypoxia: Status: Acute (6) HTN (hypertension): Status: Acute Reason for Visit Reason for Visit: pneumonia Hospital Course Hospital Course 77 year old male with PMH of ?COPD, atrial fibrillation, coronary artery disease, diabetes mellitus, hypertension, ischemic cardiomyopathy, HFrEF,moderate aortic stenosis admitted to the hospital on November 06, 2022 with chief complaints of worsening dyspnea.? Found to have acute hypoxic respiratory failure for which patient was on BiPAP for 3 days on admission.? Also had A-fib with RVR. He is currently much improved. He was managed as follows: Assessment: # Acute on chronic respiratory failure with hypoxia related to pneumonia Patient had been on BiPAP between November 06, 2022-November 09, [address] of the chest showed bilateral extensive infiltrates most consistent with pneumonia. May be an atypical versus aspiration process. May have had a component of pulmonary edema from his A-fib with RVR upon admission however based on the CT perfromed few days later, primary problem appears to be his pneumonic infiltrates. Additional note made of empyema on the CT chest, however no gross drainable collection is seen.? Per my personal review of the CT, I do not see any major loculated collections.? He has an area of mild pleural thickening for which he was treated with antibiotics. Serail imaging may be considered in 3 weeks after follow up with PCP . Less likely COPD exacerbation, steroids tapered from Solu-Medrol 100 mg every 6 hours to to prednisone 10 mg at discharge. Patient instructed to continue the tapering, prednisone 10 mg over next 3 days, then 5 mg over next 3 days and then stop. #Bilateral infiltrates, concerning for pneumonia Negative respiratory viral panel Patient was treated with piperacillin/tazobactam and vancomycin, atypical coverage with levofloxacin added on November 10, 2022. MRSA nares positive, sputum culture eventually resulted with MSSA. Overall he has received 9 days of antibiotic treatment in-house. Will discharge patient on po Augmentin to complete total 14 days for MSSA pneumonia. Blood cultures remain negative to date. Negative urine Legionella and bacterial antigens. Patient has recently been on high-dose steroids, per review of outpatient notes he has been on 20 mg p.o. 3 times daily at least over the last 2 weeks.? Also has been leukopenic since August 2022.? Both of the latter are risk factors for development of pneumocystis pneumonia . Pending serum beta glucan screen to assess for possible pneumocystis pneumonia, pending pneumocystis PCR from induced sputum. Given recovery of Staph aureus on sputum cultures, and clinical picture seems to be compatible with MSSA pneumonia. PJP appearing less likely now. Can be followed up the pending results as outpatient. CT chest without contrast showing bilateral infiltrates diffusely, more prominent in the lower lobes, which are support representative of pneumonia, possibility of aspiration pneumonia not excluded. Appreciate swallow evaluation, patient needs a dysphagia level 4 diet with extremely thick pur?ed liquids. His oxygen requirements are now back to his baseline between 2 to 3 L/min # metabolic encephalopathy: related to hypoxia, hypernatremia, now resolved, patient is awake alert and oriented x3 at discharge. #Suspected heart failure given bilateral infiltrates, persistent A-fib BNP elevated at 24,000 Echocardiogram with LVEF of 35 to 40%.? RV is moderately hypokinetic.? Compared to echocardiogram from 05/2022 LV systolic function has worsened.? Suspect patient to have had acute systolic heart failure. Lasix on hold..??Patient remained clinically euvolemic after discontinuing Lasix. He is euvolemic at discharge. Diuretics will be changed to as needed. #NSTEMI Baseline troponin elevated at 344, negative delta at 2 and 6 hours Together with low ejection fraction there was suspicion for NSTEMI. He received presumptive anticoagulation with Lovenox during admission. Angiogram could not be performed as patient was unable to lay flat and he was acutely ill with a pneumonia. Stress test was performed which showed moderate to large area of persistent decreased tracer uptake in the inferior inferior lateral and all apical septal segments suggesting myocardial scarring. No significant acute ischemia was noted. These changes are likely related to patient's known history of coronary artery disease for which she has had a CABG in the past. Continue ASA 81 mg po daily #Hypernatremia Now resolved, needed to be on D5 infusion during admission. DKA: Resolved Present on admission, resolved at discharge. Patient has an HbA1c of 9.5. Recommend follow-up with primary care provider within a week of discharge to address jail glycemic control. # A fib, now controlled: Needed to be on amiodarone infusion during the course of admission. Currently patient is on amiodarone 400 mg p.o. twice daily, to be reduced to 400 mg p.o. daily at the end of 1 week. Also started on metoprolol 12.5 mg p.o. twice daily. Currently heart rate ranging between 69-72 with addition of metoprolol. Follow-up with primary care physician in 1 week of discharge to see if metoprolol could be titrated up. Not adding anticoagulation given patient's anemia, hemoglobin currently at 7.4. Appears patient's baseline is between 8.5-9.2. No active sourec of bleeding dientified # Likely CKD stage III Admission serum creatinine is 1.0, down from 5.9 past admission Monitor BMP Avoid nephrotoxic's Monitor and output charting CODE STATUS: Full code Obtained PT OT ST assessments Patient is being discharged today in improved condition. He lives with his and stepdaughter at home Physical Exam Narrative: General: No acute distress, AO x3 HEENT: PERRLA, pupils bilaterally equal and reactive, pallors not present Chest: Normal vesicular breath sounds, no added sounds, equal good air entry bilaterally CVS: S1-S2 regular, no murmurs, no tachycardia, no gallops, no rubs Abdomen: Soft, nontender, no organomegaly, bowel sounds present Neuro: No focal deficits, no facial deformity, AO x3, power 5/5 in all limbs Urinary Catheter Management: Ortiz: Cath Placed During This Visit: yes Reason for Continuing Indwelling Catheter: Acute Urinary Retention or Obstruction Urinary Catheter Date of Insertion: 11/07/22 Urinary Catheter Time of Insertion: 05:30 Discharge Data Studies Completed and Pending Completed Studies During Hospitalization Category Date Time Status CT chest wo con [id number] Routine Cat Scan 11/09/22 15:[address] head wo con* [id number] Routine Cat Scan 11/09/22 19:17 Completed Cardiac Stress Test MIBI [Sestamibi Stress Test Request Exams 11/12/22 14:37 Draft ] Routine XR chest 1V portable [id number] Stat Exams 11/06/22 15:48 Completed XR chest 1V portable [id number] Stat Exams 11/07/22 05:29 Completed NM sailaja perf SPECT r/s* [id number] Routine Nuc Med 11/13/22 08:00 Completed CV. echo complete* [id number] Routine Ultrasound 11/10/22 15:19 Completed Pending at discharge Category Date Time Status Fungitell Glucan Assay (Blood) Routine Lab 11/10/22 02:52 Received GALACTOMANAN [Aspergillus AG,EIA,Serum] Stat Lab 11/10/22 02:52 Received Histoplasma Quantitative AG Stat Lab 11/10/22 16:32 Received Occult Blood Stool [Immunochemical Fecal OCB] Routine Lab 11/14/22 Received Radiology Impressions Chest X-Ray 11/07/22 05:29 IMPRESSION: 1. Increasing/worsening left mid and lower lung consolidation. 2. Small bilateral pleural effusions slightly worse on the right versus the left. 3. Persistent right basilar consolidation. Chest CT 11/09/22 15:19 IMPRESSION: 1. Extensive ground-glass opacities with areas of more confluency alveolar airspace disease with air bronchograms in the left lung diffusely and in the right lower lobe, increased significantly compared with the previous study. There is also worsening reticulonodular interstitial thickening in the right upper lobe and right middle lobe that has also increased. Findings are concerning for worsening pneumonia, including atypical organisms. Recommend followup chest imaging to insure resolution of these findings. 2. Small loculated pleural effusion associated pleural thickening in the posterior/man left hemithorax is stable. Possible infected pleural fluid or empyema cannot be ruled out. Recommend clinical correlation. 3. Debris layering in the left mainstem bronchus. This may represent bronchial secretions. 4. Stable nonspecific mediastinal lymphadenopathy. This could be reactive in nature. However, followup imaging is recommended to ensure stability/resolution. 5. Incidental/nonacute findings are listed in the report. ADDENDUM: 11/09/22 [id number] THIS REPORT CONTAINS FINDINGS THAT MAY BE CRITICAL TO PATIENT CARE. BELINDA Law confirmed on 11/09/2022 at 11:23 PM CDT that a copy of the report containing critical findings was received and there were no questions. Head CT 11/09/22 19:17 IMPRESSION: 1. No acute intracranial abnormality. 2. Advanced diffuse cerebral atrophy and sequela of chronic small vessel ischemic disease. Laboratory Results WBC 12.1 10^3/uL (4.0-10.0) H 11/14/22 03:25 Corrected WBC Cancelled 11/11/22 09:26 RBC 2.64 10^6/uL (4.1-5.3) L 11/14/22 03:25 Hgb 7.4 g/dL (11.7-16.6) L 11/14/22 03:25 Hct 23.9 % (42.0-52.0) L 11/14/22 03:25 MCV 90.5 fl (80-94) 11/14/22 03:25 MCH 28.0 pg (28.0-34.0) 11/14/22 03:25 MCHC 31.0 g/dL (30.0-36.0) 11/14/22 03:25 RDW 16.3 % (12.1-15.1) H 11/14/22 03:25 Plt Count 146 10^3/cmm (130-400) 11/14/22 03:25 MPV 11.7 fL (7.4-10.4) H 11/14/22 03:25 Gran % Cancelled 11/11/22 09:26 Neut % (Auto) 76.9 % 11/14/22 03:25 Lymph % (Auto) 4.5 % 11/14/22 03:25 [place] % (Auto) 14.3 % 11/14/22 03:25 Eos % (Auto) 0.2 % 11/14/22 03:25 Baso % (Auto) 0.1 % 11/14/22 03:25 Neut # (Auto) 9.28 10^3/uL (1.8-7.7) H 11/14/22 03:25 Lymph # (Auto) 0.5 10^3/uL (0.8-4.8) L 11/14/22 03:25 [place] # (Auto) 1.7 10^3/uL (0.2-0.9) H 11/14/22 03:25 Eos # (Auto) 0.0 10^3/uL (0.0-0.8) 11/14/22 03:25 Baso # (Auto) 0.0 10^3/uL (0.0-0.1) 11/14/22 03:25 Absolute Gran (auto) Cancelled 11/11/22 09:26 Nucleated RBC % (auto) 0.2 % 11/14/22 03:25 Nucleated RBCs # 0.0 /100WBC 11/14/22 03:25 Specimen Type Arterial 11/09/22 02:09 Sample Site Radial, right 11/09/22 02:09 ABG pH 7.50 (7.35-7.45) H 11/09/22 02:09 ABG pCO2 37.3 mmHg (35-45) 11/09/22 02:09 ABG pO2 71.5 mmHg (80.0-100.0) L 11/09/22 02:09 ABG HCO3 29.2 mmol/L (22-26) H 11/09/22 02:09 ABG O2 Saturation 96.0 11/09/22 02:09 ABG Base Excess 5.7 mmol/L (-2.0-2.0) H 11/09/22 02:09 Lei Test Pos 11/09/22 02:09 A-a O2 Gradient 17.1 mmHg (5-10) H 11/09/22 02:09 Hematocrit 26.8 % (42-52) L 11/09/22 02:09 Hgb O2 Saturation 94.2 % (95-100) L 11/09/22 02:09 Carboxyhemoglobin 1.6 %THgb (0.4-20.1) 11/09/22 02:09 Methemoglobin 0.3 % (0.4-1.5) L 11/09/22 02:09 Total Hemoglobin 8.7 g/dL (14-18) L 11/09/22 02:09 Sodium 156.0 mmol/L (131-143) H 11/09/22 02:09 Potassium 2.8 mmol/L (3.5-5.0) L 11/09/22 02:09 Glucose 84.0 mg/dL (70-115) 11/09/22 02:09 Ionized Calcium 1.3 mmol/L (1.1-1.4) 11/09/22 02:09 O2 Delivery Device Bipap 11/09/22 02:09 O2 Liters/Min 5.0 % 11/06/22 16:15 FiO2 35.0 % 11/09/22 02:09 CPAP 0.0 cmH20 11/07/22 05:33 Security Support Analyst ID [email or web address] 11/09/22 02:09 Sodium 139 mmol/L (136-145) 11/14/22 03:25 Potassium 3.5 mmol/L (3.5-5.1) 11/14/22 03:25 Chloride 104 mmol/L (98-107) 11/14/22 03:25 Carbon Dioxide 22 mmol/L (22-29) 11/14/22 03:25 Anion Gap 16.5 (5-19) 11/14/22 03:25 BUN 24 mg/dL (8-23) H 11/14/22 03:25 Creatinine 1.0 mg/dL (0.7-1.2) 11/14/22 03:25 GFR Calculation Not Reportable 11/14/22 03:25 Glucose 47 mg/dL (65-115) L 11/14/22 03:25 POC Glucose 142 mg/dL (70-110) H 11/14/22 08:22 Estimat Average Glucose 226 11/07/22 03:38 Hemoglobin A1c 9.5 % (4.0-6.0) H 11/07/22 03:38 Calculated Osmolality 289 mOsm/kg (285-295) 11/14/22 03:25 Lactic Acid 2.7 mmol/L (0.5-2.2) H 11/07/22 03:38 Lactic Acid (Sepsis) 2.0 mmol/L (0.5-2.2) 11/07/22 06:38 Calcium 8.3 mg/dL (8.5-10.5) L 11/14/22 03:25 Magnesium 1.9 mg/dL (1.7-2.3) 11/14/22 03:25 Total Bilirubin 0.5 mg/dL (0.15-1.2) 11/14/22 03:25 AST 24 U/L (0-40) 11/14/22 03:25 ALT 15 U/L (0-41) 11/14/22 03:25 Alkaline Phosphatase 73 U/L (40-130) 11/14/22 03:25 Troponin T Baseline 344 ng/L (0-15) H* 11/09/22 15:56 Troponin T 120 Minute 322.3 ng/L (0-15) H 11/09/22 18:16 Delta Troponin T -21.7 ABS# (0-10) L 11/09/22 18:16 Troponin T Hi Sens 6Hr 335.0 ng/L (0-15) H 11/09/22 21:20 Troponin T Hi Sens 6Hr Delta -9.0 ng/L (0-12) L 11/09/22 21:20 NT-Pro-B Natriuret Pep 48352 pg/mL (0-450) H 11/09/22 15:56 Total Protein 5.2 g/dL (6.6-8.7) L 11/14/22 03:25 Albumin 2.8 g/dL (3.5-5.2) L 11/14/22 03:25 Globulin 2.4 g/dL (1.3-4.6) 11/14/22 03:25 Procalcitonin 1.21 ng/mL (0-0.5) H 11/07/22 03:38 Nasal Influ A H1 2008 PCR Not detected (NOT DETECT) 11/09/22 20:50 Vancomycin Trough 14.1 ug/mL (10-15) 11/11/22 18:00 Adenovirus (PCR) Not detected (NOT DETECT) 11/09/22 20:50 C. pneumoniae DNA (PCR) Not detected (NOT DETECT) 11/09/22 20:50 Coronavirus 229E (PCR) Not detected (NOT DETECT) 11/09/22 20:50 Human Metapneumovir PCR Not detected (NOT DETECT) 11/09/22 20:50 Influenza A (H1) PCR Not detected (NOT DETECT) 11/09/22 20:50 Influenza A (H3) PCR Not detected (NOT DETECT) 11/09/22 20:50 Influenza Type A Ag negative (Negative) 11/06/22 16:06 Influenza Type A (PCR) Not detected (NOT DETECT) 11/09/22 20:50 Influenza Type B Ag negative (Negative) 11/06/22 16:06 Influenza Type B (PCR) Not detected (NOT DETECT) 11/09/22 20:50 M. pneumoniae (PCR) Not detected (NOT DETECT) 11/09/22 20:50 Parainfluenza 1 (PCR) Not detected (NOT DETECT) 11/09/22 20:50 Parainfluenza 2 (PCR) Not detected (NOT DETECT) 11/09/22 20:50 Parainfluenza 3 (PCR) Not detected (NOT DETECT) 11/09/22 20:50 Parainfluenza 4 (PCR) Not detected (NOT DETECT) 11/09/22 20:50 RSV Type A (PCR) Not detected (NOT DETECT) 11/09/22 20:50 RSV Type B (PCR) Not detected (NOT DETECT) 11/09/22 20:50 Entero/Rhino (PCR) Not detected (NOT DETECT) 11/09/22 20:50 SARS-CoV-2 (PCR) Not detected (NOT DETECT) 11/09/22 20:50 Beta-(1,3)-D-Glucan Cancelled 11/10/22 09:50 B-(1,3)-D-Glucan Intrp Cancelled 11/10/22 09:50 Vitals Last Vital Signs Temp 98.0 F 11/14/22 08:00 Pulse 69 11/14/22 08:00 Resp 22 H 11/14/22 08:00 BP 121/50 11/14/22 08:00 Pulse Ox 86 L 11/14/22 10:24 O2 Del Method Nasal Cannula 11/14/22 08:00 O2 Flow Rate 3 11/14/22 10:24 FiO2 30 11/13/22 19:52 Discharge Plan Discharge Patient Disposition: Home Condition: Stable Prescriptions: New Pacerone 200 mg Tablet 400 mg PO BID 30 Days Qty: 120 2RF Rx Instructions: take 400mg BId for 7 days, then change to 400mg once daily metoprolol tartrate 25 mg Tablet 12.5 mg PO Q12H 30 Days Qty: 30 2RF aspirin 81 mg Tablet,Delayed Release (Dr/Ec) 81 mg PO DAILY Qty: 0 0RF amoxicillin-pot clavulanate 875-125 mg tablet 1 tab PO BID 4 Days Qty: 8 0RF prednisone 5 mg tablets,dose pack 5 mg PO BID 6 Days Qty: 12 0RF Rx Instructions: take 5mg po daily for 3 days, then reduce to 2.5 mg (half pill) for 3 days, then stop Continued omeprazole 40 mg Capsule,Delayed Release(Dr/Ec) 40 mg PO BID docusate sodium 100 mg Capsule 100 - 200 mg PO DAILY PRN (Reason: Constipation) cholecalciferol (vitamin D3) [Vitamin D3] 25 mcg (1,000 unit) Capsule 25 mcg PO DAILY furosemide [Lasix] 40 mg Tablet 40 mg PO QAM Hold Instructions: Resume on 09/17/22. fluticasone propion-salmeterol [Advair Diskus] 100-50 mcg/dose Blister With Device 1 inh INHALATION BID carboxymethylcellulose sodium [Refresh Liquigel] 1 % Drops, Liquid Gel 1 drp OPHTHALMIC (EYE) BID PRN (Reason: Dry Eye(S)) ferrous gluconate 324 mg (38 mg iron) Tablet 324 mg PO BID ipratropium-albuterol 20-100 mcg/actuation Mist 1 puff INHALATION Q6H PRN (Reason: Shortness Of Breath) ipratropium-albuterol 0.5 mg-3 mg(2.5 mg base)/3 mL solution for nebulization 3 ml inhalation Q4H PRN (Reason: shortness of breath or wheezing) Qty: 90 0RF albuterol sulfate 90 mcg/actuation HFA aerosol inhaler 2 inh inhalation Q4H PRN (Reason: shortness of breath or wheezing) Qty: 8.5 0RF atorvastatin 80 mg Tablet 80 mg PO QPM glimepiride 4 mg Tablet 2 mg PO DAILY bacitracin-polymyxin B 500-10,000 unit/gram Ointment 1 applic OPHTHALMIC (EYE) QID Rx Instructions: administer while awake Centrum Silver Men 300-600-300 mcg Tablet 1 tab PO DAILY Lantus Solostar U-100 Insulin 100 unit/mL (3 mL) insulin pen 10 unit SUBCUT BID Held Eliquis 5 mg Tablet 2.5 mg PO BID Qty: 30 0RF Hold Instructions: Resume on 11/21/22. hold until follow up with PCP Discontinued doxycycline hyclate 100 mg capsule 100 mg PO BID 10 Days Qty: 20 0RF prednisone 20 mg tablet 20 mg PO TID Qty: 15 0RF Rx Instructions: 1 p.o. 3 times daily x3 days, 1 p.o. twice daily x2 days, 1 p.o. daily x2 days amlodipine 10 mg tablet 10 mg PO DAILY Qty: 30 2RF Discharge Orders: Discharge Order (Routine); Ordered 11/14/22 Ordered By: Belinda Roche Referrals: Paola Moore MD [Primary Care Provider] - 4-7 days Karyn Chester FNP [Nurse Practitioner] - 1 week Discharge Diet: As Directed Discharge Activity: Increase activity as tolerated and As per PT/OT instructions Patient Instructions: Opioid Safety Discharge Attestations Time Spent in Discharge Care*: greater than 30 min Quality Metrics Clinical Quality Measures [ Acute Myocardial Infaction { Clinical Trial Participant: No; Contraindication to aspirin: None; Aspirin prescribed; Contraindication to statin: None; Statin prescribed;}] Coding Level of Care Code Acute Code for [facility] Diagnoses Pneumonia J18.9 COPD exacerbation J44.1 Atrial fibrillation with RVR I48.91 Chronic kidney disease (CKD), stage III (moderate) N18.30 Respiratory failure with hypoxia J96.91 HTN (hypertension) I10
[2022-11-14 12:01] LABS: Glucose Point of Care 291 mg/dL (70-110)
[2022-11-14] MEDS: insulin lispro 100 unit/1 mL SUBCUT (12:40)
[2022-11-14] MEDS: ciprofloxacin 0.3% Op Soln 2.5 mL Btl 1 DROP EYE-BOTH ×2 (15:06)
[2022-11-15 10:24] LABS: P. Jirovecii DNA QL PCR NOT DETECTED; P. Jirovecii DNA QL PCR Source SPUTUM
[2022-11-15 16:29] LABS: Aspergillus AG,EIA,Serum NOT DETECTED; Aspergillus Galactomannan Inde <0.50
[2022-11-17 19:43] LABS: Fungitell 1-3-B Glucan Assay <31 pg/mL; Interpretation NEGATIVE
[2022-11-23 19:09] LABS: Histoplasma Antigen (Quant) NONE DETECTED; Histoplasma Antigen Interpreta NEGATIVE; Histoplasma Antigen Specimen URINE
== END 2022-11-14 15:15 | disposition home health service (06) | DRG 177 ==
LOC: ER 17:49 → ICU 18:45 → CSU 11-13 20:47
PROVIDERS: Family Medicine; Internal Medicine; Admitting Provider Internal Medicine; Emergency Provider Family Medicine; PCP Family Medicine; Visit Provider Student in an Organized Health Care Education/Training Program
DX: J15.211 Pneumonia due to Methicillin susceptible Staphylococcus aureus (principal); E11.10 Type 2 diabetes mellitus with ketoacidosis without coma; I50.23 Acute on chronic systolic (congestive) heart failure; J96.21 Acute and chronic respiratory failure with hypoxia; I21.4 Non-ST elevation (NSTEMI) myocardial infarction; I48.19 Other persistent atrial fibrillation; J44.0 Chronic obstructive pulmonary disease with (acute) lower respiratory infection; I13.0 Hypertensive heart and chronic kidney disease with heart failure and stage 1 through stage 4 chronic kidney disease, or unspecified chronic kidney disease; E87.1 Hypo-osmolality and hyponatremia; E87.0 Hyperosmolality and hypernatremia; I25.10 Atherosclerotic heart disease of native coronary artery without angina pectoris; E11.22 Type 2 diabetes mellitus with diabetic chronic kidney disease; N18.30 Chronic kidney disease, stage 3 unspecified; I25.5 Ischemic cardiomyopathy; I35.0 Nonrheumatic aortic (valve) stenosis; J69.0 Pneumonitis due to inhalation of food and vomit; Z79.51 Long term (current) use of inhaled steroids; Z79.84 Long term (current) use of oral hypoglycemic drugs; Z79.4 Long term (current) use of insulin; E86.0 Dehydration; Z87.891 Personal history of nicotine dependence; Z95.3 Presence of xenogenic heart valve; Z87.01 Personal history of pneumonia (recurrent); D63.1 Anemia in chronic kidney disease
CPT/HCPCS: 36415; 36416; 36600; 51702; 70450; 71045; 71250; 78452; 80048; 80051; 80053; 80202; 82274; 82330; 82805; 82962; 83036; 83605; 83735; 83880; 84145; 84484; 85025; 86403; 87040; 87070; 87077; 87186; 87205; 87305; 87385; 87449; 87486; 87493; 87581; 87633; 87635; 87641; 87798; 87804; 92523; 92610; 93005; 93017; 93306; 94640; 94660; 94760; 96365; 96366; 96367; 96372; 96374; 96375; 96376; 97110; 97116; 97161; 97166; 97530; 97535; 99291; A9500; C9113; J0282; J0456; J0696; J1650; J1815; J1940; J1956; J2060; J2543; J2785; J2920; J2930; J3370; J3480; J3490; J7030; J7050; J7060; J7070; J7512; J7608; J7614; J7626

== ENCOUNTER 2022-11-14 20:42 | Inpatient (IN) | payer OTHER, SELFPAY ==
[2022-11-14 20:43] VITALS: BP 129/51; PULSE 110; RESP 18; TEMP 36.5; O2SAT 87; BMI 18.8
--- NOTE | 2022-11-14 20:43 | W.ED.SOB ---
HPI - SOB/Dyspnea General: Chief Complaint: Shortness of Breath/Dyspnea Stated Complaint: SOB Time Seen by Provider: 11/14/22 20:42 History of Present Illness: HPI Narrative: Mr. Irving is a 77-year-old gentleman with significant past medical history of COPD, atrial fibrillation, CAD, diabetes, hypertension, heart failure, valvular heart disease presenting to the emergency department for respiratory distress. He was just discharged from the hospital today and was sent home on 2 L. He initially felt okay however subsequently developed shortness of breath. He was hypoxemic and EMS administered DuoNeb with mild improvement. They also administered steroids. Overall he feels significantly worse than at time of discharge. No other specific changes in health, exacerbating, or alleviating factors identified. Onset (ago): minute(s) Context: recent illness Severity: severe Exacerbating factors: nothing Relieving factors: nothing Known history of: COPD Review of Systems General: Reports: 10 or more systems reviewed and unremarkable except in HPI and below PFSH ED PFSH: Medical History Abdominal pain Acidosis, lactic Acute bacterial conjunctivitis of left eye Acute exacerbation of chronic obstructive airways disease Acute exacerbation of chronic obstructive pulmonary disease (COPD) Acute hyperkalemia Acute kidney injury Acute renal failure Acute respiratory failure with hypoxia NADER (acute kidney injury) Anemia Aortic stenosis Atrial fibrillation Atrial fibrillation Atrial fibrillation with RVR Bradycardia CHF exacerbation Chronic kidney disease (CKD), stage III (moderate) Chronic kidney failure Congestive heart failure (CHF) COPD (chronic obstructive pulmonary disease) COPD (chronic obstructive pulmonary disease) COPD exacerbation Coronary artery disease Dehydration Diabetes mellitus Diarrhea Digoxin overdose HFrEF (heart failure with reduced ejection fraction) HTN (hypertension) Hyperkalemia Hypomagnesemia Hyponatremia Hypoxia Ischemic cardiomyopathy Moderate aortic stenosis NSTEMI (non-ST elevated myocardial infarction) Pneumonia Pneumonia Poisoning by calcium-channel blockers Rhabdomyolysis Sepsis Suspected 2019-nCoV infection Symptomatic bradycardia Vomiting Surgical History History of mitral valve replacement with bioprosthetic valve 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 Family History Mother Stroke Denies family history of Diabetes CAD (coronary artery disease) Clotting disorder Dementia Social History Smoking and tobacco status: light tobacco smoker Quit status (tobacco): has quit using tobacco Year quit tobacco: 2017 Former quit date comment: smoked 1 pack per day x 36 years Alcohol intake: current Substance/Drug Use: never Household members: spouse Housing: House 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 Const: COMMON NORMALS: alert GENERAL APPEARANCE: cooperative and well developed HENMT: COMMON NORMALS: normocephalic and atraumatic HEAD & SCALP: normocephalic and atraumatic THROAT: posterior oropharynx normal Eye: COMMON NORMALS: conjunctivae normal CONJUNCTIVA: Yes conjunctivae normal SCLERA: sclerae normal Neck/C-Spine: COMMON NORMALS: supple GENERAL: Yes trachea midline Resp: EFFORT & INSPECTION: Yes tachypneic and Yes respiratory distress Cardio: COMMON NORMALS: regular rhythm RATE: tachycardic RHYTHM: regular rhythm GI: COMMON NORMALS: Soft to palpation PALPATION: Yes Soft to palpation and No Tenderness to palpation present (GI) PERCUSSION: normal to percussion Extremity: GENERAL: Yes normal exam except as noted and No edema Neuro: COMMON NORMALS: moves all extremities SENSORIUM/ORIENTATION: Yes alert and No Orientation impaired Psych: COMMON NORMALS: mental status grossly normal and Normal thought process present THOUGHT PROCESS: Normal thought process present Course Vital Signs: Vital signs: Vital Signs Temperature 97.9 F 11/19/22 13:01 Pulse Rate 51 L 11/19/22 13:01 Respiratory Rate 16 11/19/22 13:01 Blood Pressure 121/76 11/19/22 13:01 Pulse Oximetry 99 11/19/22 13:01 Oxygen Delivery Me thod Nasal Cannula 11/19/22 07:28 Oxygen Flow Rate 4 11/19/22 02:26 Fraction of Inspir ed Oxygen 4 11/19/22 07:28 MDM - SOB/Dyspnea Medical Decision Making 77-year-old gentleman just discharged from the hospital with history of COPD presenting with respiratory distress and generalized illness. He initially felt okay at discharge and then subsequently decompensated. Exam as above. Patient is somewhat ill in appearance though nontoxic. EKG notable for junctional rhythm, normal axis and intervals, no STEMI. Labs notable for leukocytosis, macrocytic anemia without evidence of hemorrhage on exam. ABG shows hypoxemia and respiratory compensation for respiratory status. Labs with hyponatremia and evidence of metabolic stress, creatinine is elevated. Lactic acid is elevated with improvement on repeat. Initial troponin elevated with negative delta. BNP is elevated. Viral panel is pending. Chest x-ray demonstrates bilateral infiltrates which have persisted. Given severity of illness and recent hospitalization as well as clinical exam and laboratory studies patient requires CT imaging. CT demonstrates no PE, patient continues to have bilateral airspace disease and bronchiectasis. Abdomen pelvis findings noted overall no specific additional finding to explain patient's illness. During ED course patient treated with RT treatment, broad-spectrum antibiotics, IV fluids. The results of ED evaluation were discussed with the patient including plan for admission due to requirement for level of care not available if discharged to prevent significant worsening/deterioration. Patient agreeable with plan. Discussed with hospitalist service who was agreeable to admit patient. Medical Records I reviewed the patient's medical records. Lab Data I reviewed the patient's lab results. 11/18/22 06:06 11/18/22 06:06 Labs/Radiology: Radiology Impressions Chest X-Ray 11/14/22 20:47 IMPRESSION: Persisting bilateral infiltrates consistent with pneumonitis Chest/Abdomen/Pelvis CT 11/14/22 22:23 IMPRESSION: 1. Negative for pulmonary embolus. 2. Patchy bilateral airspace infiltrates. 3. Scattered prominent mediastinal lymph nodes measuring up to 17 mm, nonspecific. 4. Sternotomy wires. 5. Cardiomegaly. 6. Coronary artery atherosclerotic calcifications. Sign trace bilateral pleural effusions. 7. Emphysematous changes. 8. Bibasilar bronchiectasis. IMPRESSION: 1. Negative for acute inflammatory process in the abdomen or pelvis. 2. Right kidney cyst, negative for follow-up advised. 3. Air in the urinary bladder may be iatrogenic, please correlate clinically. 4. Fusiform infrarenal abdominal aortic aneurysm measuring 3 cm in diameter without rupture. 5. Right kidney cyst, negative for follow-up advised. 6. Constipation. 7. Proximal superior mesenteric and bilateral renal artery atherosclerotic calcifications with suspected 70 to 80% luminal narrowing with contrast seen distally. COMMENTS: Consistent with the [employer]'s Incidental Findings Committee white paper (J Am Kyara Radiol 2018): Any incidental renal lesion less than 1 cm or classified as too small to characterize, or any incidental cystic renal lesion characterized as simple-appearing, is likely benign. No follow-up imaging is recommended for these lesions per consensus recommendations based on imaging criteria. Venous Duplex 11/15/22 01:21 IMPRESSION: 1. No evidence of deep vein thrombosis. 2. There is a hypoechoic collection in the left popliteal fossa measuring up to 4.2 cm, which may reflect a Andino's cyst, though this could be further evaluated with MRI. Laboratory Results WBC 15.7 10^3/uL (4.0-10.0) H 11/14/22 21:00 RBC 2.92 10^6/uL (4.1-5.3) L 11/14/22 21:00 Hgb 8.1 g/dL (11.7-16.6) L 11/14/22 21:00 Hct 27.6 % (42.0-52.0) L 11/14/22 21:00 MCV 94.5 fl (80-94) H 11/14/22 21:00 MCH 27.7 pg (28.0-34.0) L 11/14/22 21:00 MCHC 29.3 g/dL (30.0-36.0) L D 11/14/22 21:00 RDW 16.7 % (12.1-15.1) H 11/14/22 21:00 Plt Count 163 10^3/cmm (130-400) 11/14/22 21:00 MPV 12.8 fL (7.4-10.4) H 11/14/22 21:00 Lymph % (Auto) Not Reportable 11/14/22 21:00 [place] % (Auto) Not Reportable 11/14/22 21:00 Lymph # (Auto) Not Reportable 11/14/22 21:00 [place] # (Auto) Not Reportable 11/14/22 21:00 Total Counted 100 (0-100) 11/14/22 21:00 Atypical Lymphs % 0.0 % (0-5) 11/14/22 21:00 Absolute Neutrophils 12.1 10^3/cmm (1.4-6.5) H 11/14/22 21:00 Segmented Neutrophils 74 % 11/14/22 21:00 Abs Segm Neuts (Man) 11.6 10/cmm (1.6-7.1) H 11/14/22 21:00 Band Neutrophils 3.0 % 11/14/22 21:00 Abs Band Neuts (Man) 0.5 10^3/cmm (0.0-1.2) 11/14/22 21:00 Absolute Lymphocytes 0.3 10^3/cmm (1.2-3.4) L 11/14/22 21:00 Lymphocytes (Manual) 2 % 11/14/22 21:00 Monocytes (Manual) 16.0 % 11/14/22 21:00 Absolute Monocytes 2.5 10^3/cmm (0.1-0.6) H 11/14/22 21:00 Eosinophils (Manual) 0 % 11/14/22 21:00 Absolute Eosinophils 0.0 10^3/cmm (0.0-0.7) 11/14/22 21:00 Basophils (Manual) 0.0 % 11/14/22 21:00 Absolute Basophils 0.0 10^3/cmm (0.0-0.2) 11/14/22 21:00 Metamyelocytes 5.0 % 11/14/22 21:00 Platelet Estimate Normal (Normal) 11/14/22 21:00 Polychromasia Trace 11/14/22 21:00 Anisocytosis 2+ H 11/14/22 21:00 Macrocytosis 2+ H 11/14/22 21:00 Bulmaro Cells 1+ H 11/14/22 21:00 PT 14.90 SECONDS (12.1-14.9) 11/14/22 21:00 INR 1.13 (0.8-1.2) 11/14/22 21:00 APTT 30.6 SECONDS (23.9-36.7) 11/14/22 21:00 Specimen Type Arterial 11/14/22 20:47 Sample Site Radial, right 11/14/22 20:47 ABG pH 7.41 (7.35-7.45) 11/14/22 20:47 ABG pCO2 28.1 mmHg (35-45) L 11/14/22 20:47 ABG pO2 59.3 mmHg (80.0-100.0) L 11/14/22 20:47 ABG HCO3 17.9 mmol/L (22-26) L 11/14/22 20:47 ABG Base Excess -5.9 mmol/L (-2.0-2.0) L 11/14/22 20:47 Lei Test Pos 11/14/22 20:47 Hematocrit 24.1 % (42-52) L 11/14/22 20:47 O2 Delivery Device Nc 11/14/22 20:47 O2 Liters/Min 3.5 % 11/14/22 20:47 Hearing Care Practitioner ID oscar 11/14/22 20:47 Sodium 124 mmol/L (136-145) L D 11/14/22 21:00 Potassium 4.4 mmol/L (3.5-5.1) 11/14/22 21:00 Chloride 92 mmol/L (98-107) L 11/14/22 21:00 Carbon Dioxide 16 mmol/L (22-29) L 11/14/22 21:00 Anion Gap 20.4 (5-19) H 11/14/22 21:00 BUN 26 mg/dL (8-23) H 11/14/22 21:00 Creatinine 1.4 mg/dL (0.7-1.2) H 11/14/22 21:00 GFR Calculation Not Reportable 11/14/22 21:00 Glucose 434 mg/dL (65-115) H 11/14/22 21:00 Calculated Osmolality 281 mOsm/kg (285-295) L 11/14/22 21:00 Lactic Acid 4.1 mmol/L (0.5-2.2) H* 11/14/22 21:00 Calcium 8.5 mg/dL (8.5-10.5) 11/14/22 21:00 Total Bilirubin 0.7 mg/dL (0.15-1.2) 11/14/22 21:00 AST 27 U/L (0-40) 11/14/22 21:00 ALT 20 U/L (0-41) 11/14/22 21:00 Alkaline Phosphatase 105 U/L (40-130) 11/14/22 21:00 Troponin T Baseline 335 ng/L (0-15) H* 11/14/22 21:00 Troponin T 120 Minute 313.2 ng/L (0-15) H 11/14/22 23:15 Delta Troponin T -21.8 ABS# (0-10) L 11/14/22 23:15 C-Reactive Protein 82.8 mg/L (0.0-4.9) H 11/14/22 21:00 NT-Pro-B Natriuret Pep 5019 pg/mL (0-450) H 11/14/22 21:00 Total Protein 5.7 g/dL (6.6-8.7) L 11/14/22 21:00 Albumin 3.5 g/dL (3.5-5.2) 11/14/22 21:00 Globulin 2.2 g/dL (1.3-4.6) 11/14/22 21:00 Procalcitonin 0.17 ng/mL (0-0.5) 11/14/22 21:00 Nasal Influ A H1 2009 PCR Not detected (NOT DETECT) 11/14/22 22:18 Serum Ketones Negative (Negative) 11/14/22 21:00 Adenovirus (PCR) Not detected (NOT DETECT) 11/14/22 22:18 C. pneumoniae DNA (PCR) Not detected (NOT DETECT) 11/14/22 22:18 Coronavirus 229E (PCR) Not detected (NOT DETECT) 11/14/22 22:18 Human Metapneumovir PCR Not detected (NOT DETECT) 11/14/22 22:18 Influenza A (H1) PCR Not detected (NOT DETECT) 11/14/22 22:18 Influenza A (H3) PCR Not detected (NOT DETECT) 11/14/22 22:18 Influenza Type A (PCR) Not detected (NOT DETECT) 11/14/22 22:18 Influenza Type B (PCR) Not detected (NOT DETECT) 11/14/22 22:18 M. pneumoniae (PCR) Not detected (NOT DETECT) 11/14/22 22:18 Parainfluenza 1 (PCR) Not detected (NOT DETECT) 11/14/22 22:18 Parainfluenza 2 (PCR) Not detected (NOT DETECT) 11/14/22 22:18 Parainfluenza 3 (PCR) Not detected (NOT DETECT) 11/14/22 22:18 Parainfluenza 4 (PCR) Not detected (NOT DETECT) 11/14/22 22:18 RSV Type A (PCR) Not detected (NOT DETECT) 11/14/22 22:18 RSV Type B (PCR) Not detected (NOT DETECT) 11/14/22 22:18 Entero/Rhino (PCR) Not detected (NOT DETECT) 11/14/22 22:18 SARS-CoV-2 (PCR) Not detected (NOT DETECT) 11/14/22 22:18 Critical Care Time Critical Care Time: Critical Care Time: Yes Total Critical Care Time: 35 Attestation: Due to a high probability of clinically significant, possibly life threatening deterioration, the patient required my highest level of attention and preparedness to intervene emergently and I personally spent this critical care time directly and personally managing the patient. This critical care time included obtaining a history; examining the patient; pulse oximetry; ordering and review of laboratory and imaging studies; arranging urgent treatment with development of a management plan; evaluation of patient's response to treatment; frequent reassessment; and, discussions with other providers as applicable. It was exclusive of separately billable procedures. Primary system involved is respiratory and infectious disease. Discharge Plan Discharge Patient Disposition: Admitted As Inpatient Admit Provider: Donnie Harrell Clinical Impression: Pneumonia, COPD exacerbation, Dehydration, Acidosis, lactic Condition: Stable Coding Level of Care Code ED Manager Style for Deyanira Pinon
--- NOTE | 2022-11-14 20:47 | XRR_ITS ---
PROCEDURE INFORMATION: Exam: XR Chest Exam date and time: 11/14/2022 8:59 PM Age: 77 years old Clinical indication: Shortness of breath; Additional info: SOB TECHNIQUE: Imaging protocol: Radiologic exam of the chest. Views: 1 view. COMPARISON: CT chest con [id number] 11/09/2022 9:50 PM FINDINGS: Tubes, catheters and devices: Chronic mediastinal postop changes including a prosthetic mitral valve. Lungs: There persisting moderately dense peripheral hazy opacities in both lower lobes and portions of the upper lobes. The lung apices are spared. Pleural spaces: Trace right effusion. No pneumothorax. Heart/Mediastinum: Unremarkable. No cardiomegaly. Bones/joints: Unremarkable. XR/XR chest 1V portable [id number] IMPRESSION: Persisting bilateral infiltrates consistent with pneumonitis
[2022-11-14 21:08] LABS: ABG PCO2 28.1 mmHg (35-45); ABG PH Result 7.41 (7.35-7.45); Arterial Blood Gas Hematocrit 24.1 % (42-52); Base Excess ABG -5.9 mmol/L (-2.0-2.0); Blood Gas Allen Test Pos; Blood Gas LPM 3.5 %; Blood Gas Sample Site Radial, right; Blood Gas Sample Type Arterial; HCO3 ABG 17.9 mmol/L (22-26); Oxygen Device NC; PO2 ABG 59.3 mmHg (80.0-100.0)
--- NOTE | 2022-11-14 21:12 | ECG_ITS ---
[facility] Test Date: 2022-11-14 Pat Name: Anuj Irving Department: Room: Gender: Male Jewel Gauger: : 1945 Requested By: Cornell Hernandez Order Number: [id number] Dolly MD: Himanshu Chavarria M.D. Measurements Intervals [place] Rate: 80 P: -71 NV: 106 QRS: 87 QRSD: 124 T: 91 QT: 405 QTc: 468 Interpretive Statements JUNCTIONAL RHYTHM ANTEROSEPTAL MYOCARDIAL INFARCTION , OF INDETERMINATE AGE [40+ ms Q WAVE IN V1-V4] Compared to ECG 11/13/2022 18:39:53 Junctional rhythm now present Atrial fibrillation no longer present Myocardial infarct finding still present Electronically Signed On 11-15-2022 9:43:07 CDT by Himanshu Chavarria M.D. [id number]
[2022-11-14 21:18] VITALS: BP 121/52; PULSE 80; RESP 16; O2SAT 91
[2022-11-14 21:29] VITALS: PULSE 76; RESP 26; O2SAT 94
[2022-11-14] MEDS: albuterol 2.5 mg/3 mL Neb INHALATION (21:29)
[2022-11-14 21:37] LABS: Hematocrit 27.6 % (42.0-52.0); Hemoglobin 8.1 g/dL (11.7-16.6); Mean Corpuscular HGB Conc 29.3 g/dL (30.0-36.0); Mean Corpuscular Hemoglobin 27.7 pg (28.0-34.0); Mean Corpuscular Volume 94.5 fl (80-94); Mean Platelet Volume 12.8 fL (7.4-10.4); Platelet Count 163 10^3/cmm (130-400); Red Blood Count 2.92 10^6/uL (4.1-5.3); Red Cell Distribution Width 16.7 % (12.1-15.1); White Blood Count 15.7 10^3/uL (4.0-10.0)
[2022-11-14 21:48] LABS: INR 1.13 (0.8-1.2)
[2022-11-14 21:49] LABS: Partial Thromboplastin Time 30.6 SECONDS (23.9-36.7)
[2022-11-14 21:50] LABS: Slide Review Slide Review Perform
[2022-11-14 21:54] LABS: Absolute Segmented Neutrophil 11.6 10/cmm (1.6-7.1); Band Neutrophils Absolute 0.5 10^3/cmm (0.0-1.2); Eosinophils 0 %; Lymphocytes 2 %; Lymphocytes Absolute 0.3 10^3/cmm (1.2-3.4); Monocytes Absolute 2.5 10^3/cmm (0.1-0.6); Total Cells Counted 100 (0-100)
[2022-11-14 21:55] LABS: Macrocytosis 2+
[2022-11-14 21:56] LABS: Absolute Neutrophil 12.1 10^3/cmm (1.4-6.5); Platelet Estimate Normal (Normal); Polychromasia Trace
[2022-11-14 21:58] LABS: Anisocytosis 2+
[2022-11-14 22:00] LABS: Burr Cells 1+
[2022-11-14 22:01] LABS: Segmented Neutrophils 74 %
[2022-11-14 22:08] LABS: NT Pro B Type Natriuretic Pept 5019 pg/mL (0-450); Procalcitonin 0.17 ng/mL (0-0.5)
[2022-11-14 22:10] LABS: Lactic Sepsis W/Reflex 4.1 mmol/L (0.5-2.2)
[2022-11-14 22:11] LABS: Troponin(5th) Baseline 335 ng/L (0-15)
[2022-11-14 22:14] VITALS: BP 131/52; PULSE 70; RESP 16; O2SAT 95
[2022-11-14 22:15] VITALS: BP 128/51; PULSE 71; RESP 16; O2SAT 95
[2022-11-14 22:19] LABS: Alanine Aminotransferase 20 U/L (0-41); Albumin Level 3.5 g/dL (3.5-5.2); Alkaline Phosphatase 105 U/L (40-130); Anion Gap 20.4 (5-19); Aspartate Amino Transferase 27 U/L (0-40); Blood Urea Nitrogen 26 mg/dL (8-23); C Reactive Protein 82.8 mg/L (0.0-4.9); Calcium 8.5 mg/dL (8.5-10.5); Carbon Dioxide 16 mmol/L (22-29); Chloride 92 mmol/L (98-107); Globulin 2.2 g/dL (1.3-4.6); Glucose 434 mg/dL (65-115); Osmolality Calculated 281 mOsm/kg (285-295); Potassium 4.4 mmol/L (3.5-5.1); Sodium 124 mmol/L (136-145); Total Bilirubin 0.7 mg/dL (0.15-1.2); Total Protein 5.7 g/dL (6.6-8.7)
--- NOTE | 2022-11-14 22:23 | CTR_ITS ---
PROCEDURE INFORMATION: Exam: CTA Chest With Contrast Exam date and time: 11/14/2022 10:36 PM Age: 77 years old Clinical indication: Other: SOB; Shortness of breath; Prior surgery; Surgery type: Mitral valve; Cabg x 3; Additional info: SOB, recent hospitalization, prolonged immobilization, sirs TECHNIQUE: Imaging protocol: Computed tomographic angiography of the chest with contrast. 3D rendering (Not supervised by radiologist): MIP and/or 3D reconstructed images were created by the technologist. Radiation optimization: All CT scans at this facility use at least one of these dose optimization techniques: automated exposure control; mA and/or kV adjustment per patient size (includes targeted exams where dose is matched to clinical indication); or iterative reconstruction. Contrast material: OMNI 350; Contrast volume: 80 ml; Contrast route: INTRAVENOUS (IV); REPORTING DATA: Count of CT and Cardiac NM exams in prior 12 months: This patient has received 8 known CTs and 0 known cardiac nuclear medicine studies in the 12 months prior to the current study. COMPARISON: CT chest con [id number] 11/09/2022 9:50 PM RADIATION DOSE METRICS: Total DLP (mGy-cm): 676.56 FINDINGS: Pulmonary arteries: Normal. No pulmonary emboli. Aorta: Unremarkable. No aortic aneurysm. No aortic dissection. Lungs: Patchy bilateral airspace infiltrates. Emphysematous changes. Bibasilar bronchiectasis. Pleural spaces: See Coronary arteries finding. Heart: Cardiomegaly. Coronary arteries: Coronary artery atherosclerotic calcifications. Sign trace bilateral pleural effusions. Lymph nodes: Scattered prominent mediastinal lymph nodes measuring up to 17 mm, nonspecific. Bones/joints: Sternotomy wires. Soft tissues: Unremarkable. PROCEDURE INFORMATION: Exam: CT Abdomen And Pelvis With Contrast Exam date and time: 11/14/2022 10:36 PM Age: 77 years old Clinical indication: Other: SOB; Shortness of breath; Prior surgery; Surgery type: Mitral valve; Cabg x 3; Additional info: SOB, recent hospitalization, prolonged immobilization, sirs TECHNIQUE: Imaging protocol: Computed tomography of the abdomen and pelvis with contrast. Radiation optimization: All CT scans at this facility use at least one of these dose optimization techniques: automated exposure control; mA and/or kV adjustment per patient size (includes targeted exams where dose is matched to clinical indication); or iterative reconstruction. Contrast material: OMNI 350; Contrast volume: 80 ml; Contrast route: INTRAVENOUS (IV); REPORTING DATA: Count of CT and Cardiac NM exams in prior 12 months: This patient has received 8 known CTs and 0 known cardiac nuclear medicine studies in the 12 months prior to the current study. COMPARISON: [place] [id number] 09/10/2022 8:39 PM RADIATION DOSE METRICS: Total DLP (mGy-cm): 676.56 FINDINGS: Liver: Normal. No mass. Gallbladder and bile ducts: Normal. No calcified stones. No ductal dilation. Pancreas: Normal. No ductal dilation. Spleen: Normal. No splenomegaly. Adrenal glands: Normal. No mass. Kidneys and ureters: Right kidney cyst, negative for follow-up advised. Right kidney cyst, negative for follow-up advised. Stomach and bowel: Constipation. Appendix: No evidence of appendicitis. Intraperitoneal space: Unremarkable. No free air. No significant fluid collection. Vasculature: Fusiform infrarenal abdominal aortic aneurysm measuring 3 cm in diameter without rupture. Proximal superior mesenteric and bilateral renal artery atherosclerotic calcifications with suspected 70 to 80% luminal narrowing with contrast seen distally. Lymph nodes: Unremarkable. No enlarged lymph nodes. Urinary bladder: Air in the urinary bladder may be iatrogenic, please correlate clinically. Reproductive: Unremarkable as visualized. Bones/joints: Unremarkable. No acute fracture. Soft tissues: Unremarkable. CT/CT angio chest w abd pel w con IMPRESSION: 1. Negative for pulmonary embolus. 2. Patchy bilateral airspace infiltrates. 3. Scattered prominent mediastinal lymph nodes measuring up to 17 mm, nonspecific. 4. Sternotomy wires. 5. Cardiomegaly. 6. Coronary artery atherosclerotic calcifications. Sign trace bilateral pleural effusions. 7. Emphysematous changes. 8. Bibasilar bronchiectasis. IMPRESSION: 1. Negative for acute inflammatory process in the abdomen or pelvis. 2. Right kidney cyst, negative for follow-up advised. 3. Air in the urinary bladder may be iatrogenic, please correlate clinically. 4. Fusiform infrarenal abdominal aortic aneurysm measuring 3 cm in diameter without rupture. 5. Right kidney cyst, negative for follow-up advised. 6. Constipation. 7. Proximal superior mesenteric and bilateral renal artery atherosclerotic calcifications with suspected 70 to 80% luminal narrowing with contrast seen distally. COMMENTS: Consistent with the [employer]'s Incidental Findings Committee white paper (J Am Kyara Radiol 2018): Any incidental renal lesion less than 1 cm or classified as too small to characterize, or any incidental cystic renal lesion characterized as simple-appearing, is likely benign. No follow-up imaging is recommended for these lesions per consensus recommendations based on imaging criteria.
[2022-11-14] MEDS: piperacillin-tazobactam 3.375 GM in sodium chloride 0.9% (plus) 50 ML IV (22:24)
[2022-11-14] MEDS: iohexol 350 mg/mL 500 mL Btl (per mL) IV (22:40)
--- NOTE | 2022-11-14 22:56 | ECG_ITS ---
[facility] Test Date: 2022-11-14 Pat Name: Anuj Irving Department: Room: Gender: Male Title Insurance Examiner: : 1945 Requested By: Cornell Hernandez Order Number: [id number] Dolly MD: Himanshu Chavarria M.D. Measurements Intervals [place] Rate: 80 P: 1 OR: 151 QRS: -33 QRSD: 126 T: -16 QT: 416 QTc: 480 Interpretive Statements SINUS RHYTHM WITH SINUS ARRHYTHMIA LEFT AXIS DEVIATION [QRS AXIS < -30] ANTEROSEPTAL MYOCARDIAL INFARCTION , OF INDETERMINATE AGE [40+ ms Q WAVE IN V1-V4] Compared to ECG 11/14/2022 21:12:55 Left-axis deviation now present Junctional rhythm no longer present Myocardial infarct finding still present Electronically Signed On 11-15-2022 9:48:14 CDT by Himanshu Chavarria M.D. [id number]
[2022-11-14] MEDS: vancomycin 1,250 MG/250 ML PIGGYBACK 250 MG IV (23:07)
[2022-11-14 23:27] LABS: Reflex Lactate Order REFLEX LACTIC ORDERD
[2022-11-14 23:47] LABS: Troponin 5 2HR Delta -21.8 ABS# (0-10)
[2022-11-14 23:48] LABS: Troponin 5 2HR 313.2 ng/L (0-15)
[2022-11-14 23:57] LABS: Ketone (Acetest) Serum Negative (Negative)
[2022-11-15] VITALS (34 sets, daily range): BP systolic 102–140; BP diastolic 46–77; PULSE 66–101; RESP 11–32; TEMP 36.4–36.8; O2SAT 87–98; BMI 24.3
[2022-11-15 00:05] LABS: Adenovirus Not Detected (NOT DETECT); Chlamydia Pneumoniae Not Detected (NOT DETECT); Coronavirus 229E,HKU1,NL63,OC4 Not Detected (NOT DETECT); Human Metapneumovirus Not Detected (NOT DETECT); Human Rhinovirus/Enterovirus Not Detected (NOT DETECT); Influenza A Not Detected (NOT DETECT); Influenza A H1 Not Detected (NOT DETECT); Influenza A H1-2009 Not Detected (NOT DETECT); Influenza A H3 Not Detected (NOT DETECT); Influenza B Not Detected (NOT DETECT); Mycoplasma Pneumoniae Not Detected (NOT DETECT); Parainfluenza Virus Type 1 Not Detected (NOT DETECT); Parainfluenza Virus Type 2 Not Detected (NOT DETECT); Parainfluenza Virus Type 3 Not Detected (NOT DETECT); Parainfluenza Virus Type 4 Not Detected (NOT DETECT); Respiratory Syncytial Virus A Not Detected (NOT DETECT); Respiratory Syncytial Virus B Not Detected (NOT DETECT); SARS-COV-2 Not Detected (NOT DETECT)
[2022-11-15] MEDS: sodium chloride 0.9% 500 ML 999 ML IV (00:16)
[2022-11-15 00:17] LABS: Lactic Acid level (Lactate) 2.1 mmol/L (0.5-2.2)
--- NOTE | 2022-11-15 01:00 | P.HP_ITS ---
Providers/Chief Complaint Admitting Physician: Donnie Harrell MD Primary Care Provider: Paola Moore MD Chief Complaint: SOB History of Present Illness Anuj Irving is a 77 year old male with a past medical history of COPD, atrial fibrillation, CAD, type 2 diabetes mellitus, hypertension, ischemic cardiomyopathy, heart failure with reduced ejection fraction, moderate aortic stenosis, was admitted to [facility] for acute hypoxic respiratory failure, also had A-fib with RVR, also had pneumonia, with bilateral infiltrates, sputum cultures growing staph, had NSTEMI, DKA, anemia, CKD stage III. Who presents to [facility] as he just got home from the hospital, he tells me he got in his chair, he was with his cat in his recliner, when he suddenly felt short of breath, he had trouble catching his air, no chest pain, no palpitations, no lightheadedness, dizziness, no calf pain, no calf swelling, no hemoptysis so he has come back to [facility] for evaluation, EMS arrived found that he was hypoxic on his 2 L, in mild respiratory distress, his oxygen was increased to 3 to 4 L, in the emergency room, he received several breathing treatments, currently resting comfortably he tells me he feels a lot better Review of Systems Const: Denies: fever(s) Card: Denies: chest pain Resp: Reports: dyspnea GI: Denies: abdominal pain : Denies: flank pain Neuro: Denies: headache(s) Medications/Allergies Home Medications Medication Instructions Recorded Confirmed Last Taken Type cholecalciferol (vitamin D3) 25 25 mcg PO DAILY 07/12/21 11/07/22 09/09/22 History mcg (1,000 unit) capsule (Vitamin D3) docusate sodium 100 mg capsule 100 - 200 mg PO DAILY PRN 07/12/21 11/07/22 06/20/22 History Constipation omeprazole 40 mg capsule,delayed 40 mg PO BID 07/12/21 11/07/22 09/10/22 History release carboxymethylcellulose sodium 1 % 1 drp ophthalmic (eye) BID PRN Dry 11/26/21 11/07/22 Unknown History eye liquid gel drops (Refresh Eye(S) Liquigel) ferrous gluconate 324 mg (38 mg 324 mg PO BID 11/26/21 11/07/22 09/10/22 History iron) tablet fluticasone 100 mcg-salmeterol 50 1 inh inhalation BID 11/26/21 11/07/22 09/09/22 History mcg/dose blistr powdr for inhalation (Advair Diskus) furosemide 40 mg tablet (Lasix) 40 mg PO QAM 11/26/21 11/07/22 09/10/22 History ipratropium 20 mcg-albuterol 100 1 puff inhalation Q6H PRN 11/26/21 11/07/22 Unknown History mcg/actuation mist for inhalation Shortness Of Breath albuterol sulfate 90 mcg/actuation 2 inh inhalation Q4H PRN shortness 08/16/22 11/07/22 Unknown Rx aerosol inhaler of breath or wheezing #8.5 grams apixaban 5 mg tablet (Eliquis) 2.5 mg PO BID #30 tabs 09/15/22 11/07/22 09/10/22 Rx ipratropium 0.5 mg-albuterol 3 mg 3 ml inhalation Q4H PRN shortness 11/05/22 11/07/22 Unknown Rx (2.5 mg base)/3 mL nebulization of breath or wheezing #90 mL soln atorvastatin 80 mg tablet 80 mg PO QPM 11/07/22 11/07/22 Unknown History bacitracin-polymyxin B 500 1 applic ophthalmic (eye) QID 11/07/22 11/07/22 Unknown History unit-10,000 unit/gram eye ointment glimepiride 4 mg tablet 2 mg PO DAILY 11/07/22 11/07/22 Unknown History insulin glargine 100 unit/mL (3 10 unit SUBCUT BID 11/07/22 11/07/22 Unknown History mL) subcutaneous pen (Lantus Solostar U-100 Insulin) rjoedyha-ivp-jxobz acid 300 1 tab PO DAILY 11/07/22 11/07/22 Unknown History mcg-lycopene 600 mcg-lutein 300 mcg tablet (Centrum Silver Men) amiodarone 200 mg tablet (Pacerone) 400 mg PO BID 30 days #120 tabs 11/14/22 Unknown Rx amoxicillin 875 mg-potassium 1 tab PO BID 4 days #8 tabs 11/14/22 Unknown Rx clavulanate 125 mg tablet aspirin 81 mg tablet,delayed 81 mg PO DAILY #0 tabs 11/14/22 Unknown Rx release metoprolol tartrate 25 mg tablet 12.5 mg PO Q12H 30 days #30 tabs 11/14/22 Unknown Rx prednisone 5 mg tablets in a dose 5 mg PO BID 6 days #12 ea 11/14/22 Unknown Rx pack Allergies Allergy/AdvReac Type Severity Reaction Status Date / Time No Known Allergies Allergy Verified 11/05/22 15:05 PFSH Acute PFSH: Medical History (Updated 11/15/22 @ 01:09 by Donnie Harrell MD) Abdominal pain Acute bacterial conjunctivitis of left eye Acute exacerbation of chronic obstructive pulmonary disease (COPD) Acute hyperkalemia Acute kidney injury Acute renal failure NADER (acute kidney injury) Anemia Aortic stenosis Atrial fibrillation Bradycardia Chronic kidney failure Congestive heart failure (CHF) COPD (chronic obstructive pulmonary disease) COPD (chronic obstructive pulmonary disease) Coronary artery disease Diabetes mellitus Diarrhea Digoxin overdose HFrEF (heart failure with reduced ejection fraction) HTN (hypertension) Hyperkalemia Hypomagnesemia Hyponatremia Hypoxia Ischemic cardiomyopathy Moderate aortic stenosis NSTEMI (non-ST elevated myocardial infarction) Pneumonia Poisoning by calcium-channel blockers Rhabdomyolysis Sepsis Suspected 2019-nCoV infection Symptomatic bradycardia Vomiting Surgical History History of mitral valve replacement with bioprosthetic valve 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 Family History Mother Stroke Denies family history of Diabetes CAD (coronary artery disease) Clotting disorder Dementia Social History Smoking and tobacco status: light tobacco smoker Quit status (tobacco): has quit using tobacco Year quit tobacco: 2016 Former quit date comment: smoked 1 pack per day x 36 years Alcohol intake: current Substance/Drug Use: never Household members: spouse Housing: House 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 Vital Signs Temp 97.7 F 11/14/22 20:43 Pulse 70 11/15/22 00:43 Resp 16 11/15/22 00:43 BP 134/69 11/15/22 00:43 Pulse Ox 91 11/15/22 00:43 O2 Del Method Nasal Cannula 04/22/23 21:29 O2 Flow Rate 3.5 11/14/22 21:29 11/14/22 11/14/22 11/15/22 14:59 22:59 06:59 Intake Total 300 / 300 Balance 300 / 300 Weight last 48 hrs Weight 54.431 kg Physical Exam Const: COMMON NORMALS: no acute distress and patient oriented x3 HENMT: COMMON NORMALS: normocephalic HEAD & SCALP: normocephalic Eye: COMMON NORMALS: Equal, round and reactive pupils present and EOMs intact bilaterally Neck/C-Spine: COMMON NORMALS: no JVD Lymph: LYMPHATIC: no lymphadenopathy noted Resp: COMMON NORMALS: normal respiratory effort, No retractions and No use of accessory muscles AUSCULTATION: crackles and wheezes Cardio: COMMON NORMALS: regular rate, regular rhythm, S1 normal heart sound present and S2 normal heart sound present RATE: regular rate RHYTHM: regular rhythm HEART SOUNDS: S1 normal heart sound present and S2 normal heart sound present GI: COMMON NORMALS: Normal to inspection, nondistended, normoactive bowel sounds present, Soft to palpation and non-tender Extremity: NARRATIVE EXTREMITY EXAM: 1+ pitting edema bilateral extremity Neuro: COMMON NORMALS: patient oriented x3, CN's II-XII intact bilaterally, moves all extremities and no focal motor deficits Psych: COMMON NORMALS: mental status grossly normal Data 11/14/22 21:00 11/14/22 21:00 Micro: Microbiology 11/14/22 21:23 Blood Culture - Preliminary Blood SPECIMEN COLLECTED 11/14/22 21:15 Blood Culture - Preliminary Blood SPECIMEN COLLECTED A&P Assessment and plan (1) Acute respiratory failure with hypoxia: (2) HTN (hypertension): (3) Acidosis, lactic: (4) Chronic kidney disease (CKD), stage III (moderate): (5) Pneumonia: (6) COPD (chronic obstructive pulmonary disease): Qualifiers: COPD type: unspecified COPD Qualified Code(s): J44.9 - Chronic obstructive pulmonary disease, unspecified (7) CHF exacerbation: (8) Diabetes mellitus: (9) Sepsis: Plan Acute hypoxic respiratory failure -CT angiogram negative for pulmonary embolism -Does show bilateral infiltrates, recent history of staph pneumonia on Augmentin -No history of aspiration -Does have pitting edema crackles on exam -Etiology could be acute flash pulm edema versus aspiration event versus worsening of pneumonia Plan -Admit to ICU -Monitor respiratory status closely -Aspiration precautions -Clear liquids until speech therapy eval -Lasix 60 mg once followed by 40 IV every 12 hours -Broaden antibiotic coverage to vancomycin and cefepime -Full code -Lovenox for DVT prophylaxis Pneumonia -As above aspiration versus worsening of underlying pneumonia -Sputum cultures, blood cultures 's CHF exacerbation, systolic, as above Non-ST elevation NV -First EKG shows junctional rhythm, troponin 366, repeat EKG no acute ST-T wave changes, troponin trending downwards -During his last hospitalization he can lie flat for consideration of angio and we might have to consider it during this hospitalization -Serial EKGs, serial troponins, telemetry monitoring History of anemia -Monitor hemoglobin -Eliquis was held on hospital discharge will resume monitor hemoglobin closely COPD does not seem acute in exacerbation monitor CKD stage III monitor Hyperglycemia, insulin sliding scale, Lantus Pseudohyponatremia secondary hyperglycemia Worsening leukocytosis as above Lactic acidosis, likely multifactorial from pulmonary edema, acute flash pulm edema, pneumonia, aspiration event, will monitor Sepsis, secondary to pneumonia with evidence of lactic acidosis, elevated white count, source of infection Attestations Medical Necessity Statement*: Patient requires hospitalization inpatient, greater than 2 midnights, for acute hypoxic respiratory failure, acute flash pulmonary edema, pneumonia, CHF, lactic acidosis Coding Level of Care Code 21807 Diagnoses Acute respiratory failure with hypoxia J96.01 HTN (hypertension) I10 Acidosis, lactic E87.20 Chronic kidney disease (CKD), stage III (moderate) N18.30 Pneumonia J18.9 COPD (chronic obstructive pulmonary disease) J44.9 COPD type: unspecified COPD CHF exacerbation I50.9 Diabetes mellitus E11.9 Sepsis A41.9
--- NOTE | 2022-11-15 01:21 | USR_ITS ---
PROCEDURE INFORMATION: Exam: US Duplex Lower Extremity Veins, Bilateral Exam date and time: 11/15/2022 2:36 AM Age: 77 years old Clinical indication: Edema, localized; Lower extremity, bilateral; Additional info: Dvt TECHNIQUE: Imaging protocol: Real-time duplex ultrasound of the bilateral extremities with 2-D doherty scale, color Doppler flow and spectral waveform analysis including responses to compression and other maneuvers (when performed) with image documentation. Complete exam focused on the lower extremity veins. COMPARISON: US renal BI* [id number] 09/11/2022 8:21 AM FINDINGS: Right deep veins: Unremarkable. The common femoral, femoral, proximal profunda femoral and popliteal veins are patent without thrombus. Normal Doppler waveforms. Normal compressibility and/or augmentation response. Right superficial veins: Saphenofemoral junction is patent without thrombus. Left deep veins: Unremarkable. The common femoral, femoral, proximal profunda femoral and popliteal veins are patent without thrombus. Normal Doppler waveforms. Normal compressibility and/or augmentation response. Left superficial veins: Saphenofemoral junction is patent without thrombus. Soft tissues: There is a hypoechoic collection in the left popliteal fossa measuring up to 4.2 cm. US/[place] [id number] IMPRESSION: 1. No evidence of deep vein thrombosis. 2. There is a hypoechoic collection in the left popliteal fossa measuring up to 4.2 cm, which may reflect a Andino's cyst, though this could be further evaluated with MRI.
[2022-11-15] MEDS: metoprolol tartrate 25 mg Tablet 12.5 MG PO ×2 (01:56→12:55)
[2022-11-15] MEDS: pantoprazole 40 mg SDV IVP (02:01)
[2022-11-15] MEDS: FUROsemide 10 mg/mL SDV 4mL 40 MG IVP ×2 (02:02→12:57)
--- NOTE | 2022-11-15 02:17 | PC.PHAR ---
Pharmacokinetic dosing service Date: 11/15/22 Time: 216 Objective: Patient: Anuj Irving Floor: ICU-6 Age: 77 yo Serum creatinine: 1.4 mg/dL Height: 67.0 Inches Weight (kg): 54.431 Diagnosis: Relevant medical/social history: Cultures and sensitivities: Other labs: Assessment: IBW (kg): 66.10 Dosing wt(kg): 54.431 Estimated Creatinine clearance (ml/min): 33.5 CRCL method: Cockcroft and Gault using ibw(default). Drug selected: Vancomycin Loading dose (mg): 0 Vd (liters): 49.0 (factor used: 0.9 L/kg) Richard (hr-1): 0.032 Half life (hrs): 21.66 Recommended dose: 1000 mg Interval: 24 hrs Infusion time (hrs): 1.5 Predicted peak (mcg/mL): 37.2 Predicted trough (mcg/mL): 18.11 Total body weight is being used for vancomycin dosing. Renal function is stable [ ] /unstable [ ] Recommendations: Give Vancomycin 1000 mg q 24 hrs with an expected Cpeak of 37.2 mcg/ml and an expected Ctrough of 18.11 mcg/ml Renal dosing of other antibiotics (review renal dosing of other medications and list guidelines here): Thank you for the consult, will continue to follow. Signature: Randi Leon [facility]
[2022-11-15 03:01] LABS: Urine Appearance Clear (CLEAR); Urine Color Yellow (Yellow); pH Urine 5 (5-7)
[2022-11-15 03:02] LABS: Add Urine Microscopic? YES; Bilirubin Urine Neg (Negative); Blood Urine 3+ (Negative); Glucose Urine UA 4+ (Normal); Ketones Urine 1+ (Negative); Leukocyte Esterase Urine Negative (Negative); Nitrate Urine Negative (Negative); Protein Urine Neg (Negative); Specific Gravity, Urine 1.015 (1.005-1.030); Urobilinogen Urine Norm (Negative)
[2022-11-15 03:03] LABS: Bacteria Urine TRACE /hpf; Squamous Epithelial Cell Urine 0-4 /hpf (0-5); WBC Urine 0-4 /hpf (0-5)
[2022-11-15 03:04] LABS: RBC Urine 25-40 /hpf (0-2)
[2022-11-15 03:05] LABS: Add Urine Culture? Yes
--- NOTE | 2022-11-15 03:18 | ECG_ITS ---
[facility] Test Date: 2022-11-15 Pat Name: Anuj Irving Department: Room: 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 Measurements Intervals [place] Rate: 64 P: 32 MD: 162 QRS: 65 QRSD: 115 T: 93 QT: 452 QTc: 470 Interpretive Statements SINUS RHYTHM WITH SINUS ARRHYTHMIA ANTEROSEPTAL MYOCARDIAL INFARCTION , OF INDETERMINATE AGE [40+ ms Q WAVE IN V1-V4] Compared to ECG 11/14/2022 22:56:00 Left-axis deviation no longer present Myocardial infarct finding still present Electronically Signed On 11-15-2022 9:48:34 CDT by Himanshu Chavarria M.D. [id number]
--- NOTE | 2022-11-15 03:20 | PC.NURSE ---
Admission Note: Pt arrived to ICU 6 @0059 via strecher from ER. Continuos cardiac monitoring initiated. Blanchable redness noted on sacrum.
[2022-11-15 05:08] LABS: Basophils % 0.1 %; Hematocrit 24.3 % (42.0-52.0); Hemoglobin 7.1 g/dL (11.7-16.6); Lymphocytes # 0.3 10^3/uL (0.8-4.8); Lymphocytes % 2.4 %; Mean Corpuscular HGB Conc 29.2 g/dL (30.0-36.0); Mean Corpuscular Hemoglobin 27.4 pg (28.0-34.0); Mean Corpuscular Volume 93.8 fl (80-94); Mean Platelet Volume 12.8 fL (7.4-10.4); Monocytes % 9.1 %; Neutrophils # 8.57 10^3/uL (1.8-7.7); Neutrophils % 81.4 %; Nucleated Red Blood Cells % 0 %; Platelet Count 137 10^3/cmm (130-400); Red Blood Count 2.59 10^6/uL (4.1-5.3); Red Cell Distribution Width 16.7 % (12.1-15.1); White Blood Count 10.5 10^3/uL (4.0-10.0)
[2022-11-15 05:29] LABS: Slide Review Slide Review Perform
[2022-11-15 05:33] LABS: Lactic Sepsis W/Reflex 1.5 mmol/L (0.5-2.2)
[2022-11-15 05:44] LABS: Anion Gap 24.5 (5-19); Blood Urea Nitrogen 24 mg/dL (8-23); Calcium 8.3 mg/dL (8.5-10.5); Carbon Dioxide 16 mmol/L (22-29); Chloride 98 mmol/L (98-107); Glucose 380 mg/dL (65-115); Magnesium 1.8 mg/dL (1.7-2.3); NT Pro B Type Natriuretic Pept 6065 pg/mL (0-450); Osmolality Calculated 298 mOsm/kg (285-295); Potassium 4.5 mmol/L (3.5-5.1); Sodium 134 mmol/L (136-145); Thyroid Stimulating Hormone 1.02 uIU/mL (0.27-4.20)
[2022-11-15 07:09] LABS: Glucose Point of Care 395 mg/dL (70-110)
[2022-11-15 07:48] LABS: Troponin 5 6HR Delta -46.2 ng/L (0-12)
[2022-11-15 07:49] LABS: Troponin 5 6HR 288.8 ng/L (0-15)
[2022-11-15] MEDS: ipratropium-albuterol 3 mL Neb INHALATION ×5 (08:08→23:04)
[2022-11-15] MEDS: budesonide 0.5 mg/2 mL Neb INHALATION ×2 (08:08→19:40)
[2022-11-15] MEDS: cefepime 1,000 MG in sodium chloride 0.9% (plus) 50 ML 100 MG IV ×2 (08:14→19:51)
[2022-11-15] MEDS: insulin lispro 100 unit/1 mL SUBCUT ×3 (08:15→17:44)
[2022-11-15] MEDS: apixaban 5 mg Tablet 2.5 MG PO ×2 (08:16→17:44)
[2022-11-15] MEDS: amiodarone 200 mg Tablet 400 MG PO ×2 (08:16→17:43)
[2022-11-15] MEDS: ferrous gluconate 324 mg Tablet PO ×2 (08:17→17:44)
[2022-11-15] MEDS: aspirin 81 mg EC Tablet PO (08:17)
[2022-11-15] MEDS: insulin glargine 100 units/1 mL 10 UNIT SUBCUT ×2 (08:17→17:44)
[2022-11-15] MEDS: predniSONE 5 mg Tablet PO ×2 (08:32→17:44)
[2022-11-15] MEDS: FUROsemide 10 mg/mL SDV 10mL 60 MG IVP (09:16)
--- NOTE | 2022-11-15 09:30 | PC.PHAR ---
Addendum entered by Nusrat Marquez 11/16/22 09:46: [facility] fax[facility] med [facility]-medications entered are from med bottles pt had-[facility] med list that [facility] fax[facility]-what pts states she could find bottles for but unsure if pt is taking-and what was on previously entered med list Addendum entered by Nusrat Marquez 11/16/22 07:23: faxed wp [facility] Addendum entered by Nusrat Marquez 11/15/22 11:38: STILL WAITING ON [facility] TO FAX MED LIST FAXED AGAIN @10:17 AND 11:35 Original Note: pt states he has someone come in every other week and sets his meds up pt states he is unsure where she is from-pt could verify his inulin and brought in meds he was discharged with but is unsure of other meds-pts read off a few med bottles from home but said shes unsure if hes taking them-waiting on [facility] to fax med list
[2022-11-15 11:08] LABS: Glucose Point of Care 384 mg/dL (70-110)
--- NOTE | 2022-11-15 12:35 | P.CONIM_ITS ---
Providers/Reason For Consult Consulting Physician/Specialty*: Cardiovascular medicine Reason for Consult*: Underlying organic heart disease, elevated troponin, heart failure Requesting Physician: Hospitalist Attending Physician: Belinda Roche MD Primary Care Provider: Paola Moore MD History of Present Illness History of Present Illness Anuj Irving is a 77 year old male who is chronically ill and is admitted to doctors' hospital frequently. In the last 15 months he has been in the hospital at least once a month and sometimes more often. He is admitted for exacerbation of a multitude of medical problems including heart failure with shortness of breath, weakness, chronic dizziness and COPD. His most recent his hospitalization was from the of this month through yesterday. This was an 8-day stay for pneumonia, COPD exacerbation, atrial fibrillation, hypertension, respiratory failure, DKA, hypernatremia among others. During that hospitalization cardiology was not asked to see him formally however the hospitalist spoke to Dr. Schwartz who recommended an echo and stress test be repeated. The echo revealed mild global hypokinesis with an EF of 35% with a prosthetic mitral valve functioning normally and mild aortic stenosis. The sestamibi revealed moderate to large fixed defects in all 3 segments with an ejection fraction of 26% and no evidence for ischemia. He went home yesterday afternoon and lasted only a few hours before he returned to the hospital by ambulance last evening. He was sitting in his chair while his and daughter were at [facility]. He felt he needed to have a bowel moveme nt, barely made it to the bedside commode and made a mess . He was able to get back to the chair. His found him needing to be cleaned up and she called the ambulance and brought him back. He was short of breath. He was given several breathing treatments in the emergency room which helped. He was admitted after a CTA was negative for pulmonary embolism. He has received IV Lasix and antibiotics along with his other medications. So far he has made 2450 mL of urine. He has a Ortiz catheter in place. He feels much improved. He is still acidotic with a serum bicarbonate of 16, his creatinine is 1.2. His troponin is 288. During his last hospital stay it was 340. He did not have a significant positive delta previously or today. His hemoglobin is quite low at 7.1. His BNP is over 6000. His EKG has been stable showing sinus rhythm with an old anterior wall NC and has not changed over time recently. He has a dramatically long past history. He has had coronary bypass surgery. He does not know when he had the surgery done but he remembers it was at [facility] in [place]. He also had a prosthetic mitral valve placed. His other medical problems include diabetes, atrial fibrillation, hypertension, ischemic cardiomyopathy, heart failure, acute kidney injury on chronic kidney disease, chronic hypoxemic respiratory failure, previous GI bleeding on anticoagulants, small AAA, moderate aortic stenosis, dig overdoses and bradycardia exacerbated by AV andres blockers. With ATN he has had hyperkalemia. He has been profoundly anemic. Review of Systems Narrative: His review of systems is diffusely positive in all distributions. Medications/Allergies Home Medications Medication Instructions Recorded Confirmed Last Taken Type cholecalciferol (vitamin D3) 25 25 mcg PO DAILY 07/12/21 11/16/22 09/09/22 History mcg (1,000 unit) capsule (Vitamin D3) docusate sodium 100 mg capsule 200 mg PO BEDTIME 07/12/21 11/16/22 06/20/22 History omeprazole 40 mg capsule,delayed 40 mg PO BID 07/12/21 11/16/22 09/10/22 History release carboxymethylcellulose sodium 1 % 1 drp ophthalmic (eye) BID PRN Dry 11/26/21 11/16/22 Unknown History eye liquid gel drops (Refresh Eye(S) Liquigel) fluticasone 100 mcg-salmeterol 50 1 inh inhalation BID 11/26/21 11/16/22 09/09/22 History mcg/dose blistr powdr for inhalation (Advair Diskus) furosemide 40 mg tablet (Lasix) 40 mg PO QAM 11/26/21 11/16/22 09/10/22 History ipratropium 20 mcg-albuterol 100 1 puff inhalation Q6H PRN 11/26/21 11/16/22 Unknown History mcg/actuation mist for inhalation Shortness Of Breath (Combivent Respimat) albuterol sulfate 90 mcg/actuation 2 inh inhalation Q4H PRN shortness 08/16/22 11/15/22 11/14/22 Rx aerosol inhaler of breath or wheezing #8.5 grams apixaban 5 mg tablet (Eliquis) 2.5 mg PO BID #30 tabs 09/15/22 11/16/22 09/10/22 Rx ipratropium 0.5 mg-albuterol 3 mg 3 ml inhalation Q4H PRN shortness 11/05/22 11/16/22 Unknown Rx (2.5 mg base)/3 mL nebulization of breath or wheezing #90 mL soln atorvastatin 80 mg tablet 80 mg PO QPM 11/07/22 11/16/22 Unknown History glimepiride 4 mg tablet 2 mg PO QAM 11/07/22 11/16/22 Unknown History insulin glargine 100 unit/mL (3 10 unit SUBCUT BID 11/07/22 11/16/22 Unknown History mL) subcutaneous pen (Lantus Solostar U-100 Insulin) amoxicillin 875 mg-potassium 1 tab PO BID 4 days #8 tabs 11/14/22 11/16/22 Unknown Rx clavulanate 125 mg tablet aspirin 81 mg tablet,delayed 81 mg PO DAILY #0 tabs 11/14/22 11/16/22 Unknown Rx release metoprolol tartrate 25 mg tablet 12.5 mg PO Q12H 30 days #30 tabs 11/14/22 11/15/22 11/14/22 Rx prednisone 5 mg tablets in a dose 5 mg PO BID 6 days #12 ea 11/14/22 11/15/22 Unknown Rx pack ipratropium bromide 17 2 puff inhalation TID 11/15/22 11/15/22 Unknown History mcg/actuation HFA aerosol inhaler (Atrovent HFA) amiodarone 200 mg tablet See Rx Instructions .Route .COMPLEX 11/16/22 11/16/22 Unknown History amlodipine 10 mg tablet 10 mg PO DAILY 11/16/22 11/16/22 Unknown History hydralazine 25 mg tablet 25 mg PO BID 11/16/22 11/16/22 Unknown History multivitamin 1 tab PO DAILY 11/16/22 11/16/22 Unknown History neomycin 3.5 mg/g-polymyxin B See Rx Instructions .Route .COMPLEX 11/16/22 11/16/22 Unknown History 10,000 unit/g-dexameth 0.1 % eye oint [id number] 3.5 1 applic ophthalmic (eye) TID 11/16/22 11/16/22 Unknown History mg-400 unit-10,000 unit/gram eye oint Allergies Allergy/AdvReac Type Severity Reaction Status Date / Time No Known Allergies Allergy Verified 11/15/22 03:28 Current Medications Generic Name Dose Route Start Last Admin Trade Name Michaelq PRN Reason Stop Dose Admin Albuterol/Ipratropium 3 ml 11/15/22 04:00 11/15/22 11:20 Ipratropium-Albuterol 3 Ml Neb INHALATION 3 ml Q4H.RESPIRATORY SHIELA Administration Albuterol/Ipratropium 3 ml 11/15/22 08:00 11/15/22 08:12 Ipratropium-Albuterol 3 Ml Neb INHALATION Not Given Q6H.RESP SHIELA Amiodarone HCl 400 mg 11/15/22 09:00 11/15/22 08:16 Amiodarone 200 Mg Tablet PO 400 mg BID SHIELA Administration Apixaban 2.5 mg 11/15/22 09:00 11/15/22 08:16 Apixaban 5 Mg Tablet PO 2.5 mg BID SHIELA Administration Aspirin 81 mg 11/15/22 09:00 11/15/22 08:17 Aspirin 81 Mg Ec Tablet PO 81 mg DAILY SHIELA Administration Budesonide 0.5 mg 11/15/22 08:00 11/15/22 08:08 Budesonide 0.5 Mg/2 Ml Neb INHALATION 0.5 mg BID.RESPIRATORY SHIELA Administration Ferrous Gluconate 324 mg 11/15/22 09:00 11/15/22 08:17 Ferrous Gluconate 324 Mg Tablet PO 324 mg BID SHIELA Administration Furosemide 40 mg 11/15/22 01:21 11/15/22 02:02 Furosemide 10 Mg/Ml Sdv 4ml IVP 40 mg Q12H SHIELA Administration Cefepime HCl 1,000 mg/ Sodium 50 mls @ 100 mls/hr 11/15/22 08:00 11/15/22 08:14 Chloride IV 100 mls/hr Q12H SHIELA Administration Protocol Insulin Glargine 10 unit 11/15/22 09:00 11/15/22 08:17 Insulin Glargine 100 Units/1 Ml SUBCUT 10 unit BID SHIELA Administration Insulin Human Lispro 0 unit 11/15/22 08:00 11/15/22 11:13 Insulin Lispro 100 Unit/1 Ml SUBCUT 12 unit TIDWM SHIELA Administration Protocol Metoprolol Tartrate 12.5 mg 11/15/22 01:21 11/15/22 01:56 Metoprolol Tartrate 25 Mg Tablet PO 12.5 mg Q12H SHIELA Administration Pantoprazole Sodium 40 mg 11/15/22 01:21 11/15/22 02:01 Pantoprazole 40 Mg Sdv IVP 40 mg Q24H SHIELA Administration Prednisone 5 mg 11/15/22 09:00 11/15/22 08:32 Prednisone 5 Mg Tablet PO 5 mg BID SHIELA Administration PFSH Acute PFSH: Medical History (Updated 11/15/22 @ 13:07 by Himanshu Chavarria MD) Abdominal pain Acute bacterial conjunctivitis of left eye Acute exacerbation of chronic obstructive pulmonary disease (COPD) Acute hyperkalemia Acute kidney injury Acute renal failure NADER (acute kidney injury) Anemia Aortic stenosis Atrial fibrillation Bradycardia Chronic kidney failure Congestive heart failure (CHF) COPD (chronic obstructive pulmonary disease) COPD (chronic obstructive pulmonary disease) Coronary artery disease Diabetes mellitus Diarrhea Digoxin overdose HFrEF (heart failure with reduced ejection fraction) HTN (hypertension) Hyperkalemia Hypomagnesemia Hyponatremia Hypoxia Ischemic cardiomyopathy Moderate aortic stenosis NSTEMI (non-ST elevated myocardial infarction) Pneumonia Poisoning by calcium-channel blockers Rhabdomyolysis Sepsis Suspected 2019-nCoV infection Symptomatic bradycardia Vomiting Surgical History (Updated 11/15/22 @ 13:07 by Himanshu Chavarria MD) History of mitral valve replacement with bioprosthetic valve 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 Family History Mother Stroke Denies family history of Diabetes CAD (coronary artery disease) Clotting disorder Dementia Social History Smoking and tobacco status: light tobacco smoker Quit status (tobacco): has quit using tobacco Year quit tobacco: 2017 Former quit date comment: smoked 1 pack per day x 36 years Alcohol intake: current Substance/Drug Use: never Household members: spouse Housing: House 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 He is sitting up in bed eating a light lunch. No distress HEENT: Exam within normal limits. NECK: Supple without jugular vein distention. The carotid upstroke is normal without bruits. BACK: Exam normal. LUNGS: Mildly decreased breath sounds with occasional moist rales in the bases HEART: Irregularly irregular rhythm ABDOMEN: Benign without organomegaly or tenderness. EXTREMITIES: No edema. NEUROLOGIC: Exam normal. SKIN: Unremarkable. Urinary Catheter Management: Ortiz: Cath Placed During This Visit: yes Reason for Continuing Indwelling Catheter: Other Urinary Catheter Date of Insertion: 11/15/22 Urinary Catheter Time of Insertion: 01:42 Data 11/17/22 04:50 11/17/22 04:50 Micro: Microbiology 11/14/22 21:23 Blood Culture - Preliminary Blood SPECIMEN COLLECTED 11/14/22 21:15 Blood Culture - Preliminary Blood SPECIMEN COLLECTED A&P Assessment and plan (1) Diabetes mellitus: (2) CHF exacerbation: (3) Acute respiratory failure with hypoxia: (4) Acute exacerbation of chronic obstructive airways disease: (5) Atrial fibrillation: (6) Acidosis, lactic: (7) HTN (hypertension): (8) Chronic kidney disease (CKD), stage III (moderate): (9) Atrial fibrillation with RVR: (10) Pneumonia: (11) Anemia: (12) Aortic stenosis: (13) Ischemic cardiomyopathy: (14) Moderate aortic stenosis: (15) NSTEMI (non-ST elevated myocardial infarction): (16) History of mitral valve replacement with bioprosthetic valve: (17) S/P CABG x 3: Plan He is chronically ill with exacerbations of many medical problems as evidenced by his chart history. This episode was once again related to exacerbation of his COPD and his congestive heart failure. It is difficult to tell whether there are any acute or chronic coronary lesions which may be causing this. His heart failure is obviously multifactorial to include primarily coronary disease with an ischemic cardiomyopathy and mitral valve disease along with aortic valve disease, hypertension, kidney disease, diabetes and anemia. His troponin is actually less than it was last time and so far there has been no positive delta. He remains mildly acidotic with a metabolic acidosis. His creatinine is stable. His EKG does not show any acute changes. We do not know anything about his bypass surgery. We do not have the bypass surgery report. I will search for that. 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 Hernandez tomorrow. He can make a decision as to whether or not the patient needs coronary angiography. He will need optimization of his cardiac and pulmonary function prior to angiography and we will need to see his bypass surgery report for location of the grafts. Consult Attestations Medical Necessity Statement: Hospitalization for management of heart failure, COPD, possible pneumonia. and High Time for a total of 90 minutes, includes reviewing past or interval history, examining/interviewing patient, placing orders, counseling patient/family/other support, updating patient/family/other support, discussing plan of care with staff, communicating with other healthcare providers, documenting encounter and coordinating care Diagnoses Diabetes mellitus E11.9 CHF exacerbation I50.9 Acute respiratory failure with hypoxia J96.01 Acute exacerbation of chronic obstructive airways disease J44.1 Atrial fibrillation I48.91 Acidosis, lactic E87.20 HTN (hypertension) I10 Chronic kidney disease (CKD), stage III (moderate) N18.30 Atrial fibrillation with RVR I48.91 Pneumonia J18.9 Anemia D64.9 Aortic stenosis I35.0 Ischemic cardiomyopathy I25.5 Moderate aortic stenosis I35.0 NSTEMI (non-ST elevated myocardial infarction) I21.4 History of mitral valve replacement with bioprosthetic valve Z95.3 S/P CABG x 3 Z95.1
--- NOTE | 2022-11-15 13:00 | P.MISC_ITS ---
Miscellaneous Note Purpose of Documentation: Overnight labs and H&P reviewed patient returned within a few hrs of discharge. states that upon retuning home, he went to sleep in his recliner and then woke up have had a bowel movement. He felt too weak and deconditioned to be able to clean the mess or walk to the bathroom. His thought his breathing looked worse than before and that he was very deconditioned, therefore he decided to return to the hospital He missed his doses of amiodarone and metoprolol States that he was unable to reach a pre admission level of functioning and would like to consider rehab priro to returning home, as discussed on last visit D/c cefepime, vancomycin will cover for recent staph pneumonia, he will be completing 14 days treatment in 3 days Overnight exam concerningf or flash pulmonary edema will obtain cardiology consult given recent admission with NSTEMI which was medi jaida managed with lovenox, ASA and statins. Stress test on recent admission had shown areas of old scarring without active ischemia.
[2022-11-15] MEDS: atorvastatin 40 mg Tablet 80 MG PO (17:44)
[2022-11-15 17:45] LABS: Glucose Point of Care 376 mg/dL (70-110)
[2022-11-15 21:02] LABS: Glucose Point of Care 386 mg/dL (70-110)
[2022-11-15] MEDS: vancomycin 1,000 MG in sodium chloride 0.9% 250 ML 250 MG IV (22:40)
[2022-11-16] VITALS (29 sets, daily range): BP systolic 116–138; BP diastolic 44–70; PULSE 65–91; RESP 16–34; TEMP 36.5–37.1; O2SAT 91–100
[2022-11-16] MEDS: metoprolol tartrate 25 mg Tablet 12.5 MG PO ×2 (00:34→13:40)
[2022-11-16] MEDS: pantoprazole 40 mg SDV IVP (00:34)
[2022-11-16] MEDS: FUROsemide 10 mg/mL SDV 4mL 40 MG IVP ×2 (00:34→13:40)
[2022-11-16 05:45] LABS: Basophils % 0.1 %; Hemoglobin 7.3 g/dL (11.7-16.6); Lymphocytes # 0.5 10^3/uL (0.8-4.8); Lymphocytes % 3.4 %; Mean Corpuscular HGB Conc 30.4 g/dL (30.0-36.0); Mean Corpuscular Hemoglobin 27.8 pg (28.0-34.0); Mean Corpuscular Volume 91.3 fl (80-94); Mean Platelet Volume 12.3 fL (7.4-10.4); Monocytes # 2.8 10^3/uL (0.2-0.9); Monocytes % 18.1 %; Neutrophils # 11.49 10^3/uL (1.8-7.7); Neutrophils % 73.7 %; Nucleated Red Blood Cells % 0 %; Platelet Count 155 10^3/cmm (130-400); Red Blood Count 2.63 10^6/uL (4.1-5.3); Red Cell Distribution Width 17.5 % (12.1-15.1); White Blood Count 15.6 10^3/uL (4.0-10.0)
[2022-11-16 06:10] LABS: Lactic Sepsis W/Reflex 2.3 mmol/L (0.5-2.2)
[2022-11-16 06:14] LABS: Anion Gap 17.4 (5-19); Blood Urea Nitrogen 21 mg/dL (8-23); Calcium 8.4 mg/dL (8.5-10.5); Carbon Dioxide 22 mmol/L (22-29); Chloride 97 mmol/L (98-107); Glucose 375 mg/dL (65-115); Magnesium 1.8 mg/dL (1.7-2.3); Osmolality Calculated 294 mOsm/kg (285-295); Potassium 3.4 mmol/L (3.5-5.1); Sodium 133 mmol/L (136-145)
[2022-11-16 06:57] LABS: Glucose Point of Care 381 mg/dL (70-110)
[2022-11-16 07:26] LABS: Reflex Lactate Order REFLEX LACTIC ORDERD
[2022-11-16] MEDS: budesonide 0.5 mg/2 mL Neb INHALATION ×2 (07:38→19:20)
[2022-11-16] MEDS: ipratropium-albuterol 3 mL Neb INHALATION ×5 (07:38→23:45)
[2022-11-16] MEDS: insulin lispro 100 unit/1 mL SUBCUT ×3 (08:11→18:03)
[2022-11-16] MEDS: amiodarone 200 mg Tablet 400 MG PO ×2 (08:12→18:01)
[2022-11-16] MEDS: insulin glargine 100 units/1 mL 10 UNIT SUBCUT ×2 (08:12→18:08)
[2022-11-16] MEDS: predniSONE 5 mg Tablet PO ×2 (08:12→18:03)
[2022-11-16] MEDS: apixaban 5 mg Tablet 2.5 MG PO ×2 (08:12→18:01)
[2022-11-16] MEDS: ferrous gluconate 324 mg Tablet PO ×2 (08:12→18:03)
[2022-11-16] MEDS: aspirin 81 mg EC Tablet PO (08:12)
[2022-11-16 08:40] LABS: Lactic Acid level (Lactate) 1.3 mmol/L (0.5-2.2)
--- NOTE | 2022-11-16 10:09 | P.PN_ITS ---
Subjective Subjective: Patient denies chest pain. shortness of breath is improving. Vitals/I&O/Wt Last Vital Signs Temp 97.7 F 11/16/22 01:00 Pulse 78 11/16/22 07:52 Resp 18 11/16/22 07:35 BP 135/54 11/16/22 04:00 Pulse Ox 96 11/16/22 07:35 O2 Del Method Nasal Cannula 11/16/22 07:35 O2 Flow Rate 3 11/16/22 07:35 11/15/22 11/16/22 11/16/22 22:59 06:59 14:59 Intake Total 50 / 460 1050 / 1510 Output Total 1700 / 1700 1150 / 2850 Balance -1650 / -1240 -100 / -1340 Weight last 48 hrs Weight 141 lb 14.4 oz Weight 120 lb Physical Exam Narrative: GENERAL: Patient is alert, awake and oriented x3. [] NECK: No jugular vein distension. [] HEENT: No cyanosis. No icterus. No pallor. [] HEART: Regular S1 and S2. No murmur, rub or gallop. [] LUNGS: Diminished air entry. CENTRAL NERVOUS SYSTEM: Grossly nonfocal. [] EXTREMITIES: Lower extremities with no edema Urinary Catheter Management: Ortiz: Cath Placed During This Visit: yes Reason for Continuing Indwelling Catheter: Other Urinary Catheter Date of Insertion: 11/15/22 Urinary Catheter Time of Insertion: 01:42 Data 11/17/22 04:50 11/17/22 04:50 Micro: Microbiology 11/15/22 02:30 Urine Culture - Preliminary Urine,Clean Catch 11/14/22 21:23 Blood Culture - Preliminary Blood NEGATIVE TO DATE 11/14/22 21:15 Blood Culture - Preliminary Blood NEGATIVE TO DATE A&P Assessment and plan (1) Diabetes mellitus: (2) CHF exacerbation: (3) Acute respiratory failure with hypoxia: (4) Acute exacerbation of chronic obstructive airways disease: (5) Atrial fibrillation: (6) Acidosis, lactic: (7) HTN (hypertension): (8) Chronic kidney disease (CKD), stage III (moderate): (9) Atrial fibrillation with RVR: (10) Pneumonia: (11) Anemia: (12) Aortic stenosis: (13) Ischemic cardiomyopathy: (14) NSTEMI (non-ST elevated myocardial infarction): (15) History of mitral valve replacement with bioprosthetic valve: (16) S/P CABG x 3: Plan Patient's troponin levels have not trended up significantly. He has been having recurrent congestive heart failure episodes. Ideally he should have coronary angiogram to rule out ischemic cause for his recurrent CHF episodes and assess coronary anatomy secondary to troponin elevation. He has significant anemia. Will need evaluation of that prior to invasive procedure. Continue IV diuresis. Close I&O's. Monitor renal function He is vitally stable at this time. Low-sodium diet Thank for involving us with care of this patient. We will continue to follow. Please call with questions or Attestations Medical Necessity Statement*: Care not expected to cross 2 midnights. Coding Level of Care Code Acute Code for [facility] Diagnoses Diabetes mellitus E11.9 CHF exacerbation I50.9 Acute respiratory failure with hypoxia J96.01 Acute exacerbation of chronic obstructive airways disease J44.1 Atrial fibrillation I48.91 Acidosis, lactic E87.20 HTN (hypertension) I10 Chronic kidney disease (CKD), stage III (moderate) N18.30 Atrial fibrillation with RVR I48.91 Pneumonia J18.9 Anemia D64.9 Aortic stenosis I35.0 Ischemic cardiomyopathy I25.5 NSTEMI (non-ST elevated myocardial infarction) I21.4 History of mitral valve replacement with bioprosthetic valve Z95.3 S/P CABG x 3 Z95.1
--- NOTE | 2022-11-16 12:27 | P.PN_ITS ---
Subjective Subjective: Patient was seen and examined this morning was complaining of neck pain as well as constipation. Medications: Medication Review Details: Generic Name Dose Route Start Last Admin Trade Name Jaclyn PRN Reason Stop Dose Admin Albuterol/Ipratrop ium 3 ml 11/15/22 04:00 11/16/22 11:30 Ipratropium-Albu terol 3 Ml Neb INHALATION 3 ml Q4H.RESPIRATORY S CH Administration Albuterol/Ipratrop ium 3 ml 11/15/22 08:00 11/16/22 07:38 Ipratropium-Albu terol 3 Ml Neb INHALATION Not Given Q6H.RESP SHIELA Amiodarone HCl 400 mg 11/15/22 09:00 11/16/22 08:12 Amiodarone 200 M g Tablet PO 400 mg BID SHIELA Administration Apixaban 2.5 mg 11/15/22 09:00 11/16/22 08:12 Apixaban 5 Mg Ta blet PO 2.5 mg BID SHIELA Administration Aspirin 81 mg 11/15/22 09:00 11/16/22 08:12 Aspirin 81 Mg Ec Tablet PO 81 mg DAILY SHIELA Administration Atorvastatin Calci um 80 mg 11/15/22 18:00 11/15/22 17:44 Atorvastatin 40 Mg Tablet PO 80 mg QPM SHIELA Administration Budesonide 0.5 mg 11/15/22 08:00 11/16/22 07:38 Budesonide 0.5 M g/2 Ml Neb INHALATION 0.5 mg BID.RESPIRATORY S CH Administration Ferrous Gluconate 324 mg 11/15/22 09:00 11/16/22 08:12 Ferrous Gluconat e 324 Mg Tablet PO 324 mg BID SHIELA Administration Furosemide 40 mg 11/15/22 01:21 11/16/22 00:34 Furosemide 10 Mg /Ml Sdv 4ml IVP 40 mg Q12H SHIELA Administration Vancomycin HCl 1,0 00 mg/ 250 mls @ 250 mls /hr 11/15/22 23:00 11/16/22 00:07 Sodium Chloride IV Infused Q24H SHIELA Infusion Insulin Glargine 10 unit 11/15/22 09:00 11/16/22 08:12 Insulin Glargine 100 Units/1 Ml SUBCUT 10 unit BID SHIELA Administration Insulin Human Lisp ro 0 unit 11/15/22 08:00 11/16/22 11:47 Insulin Lispro 1 00 Unit/1 Ml SUBCUT 14 unit TIDWM SHIELA Administration Protocol Metoprolol Tartrat e 12.5 mg 11/15/22 01:21 11/16/22 00:34 Metoprolol Tartr ate 25 Mg Tablet PO 12.5 mg Q12H SHIELA Administration Pantoprazole Sodiu m 40 mg 11/15/22 01:21 11/16/22 00:34 Pantoprazole 40 Mg Sdv IVP 40 mg Q24H SHIELA Administration Prednisone 5 mg 11/15/22 09:00 11/16/22 08:12 Prednisone 5 Mg Tablet PO 5 mg BID SHIELA Administration Vitals/I&O/Wt Last Vital Signs Temp 97.7 F 11/16/22 01:00 Pulse 89 11/16/22 11:39 Resp 20 H 11/16/22 11:30 BP 123/54 11/16/22 10:00 Pulse Ox 92 11/16/22 11:30 O2 Del Method Nasal Cannula 11/16/22 11:30 O2 Flow Rate 3 11/16/22 11:30 11/15/22 11/16/22 11/16/22 22:59 06:59 14:59 Intake Total 50 / 460 1050 / 1510 Output Total 1700 / 1700 1150 / 2850 Balance -1650 / -1240 -100 / -1340 Weight last 48 hrs Weight 64.365 kg Weight 54.431 kg Physical Exam Const: COMMON NORMALS: patient oriented x3 HENMT: COMMON NORMALS: normocephalic and atraumatic HEAD & SCALP: normocephalic and atraumatic Resp: COMMON NORMALS: clear to auscultation bilaterally EFFORT & I NSPECTION: Yes symmetric chest movement AUSCULTATION: clear to auscultation bilaterally Cardio: COMMON NORMALS: regular rate, regular rhythm, S1 normal heart sound present, S2 normal heart sound present, No gallops present (Cardio), No murmurs present (Cardio), No rub (Cardio) and Peripheral pulses 2+ throughout RATE: regular rate RHYTHM: regular rhythm HEART SOUNDS: S1 normal heart sound present and S2 normal heart sound present PERIPHERAL PULSES: Peripheral pulses 2+ throughout GI: COMMON NORMALS: Normal to inspection, nondistended, normoactive bowel sounds present, Soft to palpation, non-tender, No hepatosplenomegaly present and no masses AUSCULTATION: Yes normoactive bowel sounds PALPATION: Yes Soft to palpation and Yes No hepatosplenomegaly present RECTAL EXAM: Yes deferred Extremity: COMMON NORMALS: no clubbing, cyanosis or edema and no pedal edema Neuro: COMMON NORMALS: patient oriented x3 Urinary Catheter Management: Ortiz: Cath Placed During This Visit: yes Reason for Continuing Indwelling Catheter: Other Urinary Catheter Date of Insertion: 11/15/22 Urinary Catheter Time of Insertion: 01:42 Data 11/16/22 04:55 11/16/22 04:55 Micro: Microbiology 11/15/22 02:30 Urine Culture - Preliminary Urine,Clean Catch 11/14/22 21:23 Blood Culture - Preliminary Blood NEGATIVE TO DATE 11/14/22 21:15 Blood Culture - Preliminary Blood NEGATIVE TO DATE A&P Assessment and plan (1) Acute respiratory failure with hypoxia: (2) HTN (hypertension): (3) Acidosis, lactic: (4) Chronic kidney disease (CKD), stage III (moderate): (5) Pneumonia: (6) COPD (chronic obstructive pulmonary disease): Qualifiers: COPD type: unspecified COPD Qualified Code(s): J44.9 - Chronic obst ructive pulmonary disease, unspecified (7) CHF exacerbation: (8) Diabetes mellitus: (9) Sepsis: Plan 77 year old male with PMH of ?COPD, atrial fibrillation, coronary artery disease, diabetes mellitus, hypertension, ischemic cardiomyopathy, HFrEF,moderate aortic stenosis came in with chief complaint of Shortness of breath, he was recently discharged from the hospital after being managed for respiratory failure with hypoxia secondary to staph pneumonia. He was discharged on p.o. Augmentin, was readmitted next day, On the last admission he was offered to go to SNF, before returning to him, to continue with, rehabilitation, but patient decided against it, this time he is agreeable to go to SNF, for continued management. Assessment Acute on chronic respiratory failure with hypoxia: Possibly secondary to pneumonia, acute flash pulmonary edema versus possible aspiration CTA Chest : Negative for pulmonary embolism,Patchy bilateral airspace infiltrates. Emphysematous changes. Bibasilar bronchiectasis. Lower extremity Doppler vein is negative for DVT Blood culture negative till date Prior sputum culture: MSSA Currently he is on vancomycin, cefepime has been discontinued. Currently saturating well on 3 L supplemental oxygen through nasal cannula Aspiration precaution SPL evaluation completed: Currently on dysphagia level 4 diet Ac on chronic decompensated heart failure with reduced ejection fraction: Most recent 2D echo reviewed: Continue Lasix 40 IV twice daily Intake output charting Daily weight Monitor electrolytes Continue telemetry monitoring Pneumonia -As above aspiration versus worsening of underlying pneumonia -Sputum cultures, blood cultures Non-ST elevation SD -First EKG shows junctional rhythm, troponin 366, repeat EKG no acute ST-T wave changes, troponin trending downwards -During his last hospitalization he can lie flat for consideration of angio and we might have to consider it during this hospitalization Cardiology on board Atrial fibrillation: Continue amiodarone 400 mg p.o. twice daily Continue Eliquis for anticoagulation -History of anemia: -Positive FOBT -Monitor hemoglobin -Eliquis was held on hospital discharge will resume monitor hemoglobin closely COPD does not seem acute in exacerbation monitor CKD stage III monitor Hyperglycemia, insulin sliding scale, Lantus Pseudohyponatremia secondary hyperglycemia Worsening leukocytosis as above Lactic acidosis, likely multifactorial from pulmonary edema, acute flash pulm edema, pneumonia, aspiration event, will monitor Sepsis, secondary to pneumonia with evidence of lactic acidosis, elevated white count, source of infection Attestations Medical Necessity Statement*: Patient is in hospital for IV antibiotics Coding Level of Care Code 66446 Diagnoses Acute respiratory failure with hypoxia J96.01 HTN (hypertension) I10 Acidosis, lactic E87.20 Chronic kidney disease (CKD), stage III (moderate) N18.30 Pneumonia J18.9 COPD (chronic obstructive pulmonary disease) J44.9 COPD type: unspecified COPD CHF exacerbation I50.9 Diabetes mellitus E11.9 Sepsis A41.9
[2022-11-16 17:18] LABS: Glucose Point of Care 348 mg/dL (70-110)
[2022-11-16] MEDS: atorvastatin 40 mg Tablet 80 MG PO (18:02)
[2022-11-16] MEDS: docusate sodium 100 mg Capsule PO (18:03)
--- NOTE | 2022-11-16 18:36 | PC.NURSE ---
Shift summary, uneventful shift, tolerated being out of bed majority of day
[2022-11-16 21:25] LABS: Glucose Point of Care 303 mg/dL (70-110)
[2022-11-16] MEDS: vancomycin 1,000 MG in sodium chloride 0.9% 250 ML 250 MG IV (22:40)
[2022-11-17] VITALS (21 sets, daily range): BP systolic 118–142; BP diastolic 50–69; PULSE 61–89; RESP 15–20; TEMP 36.3–36.8; O2SAT 91–100
[2022-11-17] MEDS: FUROsemide 10 mg/mL SDV 4mL 40 MG IVP ×2 (00:37→17:47)
[2022-11-17] MEDS: metoprolol tartrate 25 mg Tablet 12.5 MG PO ×2 (00:37→13:45)
[2022-11-17] MEDS: pantoprazole 40 mg SDV IVP (00:37)
[2022-11-17 05:02] LABS: Basophils % 0.1 %; Eosinophils % 0.1 %; Hematocrit 21.1 % (42.0-52.0); Hemoglobin 6.6 g/dL (11.7-16.6); Lymphocytes # 0.7 10^3/uL (0.8-4.8); Lymphocytes % 4.9 %; Mean Corpuscular HGB Conc 31.3 g/dL (30.0-36.0); Mean Corpuscular Hemoglobin 28.7 pg (28.0-34.0); Mean Corpuscular Volume 91.7 fl (80-94); Mean Platelet Volume 12.6 fL (7.4-10.4); Monocytes # 2.2 10^3/uL (0.2-0.9); Monocytes % 15.1 %; Neutrophils # 10.85 10^3/uL (1.8-7.7); Nucleated Red Blood Cells % 0 %; Platelet Count 152 10^3/cmm (130-400); Red Cell Distribution Width 17.9 % (12.1-15.1); White Blood Count 14.7 10^3/uL (4.0-10.0)
[2022-11-17 05:19] LABS: Alanine Aminotransferase 20 U/L (0-41); Albumin Level 2.9 g/dL (3.5-5.2); Alkaline Phosphatase 96 U/L (40-130); Anion Gap 15.5 (5-19); Aspartate Amino Transferase 21 U/L (0-40); Blood Urea Nitrogen 16 mg/dL (8-23); Calcium 8.1 mg/dL (8.5-10.5); Carbon Dioxide 24 mmol/L (22-29); Chloride 98 mmol/L (98-107); Globulin 2.8 g/dL (1.3-4.6); Glucose 266 mg/dL (65-115); Magnesium 1.9 mg/dL (1.7-2.3); Osmolality Calculated 288 mOsm/kg (285-295); Potassium 3.5 mmol/L (3.5-5.1); Sodium 134 mmol/L (136-145); Total Bilirubin 0.6 mg/dL (0.15-1.2); Total Protein 5.7 g/dL (6.6-8.7)
[2022-11-17 05:26] LABS: Slide Review Slide Review Perform
[2022-11-17 06:39] LABS: Glucose Point of Care 300 mg/dL (70-110)
[2022-11-17] MEDS: budesonide 0.5 mg/2 mL Neb INHALATION ×2 (07:37→20:47)
[2022-11-17] MEDS: ipratropium-albuterol 3 mL Neb INHALATION ×4 (07:37→20:47)
--- NOTE | 2022-11-17 08:36 | PM.PN ---
Subjective Subjective: Patient was seen and examined this morning, denied any shortness of breath ,abdominal pain, nausea vomiting. Fortunately his hemoglobin dropped to 6.6 today this morning hematocrit of 21, requiring the need for 1 unit PRBC transfusion.Eliquis has been held. Medications: Medication Review Details: Generic Name Dose Route Start Last Admin Trade Name Jaclyn PRN Reason Stop Dose Admin Albuterol/Ipratrop ium 3 ml 11/15/22 04:00 11/17/22 07:37 Ipratropium-Albu terol 3 Ml Neb INHALATION 3 ml Q4H.RESPIRATORY S CH Administration Albuterol/Ipratrop ium 3 ml 11/15/22 08:00 11/17/22 07:42 Ipratropium-Albu terol 3 Ml Neb INHALATION Not Given Q6H.RESP SHIELA Amiodarone HCl 400 mg 11/15/22 09:00 11/16/22 18:01 Amiodarone 200 M g Tablet PO 400 mg BID SHIELA Administration Apixaban 2.5 mg 11/15/22 09:00 11/16/22 18:01 Apixaban 5 Mg Ta blet PO 2.5 mg BID SHIELA Administration Aspirin 81 mg 11/15/22 09:00 11/16/22 08:12 Aspirin 81 Mg Ec Tablet PO 81 mg DAILY SHIELA Administration Atorvastatin Calci um 80 mg 11/15/22 18:00 11/16/22 18:02 Atorvastatin 40 Mg Tablet PO 80 mg QPM SHIELA Administration Budesonide 0.5 mg 11/15/22 08:00 11/17/22 07:37 Budesonide 0.5 M g/2 Ml Neb INHALATION 0.5 mg BID.RESPIRATORY S CH Administration Docusate Sodium 100 mg 11/16/22 18:00 11/16/22 18:03 Docusate Sodium 100 Mg Capsule PO 100 mg BID SHIELA Administration Ferrous Gluconate 324 mg 11/15/22 09:00 11/16/22 18:03 Ferrous Gluconat e 324 Mg Tablet PO 324 mg BID SHIELA Administration Furosemide 40 mg 11/15/22 01:21 11/17/22 00:37 Furosemide 10 Mg /Ml Sdv 4ml IVP 40 mg Q12H SHIELA Administration Vancomycin HCl 1,0 00 mg/ 250 mls @ 250 mls /hr 11/15/22 23:00 11/16/22 23:54 Sodium Chloride IV Infused Q24H SHIELA Infusion Insulin Glargine 10 unit 11/15/22 09:00 11/16/22 18:08 Insulin Glargine 100 Units/1 Ml SUBCUT 10 unit BID SHIELA Administration Insulin Human Lisp ro 0 unit 11/15/22 08:00 11/16/22 18:03 Insulin Lispro 1 00 Unit/1 Ml SUBCUT 12 unit TIDWM SHIELA Administration Protocol Metoprolol Tartrat e 12.5 mg 11/15/22 01:21 11/17/22 00:37 Metoprolol Tartr ate 25 Mg Tablet PO 12.5 mg Q12H SHIELA Administration Pantoprazole Sodiu m 40 mg 11/15/22 01:21 11/17/22 00:37 Pantoprazole 40 Mg Sdv IVP 40 mg Q24H SHIELA Administration Prednisone 5 mg 11/15/22 09:00 11/16/22 18:03 Prednisone 5 Mg Tablet PO 5 mg BID SHIELA Administration Vitals/I&O/Wt Last Vital Signs Temp 98.3 F 11/17/22 04:00 Pulse 61 11/17/22 07:54 Resp 16 11/17/22 07:54 BP 139/53 11/17/22 07:54 Pulse Ox 100 11/17/22 07:54 O2 Del Method Nasal Cannula 11/17/22 07:54 O2 Flow Rate 4 11/17/22 07:38 11/16/22 11/17/22 11/17/22 22:59 06:59 14:59 Intake Total 120 / 520 250 / 770 Output Total 1000 / 1000 Balance 120 / 520 -750 / -230 Physical Exam Const: COMMON NORMALS: patient oriented x3 HENMT: COMMON NORMALS: normocephalic and atraumatic HEAD & SCALP: normocephalic and atraumatic Resp: COMMON NORMALS: clear to auscultation bilaterally EFFORT & INSPECTION: Yes symmetric chest movement AUSCULTATION: clear to auscultation bilaterally Cardio: COMMON NORMALS: regular rate, regular rhythm, S1 normal heart sound present, S2 normal heart sound present, No gallops present (Cardio), No murmurs present (Cardio), No rub (Cardio) and Peripheral pulses 2+ throughout RATE: regular rate RHYTHM: regular rhythm HEART SOUNDS: S1 normal heart sound present and S2 normal heart sound present PERIPHERAL PULSES: Peripheral pulses 2+ throughout GI: COMMON NORMALS: Normal to inspection, nondistended, normoactive bowel sounds present, Soft to palpation, non-tender, No hepatosplenomegaly present and no masses AUSCULTATION: Yes normoactive bowel sounds PALPATION: Yes Soft to palpation and Yes No hepatosplenomegaly present RECTAL EXAM: Yes deferred Extremity: COMMON NORMALS: no clubbing, cyanosis or edema and no pedal edema Neuro: COMMON NORMALS: patient oriented x3 Urinary Catheter Management: Ortiz: Cath Placed During This Visit: yes Reason for Continuing Indwelling Catheter: Other Urinary Catheter Date of Insertion: 11/15/22 Urinary Catheter Time of Insertion: 01:42 Data 11/17/22 04:50 11/17/22 04:50 Micro: Microbiology 11/15/22 02:30 Urine Culture - Preliminary Urine,Clean Catch A&P Assessment and plan (1) Acute respiratory failure with hypoxia: (2) HTN (hypertension): (3) Acidosis, lactic: (4) Chronic kidney disease (CKD), stage III (moderate): (5) Pneumonia: (6) COPD (chronic obstructive pulmonary disease): Qualifiers: COPD type: unspecified COPD Qualified Code(s): J44.9 - Chronic obstructive pulmonary disease, unspecified (7) CHF exacerbation: (8) Diabetes mellitus: (9) Sepsis: Plan 77 year old male with PMH of ?COPD, atrial fibrillation, coronary artery disease, diabetes mellitus, hypertension, ischemic cardiomyopathy, HFrEF,moderate aortic stenosis came in with chief complaint of Shortness of breath, he was recently discharged from the hospital after being managed for respiratory failure with hypoxia secondary to staph pneumonia. He was discharged on p.o. Augmentin, was readmitted next day, On the last admission he was offered to go to SNF, before returning to him, to continue with, rehabilitation, but patient decided against it, this time he is agreeable to go to SNF, for continued management. Assessment Acute on chronic respiratory failure with hypoxia: Possibly secondary to pneumonia, acute flash pulmonary edema versus possible aspiration CTA Chest : Negative for pulmonary embolism,Patchy bilateral airspace infiltrates. Emphysematous changes. Bibasilar bronchiectasis. Lower extremity Doppler vein is negative for DVT Blood culture negative till date Prior sputum culture: MSSA Currently he is on vancomycin, cefepime has been discontinued. Currently saturating well on 3 L supplemental oxygen through nasal cannula Aspiration precaution SPL evaluation completed: Currently on dysphagia level 4 diet Ac on chronic decompensated heart failure with reduced ejection fraction: Most recent 2D echo reviewed: Continue Lasix 40 IV twice daily Intake output charting Daily weight Monitor electrolytes Continue telemetry monitoring Pneumonia: -As above aspiration versus worsening of underlying pneumonia -Sputum cultures, blood cultures Non-ST elevation NV: -First EKG shows junctional rhythm, troponin 366, repeat EKG no acute ST-T wave changes, troponin trending downwards -During his last hospitalization he can lie flat for consideration of angio, possibility of which was considered during this hospital stay, butGiven his dropping H&H, currently conservative medical management has been undertaken. Cardiology on board Atrial fibrillation: Continue amiodarone 400 mg p.o. twice daily Was on Eliquis for anticoagulation, has been discontinued because of concerns for GI bleed. -History of anemia: -Positive FOBT Given the fact that the H&H is dropping, with positive FOBT requiring the need for transfusion, Eliquis has been discontinued currently, risk and benefit of being off anticoagulation has been explained to the patient, patient currently wants to continue with conservative medical management, which includes being on Protonix, being off anticoagulation, transfusion as needed, he is not agreeable for any EGD and colonoscopy currently. Current plan is to transfuse him 1 unit PRBC, monitor H&H. COPD does not seem acute in exacerbation monitor CKD stage III monitor Hyperglycemia, insulin sliding scale, Lantus Pseudohyponatremia secondary hyperglycemia Worsening leukocytosis as above Lactic acidosis, likely multifactorial from pulmonary edema, acute flash pulm edema, pneumonia, aspiration event, will monitor Sepsis, secondary to pneumonia with evidence of lactic acidosis, elevated white count, source of infection Attestations Medical Necessity Statement*: Needs to be in hospital for blood transfusion, I.V antibiotics Coding Level of Care Code 62763 Diagnoses Acute respiratory failure with hypoxia J96.01 HTN (hypertension) I10 Acidosis, lactic E87.20 Chronic kidney disease (CKD), stage III (moderate) N18.30 Pneumonia J18.9 COPD (chronic obstructive pulmonary disease) J44.9 COPD type: unspecified COPD CHF exacerbation I50.9 Diabetes mellitus E11.9 Sepsis A41.9
[2022-11-17] MEDS: aspirin 81 mg EC Tablet PO (08:45)
[2022-11-17] MEDS: amiodarone 200 mg Tablet 400 MG PO ×2 (08:45→17:47)
[2022-11-17] MEDS: ferrous gluconate 324 mg Tablet PO ×2 (08:45→17:47)
[2022-11-17] MEDS: predniSONE 5 mg Tablet PO ×2 (08:45→17:47)
[2022-11-17] MEDS: insulin lispro 100 unit/1 mL SUBCUT ×3 (08:45→17:47)
[2022-11-17] MEDS: docusate sodium 100 mg Capsule PO ×2 (08:45→17:47)
[2022-11-17] MEDS: insulin glargine 100 units/1 mL 10 UNIT SUBCUT ×2 (08:47→17:47)
--- NOTE | 2022-11-17 08:51 | PM.PN ---
Subjective Subjective: Patient's Hgb dropped to 6.6. Got transfusion. Otherwise feeling better. Diuresed well. Vitals/I&O/Wt Last Vital Signs Temp 98.3 F 11/17/22 04:00 Pulse 61 11/17/22 07:54 Resp 16 11/17/22 07:54 BP 139/53 11/17/22 07:54 Pulse Ox 100 11/17/22 07:54 O2 Del Method Nasal Cannula 11/17/22 07:54 O2 Flow Rate 4 11/17/22 07:38 11/16/22 11/17/22 11/17/22 22:59 06:59 14:59 Intake Total 120 / 520 250 / 770 Output Total 1000 / 1000 Balance 120 / 520 -750 / -230 Physical Exam Narrative: GENERAL: Patient is alert, awake and oriented x3. [] NECK: No jugular vein distension. [] HEENT: No cyanosis. No icterus. No pallor. [] HEART: Regular S1 and S2. No murmur, rub or gallop. [] LUNGS: Diminished air entry. CENTRAL NERVOUS SYSTEM: Grossly nonfocal. [] EXTREMITIES: Lower extremities with no edema Urinary Catheter Management: Ortiz: Cath Placed During This Visit: yes Reason for Continuing Indwelling Catheter: Other Urinary Catheter Date of Insertion: 11/15/22 Urinary Catheter Time of Insertion: 01:42 Data 11/18/22 06:06 11/18/22 06:06 Micro: Microbiology 11/15/22 02:30 Urine Culture - Final Urine,Clean Catch A&P Assessment and plan (1) Diabetes mellitus: (2) CHF exacerbation: (3) Acute respiratory failure with hypoxia: (4) Acute exacerbation of chronic obstructive airways disease: (5) Atrial fibrillation: (6) Acidosis, lactic: (7) HTN (hypertension): (8) Chronic kidney disease (CKD), stage III (moderate): (9) Atrial fibrillation with RVR: (10) Pneumonia: (11) Anemia: (12) Aortic stenosis: (13) Ischemic cardiomyopathy: (14) NSTEMI (non-ST elevated myocardial infarction): (15) History of mitral valve replacement with bioprosthetic valve: (16) S/P CABG x 3: Plan Given patient's significant anemia, we will hold off on coronary angiogram at this time. Medical therapy. Blood transfusions as needed. Close monitoring of H&H. Continue IV diuresis. Close I&O's. Monitor renal function Low-sodium diet Thank for involving us with care of this patient. We will continue to follow. Please call with questions or Attestations Medical Necessity Statement*: Care expected to cross 2 midnights. Coding Level of Care Code Acute Code for Chg Fwd Diagnoses Diabetes mellitus E11.9 CHF exacerbation I50.9 Acute respiratory failure with hypoxia J96.01 Acute exacerbation of chronic obstructive airways disease J44.1 Atrial fibrillation I48.91 Acidosis, lactic E87.20 HTN (hypertension) I10 Chronic kidney disease (CKD), stage III (moderate) N18.30 Atrial fibrillation with RVR I48.91 Pneumonia J18.9 Anemia D64.9 Aortic stenosis I35.0 Ischemic cardiomyopathy I25.5 NSTEMI (non-ST elevated myocardial infarction) I21.4 History of mitral valve replacement with bioprosthetic valve Z95.3 S/P CABG x 3 Z95.1
--- NOTE | 2022-11-17 10:10 | PC.CHAP ---
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 police and fire dispatcher visit [] Patient/Family/Request visit [] Outpatient visit [] Follow-up visit [] Physician referral [] Code/Alert [x] Routine visit [] Staff referral [] Actively dying [] Patient sleeping [] Family support [] [] Out of room [] Palliative care [] [] Receiving care in room [] Pre-surgical visit [] Trauma [] Long length of stay [] ICU visit [] Other: Relational/Emotional Strength [x] Patient feels connected with others/family/visitors/staff [] Distress [] Loneliness/isolation [] Abandonment Spirituality of Patient [] Person of Laxmi [] Attends Restoration of their Laxmi [] Believes in Prayer [] Reads Bible or Amish materials [] There are Spiritual issues to be addressed [employer] Interventions [x] Prayer [x] Active listening [] Non-anxious presence [x] Spiritual/emotional support [] Crisis/trauma care [] Spiritual counseling [] Bereavement support [] Provided bereavement packet [] Provided Bible/devotional materials [] Provided toy/stuffed animal, coloring book to patient or family member [] Provided Communion [] Anointing/[place] [] Salvation [x] Completed spiritual assessment [] Other: Impact on Illness or Injury [] Angry [] Fearful [] Anxious [] Often cries [] Exhaustion [] Unable to work [] Unable to attend rastafari [] Unable to walk/stand [] Unable to read [] Unable to drive [] Unable to eat/drink [] Unable to sleep [] Unable to be with family [] Patient intubated [] Other: Summary Time spent with patient 10 min
[2022-11-17 11:15] LABS: Glucose Point of Care 301 mg/dL (70-110)
--- NOTE | 2022-11-17 11:55 | PC.SOCIAL ---
IMM Update Pg 2 of IMM updated and reviewed w/ patient. Copy provided and Copy dated, and initialed and placed in chart.
--- NOTE | 2022-11-17 15:31 | PC.OT ---
OT TREATMENT ATTEMPTED TWICE TODAY; AT NOON-PATIENT RECEIVING BLOOD PRODUCT AND EATING LUNCH. THERAPIST RETURNED AGAIN IN P.M. AND PATIENT WAS SLEEPING SOUNDLY; CONTINUES TO RECEIVE BLOOD PRODUCTS
[2022-11-17 17:20] LABS: Glucose Point of Care 191 mg/dL (70-110)
[2022-11-17] MEDS: atorvastatin 40 mg Tablet 80 MG PO (17:47)
[2022-11-17 21:32] LABS: Glucose Point of Care 175 mg/dL (70-110)
[2022-11-17 22:27] LABS: Vancomycin Trough 16.3 ug/mL (10-15)
[2022-11-17] MEDS: vancomycin 1,000 MG in sodium chloride 0.9% 250 ML 250 MG IV (22:56)
[2022-11-18] VITALS (15 sets, daily range): BP systolic 119–131; BP diastolic 41–57; PULSE 58–71; RESP 16–18; TEMP 36.3–37.2; O2SAT 94–99
[2022-11-18] MEDS: acetaminophen 325 mg Tablet 650 MG PO (00:06)
[2022-11-18] MEDS: metoprolol tartrate 25 mg Tablet 12.5 MG PO ×2 (01:22→12:24)
[2022-11-18] MEDS: pantoprazole 40 mg SDV IVP (01:22)
[2022-11-18] MEDS: ipratropium-albuterol 3 mL Neb INHALATION ×4 (03:00→20:54)
[2022-11-18] MEDS: FUROsemide 10 mg/mL SDV 4mL 40 MG IVP ×2 (04:52→18:19)
[2022-11-18 06:16] LABS: Eosinophils % 0.1 %; Hematocrit 26.2 % (42.0-52.0); Hemoglobin 8.2 g/dL (11.7-16.6); Lymphocytes # 0.7 10^3/uL (0.8-4.8); Lymphocytes % 5.5 %; Mean Corpuscular HGB Conc 31.3 g/dL (30.0-36.0); Mean Corpuscular Hemoglobin 27.8 pg (28.0-34.0); Mean Corpuscular Volume 88.8 fl (80-94); Monocytes # 2.1 10^3/uL (0.2-0.9); Monocytes % 15.3 %; Neutrophils % 74.1 %; Nucleated Red Blood Cells % 0 %; Platelet Count 128 10^3/cmm (130-400); Red Blood Count 2.95 10^6/uL (4.1-5.3); Red Cell Distribution Width 17.3 % (12.1-15.1); White Blood Count 13.5 10^3/uL (4.0-10.0)
[2022-11-18 06:23] LABS: Glucose Point of Care 163 mg/dL (70-110)
[2022-11-18 06:33] LABS: Alanine Aminotransferase 21 U/L (0-41); Albumin Level 2.9 g/dL (3.5-5.2); Alkaline Phosphatase 96 U/L (40-130); Anion Gap 15.2 (5-19); Aspartate Amino Transferase 23 U/L (0-40); Blood Urea Nitrogen 14 mg/dL (8-23); Calcium 8.3 mg/dL (8.5-10.5); Carbon Dioxide 24 mmol/L (22-29); Chloride 97 mmol/L (98-107); Globulin 2.9 g/dL (1.3-4.6); Glucose 142 mg/dL (65-115); Osmolality Calculated 279 mOsm/kg (285-295); Potassium 3.2 mmol/L (3.5-5.1); Sodium 133 mmol/L (136-145); Total Bilirubin 0.8 mg/dL (0.15-1.2); Total Protein 5.8 g/dL (6.6-8.7)
[2022-11-18] MEDS: budesonide 0.5 mg/2 mL Neb INHALATION ×2 (07:59→20:54)
--- NOTE | 2022-11-18 08:45 | PM.PN ---
Subjective Subjective: Patient is doing well. No chest pain, breathing has improved. Diuresing well. Hgb is stable. Vitals/I&O/Wt Last Vital Signs Temp 97.4 F L 11/18/22 07:33 Pulse 68 11/18/22 08:06 Resp 16 11/18/22 07:59 BP 124/41 11/18/22 07:33 Pulse Ox 97 11/18/22 07:59 O2 Del Method Nasal Cannula 11/18/22 07:59 O2 Flow Rate 3 11/18/22 07:59 11/17/22 11/18/22 11/18/22 22:59 06:59 14:59 Intake Total 830 / 1310 250 / 1560 Output Total 1999 / 1999 3000 / 3000 Balance -1170 / -690 250 / -440 -3000 / -3000 Physical Exam Narrative: GENERAL: Patient is alert, awake and oriented x3. [] NECK: No jugular vein distension. [] HEENT: No cyanosis. No icterus. No pallor. [] HEART: Regular S1 and S2. No murmur, rub or gallop. [] LUNGS: Diminished air entry. CENTRAL NERVOUS SYSTEM: Grossly nonfocal. [] EXTREMITIES: Lower extremities with no edema Urinary Catheter Management: Ortiz: Cath Placed During This Visit: yes Reason for Continuing Indwelling Catheter: Other Urinary Catheter Date of Insertion: 11/15/22 Urinary Catheter Time of Insertion: 01:42 Data 11/18/22 06:06 11/18/22 06:06 Micro: Microbiology 11/15/22 02:30 Urine Culture - Final Urine,Clean Catch A&P Assessment and plan (1) Diabetes mellitus: (2) CHF exacerbation: (3) Acute respiratory failure with hypoxia: (4) Acute exacerbation of chronic obstructive airways disease: (5) Atrial fibrillation: (6) Acidosis, lactic: (7) HTN (hypertension): (8) Chronic kidney disease (CKD), stage III (moderate): (9) Atrial fibrillation with RVR: (10) Pneumonia: (11) Anemia: (12) Aortic stenosis: (13) Ischemic cardiomyopathy: (14) NSTEMI (non-ST elevated myocardial infarction): (15) History of mitral valve replacement with bioprosthetic valve: (16) S/P CABG x 3: Plan Patient is diuresing well. Continue with diuresis for today. He is stable overall. Can be discharged home tomorrow if labs are stable. Close I&O's. Thank for involving us with care of this patient. We will continue to follow. Please call with questions Attestations Medical Necessity Statement*: Care expected to cross 2 midnights. Coding Level of Care Code Acute Code for g Fwd Diagnoses Diabetes mellitus E11.9 CHF exacerbation I50.9 Acute respiratory failure with hypoxia J96.01 Acute exacerbation of chronic obstructive airways disease J44.1 Atrial fibrillation I48.91 Acidosis, lactic E87.20 HTN (hypertension) I10 Chronic kidney disease (CKD), stage III (moderate) N18.30 Atrial fibrillation with RVR I48.91 Pneumonia J18.9 Anemia D64.9 Aortic stenosis I35.0 Ischemic cardiomyopathy I25.5 NSTEMI (non-ST elevated myocardial infarction) I21.4 History of mitral valve replacement with bioprosthetic valve Z95.3 S/P CABG x 3 Z95.1
[2022-11-18] MEDS: predniSONE 5 mg Tablet PO ×2 (08:50→17:33)
[2022-11-18] MEDS: ferrous gluconate 324 mg Tablet PO ×2 (08:50→17:33)
[2022-11-18] MEDS: amiodarone 200 mg Tablet 400 MG PO ×2 (08:50→17:33)
[2022-11-18] MEDS: aspirin 81 mg EC Tablet PO (08:50)
[2022-11-18] MEDS: docusate sodium 100 mg Capsule PO ×2 (08:50→17:33)
[2022-11-18] MEDS: insulin lispro 100 unit/1 mL SUBCUT ×3 (08:51→17:34)
[2022-11-18] MEDS: insulin glargine 100 units/1 mL 10 UNIT SUBCUT ×2 (08:51→17:34)
[2022-11-18 12:06] LABS: Glucose Point of Care 278 mg/dL (70-110)
[2022-11-18 16:35] LABS: Glucose Point of Care 219 mg/dL (70-110)
[2022-11-18] MEDS: atorvastatin 40 mg Tablet 80 MG PO (17:33)
--- NOTE | 2022-11-18 19:23 | PM.PN ---
Subjective Subjective: Patient was seen and examined this morning, shortness of breath appears to be improving. Posttransfusion H&H has been stable, Eliquis has been kept on hold. Medications: Medication Review Details: Generic Name Dose Route Start Last Admin Trade Name Frejoseline PRN Reason Stop Dose Admin Acetaminophen 650 mg 11/15/22 01:21 11/18/22 00:06 Acetaminophen 32 5 Mg Tablet PO 650 mg Q6H PRN Administration Mild/Mod Pain Or Temp >/= 101 Albuterol/Ipratrop ium 3 ml 11/15/22 08:00 11/18/22 13:34 Ipratropium-Albu terol 3 Ml Neb INHALATION 3 ml Q6H.RESP SHIELA Administration Amiodarone HCl 400 mg 11/15/22 09:00 11/18/22 17:33 Amiodarone 200 M g Tablet PO 400 mg BID SHIELA Administration Apixaban 2.5 mg 11/15/22 09:00 11/16/22 18:01 Apixaban 5 Mg Ta blet PO 2.5 mg BID SHIELA Administration Aspirin 81 mg 11/15/22 09:00 11/18/22 08:50 Aspirin 81 Mg Ec Tablet PO 81 mg DAILY SHIELA Administration Atorvastatin Calci um 80 mg 11/15/22 18:00 11/18/22 17:33 Atorvastatin 40 Mg Tablet PO 80 mg QPM SHIELA Administration Budesonide 0.5 mg 11/15/22 08:00 11/18/22 07:59 Budesonide 0.5 M g/2 Ml Neb INHALATION 0.5 mg BID.RESPIRATORY S CH Administration Docusate Sodium 100 mg 11/16/22 18:00 11/18/22 17:33 Docusate Sodium 100 Mg Capsule PO 100 mg BID SHIELA Administration Ferrous Gluconate 324 mg 11/15/22 09:00 11/18/22 17:33 Ferrous Gluconat e 324 Mg Tablet PO 324 mg BID SHIELA Administration Furosemide 40 mg 11/15/22 01:21 11/18/22 18:19 Furosemide 10 Mg /Ml Sdv 4ml IVP 40 mg Q12H SHIELA Administration Vancomycin HCl 1,0 00 mg/ 250 mls @ 250 mls /hr 11/15/22 23:00 11/17/22 23:58 Sodium Chloride IV Infused Q24H SHIELA Infusion Insulin Glargine 10 unit 11/15/22 09:00 11/18/22 17:34 Insulin Glargine 100 Units/1 Ml SUBCUT 10 unit BID SHIELA Administration Insulin Human Lisp ro 0 unit 11/15/22 08:00 11/18/22 17:34 Insulin Lispro 1 00 Unit/1 Ml SUBCUT 6 unit TIDWM SHIELA Administration Protocol Metoprolol Tartrat e 12.5 mg 11/15/22 01:21 11/18/22 12:24 Metoprolol Tartr ate 25 Mg Tablet PO 12.5 mg Q12H SHIELA Administration Pantoprazole Sodiu m 40 mg 11/15/22 01:21 11/18/22 01:22 Pantoprazole 40 Mg Sdv IVP 40 mg Q24H SHIELA Administration Prednisone 5 mg 11/15/22 09:00 11/18/22 17:33 Prednisone 5 Mg Tablet PO 5 mg BID SHIELA Administration Vitals/I&O/Wt Last Vital Signs Temp 97.7 F 11/18/22 12:00 Pulse 67 11/18/22 16:00 Resp 16 11/18/22 16:00 BP 123/57 11/18/22 16:00 Pulse Ox 96 11/18/22 16:00 O2 Del Method Nasal Cannula 11/18/22 13:34 O2 Flow Rate 4 11/18/22 13:34 11/18/22 11/18/22 11/18/22 06:59 14:59 22:59 Intake Total 250 / 1560 240 / 240 Output Total 3000 / 3000 Balance 250 / -440 -2760 / -2760 Physical Exam Const: COMMON NORMALS: patient oriented x3 HENMT: COMMON NORMALS: normocephalic and atraumatic HEAD & SCALP: normocephalic and atraumatic Resp: COMMON NORMALS: clear to auscultation bilaterally EFFORT & INSPECTION: Yes symmetric chest movement AUSCULTATION: clear to auscultation bilaterally Cardio: COMMON NORMALS: regular rate, regular rhythm, S1 normal heart sound present, S2 normal heart sound present, No gallops present (Cardio), No murmurs present (Cardio), No rub (Cardio) and Peripheral pulses 2+ throughout RATE: regular rate RHYTHM: regular rhythm HEART SOUNDS: S1 normal heart sound present and S2 normal heart sound present PERIPHERAL PULSES: Peripheral pulses 2+ throughout GI: COMMON NORMALS: Normal to inspection, nondistended, normoactive bowel sounds present, Soft to palpation, non-tender, No hepatosplenomegaly present and no masses AUSCULTATION: Yes normoactive bowel sounds PALPATION: Yes Soft to palpation and Yes No hepatosplenomegaly present RECTAL EXAM: Yes deferred Extremity: COMMON NORMALS: no clubbing, cyanosis or edema and no pedal edema Neuro: COMMON NORMALS: patient oriented x3 Urinary Catheter Management: Ortiz: Cath Placed During This Visit: yes, but has since been removed by the nurse Reason for Continuing Indwelling Catheter: Other Urinary Catheter Date of Insertion: 11/15/22 Urinary Catheter Time of Insertion: 01:42 Date Urinary Catheter Removed: 11/18/22 Time Urinary Catheter Discontinued: 16:00 Data 11/18/22 06:06 11/18/22 06:06 A&P Assessment and plan (1) Acute respiratory failure with hypoxia: (2) HTN (hypertension): (3) Acidosis, lactic: (4) Chronic kidney disease (CKD), stage III (moderate): (5) Pneumonia: (6) COPD (chronic obstructive pulmonary disease): Qualifiers: COPD type: unspecified COPD Qualified Code(s): J44.9 - Chronic obstructive pulmonary disease, unspecified (7) CHF exacerbation: (8) Diabetes mellitus: (9) Sepsis: Plan 77 year old male with PMH of ?COPD, atrial fibrillation, coronary artery disease, diabetes mellitus, hypertension, ischemic cardiomyopathy, HFrEF,moderate aortic stenosis came in with chief complaint of Shortness of breath, he was recently discharged from the hospital after being managed for respiratory failure with hypoxia secondary to staph pneumonia. He was discharged on p.o. Augmentin, was readmitted next day, On the last admission he was offered to go to SNF, before returning to him, to continue with, rehabilitation, but patient decided against it, this time he is agreeable to go to SNF, for continued management. Assessment Acute on chronic respiratory failure with hypoxia: Possibly secondary to pneumonia, acute flash pulmonary edema versus possible aspiration CTA Chest : Negative for pulmonary embolism,Patchy bilateral airspace infiltrates. Emphysematous changes. Bibasilar bronchiectasis. Lower extremity Doppler vein is negative for DVT Blood culture negative till date Prior sputum culture: MSSA Currently he is on vancomycin, cefepime has been discontinued. Currently saturating well on 3 L supplemental oxygen through nasal cannula Aspiration precaution SPL evaluation completed: Currently on dysphagia level 4 diet Ac on chronic decompensated heart failure with reduced ejection fraction: Most recent 2D echo reviewed: Continue Lasix 40 IV twice daily Intake output charting Daily weight Monitor electrolytes Continue telemetry monitoring Pneumonia: -As above aspiration versus worsening of underlying pneumonia -Sputum cultures, blood cultures Non-ST elevation MS: -First EKG shows junctional rhythm, troponin 366, repeat EKG no acute ST-T wave changes, troponin trending downwards -During his last hospitalization he can lie flat for consideration of angio, possibility of which was considered during this hospital stay, butGiven his dropping H&H, currently conservative medical management has been undertaken. Cardiology on board Atrial fibrillation: Continue amiodarone 400 mg p.o. twice daily Was on Eliquis for anticoagulation, has been discontinued because of concerns for GI bleed. -History of anemia: -Positive FOBT Given the fact that the H&H is dropping, with positive FOBT requiring the need for transfusion, Eliquis has been discontinued currently, risk and benefit of being off anticoagulation has been explained to the patient, patient currently wants to continue with conservative medical management, which includes being on Protonix, being off anticoagulation, transfusion as needed, he is not agreeable for any EGD and colonoscopy currently. Current plan is to transfuse him 1 unit PRBC, monitor H&H. COPD does not seem acute in exacerbation monitor CKD stage III monitor Hyperglycemia, insulin sliding scale, Lantus Pseudohyponatremia secondary hyperglycemia Worsening leukocytosis as above Lactic acidosis, likely multifactorial from pulmonary edema, acute flash pulm edema, pneumonia, aspiration event, will monitor Sepsis, secondary to pneumonia with evidence of lactic acidosis, elevated white count, source of infection. Disposition: Patient was accepted at SNF, at [place], given the fact that it is far from his home, and he has shown improvement in his shortness of breath, he wants to go home.Patient was advised to go to SNF As there has been [id number] admissions recently, but currently wants to go home. Attestations Medical Necessity Statement*: Needs to be in hospital for IV diuresis. Coding Level of Care Code 48809 Diagnoses Acute respiratory failure with hypoxia J96.01 HTN (hypertension) I10 Acidosis, lactic E87.20 Chronic kidney disease (CKD), stage III (moderate) N18.30 Pneumonia J18.9 COPD (chronic obstructive pulmonary disease) J44.9 COPD type: unspecified COPD CHF exacerbation I50.9 Diabetes mellitus E11.9 Sepsis A41.9
[2022-11-18] MEDS: vancomycin 1,000 MG in sodium chloride 0.9% 250 ML 250 MG IV (22:03)
[2022-11-19] VITALS (8 sets, daily range): BP systolic 121–137; BP diastolic 59–76; PULSE 51–79; RESP 16–18; TEMP 36.6–37.2; O2SAT 94–99
[2022-11-19] MEDS: acetaminophen 325 mg Tablet 650 MG PO (00:03)
[2022-11-19] MEDS: ipratropium-albuterol 3 mL Neb INHALATION ×2 (02:26→07:28)
[2022-11-19] MEDS: FUROsemide 10 mg/mL SDV 4mL 40 MG IVP (05:12)
[2022-11-19] MEDS: pantoprazole 40 mg SDV IVP (05:12)
[2022-11-19] MEDS: metoprolol tartrate 25 mg Tablet 12.5 MG PO (05:13)
[2022-11-19 06:22] LABS: Glucose Point of Care 168 mg/dL (70-110)
[2022-11-19] MEDS: budesonide 0.5 mg/2 mL Neb INHALATION (07:28)
--- NOTE | 2022-11-19 07:32 | PM.PN ---
Subjective Subjective: Patient feeling better. Breathing has improved. Vitals/I&O/Wt Last Vital Signs Temp 97.9 F 11/19/22 04:00 Pulse 75 11/19/22 07:28 Resp 16 11/19/22 07:28 BP 137/60 11/19/22 04:00 Pulse Ox 94 11/19/22 07:28 O2 Del Method Nasal Cannula 11/19/22 07:28 O2 Flow Rate 4 11/19/22 02:26 FiO2 4 11/19/22 07:28 11/18/22 11/19/22 11/19/22 22:59 06:59 14:59 Intake Total 250 / 490 Output Total 250 / 3250 1000 / 4250 Balance -250 / -3010 -750 / -3760 Physical Exam Narrative: GENERAL: Patient is alert, awake and oriented x3. [] NECK: No jugular vein distension. [] HEENT: No cyanosis. No icterus. No pallor. [] HEART: Regular S1 and S2. No murmur, rub or gallop. [] LUNGS: Diminished air entry. CENTRAL NERVOUS SYSTEM: Grossly nonfocal. [] EXTREMITIES: Lower extremities with no edema Urinary Catheter Management: Ortiz: Cath Placed During This Visit: yes, but has since been removed by the nurse Reason for Continuing Indwelling Catheter: Other Urinary Catheter Date of Insertion: 11/15/22 Urinary Catheter Time of Insertion: 01:42 Date Urinary Catheter Removed: 11/18/22 Time Urinary Catheter Discontinued: 16:00 Data 11/18/22 06:06 11/18/22 06:06 A&P Assessment and plan (1) Diabetes mellitus: (2) CHF exacerbation: (3) Acute respiratory failure with hypoxia: (4) Acute exacerbation of chronic obstructive airways disease: (5) Atrial fibrillation: (6) Acidosis, lactic: (7) HTN (hypertension): (8) Chronic kidney disease (CKD), stage III (moderate): (9) Atrial fibrillation with RVR: (10) Pneumonia: (11) Anemia: (12) Aortic stenosis: (13) Ischemic cardiomyopathy: (14) NSTEMI (non-ST elevated myocardial infarction): (15) History of mitral valve replacement with bioprosthetic valve: (16) S/P CABG x 3: Plan Patient has improved significantly. Continue p.o. Lasix. Thank for involving us with care of this patient. Patient is stable to be dicharged from cardiology standpoint. Please call with questions Attestations Medical Necessity Statement*: Care expected to cross 2 midnights. Coding Level of Care Code Acute Code for g Fwd Diagnoses Diabetes mellitus E11.9 CHF exacerbation I50.9 Acute respiratory failure with hypoxia J96.01 Acute exacerbation of chronic obstructive airways disease J44.1 Atrial fibrillation I48.91 Acidosis, lactic E87.20 HTN (hypertension) I10 Chronic kidney disease (CKD), stage III (moderate) N18.30 Atrial fibrillation with RVR I48.91 Pneumonia J18.9 Anemia D64.9 Aortic stenosis I35.0 Ischemic cardiomyopathy I25.5 NSTEMI (non-ST elevated myocardial infarction) I21.4 History of mitral valve replacement with bioprosthetic valve Z95.3 S/P CABG x 3 Z95.1
[2022-11-19] MEDS: predniSONE 5 mg Tablet PO (07:36)
[2022-11-19] MEDS: docusate sodium 100 mg Capsule PO (07:36)
[2022-11-19] MEDS: ferrous gluconate 324 mg Tablet PO (07:37)
[2022-11-19] MEDS: amiodarone 200 mg Tablet 400 MG PO (07:37)
[2022-11-19] MEDS: aspirin 81 mg EC Tablet PO (07:37)
[2022-11-19] MEDS: insulin lispro 100 unit/1 mL SUBCUT (07:37)
[2022-11-19] MEDS: insulin glargine 100 units/1 mL 10 UNIT SUBCUT (07:40)
--- NOTE | 2022-11-19 09:26 | PM.DCS ---
Discharge Providers Date of Admission: 11/14/22 23:23 Date of Discharge: November 19, 2022 Attending Provider at Admission: Donnie Harrell MD Attending Provider at Discharge: Yung Morrison MD Primary Care Provider: Paola Moore MD Diagnoses at Discharge Discharge Diagnosis (1) Diabetes mellitus: Status: Acute (2) CHF exacerbation: Status: Acute (3) Acute respiratory failure with hypoxia: Status: Acute (4) Acute exacerbation of chronic obstructive airways disease: Status: Acute (5) Atrial fibrillation: Status: Acute (6) Acidosis, lactic: Status: Acute (7) HTN (hypertension): Status: Acute (8) Chronic kidney disease (CKD), stage III (moderate): Status: Acute (9) Atrial fibrillation with RVR: Status: Acute (10) Pneumonia: Status: Acute (11) Anemia: Status: Acute (12) Aortic stenosis: Status: Acute (13) Ischemic cardiomyopathy: Status: Acute (14) NSTEMI (non-ST elevated myocardial infarction): Status: Acute (15) History of mitral valve replacement with bioprosthetic valve: Status: Acute (16) S/P CABG x 3: Status: Acute Reason for Visit Reason for Visit: SOB Hospital Course Hospital Course 77 year old male with PMH of ?COPD, atrial fibrillation, coronary artery disease, diabetes mellitus, hypertension, ischemic cardiomyopathy, HFrEF,moderate aortic stenosis came in with chief complaint of Shortness of breath, he was recently discharged from the hospital after being managed for respiratory failure with hypoxia secondary to staph pneumonia. He was discharged on p.o. Augmentin, was readmitted next day,On the last admission he was offered to go to SNF, before returning to him, to continue with, rehabilitation, but patient decided against?it. Patient was agreeable to go to SNF at this time a bed was also found in a nursing facility [facility], but he decided not to go to there as it is too far from his home.During the hospital stay patient was managed for Acute on chronic respiratory failure with hypoxia: Possibly secondary to pneumonia, acute flash pulmonary edema versus possible aspiration CTA Chest : Negative for pulmonary embolism,Patchy bilateral airspace infiltrates. Emphysematous changes. Bibasilar bronchiectasis.Lower extremity Doppler vein is negative for DVT,Blood culture negative.Prior sputum culture: MSSA. Patient was kept on broad-spectrum antibiotics during the hospital stay,he was discharged on on Augmentin for another 7 days to complete the antibiotic course for pneumonia.During hospital stay patient was also managed for Ac on chronic decompensated heart failure with reduced ejection fraction he responded well to IV diuresis He was discharged on Lasix p.o. 40 twice daily, during the hospital stay patient was also managed for NSTEMI, he was Medically managed, no angiogram was pursued, as the patient has history of anemia with positive FOBT, requiring blood transfusion, he also required blood transfusion during this hospital stay, and patient was not interested in continue with any aggressive intervention program for NSTEMI. He was also managed for A-fib was continued on p.o. amiodarone plus metoprolol, initially he was kept on anticoagulation with Eliquis, but given the fact that he is FOBT was positive, he required blood transfusion during the hospital stay, was not interested in getting EGD or colonoscopy, agreed not to continue with anticoagulation, risk and benefit of not being on anticoagulation was explained.Patient verbalized understanding. Also managed for sepsis secondary to pneumonia, he was on broad-spectrum antibiotic. Overall patient responded well to above medical management and was discharged stable condition to home, he will continue to follow cardiology as well as PCP as outpatient. Physical Exam Const: COMMON NORMALS: patient oriented x3 HENMT: COMMON NORMALS: normocephalic and atraumatic HEAD & SCALP: normocephalic and atraumatic Resp: COMMON NORMALS: clear to auscultation bilaterally EFFORT & INSPECTION: Yes symmetric chest movement AUSCULTATION: clear to auscultation bilaterally Cardio: COMMON NORMALS: regular rate, regular rhythm, S1 normal heart sound present, S2 normal heart sound present, No gallops present (Cardio), No murmurs present (Cardio), No rub (Cardio) and Peripheral pulses 2+ throughout RATE: regular rate RHYTHM: regular rhythm HEART SOUNDS: S1 normal heart sound present and S2 normal heart sound present PERIPHERAL PULSES: Peripheral pulses 2+ throughout GI: COMMON NORMALS: Normal to inspection, nondistended, normoactive bowel sounds present, Soft to palpation, non-tender, No hepatosplenomegaly present and no masses AUSCULTATION: Yes normoactive bowel sounds PALPATION: Yes Soft to palpation and Yes No hepatosplenomegaly present RECTAL EXAM: Yes deferred Extremity: COMMON NORMALS: no clubbing, cyanosis or edema and no pedal edema Neuro: COMMON NORMALS: patient oriented x3 Urinary Catheter Management: Ortiz: Cath Placed During This Visit: yes, but has since been removed by the nurse Reason for Continuing Indwelling Catheter: Other Urinary Catheter Date of Insertion: 11/15/22 Urinary Catheter Time of Insertion: 01:42 Date Urinary Catheter Removed: 11/18/22 Time Urinary Catheter Discontinued: 16:00 Discharge Data Studies Completed and Pending Completed Studies During Hospitalization Category Date Time Status CTA chest CT abdomen pelvis [CT angio chest w abd pel w Cat Scan 11/14/22 22:23 Completed con] Stat XR chest 1V portable [id number] Stat Exams 11/14/22 20:47 [place] [id number] Routine Ultrasound 11/15/22 01:21 Completed Pending at discharge Category Date Time Status Blood Culture Stat Lab 11/14/22 21:23 Results CBC Auto Diff [Complete Blood Count w/Auto] Routine Lab 11/19/22 08:15 Ordered Sputum Culture and Gram Stain Stat Lab 11/15/22 00:59 Uncollected Radiology Impressions Chest X-Ray 11/14/22 20:47 IMPRESSION: Persisting bilateral infiltrates consistent with pneumonitis Chest/Abdomen/Pelvis CT 11/14/22 22:23 IMPRESSION: 1. Negative for pulmonary embolus. 2. Patchy bilateral airspace infiltrates. 3. Scattered prominent mediastinal lymph nodes measuring up to 17 mm, nonspecific. 4. Sternotomy wires. 5. Cardiomegaly. 6. Coronary artery atherosclerotic calcifications. Sign trace bilateral pleural effusions. 7. Emphysematous changes. 8. Bibasilar bronchiectasis. IMPRESSION: 1. Negative for acute inflammatory process in the abdomen or pelvis. 2. Right kidney cyst, negative for follow-up advised. 3. Air in the urinary bladder may be iatrogenic, please correlate clinically. 4. Fusiform infrarenal abdominal aortic aneurysm measuring 3 cm in diameter without rupture. 5. Right kidney cyst, negative for follow-up advised. 6. Constipation. 7. Proximal superior mesenteric and bilateral renal artery atherosclerotic calcifications with suspected 70 to 80% luminal narrowing with contrast seen distally. COMMENTS: Consistent with the [employer] [place] [employer]'s Incidental Findings Committee white paper (J Am Kyara Radiol 2018): Any incidental renal lesion less than 1 cm or classified as too small to characterize, or any incidental cystic renal lesion characterized as simple-appearing, is likely benign. No follow-up imaging is recommended for these lesions per consensus recommendations based on imaging criteria. Venous Duplex 11/15/22 01:21 IMPRESSION: 1. No evidence of deep vein thrombosis. 2. There is a hypoechoic collection in the left popliteal fossa measuring up to 4.2 cm, which may reflect a Andino's cyst, though this could be further evaluated with MRI. Laboratory Results WBC 13.5 10^3/uL (4.0-10.0) H 11/18/22 06:06 RBC 2.95 10^6/uL (4.1-5.3) L 11/18/22 06:06 Hgb 8.2 g/dL (11.7-16.6) L 11/18/22 06:06 Hct 26.2 % (42.0-52.0) L 11/18/22 06:06 MCV 88.8 fl (80-94) 11/18/22 06:06 MCH 27.8 pg (28.0-34.0) L 11/18/22 06:06 MCHC 31.3 g/dL (30.0-36.0) 11/18/22 06:06 RDW 17.3 % (12.1-15.1) H 11/18/22 06:06 Plt Count 128 10^3/cmm (130-400) L 11/18/22 06:06 MPV 12.0 fL (7.4-10.4) H 11/18/22 06:06 Neut % (Auto) 74.1 % 11/18/22 06:06 Lymph % (Auto) 5.5 % 11/18/22 06:06 Mora % (Auto) 15.3 % 11/18/22 06:06 Eos % (Auto) 0.1 % 11/18/22 06:06 Baso % (Auto) 0.0 % 11/18/22 06:06 Neut # (Auto) 10.00 10^3/uL (1.8-7.7) H 11/18/22 06:06 Lymph # (Auto) 0.7 10^3/uL (0.8-4.8) L 11/18/22 06:06 Mora # (Auto) 2.1 10^3/uL (0.2-0.9) H 11/18/22 06:06 Eos # (Auto) 0.0 10^3/uL (0.0-0.8) 11/18/22 06:06 Baso # (Auto) 0.0 10^3/uL (0.0-0.1) 11/18/22 06:06 Nucleated RBC % (auto) 0 % 11/18/22 06:06 Total Counted 100 (0-100) 11/14/22 21:00 Atypical Lymphs % 0.0 % (0-5) 11/14/22 21:00 Absolute Neutrophils 12.1 10^3/cmm (1.4-6.5) H 11/14/22 21:00 Segmented Neutrophils 74 % 11/14/22 21:00 Abs Segm Neuts (Man) 11.6 10/cmm (1.6-7.1) H 11/14/22 21:00 Band Neutrophils 3.0 % 11/14/22 21:00 Abs Band Neuts (Man) 0.5 10^3/cmm (0.0-1.2) 11/14/22 21:00 Absolute Lymphocytes 0.3 10^3/cmm (1.2-3.4) L 11/14/22 21:00 Lymphocytes (Manual) 2 % 11/14/22 21:00 Monocytes (Manual) 16.0 % 11/14/22 21:00 Absolute Monocytes 2.5 10^3/cmm (0.1-0.6) H 11/14/22 21:00 Eosinophils (Manual) 0 % 11/14/22 21:00 Absolute Eosinophils 0.0 10^3/cmm (0.0-0.7) 11/14/22 21:00 Basophils (Manual) 0.0 % 11/14/22 21:00 Absolute Basophils 0.0 10^3/cmm (0.0-0.2) 11/14/22 21:00 Metamyelocytes 5.0 % 11/14/22 21:00 Nucleated RBCs # 0.0 /100WBC 11/18/22 06:06 Platelet Estimate Normal (Normal) 11/14/22 21:00 Polychromasia Trace 11/14/22 21:00 Anisocytosis 2+ H 11/14/22 21:00 Macrocytosis 2+ H 11/14/22 21:00 Bulmaro Cells 1+ H 11/14/22 21:00 PT 14.90 SECONDS (12.1-14.9) 11/14/22 21:00 INR 1.13 (0.8-1.2) 11/14/22 21:00 APTT 30.6 SECONDS (23.9-36.7) 11/14/22 21:00 Specimen Type Arterial 11/14/22 20:47 Sample Site Radial, right 11/14/22 20:47 ABG pH 7.41 (7.35-7.45) 11/14/22 20:47 ABG pCO2 28.1 mmHg (35-45) L 11/14/22 20:47 ABG pO2 59.3 mmHg (80.0-100.0) L 11/14/22 20:47 ABG HCO3 17.9 mmol/L (22-26) L 11/14/22 20:47 ABG Base Excess -5.9 mmol/L (-2.0-2.0) L 11/14/22 20:47 Lei Test Pos 11/14/22 20:47 Hematocrit 24.1 % (42-52) L 11/14/22 20:47 O2 Delivery Device Nc 11/14/22 20:47 O2 Liters/Min 3.5 % 11/14/22 20:47 Inside Polisher ID oscar 11/14/22 20:47 Sodium 133 mmol/L (136-145) L 11/18/22 06:06 Potassium 3.2 mmol/L (3.5-5.1) L 11/18/22 06:06 Chloride 97 mmol/L (98-107) L 11/18/22 06:06 Carbon Dioxide 24 mmol/L (22-29) 11/18/22 06:06 Anion Gap 15.2 (5-19) 11/18/22 06:06 BUN 14 mg/dL (8-23) 11/18/22 06:06 Creatinine 1.1 mg/dL (0.7-1.2) 11/18/22 06:06 GFR Calculation Not Reportable 11/18/22 06:06 Glucose 142 mg/dL (65-115) H 11/18/22 06:06 POC Glucose 168 mg/dL (70-110) H 11/19/22 06:05 Calculated Osmolality 279 mOsm/kg (285-295) L 11/18/22 06:06 Lactic Acid 2.3 mmol/L (0.5-2.2) H 11/16/22 04:55 Lactic Acid (Sepsis) 1.3 mmol/L (0.5-2.2) 11/16/22 07:52 Calcium 8.3 mg/dL (8.5-10.5) L 11/18/22 06:06 Magnesium 1.9 mg/dL (1.7-2.3) 11/17/22 04:50 Total Bilirubin 0.8 mg/dL (0.15-1.2) 11/18/22 06:06 AST 23 U/L (0-40) 11/18/22 06:06 ALT 21 U/L (0-41) 11/18/22 06:06 Alkaline Phosphatase 96 U/L (40-130) 11/18/22 06:06 Troponin T Baseline 335 ng/L (0-15) H* 11/14/22 21:00 Troponin T 120 Minute 313.2 ng/L (0-15) H 11/14/22 23:15 Delta Troponin T -21.8 ABS# (0-10) L 11/14/22 23:15 Troponin T Hi Sens 6Hr 288.8 ng/L (0-15) H 11/15/22 04:15 Troponin T Hi Sens 6Hr Delta -46.2 ng/L (0-12) L 11/15/22 04:15 C-Reactive Protein 82.8 mg/L (0.0-4.9) H 11/14/22 21:00 NT-Pro-B Natriuret Pep 6065 pg/mL (0-450) H 11/15/22 04:15 Total Protein 5.8 g/dL (6.6-8.7) L 11/18/22 06:06 Albumin 2.9 g/dL (3.5-5.2) L 11/18/22 06:06 Globulin 2.9 g/dL (1.3-4.6) 11/18/22 06:06 Procalcitonin 0.17 ng/mL (0-0.5) 11/14/22 21:00 TSH 1.02 uIU/mL (0.27-4.20) 11/15/22 04:15 Urine Color Yellow (Yellow) 11/15/22 02:30 Urine Appearance Clear (CLEAR) 11/15/22 02:30 Urine pH 5 (5-7) 11/15/22 02:30 Ur Specific [place] 1.015 (1.005-1.030) 11/15/22 02:30 Urine Protein Neg (Negative) 11/15/22 02:30 Urine Glucose (UA) 4+ (Normal) H 11/15/22 02:30 Urine Ketones 1+ (Negative) H 11/15/22 02:30 Urine Blood 3+ (Negative) H 11/15/22 02:30 Urine Nitrate Negative (Negative) 11/15/22 02:30 Urine Bilirubin Neg (Negative) 11/15/22 02:30 Urine Urobilinogen Norm mg/dL (Negative) 11/15/22 02:30 Ur Leukocyte Esterase Negative (Negative) 11/15/22 02:30 Urine RBC 25-40 /hpf (0-2) H 11/15/22 02:30 Urine WBC 0-4 /hpf (0-5) H 11/15/22 02:30 Ur Squamous Epith Cells 0-4 /hpf (0-5) H 11/15/22 02:30 Amorphous Sediment Not Reportable 11/15/22 02:30 Urine Bacteria Trace /hpf (NONE) 11/15/22 02:30 Nasal Influ A H1 2009 PCR Not detected (NOT DETECT) 11/14/22 22:18 Vancomycin Trough 16.3 ug/mL (10-15) H 11/17/22 22:02 Serum Ketones Negative (Negative) 11/14/22 21:00 Adenovirus (PCR) Not detected (NOT DETECT) 11/14/22 22:18 C. pneumoniae DNA (PCR) Not detected (NOT DETECT) 11/14/22 22:18 Coronavirus 229E (PCR) Not detected (NOT DETECT) 11/14/22 22:18 Human Metapneumovir PCR Not detected (NOT DETECT) 11/14/22 22:18 Influenza A (H1) PCR Not detected (NOT DETECT) 11/14/22 22:18 Influenza A (H3) PCR Not detected (NOT DETECT) 11/14/22 22:18 Influenza Type A (PCR) Not detected (NOT DETECT) 11/14/22 22:18 Influenza Type B (PCR) Not detected (NOT DETECT) 11/14/22 22:18 M. pneumoniae (PCR) Not detected (NOT DETECT) 11/14/22 22:18 Parainfluenza 1 (PCR) Not detected (NOT DETECT) 11/14/22 22:18 Parainfluenza 2 (PCR) Not detected (NOT DETECT) 11/14/22 22:18 Parainfluenza 3 (PCR) Not detected (NOT DETECT) 11/14/22 22:18 Parainfluenza 4 (PCR) Not detected (NOT DETECT) 11/14/22 22:18 RSV Type A (PCR) Not detected (NOT DETECT) 11/14/22 22:18 RSV Type B (PCR) Not detected (NOT DETECT) 11/14/22 22:18 Entero/Rhino (PCR) Not detected (NOT DETECT) 11/14/22 22:18 SARS-CoV-2 (PCR) Not detected (NOT DETECT) 11/14/22 22:18 Blood Type O Negative 11/17/22 06:29 Rho(D) Type Negative 11/17/22 06:29 Antibody Screen Not Reportable 11/17/22 06:29 PEG Antibody Screen Negative 11/17/22 06:29 Antigen Identification C Antigen - NEGATIVE 11/17/22 06:29 Crossmatch See Detail 11/17/22 06:29 Vitals Last Vital Signs Temp 97.9 F 11/19/22 08:00 Pulse 51 L 11/19/22 08:00 Resp 16 11/19/22 08:00 BP 121/76 11/19/22 08:00 Pulse Ox 99 11/19/22 08:00 O2 Del Method Nasal Cannula 11/19/22 07:28 O2 Flow Rate 4 11/19/22 02:26 FiO2 4 11/19/22 07:28 Discharge Plan Discharge Patient Disposition: Home Condition: Stable Prescriptions: New amiodarone 200 mg tablet 200 mg PO BID Qty: 60 3RF Lasix 40 mg tablet 40 mg PO BID Qty: 60 3RF Klor-Con M20 20 mEq tablet,ER particles/crystals 20 meq PO BID Qty: 60 0RF Augmentin 500-125 mg tablet 1 tab PO BID 7 Days Qty: 14 0RF Continued omeprazole 40 mg Capsule,Delayed Release(Dr/Ec) 40 mg PO BID docusate sodium 100 mg Capsule 200 mg PO BEDTIME cholecalciferol (vitamin D3) [Vitamin D3] 25 mcg (1,000 unit) Capsule 25 mcg PO DAILY fluticasone propion-salmeterol [Advair Diskus] 100-50 mcg/dose Blister With Device 1 inh INHALATION BID carboxymethylcellulose sodium [Refresh Liquigel] 1 % Drops, Liquid Gel 1 drp OPHTHALMIC (EYE) BID PRN (Reason: Dry Eye(S)) Combivent Respimat 20-100 mcg/actuation Mist 1 puff INHALATION Q6H PRN (Reason: Shortness Of Breath) ipratropium-albuterol 0.5 mg-3 mg(2.5 mg base)/3 mL solution for nebulization 3 ml inhalation Q4H PRN (Reason: shortness of breath or wheezing) Qty: 90 0RF albuterol sulfate 90 mcg/actuation HFA aerosol inhaler 2 inh inhalation Q4H PRN (Reason: shortness of breath or wheezing) Qty: 8.5 0RF atorvastatin 80 mg Tablet 80 mg PO QPM glimepiride 4 mg Tablet 2 mg PO QAM insulin glargine [Lantus Solostar U-100 Insulin] 100 unit/mL (3 mL) insulin pen 10 unit SUBCUT BID aspirin 81 mg Tablet,Delayed Release (Dr/Ec) 81 mg PO DAILY Qty: 0 0RF metoprolol tartrate 25 mg Tablet 12.5 mg PO Q12H 30 Days Qty: 30 2RF prednisone 5 mg tablets,dose pack 5 mg PO BID 6 Days Qty: 12 0RF Rx Instructions: take 5mg po daily for 3 days, then reduce to 2.5 mg (half pill) for 3 days, then stop Atrovent HFA 17 mcg/actuation Hfa Aerosol Inhaler 2 puff INHALATION TID multivitamin Tablet 1 tab PO DAILY hydralazine 25 mg Tablet 25 mg PO BID amlodipine 10 mg Tablet 10 mg PO DAILY [id number]-tklwronszr-jciqzkqya 3.5-400-10,000 yr-zbrn-aohl/g Ointment 1 applic OPHTHALMIC (EYE) TID neomycin-polymyxin B-dexameth 3.5 mg/g-10,000 unit/g-0.1 % Ointment See Rx Instructions .ROUTE .COMPLEX Rx Instructions: apply 1 inch ribbion to affected eye as directed at bedtime use 3 times a day after surgery Discontinued furosemide [Lasix] 40 mg Tablet 40 mg PO QAM Hold Instructions: Resume on 09/17/22. Eliquis 5 mg Tablet 2.5 mg PO BID Qty: 30 0RF Hold Instructions: Resume on 11/21/22. hold until follow up with PCP amoxicillin-pot clavulanate 875-125 mg tablet 1 tab PO BID 4 Days Qty: 8 0RF amiodarone 200 mg Tablet See Rx Instructions .ROUTE .COMPLEX Rx Instructions: 400mg po bid for 7 days then change to 400mg po daily Discharge Orders: Discharge Order (Routine); Ordered 11/19/22 Ordered By: Yung Morrison Referrals: Paola Moore MD [Primary Care Provider] - 4-7 days (Your information was faxed to [facility] for an appointment. They should call you with an appointment. If you haven't heard from them by Wednesday please give them a call.) Patient Instructions: Furosemide (By mouth), Amiodarone (By mouth), Heart Attack (DC), Heart Failure (ED), CHF Stoplight, Opioid Safety Discharge Attestations Time Spent in Discharge Care*: less than 30 min Quality Metrics Clinical Quality Measures [ No reported AMI, CVA or VTE this stay] Coding Level of Care Code Acute Code for g Fwd Diagnoses Diabetes mellitus E11.9 CHF exacerbation I50.9 Acute respiratory failure with hypoxia J96.01 Acute exacerbation of chronic obstructive airways disease J44.1 Atrial fibrillation I48.91 Acidosis, lactic E87.20 HTN (hypertension) I10 Chronic kidney disease (CKD), stage III (moderate) N18.30 Atrial fibrillation with RVR I48.91 Pneumonia J18.9 Anemia D64.9 Aortic stenosis I35.0 Ischemic cardiomyopathy I25.5 NSTEMI (non-ST elevated myocardial infarction) I21.4 History of mitral valve replacement with bioprosthetic valve Z95.3 S/P CABG x 3 Z95.1
--- NOTE | 2022-11-19 11:07 | PC.SOCIAL ---
Imm update Imm updated with patient at bedside. Copy of page 2 provided. Patient verbalized understanding. Copy in chart initialed, dated and timed.
--- NOTE | 2022-11-19 11:38 | PC.NURSE ---
1130 - IVs removed. Paperwork and education completed for discharge. Awaiting transport.
[2022-11-19 12:02] LABS: Glucose Point of Care 258 mg/dL (70-110)
--- NOTE | 2022-11-19 12:07 | PC.OT ---
OT TREATMENT HELD THIS DATE DUE TO SCHEDULED PATIENT D/C TODAY.
== END 2022-11-19 13:03 | disposition home health service (06) | DRG 871 ==
LOC: ER 23:26 → MEDSURG 23:59 → ICU 11-15 00:11 → MEDSURG 11-16 20:45
PROVIDERS: Student in an Organized Health Care Education/Training Program; Admitting Provider Family Medicine; Emergency Provider Emergency Medicine; PCP Family Medicine; Visit Provider Internal Medicine
DX: A41.2 Sepsis due to unspecified staphylococcus (principal); I21.4 Non-ST elevation (NSTEMI) myocardial infarction; J15.20 Pneumonia due to staphylococcus, unspecified; I50.23 Acute on chronic systolic (congestive) heart failure; J96.21 Acute and chronic respiratory failure with hypoxia; J44.0 Chronic obstructive pulmonary disease with (acute) lower respiratory infection; I13.0 Hypertensive heart and chronic kidney disease with heart failure and stage 1 through stage 4 chronic kidney disease, or unspecified chronic kidney disease; E87.1 Hypo-osmolality and hyponatremia; E87.20 Acidosis, unspecified; I48.91 Unspecified atrial fibrillation; I25.10 Atherosclerotic heart disease of native coronary artery without angina pectoris; Z95.5 Presence of coronary angioplasty implant and graft; N18.30 Chronic kidney disease, stage 3 unspecified; E11.22 Type 2 diabetes mellitus with diabetic chronic kidney disease; E11.65 Type 2 diabetes mellitus with hyperglycemia; I25.5 Ischemic cardiomyopathy; I35.0 Nonrheumatic aortic (valve) stenosis; R19.5 Other fecal abnormalities; Z79.51 Long term (current) use of inhaled steroids; Z79.84 Long term (current) use of oral hypoglycemic drugs; Z79.82 Long term (current) use of aspirin; Z79.52 Long term (current) use of systemic steroids; Z79.4 Long term (current) use of insulin; K59.00 Constipation, unspecified; Z87.891 Personal history of nicotine dependence; Z95.3 Presence of xenogenic heart valve; D63.1 Anemia in chronic kidney disease
CPT/HCPCS: 36415; 36416; 36430; 36600; 51702; 71045; 71275; 74177; 80048; 80053; 80202; 80503; 81001; 82009; 82803; 82962; 83605; 83735; 83880; 84145; 84443; 84484; 85007; 85025; 85610; 85730; 86140; 86850; 86900; 86902; 86920; 87040; 87086; 87486; 87581; 87633; 92507; 92523; 92526; 92610; 93005; 93970; 94640; 94664; 96365; 96367; 96372; 96376; 97110; 97116; 97161; 97166; 97530; 97535; 99285; C9113; J0692; J1815; J1940; J2543; J3370; J7040; J7050; J7512; J7613; J7626; P9016; Q9967

== ENCOUNTER 2022-11-20 11:58 | Inpatient (IN) | payer OTHER, SELFPAY ==
[2022-11-20] VITALS (23 sets, daily range): BP systolic 101–148; BP diastolic 43–63; PULSE 53–74; RESP 12–35; TEMP 36.6; O2SAT 77–97
--- NOTE | 2022-11-20 12:12 | XR_ITS ---
WS: [id number] Exam: XR chest 1V portable [id number] Date/Time of Exam: 11/20/2022 12:24 PM Reason For Exam: Shortness of breath Comparison 11/14/2022. There are areas of increasing consolidating pneumonia in the upper lower lobes of the left lung as we ll as the upper and lower lobes of the right lung. Small bibasal pleural effusions are noted. The hea rt is top limits normal size. The mediastinum is normal in contour. There are signs of previous CABG surgery as well as cardiac valve replacement. Regional bony elements are intact. No pneumothorax. XR/XR chest 1V portable [id number] IMPRESSION: 1. Increasing areas of consolidating pneumonia in both lungs since the last exa m. 2. Small bibasal pleural effusions.
[2022-11-20 12:28] LABS: ABG PCO2 38.2 mmHg (35-45); ABG PH Result 7.49 (7.35-7.45); Arterial Blood Gas Hematocrit 26.3 % (42-52); Blood Gas Allen Test Pos; Blood Gas Operator Identificat CAK; Blood Gas Sample Site Radial, left; Blood Gas Sample Type Arterial; Carboxyhemoglobin 2.6 %THgb (0.4-20.1); HCO3 ABG 28.7 mmol/L (22-26); HGB O2 Sat 87.3 % (95-100); Methemoglobin 0.3 % (0.4-1.5); Oxygen Device SIMPLE MASK; PO2 ABG 53.7 mmHg (80.0-100.0); Total Hemoglobin 8.6 g/dL (14-18)
--- NOTE | 2022-11-20 12:36 | ECG_ITS ---
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 Measurements Intervals [place] Rate: 68 P: -53 AK: 154 QRS: 55 QRSD: 115 T: 95 QT: 429 QTc: 458 Interpretive Statements SINUS RHYTHM ANTEROSEPTAL MYOCARDIAL INFARCTION , OF INDETERMINATE AGE [40+ ms Q WAVE IN V1-V4] Compared to ECG 11/15/2022 03:18:27 Sinus arrhythmia no longer present Myocardial infarct finding still present Electronically Signed On 11-21-2022 16:32:13 CDT by Ariana Schwartz M.D. [email or web address]
--- NOTE | 2022-11-20 12:49 | ED_ITS ---
HPI - SOB/Dyspnea General: Chief Complaint: Shortness of Breath/Dyspnea Stated Complaint: sob Time Seen by Provider: 11/20/22 12:02 History of Present Illness: HPI Narrative: 77-year-old male presents emergency department via EMS chief complaint of progressive shortness of breath. The patient reports increased shortness of breath since yesterday he recently was released from the hospital due to being previously having lactic acidosis with underlying presumptive pneumonia and heart failure. Patient was offered to go to a SNF facility which was declined as the patient reported to follow from home patient is a longstanding history of being admitted to the hospital several times for the same circumstances. Patient upon MS arrival was noted to 83% SPO2 he was provided neb treatment prior to arrival he did not endorse any chest pain or palpitations. Patient does not recall any recent swelling in his legs reporting no other associated symptoms. Associated symptoms: Reports chest congestion; Deny abdominal pain, chest pain, extremity pain, fever(s), nausea, palpitations or vomiting Review of Systems General: Reports: 10 or more systems reviewed and unremarkable except in HPI and below Const: Denies: fever(s), chills, fatigue or malaise Eyes: Denies: change in vision or blurry vision Card: Denies: chest pain or palpitations Resp: Reports: dyspnea, productive cough, wheezing and chest congestion GI: Denies: abdominal pain, nausea or vomiting : Denies: flank pain Musc: Denies: extremity pain or extremity swelling Skin/Breast: Denies: rash or pruritus Neuro: Denies: headache(s) Psych: Denies: anxiety or depression Marvel/Lymph: Denies: easy bleeding All/Imm: Denies: urticaria, throat swelling or facial swelling [facility] PFSH: Medical History (Updated 11/20/22 @ 14:55 by Ajit Olson) Abdominal pain Acidosis, lactic Acute bacterial conjunctivitis of left eye Acute exacerbation of chronic obstructive airways disease Acute exacerbation of chronic obstructive pulmonary disease (COPD) Acute hyperkalemia Acute kidney injury Acute renal failure Acute respiratory failure with hypoxia NADER (acute kidney injury) Anemia Aortic stenosis Atrial fibrillation Atrial fibrillation Atrial fibrillation with RVR Bradycardia CHF exacerbation Chronic kidney disease (CKD), stage III (moderate) Chronic kidney failure Congestive heart failure (CHF) COPD (chronic obstructive pulmonary disease) COPD (chronic obstructive pulmonary disease) COPD exacerbation Coronary artery disease Dehydration Diabetes mellitus Diarrhea Digoxin overdose HFrEF (heart failure with reduced ejection fraction) HTN (hypertension) Hyperkalemia Hypomagnesemia Hyponatremia Hypoxia Ischemic cardiomyopathy Moderate aortic stenosis NSTEMI (non-ST elevated myocardial infarction) Pneumonia Pneumonia Poisoning by calcium-channel blockers Rhabdomyolysis Sepsis Suspected 2019-nCoV infection Symptomatic bradycardia Vomiting Surgical History History of mitral valve replacement with bioprosthetic valve 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 Family History Mother Stroke Denies family history of Diabetes CAD (coronary artery disease) Clotting disorder Dementia Social History Smoking and tobacco status: light tobacco smoker Quit status (tobacco): has quit using tobacco Year quit tobacco: 2016 Former quit date comment: smoked 1 pack per day x 36 years Alcohol intake: current Substance/Drug Use: never Household members: spouse Housing: House 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 Const: COMMON NORMALS: no acute distress, patient oriented x3 and healthy appearing HENMT: COMMON NORMALS: normocephalic and atraumatic HEAD & SCALP: normocephalic and atraumatic Eye: COMMON NORMALS: Equal, round and reactive pupils present and EOMs intact bilaterally PUPIL: Yes Equal, round and reactive pupils present Neck/C-Spine: COMMON NORMALS: full ROM, supple and no JVD Lymph: LYMPHATIC: no lymphadenopathy noted Chest: COMMONS NORMALS: normal inspection of the chest and normal palpation of entire chest wall Resp: OTHER: Moderate wheezing appreciated bilaterally no obvious crackles rales or rhonchi appreciated mild tachypnea. No respiratory distress appreciated patient is currently on a simple mask at 6 L/min 18 oxygenation in the high 80s Cardio: COMMON NORMALS: no JVD, regular rate and regular rhythm RATE: regular rate RHYTHM: regular rhythm GI: COMMON NORMALS: Normal to inspection, nondistended, normoactive bowel sounds present, Soft to palpation and non-tender INSPECTION: Yes normal to inspection PALPATION: Yes Soft to palpation : COMMON NORMALS: Yes no CVA tenderness BLADDER/KIDNEY EXAM: Yes no CVA tenderness Back/Pelvis: COMMON NORMALS: no CVA tenderness Extremity: COMMON NORMALS: normal to inspection and full ROM Neuro: COMMON NORMALS: patient oriented x3, CN's II-XII intact bilaterally, moves all extremities and no focal motor deficits Psych: COMMON NORMALS: mental status grossly normal, Normal thought process present, cooperative and normal affect THOUGHT PROCESS: Normal thought process present Skin: COMMON NORMALS: no rashes or lesions noted GENERAL SKIN EXAM: no rashes or lesions noted Course Vital Signs: Vital signs: Vital Signs Pulse Rate 72 11/20/22 13:35 Respiratory Rate 16 11/20/22 13:35 Blood Pressure 135/60 11/20/22 13:35 Pulse Oximetry 94 11/20/22 13:35 Oxygen Delivery Me thod Simple Mask 11/20/22 13:35 Oxygen Flow Rate 6 11/20/22 12:44 MDM - SOB/Dyspnea Medical Decision Making Due to the patient's symptom condition I will establish physical lab work imaging was obtained we will continue to follow along concerns of heart failure versus no pneumonia which is COPD exacerbation are prominent we will continue to follow. Patient was found to be in worsening heart failure as well as bilateral pulmonary infiltrates worse than previous discussed patient's case with Dr. Morrison hospitalist has accepted the patient patient's chronic troponins are grossly elevated but are improved from before patient still remains on a simple mask at 6 L to maintain oxygenation in the low 90s. Per Dr. Morrison's request CT angiogram of the chest will be obtained to further rule out underlying pulmonary and cardiac disease. Lab Data 11/20/22 11:40 11/20/22 11:40 Labs/Radiology: Radiology Impressions Chest X-Ray 11/20/22 12:12 IMPRESSION: 1. Increasing areas of consolidating pneumonia in both lungs since the last exam. 2. Small bibasal pleural effusions. Laboratory Results WBC 25.3 10^3/uL (4.0-10.0) H 11/20/22 11:40 RBC 3.33 10^6/uL (4.1-5.3) L 11/20/22 11:40 Hgb 9.5 g/dL (11.7-16.6) L 11/20/22 11:40 Hct 29.9 % (42.0-52.0) L 11/20/22 11:40 MCV 89.8 fl (80-94) 11/20/22 11:40 MCH 28.5 pg (28.0-34.0) 11/20/22 11:40 MCHC 31.8 g/dL (30.0-36.0) 11/20/22 11:40 RDW 17.3 % (12.1-15.1) H 11/20/22 11:40 Plt Count 198 10^3/cmm (130-400) 11/20/22 11:40 MPV 12.4 fL (7.4-10.4) H 11/20/22 11:40 Neut % (Auto) 77.5 % 11/20/22 11:40 Lymph % (Auto) 3.8 % 11/20/22 11:40 [place] % (Auto) 14.2 % 11/20/22 11:40 Eos % (Auto) 0.0 % 11/20/22 11:40 Baso % (Auto) 0.2 % 11/20/22 11:40 Neut # (Auto) 19.58 10^3/uL (1.8-7.7) H 11/20/22 11:40 Lymph # (Auto) 1.0 10^3/uL (0.8-4.8) 11/20/22 11:40 [place] # (Auto) 3.6 10^3/uL (0.2-0.9) H 11/20/22 11:40 Eos # (Auto) 0.0 10^3/uL (0.0-0.8) 11/20/22 11:40 Baso # (Auto) 0.0 10^3/uL (0.0-0.1) 11/20/22 11:40 Nucleated RBC % (auto) 0 % 11/20/22 11:40 Nucleated RBCs # 0.0 /100WBC 11/20/22 11:40 PT 13.80 SECONDS (12.1-14.9) 11/20/22 11:40 INR 1.02 (0.8-1.2) 11/20/22 11:40 Specimen Type Arterial 11/20/22 12:17 Sample Site Radial, left 11/20/22 12:17 ABG pH 7.49 (7.35-7.45) H 11/20/22 12:17 ABG pCO2 38.2 mmHg (35-45) 11/20/22 12:17 ABG pO2 53.7 mmHg (80.0-100.0) L 11/20/22 12:17 ABG HCO3 28.7 mmol/L (22-26) H 11/20/22 12:17 ABG Base Excess 5.0 mmol/L (-2.0-2.0) H 11/20/22 12:17 Lei Test Pos 11/20/22 12:17 Hematocrit 26.3 % (42-52) L 11/20/22 12:17 Hgb O2 Saturation 87.3 % (95-100) L 11/20/22 12:17 Carboxyhemoglobin 2.6 %THgb (0.4-20.1) 11/20/22 12:17 Methemoglobin 0.3 % (0.4-1.5) L 11/20/22 12:17 Total Hemoglobin 8.6 g/dL (14-18) L 11/20/22 12:17 O2 Delivery Device Simple mask 11/20/22 12:17 O2 Liters/Min 6.0 % 11/20/22 12:17 Professor Of Music ID Cak 11/20/22 12:17 Sodium 131 mmol/L (136-145) L 11/20/22 11:40 Potassium 3.3 mmol/L (3.5-5.1) L 11/20/22 11:40 Chloride 91 mmol/L (98-107) L 11/20/22 11:40 Carbon Dioxide 25 mmol/L (22-29) 11/20/22 11:40 Anion Gap 18.3 (5-19) 11/20/22 11:40 BUN 20 mg/dL (8-23) 11/20/22 11:40 Creatinine 1.1 mg/dL (0.7-1.2) 11/20/22 11:40 GFR Calculation Not Reportable 11/20/22 11:40 Glucose 298 mg/dL (65-115) H 11/20/22 11:40 Calculated Osmolality 286 mOsm/kg (285-295) 11/20/22 11:40 Lactic Acid 1.4 mmol/L (0.5-2.2) 11/20/22 12:38 Calcium 8.6 mg/dL (8.5-10.5) 11/20/22 11:40 Total Bilirubin 0.7 mg/dL (0.15-1.2) 11/20/22 11:40 AST 26 U/L (0-40) 11/20/22 11:40 ALT 28 U/L (0-41) 11/20/22 11:40 Alkaline Phosphatase 139 U/L (40-130) H 11/20/22 11:40 Troponin T Baseline 190 ng/L (0-15) H* 11/20/22 11:40 Troponin T 120 Minute 193.8 ng/L (0-15) H 11/20/22 13:35 Delta Troponin T 3.8 ABS# (0-10) 11/20/22 13:35 NT-Pro-B Natriuret Pep 9199 pg/mL (0-450) H 11/20/22 11:40 Total Protein 7.2 g/dL (6.6-8.7) 11/20/22 11:40 Albumin 3.4 g/dL (3.5-5.2) L 11/20/22 11:40 Globulin 3.8 g/dL (1.3-4.6) 11/20/22 11:40 Discharge Plan Discharge Patient Disposition: Admitted As Inpatient Clinical Impression: Congestive heart failure, Community acquired pneumonia, Elevated troponin Condition: Stable Coding Level of Care Code ED [employer] for Deyanira Pinon
[2022-11-20 13:01] LABS: Basophils % 0.2 %; Hematocrit 29.9 % (42.0-52.0); Hemoglobin 9.5 g/dL (11.7-16.6); Lymphocytes % 3.8 %; Mean Corpuscular HGB Conc 31.8 g/dL (30.0-36.0); Mean Corpuscular Hemoglobin 28.5 pg (28.0-34.0); Mean Corpuscular Volume 89.8 fl (80-94); Mean Platelet Volume 12.4 fL (7.4-10.4); Monocytes # 3.6 10^3/uL (0.2-0.9); Monocytes % 14.2 %; Neutrophils # 19.58 10^3/uL (1.8-7.7); Neutrophils % 77.5 %; Nucleated Red Blood Cells % 0 %; Platelet Count 198 10^3/cmm (130-400); Red Blood Count 3.33 10^6/uL (4.1-5.3); Red Cell Distribution Width 17.3 % (12.1-15.1); White Blood Count 25.3 10^3/uL (4.0-10.0)
[2022-11-20 13:20] LABS: Lactic Sepsis W/Reflex 1.4 mmol/L (0.5-2.2)
[2022-11-20 13:25] LABS: INR 1.02 (0.8-1.2)
[2022-11-20 13:31] LABS: Alanine Aminotransferase 28 U/L (0-41); Albumin Level 3.4 g/dL (3.5-5.2); Alkaline Phosphatase 139 U/L (40-130); Anion Gap 18.3 (5-19); Aspartate Amino Transferase 26 U/L (0-40); Blood Urea Nitrogen 20 mg/dL (8-23); Calcium 8.6 mg/dL (8.5-10.5); Carbon Dioxide 25 mmol/L (22-29); Chloride 91 mmol/L (98-107); Globulin 3.8 g/dL (1.3-4.6); Glucose 298 mg/dL (65-115); NT Pro B Type Natriuretic Pept 9199 pg/mL (0-450); Osmolality Calculated 286 mOsm/kg (285-295); Potassium 3.3 mmol/L (3.5-5.1); Sodium 131 mmol/L (136-145); Total Bilirubin 0.7 mg/dL (0.15-1.2); Total Protein 7.2 g/dL (6.6-8.7)
[2022-11-20] MEDS: piperacillin-tazobactam 4.5 GM in sodium chloride 0.9% (plus) 50 ML IV (13:33)
[2022-11-20 13:42] LABS: Troponin(5th) Baseline 190 ng/L (0-15)
--- NOTE | 2022-11-20 14:13 | ECG_ITS ---
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 Measurements Intervals [place] Rate: 70 P: 0 [place]: 0 QRS: 12 QRSD: 106 T: 64 QT: 411 QTc: 445 Interpretive Statements Regular supraventricular rhythm, possibly sinus POSSIBLE INFERIOR MYOCARDIAL INFARCTION , PROBABLY OLD [30 ms Q WAVE IN II/aVF] ANTEROSEPTAL MYOCARDIAL INFARCTION , OF INDETERMINATE AGE [40+ ms Q WAVE IN V1-V4] CRITICAL TEST RESULT Compared to ECG 11/20/2022 12:36:15 No significant changes Heavy artifacts, need to repeat Electronically Signed On 11-21-2022 16:53:42 CDT by Ariana Schwatrz M.D. [id number]
[2022-11-20 14:40] LABS: Troponin 5 2HR 193.8 ng/L (0-15); Troponin 5 2HR Delta 3.8 ABS# (0-10)
--- NOTE | 2022-11-20 14:42 | CT_ITS ---
WS: [id number] CTA OF THE CHEST WITH PULMONARY EMBOLISM PROTOCOL TECHNIQUE: High-resolution contrast enhanced CTA of the chest with coronal and sagittal reformatted i tray with pulmonary embolism protocol. MIP images are also reviewed. CLINICAL INFORMATION: elevated troponin with SOB COMPARISON: November 14, 2022 DLP: 351.[address] scans at [facility] use at least one of these dose optimization techniques: automated e xposure control; mA and/or kV adjustment per patient size (includes targeted exams where dose is matc hed to clinical indication); or iterative reconstruction. FINDINGS:Proximal main pulmonary arteries are normal. Normal segmental and subsegmental pulmonary art eries. No evidence of pulmonary embolus. Patchy diffuse bilateral airspace infiltrates appear progressed since November 14, 2022. This is worse i n the LEFT hilum and RIGHT lower lobe. Progressed patchy infiltrates in the LEFT lower lobe. Micronod ular infiltrates in the RIGHT upper lobe peripherally. Small LEFT greater than RIGHT pleural effusion s slightly progressed. Sternotomy. Aortic calcification. Coronary calcification. CABG. Numerous enlarged anterior mediastina l and peribronchial lymph nodes unchanged. Enlarged subcarinal lymph nodes unchanged. These are nonsp ecific but likely reactive. RIGHT greater than LEFT bronchovascular thickening. No axillary lymphaden opathy. Adrenal glands are normal. RIGHT renal cyst. Splenic artery calcifications. Hypertrophic changes thor acic spine. CT/CT angio chest PE protcl [id number] IMPRESSION: 1. No evidence of pulmonary embolus. 2. Progressed patchy bilateral airspace infiltrates. 3. Mediastinal, peribronchial and subcarinal lymphadenopathy is similar to pre vious likely reactive. 4. Trace bilateral pleural effusions.
[2022-11-20] MEDS: iohexol 350 mg/mL 500 mL Btl (per mL) IV (15:04)
[2022-11-20] MEDS: FUROsemide 10 mg/mL SDV 4mL 40 MG IVP (15:17)
--- NOTE | 2022-11-20 17:12 | PM.HP ---
Providers/Chief Complaint Admitting Physician: Yung Morrison MD Primary Care Provider: Paola Moore MD Chief Complaint: sob History of Present Illness Anuj Irving is a 77 year old male COPD, atrial fibrillation, coronary artery disease, diabetes mellitus, hypertension, ischemic cardiomyopathy, HFrEF,moderate aortic stenosis came in with chief complaint of Shortness of breath, and increasing oxygen requirement at home, history taking has been difficult as the patient is on BiPAP and extremely drowsy.CTA chest showed: Worsened patchy bilateral airspace infiltrate No pulm embolism. Pertinent labs: WBC 25.3, H&H 9.5/ PLT : 198 , serum sodium 131, serum potassium 3.3, BUN 20, serum creatinine 1.1, lactic acid 1.4, Troponin trend: 568-063-4-hour troponin pending, procal BNP 9199. Patient was given Lasix 40 IV in the ER, as well as a dose of Zosyn and Solu-Medrol 125, along with DuoNebs. Review of Systems Narrative: Currently unobtainable as the patient is on BiPAP and very drowsy. Medications/Allergies Home Medications Medication Instructions Recorded Confirmed Last Taken Type cholecalciferol (vitamin D3) 25 25 mcg PO DAILY 07/12/21 11/20/22 09/09/22 History mcg (1,000 unit) capsule (Vitamin D3) docusate sodium 100 mg capsule 200 mg PO BEDTIME 07/12/21 11/20/22 06/20/22 History omeprazole 40 mg capsule,delayed 40 mg PO BID 07/12/21 11/20/22 09/10/22 History release carboxymethylcellulose sodium 1 % 1 drp ophthalmic (eye) BID PRN Dry 11/26/21 11/20/22 Unknown History eye liquid gel drops (Refresh Eye(S) Liquigel) fluticasone 100 mcg-salmeterol 50 1 inh inhalation BID 11/26/21 11/20/22 09/09/22 History mcg/dose blistr powdr for inhalation (Advair Diskus) ipratropium 20 mcg-albuterol 100 1 puff inhalation Q6H PRN 11/26/21 11/20/22 Unknown History mcg/actuation mist for inhalation Shortness Of Breath (Combivent Respimat) albuterol sulfate 90 mcg/actuation 2 inh inhalation Q4H PRN shortness 08/16/22 11/20/22 11/14/22 Rx aerosol inhaler of breath or wheezing #8.5 grams ipratropium 0.5 mg-albuterol 3 mg 3 ml inhalation Q4H PRN shortness 11/05/22 11/20/22 Unknown Rx (2.5 mg base)/3 mL nebulization of breath or wheezing #90 mL soln atorvastatin 80 mg tablet 80 mg PO QPM 11/07/22 11/20/22 Unknown History glimepiride 4 mg tablet 2 mg PO QAM 11/07/22 11/20/22 Unknown History insulin glargine 100 unit/mL (3 10 unit SUBCUT BID 11/07/22 11/20/22 Unknown History mL) subcutaneous pen (Lantus Solostar U-100 Insulin) aspirin 81 mg tablet,delayed 81 mg PO DAILY #0 tabs 11/14/22 11/20/22 Unknown Rx release metoprolol tartrate 25 mg tablet 12.5 mg PO Q12H 30 days #30 tabs 11/14/22 11/20/22 11/14/22 Rx ipratropium bromide 17 2 puff inhalation TID 11/15/22 11/20/22 Unknown History mcg/actuation HFA aerosol inhaler (Atrovent HFA) amlodipine 10 mg tablet 10 mg PO DAILY 11/16/22 11/20/22 Unknown History hydralazine 25 mg tablet 25 mg PO BID 11/16/22 11/20/22 Unknown History multivitamin 1 tab PO DAILY 11/16/22 11/20/22 Unknown History neomycin 3.5 mg/g-polymyxin B See Rx Instructions .Route .COMPLEX 11/16/22 11/20/22 Unknown History 10,000 unit/g-dexameth 0.1 % eye oint sduappjn-imcfcwrhmg-ererxakm 3.5 1 applic ophthalmic (eye) TID 11/16/22 11/20/22 Unknown History mg-400 unit-10,000 unit/gram eye oint amiodarone 200 mg tablet 200 mg PO BID #60 tabs 11/19/22 11/20/22 Unknown Rx furosemide 40 mg tablet (Lasix) 40 mg PO BID #60 tabs 11/19/22 11/20/22 Unknown Rx potassium chloride 20 mEq 20 meq PO BID #60 tabs 11/19/22 11/20/22 Unknown Rx tablet,extended release(part/cryst) (Klor-Con M) prednisone 5 mg tablet 5 mg PO BID 11/20/22 11/20/22 Unknown History Allergies Allergy/AdvReac Type Severity Reaction Status Date / Time No Known Allergies Allergy Verified 11/15/22 03:28 PFSH Acute PFSH: Medical History (Updated 11/20/22 @ 17:20 by Yung Morrison MD) Abdominal pain Acidosis, lactic Acute bacterial conjunctivitis of left eye Acute exacerbation of chronic obstructive airways disease Acute exacerbation of chronic obstructive pulmonary disease (COPD) Acute hyperkalemia Acute kidney injury Acute renal failure Acute respiratory failure with hypoxia NADER (acute kidney injury) Anemia Aortic stenosis Atrial fibrillation Atrial fibrillation Atrial fibrillation with RVR Bradycardia CHF exacerbation Chronic kidney disease (CKD), stage III (moderate) Chronic kidney failure Congestive heart failure (CHF) COPD (chronic obstructive pulmonary disease) COPD (chronic obstructive pulmonary disease) COPD exacerbation Coronary artery disease Dehydration Diabetes mellitus Diarrhea Digoxin overdose HFrEF (heart failure with reduced ejection fraction) HTN (hypertension) Hyperkalemia Hypomagnesemia Hyponatremia Hypoxia Ischemic cardiomyopathy Moderate aortic stenosis NSTEMI (non-ST elevated myocardial infarction) Pneumonia Pneumonia Poisoning by calcium-channel blockers Rhabdomyolysis Sepsis Suspected 2019-nCoV infection Symptomatic bradycardia Vomiting Surgical History History of mitral valve replacement with bioprosthetic valve 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 Family History Mother Stroke Denies family history of Diabetes CAD (coronary artery disease) Clotting disorder Dementia Social History Smoking and tobacco status: light tobacco smoker Quit status (tobacco): has quit using tobacco Year quit tobacco: 2016 Former quit date comment: smoked 1 pack per day x 36 years Alcohol intake: current Substance/Drug Use: never Household members: spouse Housing: House 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 Vital Signs Pulse 66 11/20/22 16:50 Resp 25 H 11/20/22 16:50 BP 148/58 11/20/22 16:50 Pulse Ox 93 11/20/22 16:50 O2 Del Method Simple Mask 11/20/22 15:19 O2 Flow Rate 6 04/28/23 15:19 FiO2 35 11/20/22 16:33 11/20/22 11/20/22 11/20/22 06:59 14:59 22:59 Intake Total 50 / 50 Balance 50 / 50 Physical Exam HENMT: COMMON NORMALS: normocephalic and atraumatic Resp: COMMON NORMALS: clear to auscultation bilaterally AUSCULTATION: clear to auscultation bilaterally OTHER: Diminished air entry bilaterally Cardio: COMMON NORMALS: regular rate, regular rhythm, S1 normal heart sound present, S2 normal heart sound present, No gallops present (Cardio), No murmurs present (Cardio), No rub (Cardio) and Peripheral pulses 2+ throughout RATE: regular rate RHYTHM: regular rhythm HEART SOUNDS: S1 normal heart sound present and S2 normal heart sound present PERIPHERAL PULSES: Peripheral pulses 2+ throughout GI: COMMON NORMALS: Normal to inspection, nondistended, normoactive bowel sounds present, Soft to palpation, non-tender, No hepatosplenomegaly present and no masses AUSCULTATION: Yes normoactive bowel sounds PALPATION: Yes Soft to palpation and Yes No hepatosplenomegaly present RECTAL EXAM: Yes deferred Extremity: COMMON NORMALS: no clubbing, cyanosis or edema and no pedal edema Neuro: COMMON NORMALS: patient oriented x3 Data 11/20/22 11:40 11/20/22 11:40 Micro: Microbiology 11/20/22 12:42 Blood Culture - Preliminary Blood SPECIMEN COLLECTED 11/20/22 12:38 Blood Culture - Preliminary Blood SPECIMEN COLLECTED A&P Assessment and plan (1) Respiratory failure with hypoxia: (2) COPD (chronic obstructive pulmonary disease): (3) NSTEMI (non-ST elevated myocardial infarction): (4) Diabetes mellitus: (5) HFrEF (heart failure with reduced ejection fraction): (6) Ischemic cardiomyopathy: (7) Anemia: (8) Aortic stenosis: (9) Atrial fibrillation: Plan 7 year old male COPD, atrial fibrillation, coronary artery disease, diabetes mellitus, hypertension, ischemic cardiomyopathy, HFrEF,moderate aortic stenosis came in with chief complaint of Shortness of breath, and increasing oxygen requirement at home. Assessment: Acute on chronic respiratory failure with hypoxia secondary to decompensated heart failure with reduced ejection fraction, pneumonia: CTA chest showed: Worsened patchy bilateral airspace infiltrate ,No pulm embolism. Follow blood culture Sputum culture: Recent sputum culture has grown MSSA Procalcitonin Currently he is on, vancomycin and meropenem, as well as, Lasix 60 IV twice daily Monitor intake output charting Monitor daily weight Continue telemetry monitoring Monitor electrolytes:K>4,MG>2 Monitor x-ray chest and ABG as needed DuoNebs Continue BiPAP for now to reduce the work of breathing Supplemental oxygen as needed NSTEMI: Most recent stress test result appreciated: Myocardial perfusion imaging revealing moderate to large area of persistent decreased tracer uptake involving the inferior, inferolateral and all the apical segments suggesting myocardial scarring in the distribution of all the 3?coronary arteries.No significant ischemia was noted in these regions Most recent 2D echo: LV systolic function is moderately reduced with EF of 35 to 40%.?RV is moderately hypokinetic ?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 Follow 6-hour troponin We will get cardiology on board History of atrial fibrillation: Continue p.o. amiodarone as well as metoprolol Anticoagulation was discontinued on last discharge, patient was requiring blood transfusion and has positive FOBT. History of diabetes: Continue Lantus twice daily,SSI, monitor fingerstick glucose History of hypertension: Continue amlodipine hydralazine metoprolol CODE STATUS full code DVT prophylaxis on Lovenox Attestations Medical Necessity Statement*: Needs to be in hospital for management respiratory failure with hypoxia.Anticipated length of stay: Greater than 2 midnights Coding Level of Care Code Acute Code for [facility] Diagnoses Respiratory failure with hypoxia J96.91 COPD (chronic obstructive pulmonary disease) J44.9 NSTEMI (non-ST elevated myocardial infarction) I21.4 Diabetes mellitus E11.9 HFrEF (heart failure with reduced ejection fraction) I50.20 Ischemic cardiomyopathy I25.5 Anemia D64.9 Aortic stenosis I35.0 Atrial fibrillation I48.91
[2022-11-20 17:41] LABS: Adenovirus Not Detected (NOT DETECT); Chlamydia Pneumoniae Not Detected (NOT DETECT); Coronavirus 229E,HKU1,NL63,OC4 Not Detected (NOT DETECT); Human Metapneumovirus Not Detected (NOT DETECT); Human Rhinovirus/Enterovirus Detected (NOT DETECT); Influenza A Not Detected (NOT DETECT); Influenza A H1 Not Detected (NOT DETECT); Influenza A H1-2009 Not Detected (NOT DETECT); Influenza A H3 Not Detected (NOT DETECT); Influenza B Not Detected (NOT DETECT); Mycoplasma Pneumoniae Not Detected (NOT DETECT); Parainfluenza Virus Type 1 Not Detected (NOT DETECT); Parainfluenza Virus Type 2 Not Detected (NOT DETECT); Parainfluenza Virus Type 3 Not Detected (NOT DETECT); Parainfluenza Virus Type 4 Not Detected (NOT DETECT); Respiratory Syncytial Virus A Not Detected (NOT DETECT); Respiratory Syncytial Virus B Not Detected (NOT DETECT); SARS-COV-2 Not Detected (NOT DETECT)
[2022-11-20] MEDS: enoxaparin 40 mg/0.4 mL Syringe SUBCUT (17:52)
[2022-11-20] MEDS: lidocaine 1% 5 ML in potassium chloride premix 100 ML 26.25 ML IV (17:54)
[2022-11-20] MEDS: insulin glargine 100 units/1 mL 10 UNIT SUBCUT (17:54)
--- NOTE | 2022-11-20 18:00 | PC.NURSE ---
Nurse asked physician if patient could have water, physician said yes that patient was not NPO.
[2022-11-20] MEDS: amiodarone 200 mg Tablet PO (18:03)
[2022-11-20] MEDS: atorvastatin 40 mg Tablet 80 MG PO (18:03)
[2022-11-20] MEDS: potassium chloride ER 20 mEq Tablet PO (18:03)
[2022-11-20] MEDS: vancomycin 1,000 MG in sodium chloride 0.9% 250 ML 250 MG IV (18:03)
[2022-11-20] MEDS: meropenem 500 MG in sodium chloride 0.9% (plus) 50 ML 100 MG IV (18:04)
[2022-11-20] MEDS: metoprolol tartrate 25 mg Tablet 12.5 MG PO (18:11)
[2022-11-20] MEDS: hyDRALAzine 25 mg Tablet PO (18:11)
[2022-11-20] MEDS: ipratropium-albuterol 3 mL Neb INHALATION (21:01)
[2022-11-20] MEDS: budesonide 0.5 mg/2 mL Neb INHALATION (21:02)
[2022-11-20] MEDS: docusate sodium 100 mg Capsule 200 MG PO (21:24)
[2022-11-20] MEDS: FUROsemide 10 mg/mL SDV 10mL 60 MG IVP (21:25)
[2022-11-20 21:36] LABS: Glucose Point of Care 545 mg/dL (70-110)
[2022-11-20] MEDS: insulin lispro 100 unit/1 mL SUBCUT (22:28)
[2022-11-20 22:47] LABS: Glucose Point of Care 294 mg/dL (70-110)
[2022-11-21] VITALS (64 sets, daily range): BP systolic 101–125; BP diastolic 47–65; PULSE 52–78; RESP 16–40; TEMP 36.4–37.1; O2SAT 83–100
[2022-11-21] MEDS: meropenem 500 MG in sodium chloride 0.9% (plus) 50 ML 100 MG IV ×3 (02:32→18:17)
[2022-11-21 03:39] LABS: Hematocrit 23.7 % (42.0-52.0); Hemoglobin 7.4 g/dL (11.7-16.6); Lymphocytes # 0.2 10^3/uL (0.8-4.8); Lymphocytes % 2.8 %; Mean Corpuscular HGB Conc 31.2 g/dL (30.0-36.0); Mean Corpuscular Hemoglobin 27.6 pg (28.0-34.0); Mean Corpuscular Volume 88.4 fl (80-94); Mean Platelet Volume 12.7 fL (7.4-10.4); Monocytes # 0.8 10^3/uL (0.2-0.9); Monocytes % 10.7 %; Neutrophils # 6.25 10^3/uL (1.8-7.7); Neutrophils % 82.2 %; Nucleated Red Blood Cells % 0 %; Platelet Count 123 10^3/cmm (130-400); Red Blood Count 2.68 10^6/uL (4.1-5.3); Red Cell Distribution Width 17.3 % (12.1-15.1); White Blood Count 7.6 10^3/uL (4.0-10.0)
[2022-11-21 03:57] LABS: Alanine Aminotransferase 20 U/L (0-41); Albumin Level 2.7 g/dL (3.5-5.2); Alkaline Phosphatase 105 U/L (40-130); Anion Gap 16.1 (5-19); Aspartate Amino Transferase 19 U/L (0-40); Blood Urea Nitrogen 24 mg/dL (8-23); Calcium 8.1 mg/dL (8.5-10.5); Carbon Dioxide 25 mmol/L (22-29); Chloride 95 mmol/L (98-107); Globulin 3.1 g/dL (1.3-4.6); Glucose 326 mg/dL (65-115); Magnesium 1.9 mg/dL (1.7-2.3); Osmolality Calculated 291 mOsm/kg (285-295); Potassium 4.1 mmol/L (3.5-5.1); Sodium 132 mmol/L (136-145); Total Bilirubin 0.5 mg/dL (0.15-1.2); Total Protein 5.8 g/dL (6.6-8.7)
[2022-11-21 04:02] LABS: Procalcitonin 0.25 ng/mL (0-0.5)
[2022-11-21] MEDS: metoprolol tartrate 25 mg Tablet 12.5 MG PO ×2 (05:05→16:59)
[2022-11-21 06:25] LABS: Glucose Point of Care 338 mg/dL (70-110)
[2022-11-21] MEDS: ipratropium-albuterol 3 mL Neb INHALATION ×4 (07:30→20:36)
[2022-11-21] MEDS: budesonide 0.5 mg/2 mL Neb INHALATION ×2 (07:31→20:35)
[2022-11-21] MEDS: insulin lispro 100 unit/1 mL SUBCUT ×4 (07:47→21:02)
[2022-11-21] MEDS: FUROsemide 10 mg/mL SDV 10mL 60 MG IVP (07:48)
[2022-11-21] MEDS: aspirin 81 mg EC Tablet PO (08:39)
[2022-11-21] MEDS: potassium chloride ER 20 mEq Tablet PO ×2 (08:39→17:37)
[2022-11-21] MEDS: amlodipine 10 mg Tablet PO (08:39)
[2022-11-21] MEDS: hyDRALAzine 25 mg Tablet PO ×2 (08:39→17:37)
[2022-11-21] MEDS: amiodarone 200 mg Tablet PO ×2 (08:39→17:37)
[2022-11-21] MEDS: pantoprazole DR 40 mg Tablet PO (08:40)
[2022-11-21 08:56] LABS: Glucose Point of Care 344 mg/dL (70-110)
[2022-11-21] MEDS: insulin glargine 100 units/1 mL 10 UNIT SUBCUT ×2 (09:37→18:16)
[2022-11-21 12:03] LABS: Glucose Point of Care 255 mg/dL (70-110)
--- NOTE | 2022-11-21 12:38 | PM.PN ---
Subjective Subjective: Patient was seen and examined this morning shortness of breath is significantly improved, robust urine output overnight : Medications: Medication Review Details: Generic Name Dose Route Start Last Admin Trade Name Michaelq PRN Reason Stop Dose Admin Albuterol/Ipratrop ium 3 ml 11/20/22 20:00 11/21/22 11:12 Ipratropium-Albu terol 3 Ml Neb INHALATION 3 ml QID.RESPIRATORY S CH Administration Amiodarone HCl 200 mg 11/20/22 18:00 11/21/22 08:39 Amiodarone 200 M g Tablet PO 200 mg BID SHIELA Administration Amlodipine Besylat e 10 mg 11/21/22 09:00 11/21/22 08:39 Amlodipine 10 Mg Tablet PO 10 mg DAILY SHIELA Administration Aspirin 81 mg 11/21/22 09:00 11/21/22 08:39 Aspirin 81 Mg Ec Tablet PO 81 mg DAILY SHIELA Administration Atorvastatin Calci um 80 mg 11/20/22 18:00 11/20/22 18:03 Atorvastatin 40 Mg Tablet PO 80 mg QPM SHIELA Administration Budesonide 0.5 mg 11/20/22 20:00 11/21/22 07:31 Budesonide 0.5 M g/2 Ml Neb INHALATION 0.5 mg BID.RESPIRATORY S CH Administration Docusate Sodium 200 mg 11/20/22 21:00 11/20/22 21:24 Docusate Sodium 100 Mg Capsule PO 200 mg BEDTIME SHIELA Administration Enoxaparin Sodium 40 mg 11/20/22 17:00 11/20/22 17:52 Enoxaparin 40 Mg /0.4 Ml Syringe SUBCUT 40 mg Q24H SHIELA Administration Hydralazine HCl 25 mg 11/20/22 18:00 11/21/22 08:39 Hydralazine 25 M g Tablet PO 25 mg BID SHIELA Administration Vancomycin HCl 1,0 00 mg/ 250 mls @ 250 mls /hr 11/20/22 17:30 11/20/22 19:50 Sodium Chloride IV Infused Q24H SHIELA Infusion Protocol Meropenem 500 mg/ Sodium 50 mls @ 100 mls/ hr 11/20/22 18:00 11/21/22 10:33 Chloride IV Infused Q8H SHIELA Infusion Protocol Insulin Glargine 10 unit 11/20/22 18:00 11/21/22 09:37 Insulin Glargine 100 Units/1 Ml SUBCUT 10 unit BID SHIELA Administration Insulin Human Lisp ro 0 unit 11/20/22 18:00 11/21/22 07:47 Insulin Lispro 1 00 Unit/1 Ml SUBCUT 12 unit WM&BEDTIME SHIELA Administration Protocol Metoprolol Tartrat e 12.5 mg 11/20/22 17:45 11/21/22 05:05 Metoprolol Tartr ate 25 Mg Tablet PO 12.5 mg Q12H SHIELA Administration Pantoprazole Sodiu m 40 mg 11/21/22 09:00 11/21/22 08:[address] 40 Mg Tablet PO 40 mg DAILY SHIELA Administration Potassium Chloride 20 meq 11/20/22 18:00 11/21/22 08:39 Potassium Chlori de Er 20 Meq Table t PO 20 meq BID SHIELA Administration Vitals/I&O/Wt Last Vital Signs Temp 97.8 F 11/21/22 04:00 Pulse 74 11/21/22 11:29 Resp 27 H 11/21/22 11:29 BP 111/50 11/21/22 11:29 Pulse Ox 93 11/21/22 11:29 O2 Del Method Nasal Cannula 11/21/22 11:29 O2 Flow Rate 6 11/21/22 11:12 FiO2 35 11/20/22 18:00 11/20/22 11/21/22 11/21/22 22:59 06:59 14:59 Intake Total 705 / 755 350 / 1105 50 / 50 Output Total 3000 / 3000 500 / 3500 650 / 650 Balance -2295 / -2245 -150 / -2395 -600 / -600 Weight last 48 hrs Weight 58.423 kg Weight 58.06 kg Physical Exam Const: COMMON NORMALS: patient oriented x3 HENMT: COMMON NORMALS: normocephalic and atraumatic HEAD & SCALP: normocephalic and atraumatic Resp: COMMON NORMALS: clear to auscultation bilaterally AUSCULTATION: clear to auscultation bilaterally OTHER: Diminished air entry bilaterally Cardio: COMMON NORMALS: regular rate, regular rhythm, S1 normal heart sound present, S2 normal heart sound present, No gallops present (Cardio), No murmurs present (Cardio), No rub (Cardio) and Peripheral pulses 2+ throughout RATE: regular rate RHYTHM: regular rhythm HEART SOUNDS: S1 normal heart sound present and S2 normal heart sound present PERIPHERAL PULSES: Peripheral pulses 2+ throughout GI: COMMON NORMALS: Normal to inspection, nondistended, normoactive bowel sounds present, Soft to palpation, non-tender, No hepatosplenomegaly present and no masses AUSCULTATION: Yes normoactive bowel sounds PALPATION: Yes Soft to palpation and Yes No hepatosplenomegaly present RECTAL EXAM: Yes deferred Extremity: COMMON NORMALS: no clubbing, cyanosis or edema and no pedal edema Neuro: COMMON NORMALS: patient oriented x3 Urinary Catheter Management: Ortiz: Cath Placed During This Visit: yes Reason for Continuing Indwelling Catheter: Other Urinary Catheter Date of Insertion: 11/20/22 Urinary Catheter Time of Insertion: 17:33 Data 11/21/22 03:05 11/21/22 03:05 Micro: Microbiology 11/21/22 05:00 Gram Stain - Final Sputum - Expectorated Sputum 11/20/22 12:42 Blood Culture - Preliminary Blood SPECIMEN COLLECTED 11/20/22 12:38 Blood Culture - Preliminary Blood SPECIMEN COLLECTED A&P Assessment and plan (1) Respiratory failure with hypoxia: (2) COPD (chronic obstructive pulmonary disease): (3) NSTEMI (non-ST elevated myocardial infarction): (4) Diabetes mellitus: (5) HFrEF (heart failure with reduced ejection fraction): (6) Ischemic cardiomyopathy: (7) Anemia: (8) Aortic stenosis: (9) Atrial fibrillation: Plan 7 year old male COPD, atrial fibrillation, coronary artery disease, diabetes mellitus, hypertension, ischemic cardiomyopathy, HFrEF,moderate aortic stenosis came in with chief complaint of Shortness of breath, and increasing oxygen requirement at home. Assessment: Acute on chronic respiratory failure with hypoxia secondary to decompensated heart failure with reduced ejection fraction, pneumonia: CTA chest showed: Worsened patchy bilateral airspace infiltrate ,No pulm embolism. Follow blood culture Sputum Gram stain and culture: Moderate gram-positive cocci in pairs in clusters Recent sputum culture has grown MSSA Procalcitonin:0.25 Currently he is on, vancomycin and meropenem, as well as, Lasix 60 IV twice daily Monitor intake output charting Monitor daily weight Continue telemetry monitoring Monitor electrolytes:K>4,MG>2 Monitor x-ray chest and ABG as needed DuoNebs Continue BiPAP for now to reduce the work of breathing Supplemental oxygen as needed NSTEMI: [id number] Most recent stress test result appreciated: Myocardial perfusion imaging revealing moderate to large area of persistent decreased tracer uptake involving the inferior, inferolateral and all the apical segments suggesting myocardial scarring in the distribution of all the 3?coronary arteries.No significant ischemia was noted in these regions Most recent 2D echo: LV systolic function is moderately reduced with EF of 35 to 40%.?RV is moderately hypokinetic ?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 We will get cardiology on board History of atrial fibrillation: Continue p.o. amiodarone as well as metoprolol Anticoagulation was discontinued on last discharge, patient was requiring blood transfusion and has positive FOBT. History of diabetes: Continue Lantus twice daily,SSI, monitor fingerstick glucose History of hypertension: Continue amlodipine hydralazine metoprolol CODE STATUS full code DVT prophylaxis on Lovenox Attestations Medical Necessity Statement*: Needs to be in hospital management respiratory failure. Coding Level of Care Code 26906 Diagnoses Respiratory failure with hypoxia J96.91 COPD (chronic obstructive pulmonary disease) J44.9 NSTEMI (non-ST elevated myocardial infarction) I21.4 Diabetes mellitus E11.9 HFrEF (heart failure with reduced ejection fraction) I50.20 Ischemic cardiomyopathy I25.5 Anemia D64.9 Aortic stenosis I35.0 Atrial fibrillation I48.91
[2022-11-21 16:51] LABS: Glucose Point of Care 334 mg/dL (70-110)
[2022-11-21] MEDS: vancomycin 1,000 MG in sodium chloride 0.9% 250 ML 250 MG IV (16:59)
[2022-11-21] MEDS: atorvastatin 40 mg Tablet 80 MG PO (17:37)
[2022-11-21 20:14] LABS: Glucose Point of Care 329 mg/dL (70-110)
[2022-11-21] MEDS: docusate sodium 100 mg Capsule 200 MG PO (21:01)
[2022-11-22] VITALS (83 sets, daily range): BP systolic 104–168; BP diastolic 42–83; PULSE 46–87; RESP 7–39; TEMP 36.4–37.2; O2SAT 81–100
[2022-11-22] MEDS: meropenem 500 MG in sodium chloride 0.9% (plus) 50 ML 100 MG IV ×3 (01:09→20:30)
[2022-11-22] MEDS: FUROsemide 10 mg/mL SDV 10mL 60 MG IVP (04:26)
[2022-11-22] MEDS: metoprolol tartrate 25 mg Tablet 12.5 MG PO ×2 (05:19→17:19)
[2022-11-22 05:20] LABS: Basophils # 0.1 10^3/uL (0.0-0.1); Basophils % 0.1 %; Hematocrit 29.4 % (42.0-52.0); Lymphocytes # 0.9 10^3/uL (0.8-4.8); Lymphocytes % 2.4 %; Mean Corpuscular HGB Conc 30.6 g/dL (30.0-36.0); Mean Corpuscular Volume 91.6 fl (80-94); Mean Platelet Volume 12.1 fL (7.4-10.4); Monocytes # 4.9 10^3/uL (0.2-0.9); Monocytes % 13.2 %; Neutrophils # 29.85 10^3/uL (1.8-7.7); Neutrophils % 80.1 %; Nucleated Red Blood Cells % 0 %; Platelet Count 215 10^3/cmm (130-400); Red Blood Count 3.21 10^6/uL (4.1-5.3); Red Cell Distribution Width 17.6 % (12.1-15.1)
[2022-11-22 05:23] LABS: White Blood Count 37.3 10^3/uL (4.0-10.0)
[2022-11-22 05:32] LABS: Alanine Aminotransferase 26 U/L (0-41); Albumin Level 3.2 g/dL (3.5-5.2); Alkaline Phosphatase 134 U/L (40-130); Anion Gap 20.5 (5-19); Aspartate Amino Transferase 45 U/L (0-40); Blood Urea Nitrogen 30 mg/dL (8-23); Calcium 9.1 mg/dL (8.5-10.5); Carbon Dioxide 25 mmol/L (22-29); Chloride 94 mmol/L (98-107); Globulin 4.2 g/dL (1.3-4.6); Glucose 100 mg/dL (65-115); Osmolality Calculated 284 mOsm/kg (285-295); Potassium 5.5 mmol/L (3.5-5.1); Sodium 134 mmol/L (136-145); Total Bilirubin 0.6 mg/dL (0.15-1.2); Total Protein 7.4 g/dL (6.6-8.7)
[2022-11-22 05:36] LABS: Creatinine Clr Calc Pharmacy 29.8295
[2022-11-22 06:20] LABS: Glucose Point of Care 147 mg/dL (70-110)
[2022-11-22 07:24] LABS: Glucose Point of Care 186 mg/dL (70-110)
[2022-11-22] MEDS: ipratropium-albuterol 3 mL Neb INHALATION ×4 (07:46→19:51)
[2022-11-22] MEDS: budesonide 0.5 mg/2 mL Neb INHALATION ×2 (07:46→19:51)
--- NOTE | 2022-11-22 08:11 | XRR_ITS ---
PROCEDURE INFORMATION: Exam: XR Chest Exam date and time: 11/22/2022 11:03 AM Age: 77 years old Clinical indication: Shortness of breath; Prior surgery; Surgery type: Cabg x 3; Valve; Additional info: SOB TECHNIQUE: Imaging protocol: Radiologic exam of the chest. Views: 1 view. COMPARISON: CR XR chest 1V portable [id number] 11/20/2022 12:17 PM FINDINGS: Lungs: There is extensive bilateral lower lung predominant consolidation, similar to 11/20/2022. The upper lungs are spared. Pleural spaces: That no pneumothorax. The lateral costophrenic sulci are blunted. Heart/Mediastinum: Cardiomediastinal contours are partially obscured. The cardiac silhouette is mildly enlarged. Bones/joints: Sternal wires are present. There is no displacement to suggest sternal dehiscence. No acute fracture. XR/XR chest 1V portable [id number] IMPRESSION: 1. Stable extensive bilateral pulmonary consolidation since 11/20/2022. 2. Possible small bilateral pleural effusions.
[2022-11-22 08:50] LABS: Basophils % 0.1 %; Hematocrit 27.4 % (42.0-52.0); Hemoglobin 8.5 g/dL (11.7-16.6); Lymphocytes # 0.4 10^3/uL (0.8-4.8); Lymphocytes % 1.3 %; Mean Corpuscular Hemoglobin 28.3 pg (28.0-34.0); Mean Corpuscular Volume 91.3 fl (80-94); Mean Platelet Volume 11.7 fL (7.4-10.4); Monocytes # 4.2 10^3/uL (0.2-0.9); Monocytes % 14.1 %; Neutrophils # 23.72 10^3/uL (1.8-7.7); Neutrophils % 79.5 %; Nucleated Red Blood Cells % 0 %; Platelet Count 175 10^3/cmm (130-400); Red Cell Distribution Width 17.6 % (12.1-15.1); White Blood Count 29.9 10^3/uL (4.0-10.0)
[2022-11-22] MEDS: hyDRALAzine 25 mg Tablet PO ×2 (09:02→17:20)
[2022-11-22] MEDS: amlodipine 10 mg Tablet PO (09:02)
[2022-11-22] MEDS: amiodarone 200 mg Tablet PO ×2 (09:02→17:19)
[2022-11-22] MEDS: potassium chloride ER 20 mEq Tablet PO ×2 (09:03→17:19)
[2022-11-22] MEDS: aspirin 81 mg EC Tablet PO (09:03)
[2022-11-22] MEDS: pantoprazole DR 40 mg Tablet PO (09:03)
[2022-11-22] MEDS: insulin glargine 100 units/1 mL 10 UNIT SUBCUT ×2 (09:08→17:31)
[2022-11-22 09:10] LABS: Anion Gap 17.8 (5-19); Blood Urea Nitrogen 31 mg/dL (8-23); Calcium 8.4 mg/dL (8.5-10.5); Carbon Dioxide 25 mmol/L (22-29); Chloride 93 mmol/L (98-107); Glucose 160 mg/dL (65-115); Osmolality Calculated 282 mOsm/kg (285-295); Potassium 4.8 mmol/L (3.5-5.1); Sodium 131 mmol/L (136-145)
[2022-11-22] MEDS: albumin 25 G/100 ML BAG 60 G IV ×3 (10:27→23:43)
--- NOTE | 2022-11-22 10:39 | PC.NURSE ---
Patient up to chair. He sounds overloaded. Breath sounds raspy and shallow. He is currently satting at 86% on 10L. Albumin running. Nurse discussed with respiratory about what could be done to make patient comfortable. He does not like to wear the bipap for any length of time.
[2022-11-22] MEDS: LORazepam 2 mg/mL INJ 1 mL 1 MG IVP (11:09)
--- NOTE | 2022-11-22 11:13 | PC.OT ---
OT Eval Held - Patient held on this day, therapist attempted eval at 11 on this day. Nursing present in room stating that patient was going on BiPap, had just been given Ativan, and was possibly transferring to ICU.
[2022-11-22 11:15] LABS: Glucose Point of Care 294 mg/dL (70-110)
[2022-11-22 11:34] LABS: ABG PCO2 52.8 mmHg (35-45); Arterial Blood Gas Hematocrit 27.3 % (42-52); Base Excess ABG -1.1 mmol/L (-2.0-2.0); Blood Gas Allen Test Pos; Blood Gas Operator Identificat WALCI; Blood Gas Sample Site Radial, left; Blood Gas Sample Type Arterial; HCO3 ABG 25.7 mmol/L (22-26); Oxygen Device BIPAP
--- NOTE | 2022-11-22 11:57 | ECG_ITS ---
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 Measurements Intervals [place] Rate: 71 P: 227 OK: 129 QRS: 118 QRSD: 126 T: 84 QT: 405 QTc: 440 Interpretive Statements SINUS RHYTHM LEFT POSTERIOR FASCICULAR BLOCK [QRS AXIS > 109, INFERIOR Q] ANTEROLATERAL MYOCARDIAL INFARCTION , OF INDETERMINATE AGE [40+ ms Q WAVE IN I/aVL/V3-V6] Compared to ECG 11/20/2022 14:20:54 Left posterior fascicular block now present Supraventricular rhythm no longer present Myocardial infarct finding still present Electronically Signed On 11-22-2022 22:30:42 CDT by Ariana Schwartz M.D. [id number]
[2022-11-22] MEDS: dexmedetomidine 400 MCG in sodium chloride 0.9% (100 ml) 100 ML IV (12:04)
[2022-11-22] MEDS: insulin lispro 100 unit/1 mL SUBCUT ×3 (12:45→20:44)
[2022-11-22 12:59] LABS: Troponin(5th) Baseline 208 ng/L (0-15)
--- NOTE | 2022-11-22 13:38 | ECG_ITS ---
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 Measurements Intervals [place] Rate: 59 P: -64 TX: 129 QRS: 75 QRSD: 108 T: 133 QT: 441 QTc: 440 Interpretive Statements JUNCTIONAL BRADYCARDIA ANTEROSEPTAL MYOCARDIAL INFARCTION , OF INDETERMINATE AGE [40+ ms Q WAVE IN V1-V4] Compared to ECG 11/22/2022 11:57:19 Sinus rhythm no longer present Left posterior fascicular block no longer present Myocardial infarct finding still present Electronically Signed On 11-22-2022 22:37:45 CDT by Ariana Schwartz M.D. [email or web address].[email or web address]/store/[id number]
[2022-11-22 14:39] LABS: Troponin 5 2HR Delta -5.1 ABS# (0-10)
[2022-11-22 14:40] LABS: Troponin 5 2HR 202.9 ng/L (0-15)
[2022-11-22 16:36] LABS: Glucose Point of Care 264 mg/dL (70-110)
--- NOTE | 2022-11-22 16:37 | PM.PN ---
Subjective Subjective: Patient was seen and examined this morning , during the daytime patient developed significant shortness of breath, supplemental oxygen requirement, was extremely high, x-ray chest and ABG was done, patient was placed on BiPAP, initially was requiring 100% FiO2, Precedex was started as well as Ativan was given, to facilitate patient use of BiPAP, family was informed, as he was at a very low threshold for intubation, CODE STATUS was confirmed.Currently family wants patient to be full code. In the a.m. labs there has been significant elevation in white blood cell count, serum creatinine is also up trended. Repeat troponin trend was done: Baseline troponin was 208-2-hour troponin 202-6-hour troponin pending EKG was done which showed: Sinus rhythm with left posterior fascicular block, subsequent EKG showed junctional bradycardia. Patient was also moved to ICU for close monitoring. Medications: Medication Review Details: Generic Name Dose Route Start Last Admin Trade Name Freq PRN Reason Stop Dose Admin Albuterol/Ipratrop ium 3 ml 11/20/22 20:00 11/22/22 15:30 Ipratropium-Albu terol 3 Ml Neb INHALATION 3 ml QID.RESPIRATORY S CH Administration Amiodarone HCl 200 mg 11/20/22 18:00 11/22/22 09:02 Amiodarone 200 M g Tablet PO 200 mg BID SHIELA Administration Amlodipine Besylat e 10 mg 11/21/22 09:00 11/22/22 09:02 Amlodipine 10 Mg Tablet PO 10 mg DAILY SHIELA Administration Aspirin 81 mg 11/21/22 09:00 11/22/22 09:03 Aspirin 81 Mg Ec Tablet PO 81 mg DAILY SHIELA Administration Atorvastatin Calci um 80 mg 11/20/22 18:00 11/21/22 17:37 Atorvastatin 40 Mg Tablet PO 80 mg QPM SHIELA Administration Budesonide 0.5 mg 11/20/22 20:00 11/22/22 07:46 Budesonide 0.5 M g/2 Ml Neb INHALATION 0.5 mg BID.RESPIRATORY S CH Administration Docusate Sodium 200 mg 11/20/22 21:00 11/21/22 21:01 Docusate Sodium 100 Mg Capsule PO 200 mg BEDTIME SHIELA Administration Enoxaparin Sodium 40 mg 11/20/22 17:00 11/20/22 17:52 Enoxaparin 40 Mg /0.4 Ml Syringe SUBCUT 40 mg Q24H SHIELA Administration Furosemide 40 mg 11/22/22 08:00 11/22/22 04:28 Furosemide 10 Mg /Ml Sdv 4ml IVP Not Given Q12H [facility] Hydralazine HCl 25 mg 11/20/22 18:00 11/22/22 09:02 Hydralazine 25 M g Tablet PO 25 mg BID SHIELA Administration Vancomycin HCl 1,0 00 mg/ 250 mls @ 250 mls /hr 11/20/22 17:30 11/21/22 18:31 Sodium Chloride IV Infused Q24H SHIELA Infusion Protocol Meropenem 500 mg/ Sodium 50 mls @ 100 mls/ hr 11/20/22 18:00 11/22/22 10:41 Chloride IV Infused Q8H SHIELA Infusion Protocol Albumin Human 25 g in 100 mls @ 60 mls/hr 11/22/22 08:30 11/22/22 12:48 Albumin IV 11/23/22 08:29 Infused Q8H SHIELA Infusion Dexmedetomidine HC l 400 mcg/ 104 mls @ 0 mls/h r 11/22/22 11:45 11/22/22 12:04 Sodium Chloride IV 0.2 mcg/kg/hr .Q0M SHIELA 2.95 mls/hr Administration Protocol Per Protocol Insulin Glargine 10 unit 11/20/22 18:00 11/22/22 09:08 Insulin Glargine 100 Units/1 Ml SUBCUT 10 unit BID SHIELA Administration Insulin Human Lisp ro 0 unit 11/20/22 18:00 11/22/22 12:45 Insulin Lispro 1 00 Unit/1 Ml SUBCUT 6 unit WM&BEDTIME SHIELA Administration Protocol Lorazepam 1 mg 11/22/22 10:56 11/22/22 11:09 Lorazepam 2 Mg/M l Inj 1 Ml IVP 1 mg Q4H PRN Administration ANXIETY Methylprednisolone Sodium Succinate 60 mg 11/22/22 12:00 11/22/22 12:44 Methylprednisolo ne Sod Succ 125 Mg /2 Ml Inj IVP 60 mg Q6H SHIELA Administration Metoprolol Tartrat e 12.5 mg 11/20/22 17:45 11/22/22 05:19 Metoprolol Tartr ate 25 Mg Tablet PO 12.5 mg Q12H SHIELA Administration Pantoprazole Sodiu m 40 mg 11/21/22 09:00 11/22/22 09:[address] 40 Mg Tablet PO 40 mg DAILY SHIELA Administration Potassium Chloride 20 meq 11/20/22 18:00 11/22/22 09:03 Potassium Chlori de Er 20 Meq Table t PO 20 meq BID SHIELA Administration Vitals/I&O/Wt Last Vital Signs Temp 98.9 F 11/22/22 12:50 Pulse 53 L 11/22/22 16:00 Resp 27 H 11/22/22 16:00 BP 129/53 11/22/22 16:00 Pulse Ox 95 11/22/22 16:00 O2 Del Method BiPAP 11/22/22 15:25 O2 Flow Rate 10 11/22/22 07:52 FiO2 30 11/22/22 16:00 11/22/22 11/22/22 11/22/22 06:59 14:59 22:59 Intake Total 50 / 1360 390 / 390 Output Total 200 / 1150 1700 / 1700 Balance -150 / 210 -1310 / -1310 Weight last 48 hrs Weight 56.79 kg Weight 58.423 kg Weight 58.06 kg Physical Exam Const: COMMON NORMALS: patient oriented x3 HENMT: COMMON NORMALS: normocephalic and atraumatic HEAD & SCALP: normocephalic and atraumatic Resp: OTHER: Diminished air entry bilaterally, coarse breath sound bilaterally. Cardio: COMMON NORMALS: regular rate, regular rhythm, S1 normal heart sound present, S2 normal heart sound present, No gallops present (Cardio), No murmurs present (Cardio), No rub (Cardio) and Peripheral pulses 2+ throughout RATE: regular rate RHYTHM: regular rhythm HEART SOUNDS: S1 normal heart sound present and S2 normal heart sound present PERIPHERAL PULSES: Peripheral pulses 2+ throughout GI: COMMON NORMALS: Normal to inspection, nondistended, normoactive bowel sounds present, Soft to palpation, non-tender, No hepatosplenomegaly present and no masses AUSCULTATION: Yes normoactive bowel sounds PALPATION: Yes Soft to palpation and Yes No hepatosplenomegaly present RECTAL EXAM: Yes deferred Extremity: COMMON NORMALS: no clubbing, cyanosis or edema and no pedal edema Neuro: COMMON NORMALS: patient oriented x3 Urinary Catheter Management: Ortiz: Cath Placed During This Visit: yes Reason for Continuing Indwelling Catheter: Accurate Measurement of Urinary Output in Critically Ill Patients Urinary Catheter Date of Insertion: 11/20/22 Urinary Catheter Time of Insertion: 17:33 Data 11/22/22 08:39 11/22/22 08:39 Micro: Microbiology 11/21/22 05:00 Gram Stain - Final Sputum - Expectorated Sputum Sputum Culture - Final 11/21/22 13:35 MRSA Culture - Final Nose 11/20/22 12:42 Blood Culture - Preliminary Blood NEGATIVE TO DATE 11/20/22 12:38 Blood Culture - Preliminary Blood NEGATIVE TO DATE A&P Assessment and plan (1) Respiratory failure with hypoxia: (2) COPD (chronic obstructive pulmonary disease): (3) NSTEMI (non-ST elevated myocardial infarction): (4) Diabetes mellitus: (5) HFrEF (heart failure with reduced ejection fraction): (6) Ischemic cardiomyopathy: (7) Anemia: (8) Aortic stenosis: (9) Atrial fibrillation: Plan 7 year old male COPD, atrial fibrillation, coronary artery disease, diabetes mellitus, hypertension, ischemic cardiomyopathy, HFrEF,moderate aortic stenosis came in with chief complaint of Shortness of breath, and increasing oxygen requirement at home. Assessment: Acute on chronic respiratory failure with hypoxia secondary to decompensated heart failure with reduced ejection fraction, pneumonia: CTA chest showed: Worsened patchy bilateral airspace infiltrate ,No pulm embolism. Follow blood culture Sputum Gram stain and culture: Moderate gram-positive cocci in pairs in clusters Recent sputum culture has grown MSSA Procalcitonin:0.25 Currently he is on, vancomycin and meropenem, as well as, Lasix 60 IV twice daily Monitor intake output charting Monitor daily weight Continue telemetry monitoring Monitor electrolytes:K>4,MG>2 Monitor x-ray chest and ABG as needed DuoNebs Continue BiPAP for now to reduce the work of breathing Supplemental oxygen as needed NSTEMI: [id number] Most recent stress test result appreciated: Myocardial perfusion imaging revealing moderate to large area of persistent decreased tracer uptake involving the inferior, inferolateral and all the apical segments suggesting myocardial scarring in the distribution of all the 3?coronary arteries.No significant ischemia was noted in these regions Most recent 2D echo: LV systolic function is moderately reduced with EF of 35 to 40%.?RV is moderately hypokinetic ?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 We will get cardiology on board History of atrial fibrillation: Continue p.o. amiodarone as well as metoprolol Anticoagulation was discontinued on last discharge, patient was requiring blood transfusion and has positive FOBT. History of diabetes: Continue Lantus twice daily,SSI, monitor fingerstick glucose History of hypertension: Continue amlodipine hydralazine metoprolol Marked leukocytosis: Possibly stress reaction He is empirically covered with broad-spectrum antibiotic Event of: 11/22: Patient was seen and examined this morning , during the daytime patient developed significant shortness of breath, supplemental oxygen requirement, was extremely high, x-ray chest and ABG was done, patient was placed on BiPAP, initially was requiring 100% FiO2, Precedex was started as well as Ativan was given, to facilitate patient use of BiPAP, family was informed, as he was at a very low threshold for intubation, CODE STATUS was confirmed.Currently family wants patient to be full code. In the a.m. labs there has been significant elevation in white blood cell count, serum creatinine is also up trended. Repeat troponin trend was done: Baseline troponin was 208-2-hour troponin 202-6-hour troponin pending EKG was done which showed: Sinus rhythm with left posterior fascicular block, subsequent EKG showed junctional bradycardia. Patient was also moved to ICU for close monitoring. Plan for today: We will continue on BiPAP, will add Solu-Medrol IV every 6h, CODE STATUS full code DVT prophylaxis on Lovenox Disposition:SNF placement is being attempted Attestations Medical Necessity Statement*: Needs to be in hospital for management respiratory failure. Coding Level of Care Code Critical Care >/= 30 minutes Diagnoses Respiratory failure with hypoxia J96.91 COPD (chronic obstructive pulmonary disease) J44.9 NSTEMI (non-ST elevated myocardial infarction) I21.4 Diabetes mellitus E11.9 HFrEF (heart failure with reduced ejection fraction) I50.20 Ischemic cardiomyopathy I25.5 Anemia D64.9 Aortic stenosis I35.0 Atrial fibrillation I48.91
[2022-11-22] MEDS: enoxaparin 40 mg/0.4 mL Syringe SUBCUT (16:53)
--- NOTE | 2022-11-22 17:05 | ECG_ITS ---
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 Measurements Intervals [place] Rate: 46 P: -56 [place]: 140 QRS: 76 QRSD: 112 T: 127 QT: 483 QTc: 426 Interpretive Statements SINUS BRADYCARDIA ANTEROSEPTAL MYOCARDIAL INFARCTION , OF INDETERMINATE AGE [40+ ms Q WAVE IN V1-V4] MODERATE T-WAVE ABNORMALITY, CONSIDER LATERAL ISCHEMIA [-0.1+ mV T-WAVE IN I/aVL/V5/V6] Compared to ECG 11/22/2022 13:38:26 T-wave abnormality now present Possible ischemia now present Myocardial infarct finding still present Electronically Signed On 11-22-2022 22:38:20 CDT by Ariana Schwartz M.D. [id number]
[2022-11-22 17:08] LABS: Vancomycin Trough 17.1 ug/mL (10-15)
[2022-11-22] MEDS: vancomycin 1,000 MG in sodium chloride 0.9% 250 ML 250 MG IV (17:09)
[2022-11-22] MEDS: atorvastatin 40 mg Tablet 80 MG PO (17:19)
--- NOTE | 2022-11-22 17:44 | PC.NURSE ---
confirmed with and verified to give albumin
[2022-11-22] MEDS: FUROsemide 10 mg/mL SDV 4mL 40 MG IVP (17:46)
--- NOTE | 2022-11-22 17:47 | PC.NURSE ---
lasix given after albumin per doctor miguel a hernandez
[2022-11-22 18:52] LABS: Troponin 5 6HR Delta -7.1 ng/L (0-12)
[2022-11-22 18:53] LABS: Troponin 5 6HR 200.9 ng/L (0-15)
[2022-11-22 20:39] LABS: Glucose Point of Care 289 mg/dL (70-110)
[2022-11-23] VITALS (58 sets, daily range): BP systolic 103–143; BP diastolic 43–65; PULSE 0–76; RESP 18–38; TEMP 36.4–37.4; O2SAT 80–97; BMI 23.3
[2022-11-23] MEDS: meropenem 500 MG in sodium chloride 0.9% (plus) 50 ML 100 MG IV ×2 (04:49→12:25)
[2022-11-23 04:52] LABS: Hematocrit 22.3 % (42.0-52.0); Hemoglobin 6.9 g/dL (11.7-16.6); Mean Corpuscular HGB Conc 30.9 g/dL (30.0-36.0); Mean Corpuscular Volume 90.7 fl (80-94); Mean Platelet Volume 12.1 fL (7.4-10.4); Platelet Count 134 10^3/cmm (130-400); Red Blood Count 2.46 10^6/uL (4.1-5.3); Red Cell Distribution Width 17.5 % (12.1-15.1); White Blood Count 13.3 10^3/uL (4.0-10.0)
[2022-11-23] MEDS: metoprolol tartrate 25 mg Tablet 12.5 MG PO (04:52)
[2022-11-23 05:05] LABS: Alanine Aminotransferase 19 U/L (0-41); Albumin Level 3.3 g/dL (3.5-5.2); Alkaline Phosphatase 115 U/L (40-130); Anion Gap 19.3 (5-19); Aspartate Amino Transferase 26 U/L (0-40); Blood Urea Nitrogen 41 mg/dL (8-23); Calcium 8.9 mg/dL (8.5-10.5); Carbon Dioxide 23 mmol/L (22-29); Chloride 94 mmol/L (98-107); Globulin 3.2 g/dL (1.3-4.6); Glucose 96 mg/dL (65-115); Osmolality Calculated 282 mOsm/kg (285-295); Potassium 5.3 mmol/L (3.5-5.1); Sodium 131 mmol/L (136-145); Total Bilirubin 0.6 mg/dL (0.15-1.2); Total Protein 6.5 g/dL (6.6-8.7)
[2022-11-23 05:33] LABS: Slide Review Slide Review Perform
[2022-11-23 05:34] LABS: Total Cells Counted 100 (0-100)
[2022-11-23 05:36] LABS: Band Neutrophils Absolute 0.1 10^3/cmm (0.0-1.2); Eosinophils 0 %; Lymphocytes 3 %; Lymphocytes Absolute 0.5 10^3/cmm (1.2-3.4); Monocytes Absolute 0.1 10^3/cmm (0.1-0.6); Platelet Estimate Normal (Normal)
[2022-11-23 05:38] LABS: Anisocytosis 2+; Macrocytosis 1+
[2022-11-23 05:40] LABS: Absolute Neutrophil 12.1 10^3/cmm (1.4-6.5); Burr Cells Trace; Segmented Neutrophils 90 %
[2022-11-23 07:14] LABS: Glucose Point of Care 137 mg/dL (70-110)
[2022-11-23] MEDS: budesonide 0.5 mg/2 mL Neb INHALATION ×2 (07:31→19:55)
[2022-11-23] MEDS: ipratropium-albuterol 3 mL Neb INHALATION ×4 (07:31→19:55)
[2022-11-23] MEDS: FUROsemide 10 mg/mL SDV 4mL 40 MG IVP (08:01)
[2022-11-23] MEDS: pantoprazole DR 40 mg Tablet PO (08:01)
[2022-11-23] MEDS: amiodarone 200 mg Tablet PO ×2 (08:02→18:29)
[2022-11-23] MEDS: potassium chloride ER 20 mEq Tablet PO (08:02)
[2022-11-23] MEDS: aspirin 81 mg EC Tablet PO (08:02)
[2022-11-23] MEDS: hyDRALAzine 25 mg Tablet PO ×2 (08:04→18:29)
[2022-11-23] MEDS: amlodipine 10 mg Tablet PO (08:04)
[2022-11-23] MEDS: insulin glargine 100 units/1 mL 10 UNIT SUBCUT (08:13)
[2022-11-23] MEDS: LORazepam 2 mg/mL INJ 1 mL 1 MG IVP (10:29)
--- NOTE | 2022-11-23 11:30 | PC.PHAR ---
LAST TROUGH 17.1, HIGH TROUGH REQUESTED (15-20) PT HAD RISE IN SCR FROM 1.7 TO 2.0 DRAW ANOTHER TROUGH LEVEL 11/24 [id number]
[2022-11-23 12:20] LABS: Glucose Point of Care 220 mg/dL (70-110)
[2022-11-23] MEDS: insulin lispro 100 unit/1 mL SUBCUT ×3 (12:25→20:50)
--- NOTE | 2022-11-23 12:30 | PC.SOCIAL ---
Pg 2 IMM Explained to pt's Pg 2 IMM. No questions voiced. Provided pt a copy. Initialed, dated, & timed a copy & placed in chart.
--- NOTE | 2022-11-23 15:56 | PM.PN ---
Subjective Subjective: continues to be on oxymask at 11lpm. Did not tolerate BIpap overnight. Currently on a regular diet. cr worsening at 2.0 today, urine output 500 cc last 24 hrs Medications: Reviewed: Yes Medication Review Details: Generic Name Dose Route Start Last Admin Trade Name Jaclyn PRN Reason Stop Dose Admin Albuterol/Ipratrop ium 3 ml 11/20/22 20:00 11/22/22 15:30 Ipratropium-Albu terol 3 Ml Neb INHALATION 3 ml QID.RESPIRATORY S CH Administration Amiodarone HCl 200 mg 11/20/22 18:00 11/22/22 09:02 Amiodarone 200 M g Tablet PO 200 mg BID SHIELA Administration Amlodipine Besylat e 10 mg 11/21/22 09:00 11/22/22 09:02 Amlodipine 10 Mg Tablet PO 10 mg DAILY SHIELA Administration Aspirin 81 mg 11/21/22 09:00 11/22/22 09:03 Aspirin 81 Mg Ec Tablet PO 81 mg DAILY SHIELA Administration Atorvastatin Calci um 80 mg 11/20/22 18:00 11/21/22 17:37 Atorvastatin 40 Mg Tablet PO 80 mg QPM SHIELA Administration Budesonide 0.5 mg 11/20/22 20:00 11/22/22 07:46 Budesonide 0.5 M g/2 Ml Neb INHALATION 0.5 mg BID.RESPIRATORY S CH Administration Docusate Sodium 200 mg 11/20/22 21:00 11/21/22 21:01 Docusate Sodium 100 Mg Capsule PO 200 mg BEDTIME SHIELA Administration Enoxaparin Sodium 40 mg 11/20/22 17:00 11/20/22 17:52 Enoxaparin 40 Mg /0.4 Ml Syringe SUBCUT 40 mg Q24H SHIELA Administration Furosemide 40 mg 11/22/22 08:00 11/22/22 04:28 Furosemide 10 Mg /Ml Sdv 4ml IVP Not Given Q12H SHIELA Hydralazine HCl 25 mg 11/20/22 18:00 11/22/22 09:02 Hydralazine 25 M g Tablet PO 25 mg BID SHIELA Administration Vancomycin HCl 1,0 00 mg/ 250 mls @ 250 mls /hr 11/20/22 17:30 11/21/22 18:31 Sodium Chloride IV Infused Q24H SHIELA Infusion Protocol Meropenem 500 mg/ Sodium 50 mls @ 100 mls/ hr 11/20/22 18:00 11/22/22 10:41 Chloride IV Infused Q8H SHIELA Infusion Protocol Albumin Human 25 g in 100 mls @ 60 mls/hr 11/22/22 08:30 11/22/22 12:48 Albumin IV 11/23/22 08:29 Infused Q8H SHIELA Infusion Dexmedetomidine HC l 400 mcg/ 104 mls @ 0 mls/h r 11/22/22 11:45 11/22/22 12:04 Sodium Chloride IV 0.2 mcg/kg/hr .Q0M SHIELA 2.95 mls/hr Administration Protocol Per Protocol Insulin Glargine 10 unit 11/20/22 18:00 11/22/22 09:08 Insulin Glargine 100 Units/1 Ml SUBCUT 10 unit BID SHIELA Administration Insulin Human Lisp ro 0 unit 11/20/22 18:00 11/22/22 12:45 Insulin Lispro 1 00 Unit/1 Ml SUBCUT 6 unit WM&BEDTIME SHIELA Administration Protocol Lorazepam 1 mg 11/22/22 10:56 11/22/22 11:09 Lorazepam 2 Mg/M l Inj 1 Ml IVP 1 mg Q4H PRN Administration ANXIETY Methylprednisolone Sodium Succinate 60 mg 11/22/22 12:00 11/22/22 12:44 Methylprednisolo ne Sod Succ 125 Mg /2 Ml Inj IVP 60 mg Q6H SHIELA Administration Metoprolol Tartrat e 12.5 mg 11/20/22 17:45 11/22/22 05:19 Metoprolol Tartr ate 25 Mg Tablet PO 12.5 mg Q12H SHIELA Administration Pantoprazole Sodiu m 40 mg 11/21/22 09:00 11/22/22 09:[address] 40 Mg Tablet PO 40 mg DAILY SHIELA Administration Potassium Chloride 20 meq 11/20/22 18:00 11/22/22 09:03 Potassium Chlori de Er 20 Meq Table t PO 20 meq BID SHIELA Administration Vitals/I&O/Wt Last Vital Signs Temp 97.8 F 11/23/22 14:28 Pulse 65 11/23/22 15:01 Resp 27 H 11/23/22 15:01 BP 127/50 11/23/22 14:28 Pulse Ox 95 11/23/22 15:01 O2 Del Method Heated High Flow 11/23/22 15:00 O2 Flow Rate 40 11/23/22 15:01 FiO2 70 11/23/22 15:01 11/23/22 11/23/22 11/23/22 06:59 14:59 22:59 Intake Total 650.892 / 2040.892 170 / 170 Output Total 150 / 2200 Balance 500.892 / -159.108 170 / 170 Weight last 48 hrs Weight 61.717 kg Weight 56.79 kg Physical Exam Narrative: General: No acute distress, chronically ill frail appearing man HEENT: PERRLA, pupils bilaterally equal and reactive, pallors not present Chest: Normal vesicular breath sounds, no added sounds, equal good air entry bilaterally CVS: S1-S2 regular, no murmurs, no tachycardia, no gallops, no rubs Abdomen: Soft, nontender, no organomegaly, bowel sounds present Neuro: No focal deficits, no facial deformity, AO x3, power 5/5 in all limbs Urinary Catheter Management: Ortiz: Cath Placed During This Visit: yes Reason for Continuing Indwelling Catheter: Accurate Measurement of Urinary Output in Critically Ill Patients Urinary Catheter Date of Insertion: 11/20/22 Urinary Catheter Time of Insertion: 17:33 Data 11/23/22 04:06 11/23/22 04:06 Micro: Microbiology 11/21/22 05:00 Gram Stain - Final Sputum - Expectorated Sputum Sputum Culture - Final 11/21/22 13:35 MRSA Culture - Final Nose A&P Assessment and plan (1) Respiratory failure with hypoxia: (2) COPD (chronic obstructive pulmonary disease): (3) NSTEMI (non-ST elevated myocardial infarction): (4) Diabetes mellitus: (5) HFrEF (heart failure with reduced ejection fraction): (6) Ischemic cardiomyopathy: (7) Anemia: (8) Aortic stenosis: (9) Atrial fibrillation: Plan 7 year old male COPD, atrial fibrillation, coronary artery disease, diabetes mellitus, hypertension, ischemic cardiomyopathy, HFrEF,moderate aortic stenosis came in with chief complaint of Shortness of breath, and increasing oxygen requirement at home. Assessment: Acute on chronic respiratory failure with hypoxia secondary to decompensated heart failure with reduced ejection fraction, pneumonia: CTA chest showed: Worsened patchy bilateral airspace infiltrate ,No pulm embolism. Highly suspect patient to be aspirating. .On last admission he was on a modified dysphagia level 4 diet and had multiple choking episodes. The fact that patient leads me to suspect that aspiration may be the possible culprit here. He has been recently appropriately treated for staph pneumonia for a 14-day course of antibiotics. Will obtain repeat swallow eval this admission. We will also go ahead and perform a modified barium swallow to assess extent of his aspiration. He is to be n.p.o. until these assessments are obtained. Discontinue meropenem as completed 5 days empiric course, continue vancomycin while awaiting results of sputum culture are finalized. Follow blood culture Sputum Gram stain and culture: Moderate gram-positive cocci in pairs in clusters Hold Lasix today given worsening kidney function, review of CT scan is primarily showing bilateral infiltrates most concerning for pneumonia/pneumonitis. Additionally also positive for entero-/rhinovirus and acute viral infection is likely contributing to his pneumonitis at this present time. Placed on standard and droplet precautions. Continue weaning oxygen. May be transition between oxy mask and heated high flow. Monitor intake output charting Monitor daily weight Continue telemetry monitoring Monitor electrolytes:K>4,MG>2 Noted to have diffuse wheezing on the left side today, add albuterol as needed nebulization. 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 Consult cardiology for NSTEMI, recurrent admissions for CHF. Currently not optimized to undergo cardiac cath due to his creatinine of 2.0 and also will not be able to lie flat for testing. Additionally on his last admission patient was FOBT positive for which Eliquis was held. Should any stents be necessary and patient needs to be placed on dual antiplatelet therapy, will likely need to perform an EGD and colonoscopy prior to proceeding with cardiac cath. On his last admission it appears patient had refused both the cardiac cath and upper and lower GI endoscopy, however he states that he has reconsidered this decision and would be willing to proceed with any necessary procedures. But first we will need to optimize his respiratory status. History of atrial fibrillation: Continue p.o. amiodarone Patient is bradycardic with heart rate around 55, hold metoprolol Anticoagulation was discontinued on last discharge, patient was requiring blood transfusion and has positive FOBT. History of diabetes: Hold Lantus since he is n.p.o. History of hypertension: Continue amlodipine hydralazine Marked leukocytosis: Possibly stress reaction versus related to acute aspiration events, currently improving He is empirically covered with broad-spectrum antibiotic Event of: 11/22: Patient was seen and examined this morning , during the daytime patient developed significant shortness of breath, supplemental oxygen requirement, was extremely high, x-ray chest and ABG was done, patient was placed on BiPAP, initially was requiring 100% FiO2, Precedex was started as well as Ativan was given, to facilitate patient use of BiPAP, family was informed, as he was at a very low threshold for intubation, CODE STATUS was confirmed.Currently family wants patient to be full code. In the a.m. labs there has been significant elevation in white blood cell count, serum creatinine is also up trended. Repeat troponin trend was done: Baseline troponin was 208-2-hour troponin 202-6-hour troponin pending EKG was done which showed: Sinus rhythm with left posterior fascicular block, subsequent EKG showed junctional bradycardia. Patient was also moved to ICU for close monitoring. Plan for today: We will continue on BiPAP, will add Solu-Medrol IV every 6h, CODE STATUS full code DVT prophylaxis on Lovenox Disposition:SNF placement is being attempted Patient has consistently refused to go to SNF when it is time for discharge on the last 2 admissions. Discussed with him extensively that he is at a high risk of readmission given his debilitated state from multiple admissions. He is not compliant with any dietary modifications when he returns home. He is not following a dysphagia diet and I suspect aspiration is playing a part in his recurrent admissions and hypoxic respiratory failure. Discussed extensively patient's goals of care. Discussed frankly that should his goals be to be as comfortable as possible at home, we could consider a transition to palliative management given his multiple comorbidities, however patient states that he has a lot to live for and would like to have everything possible attempted to have a long life. Attestations Medical Necessity Statement*: ongoing admission to optimize respiratory status, changes as noted above, hold diuresis, stop abx, consult cardiology Coding Level of Care Code Critical Care >/= 30 minutes Diagnoses Respiratory failure with hypoxia J96.91 COPD (chronic obstructive pulmonary disease) J44.9 NSTEMI (non-ST elevated myocardial infarction) I21.4 Diabetes mellitus E11.9 HFrEF (heart failure with reduced ejection fraction) I50.20 Ischemic cardiomyopathy I25.5 Anemia D64.9 Aortic stenosis I35.0 Atrial fibrillation I48.91
--- NOTE | 2022-11-23 16:39 | PC.OT ---
multiple attempts to evaluation this patient today. 1st attempt patient receiving blood product 2nd attempt: patient sleeping soundly. will attempt again tomorrow.
--- NOTE | 2022-11-23 16:49 | PC.NURSE ---
Educated patient family at bedside about NPO status. Patient family verbally expressed understanding.
[2022-11-23] MEDS: vancomycin 1,000 MG in sodium chloride 0.9% 250 ML 250 MG IV (18:26)
[2022-11-23] MEDS: enoxaparin 40 mg/0.4 mL Syringe SUBCUT (18:29)
[2022-11-23] MEDS: atorvastatin 40 mg Tablet 80 MG PO (18:29)
[2022-11-23 19:04] LABS: Glucose Point of Care 235 mg/dL (70-110)
--- NOTE | 2022-11-23 19:09 | P.CONIM_ITS ---
Providers/Reason For Consult Consulting Physician/Specialty*: ALICJA Schwartz MD/cardiology Reason for Consult*: Patient with a history of coronary disease, recurrent heart failure and non-ST elevation myocardial infarction Requesting Physician: Dr. Roche Attending Physician: Belinda Roche MD Primary Care Provider: Paola Moore MD History of Present Illness History of Present Illness Anuj Irving is a 77 year old male with a multiple medical problems, and multiple frequent hospital admissions, he is readmitted to the hospital through the emergency room, where he presented with complaints of progressive shortness of breath. He has a chronically elevated troponin T. He is known to have recurrent heart failure, LV systolic dysfunction, coronary artery disease with a previous coronary bypass surgery. This time also he was found to have elevated troponin T and BNP. Cardiology consult is requested for further cardiac evaluation recommendations. This patient is chronically ill with a myriad of medical problems. He was recently discharged from the hospital where he was admitted with a more or less similar problems. At the time of my examination, patient is in mild respiratory distress. He is not able to give me any details of the history. Most of the information is on the medical records and from the medical staff. No family members are available at this time to give me the details. This patient is known to have severe COPD, recurrent hypoxic respiratory failure, recurrent decompensated heart failure, chronic anemia and GI bleed, requiring blood transfusions and have a poor physical condition. He was recently evaluated by Dr. Chavarria and by Dr. Hernandez. He had a recent Myocardial perfusion imaging revealing multiple areas of fixed defects with no significant reversible defects. In view of his very poor physical condition, multiple medical problems including stage III-IV kidney disease and severe anemia with ongoing GI bleed-thought to be very poor candidate for any interventional cardiac procedures. He was recently taken off his oral anticoagulant because of the anemia and GI bleed. His main complaint at this time is shortness of breath. He denies any chest pain. He has no fever or chills. The chest x-ray revealed features of bilateral pneumonia, possible related to aspiration. He is on multiple antibiotics. Currently he is on a high flow oxygen of 70%. He is being treated with bronchodilators, steroids and other symptomatic measures. In addition to the problems mentioned above, he also is known to have small abdominal aortic aneurysm, moderate aortic valve stenosis and multiple electrolyte abnormalities. Review of Systems Narrative: CONSTITUTIONAL: No fever or chills. EYES: No blurring of vision or other visual disturbances lately. ENT: No hoarseness of voice, auditory disturbances or sore throat. CARDIOVASCULAR: As mentioned above. RESPIRATORY: COPD/chronic respiratory failure GASTROINTESTINAL: History of chronic GI bleed GENITOURINARY: Chronic kidney disease INTEGUMENTARY: No skin rashes or history of skin cancer. NEURO: History of intermittent altered mental status PSYCHIATRIC: No history of psychosis or major depression. HEMATOLOGIC: No bleeding disorders or significant anemia. ENDOCRINE: Type 2 diabetes MUSCULOSKELETAL: No recent joint pain or swelling. ALLERGY/IMMUNOLOGY: As mentioned above. Medications/Allergies Home Medications Medication Instructions Recorded Confirmed Last Taken Type cholecalciferol (vitamin D3) 25 25 mcg PO DAILY 07/12/21 11/20/22 09/09/22 History mcg (1,000 unit) capsule (Vitamin D3) docusate sodium 100 mg capsule 200 mg PO BEDTIME 07/12/21 11/20/22 06/20/22 History omeprazole 40 mg capsule,delayed 40 mg PO BID 07/12/21 11/20/22 09/10/22 History release carboxymethylcellulose sodium 1 % 1 drp ophthalmic (eye) BID PRN Dry 11/26/21 11/20/22 Unknown History eye liquid gel drops (Refresh Eye(S) Liquigel) fluticasone 100 mcg-salmeterol 50 1 inh inhalation BID 11/26/21 11/20/22 09/09/22 History mcg/dose blistr powdr for inhalation (Advair Diskus) ipratropium 20 mcg-albuterol 100 1 puff inhalation Q6H PRN 11/26/21 11/20/22 Unknown History mcg/actuation mist for inhalation Shortness Of Breath (Combivent Respimat) albuterol sulfate 90 mcg/actuation 2 inh inhalation Q4H PRN shortness 08/16/22 11/20/22 11/14/22 Rx aerosol inhaler of breath or wheezing #8.5 grams ipratropium 0.5 mg-albuterol 3 mg 3 ml inhalation Q4H PRN shortness 11/05/22 11/20/22 Unknown Rx (2.5 mg base)/3 mL nebulization of breath or wheezing #90 mL soln atorvastatin 80 mg tablet 80 mg PO QPM 11/07/22 11/20/22 Unknown History glimepiride 4 mg tablet 2 mg PO QAM 11/07/22 11/20/22 Unknown History insulin glargine 100 unit/mL (3 10 unit SUBCUT BID 11/07/22 11/20/22 Unknown History mL) subcutaneous pen (Lantus Solostar U-100 Insulin) aspirin 81 mg tablet,delayed 81 mg PO DAILY #0 tabs 11/14/22 11/20/22 Unknown Rx release metoprolol tartrate 25 mg tablet 12.5 mg PO Q12H 30 days #30 tabs 11/14/22 11/20/22 11/14/22 Rx ipratropium bromide 17 2 puff inhalation TID 11/15/22 11/20/22 Unknown History mcg/actuation HFA aerosol inhaler (Atrovent HFA) amlodipine 10 mg tablet 10 mg PO DAILY 11/16/22 11/20/22 Unknown History hydralazine 25 mg tablet 25 mg PO BID 11/16/22 11/20/22 Unknown History multivitamin 1 tab PO DAILY 11/16/22 11/20/22 Unknown History neomycin 3.5 mg/g-polymyxin B See Rx Instructions .Route .COMPLEX 11/16/22 11/20/22 Unknown History 10,000 unit/g-dexameth 0.1 % eye oint ncrludho-pddlkknehd-nummjgld 3.5 1 applic ophthalmic (eye) TID 11/16/22 11/20/22 Unknown History mg-400 unit-10,000 unit/gram eye oint amiodarone 200 mg tablet 200 mg PO BID #60 tabs 11/19/22 11/20/22 Unknown Rx furosemide 40 mg tablet (Lasix) 40 mg PO BID #60 tabs 11/19/22 11/20/22 Unknown Rx potassium chloride 20 mEq 20 meq PO BID #60 tabs 11/19/22 11/20/22 Unknown Rx tablet,extended release(part/cryst) (Klor-Con M) prednisone 5 mg tablet 5 mg PO BID 11/20/22 11/20/22 Unknown History Allergies Allergy/AdvReac Type Severity Reaction Status Date / Time No Known Allergies Allergy Verified 11/15/22 03:28 Current Medications Generic Name Dose Route Start Last Admin Trade Name Freq PRN Reason Stop Dose Admin Albuterol/Ipratropium 3 ml 11/20/22 20:00 11/23/22 14:59 Ipratropium-Albuterol 3 Ml Neb INHALATION 3 ml QID.RESPIRATORY SHIELA Administration Amiodarone HCl 200 mg 11/20/22 18:00 11/23/22 18:29 Amiodarone 200 Mg Tablet PO 200 mg BID SHIELA Administration Amlodipine Besylate 10 mg 11/21/22 09:00 11/23/22 08:04 Amlodipine 10 Mg Tablet PO 10 mg DAILY SHIELA Administration Aspirin 81 mg 11/21/22 09:00 11/23/22 08:02 Aspirin 81 Mg Ec Tablet PO 81 mg DAILY SHIELA Administration Atorvastatin Calcium 80 mg 11/20/22 18:00 11/23/22 18:29 Atorvastatin 40 Mg Tablet PO 80 mg QPM SHIELA Administration Budesonide 0.5 mg 11/20/22 20:00 11/23/22 07:31 Budesonide 0.5 Mg/2 Ml Neb INHALATION 0.5 mg BID.RESPIRATORY SHIELA Administration Docusate Sodium 200 mg 11/20/22 21:00 11/22/22 20:30 Docusate Sodium 100 Mg Capsule PO Not Given BEDTIME SHIELA Enoxaparin Sodium 40 mg 11/20/22 17:00 11/23/22 18:29 Enoxaparin 40 Mg/0.4 Ml Syringe SUBCUT 40 mg Q24H SHIELA Administration Furosemide 40 mg 11/22/22 08:00 11/23/22 08:01 Furosemide 10 Mg/Ml Sdv 4ml IVP 40 mg Q12H SHIELA Administration Hydralazine HCl 25 mg 11/20/22 18:00 11/23/22 18:29 Hydralazine 25 Mg Tablet PO 25 mg BID SHIELA Administration Vancomycin HCl 1,000 mg/ 250 mls @ 250 mls/hr 11/20/22 17:30 11/23/22 18:26 Sodium Chloride IV 250 mls/hr Q24H SHIELA Administration Protocol Dexmedetomidine HCl 400 mcg/ 104 mls @ 0 mls/hr 11/22/22 11:45 11/23/22 05:42 Sodium Chloride IV 0 mcg/kg/hr .Q0M SHIELA 0 mls/hr Titration Protocol Per Protocol Insulin Glargine 10 unit 11/20/22 18:00 11/23/22 08:13 Insulin Glargine 100 Units/1 Ml SUBCUT 10 unit BID SHIELA Administration Insulin Human Lispro 0 unit 11/20/22 18:00 11/23/22 12:25 Insulin Lispro 100 Unit/1 Ml SUBCUT 4 unit WM&BEDTIME SHIELA Administration Protocol Lorazepam 1 mg 11/22/22 10:56 11/23/22 10:29 Lorazepam 2 Mg/Ml Inj 1 Ml IVP 1 mg Q4H PRN Administration ANXIETY Methylprednisolone Sodium Succinate 60 mg 11/23/22 10:00 11/23/22 10:13 Methylprednisolone Sod Succ 125 Mg/2 Ml Inj IVP 60 mg Q12H SHIELA Administration Metoprolol Tartrate 12.5 mg 11/20/22 17:45 11/23/22 04:52 Metoprolol Tartrate 25 Mg Tablet PO 12.5 mg Q12H SHIELA Administration Pantoprazole Sodium 40 mg 11/21/22 09:00 11/23/22 08:[address] 40 Mg Tablet PO 40 mg DAILY SHIELA Administration PFSH Acute PFSH: Medical History Abdominal pain Acidosis, lactic Acute bacterial conjunctivitis of left eye Acute exacerbation of chronic obstructive airways disease Acute exacerbation of chronic obstructive pulmonary disease (COPD) Acute hyperkalemia Acute kidney injury Acute renal failure Acute respiratory failure with hypoxia NADER (acute kidney injury) Anemia Aortic stenosis Atrial fibrillation Atrial fibrillation Atrial fibrillation with RVR Bradycardia CHF exacerbation Chronic kidney disease (CKD), stage III (moderate) Chronic kidney failure Congestive heart failure (CHF) COPD (chronic obstructive pulmonary disease) COPD (chronic obstructive pulmonary disease) COPD exacerbation Coronary artery disease Dehydration Diabetes mellitus Diarrhea Digoxin overdose HFrEF (heart failure with reduced ejection fraction) HTN (hypertension) Hyperkalemia Hypomagnesemia Hyponatremia Hypoxia Ischemic cardiomyopathy Moderate aortic stenosis NSTEMI (non-ST elevated myocardial infarction) Pneumonia Pneumonia Poisoning by calcium-channel blockers Rhabdomyolysis Sepsis Suspected 2019-nCoV infection Symptomatic bradycardia Vomiting Surgical History History of mitral valve replacement with bioprosthetic valve 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 Family History Mother Stroke Denies family history of Diabetes CAD (coronary artery disease) Clotting disorder Dementia Social History Smoking and tobacco status: light tobacco smoker Quit status (tobacco): has quit using tobacco Year quit tobacco: 2017 Former quit date comment: smoked 1 pack per day x 36 years Alcohol intake: current Substance/Drug Use: never Household members: spouse Housing: House 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 Vital Signs Temp 97.8 F 11/23/22 14:28 Pulse 62 11/23/22 16:30 Resp 22 H 11/23/22 16:30 BP 131/52 11/23/22 16:30 Pulse Ox 94 11/23/22 15:30 O2 Del Method Heated High Flow 11/23/22 15:30 O2 Flow Rate 40 11/23/22 15:01 FiO2 70 11/23/22 15:01 11/23/22 11/23/22 11/23/22 06:59 14:59 22:59 Intake Total 650.892 / 2040.892 170 / 170 350 / 520 Output Total 150 / 2200 650 / 650 Balance 500.892 / -159.108 170 / 170 -300 / -130 Weight last 48 hrs Weight 136 lb 1 oz Weight 125 lb 3.2 oz Physical Exam Narrative: GENERAL: The patient is alert and in mild respiratory distress HEENT: Severe pallor, no icterus or lymphadenopathy.Oral cavity: There are no mucous membrane lesions. NECK: Trachea appears to be central. No masses noted. No JVD or thyromegaly appreciated. RESPIRATORY: Chest is symmetrical. No intercostals muscle retraction or any accessory muscle activation. There is no chest wall tenderness. Breath sounds are heard bilaterally. Diffuse expiratory wheezing and coarse crackles. BREASTS: Deferred. HEART: The heart sounds are normal. No S3 or S4. Ejection systolic murmur grade 3 or 6 in the aortic area. No diastolic murmurs. No pericardial rub ABDOMEN: No vessel pulsations or distention. No tenderness. No organomegaly appreciated. Bowel sounds are normally heard. : Deferred. RECTAL: Deferred. LYMPHATIC: No lymphadenopathy noted in the neck. EXTREMITIES: The dorsalis pedis and posterior pulses are weak bilaterally. MUSCULOSKELETAL: No acute joint deformities or swelling SKIN: There are no significant rashes or ecchymosis NEUROPSYCHIATRIC: The patient is alert and oriented place and person. Moving all the extremities. No focal motor deficits. Urinary Catheter Management: Ortiz: Cath Placed During This Visit: yes Reason for Continuing Indwelling Catheter: Accurate Measurement of Urinary Output in Critically Ill Patients Urinary Catheter Date of Insertion: 11/20/22 Urinary Catheter Time of Insertion: 17:33 Data 11/24/22 02:36 11/24/22 02:36 Other Labs: Laboratory Last Values WBC 20.4 10^3/uL (4.0-10.0) H 11/24/22 02:36 RBC 3.19 10^6/uL (4.1-5.3) L 11/24/22 02:36 Hgb 9.1 g/dL (11.7-16.6) L D 11/24/22 02:36 Hct 28.4 % (42.0-52.0) L 11/24/22 02:36 MCV 89.0 fl (80-94) 11/24/22 02:36 MCH 28.5 pg (28.0-34.0) 11/24/22 02:36 MCHC 32.0 g/dL (30.0-36.0) 11/24/22 02:36 RDW 17.0 % (12.1-15.1) H 11/24/22 02:36 Plt Count 195 10^3/cmm (130-400) D 11/24/22 02:36 MPV 12.6 fL (7.4-10.4) H 11/24/22 02:36 Neut % (Auto) 87.7 % 11/24/22 02:36 Lymph % (Auto) 1.0 % 11/24/22 02:36 [place] % (Auto) 6.6 % 11/24/22 02:36 Eos % (Auto) 0.0 % 11/24/22 02:36 Baso % (Auto) 0.1 % 11/24/22 02:36 Neut # (Auto) 17.86 10^3/uL (1.8-7.7) H 11/24/22 02:36 Lymph # (Auto) 0.2 10^3/uL (0.8-4.8) L 11/24/22 02:36 [place] # (Auto) 1.3 10^3/uL (0.2-0.9) H 11/24/22 02:36 Eos # (Auto) 0.0 10^3/uL (0.0-0.8) 11/24/22 02:36 Baso # (Auto) 0.0 10^3/uL (0.0-0.1) 11/24/22 02:36 Nucleated RBC % (auto) 0.1 % 11/24/22 02:36 Total Counted 100 (0-100) 11/23/22 04:06 Atypical Lymphs % 1.0 % (0-5) 11/23/22 04:06 Absolute Neutrophils 12.1 10^3/cmm (1.4-6.5) H 11/23/22 04:06 Segmented Neutrophils 90 % 11/23/22 04:06 Abs Segm Neuts (Man) 12.0 10/cmm (1.6-7.1) H 11/23/22 04:06 Band Neutrophils 1.0 % 11/23/22 04:06 Abs Band Neuts (Man) 0.1 10^3/cmm (0.0-1.2) 11/23/22 04:06 Absolute Lymphocytes 0.5 10^3/cmm (1.2-3.4) L 11/23/22 04:06 Lymphocytes (Manual) 3 % 11/23/22 04:06 Monocytes (Manual) 1.0 % 11/23/22 04:06 Absolute Monocytes 0.1 10^3/cmm (0.1-0.6) 11/23/22 04:06 Eosinophils (Manual) 0 % 11/23/22 04:06 Absolute Eosinophils 0.0 10^3/cmm (0.0-0.7) 11/23/22 04:06 Basophils (Manual) 0.0 % 11/23/22 04:06 Absolute Basophils 0.0 10^3/cmm (0.0-0.2) 11/23/22 04:06 Metamyelocytes 1.0 % 11/23/22 04:06 Myelocytes 3.0 % 11/23/22 04:06 Nucleated RBCs # 0.0 /100WBC 11/24/22 02:36 Platelet Estimate Normal (Normal) 11/23/22 04:06 Anisocytosis 2+ H 11/23/22 04:06 Macrocytosis 1+ H 11/23/22 04:06 [place] Cells Trace 11/23/22 04:06 PT 13.80 SECONDS (12.1-14.9) 11/20/22 11:40 INR 1.02 (0.8-1.2) 11/20/22 11:40 Specimen Type Arterial 11/22/22 11:23 Sample Site Radial, left 11/22/22 11:23 ABG pH 7.30 (7.35-7.45) L 11/22/22 11:23 ABG pCO2 52.8 mmHg (35-45) H 11/22/22 11:23 ABG pO2 77.0 mmHg (80.0-100.0) L 11/22/22 11:23 ABG HCO3 25.7 mmol/L (22-26) 11/22/22 11:23 ABG Base Excess -1.1 mmol/L (-2.0-2.0) 11/22/22 11:23 Lei Test Pos 11/22/22 11:23 Hematocrit 27.3 % (42-52) L 11/22/22 11:23 Hgb O2 Saturation 87.3 % (95-100) L 11/20/22 12:17 Carboxyhemoglobin 2.6 %THgb (0.4-20.1) 11/20/22 12:17 Methemoglobin 0.3 % (0.4-1.5) L 11/20/22 12:17 Total Hemoglobin 8.6 g/dL (14-18) L 11/20/22 12:17 O2 Delivery Device Bipap 11/22/22 11:23 O2 Liters/Min 6.0 % 11/20/22 12:17 FiO2 100.0 % 11/22/22 11:23 Manager Security And Safety ID [place] 11/22/22 11:23 Sodium 133 mmol/L (136-145) L 11/24/22 02:36 Potassium 5.7 mmol/L (3.5-5.1) H 11/24/22 02:36 Chloride 94 mmol/L (98-107) L 11/24/22 02:36 Carbon Dioxide 22 mmol/L (22-29) 11/24/22 02:36 Anion Gap 22.7 (5-19) H 11/24/22 02:36 BUN 62 mg/dL (8-23) H 11/24/22 02:36 Creatinine 2.1 mg/dL (0.7-1.2) H 11/24/22 02:36 GFR Calculation Not Reportable 11/24/22 02:36 Glucose 132 mg/dL (65-115) H 11/24/22 02:36 POC Glucose 224 mg/dL (70-110) H 11/23/22 20:32 Calculated Osmolality 295 mOsm/kg (285-295) 11/24/22 02:36 Lactic Acid 1.4 mmol/L (0.5-2.2) 11/20/22 12:38 Calcium 9.3 mg/dL (8.5-10.5) 11/24/22 02:36 Magnesium 1.9 mg/dL (1.7-2.3) 11/21/22 03:05 Total Bilirubin 0.7 mg/dL (0.15-1.2) 11/24/22 02:36 AST 31 U/L (0-40) 11/24/22 02:36 ALT 22 U/L (0-41) 11/24/22 02:36 Alkaline Phosphatase 166 U/L (40-130) H 11/24/22 02:36 Troponin T Baseline 208 ng/L (0-15) H* 11/22/22 12:13 Troponin T 120 Minute 202.9 ng/L (0-15) H 11/22/22 14:04 Delta Troponin T -5.1 ABS# (0-10) L 11/22/22 14:04 Troponin T Hi Sens 6Hr 200.9 ng/L (0-15) H 11/22/22 18:18 Troponin T Hi Sens 6Hr Delta -7.1 ng/L (0-12) L 11/22/22 18:18 NT-Pro-B Natriuret Pep 9199 pg/mL (0-450) H 11/20/22 11:40 Total Protein 7.1 g/dL (6.6-8.7) 11/24/22 02:36 Albumin 3.4 g/dL (3.5-5.2) L 11/24/22 02:36 Globulin 3.7 g/dL (1.3-4.6) 11/24/22 02:36 Procalcitonin 0.25 ng/mL (0-0.5) 11/21/22 03:05 Nasal Influ A H1 2009 PCR Not detected (NOT DETECT) 11/20/22 15:24 Vancomycin Trough 17.1 ug/mL (10-15) H 11/22/22 16:11 Adenovirus (PCR) Not detected (NOT DETECT) 11/20/22 15:24 C. pneumoniae DNA (PCR) Not detected (NOT DETECT) 11/20/22 15:24 Coronavirus 229E (PCR) Not detected (NOT DETECT) 11/20/22 15:24 Human Metapneumovir PCR Not detected (NOT DETECT) 11/20/22 15:24 Influenza A (H1) PCR Not detected (NOT DETECT) 11/20/22 15:24 Influenza A (H3) PCR Not detected (NOT DETECT) 11/20/22 15:24 Influenza Type A (PCR) Not detected (NOT DETECT) 11/20/22 15:24 Influenza Type B (PCR) Not detected (NOT DETECT) 11/20/22 15:24 M. pneumoniae (PCR) Not detected (NOT DETECT) 11/20/22 15:24 Parainfluenza 1 (PCR) Not detected (NOT DETECT) 11/20/22 15:24 Parainfluenza 2 (PCR) Not detected (NOT DETECT) 11/20/22 15:24 Parainfluenza 3 (PCR) Not detected (NOT DETECT) 11/20/22 15:24 Parainfluenza 4 (PCR) Not detected (NOT DETECT) 11/20/22 15:24 RSV Type A (PCR) Not detected (NOT DETECT) 11/20/22 15:24 RSV Type B (PCR) Not detected (NOT DETECT) 11/20/22 15:24 Entero/Rhino (PCR) Detected (NOT DETECT) A 11/20/22 15:24 SARS-CoV-2 (PCR) Not detected (NOT DETECT) 11/20/22 15:24 Blood Type O Negative 11/23/22 09:35 Rho(D) Type Negative 11/23/22 09:35 Antibody Screen Positive 11/23/22 09:35 Antibody Identification Anti-Fya 11/23/22 09:35 Crossmatch See Detail 11/23/22 09:35 EKG 1: My Interpretation: Sinus bradycardia with a heart rate of 46 bpm poor R wave progression suggesting old anteroseptal myocardial infarction. T inversions in lead I and aVL. Small Q waves in the inferior leads suggesting old inferior wall myocardial infarction. Some nonspecific ST changes in the precordial leads. Other data: ECHO 11/10/2022 LV systolic function is moderately reduced with EF of 35 to 40%. ?RV is moderately hypokinetic ?Possibly prosthetic mitral valve seen.? Mild mitral ?regurgitation ?Mild to moderate aortic stenosis ?Mild tricuspid regurgitation ?Trace pulmonic regurgitation ?Compared to prior echocardiogram from 06/21/2022, LV systolic ?function is slightly reduced. Myocardial perfusion imaging on 11/13/2022 ?1.? Myocardial perfusion imaging revealing moderate to large area of persistent ?decreased tracer uptake involving the inferior, inferolateral and all the ?apical segments suggesting myocardial scarring in the distribution of all the 3 ?coronary arteries.? No significant ischemia was noted in these regions. ?2.? Markedly diminished LV ejection fraction of 26%. ?3.? Wall motion abnormalities as mentioned above. ?4.? Moderately dilated LV cavity, with an end-systolic volume of 141 ml A&P Assessment and plan (1) HFrEF (heart failure with reduced ejection fraction): Patient seems to have intermittent decompensated heart failure. This could be due to multiple factors. His severe COPD exacerbated with the pneumonia, severe anemia are contributing factors. He may be carefully treated with IV diuretics. (2) NSTEMI (non-ST elevated myocardial infarction): Patient apparently was found to have no significant s ischemia, based on the perfusion scan. In view of the chronically elevated troponin T and recurrent heart failure, he may benefit from a repeat cardiac catheterization. However he is at high risk for severe bleeding with antiplatelet drugs especially with ongoing GI bleed. His ongoing GI bleed need to be properly addressed before going ahead with any interventional or invasive cardiac procedures especially since he has no ongoing chest pains. (3) Diabetes mellitus: Requires aggressive management (4) Respiratory failure with hypoxia: Patient is on high flow oxygen 70%. He is on multiple antibiotics for possible aspiration pneumonia (5) Atrial fibrillation: He is currently in a regular rhythm. He was taken off of the oral anticoagulant because of the bleed. (6) Aortic stenosis: The seems to be moderate. Plan His other problems are Chronic kidney disease with acute kidney injury Electrolyte imbalance Generalized emaciation I was told that the patient and family were informed about his overall poor prognosis in view of the multiple medical problems. At this point he is not in a position to go ahead with any invasive interventional cardiac procedures. I will be only happy to discuss his condition with the patient's family. In the meanwhile I would optimize his medical treatment to the best we can. Consult Attestations Medical Necessity Statement: Deferred to the primary Coding Level of Care Code 73696 Diagnoses HFrEF (heart failure with reduced ejection fraction) I50.20 NSTEMI (non-ST elevated myocardial infarction) I21.4 Diabetes mellitus E11.9 Respiratory failure with hypoxia J96.91 Atrial fibrillation I48.91 Aortic stenosis I35.0
[2022-11-23 20:45] LABS: Glucose Point of Care 224 mg/dL (70-110)
[2022-11-24] VITALS (39 sets, daily range): BP systolic 73–158; BP diastolic 35–75; PULSE 0–80; RESP 0–46; TEMP 36.4–37; O2SAT 82–96; BMI 21.2
[2022-11-24 04:12] LABS: Basophils % 0.1 %; Hematocrit 28.4 % (42.0-52.0); Hemoglobin 9.1 g/dL (11.7-16.6); Lymphocytes # 0.2 10^3/uL (0.8-4.8); Mean Corpuscular Hemoglobin 28.5 pg (28.0-34.0); Mean Platelet Volume 12.6 fL (7.4-10.4); Monocytes # 1.3 10^3/uL (0.2-0.9); Monocytes % 6.6 %; Neutrophils # 17.86 10^3/uL (1.8-7.7); Neutrophils % 87.7 %; Nucleated Red Blood Cells % 0.1 %; Platelet Count 195 10^3/cmm (130-400); Red Blood Count 3.19 10^6/uL (4.1-5.3); White Blood Count 20.4 10^3/uL (4.0-10.0)
[2022-11-24 04:20] LABS: Alanine Aminotransferase 22 U/L (0-41); Albumin Level 3.4 g/dL (3.5-5.2); Alkaline Phosphatase 166 U/L (40-130); Anion Gap 22.7 (5-19); Aspartate Amino Transferase 31 U/L (0-40); Blood Urea Nitrogen 62 mg/dL (8-23); Calcium 9.3 mg/dL (8.5-10.5); Carbon Dioxide 22 mmol/L (22-29); Chloride 94 mmol/L (98-107); Globulin 3.7 g/dL (1.3-4.6); Glucose 132 mg/dL (65-115); Osmolality Calculated 295 mOsm/kg (285-295); Potassium 5.7 mmol/L (3.5-5.1); Sodium 133 mmol/L (136-145); Total Bilirubin 0.7 mg/dL (0.15-1.2); Total Protein 7.1 g/dL (6.6-8.7)
[2022-11-24 05:15] LABS: Slide Review Slide Review Perform
[2022-11-24] MEDS: budesonide 0.5 mg/2 mL Neb INHALATION (07:20)
[2022-11-24] MEDS: ipratropium-albuterol 3 mL Neb INHALATION ×2 (07:20→12:11)
[2022-11-24 07:24] LABS: Glucose Point of Care 207 mg/dL (70-110)
--- NOTE | 2022-11-24 07:30 | PC.NURSE ---
Upon morning assessment, patient found to have crackles audible from the doorway, has an increase work of breathing, appears to be exhausted. Agreeable to bipap at this time. Nurse alerted Dr pollard. Received orders for a one time dose of lasix, an ABG, and bipap.
[2022-11-24] MEDS: insulin lispro 100 unit/1 mL SUBCUT ×2 (07:34→12:06)
[2022-11-24] MEDS: FUROsemide 10 mg/mL SDV 4mL 40 MG IVP (07:34)
--- NOTE | 2022-11-24 08:20 | XR_ITS ---
WS: [id number] XR chest 1V portable [id number] REASON FOR EXAM: worsening hypoxia, reduced left air entry FINDINGS: The chest appears relatively unchanged compared to the examination of 11/22/2022. Previous coronary artery bypass surgery and aortic valve replacement. The heart is not significantly enlarged. Diffuse reticular and groundglass opacities in the lower lung fraga. No new finding is identified. No interval atelectasis or pleural effusion. XR/XR chest 1V portable [id number] IMPRESSION: Stable abnormal chest.
[2022-11-24 08:30] LABS: ABG PCO2 58.9 mmHg (35-45); ABG PH Result 7.21 (7.35-7.45); Alveolar-Arterial Oxygen Gradi 34.9 mmHg (5-10); Arterial Blood Gas Hematocrit 29.8 % (42-52); Base Excess ABG -4.8 mmol/L (-2.0-2.0); Blood Gas Allen Test Pos; Blood Gas Operator Identificat GD; Blood Gas Sample Site Radial, right; Blood Gas Sample Type Arterial; Carboxyhemoglobin 1.5 %THgb (0.4-20.1); HCO3 ABG 23.4 mmol/L (22-26); HGB O2 Sat 92.2 % (95-100); Ionized Calcium Level - ABG 1.3 mmol/L (1.1-1.4); Methemoglobin 0.5 % (0.4-1.5); Oxygen Device BIPAP; Oxygen Saturation ABG 94.1; Potassium Level - ABG 5.8 mmol/L (3.5-5.0); Total Hemoglobin 9.7 g/dL (14-18)
[2022-11-24] MEDS: meropenem 500 MG in sodium chloride 0.9% (plus) 50 ML 100 MG IV (09:15)
[2022-11-24] MEDS: insulin regular-human 10 UNIT in SYRINGE 1 EACH 100 UNIT IVP (09:19)
--- NOTE | 2022-11-24 09:22 | PC.NURSE ---
Nurse attempted to give PO amiodarone. Unable to give, patient is unable to stay awake long enough to eat the medication crushed into applesauce.
[2022-11-24 10:12] LABS: Glucose Point of Care 288 mg/dL (70-110)
--- NOTE | 2022-11-24 11:01 | PC.NURSE ---
Patient has declined. Unresponsive to painful stimuli. CHecked BG and it is over 200. Nurse alerted Dr pollard. No new orders at this time.
[2022-11-24 11:36] LABS: Glucose Point of Care 262 mg/dL (70-110)
--- NOTE | 2022-11-24 12:22 | PC.SLP ---
Orders for MBS received 11/23/22. Since patient was in isolation and requiring an oxygen mask, Dr. Saunders was contacted about the feasibility of completing the study. Radiology was ok with seeing the patient as staff would gown, mask, and glove up. However, the procedure could not be done on 11/23/22 due to scheduling. The plan was to complete the MBS on 11/24, however, the patient is now on Bipap and possibly transitioning to hospice or comfort care. Will continue to monitor pending further developments.
--- NOTE | 2022-11-24 13:16 | PC.OT ---
OT EVALUATION HELD THIS DATE DUE TO PATIENT UNRESPONSIVE AT 1100.
--- NOTE | 2022-11-24 14:43 | P.PN_ITS ---
Subjective Subjective: Patient's respiratory status has continued to worsen through the night. This morning he is increasingly lethargic and somnolent. ABG taken this morning showed pH 7.2/CO2 58 point //. He was placed on BiPAP ventilation, however and spite of being on BiPAP for most of the morning he had no meaningful improvement in his mentation. He continues to be tachypneic. He has increasingly become more lethargic during course of the day. My known he was unable to answer any basic questions. Does not respond to painful stimulus. With these changes his had been continuously updated during the morning and afternoon hours. The whole family presented at bedside given Patient's critical illness. Explained extensively that patient has had multiple hospital admissions over the past 2 weeks for Staphylococcus pneumonia, significant amount of scarring and infiltrates are still seen on his chest CT and x-rays. Patient has known heart failure, has had recent NSTEMI. Keeps going into in termittent flash pulmonary edema because of heart failure and aortic stenosis. On this current admission he has also developed NADER, he is urine output is falling and he is developing hyperkalemia. His troponins continue to be elevated, he is not currently a candidate to undergo cardiac intervention because of his NADER and inability to lie flat. In spite of being maximally medically treated with antibiotics, diuretics, steroids, and other cardiac medications as appropriate not only on this admis slava but also the prior admissions over the past 2 weeks, he has had no meaningful improvement in his quality of life. He understands his grave prognosis and has elected to transition patient to comfort care management. Medications: Reviewed: Yes Vitals/I&O/Wt Last Vital Signs Temp 97.8 F 11/24/22 12:00 Pulse 64 11/24/22 13:37 Resp 23 H 11/24/22 12:00 BP 133/46 11/24/22 12:00 Pulse Ox 96 11/24/22 13:37 O2 Del Method BiPAP 11/24/22 12:00 O2 Flow Rate 40 11/24/22 12:00 FiO2 60 11/24/22 13:37 11/23/22 11/24/22 11/24/22 22:59 06:59 14:59 Intake Total 600 / 770 0 / 770 Output Total 900 / 900 300 / 1200 200 / 200 Balance -300 / -130 -300 / -430 -200 / -200 Weight last 48 hrs Weight 56.245 kg Weight 61.717 kg Physical Exam Narrative: General: currently on a Bipap, lethargic, moans occassionally, does not answer any questions this afternoon HEENT: PERRLA, pupils bilaterally equal and reactive Chest: bronchial breath sounds left lung , scattered wheeze CVS: S1-S2 regular, no murmurs, no tachycardia, no gallops, no rubs Abdomen: Soft, nontender, bowel sounds present Neuro: lethargic, does not follow any commands Urinary Catheter Management: Ortiz: Cath Placed During This Visit: yes Reason for Continuing Indwelling Catheter: Accurate Measurement of Urinary Output in Critically Ill Patients Urinary Catheter Date of Insertion: 11/20/22 Urinary Catheter Time of Insertion: 17:33 Data 11/24/22 02:36 11/24/22 02:36 A&P Assessment and plan (1) Ischemic cardiomyopathy: (2) Aortic stenosis: (3) Atrial fibrillation: (4) Anemia: (5) HFrEF (heart failure with reduced ejection fraction): (6) Diabetes mellitus: (7) NSTEMI (non-ST elevated myocardial infarction): (8) Congestive heart failure: (9) Community acquired pneumonia: (10) Elevated troponin: (11) Respiratory failure with hypoxia: (12) COPD (chronic obstructive pulmonary disease): (13) Need for comfort care: Plan patient with mutliple comorbidities, recurrent hospital admissions over the last 2 weeks for pneumonia, CHF, acute on chronic hypoxic hypercapnic respiratory fa ilure, aortic stenosis, history of CAD with CABG, recent NSTEMI. He has had worsening respiratory status during course of the night and this morning landed on BiPAP. See events as noted above. After extensive discussion with patient's family including his Alexis Oviedo, patient's brother and sister and niece who are currently at bedside, patient has been transitioned to comfort care management only. Discontinue steroids, discontinue antibiotics, remove BiPAP, as needed morphine and Ativan as needed for patient comfort. Attestations Medical Necessity Statement*: Transition of care to comfort care management Coding Level of Care Code 03320 High Time for a total of 90 minutes, includes reviewing past or interval history, examining/interviewing patient, placing orders, counseling patient/family/other support, updating patient/family/other support, discussing plan of care with staff, communicating with other healthcare providers, documenting encounter and coordinating care Diagnoses Ischemic cardiomyopathy I25.5 Aortic stenosis I35.0 Atrial fibrillation I48.91 Anemia D64.9 HFrEF (heart failure with reduced ejection fraction) I50.20 Diabetes mellitus E11.9 NSTEMI (non-ST elevated myocardial infarction) I21.4 Congestive heart failure I50.9 Community acquired pneumonia J18.9 Elevated troponin R77.8 Respiratory failure with hypoxia J96.91 COPD (chronic obstructive pulmonary disease) J44.9 Need for comfort care
[2022-11-24] MEDS: morphine 4 mg/mL SDV 1 mL IVP ×3 (14:45→17:47)
--- NOTE | 2022-11-24 18:23 | PC.NURSE ---
SHift Summary: Uneventful shift. Patient transitioned to comfort care. Switched to nasal cannula. Morphine occaisonally given due to air hunger. Atropine drips given for excessive rattling/secretions.
--- NOTE | 2022-11-24 21:30 | PC.NURSE ---
[facility] Patient at 2055; asystole confirmed by monitor, this nurse, and VANE Ray. , Alexis Irving, notified and home confirmed. Dr. Harrell notified. 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 Awaiting follow up contact.
--- NOTE | 2022-11-25 00:17 | PC.NURSE ---
[facility] Followup Multiple calls from [facility] to confirm various details regarding patient information. After speaking with patient's , Ran Antony with [facility] stated that patient is in fact not a candidate for organ donation. [facility] to contact for candidate qualification. Patient transported 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 Patient's wedding ring and gold colored watch remaining on body.
--- NOTE | 2022-11-25 05:31 | PC.NURSE ---
[facility] contacted and patient not a candidate for donation per Chary Glover.
--- NOTE | 2022-11-25 22:22 | PM.DDS ---
Discharge Providers DDS Date of Admission: 11/20/22 15:39 Date Summary Completed: 11/25/22 Attending Provider at Admission: Yung Morrison MD Time of : 20:56 Attending Provider at Discharge: Belinda Roche MD Primary Care Provider: Paola Moore MD DS Diagnoses Hospital Diagnoses (1) Ischemic cardiomyopathy: (2) Aortic stenosis: (3) Atrial fibrillation: (4) Anemia: (5) HFrEF (heart failure with reduced ejection fraction): (6) Diabetes mellitus: (7) NSTEMI (non-ST elevated myocardial infarction): (8) Congestive heart failure: (9) Community acquired pneumonia: (10) Elevated troponin: (11) Respiratory failure with hypoxia: (12) COPD (chronic obstructive pulmonary disease): (13) Need for comfort care: Reason for Visit Reason for Visit sob Brief History: Mr. Irving was a 77 year old man with multiple comorbidities including CAD, CHF, COPD on chronic oxygen who has had multiple hospital admissions over the past 2 weeks for Staphylococcus pneumonia, significant amount of scarring and infiltrates are still seen on his chest CT and x-rays.? Patient has known heart failure, has had recent NSTEMI.? He has been going into intermittent flash pulmonary edema because of heart failure and aortic stenosis.? On this current admission he also developed oliguric NADER and hyperkalemia.? His troponins continue to be elevated, he is not currently a candidate to undergo cardiac intervention because of his NADER and inability to lie flat due to respiratory distress. In spite of being maximally medically treated with antibiotics, diuretics, steroids, and other cardiac medications as appropriate not only on this admission but also the prior admissions over the past 2 weeks, he had no meaningful improvement in his quality of life.? Goals of care were discussed with patient's on 11/24 and after discussion with rest of the family, she elected to proceed with comfort care management. Patient on 11/24/22. Summary Date and Time of Date of : 11/24/22 Time of : 20:56 Additional Data Advance directives?: No Discharge Plan Discharge Patient Disposition: At Medical Facility Condition: Stable Prescriptions: No Action omeprazole 40 mg Capsule,Delayed Release(Dr/Ec) 40 mg PO BID docusate sodium 100 mg Capsule 200 mg PO BEDTIME cholecalciferol (vitamin D3) [Vitamin D3] 25 mcg (1,000 unit) Capsule 25 mcg PO DAILY fluticasone propion-salmeterol [Advair Diskus] 100-50 mcg/dose Blister With Device 1 inh INHALATION BID carboxymethylcellulose sodium [Refresh Liquigel] 1 % Drops, Liquid Gel 1 drp OPHTHALMIC (EYE) BID PRN (Reason: Dry Eye(S)) Combivent Respimat 20-100 mcg/actuation Mist 1 puff INHALATION Q6H PRN (Reason: Shortness Of Breath) ipratropium-albuterol 0.5 mg-3 mg(2.5 mg base)/3 mL solution for nebulization 3 ml inhalation Q4H PRN (Reason: shortness of breath or wheezing) Qty: 90 0RF albuterol sulfate 90 mcg/actuation HFA aerosol inhaler 2 inh inhalation Q4H PRN (Reason: shortness of breath or wheezing) Qty: 8.5 0RF atorvastatin 80 mg Tablet 80 mg PO QPM glimepiride 4 mg Tablet 2 mg PO QAM insulin glargine [Lantus Solostar U-100 Insulin] 100 unit/mL (3 mL) insulin pen 10 unit SUBCUT BID aspirin 81 mg Tablet,Delayed Release (Dr/Ec) 81 mg PO DAILY Qty: 0 0RF metoprolol tartrate 25 mg Tablet 12.5 mg PO Q12H 30 Days Qty: 30 2RF Atrovent HFA 17 mcg/actuation Hfa Aerosol Inhaler 2 puff INHALATION TID multivitamin Tablet 1 tab PO DAILY hydralazine 25 mg Tablet 25 mg PO BID amlodipine 10 mg Tablet 10 mg PO DAILY [id number] 3.5-400-10,000 yd-zajh-loeg/g Ointment 1 applic OPHTHALMIC (EYE) TID neomycin-polymyxin B-dexameth 3.5 mg/g-10,000 unit/g-0.1 % Ointment See Rx Instructions .ROUTE .COMPLEX Rx Instructions: apply 1 inch ribbion to affected eye as directed at bedtime use 3 times a day after surgery amiodarone 200 mg tablet 200 mg PO BID Qty: 60 3RF furosemide [Lasix] 40 mg tablet 40 mg PO BID Qty: 60 3RF potassium chloride [Klor-Con M20] 20 mEq tablet,ER particles/crystals 20 meq PO BID Qty: 60 0RF prednisone 5 mg tablet 5 mg PO BID Referrals: Paola Moore MD [Primary Care Provider] - Discharge Diet: Usual diet Discharge Activity: Resume usual activity DS Attestations Time Spent in /Discharge Care*: greater than 30 min Quality - AMI: AMI present?: No Quality - Stroke: CVA present?: No Symptom Onset Unknown: No Quality - VTE: VTE present?: No Deep Vein Thrombosis/Pulmonary Embolism Present on Admission: No Coding Level of Care Code Acute Code for Chg Fwd Diagnoses Ischemic cardiomyopathy I25.5 Aortic stenosis I35.0 Atrial fibrillation I48.91 Anemia D64.9 HFrEF (heart failure with reduced ejection fraction) I50.20 Diabetes mellitus E11.9 NSTEMI (non-ST elevated myocardial infarction) I21.4 Congestive heart failure I50.9 Community acquired pneumonia J18.9 Elevated troponin R77.8 Respiratory failure with hypoxia J96.91 COPD (chronic obstructive pulmonary disease) J44.9 Need for comfort care
== END 2022-11-24 20:56 | disposition expired ==
LOC: ER 14:45 → CSU 15:40 → ICU 11-22 11:46
PROVIDERS: Admitting Provider Internal Medicine; Emergency Provider Emergency Medicine; PCP Family Medicine; Visit Provider Student in an Organized Health Care Education/Training Program
DX: I13.0 Hypertensive heart and chronic kidney disease with heart failure and stage 1 through stage 4 chronic kidney disease, or unspecified chronic kidney disease (principal); I50.23 Acute on chronic systolic (congestive) heart failure; I21.4 Non-ST elevation (NSTEMI) myocardial infarction; J15.211 Pneumonia due to Methicillin susceptible Staphylococcus aureus; J96.21 Acute and chronic respiratory failure with hypoxia; N18.4 Chronic kidney disease, stage 4 (severe); J44.0 Chronic obstructive pulmonary disease with (acute) lower respiratory infection; N17.9 Acute kidney failure, unspecified; E11.22 Type 2 diabetes mellitus with diabetic chronic kidney disease; I25.5 Ischemic cardiomyopathy; I35.0 Nonrheumatic aortic (valve) stenosis; I48.91 Unspecified atrial fibrillation; D64.9 Anemia, unspecified; Z99.81 Dependence on supplemental oxygen; Z66 Do not resuscitate; I25.10 Atherosclerotic heart disease of native coronary artery without angina pectoris; Z95.1 Presence of aortocoronary bypass graft; Z95.3 Presence of xenogenic heart valve; Z87.891 Personal history of nicotine dependence; E87.6 Hypokalemia
CPT/HCPCS: 36415; 36416; 36430; 36600; 51702; 71045; 71275; 80048; 80051; 80053; 80202; 82330; 82803; 82805; 82962; 83605; 83735; 83880; 84145; 84484; 85007; 85025; 85610; 86850; 86870; 86900; 86920; 87040; 87070; 87205; 87486; 87581; 87633; 87641; 93005; 94640; 94660; 96365; 96372; 96375; 96376; 99285; J1650; J1815; J1940; J2060; J2185; J2270; J2543; J2930; J3370; J3480; J7050; J7626; P9016; P9046; Q9967